=== PATIENT | female | born 1965 | race Caucasian/White ===

== ENCOUNTER 2020-06-28 16:22 | Emergency (ER) | payer MEDICARE, MEDICAID, SELFPAY ==
--- NOTE | 2020-06-28 | ECG_ITS ---
Test Reason : ALTERED MENTAL Blood Pressure : / mmHG Vent. Rate : 077 BPM Atrial Rate : 077 BPM P-R Int : 152 ms QRS Dur : 072 ms QT Int : 378 ms P-R-T Axes : 006 043 047 degrees QTc Int : 427 ms Normal sinus rhythm Normal ECG When compared with ECG of 31-MAY-2020 13:34, No significant change was found Referred By: Tristian Stanley Electronically Signed By:MARTA CESAR
--- NOTE | 2020-06-28 | CT_ITS ---
EXAMINATION: CT HEAD WITHOUT CONTRAST CLINICAL INFORMATION: Loss of consciousness. COMPARISON: Report from 05/31/2020. Images not available. TECHNIQUE: Contiguous axial imaging was performed from the skull base to vertex without intravenous contrast. This CT examination was performed using dose optimization techniques as appropriate, variously including the following: * Automated exposure control * Adjustment of mA and/or kV according to patient size (this includes techniques or standardized protocols for targeted exams where dose is matched to indication/reason for exam; i.e. extremities or head) Use of iterative reconstruction technique DLP: 640 mGy-cm. FINDINGS: Status post left parietal craniotomy with surgical plate fixation. Underlying area of encephalomalacia in the left parietal lobe. There is no evidence of acute intracranial hemorrhage or territorial infarction. No abnormal mass effect or midline shift is seen. Vasquez to white matter differentiation is otherwise well preserved. No extra-axial fluid collections are identified. No hydrocephalus. No significant volume loss. The osseous structures and soft tissues are normal. The mastoid air cells and visualized portions of the paranasal sinuses are well aerated. IMPRESSION: No acute intracranial pathology. Chronic left parietal encephalomalacia.
[2020-06-28 16:43] VITALS: BP 119/70; BP 86/59; PULSE 77; PULSE 80; RESP 18; TEMP 36.1; O2SAT 100; BMI 17.9
--- NOTE | 2020-06-28 17:05 | ED.AMS ---
HPI - Altered Mental Status General Chief Complaint: Altered Mental Status <Barber Romero MD - Last Filed: 06/28/20 20:16> Stated Complaint: ams <Barber Romero MD - Last Filed: 06/28/20 20:16> Time Seen by Provider: 06/28/20 17:04 <Barber Romero MD - Last Filed: 06/28/20 20:16> Source: EMS and RN notes reviewed <Barber Romero MD - Last Filed: 06/28/20 20:16> Mode of arrival: EMS <Barber Romero MD - Last Filed: 06/28/20 20:16> Limitations: altered mental status <Barber Romero MD - Last Filed: 06/28/20 20:16> History of Present Illness HPI narrative: Increased medication and now with lethargy and slurring. Patient also believes that she had seizures today. <Barber Romero MD - Last Filed: 06/28/20 20:16> MD complaint: altered mental status <Barber Romero MD - Last Filed: 06/28/20 20:16> Onset (ago): hour(s) <Barber Romero MD - Last Filed: 06/28/20 20:16> Severity: moderate <Barber Romero MD - Last Filed: 06/28/20 20:16> Consistency of symptoms: constant <Barber Romero MD - Last Filed: 06/28/20 20:16> Context: change in medication and seizure disorder <Barber Romero MD - Last Filed: 06/28/20 20:16> Associated symptoms: denies other symptoms <Barber Romero MD - Last Filed: 06/28/20 20:16> Related Data Allergies/Adverse Reactions: Allergies Allergy/AdvReac Type Severity Reaction Status Date / Time Iodinated Contrast Media Allergy Intermediate RED ALL Verified 06/28/20 16:53 [IV Dye, Iodine Containing] OVER NAUSEA AND LOST RESPIRATIONS Penicillins [PENICILLINS] Allergy Unknown UNKNOWN Verified 06/28/20 16:53 REACTION phenytoin [From Dilantin] Allergy Unknown Unknown Verified 06/28/20 16:55 <Barber Romero MD - Last Filed: 06/28/20 20:16> Review of Systems Constitutional: Constitutional: Reports no additional constitutional complaints <Barber Romero MD - Last Filed: 06/28/20 20:16> Eyes: Eyes: Reports no additional eye complaints <Barber Romero MD - Last Filed: 06/28/20 20:16> ENT: Denies dizziness <Barber Romero MD - Last Filed: 06/28/20 20:16> Cardiovascular: Cardiovascular: Reports no additional cardiovascular complaints <Barber Romero MD - Last Filed: 06/28/20 20:16> Respiratory: Respiratory: Reports as per HPI <Barber Romero MD - Last Filed: 06/28/20 20:16> Gastrointestinal: Gastrointestinal: Reports no additional gastrointestinal complaints <Barber Romero MD - Last Filed: 06/28/20 20:16> Genitourinary: Genitourinary: Reports no additional female genitourinary complaints <Barber Romero MD - Last Filed: 06/28/20 20:16> Musculoskeletal: Musculoskeletal: Reports no additional musculoskeletal complaints <Barber Romero MD - Last Filed: 06/28/20 20:16> Integumentary/Breasts: Skin/Breast: Denies rash <Barber Romero MD - Last Filed: 06/28/20 20:16> Neurologic: Denies dizziness and Denies Sensory deficit (Neuro) <Barber Romero MD - Last Filed: 06/28/20 20:16> Comments: lethargy <Barber Romero MD - Last Filed: 06/28/20 20:16> Psychiatric: Psychiatric: Denies anxiety <Barber Romero MD - Last Filed: 06/28/20 20:16> PMFSH Past Medical History Medical History: Medical History (Updated 06/29/20 @ 01:28 by Tristian Stanley DO) Hypotension Seizures <Barber Romero MD - Last Filed: 06/28/20 20:16> Surgical History: Surgical History (Updated 06/28/20 @ 16:49 by Nilda Reagan) Surgical history unknown <Barber Romero MD - Last Filed: 06/28/20 20:16> Social History Social History: Social History Advance Directives: No Advance Directives Information Provided: No <Barber Romero MD - Last Filed: 06/28/20 20:16> Physical Exam Vital Signs and I&O and Narrative: Vital Signs and I&O: Vital Signs Temp 97.9 F 06/28/20 21:03 Pulse 79 06/28/20 23:58 Resp 16 06/28/20 23:58 BP 110/55 L 06/28/20 23:58 Pulse Ox 99 06/28/20 23:58 Intake & Output 06/28/20 06/28/20 06/29/20 06:59 18:59 06:59 Weight 50.349 kg Body Mass Index 17.9 <Barber Romero MD - Last Filed: 06/28/20 20:16> Vital Signs and I&O: Vital Signs Temp 97.9 F 06/28/20 21:03 Pulse 79 06/28/20 23:58 Resp 16 06/28/20 23:58 BP 110/55 L 06/28/20 23:58 Pulse Ox 99 06/28/20 23:58 Intake & Output 06/28/20 06/28/20 06/29/20 06:59 18:59 06:59 Weight 50.349 kg Body Mass Index 17.9 <Tristian Stanley DO - Last Filed: 06/29/20 02:25> Const: Other: Female looking older than stated age, chronically ill, lethargic <Barber Romero MD - Last Filed: 06/28/20 20:16> General: lethargic <Barber Romero MD - Last Filed: 06/28/20 20:16> Nutritional Appearance: average body habitus <Barber Romero MD - Last Filed: 06/28/20 20:16> Orientation/consciousness: oriented to place and lethargic <Barber Romero MD - Last Filed: 06/28/20 20:16> Limitations: altered mental status <Barber Romero MD - Last Filed: 06/28/20 20:16> HENMT: Head: Yes normal to inspection <Barber Romero MD - Last Filed: 06/28/20 20:16> Ears: external ears normal <Barber Romero MD - Last Filed: 06/28/20 20:16> General nose exam: Normal external nose present <Barber Romero MD - Last Filed: 06/28/20 20:16> Mouth: Normal oral and palatal mucosa present and oropharynx normal <Barber Romero MD - Last Filed: 06/28/20 20:16> Throat: Yes posterior oropharynx normal <Barber Romero MD - Last Filed: 06/28/20 20:16> Eyes: General: appearance normal, both eyes and all related structures <Barber Romero MD - Last Filed: 06/28/20 20:16> Neck: Other: supple <Barber Romero MD - Last Filed: 06/28/20 20:16> Neck: Yes normal visual inspection <Barber Romero MD - Last Filed: 06/28/20 20:16> Chest: Chest palpation & inspection: normal inspection of the chest <Barber Romero MD - Last Filed: 06/28/20 20:16> Resp: Auscultation: clear to auscultation bilaterally <Barber Romero MD - Last Filed: 06/28/20 20:16> Cardio: Jugular venous distension: no JVD <Barber Romero MD - Last Filed: 06/28/20 20:16> Rate: regular rate <Barber Romero MD - Last Filed: 06/28/20 20:16> Rhythm: regular rhythm <Barber Romero MD - Last Filed: 06/28/20 20:16> Heart sounds: S1 normal heart sound present and S2 normal heart sound present <Barber Romero MD - Last Filed: 06/28/20 20:16> GI: Inspection: Yes normal to inspection <Barber Romero MD - Last Filed: 06/28/20 20:16> Palpation (GI): Soft to palpation, nontender and No hepatosplenomegaly present <Barber Romero MD - Last Filed: 06/28/20 20:16> Auscultation: normal bowel sounds <Barber Romero MD - Last Filed: 06/28/20 20:16> : General: Yes no CVA tenderness <Barber Romero MD - Last Filed: 06/28/20 20:16> Back/Spine/Pelvis: Back: no CVA tenderness <Barber Romero MD - Last Filed: 06/28/20 20:16> Skin: General skin exam: no rashes or lesions noted <Barber Romero MD - Last Filed: 06/28/20 20:16> Neuro: General: oriented to place <Barber Romero MD - Last Filed: 06/28/20 20:16> Cranial nerves: Yes CN's II-XII intact bilaterally <Barber Romero MD - Last Filed: 06/28/20 20:16> Motor exam (neuro): 5/5 motor strength present throughout <Barber Romero MD - Last Filed: 06/28/20 20:16> Sensory Exam: No Sensory deficit (Neuro) <Barber Romero MD - Last Filed: 06/28/20 20:16> Extrem: General: Yes normal to inspection <Barber Romero MD - Last Filed: 06/28/20 20:16> Psych: Appearance: grossly normal <Barber Romero MD - Last Filed: 06/28/20 20:16> Course Course Course Narrative: awaiting family and list of meds patient verbally arousable. <Barber Romero MD - Last Filed: 06/28/20 20:16> Patient's altered status had dramatically improved in the emergency department. CT scan of the brain showed was negative laboratory work within normal limits. Patient was able to walk around the ER tolerating p.o. his family is picking up patient. I do believe the patient medicine and was recently increased Xcorpi from 12.5-25 mg is causing her to have drowsiness as a side effect. I did discuss this with patient and family in regards to follow-up with primary care on further directions and to hold medication and till speaking with them <Tristian Stanley DO - Last Filed: 06/29/20 02:25> Reevaluation(s) Reevaluation #1: signed out to Dr. Stanley awaiting patient to sober up and medication list <Barber Romero MD - Last Filed: 06/28/20 20:16> Time: 20:16 <Barber Romero MD - Last Filed: 06/28/20 20:16> MDM - Altered Mental Status Lab Data Result diagrams: : 06/28/20 18:10 06/28/20 18:10 <Barber Romero MD - Last Filed: 06/28/20 20:16> Labs: Lab Results 06/28/20 06/28/20 06/28/20 Range/Units 17:38 18:10 18:10 WBC 7.3 (4.8-10.8) X10*3/uL RBC 3.62 L (4.20-5.50) X10*6/uL Hgb 11.0 L (12.0-16.0) g/dl Hct 33.1 L (37-47) % MCV 91.4 (80-98) fL MCH 30.4 (27.0-33.0) pg MCHC 33.2 (31.0-35.0) g/dl RDW 14.1 (11.0-16.0) % Plt Count 319 (160-400) X10*3/uL MPV 8.3 L (9.4-12.3) fL Immature Gran % (Auto) 0.4 (0.0-0.4) % Neut % (Auto) 71.9 (45-73) % Lymph % (Auto) 14.0 L (20-40) % Lipscomb % (Auto) 11.7 H (2-11) % Eos % (Auto) 1.2 (0-4) % Baso % (Auto) 0.8 (0-2) % Neut # (Auto) 5.2 (2.0-8.3) X10*3/uL Lymph # (Auto) 1.0 L (1.2-4.9) X10*3/uL Lipscomb # (Auto) 0.9 (0.1-1.2) X10*3/uL Eos # (Auto) 0.1 (0.0-0.4) X10*3/uL Baso # (Auto) 0.1 (0.0-0.2) X10*3/uL Abs Immat Gran (auto) 0.03 (0.00-0.03) X10*3/uL Absolute Nucleated RBC 0.000 (0.0-0.012) X10*3/uL Nucleated RBC % (auto) 0.0 (0.0-0.2) /100WBC Hold Blue Top SEE NOTE Sodium (135-145) mmol/L Potassium (3.3-5.1) mmol/l Chloride (96-108) mmol/L Carbon Dioxide (22-29) mmol/L Anion Gap (12-20) BUN (9-16) mg/dL Creatinine (0.5-1.4) mg/dL Estim Creat Clear Calc Estimated GFR POC Glucose 71 (60-115) mg/dL Random Glucose (60-115) mg/dL Calcium (8.4-10.2) mg/dL Troponin I High Sens (<3.5-17.0) ng/L Urine Color Urine Appearance Urine pH (5.0-8.0) Ur Specific [place] (1.005-1.025) Urine Protein (NEG-TRACE) MG/DL Urine Glucose (UA) (NEG) MG/DL Urine Ketones (NEG) MG/DL Urine Blood (NEG) Urine Nitrite (NEG) Ur Leukocyte Esterase (NEG) Urine Test (NEGATIVE) Urine Opiates Screen (Not Detect) Ur Barbiturates Screen (Not Detect) Ur Phencyclidine Scrn (Not Detect) Ur Amphetamines Screen (Not Detect) U Benzodiazepines Scrn (Not Detect) Urine Cocaine Screen (Not Detect) U Marijuana (THC) Screen (Not Detect) Ethyl Alcohol mg/dL 06/28/20 06/28/20 06/28/20 Range/Units 18:10 18:10 21:01 WBC (4.8-10.8) X10*3/uL RBC (4.20-5.50) X10*6/uL Hgb (12.0-16.0) g/dl Hct (37-47) % MCV (80-98) fL MCH (27.0-33.0) pg MCHC (31.0-35.0) g/dl RDW (11.0-16.0) % Plt Count (160-400) X10*3/uL MPV (9.4-12.3) fL Immature Gran % (Auto) (0.0-0.4) % Neut % (Auto) (45-73) % Lymph % (Auto) (20-40) % Lipscomb % (Auto) (2-11) % Eos % (Auto) (0-4) % Baso % (Auto) (0-2) % Neut # (Auto) (2.0-8.3) X10*3/uL Lymph # (Auto) (1.2-4.9) X10*3/uL [place]comb # (Auto) (0.1-1.2) X10*3/uL Eos # (Auto) (0.0-0.4) X10*3/uL Baso # (Auto) (0.0-0.2) X10*3/uL Abs Immat Gran (auto) (0.00-0.03) X10*3/uL Absolute Nucleated RBC (0.0-0.012) X10*3/uL Nucleated RBC % (auto) (0.0-0.2) /100WBC Hold Blue Top Sodium 131 L (135-145) mmol/L Potassium 4.8 (3.3-5.1) mmol/l Chloride 96 (96-108) mmol/L Carbon Dioxide 27 (22-29) mmol/L Anion Gap 13 (12-20) BUN 12 (9-16) mg/dL Creatinine 0.64 (0.5-1.4) mg/dL Estim Creat Clear Calc 81.7 Estimated GFR > 60 POC Glucose (60-115) mg/dL Random Glucose 77 (60-115) mg/dL Calcium 8.8 (8.4-10.2) mg/dL Troponin I High Sens (<3.5-17.0) ng/L Urine Color YELLOW Urine Appearance CLEAR Urine pH 7.0 (5.0-8.0) Ur Specific [place] 1.020 (1.005-1.025) Urine Protein NEG (NEG-TRACE) MG/DL Urine Glucose (UA) NEG (NEG) MG/DL Urine Ketones NEG (NEG) MG/DL Urine Blood NEG (NEG) Urine Nitrite NEG (NEG) Ur Leukocyte Esterase NEG (NEG) Urine Test (NEGATIVE) Urine Opiates Screen (Not Detect) Ur Barbiturates Screen (Not Detect) Ur Phencyclidine Scrn (Not Detect) Ur Amphetamines Screen (Not Detect) U Benzodiazepines Scrn (Not Detect) Urine Cocaine Screen (Not Detect) U Marijuana (THC) Screen (Not Detect) Ethyl Alcohol < 10 mg/dL 06/28/20 06/28/20 06/28/20 Range/Units 21:01 21:01 21:01 WBC (4.8-10.8) X10*3/uL RBC (4.20-5.50) X10*6/uL Hgb (12.0-16.0) g/dl Hct (37-47) % MCV (80-98) fL MCH (27.0-33.0) pg MCHC (31.0-35.0) g/dl RDW (11.0-16.0) % Plt Count (160-400) X10*3/uL MPV (9.4-12.3) fL Immature Gran % (Auto) (0.0-0.4) % Neut % (Auto) (45-73) % Lymph % (Auto) (20-40) % Lipscomb % (Auto) (2-11) % Eos % (Auto) (0-4) % Baso % (Auto) (0-2) % Neut # (Auto) (2.0-8.3) X10*3/uL Lymph # (Auto) (1.2-4.9) X10*3/uL [place]comb # (Auto) (0.1-1.2) X10*3/uL Eos # (Auto) (0.0-0.4) X10*3/uL Baso # (Auto) (0.0-0.2) X10*3/uL Abs Immat Gran (auto) (0.00-0.03) X10*3/uL Absolute Nucleated RBC (0.0-0.012) X10*3/uL Nucleated RBC % (auto) (0.0-0.2) /100WBC Hold Blue Top Sodium (135-145) mmol/L Potassium (3.3-5.1) mmol/l Chloride (96-108) mmol/L Carbon Dioxide (22-29) mmol/L Anion Gap (12-20) BUN (9-16) mg/dL Creatinine (0.5-1.4) mg/dL Estim Creat Clear Calc Estimated GFR POC Glucose (60-115) mg/dL Random Glucose (60-115) mg/dL Calcium (8.4-10.2) mg/dL Troponin I High Sens < 3.5 (<3.5-17.0) ng/L Urine Color Urine Appearance Urine pH (5.0-8.0) Ur Specific [place] (1.005-1.025) Urine Protein (NEG-TRACE) MG/DL Urine Glucose (UA) (NEG) MG/DL Urine Ketones (NEG) MG/DL Urine Blood (NEG) Urine Nitrite (NEG) Ur Leukocyte Esterase (NEG) Urine Test NEGATIVE (NEGATIVE) Urine Opiates Screen Not Detected (Not Detect) Ur Barbiturates Screen POSITIVE H (Not Detect) Ur Phencyclidine Scrn Not Detected (Not Detect) Ur Amphetamines Screen Not Detected (Not Detect) U Benzodiazepines Scrn POSITIVE H (Not Detect) Urine Cocaine Screen Not Detected (Not Detect) U Marijuana (THC) Screen Not Detected (Not Detect) Ethyl Alcohol mg/dL <Barber Romero MD - Last Filed: 06/28/20 20:16> Lab Results 06/28/20 06/28/20 06/28/20 Range/Units 17:38 18:10 18:10 WBC 7.3 (4.8-10.8) X10*3/uL RBC 3.62 L (4.20-5.50) X10*6/uL Hgb 11.0 L (12.0-16.0) g/dl Hct 33.1 L (37-47) % MCV 91.4 (80-98) fL MCH 30.4 (27.0-33.0) pg MCHC 33.2 (31.0-35.0) g/dl RDW 14.1 (11.0-16.0) % Plt Count 319 (160-400) X10*3/uL MPV 8.3 L (9.4-12.3) fL Immature Gran % (Auto) 0.4 (0.0-0.4) % Neut % (Auto) 71.9 (45-73) % Lymph % (Auto) 14.0 L (20-40) % Lipscomb % (Auto) 11.7 H (2-11) % Eos % (Auto) 1.2 (0-4) % Baso % (Auto) 0.8 (0-2) % Neut # (Auto) 5.2 (2.0-8.3) X10*3/uL Lymph # (Auto) 1.0 L (1.2-4.9) X10*3/uL [place] # (Auto) 0.9 (0.1-1.2) X10*3/uL Eos # (Auto) 0.1 (0.0-0.4) X10*3/uL Baso # (Auto) 0.1 (0.0-0.2) X10*3/uL Abs Immat Gran (auto) 0.03 (0.00-0.03) X10*3/uL Absolute Nucleated RBC 0.000 (0.0-0.012) X10*3/uL Nucleated RBC % (auto) 0.0 (0.0-0.2) /100WBC Hold Blue Top SEE NOTE Sodium (135-145) mmol/L Potassium (3.3-5.1) mmol/l Chloride (96-108) mmol/L Carbon Dioxide (22-29) mmol/L Anion Gap (12-20) BUN (9-16) mg/dL Creatinine (0.5-1.4) mg/dL Estim Creat Clear Calc Estimated GFR POC Glucose 71 (60-115) mg/dL Random Glucose (60-115) mg/dL Calcium (8.4-10.2) mg/dL Troponin I High Sens (<3.5-17.0) ng/L Urine Color Urine Appearance Urine pH (5.0-8.0) Ur Specific [place] (1.005-1.025) Urine Protein (NEG-TRACE) MG/DL Urine Glucose (UA) (NEG) MG/DL Urine Ketones (NEG) MG/DL Urine Blood (NEG) Urine Nitrite (NEG) Ur Leukocyte Esterase (NEG) Urine Test (NEGATIVE) Urine Opiates Screen (Not Detect) Ur Barbiturates Screen (Not Detect) Ur Phencyclidine Scrn (Not Detect) Ur Amphetamines Screen (Not Detect) U Benzodiazepines Scrn (Not Detect) Urine Cocaine Screen (Not Detect) U Marijuana (THC) Screen (Not Detect) Ethyl Alcohol mg/dL 06/28/20 06/28/20 06/28/20 Range/Units 18:10 18:10 21:01 WBC (4.8-10.8) X10*3/uL RBC (4.20-5.50) X10*6/uL Hgb (12.0-16.0) g/dl Hct (37-47) % MCV (80-98) fL MCH (27.0-33.0) pg MCHC (31.0-35.0) g/dl RDW (11.0-16.0) % Plt Count (160-400) X10*3/uL MPV (9.4-12.3) fL Immature Gran % (Auto) (0.0-0.4) % Neut % (Auto) (45-73) % Lymph % (Auto) (20-40) % [place] % (Auto) (2-11) % Eos % (Auto) (0-4) % Baso % (Auto) (0-2) % Neut # (Auto) (2.0-8.3) X10*3/uL Lymph # (Auto) (1.2-4.9) X10*3/uL [place] # (Auto) (0.1-1.2) X10*3/uL Eos # (Auto) (0.0-0.4) X10*3/uL Baso # (Auto) (0.0-0.2) X10*3/uL Abs Immat Gran (auto) (0.00-0.03) X10*3/uL Absolute Nucleated RBC (0.0-0.012) X10*3/uL Nucleated RBC % (auto) (0.0-0.2) /100WBC Hold Blue Top Sodium 131 L (135-145) mmol/L Potassium 4.8 (3.3-5.1) mmol/l Chloride 96 (96-108) mmol/L Carbon Dioxide 27 (22-29) mmol/L Anion Gap 13 (12-20) BUN 12 (9-16) mg/dL Creatinine 0.64 (0.5-1.4) mg/dL Estim Creat Clear Calc 81.7 Estimated GFR > 60 POC Glucose (60-115) mg/dL Random Glucose 77 (60-115) mg/dL Calcium 8.8 (8.4-10.2) mg/dL Troponin I High Sens (<3.5-17.0) ng/L Urine Color YELLOW Urine Appearance CLEAR Urine pH 7.0 (5.0-8.0) Ur Specific [place] 1.020 (1.005-1.025) Urine Protein NEG (NEG-TRACE) MG/DL Urine Glucose (UA) NEG (NEG) MG/DL Urine Ketones NEG (NEG) MG/DL Urine Blood NEG (NEG) Urine Nitrite NEG (NEG) Ur Leukocyte Esterase NEG (NEG) Urine Test (NEGATIVE) Urine Opiates Screen (Not Detect) Ur Barbiturates Screen (Not Detect) Ur Phencyclidine Scrn (Not Detect) Ur Amphetamines Screen (Not Detect) U Benzodiazepines Scrn (Not Detect) Urine Cocaine Screen (Not Detect) U Marijuana (THC) Screen (Not Detect) Ethyl Alcohol < 10 mg/dL 06/28/20 06/28/20 06/28/20 Range/Units 21:01 21:01 21:01 WBC (4.8-10.8) X10*3/uL RBC (4.20-5.50) X10*6/uL Hgb (12.0-16.0) g/dl Hct (37-47) % MCV (80-98) fL MCH (27.0-33.0) pg MCHC (31.0-35.0) g/dl RDW (11.0-16.0) % Plt Count (160-400) X10*3/uL MPV (9.4-12.3) fL Immature Gran % (Auto) (0.0-0.4) % Neut % (Auto) (45-73) % Lymph % (Auto) (20-40) % [place] % (Auto) (2-11) % Eos % (Auto) (0-4) % Baso % (Auto) (0-2) % Neut # (Auto) (2.0-8.3) X10*3/uL Lymph # (Auto) (1.2-4.9) X10*3/uL [place] # (Auto) (0.1-1.2) X10*3/uL Eos # (Auto) (0.0-0.4) X10*3/uL Baso # (Auto) (0.0-0.2) X10*3/uL Abs Immat Gran (auto) (0.00-0.03) X10*3/uL Absolute Nucleated RBC (0.0-0.012) X10*3/uL Nucleated RBC % (auto) (0.0-0.2) /100WBC Hold Blue Top Sodium (135-145) mmol/L Potassium (3.3-5.1) mmol/l Chloride (96-108) mmol/L Carbon Dioxide (22-29) mmol/L Anion Gap (12-20) BUN (9-16) mg/dL Creatinine (0.5-1.4) mg/dL Estim Creat Clear Calc Estimated GFR POC Glucose (60-115) mg/dL Random Glucose (60-115) mg/dL Calcium (8.4-10.2) mg/dL Troponin I High Sens < 3.5 (<3.5-17.0) ng/L Urine Color Urine Appearance Urine pH (5.0-8.0) Ur Specific [place] (1.005-1.025) Urine Protein (NEG-TRACE) MG/DL Urine Glucose (UA) (NEG) MG/DL Urine Ketones (NEG) MG/DL Urine Blood (NEG) Urine Nitrite (NEG) Ur Leukocyte Esterase (NEG) Urine Test NEGATIVE (NEGATIVE) Urine Opiates Screen Not Detected (Not Detect) Ur Barbiturates Screen POSITIVE H (Not Detect) Ur Phencyclidine Scrn Not Detected (Not Detect) Ur Amphetamines Screen Not Detected (Not Detect) U Benzodiazepines Scrn POSITIVE H (Not Detect) Urine Cocaine Screen Not Detected (Not Detect) U Marijuana (THC) Screen Not Detected (Not Detect) Ethyl Alcohol mg/dL <Tristian Stanley DO - Last Filed: 06/29/20 02:25> Discharge Plan Discharge Clinical Impression: Medication adverse effect Qualifiers: Encounter type: initial encounter Qualified Code(s): T50.905A - Adverse effect of unspecified drugs, medicaments and biological substances, initial encounter <Barber Romero MD - Last Filed: 06/28/20 20:16> Patient Disposition: Home, Self-Care <Barber Romero MD - Last Filed: 06/28/20 20:16> Instructions: Medication Safety for Older Adults (ED) <Barber Romero MD - Last Filed: 06/28/20 20:16> Additional Instructions: call your doctor in the morning in regards to your medication Xcorpri which I believe has been making you more altered than usual. Thank you for visiting the emergency department today. If your symptoms worsen or do not resolve completely please return to the emergency department immediately or call 911. if he have any questions please call your primary care physician <Barber Romero MD - Last Filed: 06/28/20 20:16> Referrals: [facility] [Provider Group] - 2 days <Barber Romero MD - Last Filed: 06/28/20 20:16> Interventions: ED Discharge Assessment Last Done: 06/29/20 01:42 <Barber Romero MD - Last Filed: 06/28/20 20:16> Discharge Date/Time: 06/29/20 01:46 <Barber Romero MD - Last Filed: 06/28/20 20:16>
[2020-06-28 17:41] LABS: Glucose, Whole Blood 71 mg/dL (60-115)
[2020-06-28 18:14] LABS: MANUAL DIFF FLAG NO
[2020-06-28 18:16] LABS: Basophils Absolute Auto 0.1 X10*3/uL (0.0-0.2); Basophils Percent Auto 0.8 % (0-2); Eosinophils Absolute Auto 0.1 X10*3/uL (0.0-0.4); Eosinophils Percent Auto 1.2 % (0-4); Hematocrit 33.1 % (37-47); Imm Gran Abs Auto 0.03 X10*3/uL (0.00-0.03); Imm Gran Pct Auto 0.4 % (0.0-0.4); Mean Corpuscular HGB Conc 33.2 g/dl (31.0-35.0); Mean Corpuscular Hemoglobin 30.4 pg (27.0-33.0); Mean Corpuscular Volume 91.4 fL (80-98); Mean Platelet Volume 8.3 fL (9.4-12.3); Monocytes Absolute Auto 0.9 X10*3/uL (0.1-1.2); Monocytes Percent Auto 11.7 % (2-11); Neutrophils Absolute Auto 5.2 X10*3/uL (2.0-8.3); Neutrophils Percent Auto 71.9 % (45-73); Platelet Count 319 X10*3/uL (160-400); Red Blood Count 3.62 X10*6/uL (4.20-5.50); Red Cell Distribution Width 14.1 % (11.0-16.0); White Blood Count 7.3 X10*3/uL (4.8-10.8)
[2020-06-28 18:38] LABS: Ethanol < 10 mg/dL
[2020-06-28 18:40] LABS: Anion Gap 13 (12-20); Blood Urea Nitrogen 12 mg/dL (9-16); Calcium 8.8 mg/dL (8.4-10.2); Carbon Dioxide 27 mmol/L (22-29); Chloride 96 mmol/L (96-108); Creatinine Clr Calc Pharmacy 81.7; Estimated Glomerular Filt Rate > 60; Glucose Random 77 mg/dL (60-115); Potassium 4.8 mmol/l (3.3-5.1); Sodium 131 mmol/L (135-145)
--- NOTE | 2020-06-28 19:20 | PC.NURSE ---
Report taken from Kenisha, this RN resuming care. Pt found sitting upright in bed, awake and alert, speech garbled, pt very difficult to understand. Per previous RN, garbled speech and slow movements since increase in unknown SZ medication. Continue to monitor.
--- NOTE | 2020-06-28 20:23 | PC.NURSE ---
Per MD, plan to obtain UA and eat/drink. Pt removing IV at this time. Pt found holding jloop in her hand.
--- NOTE | 2020-06-28 20:40 | PC.NURSE ---
Per daughter, pts medications are locked in a lock box and given to her by an RN. Per daughter, the new SZ medication is Xcopri and the dose was increased from 12.5 mg to 25 mg. Per daughter, she has only been on Xcopri for 4 weeks. Pt assisted to the bathroom but was unable to void, per bladder scan, 518 ml in bladder. aware. Pt provided with food/drink at this time.
[2020-06-28 21:03] VITALS: BP 132/80; PULSE 76; RESP 16; TEMP 36.6; O2SAT 100
[2020-06-28 21:32] LABS: Glucose Urine UA NEG (NEG); Leukocyte Esterase Urine NEG (NEG); Nitrite Urine NEG (NEG); Urine Blood NEG (NEG); Urine Ketones NEG (NEG); Urine Protein NEG (NEG-TRACE)
[2020-06-28 21:36] LABS: Amphetamine Screen Urine Not Detected (Not Detect); Barbiturates, Urine POSITIVE (Not Detect); Benzodiazepines Screen Urine POSITIVE (Not Detect); Cannabinoid Screen Urine Not Detected (Not Detect); Cocaine Screen Urine Not Detected (Not Detect); Opiate Screen Urine Not Detected (Not Detect); Phencyclidine Screen Urine Not Detected (Not Detect)
[2020-06-28 21:37] LABS: Appearance Urine CLEAR; Color Urine YELLOW; UACC Culture Trigger NO
[2020-06-28 21:40] LABS: Troponin-I High Sensitivity < 3.5 ng/L (<3.5-17.0)
[2020-06-28 21:42] LABS: UPreg QC Valid YES; Urine Pregnancy NEGATIVE (NEGATIVE)
[2020-06-28 23:58] VITALS: BP 110/55; PULSE 79; RESP 16; O2SAT 99
--- NOTE | 2020-06-29 00:27 | PC.NURSE ---
Pt ambulating with a steady gait, agreeable to plan to DC home.
--- NOTE | 2020-06-29 00:53 | PC.NURSE ---
This RN calling pts daughter to obtain a ride home, daughter not answering phone at this time.
--- NOTE | 2020-06-29 01:20 | PC.NURSE ---
Daughter calling back, stating she will be on her way to pick pt up. aware.
== END 2020-06-29 01:46 | disposition home or self-care (01) ==
PROVIDERS: Emergency Medicine; Emergency Provider Emergency Medicine
DX: R41.82 Altered mental status, unspecified (principal); R47.81 Slurred speech; T50.915A Adverse effect of multiple unspecified drugs, medicaments and biological substances, initial encounter; Y92.9 Unspecified place or not applicable; Z79.899 Other long term (current) drug therapy
CPT/HCPCS: 36415; 70450; 80048; 80307; 80320; 81003; 81025; 82947; 84484; 85025; 93005; 93010; 99284

== ENCOUNTER 2020-09-28 16:52 | Emergency (ER) | payer OTHER, MEDICAID, SELFPAY ==
[2020-09-28 17:08] VITALS: BP 144/82; PULSE 63; RESP 13; TEMP 36.8; O2SAT 100; BMI 27.4
--- NOTE | 2020-09-28 17:31 | ECG_ITS ---
Test Reason : FALL HEAD TRAUMA SEI Blood Pressure : / mmHG Vent. Rate : 073 BPM Atrial Rate : 073 BPM P-R Int : 166 ms QRS Dur : 078 ms QT Int : 386 ms P-R-T Axes : 073 065 071 degrees QTc Int : 425 ms Normal sinus rhythm Normal ECG When compared with ECG of 28-JUN-2020 20:49, No significant change was found Referred By: Brittany Leroy Electronically Signed By:Yuri Burnette
--- NOTE | 2020-09-28 17:31 | CT_ITS ---
EXAMINATION: CT HEAD WITHOUT CONTRAST CT CERVICAL SPINE WITHOUT CONTRAST CLINICAL INFORMATION: Seizures. Head trauma. COMPARISON: CT head 06/28/2020. CT cervical spine 03/07/2020 TECHNIQUE: Imaging was performed from the skull base to vertex without intravenous administration of contrast. In addition, helical noncontrast CT imaging was acquired through the cervical spine and source images were reviewed along with axial reconstructions and sagittal and coronal MPRs. [This CT examination was performed using dose optimization techniques as appropriate, variously including the following: *Automated exposure control *Adjustment of mA and/or kV according to patient size (this includes techniques or standardized protocols for targeted exams where dose is matched to indication/reason for exam; i.e. extremities or head) *Use of iterative reconstruction technique] DLP: 1077 mGy-cm FINDINGS: HEAD: Status post left parietal craniotomy with surgical fixation plates and screws. There is focal encephalomalacia in the left parietal lobe adjacent to the craniotomy site. There is associated ex vacuo dilatation of the trigone the left lateral ventricle. These are chronic changes stable since prior studies. There is no acute abnormality. No acute intracranial hemorrhage. No mass effect. No extra-axial collections. Vasquez-white matter differentiation is maintained. The paranasal sinuses and mastoid air cells are well aerated. CERVICAL SPINE: There is no evidence of acute cervical spine fracture. Vertebral bodies remain normal in height. Cervical vertebrae have normal alignment. There is mild degenerative change of cervical spine. No prevertebral soft tissue swelling. There are surgical clips and calcifications adjacent to the left lobe of thyroid . Limited assessment of the lung apices is unremarkable. CT/CT cervical spine wo con IMPRESSION: 1. No acute intracranial pathology. 2. No CT evidence of acute cervical spine fracture or traumatic subluxation
--- NOTE | 2020-09-28 18:01 | ED.SEIZURE ---
HPI - Seizure General Chief Complaint: Seizure Stated Complaint: SZ PER FAMILY Time Seen by Provider: 09/28/20 17:31 Source: patient and EMS Mode of arrival: EMS Limitations: language barrier History of Present Illness HPI Narrative: 54-year-old female presents via EMS in a C-collar after a suspected seizure with fall, head lacerations, and unknown down time. Patient does have a known seizure disorder, and per family members has had postictal behaviors when found on the floor in her bedroom. She does state to have neck pain and headache and is in a C-collar at this time. complaint: seizure Onset (ago): hour(s) Description of Episode: loss of consciousness and post-event confusion Witnessed: No Trauma: Yes Seizure History: Yes Place: Home Associated symptoms: confusion Treatments prior to arrival: cervical collar Related Data Home Medications Medication Instructions Recorded Confirmed cenobamate [Xcopri] 1 tab PO DAILY 09/28/20 09/28/20 clobazam 1 tab PO BID 09/28/20 09/28/20 dicyclomine 1 tab PO TID 09/28/20 09/28/20 eslicarbazepine [Aptiom] 3 tab PO DAILY 09/28/20 09/28/20 pantoprazole 1 tab PO DAILY 09/28/20 09/28/20 phenobarbital 2 tab PO BEDTIME 09/28/20 09/28/20 quetiapine 1 tab PO BEDTIME 09/28/20 09/28/20 risperidone 1 tab PO BEDTIME 09/28/20 09/28/20 sucralfate 2 tab PO DAILY 09/28/20 09/28/20 Allergies Allergy/AdvReac Type Severity Reaction Status Date / Time Iodinated Contrast Media Allergy Intermediate RED ALL Verified 06/28/20 16:53 [IV Dye, Iodine Containing] OVER NAUSEA AND LOST RESPIRATIONS Penicillins [PENICILLINS] Allergy Unknown UNKNOWN Verified 06/28/20 16:53 REACTION phenytoin [From Dilantin] Allergy Unknown Unknown Verified 06/28/20 16:55 Review of Systems Review of Systems: Constitutional: No Fever, No Chills ENT/Mouth: No Ear Pain, No Hoarseness, No sore throat Eyes: No Eye Pain, No Swelling, No Redness, No Foreign Body Cardiovascular: No Chest Pain, No SOB Respiratory: No Cough, No Dyspnea Gastrointestinal: No Nausea, No Vomiting, No Diarrhea, No abdominal Pain Genitourinary: No Dysuria, No Hematuria Musculoskeletal: positive joint pain, No Myalgias, No Joint Swelling Skin: Positive scalp lacerations, No rash Neuro: Positive postictal, No Weakness, No Numbness, No Paresthesias, positive Loss of Consciousness, No Dizziness, positive Headache Psych: No Anxiety/Panic, No Depression Heme/Lymph: no easy bruising, no Lymphadenopathy Endocrine: No Polyuria, No Polydipsia Yes all other systems are reviewed and are negative [facility] Past Medical History Attestation statement: The following information was validated with the patient. Medical History Hypotension Seizures Surgical History Surgical history unknown Social History Social History Smoked in Last 30 Days: No Use of substances other than those prescribed or required for medical reasons: No Advance Directives: No Advance Directives Information Provided: No Physical Exam Vital Signs: Vital Signs: Last Vital Signs Temp 98.3 F 09/28/20 17:08 Pulse 63 09/28/20 17:08 Resp 13 09/28/20 17:08 BP 144/82 H 09/28/20 17:08 Pulse Ox 100 09/28/20 17:08 Body Mass Index 27.4 Appearance: Alert. Oriented X3. Mild distress. Eyes: Pupils equal, round and reactive to light. EOMI, no focal neural deficits. ENT: Pharynx normal. Neck: Normal inspection. Neck supple. CVS: Normal heart rate and rhythm. Pulses normal. Respiratory: No respiratory distress. Lung sounds clear to auscultation all lobes. Abdomen: Soft and nontender. Skin: 2 cm laceration to left parietal, 3 cm laceration to the right occiput, otherwise Skin warm and dry. Normal skin color. Normal skin turgor. Extremities: No lower extremity edema. Full range of motion to all extremities, strength 5/5 to all extremities. Brisk capillary refill and pulses equal to all extremities. Neuro: No motor deficit. No sensory deficit. Course Course Course Narrative: 54-year-old female with known seizure disorder presents for after a seizure, with fall and head trauma and unknown down time. She is in a C-collar, plan of care is for CT scan of head, cervical spine, CBC, Chem 7, EKG, tropes, and urinalysis. Patient does not take any seizure medications that require laboratory values. Laceration 1 is approximately 2 cm to the crown of the head laceration 2 is proximally 3 cm to the right occiput.. Plan is to staple once CT scan returns. Tdap updated today. CT scan negative for acute findings. 4 jacquelyn to laceration 1, 6 jacquelyn to laceration to. Patient tolerated procedure well. Both wounds irrigated and cleaned with copious amounts of normal saline and H2O2 in equal parts. Patient does understand that she must return in 10 days to have jacquelyn removed. electrical inspector utilized for all correspondence, Google translate utilized for discharge instructions. Procedures Laceration Laceration 1: Site: scalp Side (If applicable): left Size (cm): 2 Description: linear Depth: simple, single layer Pre-repair: wound explored, irrigated extensively and deep structures intact Skin layer closed with: other (Trout) Number of sutures: 4 Laceration 2: Site: scalp Side (If applicable): right Size (cm): 3 Description: linear Depth: simple, single layer Pre-repair: wound explored, irrigated extensively and deep structures intact Skin layer closed with: other (Jacquelyn) Number of sutures: 6 MDM - Seizure Differential Diagnosis Differential diagnosis: Likely focal seizure, generalized seizure and epileptic seizure Medical Records Attestation: I reviewed the patient's medical records. Lab Data Attestation: I reviewed the patient's lab results. Result diagrams: 09/28/20 18:29 09/28/20 18:29 Labs: Lab Results 09/28/20 09/28/20 09/28/20 Range/Units 17:55 18:29 18:29 WBC 4.9 (4.8-10.8) X10*3/uL RBC 4.12 L (4.20-5.50) X10*6/uL Hgb 12.2 (12.0-16.0) g/dl Hct 36.6 L (37-47) % MCV 88.8 (80-98) fL MCH 29.6 (27.0-33.0) pg MCHC 33.3 (31.0-35.0) g/dl RDW 13.6 (11.0-16.0) % Plt Count 206 D (160-400) X10*3/uL MPV 9.6 (9.4-12.3) fL Immature Gran % (Auto) 0.2 (0.0-0.4) % Neut % (Auto) 63.6 (45-73) % Lymph % (Auto) 22.8 (20-40) % [place] % (Auto) 10.6 (2-11) % Eos % (Auto) 1.8 (0-4) % Baso % (Auto) 1.0 (0-2) % Lymph # (Auto) 1.1 L (1.2-4.9) X10*3/uL [place] # (Auto) 0.5 (0.1-1.2) X10*3/uL Eos # (Auto) 0.1 (0.0-0.4) X10*3/uL Baso # (Auto) 0.1 (0.0-0.2) X10*3/uL Abs Immat Gran (auto) 0.01 (0.00-0.03) X10*3/uL Absolute Neuts (auto) 3.1 (2.0-8.3) X10*3/uL Absolute Nucleated RBC 0.000 (0.0-0.012) X10*3/uL Nucleated RBC % (auto) 0.0 (0.0-0.2) /100WBC Sodium 130 L (135-145) mmol/L Potassium 5.1 (3.3-5.1) mmol/l Chloride 95 L (96-108) mmol/L Carbon Dioxide 26 (22-29) mmol/L Anion Gap 14 (12-20) BUN 16 (9-16) mg/dL Creatinine 0.71 (0.5-1.4) mg/dL Estim Creat Clear Calc 93.8 Estimated GFR > 60 POC Glucose 88 (60-115) mg/dL Random Glucose 86 (60-115) mg/dL Calcium 8.6 (8.4-10.2) mg/dL Magnesium (1.6-2.6) mg/dL Total Creatine Kinase 66 (26-140) U/L Troponin I High Sens (<3.5-17.0) ng/L 09/28/20 09/28/20 Range/Units 18:29 18:29 WBC (4.8-10.8) X10*3/uL RBC (4.20-5.50) X10*6/uL Hgb (12.0-16.0) g/dl Hct (37-47) % MCV (80-98) fL MCH (27.0-33.0) pg MCHC (31.0-35.0) g/dl RDW (11.0-16.0) % Plt Count (160-400) X10*3/uL MPV (9.4-12.3) fL Immature Gran % (Auto) (0.0-0.4) % Neut % (Auto) (45-73) % Lymph % (Auto) (20-40) % [place] % (Auto) (2-11) % Eos % (Auto) (0-4) % Baso % (Auto) (0-2) % Lymph # (Auto) (1.2-4.9) X10*3/uL [place] # (Auto) (0.1-1.2) X10*3/uL Eos # (Auto) (0.0-0.4) X10*3/uL Baso # (Auto) (0.0-0.2) X10*3/uL Abs Immat Gran (auto) (0.00-0.03) X10*3/uL Absolute Neuts (auto) (2.0-8.3) X10*3/uL Absolute Nucleated RBC (0.0-0.012) X10*3/uL Nucleated RBC % (auto) (0.0-0.2) /100WBC Sodium (135-145) mmol/L Potassium (3.3-5.1) mmol/l Chloride (96-108) mmol/L Carbon Dioxide (22-29) mmol/L Anion Gap (12-20) BUN (9-16) mg/dL Creatinine (0.5-1.4) mg/dL Estim Creat Clear Calc Estimated GFR POC Glucose (60-115) mg/dL Random Glucose (60-115) mg/dL Calcium (8.4-10.2) mg/dL Magnesium 1.8 (1.6-2.6) mg/dL Total Creatine Kinase (26-140) U/L Troponin I High Sens < 3.5 (<3.5-17.0) ng/L Imaging Data CT scan - head: Attestation: I personally reviewed and interpreted this imaging study as follows: Radiologist's impression: EXAMINATION: CT HEAD WITHOUT CONTRAST CT CERVICAL SPINE WITHOUT CONTRAST CLINICAL INFORMATION: Seizures. Head trauma. COMPARISON: CT head 06/28/2020. CT cervical spine 03/07/2020 TECHNIQUE: Imaging was performed from the skull base to vertex without intravenous administration of contrast. In addition, helical noncontrast CT imaging was acquired through the cervical spine and source images were reviewed along with axial reconstructions and sagittal and coronal MPRs. [This CT examination was performed using dose optimization techniques as appropriate, variously including the following: *Automated exposure control *Adjustment of mA and/or kV according to patient size (this includes techniques or standardized protocols for targeted exams where dose is matched to indication/reason for exam; i.e. extremities or head) *Use of iterative reconstruction technique] DLP: 1077 mGy-cm FINDINGS: HEAD: Status post left parietal craniotomy with surgical fixation plates and screws. There is focal encephalomalacia in the left parietal lobe adjacent to the craniotomy site. There is associated ex vacuo dilatation of the trigone the left lateral ventricle. These are chronic changes stable since prior studies. There is no acute abnormality. No acute intracranial hemorrhage. No mass effect. No extra-axial collections. Vasquez-white matter differentiation is maintained. The paranasal sinuses and mastoid air cells are well aerated. CERVICAL SPINE: There is no evidence of acute cervical spine fracture. Vertebral bodies remain normal in height. Cervical vertebrae have normal alignment. There is mild degenerative change of cervical spine. No prevertebral soft tissue swelling. There are surgical clips and calcifications adjacent to the left lobe of thyroid . Limited assessment of the lung apices is unremarkable. CT/CT head/brain wo con IMPRESSION: 1. No acute intracranial pathology. 2. No CT evidence of acute cervical spine fracture or traumatic subluxation ECG Data Attestation: I personally reviewed and interpreted this ECG as follows: ECG interpretation date: 09/28/20 ECG interpretation time: 19:49 Prior ECG tracings: available for review Interpretation: Vent. Rate : 073 BPM Atrial Rate : 073 BPM P-R Int : 166 ms QRS Dur : 078 ms QT Int : 386 ms P-R-T Axes : 073 065 071 degrees QTc Int : 425 ms Normal sinus rhythm Normal ECG When compared with ECG of 28-JUN-2020 20:49, No significant change was found Scores Heart Score History: -1- moderately suspicious ECG: -0- normal Age: -1- >45 - <65 Risk factory: -1- 1 or 2 risk factors Troponin: -0- < or = normal limit Score: 3 Risk: 1.7% Discharge Plan Discharge Clinical Impression: Epileptic seizure, Laceration of head, Acute hyponatremia Patient Disposition: Home, Self-Care Instructions: Hyponatremia (ED), Staple Care (ED), Head Laceration (ED) Additional Instructions: Se le evalu? silvestre ca?da con traumatismo craneoencef?cirilo despu?s de silvestre convulsi?n. Ten?as 2 laceraciones en la lopez que colocamos grapas 2. La laceraci?n en la parte superior de sotomayor lopez tiene 4 grapas, la laceraci?n a la parte posterior de la lopez tiene 6 grapas. Por favor, regrese en 10 d?as para retirar las grapas. Si nota alguna indicaci?n de infecci?n o hinchaz?n, connie que estas heridas se eval?en antes. El an?lisis de kane indica un nivel bajo de sodio. [place] podr?a deberse a que doyle medicamentos para las convulsiones. Le llenamos sodio con 2 L de soluci?n salina normal. Debe hacer un seguimiento con el m?dico de atenci?n primaria para silvestre evaluaci?n adicional. La tomograf?a computarizada de la lopez y el joselyn es negativa para los hallazgos agudos. Hemos actualizado sotomayor vacuna Tdap hoy. Lorin por elegir brandi departamento de emergencias para la evaluaci?n. Por favor, connie un seguimiento con el m?dico de atenci?n primaria seg?n sea necesario. Regrese al servicio de urgencias para cualquier s?ntoma nuevo, preocupante o que empeore. You were evaluated for a fall with head trauma after a seizure. You had 2 lacerations to your head which we placed jacquelyn 2. The laceration on the top of her head has 4 jacquelyn, the laceration to back of your head has 6 jacquelyn. Please return in 10 days to have the jacquelyn removed. If you notice any indication of infection or swelling please have these wounds evaluated sooner. Your blood work indicates a low sodium level. This could possibly be because her seizure medications. We did replete your sodium with 2 L of normal saline. You must follow-up with primary care physician for further evaluation. CT scan of head and neck are negative for acute findings. We updated her Tdap vaccine today. Thank you for choosing this emergency department for evaluation. Please follow-up with primary care physician as needed. Return to the emergency department for any new, concerning, or worsening symptoms. Prescriptions: No Action sucralfate 1 gram tablet 2 tab PO DAILY RF: 0 risperidone 2 mg tablet 1 tab PO BEDTIME RF: 0 dicyclomine 20 mg tablet 1 tab PO TID RF: 0 pantoprazole 40 mg tablet,delayed release (DR/EC) 1 tab PO DAILY RF: 0 phenobarbital 64.8 mg tablet 2 tab PO BEDTIME RF: 0 quetiapine 50 mg tablet 1 tab PO BEDTIME RF: 0 clobazam 20 mg tablet 1 tab PO BID RF: 0 Aptiom 400 mg tablet 3 tab PO DAILY RF: 0 Xcopri 200 mg tablet 1 tab PO DAILY RF: 0 Interventions: ED Discharge Assessment Last Done: 09/28/20 21:50 Discharge Date/Time: 09/28/20 21:52
[2020-09-28 18:09] LABS: Glucose, Whole Blood 88 mg/dL (60-115)
[2020-09-28] MEDS: 0.9 % Sodium Chloride 1,000 ML 999 ML IVCONT ×2 (18:31→20:12)
[2020-09-28 18:47] LABS: Basophils Absolute Auto 0.1 X10*3/uL (0.0-0.2); Eosinophils Absolute Auto 0.1 X10*3/uL (0.0-0.4); Eosinophils Percent Auto 1.8 % (0-4); Hematocrit 36.6 % (37-47); Hemoglobin 12.2 g/dl (12.0-16.0); Imm Gran Abs Auto 0.01 X10*3/uL (0.00-0.03); Imm Gran Pct Auto 0.2 % (0.0-0.4); Lymphocytes Absolute Auto 1.1 X10*3/uL (1.2-4.9); Lymphocytes Percent Auto 22.8 % (20-40); MANUAL DIFF FLAG NO; Mean Corpuscular HGB Conc 33.3 g/dl (31.0-35.0); Mean Corpuscular Hemoglobin 29.6 pg (27.0-33.0); Mean Corpuscular Volume 88.8 fL (80-98); Mean Platelet Volume 9.6 fL (9.4-12.3); Monocytes Absolute Auto 0.5 X10*3/uL (0.1-1.2); Monocytes Percent Auto 10.6 % (2-11); Neutrophils Absolute Auto 3.1 X10*3/uL (2.0-8.3); Neutrophils Percent Auto 63.6 % (45-73); Platelet Count 206 X10*3/uL (160-400); Red Blood Count 4.12 X10*6/uL (4.20-5.50); Red Cell Distribution Width 13.6 % (11.0-16.0); White Blood Count 4.9 X10*3/uL (4.8-10.8)
[2020-09-28 19:25] LABS: Magnesium 1.8 mg/dL (1.6-2.6)
[2020-09-28 19:26] LABS: Anion Gap 14 (12-20); Blood Urea Nitrogen 16 mg/dL (9-16); Calcium 8.6 mg/dL (8.4-10.2); Carbon Dioxide 26 mmol/L (22-29); Chloride 95 mmol/L (96-108); Creatinine Clr Calc Pharmacy 93.8; Estimated Glomerular Filt Rate > 60; Glucose Random 86 mg/dL (60-115); Potassium 5.1 mmol/l (3.3-5.1); Sodium 130 mmol/L (135-145)
[2020-09-28 19:30] LABS: Troponin-I High Sensitivity < 3.5 ng/L (<3.5-17.0)
== END 2020-09-28 21:52 | disposition home or self-care (01) ==
PROVIDERS: Nurse Practitioner Family; Emergency Provider Emergency Medicine
DX: G40.909 Epilepsy, unspecified, not intractable, without status epilepticus (principal); S01.01XA Laceration without foreign body of scalp, initial encounter; W18.39XA Other fall on same level, initial encounter; Y93.9 Activity, unspecified; Y92.013 Bedroom of single-family (private) house as the place of occurrence of the external cause; Y99.9 Unspecified external cause status
CPT/HCPCS: 12032; 36415; 70450; 72125; 80048; 82550; 82947; 83735; 84484; 85025; 90471; 90715; 93005; 96361; 96374; 99284

== ENCOUNTER 2020-11-16 11:21 | Emergency (ER) | payer MEDICARE, MEDICAID, SELFPAY ==
--- NOTE | ~2020-11-16 | XR_ITS ---
EXAMINATION: XR WRIST, RIGHT CLINICAL INFORMATION: Right wrist pain. COMPARISON: 03/19/2015 right wrist radiographs. TECHNIQUE: PA, lateral, and oblique views of the right wrist. FINDINGS: There is no acute fracture or dislocation. The carpal bones are normally aligned. The distal radius and ulna are intact. There is mild soft tissue swelling. XR/XR wrist RT min 3V IMPRESSION: Mild soft tissue swelling. No acute underlying abnormality.
--- NOTE | ~2020-11-16 | CT_ITS ---
EXAMINATION: CT HEAD WITHOUT CONTRAST CT CERVICAL SPINE WITHOUT CONTRAST CLINICAL INFORMATION: Seizure. Fall. Head injury. COMPARISON: CT head, CT cervical spine 09/28/2020 TECHNIQUE: Imaging was performed from the skull base to vertex without intravenous administration of contrast. In addition, helical noncontrast CT imaging was acquired through the cervical spine and source images were reviewed along with axial reconstructions and sagittal and coronal MPRs. [This CT examination was performed using dose optimization techniques as appropriate, variously including the following: *Automated exposure control *Adjustment of mA and/or kV according to patient size (this includes techniques or standardized protocols for targeted exams where dose is matched to indication/reason for exam; i.e. extremities or head) *Use of iterative reconstruction technique] DLP: 1183 mGy-cm FINDINGS: CT HEAD: Status post left parietal craniotomy with surgical fixation plates and screws. There is focal encephalomalacia in the left parietal lobe adjacent to the craniotomy site. There is associated ex vacuo dilatation of the trigone the left lateral ventricle. These are chronic changes stable since prior studies. There is no acute abnormality. No acute intracranial hemorrhage. No mass effect. No extra-axial collections. Vasquez-white matter differentiation is maintained. The paranasal sinuses and mastoid air cells are well aerated. CERVICAL SPINE: There is no evidence of acute cervical spine fracture. Vertebral bodies remain normal in height. Cervical vertebrae have normal alignment. There is mild degenerative change of cervical spine. No prevertebral soft tissue swelling. There are surgical clips and calcifications adjacent to the left lobe of thyroid . Limited assessment of the lung apices is unremarkable. CT/CT cervical spine wo con IMPRESSION: 1. No acute intracranial pathology. 2. No CT evidence of acute cervical spine fracture or traumatic subluxation
--- NOTE | ~2020-11-16 | XR_ITS ---
EXAMINATION: XR ELBOW, RIGHT XR HUMERUS, RIGHT CLINICAL INFORMATION: Fall with pain. COMPARISON: Right wrist radiographs 03/19/2015. TECHNIQUE: 2 views right elbow, 2 views right humerus. FINDINGS: There is a minimally comminuted transverse fracture of the humeral neck with some mild impaction. No significant angulation is seen. Again seen is a chronic fracture involving the right posterolateral 4th rib. Imaging of the elbow is limited, presumably due to patient mobility issues. Would recommend repeat radiographs with AP and lateral elbow films. If this cannot be performed, and an elbow fracture is suspected, CT would be useful. XR/XR elbow RT 2V IMPRESSION: 1. Acute right humeral fracture. 2. Extremely limited evaluation of the right elbow but a definite fracture is not seen.
--- NOTE | ~2020-11-16 | XR_ITS ---
EXAMINATION: XR ELBOW, RIGHT XR HUMERUS, RIGHT CLINICAL INFORMATION: Fall with pain. COMPARISON: Right wrist radiographs 03/19/2015. TECHNIQUE: 2 views right elbow, 2 views right humerus. FINDINGS: There is a minimally comminuted transverse fracture of the humeral neck with some mild impaction. No significant angulation is seen. Again seen is a chronic fracture involving the right posterolateral 4th rib. Imaging of the elbow is limited, presumably due to patient mobility issues. Would recommend repeat radiographs with AP and lateral elbow films. If this cannot be performed, and an elbow fracture is suspected, CT would be useful. XR/XR humerus RT IMPRESSION: 1. Acute right humeral fracture. 2. Extremely limited evaluation of the right elbow but a definite fracture is not seen.
[2020-11-16 13:49] VITALS: BP 104/63; PULSE 72; RESP 18; TEMP 36.8; O2SAT 100; BMI 30.9
[2020-11-16 20:00] VITALS: RESP 18
--- NOTE | 2020-11-16 20:21 | ED_ITS ---
HPI - Seizure General Chief Complaint: Fall Stated Complaint: right arm break - send by Jump[employer] Time Seen by Provider: 11/16/20 19:50 Source: patient and animal attendants and trainers Mode of arrival: ambulatory Limitations: no limitations History of Present Illness HPI Narrative: 54-year-old female with known history of seizure and hyponatremia, patient presented after having seizure today results in falling in the bathroom hurting her right shoulder, patient was seen at Urgent Care before coming to the emergency department and was diagnosed with humerus fracture on right side, patient was advised to come to the emergency room for further evaluation. Patient is somewhat poor historian our animal attendants and trainers who is very familiar with the patient from previous ED visit reported that that is her baseline. Seizure History: Yes Related Data Home Medications Medication Instructions Recorded Confirmed cenobamate [Xcopri] 1 tab PO DAILY 09/28/20 11/04/20 clobazam 1 tab PO BID 09/28/20 11/04/20 dicyclomine 1 tab PO TID 09/28/20 11/04/20 pantoprazole 1 tab PO DAILY 09/28/20 11/04/20 phenobarbital 2 tab PO BEDTIME 09/28/20 11/04/20 eslicarbazepine 600 mg tablet 600 mg PO BID tab 11/04/20 11/04/20 risperidone 1 mg tablet 1 mg PO BEDTIME 11/04/20 11/04/20 Previous Rx's Medication Instructions Recorded sucralfate 1 gram tablet 2 g PO DAILY 90 Days #180 tab 09/29/20 Allergies Allergy/AdvReac Type Severity Reaction Status Date / Time Iodinated Contrast Media Allergy Intermediate RED ALL Verified 11/16/20 13:49 [IV Dye, Iodine Containing] OVER NAUSEA AND LOST RESPIRATIONS Penicillins [PENICILLINS] Allergy Unknown UNKNOWN Verified 11/16/20 13:49 REACTION phenytoin [From Dilantin] Allergy Unknown Unknown Verified 11/16/20 13:49 Review of Systems Review of Systems: All other systems are reviewed and are negative Constitutional: Reports as per HPI and Reports no additional constitutional complaints Eyes: Reports as per HPI and Reports no additional eye complaints Reports system reviewed and no additional complaints, except as documented Cardiovascular: Reports as per HPI and Reports no additional cardiovascular complaints Respiratory: Reports as per HPI and Reports no additional respiratory complaints Gastrointestinal: Reports as per HPI and Reports no additional gastrointestinal complaints Genitourinary: Reports no additional female genitourinary complaints Musculoskeletal: Reports no additional musculoskeletal complaints Skin/Breast: Reports system reviewed and no additional complaints, except as docu Psychiatric: Reports no additional psychiatric complaints Endocrine: Reports no additional endocrine complaints Hematologic/Lymphatic: Reports no additional hematologic/lymphatic complaints Allergic/Immunologic: Reports no additional allergic/immunologic complaints Reports system reviewed and no additional complaints, except as documented and Reports Abnormal speech present PMFSH Past Medical History Medical History Encephalomalacia Expressive aphasia Hyponatremia Hypotension Seizures Unsteady gait Surgical History H/O prior ablation treatment History of section History of skin graft History of tubal ligation History of tumor Surgical history unknown Family History Family History Father Heart problem Mother Diabetes Low blood pressure Social History Social History Alcohol intake: never Smoking Status: Never smoker Advance Directives: No Advance Directives Information Provided: No Physical Exam Vital Signs: Vital Signs: Last Vital Signs Temp 98.2 F 11/16/20 13:49 Pulse 72 11/16/20 13:49 Resp 18 11/16/20 13:49 BP 104/63 11/16/20 13:49 Pulse Ox 100 11/16/20 13:49 Body Mass Index 30.9 Vital signs have been reviewed as appeared to be correct. Blood pressure normal. Heart rate normal. Respiration rate normal. Temperature normal. Oxygen saturation normal. Appearance: Alert. Oriented X3. No acute distress. Head: Normal external exam. Normocephalic. Left frontal small hematoma was tender to touch, no step-off, no deformity. No Cortes signs noted. No raccoon eyes noted Eyes: PERRLA. EOMI. Conjunctiva and sclera normal. Eyelids normal. ENT: TM's Normal. Pharynx normal. Uvula midline. Moist mucous membranes. No trismus noted. No drooling noted. No muffled voice noted. Neck: Normal inspection. Neck supple. FROM. No adenopathy. Thyroid Normal. No meningeal signs. No neck mass noted. CVS: Normal heart rate and rhythm. Heart sound normal. No murmurs noted. Pulses normal throughout. Respiratory: No respiratory distress. Painless inspiration. Breath sounds normal. No wheezes/rales/rhonchi noted. Chest nontender. No accessory muscle usage noted or decreased air movement noted. Abdomen: Soft and nontender. Bowel sounds normal in all 4 quadrants. No distention noted. No organomegaly noted. No visible injury noted. Back: No CVA tenderness. Full range of motion noted. Skin: Skin warm and dry. Normal skin color. Normal skin turgor. No rashes/lesions/lacerations noted. Extremities: Tenderness over right shoulder, ecchymosis over proximal right arm, limited range of motion due to pain. Neurovascularly intact. Neuro: Oriented X 3. No motor deficit. No sensory deficit. GCS 15 Course Course Course Narrative: 54-year-old female with history of seizure, patient had seizure yesterday fell in the bathroom causing right humeral fracture. Otherwise negative CT was GCS of 15, patient with chronic mild hyponatremia. Otherwise unremarkable labs. Continue sling right upper extremities and will refer to outpatient orthopedic clinic to follow-up with the fracture. MDM - Seizure Lab Data Attestation: I reviewed the patient's lab results. Result diagrams: 11/16/20 21:25 11/16/20 21:25 Labs: Lab Results 11/16/20 11/16/20 Range/Units 21:25 21:25 WBC 5.4 (4.8-10.8) X10*3/uL RBC 3.62 L (4.20-5.50) X10*6/uL Hgb 11.1 L (12.0-16.0) g/dl Hct 32.8 L (37-47) % MCV 90.6 (80-98) fL MCH 30.7 (27.0-33.0) pg MCHC 33.8 (31.0-35.0) g/dl RDW 15.8 (11.0-16.0) % Plt Count 239 (160-400) X10*3/uL MPV 9.3 L (9.4-12.3) fL Immature Gran % (Auto) 0.2 (0.0-0.4) % Neut % (Auto) 52.1 (45-73) % Lymph % (Auto) 28.9 (20-40) % [place] % (Auto) 17.0 H (2-11) % Eos % (Auto) 1.1 (0-4) % Baso % (Auto) 0.7 (0-2) % Lymph # (Auto) 1.6 (1.2-4.9) X10*3/uL [place] # (Auto) 0.9 (0.1-1.2) X10*3/uL Eos # (Auto) 0.1 (0.0-0.4) X10*3/uL Baso # (Auto) 0.0 (0.0-0.2) X10*3/uL Abs Immat Gran (auto) 0.01 (0.00-0.03) X10*3/uL Absolute Neuts (auto) 2.8 (2.0-8.3) X10*3/uL Absolute Nucleated RBC 0.000 (0.0-0.012) X10*3/uL Nucleated RBC % (auto) 0.0 (0.0-0.2) /100WBC Sodium 130 L (135-145) mmol/L Potassium 4.6 (3.3-5.1) mmol/L Chloride 98 (96-108) mmol/L Carbon Dioxide 21 L (22-29) mmol/L Anion Gap 16 (12-20) BUN 10 (9-16) mg/dL Creatinine 0.60 (0.5-1.4) mg/dL Estim Creat Clear Calc 109.4 Estimated GFR > 60 Random Glucose 87 (60-115) mg/dL Calcium 8.5 (8.4-10.2) mg/dL Imaging Data Right wrist x-ray.: Radiologist's impression: Mild soft tissue swelling. No acute underlying abnormality. CT scan - head: Radiologist's impression: No acute intracranial pathology. Cervical spine CT.: Radiologist's impression: No CT evidence of acute cervical spine fracture or traumatic subluxation. Right upper extremity x-ray.: Radiologist's impression: There is a minimally comminuted transverse fracture of the humeral neck with some mild impaction. No significant angulation is seen. Again seen is a chronic fracture involving the right posterolateral 4th rib. Imaging of the elbow is limited, presumably due to patient mobility issues. Would recommend repeat radiographs with AP and lateral elbow films. If this cannot be performed, and an elbow fracture is suspected, CT would be useful. Discharge Plan Discharge Prescriptions: No Action sucralfate 1 gram tablet 2 g PO DAILY 90 Days Qty: 180 RF: 0 dicyclomine 20 mg tablet 1 tab PO TID RF: 0 pantoprazole 40 mg tablet,delayed release (DR/EC) 1 tab PO DAILY RF: 0 phenobarbital 64.8 mg tablet 2 tab PO BEDTIME RF: 0 clobazam 20 mg tablet 1 tab PO BID RF: 0 Xcopri 200 mg tablet 1 tab PO DAILY RF: 0 Aptiom 600 mg tablet 600 mg PO BID RF: 0 risperidone 1 mg tablet 1 mg PO BEDTIME RF: 0
--- NOTE | 2020-11-16 21:18 | PC.NURSE ---
Rn and tech tried x 2 to draw venous blood samples for Lab order , octavia called to ED
[2020-11-16 21:30] LABS: MANUAL DIFF FLAG NO
[2020-11-16 21:31] LABS: Basophils Percent Auto 0.7 % (0-2); Eosinophils Absolute Auto 0.1 X10*3/uL (0.0-0.4); Eosinophils Percent Auto 1.1 % (0-4); Hematocrit 32.8 % (37-47); Hemoglobin 11.1 g/dl (12.0-16.0); Imm Gran Abs Auto 0.01 X10*3/uL (0.00-0.03); Imm Gran Pct Auto 0.2 % (0.0-0.4); Lymphocytes Absolute Auto 1.6 X10*3/uL (1.2-4.9); Lymphocytes Percent Auto 28.9 % (20-40); Mean Corpuscular HGB Conc 33.8 g/dl (31.0-35.0); Mean Corpuscular Hemoglobin 30.7 pg (27.0-33.0); Mean Corpuscular Volume 90.6 fL (80-98); Mean Platelet Volume 9.3 fL (9.4-12.3); Monocytes Absolute Auto 0.9 X10*3/uL (0.1-1.2); Neutrophils Absolute Auto 2.8 X10*3/uL (2.0-8.3); Neutrophils Percent Auto 52.1 % (45-73); Platelet Count 239 X10*3/uL (160-400); Red Blood Count 3.62 X10*6/uL (4.20-5.50); Red Cell Distribution Width 15.8 % (11.0-16.0); White Blood Count 5.4 X10*3/uL (4.8-10.8)
[2020-11-16 21:58] LABS: Anion Gap 16 (12-20); Blood Urea Nitrogen 10 mg/dL (9-16); Calcium 8.5 mg/dL (8.4-10.2); Carbon Dioxide 21 mmol/L (22-29); Chloride 98 mmol/L (96-108); Creatinine Clr Calc Pharmacy 109.4; Estimated Glomerular Filt Rate > 60; Glucose Random 87 mg/dL (60-115); Potassium 4.6 mmol/L (3.3-5.1); Sodium 130 mmol/L (135-145)
[2020-11-16 23:32] VITALS: BP 97/55; PULSE 80; RESP 18; O2SAT 99
[2020-11-16 23:41] VITALS: BP 104/56; PULSE 69; RESP 16; TEMP 36.7; O2SAT 100
--- NOTE | 2020-11-17 00:11 | PC.NURSE ---
4x attempted to contact daughter. flora is d/c. unable to reach her.
--- NOTE | 2020-11-17 00:21 | PC.NURSE ---
contact made to daughter. timothy will come pickling operator patient.
== END 2020-11-17 00:30 | disposition home or self-care (01) ==
PROVIDERS: Emergency Provider Emergency Medicine; PCP Internal Medicine
DX: R56.9 Unspecified convulsions (principal); S42.214A Unspecified nondisplaced fracture of surgical neck of right humerus, initial encounter for closed fracture; W01.0XXA Fall on same level from slipping, tripping and stumbling without subsequent striking against object, initial encounter; R26.81 Unsteadiness on feet; E87.1 Hypo-osmolality and hyponatremia; Y93.9 Activity, unspecified; Y92.012 Bathroom of single-family (private) house as the place of occurrence of the external cause; Y99.9 Unspecified external cause status
CPT/HCPCS: 36415; 70450; 72125; 73060; 73070; 73110; 80048; 85025; 99284

== ENCOUNTER → 2020-11-17 10:16 | Outpatient (BNVA) | payer MEDICARE, MEDICAID, SELFPAY | PROVIDERS: Visit Provider Physician Assistant | DX: S42.213A Unspecified displaced fracture of surgical neck of unspecified humerus, initial encounter for closed fracture (principal) | CPT/HCPCS: 99202 ==

== ENCOUNTER 2020-12-01 08:51 | Outpatient (RCR) | payer MEDICARE, MEDICAID, SELFPAY | END 2021-10-10 15:04 | disposition home or self-care (01) | LOC: HO.SH 08:51 | PROVIDERS: Visit Provider Internal Medicine | DX: R47.01 Aphasia (principal) | CPT/HCPCS: 92523 ==

== ENCOUNTER 2020-12-07 08:55 | Outpatient (REF) | payer MEDICARE, MEDICAID, SELFPAY ==
--- NOTE | 2020-12-07 09:08 | ECG_ITS ---
Test Reason : Z01.818 Blood Pressure : / mmHG Vent. Rate : 078 BPM Atrial Rate : 078 BPM P-R Int : 162 ms QRS Dur : 076 ms QT Int : 366 ms P-R-T Axes : 053 051 058 degrees QTc Int : 417 ms Normal sinus rhythm Normal ECG When compared with ECG of 28-SEP-2020 19:49, No significant change was found Referred By: Lara Rivas Electronically Signed By:HUGO RODRIGUEZ MD
[2020-12-07 09:46] LABS: MANUAL DIFF FLAG NO
[2020-12-07 09:54] LABS: Eosinophils Absolute Auto 0.3 X10*3/uL (0.0-0.4); Eosinophils Percent Auto 6.1 % (0-4); Hematocrit 33.1 % (37-47); Hemoglobin 10.6 g/dl (12.0-16.0); Imm Gran Abs Auto 0.04 X10*3/uL (0.00-0.03); Lymphocytes Absolute Auto 1.4 X10*3/uL (1.2-4.9); Lymphocytes Percent Auto 33.2 % (20-40); Mean Corpuscular Hemoglobin 30.6 pg (27.0-33.0); Mean Corpuscular Volume 95.7 fL (80-98); Mean Platelet Volume 9.6 fL (9.4-12.3); Monocytes Absolute Auto 0.5 X10*3/uL (0.1-1.2); Monocytes Percent Auto 13.3 % (2-11); Neutrophils Absolute Auto 1.9 X10*3/uL (2.0-8.3); Neutrophils Percent Auto 45.4 % (45-73); Platelet Count 259 X10*3/uL (160-400); Red Blood Count 3.46 X10*6/uL (4.20-5.50); Red Cell Distribution Width 15.4 % (11.0-16.0); White Blood Count 4.1 X10*3/uL (4.8-10.8)
[2020-12-07 10:15] LABS: Prothrombin Time 12.3 SEC (10.8-13.0)
[2020-12-07 11:19] LABS: Alanine Aminotransferase 42 U/L (0-31); Albumin Level 3.7 g/dL (3.5-5.0); Alkaline Phosphatase 122 U/L (39-117); Anion Gap 11 (12-20); Aspartate Amino Transferase 23 U/L (5-31); Bilirubin Total 0.4 mg/dL (0.0-1.0); Blood Urea Nitrogen 25 mg/dL (9-16); Calcium 8.9 mg/dL (8.4-10.2); Carbon Dioxide 29 mmol/L (22-29); Chloride 104 mmol/L (96-108); Estimated Glomerular Filt Rate > 60; Glucose Fasting 70 mg/dL (60-99); Potassium 4.3 mmol/L (3.3-5.1); Sodium 140 mmol/L (135-145); Total Protein 6.9 g/dL (6.5-8.0)
[2020-12-11 08:41] LABS: Vitamin D 25-OH, D2 <4 ng/mL; Vitamin D 25-OH, D3 31 ng/mL; Vitamin D 25-OH, Total 31 ng/mL (30-100)
== END 2020-12-07 08:56 | disposition home or self-care (01) ==
LOC: HO.LAB 08:55
PROVIDERS: PCP Internal Medicine; Visit Provider Internal Medicine
DX: Z01.818 Encounter for other preprocedural examination (principal); E55.9 Vitamin D deficiency, unspecified
CPT/HCPCS: 36415; 80053; 82306; 85025; 85610; 85730; 93005

== ENCOUNTER 2020-12-13 08:00 | Outpatient (RCR) | payer MEDICARE, MEDICAID, SELFPAY ==
[2020-11-22 08:16] VITALS: BP 100/70; O2SAT 97
--- NOTE | 2020-12-02 16:54 | MHC.PT.EP ---
[facility] [place] [facility] [place] [facility] [place] [facility] [address] Phoebe Feliciano [address] [phone] F: [phone] F: [phone] F: [phone] F: [phone] Physical Therapy Plan of Care Date of Evaluation: 11/29/20 Date of Surgery: Diagnosis: Unsteadiness on her feet. Assessment: Pt is a 54 y/o female referred to PT for unsteadiness on her feet resulting in falls in the home, decreased ability and tolerance for standing and walking secondary to decreased LE functional strength, decreased LE posture, gait abnormality, as well as complications d/t early onset dementia. Pt attends her therapy evaluation with her DTR who is her caregiver and will be responsible for her carryover in the home. NOTE: Pt fractured her R humerus in a subsequent fall after she had been seen for her initial fall and referral to PT. Therapy awaiting and special instructions in light of this status change from her last MD visit. Frequency and Duration: The patient will be seen 2 x/ wk x 5 wks. Short Term Goals: In 2 weeks: initiate HEP with evidence of compliance. Elevator Erector Helper Goals: In 5 weeks: care providers I with home exercise program. In 5 weeks: Pt will be able to walk 200 ft in clinic w/o path sway. initial: unable. Treatment Plan: Modalities to reduce pain, spasms and effusion. Manual therapy to restore motion and function. Therapeutic exercise to improve strength and flexibility. Neuromuscular re-education for posture and balance. Therapeutic activities to return to functional activities of daily living. Electronically signed by: Jose Hines PT. Please sign and return to therapist. Thank you for your referral.
--- NOTE | 2021-01-03 09:09 | MHC.PT.DC ---
[facility] [place] Office [place] Office [place] Office [address] Phoebe Feliciano [address] [phone] F: [phone] F: [phone] F: [phone] F: [phone] Physical Therapy Discharge Report Diagnosis: Unsteadiness on her feet. Date of Surgery: Date of Evaluation: 11/22/20 Date of Discharge: Treatments to Date: 3 Cancellations to Date: 0 No Shows to Date: 0 Discharge Status: Independent with HEP Discharge Summary: Nanci is DC'd today as she presents for evaluation for R shoulder fracture. Pt and caregivers I with basic LE strengthening exercises. Electronically signed by: Jose Hines PT. Please sign and return to therapist. Thank you for your referral.
== END 2021-01-03 09:10 | disposition home or self-care (01) ==
LOC: HO.PTCHIC 08:00
PROVIDERS: PCP Internal Medicine; Visit Provider Internal Medicine
DX: R26.81 Unsteadiness on feet (principal)
CPT/HCPCS: 97110; 97112; 97162

== ENCOUNTER 2020-12-21 16:48 | Outpatient (REF) | payer MEDICARE, MEDICAID, SELFPAY | END 2020-12-21 16:49 | disposition home or self-care (01) | LOC: HO.HOSX 16:48 | PROVIDERS: Visit Provider Orthopaedic Surgery | DX: Z13.89 Encounter for screening for other disorder (principal) ==

== ENCOUNTER 2020-12-22 08:34 | Outpatient (REF) | payer MEDICARE, MEDICAID, SELFPAY ==
--- NOTE | ~2020-12-22 | XR_ITS ---
EXAMINATION: XR SHOULDER, RIGHT: 2 VIEWS CLINICAL INFORMATION: Follow-up fracture COMPARISON: 11/16/2020 FINDINGS / IMPRESSION There is a fracture of the surgical neck of the proximal right humerus, comminuted with slight medial displacement of the humeral diaphysis, and impaction medially. There is surrounding callus formation. Inferior subluxation of the right humeral head with respect to the glenoid may reflect a joint effusion.
== END 2020-12-22 08:35 | disposition home or self-care (01) ==
LOC: HO.HOSX 08:34
PROVIDERS: Visit Provider Orthopaedic Surgery
DX: S42.214D Unspecified nondisplaced fracture of surgical neck of right humerus, subsequent encounter for fracture with routine healing (principal)
CPT/HCPCS: 73030; 99212

== ENCOUNTER 2021-01-16 14:32 | Emergency (ER) | payer MEDICARE, MEDICAID, SELFPAY ==
--- NOTE | ~2021-01-16 | XR_ITS ---
EXAMINATION: XR HUMERUS, RIGHT XR FOREARM, RIGHT CLINICAL INFORMATION: Fall. Pain. COMPARISON: 12/22/2020 TECHNIQUE: AP and lateral views of the right humerus and of the right forearm. FINDINGS: Humerus: Again seen is a healing oblique/transverse fracture of the right proximal humeral shaft with bone formation at the margins of the fracture site primarily osseous bridging is possible. Lateral view is limited by the overlying chest. Disuse osteopenia is noted. Alignment is unchanged from prior. No new fractures. Acromioclavicular and glenohumeral joints are normal. Mild soft tissue swelling. Right forearm: Bones are osteopenic. No acute fracture or malalignment. Elbow joint appears appropriately aligned. Sensitivity for a elbow joint effusion is limited. No fractures are identified in this region. The wrist is not well assessed on these images due to the obliquity. Mild soft tissue swelling in the distal forearm. XR/XR humerus RT IMPRESSION: 1. Healing fracture of the right proximal humerus without sniffing change in alignment. 2. No acute fractures are identified in the remainder of the right humerus and at the right forearm. 3. Osteopenia.
--- NOTE | ~2021-01-16 | CT_ITS ---
EXAMINATION: CT CERVICAL SPINE WITHOUT CONTRAST CLINICAL INFORMATION: Fall. Pain. COMPARISON: 11/16/2020 TECHNIQUE: Multidetector volumetric imaging was obtained through the cervical spine without contrast material. Multiplanar reformatted images in coronal and sagittal orientations were submitted. This CT examination was performed using dose optimization techniques as appropriate, variously including the following: *Automated exposure control *Adjustment of mA and/or kV according to patient size (this includes techniques or standardized protocols for targeted exams where dose is matched to indication/reason for exam; i.e. extremities or head) *Use of iterative reconstruction technique DLP: 385.95 mGy-cm FINDINGS: Vertebral body heights are normal. No fractures of the vertebral bodies or posterior elements. Reversal of the normal cervical lordosis is likely positional or degenerative. No vertebral body or posterior element subluxation. The craniocervical and atlantoaxial articulations are normal. There is mild degenerative disc disease in the lower cervical spine from C4-C5 through C6-C7, characterized by mild loss of vertebral disc height and prominent endplate osteophytes. Facet joints appear relatively well-preserved. Central canal and neural foramina appear patent without appreciable stenoses. No significant paravertebral soft tissue swelling. A vagal nerve stimulator device is evident on the left. Multiple surgical clips are present in this region. Imaged portions of the lung apices are clear. CT/CT cervical spine wo con IMPRESSION: No acute fracture or acute malalignment in the cervical spine. Mild degenerative disc disease in the cervical spine. Reversal of normal cervical lordosis is unchanged from prior studies and likely due to the mild degenerative spondylosis in this region. This can also be positional. Muscle spasm is less likely.
--- NOTE | ~2021-01-16 | XR_ITS ---
EXAMINATION: XR LUMBOSACRAL SPINE CLINICAL INFORMATION: fall, pain COMPARISON: CT abdomen pelvis dated 09/10/2018 TECHNIQUE: AP and lateral views of the lumbar spine and lateral view of the lumbosacral junction. FINDINGS: Bones are osteopenic. No fracture or malalignment. Vertebral body and intervertebral disc edge appear well-preserved. No significant degenerative disc disease. Soft tissues are unremarkable. Imaged portions of the SI joints are normal. XR/XR lumbar spine 2-3V IMPRESSION: Unremarkable lumbar spine radiographs. No acute osseous findings or significant degenerative spondylosis.
--- NOTE | ~2021-01-16 | XR_ITS ---
EXAMINATION: CHEST 2 VIEWS CLINICAL INFORMATION: Pain after fall. COMPARISON: October 31, 2019. TECHNIQUE: PA and lateral views of the chest were obtained. FINDINGS: The cardiac silhouette is not enlarged. The mediastinal and hilar contours are unremarkable. There are no pneumothoraces. There is a small left pleural effusion with associated airspace disease. Partially visualized is the incompletely healing/healed fracture to the proximal right humerus. The osseous structures are otherwise unremarkable. XR/XR chest 2V IMPRESSION: Small left pleural effusion with associated airspace disease. Partially visualized is the incompletely healing/healed fracture to the proximal right humerus. Please refer to the subsequent right humerus study for further evaluation.
--- NOTE | ~2021-01-16 | XR_ITS ---
EXAMINATION: XR HUMERUS, RIGHT XR FOREARM, RIGHT CLINICAL INFORMATION: Fall. Pain. COMPARISON: 12/22/2020 TECHNIQUE: AP and lateral views of the right humerus and of the right forearm. FINDINGS: Humerus: Again seen is a healing oblique/transverse fracture of the right proximal humeral shaft with bone formation at the margins of the fracture site primarily osseous bridging is possible. Lateral view is limited by the overlying chest. Disuse osteopenia is noted. Alignment is unchanged from prior. No new fractures. Acromioclavicular and glenohumeral joints are normal. Mild soft tissue swelling. Right forearm: Bones are osteopenic. No acute fracture or malalignment. Elbow joint appears appropriately aligned. Sensitivity for a elbow joint effusion is limited. No fractures are identified in this region. The wrist is not well assessed on these images due to the obliquity. Mild soft tissue swelling in the distal forearm. XR/XR forearm RT 2V IMPRESSION: 1. Healing fracture of the right proximal humerus without sniffing change in alignment. 2. No acute fractures are identified in the remainder of the right humerus and at the right forearm. 3. Osteopenia.
--- NOTE | ~2021-01-16 | CT_ITS ---
EXAMINATION: CT HEAD WITHOUT CONTRAST CLINICAL INFORMATION: fall, pain COMPARISON: 11/16/2020 TECHNIQUE: Contiguous axial imaging was performed from the skull base to vertex without intravenous administration of contrast. This CT examination was performed using dose optimization techniques as appropriate, variously including the following: *Automated exposure control *Adjustment of mA and/or kV according to patient size (this includes techniques or standardized protocols for targeted exams where dose is matched to indication/reason for exam; i.e. extremities or head) *Use of iterative reconstruction technique DLP: 866.32 mGy-cm FINDINGS: Focal encephalomalacia is again seen within the left posterior parietal lobe underlying a prior craniotomy site. No new abnormalities are identified in this region. Mild exit dilatation of the adjacent occipital horn of the left lateral ventricle is unchanged. Ventricles are otherwise normal in size. No additional abnormal attenuation is identified in the brain parenchyma. There is no evidence of acute intracranial hemorrhage or territorial infarction. No abnormal mass effect or midline shift is seen. Vasquez to white matter differentiation is well preserved. No extra-axial fluid collections are identified. Hyperostosis condyle cisterna is noted. No acute osseous abnormalities. Skull base is unremarkable. Normal soft tissues. The mastoid air cells and visualized portions of the paranasal sinuses are well aerated. CT/CT head/brain wo con IMPRESSION: No acute intracranial pathology. Unchanged encephalomalacia in the left posterior parietal lobe with chronic changes of an overlying craniotomy
[2021-01-16 14:36] VITALS: BP 108/74; PULSE 76; O2SAT 98
[2021-01-16 14:38] VITALS: BP 90/53; PULSE 72; RESP 18; TEMP 37.3; O2SAT 95; BMI 34.7
--- NOTE | 2021-01-16 14:53 | ED_ITS ---
HPI - Fall General Chief Complaint: Fall Stated Complaint: pain from fall x2 days Time Seen by Provider: 01/16/21 14:50 Source: patient, EMS and coil cutter Mode of arrival: EMS Limitations: no limitations and language barrier History of Present Illness HPI Narrative: 55-year-old female with a past medical history of seizure disorder with VNS, GERD here with complaints of pain to the right upper extremity, neck, back, right chest after a fall which occurred on Sunday. Patient tells me she was getting out of her bed and her foot slipped causing her to fall landing on the right side. She did hit her head. There was no loss of consciousness. She denies any seizure activity at that time. She denies any chest or abdominal pain. She has a known right humeral fracture that is being followed by Orthopedics. MD complaint: fall Related Data Home Medications Medication Instructions Recorded Confirmed cenobamate [Xcopri] 1 tab PO DAILY 09/28/20 12/07/20 clobazam 1 tab PO BID 09/28/20 12/07/20 dicyclomine 1 tab PO TID 09/28/20 12/07/20 pantoprazole 1 tab PO DAILY 09/28/20 12/07/20 phenobarbital 2 tab PO BEDTIME 09/28/20 12/07/20 eslicarbazepine 600 mg tablet 600 mg PO BID tab 11/04/20 12/07/20 risperidone 1 mg tablet 1 mg PO BEDTIME 11/04/20 12/07/20 Previous Rx's Medication Instructions Recorded sucralfate 1 gram tablet 2 g PO DAILY 90 Days #180 tab 09/29/20 tramadol 50 mg tablet 50 mg PO BID 7 Days #14 tab 11/17/20 cyclobenzaprine 10 mg tablet 10 mg PO BEDTIME PRN 30 Days #30 11/24/20 tab diaper,brief,adult,disposable #10 ea 11/24/20 ibuprofen 800 mg tablet 800 mg PO Q8H PRN 15 Days #30 tab 11/24/20 ferrous sulfate 325 mg (65 mg 325 mg PO BID 60 Days #120 tab 12/07/20 iron) tablet azithromycin 250 mg PO DAILY 4 Days #4 tab 01/16/21 Allergies Allergy/AdvReac Type Severity Reaction Status Date / Time Iodinated Contrast Media Allergy Intermediate RED ALL Verified 12/22/20 09:02 [IV Dye, Iodine Containing] OVER NAUSEA AND LOST RESPIRATIONS Penicillins [PENICILLINS] Allergy Unknown UNKNOWN Verified 12/22/20 09:02 REACTION phenytoin [From Dilantin] Allergy Unknown Unknown Verified 12/22/20 09:02 Review of Systems Review of Systems: Yes all other systems are reviewed and are negative Constitutional: Constitutional: Reports no additional constitutional complaints, Denies body ache(s), Denies chills, Denies fever(s), Denies headache(s) and Denies weakness Eyes: Eyes: Reports no additional eye complaints and Denies change in vision ENT: Reports system reviewed and no additional complaints, except as docum ented, Denies dizziness, Denies headache(s), Denies nasal congestion, Denies nasal discharge and Denies neck pain Cardiovascular: Cardiovascular: Reports no additional cardiovascular complaints, Denies chest pain, Denies leg edema and Denies dyspnea Respiratory: Respiratory: Reports no additional respiratory complaints, Denies cough and Denies dyspnea Gastrointestinal: Gastrointestinal: Reports no additional gastrointestinal complaints, Denies abdominal pain, Denies diarrhea, Denies nausea and Denies vomiting Genitourinary: Genitourinary: Reports no additional female genitourinary complaints and Denies urinary incontinence Musculoskeletal: Musculoskeletal: Reports no additional musculoskeletal complaints, Denies back pain, Reports arthralgias, Denies joint swelling, Denies neck pain, Denies numbness and Denies tingling Integumentary/Breasts: Skin/Breast: Reports system reviewed and no additional complaints, except as docu and Denies rash Neurologic: Reports system reviewed and no additional complaints, except as documented, Denies Abnormal speech present, Denies dizziness, Denies headache(s), Denies numbness, Denies tingling and Denies weakness [facility] Past Medical History Attestation statement: The following information was validated with the patient. Source: old records reviewed and nursing notes reviewed Medical History Encephalomalacia Epilepsy Expressive aphasia Hyponatremia Hypotension Pre-op evaluation Pre-op examination Seizures Unsteady gait Surgical History H/O prior ablation treatment History of section History of skin graft History of tubal ligation History of tumor Surgical history unknown Family History Family History Father Heart problem Mother Diabetes Low blood pressure Social History Social History Alcohol intake: never Smoking Status: Never smoker Advance Directives: No Advance Directives Information Provided: No Physical Exam Vital Signs: Vital Signs: Last Vital Signs Temp 97.8 F 01/16/21 15:37 Pulse 67 01/16/21 15:37 Resp 15 01/16/21 15:37 BP 99/52 L 01/16/21 15:37 Pulse Ox 99 01/16/21 15:37 Body Mass Index 34.7 Const: General: cooperative, healthy appearing, comfortable and no acute distress Orientation/consciousness: patient oriented x3 Limitations: no limitations HENMT: Head: Yes normal to inspection Ears: hearing grossly normal bilaterally General nose exam: Normal external nose present Face and sinus: Yes normal facial exam Mouth: Normal oral and palatal mucosa present Throat: Yes posterior oropharynx normal Eyes: General: appearance normal, both eyes and all related structures Pupils: Equal, round and reactive pupils present Neck: Other: Tenderness over the posterior cervical spine with no step-offs or deformities. Neck: Yes normal visual inspection, Yes full ROM, Yes no lymphadenopathy and Yes no meningeal signs Chest: Chest palpation & inspection: normal inspection of the chest and tenderness (Right-sided chest wall pain. No ecchymosis or crepitus) Resp: Effort & Inspection: normal respiratory effort Auscultation: clear to auscultation bilaterally Cardio: Rate: regular rate Rhythm: regular rhythm Peripheral pulses: Peripheral pulses 2+ throughout GI: Inspection: Yes normal to inspection Palpation (GI): Soft to palpation and nontender Auscultation: normal bowel sounds Back/Spine/Pelvis: Other: Lower lumbar midline tenderness with no step-offs or deformities Pain is worsened with straight leg raise bilaterally Thoracic/Lumbar Spine: thoracic and lumbar spine normal to inspection Skin: General skin exam: no rashes or lesions noted Neuro: General: patient oriented x3, no meningeal signs, no focal motor deficits, normal sensation to monofilament and Unable to assess gait Cranial nerves: Yes CN's II-XII intact bilaterally, Yes Equal, round and reactive pupils present, Yes Bilaterally intact EOM present, Yes Nystagmus not present, Yes Normal facial strength present and Yes Midline tongue present Cognition (Neuro): normal cognition Speech: No Abnormal speech present Gait exam (Neuro): Unable to assess gait Motor exam (neuro): 5/5 motor strength present throughout Sensory Exam: Normal double simultaneous stimulation for sensation Coordination: [id number] test normal and [id number] test normal Extrem: Other: Tenderness over the right proximal humerus with some ecchymosis which appears old. There is pain with abduction of the arm. No obvious swelling, erythema, warmth. Palpable distal pulse. Patient also some tenderness over the right dorsal wrist with some mild swelling. No obvious deformity. Pain with flexion and extension of the wrist. Neurovascularly intact distally. Patient has tenderness over most of her major muscles which seems quite diffuse. General: Yes normal to inspection Course Course Course Narrative: 55-year-old female here with right upper extremity pain, neck pain, low back pain and right-sided chest wall pain after a fall which occurred several days ago which per patient is mechanical. On exam she also has some diffuse muscle aches and tenderness. Afebrile. Will need x-rays, CT head and neck, labs, EKG. 1730-CT head and neck negative. X-ray show a healing right proximal humeral fracture. There is also concern of a left lower lobe pneumonia. Patient denies fevers, chills, cough, shortness of breath. No leukocytosis or shift afebrile. Will treat with course of antibiotics. 1900-COVID screen negative. All labs unremarkable. Reviewed findings with the patient. Plan for discharge home with oral antibiotics. Reviewed worrisome signs and symptoms of when to return to the emergency department. Comfortable discharge home. MDM - Fall Medical Records Attestation: I reviewed the patient's medical records. Lab Data Attestation: I reviewed the patient's lab results. Result diagrams: 01/16/21 15:30 01/16/21 17:30 Labs: Lab Results 01/16/21 01/16/21 01/16/21 Range/Units 15:30 15:30 15:30 WBC 4.5 L (4.8-10.8) X10*3/uL RBC 3.50 L (4.20-5.50) X10*6/uL Hgb 11.0 L (12.0-16.0) g/dl Hct 34.1 L (37-47) % MCV 97.4 (80-98) fL MCH 31.4 (27.0-33.0) pg MCHC 32.3 (31.0-35.0) g/dl RDW 13.3 (11.0-16.0) % Plt Count 156 L D (160-400) X10*3/uL MPV 9.9 (9.4-12.3) fL Immature Gran % (Auto) 0.4 (0.0-0.4) % Neut % (Auto) 55.6 (45-73) % Lymph % (Auto) 29.1 (20-40) % Sargent % (Auto) 9.0 (2-11) % Eos % (Auto) 5.2 H (0-4) % Baso % (Auto) 0.7 (0-2) % Lymph # (Auto) 1.3 (1.2-4.9) X10*3/uL Sargent # (Auto) 0.4 (0.1-1.2) X10*3/uL Eos # (Auto) 0.2 (0.0-0.4) X10*3/uL Baso # (Auto) 0.0 (0.0-0.2) X10*3/uL Abs Immat Gran (auto) 0.02 (0.00-0.03) X10*3/uL Absolute Neuts (auto) 2.5 (2.0-8.3) X10*3/uL Absolute Nucleated RBC 0.000 (0.0-0.012) X10*3/uL Nucleated RBC % (auto) 0.0 (0.0-0.2) /100WBC Hold Blue Top SEE NOTE Sodium (135-145) mmol/L Potassium (3.3-5.1) mmol/L Chloride (96-108) mmol/L Carbon Dioxide (22-29) mmol/L Anion Gap (12-20) BUN (9-16) mg/dL Creatinine (0.5-1.4) mg/dL Estim Creat Clear Calc Estimated GFR Random Glucose (60-115) mg/dL Calcium (8.4-10.2) mg/dL Magnesium 1.6 (1.6-2.6) mg/dL Total Creatine Kinase (26-140) U/L COVID-19 (MICHELLE) (Negative) COVID-19 Clin Com 01/16/21 01/16/21 01/16/21 Range/Units 15:30 16:54 17:30 WBC (4.8-10.8) X10*3/uL RBC (4.20-5.50) X10*6/uL Hgb (12.0-16.0) g/dl Hct (37-47) % MCV (80-98) fL MCH (27.0-33.0) pg MCHC (31.0-35.0) g/dl RDW (11.0-16.0) % Plt Count (160-400) X10*3/uL MPV (9.4-12.3) fL Immature Gran % (Auto) (0.0-0.4) % Neut % (Auto) (45-73) % Lymph % (Auto) (20-40) % Sargent % (Auto) (2-11) % Eos % (Auto) (0-4) % Baso % (Auto) (0-2) % Lymph # (Auto) (1.2-4.9) X10*3/uL Sargent # (Auto) (0.1-1.2) X10*3/uL Eos # (Auto) (0.0-0.4) X10*3/uL Baso # (Auto) (0.0-0.2) X10*3/uL Abs Immat Gran (auto) (0.00-0.03) X10*3/uL Absolute Neuts (auto) (2.0-8.3) X10*3/uL Absolute Nucleated RBC (0.0-0.012) X10*3/uL Nucleated RBC % (auto) (0.0-0.2) /100WBC Hold Blue Top Sodium 141 (135-145) mmol/L Potassium 4.2 (3.3-5.1) mmol/L Chloride 104 (96-108) mmol/L Carbon Dioxide 29 (22-29) mmol/L Anion Gap 12 (12-20) BUN 17 H (9-16) mg/dL Creatinine 0.59 (0.5-1.4) mg/dL Estim Creat Clear Calc 116.6 Estimated GFR > 60 Random Glucose 71 (60-115) mg/dL Calcium 9.0 (8.4-10.2) mg/dL Magnesium (1.6-2.6) mg/dL Total Creatine Kinase 153 H D (26-140) U/L COVID-19 (MICHELLE) Negative (Negative) COVID-19 Clin Com See Note Imaging Data CT scan - head: Attestation: I personally reviewed and interpreted this imaging study as follows: Radiologist's impression: IMPRESSION: No acute fracture or acute malalignment in the cervical spine. Mild degenerative disc disease in the cervical spine. Reversal of normal cervical lordosis is unchanged from prior studies and likely due to the mild degenerative spondylosis in this region. This can also be positional. Muscle spasm is less likely. lumbar spine: Attestation: I personally reviewed and interpreted this imaging study as follows: Radiologist's impression: MPRESSION: Unremarkable lumbar spine radiographs. No acute osseous findings or significant degenerative spondylosis. Chest x-ray: Attestation: I personally reviewed and interpreted this imaging study as follows: Radiologist's impression: EXAMINATION: CHEST 2 VIEWS CLINICAL INFORMATION: Pain after fall. COMPARISON: October 31, 2019. TECHNIQUE: PA and lateral views of the chest were obtained. FINDINGS: The cardiac silhouette is not enlarged. The mediastinal and hilar contours are unremarkable. There are no pneumothoraces. There is a small left pleural effusion with associated airspace disease. Partially visualized is the incompletely healing/healed fracture to the proximal right humerus. The osseous structures are otherwise unremarkable. XR/XR chest 2V IMPRESSION: Small left pleural effusion with associated airspace disease. Partially visualized is the incompletely healing/healed fracture to the proximal right humerus. Please refer to the subsequent right humerus study for further evaluation. wrist/humerus xray right: Attestation: I personally reviewed and interpreted this imaging study as follows: Radiologist's impression: [facility], [place] [address]QVgp ReportSigned Patient: Dorie DeenMR#: [id number]: [id number]:[id number]/Sex: 55 / FADM Date: 01/16/21Loc: HO.EDAttending Dr: Ordering Physician: MUMTAZ JULIAN NP Date of Service: 01/16/21 Procedure(s): XR forearm RT 2V Accession Number(s): [id number] cc: MUMTAZ JULIAN SERVICES ENGINEER~ EXAMINATION: XR HUMERUS, RIGHT XR FOREARM, RIGHT CLINICAL INFORMATION: Fall. Pain. COMPARISON: 12/22/2020 TECHNIQUE: AP and lateral views of the right humerus and of the right forearm. FINDINGS: Humerus: Again seen is a healing oblique/transverse fracture of the right proximal humeral shaft with bone formation at the margins of the fracture site primarily osseous bridging is possible. Lateral view is limited by the overlying chest. Disuse osteopenia is noted. Alignment is unchanged from prior. No new fractures. Acromioclavicular and glenohumeral joints are normal. Mild soft tissue swelling. Right forearm: Bones are osteopenic. No acute fracture or malalignment. Elbow joint appears appropriately aligned. Sensitivity for a elbow joint effusion is limited. No fractures are identified in this region. The wrist is not well assessed on these images due to the obliquity. Mild soft tissue swelling in the distal forearm. XR/XR forearm RT 2V IMPRESSION: 1. Healing fracture of the right proximal humerus without sniffing change in alignment. 2. No acute fractures are identified in the remainder of the right humerus and at the right forearm. 3. Osteopenia. ECG Data Attestation: I personally reviewed and interpreted this ECG as follows: ECG interpretation date: 01/16/21 ECG interpretation time: 15:35 Interpretation: nsr, rate 69, normal pr, normal qrs, normal st segment Discharge Plan Discharge Clinical Impression: Contusion of arm, right, Back contusion, Cervical strain Pneumonia Qualifiers: Pneumonia type: due to unspecified organism Laterality: left Lung location: lower lobe of lung Qualified Code(s): J18.9 - Pneumonia, unspecified organism Patient Disposition: Home, Self-Care Instructions: Contusion in Adults (ED), Bacterial Pneumonia (ED) Additional Instructions: Increase fluids, rest Start your antibiotic tomorrow Return for shortness of breath, fever greater than 100.4 that does not respond to Motrin or Tylenol Take Motrin or Tylenol for pain or fever as needed Prescriptions: New azithromycin 250 mg tablet 250 mg PO DAILY 4 Days Qty: 4 RF: 0 No Action sucralfate 1 gram tablet 2 g PO DAILY 90 Days Qty: 180 RF: 0 dicyclomine 20 mg tablet 1 tab PO TID RF: 0 pantoprazole 40 mg tablet,delayed release (DR/EC) 1 tab PO DAILY RF: 0 phenobarbital 64.8 mg tablet 2 tab PO BEDTIME RF: 0 clobazam 20 mg tablet 1 tab PO BID RF: 0 Xcopri 200 mg tablet 1 tab PO DAILY RF: 0 ibuprofen 800 mg tablet 800 mg PO Q8H PRN (Reason: pain) 15 Days Qty: 30 RF: 0 cyclobenzaprine 10 mg tablet 10 mg PO BEDTIME PRN (Reason: muscle spasm) 30 Days Qty: 30 RF: 0 (DME) diaper,brief,adult,disposable Misc See Rx Instructions .ROUTE .MEDSUPPLY Qty: 10 RF: 0 ferrous sulfate 325 mg (65 mg iron) tablet 325 mg PO BID 60 Days Qty: 120 RF: 0 Aptiom 600 mg tablet 600 mg PO BID RF: 0 risperidone 1 mg tablet 1 mg PO BEDTIME RF: 0 tramadol 50 mg tablet 50 mg PO BID 7 Days Qty: 14 RF: 0 Referrals: Physician,Unknown [Primary Care Provider] - 2 days Interventions: ED Discharge Assessment Last Done: 01/16/21 19:46 Discharge Date/Time: 01/16/21 19:48
--- NOTE | 2021-01-16 15:14 | ECG_ITS ---
Test Reason : FALL Blood Pressure : / mmHG Vent. Rate : 069 BPM Atrial Rate : 069 BPM P-R Int : 154 ms QRS Dur : 080 ms QT Int : 382 ms P-R-T Axes : 057 017 046 degrees QTc Int : 409 ms Normal sinus rhythm Normal ECG When compared with ECG of 07-DEC-2020 08:19, No significant change was found Referred By: Gardenia Delacruz Electronically Signed By:HUGO RODRIGUEZ MD
[2021-01-16 15:34] LABS: MANUAL DIFF FLAG NO
[2021-01-16 15:35] LABS: Basophils Percent Auto 0.7 % (0-2); Eosinophils Absolute Auto 0.2 X10*3/uL (0.0-0.4); Eosinophils Percent Auto 5.2 % (0-4); Hematocrit 34.1 % (37-47); Imm Gran Abs Auto 0.02 X10*3/uL (0.00-0.03); Imm Gran Pct Auto 0.4 % (0.0-0.4); Lymphocytes Absolute Auto 1.3 X10*3/uL (1.2-4.9); Lymphocytes Percent Auto 29.1 % (20-40); Mean Corpuscular HGB Conc 32.3 g/dl (31.0-35.0); Mean Corpuscular Hemoglobin 31.4 pg (27.0-33.0); Mean Corpuscular Volume 97.4 fL (80-98); Mean Platelet Volume 9.9 fL (9.4-12.3); Monocytes Absolute Auto 0.4 X10*3/uL (0.1-1.2); Neutrophils Absolute Auto 2.5 X10*3/uL (2.0-8.3); Neutrophils Percent Auto 55.6 % (45-73); Platelet Count 156 X10*3/uL (160-400); Red Cell Distribution Width 13.3 % (11.0-16.0); White Blood Count 4.5 X10*3/uL (4.8-10.8)
[2021-01-16 15:37] VITALS: BP 99/52; PULSE 67; RESP 15; TEMP 36.6; O2SAT 99
[2021-01-16 16:04] LABS: Magnesium 1.6 mg/dL (1.6-2.6)
[2021-01-16] MEDS: Azithromycin 500 MG TABLET PO (16:50)
[2021-01-16 17:18] LABS: COVID-19 Test Negative (Negative)
[2021-01-16 18:06] LABS: Anion Gap 12 (12-20); Blood Urea Nitrogen 17 mg/dL (9-16); Carbon Dioxide 29 mmol/L (22-29); Chloride 104 mmol/L (96-108); Creatinine Clr Calc Pharmacy 116.6; Estimated Glomerular Filt Rate > 60; Glucose Random 71 mg/dL (60-115); Potassium 4.2 mmol/L (3.3-5.1); Sodium 141 mmol/L (135-145)
== END 2021-01-16 19:48 | disposition home or self-care (01) ==
PROVIDERS: Nurse Practitioner Family; Emergency Provider Emergency Medicine
DX: S40.021A Contusion of right upper arm, initial encounter (principal); S10.93XA Contusion of unspecified part of neck, initial encounter; S30.0XXA Contusion of lower back and pelvis, initial encounter; W18.30XA Fall on same level, unspecified, initial encounter; J18.9 Pneumonia, unspecified organism; Z20.822 Contact with and (suspected) exposure to COVID-19; Y93.89 Activity, other specified; Y92.032 Bedroom in apartment as the place of occurrence of the external cause; Y99.9 Unspecified external cause status
CPT/HCPCS: 36415; 70450; 71046; 72100; 72125; 73060; 73090; 80048; 82550; 83735; 85025; 87635; 93005; 99284

== ENCOUNTER 2021-01-31 11:17 | Outpatient (REF) | payer MEDICARE, MEDICAID, SELFPAY ==
--- NOTE | ~2021-01-31 | US_ITS ---
EXAMINATION: ULTRASOUND PELVIS COMPLETE. CLINICAL INFORMATION: Pelvic and perineal pain COMPARISON: Ultrasound pelvis 05/24/2016 TECHNIQUE: Transabdominal and transvaginal imaging of pelvis is performed. FINDINGS: The uterus is anteverted and anteflexed measuring 5.7 cm in length, 2.9 cm in AP and 5.10 cm in transverse dimension. Endometrial thickness is 0.2 cm. There is a hypoechoic new lesion in the left upper body of uterus measuring 1.0 x 0.8 x 1.0 cm likely small fibroid. Previously seen 1.1 cm fibroid is not visualized at this time. Right ovary measures 2.4 x 1.3 x 1.3 cm. Previously measured 2.6 x 1.4 x 1.5 cm. The left ovary is not visualized. There is no free fluid in the cul-de-sac. US/US pelvic complete IMPRESSION: 1. Anteverted uterus with a new fibroid left upper uterine body. Previously seen fibroid in 2016 is not visualized at this time. 2. The right ovary is unremarkable. The left ovary is not seen well. 3. There is no free fluid in cul-de-sac.
--- NOTE | ~2021-01-31 | US_ITS ---
EXAMINATION: ULTRASOUND PELVIS COMPLETE. CLINICAL INFORMATION: Pelvic and perineal pain COMPARISON: Ultrasound pelvis 05/24/2016 TECHNIQUE: Transabdominal and transvaginal imaging of pelvis is performed. FINDINGS: The uterus is anteverted and anteflexed measuring 5.7 cm in length, 2.9 cm in AP and 5.10 cm in transverse dimension. Endometrial thickness is 0.2 cm. There is a hypoechoic new lesion in the left upper body of uterus measuring 1.0 x 0.8 x 1.0 cm likely small fibroid. Previously seen 1.1 cm fibroid is not visualized at this time. Right ovary measures 2.4 x 1.3 x 1.3 cm. Previously measured 2.6 x 1.4 x 1.5 cm. The left ovary is not visualized. There is no free fluid in the cul-de-sac. US/US transvaginal IMPRESSION: 1. Anteverted uterus with a new fibroid left upper uterine body. Previously seen fibroid in 2016 is not visualized at this time. 2. The right ovary is unremarkable. The left ovary is not seen well. 3. There is no free fluid in cul-de-sac.
== END 2021-01-31 11:18 | disposition home or self-care (01) ==
LOC: HO.US 11:17
PROVIDERS: Visit Provider Internal Medicine
DX: R10.2 Pelvic and perineal pain (principal)
CPT/HCPCS: 76830; 76856

== ENCOUNTER 2021-02-02 08:13 | Outpatient (REF) | payer MEDICARE, MEDICAID, SELFPAY ==
--- NOTE | ~2021-02-02 | XR_ITS ---
EXAMINATION: XR SHOULDER, RIGHT CLINICAL INFORMATION: Right shoulder pain. COMPARISON: 01/16/2021 and studies dating back to 11/16/2020 TECHNIQUE: Two views of the right shoulder. FINDINGS: There is again seen to be a stable fracture of the proximal right humerus with some periosteal new bone formation present but with fracture line still being evident. There does appear to be some marginal bony bridging. There is some osteopenia present. No significant glenohumeral joint abnormality. No widening of the coracoclavicular space. No significant acromioclavicular joint problem. XR/XR shoulder RT min 2V IMPRESSION: Healing stable alignment fracture proximal right humerus.
== END 2021-02-02 08:14 | disposition home or self-care (01) ==
LOC: HO.HOSX 08:13
PROVIDERS: Visit Provider Physician Assistant
DX: S42.214D Unspecified nondisplaced fracture of surgical neck of right humerus, subsequent encounter for fracture with routine healing (principal); M25.511 Pain in right shoulder
CPT/HCPCS: 73030; 99212

== ENCOUNTER 2021-03-23 09:44 | Outpatient (REF) | payer MEDICARE, MEDICAID, SELFPAY ==
[2021-03-27 03:37] LABS: HPV mRNA E6/E7 rflx Not Detected (Not Detected)
== END 2021-03-23 09:45 | disposition home or self-care (01) ==
LOC: HO.LAB 09:44
PROVIDERS: PCP Internal Medicine; Visit Provider Obstetrics & Gynecology
DX: Z12.4 Encounter for screening for malignant neoplasm of cervix (principal); Z11.51 Encounter for screening for human papillomavirus (HPV); N39.41 Urge incontinence
CPT/HCPCS: 87624; 88142

== ENCOUNTER 2021-03-24 17:44 | Outpatient (REF) | payer MEDICARE, MEDICAID, SELFPAY | END 2021-03-24 17:45 | disposition home or self-care (01) | LOC: HO.LAB 17:44 | PROVIDERS: Visit Provider Obstetrics & Gynecology | DX: Z13.89 Encounter for screening for other disorder (principal) ==

== ENCOUNTER 2021-03-30 08:16 | Outpatient (REF) | payer MEDICARE, MEDICAID, SELFPAY ==
--- NOTE | ~2021-03-30 | XR_ITS ---
EXAMINATION: XR SHOULDER, RIGHT CLINICAL INFORMATION: Right shoulder pain. COMPARISON: 02/02/2021 TECHNIQUE: Two views of the right shoulder. FINDINGS: There is no change in alignment of proximal right humeral surgical neck fracture. There is some periosteal new bone formation which appears somewhat increased from previous study, and there may be some degree of bony union now present laterally. No evidence of calcific tendinitis. XR/XR shoulder RT min 2V IMPRESSION: Stable alignment of proximal right humeral fracture with some degree of interval healing, but with fracture line still evident.
== END 2021-03-30 08:17 | disposition home or self-care (01) ==
LOC: HO.HOSX 08:16
PROVIDERS: Visit Provider Physician Assistant
DX: M25.511 Pain in right shoulder (principal); S42.209D Unspecified fracture of upper end of unspecified humerus, subsequent encounter for fracture with routine healing; S42.201D Unspecified fracture of upper end of right humerus, subsequent encounter for fracture with routine healing
CPT/HCPCS: 73030; 99212

== ENCOUNTER 2021-03-30 09:41 | Outpatient (REF) | payer MEDICARE, MEDICAID, SELFPAY ==
[2021-03-30 11:08] LABS: Alanine Aminotransferase 38 U/L (0-31); Albumin Level 3.8 g/dL (3.5-5.0); Alkaline Phosphatase 114 U/L (39-117); Anion Gap 12 (12-20); Aspartate Amino Transferase 23 U/L (5-31); Bilirubin Total 0.3 mg/dL (0.0-1.0); Blood Urea Nitrogen 19 mg/dL (9-16); Calcium 9.1 mg/dL (8.4-10.2); Carbon Dioxide 29 mmol/L (22-29); Chloride 103 mmol/L (96-108); Estimated Glomerular Filt Rate > 60; Glucose Random 90 mg/dL (60-115); Potassium 4.4 mmol/L (3.3-5.1); Sodium 140 mmol/L (135-145); Total Protein 7.3 g/dL (6.5-8.0)
== END 2021-03-30 09:42 | disposition home or self-care (01) ==
LOC: HO.LAB 09:41
PROVIDERS: PCP Internal Medicine; Visit Provider Psychiatry & Neurology Neurology
DX: G40.109 Localization-related (focal) (partial) symptomatic epilepsy and epileptic syndromes with simple partial seizures, not intractable, without status epilepticus (principal); M25.511 Pain in right shoulder; S42.201D Unspecified fracture of upper end of right humerus, subsequent encounter for fracture with routine healing; X58.XXXD Exposure to other specified factors, subsequent encounter
CPT/HCPCS: 36415; 80053

== ENCOUNTER 2021-04-11 08:00 | Outpatient (RCR) | payer MEDICARE, MEDICAID, SELFPAY ==
--- NOTE | 2021-01-04 11:51 | MHC.PT.EP ---
[facility] [place] Office [place] Office [place] Office [address] Feliciano [address] [phone] F: [phone] F: [phone] F: [phone] F: [phone] Physical Therapy Plan of Care Date of Evaluation: 01/03/21 Date of Surgery: Diagnosis: non-displaced fracture of neck of R humerus Assessment: Pt is Frequency and Duration: The patient will be seen 2 x / wk x 8 wks. Short Term Goals: In 4 weeks: R shoulder flexion ROM to > 159 degrees; initial: 75 PROM In 1 week: initiate HEP with caregiver and demonstrate carryover tin the home. Order Builder Loader Goals: In 8 weeks: Pt will be able to wash her hair independently; initial: requires assistance. In 8 weeks: Pt will be able to dress pullovers independently; initial: requires assistance. Treatment Plan: Modalities to reduce pain, spasms and effusion. Manual therapy to restore motion and function. Therapeutic exercise to improve strength and flexibility. Neuromuscular re-education for posture and balance. Therapeutic activities to return to functional activities of daily living. Electronically signed by: Jose Hines PT. Please sign and return to therapist. Thank you for your referral.
--- NOTE | 2021-06-03 14:32 | MHC.PT.DC ---
[facility] [place] [facility] [place] [facility] [place] [facility] [address] Phoebe Feliciano [address] [phone] F: [phone] F: [phone] F: [phone] F: [phone] Physical Therapy Discharge Report Diagnosis: non-displaced fracture of neck of R humerus Date of Surgery: Date of Evaluation: 01/03/21 Date of Discharge: 06/03/21 Treatments to Date: 16 Cancellations to Date: 0 No Shows to Date: 0 Discharge Status: Discharge Summary: Nanci has been an active participant in her therapy in the clinic with poor home compliance despite good home encouragement and assistance. Pt is Dc'd as she has been admitted to the hospital. From last treatment note: Flexion 128 deg PROM 120 AROM with overhead activities (significant improvement from last assessment); abd AROM 75 degrees, PROM 112. Pt is improving her tolerance for functional activities. She continues to have difficulty with traditional exercise and does well with functional tasks. No adverse effects. Trialed no HP today; PT is encouraging Pt to ambulate with walker; Pt reports those are for old people ; however did ambulate in the clinic with improved gait deviations; Pt was reminded she was in PT for falls and her falling is not only related to her seizures. Electronically signed by: Jose Hines PT. Please sign and return to therapist. Thank you for your referral.
== END 2021-06-03 14:33 | disposition home or self-care (01) ==
LOC: HO.PTCHIC 08:00
PROVIDERS: Visit Provider Physician Assistant
DX: S42.214D Unspecified nondisplaced fracture of surgical neck of right humerus, subsequent encounter for fracture with routine healing (principal)
CPT/HCPCS: 97110; 97116; 97140; 97163; 97530

== ENCOUNTER 2021-04-18 09:14 | Inpatient (IN) | payer MEDICARE, MEDICAID, SELFPAY ==
[2021-04-18] VITALS (7 sets, daily range): BP systolic 102–134; BP diastolic 51–85; PULSE 61–77; RESP 12–16; TEMP 36.9; O2SAT 95–99; BMI 30.1; BMI 36.0
--- NOTE | ~2021-04-18 | XR_ITS ---
EXAMINATION: BILATERAL FEET CLINICAL INFORMATION: Bilateral foot swelling and pain COMPARISON: Left ankle and foot 05/19/2019 TECHNIQUE: 3 views each foot FINDINGS: Left: There has been healing of the previously seen dorsal talar avulsion fracture. An old fracture/degenerative change present again seen involving the navicular. No acute fracture is seen. Right: No significant bone, joint or soft tissue abnormality is seen. XR/XR foot LT 2V IMPRESSION: No acute significant abnormality is seen in either foot.
--- NOTE | ~2021-04-18 | XR_ITS ---
EXAMINATION: BILATERAL FEET CLINICAL INFORMATION: Bilateral foot swelling and pain COMPARISON: Left ankle and foot 05/19/2019 TECHNIQUE: 3 views each foot FINDINGS: Left: There has been healing of the previously seen dorsal talar avulsion fracture. An old fracture/degenerative change present again seen involving the navicular. No acute fracture is seen. Right: No significant bone, joint or soft tissue abnormality is seen. XR/XR foot RT 2V IMPRESSION: No acute significant abnormality is seen in either foot.
--- NOTE | ~2021-04-18 | CT_ITS ---
EXAMINATION: CT HEAD WITHOUT CONTRAST (STROKE PROTOCOL) CLINICAL INFORMATION: Stroke protocol. Seizure versus stroke. COMPARISON: Previous head CT December 2020 TECHNIQUE: Contiguous axial imaging was performed from the skull base to vertex without intravenous administration of contrast. This CT examination was performed using dose optimization techniques as appropriate, variously including the following: *Automated exposure control *Adjustment of mA and/or kV according to patient size (this includes techniques or standardized protocols for targeted exams where dose is matched to indication/reason for exam; i.e. extremities or head) *Use of iterative reconstruction technique DLP: 669 mGy-cm FINDINGS: There is no evidence of an extra-axial collection. There is no evidence of intra-axial or extra-axial hemorrhage. There is low-attenuation seen in the left posterior parietal lobe suggestive of postoperative change or encephalomalacia. There is mild ex vacuo dilatation of the adjacent posterior horn of the left lateral ventricle. The ventricles and extra-axial CSF spaces are otherwise appropriate. No mass, mass effect or acute infarct is seen. There are postsurgical changes to the left parietal bone/postoperative craniotomy. Bony structures are otherwise unremarkable. Visualized paranasal sinuses, mastoid air cells and middle ears are clear. CT/CT head for stroke IMPRESSION: No acute findings. 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 This critical result was discussed with chucho Whiteside at 0950 hours on 04/18/2021. It was ascertained that the content and urgency of the report was understood at the time of direct communication.
--- NOTE | 2021-04-18 09:18 | ECG_ITS ---
Test Reason : STROKE Blood Pressure : / mmHG Vent. Rate : 073 BPM Atrial Rate : 073 BPM P-R Int : 176 ms QRS Dur : 084 ms QT Int : 400 ms P-R-T Axes : 070 054 069 degrees QTc Int : 440 ms Normal sinus rhythm Normal ECG No significant changes when compared with the previous EKG of 16 january 2021 Referred By: Herbert Gutiérrez Electronically Signed By:JONEL QUINTEROS
--- NOTE | 2021-04-18 09:19 | PC.NURSE ---
pt received brought in by [facility]. Patient with unwitnessed fall at home, question stroke v seizure. Patient with slurred and slow speech. Dipesh Gutiérrez at bedside
--- NOTE | 2021-04-18 09:26 | ED_ITS ---
HPI - Seizure General Chief Complaint: Stroke Stated Complaint: FALL 1 HOUR,? SZ/POST ICTAL,R FACE DROOP/ARM DRIFT Time Seen by Provider: 04/18/21 09:18 Source: patient Mode of arrival: ambulatory Limitations: no limitations History of Present Illness HPI Narrative: Patient brought to the ED for evaluation for seizure versus stroke. Patient was found on the ground by family at 08:15 a.m. and then called ambulance around 8;40am. EMS thought at that time she had right facial droop and right pronator drift. Patient history of seizure. Last known well unknown. Once again family found on the ground. Patient history of uncontrollable seizures and has had left parietal occipital craniotomy. Patient's speech is more slurred. Seizure History: Yes Related Data Home Medications Medication Instructions Recorded Confirmed cenobamate [Xcopri] 1 tab PO DAILY 09/28/20 02/08/21 clobazam 1 tab PO BID 09/28/20 02/08/21 pantoprazole 1 tab PO DAILY 09/28/20 02/08/21 phenobarbital 2 tab PO BEDTIME 09/28/20 02/08/21 eslicarbazepine 600 mg tablet 600 mg PO BID tab 11/04/20 02/08/21 risperidone 1 mg tablet 1 mg PO BEDTIME 11/04/20 02/08/21 oxycodone-acetaminophen 5 mg-325 1 tab PO Q4H 02/02/21 02/08/21 mg tablet citalopram 20 mg tablet 20 mg PO DAILY 02/08/21 02/08/21 Previous Rx's Medication Instructions Recorded cyclobenzaprine 10 mg tablet 10 mg PO BEDTIME PRN 30 Days #30 11/24/20 tab diaper,brief,adult,disposable #10 ea 11/24/20 ibuprofen 800 mg tablet 800 mg PO Q8H PRN 15 Days #30 tab 11/24/20 ferrous sulfate 325 mg (65 mg 325 mg PO BID 60 Days #120 tab 12/07/20 iron) tablet dicyclomine 20 mg tablet 20 mg PO TID #90 tab 01/21/21 sucralfate 1 gram tablet 2 g PO DAILY 90 Days #180 tab 02/15/21 Allergies Allergy/AdvReac Type Severity Reaction Status Date / Time Iodinated Contrast Media Allergy Intermediate RED ALL Verified 03/30/21 09:06 [IV Dye, Iodine Containing] OVER NAUSEA AND LOST RESPIRATIONS Penicillins [PENICILLINS] Allergy Intermediate Unknown Verified 03/30/21 09:06 phenytoin [From Dilantin] Allergy Intermediate gum Verified 03/30/21 09:06 swelling Review of Systems Review of Systems: His dyasarthric speech Yes all other systems are reviewed and are negative [facility] Past Medical History Medical History Encephalomalacia Epilepsy Expressive aphasia Hyponatremia Hypotension Pre-op evaluation Pre-op examination Screening for cervical cancer Seizures Unsteady gait Urge urinary incontinence Surgical History H/O prior ablation treatment History of section History of skin graft History of tubal ligation History of tumor Surgical history unknown Family History Family History Father Heart problem Mother Diabetes Low blood pressure Social History Social History Alcohol intake: never Patient Tobacco Use Status: Never used Tobacco Use of substances other than those prescribed or required for medical reasons: No Advance Directives: Yes Advance Directives Information Provided: No Advance Directives on File: No Patient : No Current occupational status: unemployed Physical Exam Vital Signs: Vital Signs: Last Vital Signs Pulse 75 04/18/21 15:48 Resp 12 04/18/21 15:48 BP 129/85 04/18/21 15:48 Pulse Ox 99 04/18/21 15:48 Body Mass Index 36.0 Const: Other: Dysarthric speech HENMT: Other: Negative facial droop Head: Yes normal to inspection, Yes No palpable skull fracture present, Yes normocephalic and Yes atraumatic Eyes: General: appearance normal, both eyes and all related structures Neck: Neck: Yes normal visual inspection, Yes full ROM, Yes no lymphadenopathy, Yes no meningeal signs, Yes trachea midline, Yes supple and No tender Chest: Chest palpation & inspection: normal inspection of the chest and normal palpation of entire chest wall Resp: Effort & Inspection: normal respiratory effort and able to speak in complete sentences Auscultation: clear to auscultation bilaterally Cardio: Jugular venous distension: no JVD Heart sounds: S1 normal heart sound present and S2 normal heart sound present GI: Inspection: Yes normal to inspection and No abdominal wall ecchymosis Palpation (GI): Soft to palpation, not firm, nontender, no guarding and not rigid : General: No CVA tenderness and Yes no CVA tenderness Back/Spine/Pelvis: Back: no CVA tenderness, No CVA tenderness and No back tenderness Skin: General skin exam: no rashes or lesions noted and elasticity normal Neuro: Other: Negative facial droop. Negative pronator drift. All extremities equal strength 5+. Positive for Dysarthria Speech. General: no meningeal signs Extrem: General: Yes normal to inspection and Yes full ROM Psych: Appearance: grossly normal, well kempt and not disheveled NIH Stroke Scale Time: 09:15 Level of Consciousness: Alert Level of Consciousness Questions: Answers both questions correctly Level of Consciousness Commands: Performs both tasks correctly Best Gaze: Normal Visual: No visual loss Facial Palsy: Normal Motor Arm (Right): No drift Motor Arm (Left): No drift Motor Leg (Right): No drift Motor Leg (Left): No drift Limb Ataxia: Absent Sensory: Normal Best Language: No aphasia Dysarthia: Mild to moderate dysarthria Extinction and Inattention: No abnormality Score: 1 Course Course Course Narrative: Presently no new deficits except dysarthria. Most likely patient had a seizure. Will do labs and sent for head CT rule out stroke although very unlikely. Patient cannot get IV contrast due to allergy that causes itchiness and loss of respiration as per chart. Patient is alert oriented x3 Reevaluation(s) Reevaluation #1: Notes were reviewed patient had vagal nerve stimulator placed and brain surgery to help with severe seizures. Patient has expressive aphasia, unsteady gait, and self lobe malacia at baseline. Possibly patient at baseline is on chlorinated and does not have on stentable speech. Waiting to hear from family. Reevaluation #2: Dr. Hernandez of Neurology was called and informed of patient's history, physical exam and diagnostics and he states patient did not have a stroke and does not meet tPA criteria. Most likely patient had a seizure. Waiting to hear from family. Time: 10:13 Reevaluation #3: Spoke with daughter Hamida who states patient is not compliant with her seizure medications. She also states at baseline patient at times could be psychotic and also has abnormal gait. He then states sometimes patient could be alert oriented x3 but at baseline speech is not really understandable. Patient has expressive aphasia as per daughter. Daughter gave the number of Dr. Cordero which is her neurologist at [facility] and I will call him. Hamida Cellphone [phone] Time: 13:00 Additional Reevaluation(s): Spoke with Dr. Cordero of [facility] who states patient has severe uncontrolled seizures and has seziures everyday. He states patient is not compliant with her medications and believes that might be the cause for patient having constant seizures. Does admit patient's seizures difficult to control and she even had to had craniotomy. He States patient does not need to be transfer to [facility] and can be admitted at [facility] for observation. Dr. Cordero Cell phone numbner is [phone]. he states Xcopri shoul d be 300 and clobozam should be 10mg MDM - Seizure MDM Narrative Medical decision making narrative: Seizure Lab Data Result diagrams: 04/18/21 09:29 04/18/21 09:29 Labs: Lab Results 04/18/21 04/18/21 04/18/21 Range/Units 09:25 09:28 09:29 WBC 8.2 (4.8-10.8) X10*3/uL RBC 3.45 L (4.20-5.50) X10*6/uL Hgb 10.7 L (12.0-16.0) g/dl Hct 32.2 L (37-47) % MCV 93.3 (80-98) fL MCH 31.0 (27.0-33.0) pg MCHC 33.2 (31.0-35.0) g/dl RDW 13.7 (11.0-16.0) % Plt Count 194 (160-400) X10*3/uL MPV 8.8 L (9.4-12.3) fL Immature Gran % (Auto) 0.4 (0.0-0.4) % Neut % (Auto) 74.3 H (45-73) % Lymph % (Auto) 15.7 L (20-40) % [place] % (Auto) 7.4 (2-11) % Eos % (Auto) 1.8 (0-4) % Baso % (Auto) 0.4 (0-2) % Lymph # (Auto) 1.3 (1.2-4.9) X10*3/uL [place] # (Auto) 0.6 (0.1-1.2) X10*3/uL Eos # (Auto) 0.2 (0.0-0.4) X10*3/uL Baso # (Auto) 0.0 (0.0-0.2) X10*3/uL Abs Immat Gran (auto) 0.03 (0.00-0.03) X10*3/uL Absolute Neuts (auto) 6.1 (2.0-8.3) X10*3/uL Absolute Nucleated RBC 0.000 (0.0-0.012) X10*3/uL Nucleated RBC % (auto) 0.0 (0.0-0.2) /100WBC PT 12.8 (9.9-13.0) SEC Whole Blood PT (11.1-13.5) sec INR 1.1 (0.9-1.1) Whole Blood INR (0.9-1.1) APTT 34.4 (24.1-38.0) SEC Sodium (135-145) mmol/L Potassium (3.3-5.1) mmol/L Chloride (96-108) mmol/L Carbon Dioxide (22-29) mmol/L Anion Gap (12-20) BUN (9-16) mg/dL Creatinine (0.5-1.4) mg/dL Estim Creat Clear Calc Estimated GFR POC Glucose 101 (60-115) mg/dL Random Glucose (60-115) mg/dL Calcium (8.4-10.2) mg/dL Total Bilirubin (0.0-1.0) mg/dL AST (5-31) U/L ALT (0-31) U/L Alkaline Phosphatase (39-117) U/L Troponin I High Sens (<3.5-17.0) ng/L Total Protein (6.5-8.0) g/dL Albumin (3.5-5.0) g/dL COVID-19 (MICHELLE) (Negative) COVID-19 Clin Com 04/18/21 04/18/21 04/18/21 Range/Units 09:29 09:29 09:40 WBC (4.8-10.8) X10*3/uL RBC (4.20-5.50) X10*6/uL Hgb (12.0-16.0) g/dl Hct (37-47) % MCV (80-98) fL MCH (27.0-33.0) pg MCHC (31.0-35.0) g/dl RDW (11.0-16.0) % Plt Count (160-400) X10*3/uL MPV (9.4-12.3) fL Immature Gran % (Auto) (0.0-0.4) % Neut % (Auto) (45-73) % Lymph % (Auto) (20-40) % [place] % (Auto) (2-11) % Eos % (Auto) (0-4) % Baso % (Auto) (0-2) % Lymph # (Auto) (1.2-4.9) X10*3/uL [place] # (Auto) (0.1-1.2) X10*3/uL Eos # (Auto) (0.0-0.4) X10*3/uL Baso # (Auto) (0.0-0.2) X10*3/uL Abs Immat Gran (auto) (0.00-0.03) X10*3/uL Absolute Neuts (auto) (2.0-8.3) X10*3/uL Absolute Nucleated RBC (0.0-0.012) X10*3/uL Nucleated RBC % (auto) (0.0-0.2) /100WBC PT (9.9-13.0) SEC Whole Blood PT 12.6 (11.1-13.5) sec INR (0.9-1.1) Whole Blood INR 1.0 (0.9-1.1) APTT (24.1-38.0) SEC Sodium 135 (135-145) mmol/L Potassium 3.7 (3.3-5.1) mmol/L Chloride 98 (96-108) mmol/L Carbon Dioxide 30 H (22-29) mmol/L Anion Gap 11 L (12-20) BUN 16 (9-16) mg/dL Creatinine 0.73 (0.5-1.4) mg/dL Estim Creat Clear Calc 96.1 Estimated GFR > 60 POC Glucose (60-115) mg/dL Random Glucose 80 (60-115) mg/dL Calcium 8.8 (8.4-10.2) mg/dL Total Bilirubin < 0.2 (0.0-1.0) mg/dL AST 17 (5-31) U/L ALT 25 (0-31) U/L Alkaline Phosphatase 112 (39-117) U/L Troponin I High Sens < 3.5 (<3.5-17.0) ng/L Total Protein 7.2 (6.5-8.0) g/dL Albumin 3.8 (3.5-5.0) g/dL COVID-19 (MICHELLE) (Negative) COVID-19 Clin Com 04/18/21 Range/Units 16:27 WBC (4.8-10.8) X10*3/uL RBC (4.20-5.50) X10*6/uL Hgb (12.0-16.0) g/dl Hct (37-47) % MCV (80-98) fL MCH (27.0-33.0) pg MCHC (31.0-35.0) g/dl RDW (11.0-16.0) % Plt Count (160-400) X10*3/uL MPV (9.4-12.3) fL Immature Gran % (Auto) (0.0-0.4) % Neut % (Auto) (45-73) % Lymph % (Auto) (20-40) % [place] % (Auto) (2-11) % Eos % (Auto) (0-4) % Baso % (Auto) (0-2) % Lymph # (Auto) (1.2-4.9) X10*3/uL [place] # (Auto) (0.1-1.2) X10*3/uL Eos # (Auto) (0.0-0.4) X10*3/uL Baso # (Auto) (0.0-0.2) X10*3/uL Abs Immat Gran (auto) (0.00-0.03) X10*3/uL Absolute Neuts (auto) (2.0-8.3) X10*3/uL Absolute Nucleated RBC (0.0-0.012) X10*3/uL Nucleated RBC % (auto) (0.0-0.2) /100WBC PT (9.9-13.0) SEC Whole Blood PT (11.1-13.5) sec INR (0.9-1.1) Whole Blood INR (0.9-1.1) APTT (24.1-38.0) SEC Sodium (135-145) mmol/L Potassium (3.3-5.1) mmol/L Chloride (96-108) mmol/L Carbon Dioxide (22-29) mmol/L Anion Gap (12-20) BUN (9-16) mg/dL Creatinine (0.5-1.4) mg/dL Estim Creat Clear Calc Estimated GFR POC Glucose (60-115) mg/dL Random Glucose (60-115) mg/dL Calcium (8.4-10.2) mg/dL Total Bilirubin (0.0-1.0) mg/dL AST (5-31) U/L ALT (0-31) U/L Alkaline Phosphatase (39-117) U/L Troponin I High Sens (<3.5-17.0) ng/L Total Protein (6.5-8.0) g/dL Albumin (3.5-5.0) g/dL COVID-19 (MICHELLE) Negative (Negative) COVID-19 Clin Com See Note ECG Data Interpretation: Normal sinus rhythm. Normal EKG. Ventricular rate 73. Pr interval 176. QRS 84. QTC 440. Negative STEMI Discharge Plan Discharge Clinical Impression: Seizures Patient Disposition: Admitted As Inpatient
[2021-04-18 09:32] LABS: MANUAL DIFF FLAG NO
[2021-04-18 09:34] LABS: Basophils Percent Auto 0.4 % (0-2); Eosinophils Absolute Auto 0.2 X10*3/uL (0.0-0.4); Eosinophils Percent Auto 1.8 % (0-4); Hematocrit 32.2 % (37-47); Hemoglobin 10.7 g/dl (12.0-16.0); Imm Gran Abs Auto 0.03 X10*3/uL (0.00-0.03); Imm Gran Pct Auto 0.4 % (0.0-0.4); Lymphocytes Absolute Auto 1.3 X10*3/uL (1.2-4.9); Lymphocytes Percent Auto 15.7 % (20-40); Mean Corpuscular HGB Conc 33.2 g/dl (31.0-35.0); Mean Corpuscular Volume 93.3 fL (80-98); Mean Platelet Volume 8.8 fL (9.4-12.3); Monocytes Absolute Auto 0.6 X10*3/uL (0.1-1.2); Monocytes Percent Auto 7.4 % (2-11); Neutrophils Absolute Auto 6.1 X10*3/uL (2.0-8.3); Neutrophils Percent Auto 74.3 % (45-73); Platelet Count 194 X10*3/uL (160-400); Red Blood Count 3.45 X10*6/uL (4.20-5.50); Red Cell Distribution Width 13.7 % (11.0-16.0); White Blood Count 8.2 X10*3/uL (4.8-10.8)
[2021-04-18 09:34] LABS: Glucose, Whole Blood 101 mg/dL (60-115)
[2021-04-18] MEDS: 0.9 % Sodium Chloride 1,000 ML 999 ML IV (09:44)
--- NOTE | 2021-04-18 09:47 | PC.NURSE ---
IV placed to left AC, bloodwork obtained ands sent to lab. POC glucose and INR obtained as well as EKG and brain CT. Pt awaiting disposition at this time. VSS.
[2021-04-18 09:49] LABS: INTERNATIONAL NORM RATIO 1.1 (0.9-1.1); Prothrombin Time 12.8 SEC (9.9-13.0)
[2021-04-18 09:52] LABS: Partial Thromboplastin Time 34.4 SEC (24.1-38.0)
[2021-04-18 10:09] LABS: Alanine Aminotransferase 25 U/L (0-31); Albumin Level 3.8 g/dL (3.5-5.0); Alkaline Phosphatase 112 U/L (39-117); Anion Gap 11 (12-20); Aspartate Amino Transferase 17 U/L (5-31); Bilirubin Total < 0.2 mg/dL (0.0-1.0); Blood Urea Nitrogen 16 mg/dL (9-16); Calcium 8.8 mg/dL (8.4-10.2); Carbon Dioxide 30 mmol/L (22-29); Chloride 98 mmol/L (96-108); Creatinine Clr Calc Pharmacy 96.1; Estimated Glomerular Filt Rate > 60; Glucose Random 80 mg/dL (60-115); Potassium 3.7 mmol/L (3.3-5.1); Sodium 135 mmol/L (135-145); Total Protein 7.2 g/dL (6.5-8.0)
[2021-04-18 10:10] LABS: Troponin-I High Sensitivity < 3.5 ng/L (<3.5-17.0)
--- NOTE | 2021-04-18 12:11 | PC.NURSE ---
Pt resting quietly. VSS. Awaiting disposition/plan from PA
[2021-04-18 12:43] LABS: Prothrombin Time Whole Bld POC 12.6 sec (11.1-13.5)
--- NOTE | 2021-04-18 15:49 | PC.NURSE ---
VSS. Pt resting in bed quietly. Pt is wakeful with tactile/verbal stimuli.
[2021-04-18 16:51] LABS: COVID-19 Test Negative (Negative); IDNOW Serial# 9DD0AD1C
--- NOTE | 2021-04-18 17:53 | PHA.MEDREC ---
Pharmacy Consult ? Medication Reconciliation Pharmacy has completed the medication reconciliation. Patient not able to talk. Daughter was at work and did not have medication list. Talked with Dr. Cordero was able to verify her seizure medication however he was unsure of which pysch medication she takes. Her claim history was very recent, so I complete med rec based on claim history. Patient's daughter brought in all medication bottles which verified that the claim history is accurate. Minerva Holland, PharmD
--- NOTE | 2021-04-18 17:57 | PM.IMHP ---
History of Present Illness Date of Service: 04/18/21 Chief Complaint: seizure 55yo F patient of Dr Brennan with refractory seizure disorder, status post vagal nerve stimulator and craniotomy. She is currently on cenobamate, cloabzam, eslicarbazepine, and phenobarbital but per her daughter and her neurologist, Dr Cordero at [facility], with whom the ED provider spoke, she is not very compliant with her seizure medications due to underlying psychiatric disorder. In fact, her daughter recently checked her medication boxes and they were full. She was found down on the ground and unresponsive by her family around 8:15am this am. EMS arrived her to find right-sided facial droop and right pronator drift. She was dysarthric. The ED provider consulted Dr Hernandez, our neurologist, and her presentation was thought most consistent with seizure due to medication non-compliance rather than a CVA. Dr Cordero did not believe the patient required transfer to [facility], but recommended we admit the patient and re-initiate her antiepileptic regimen. Notably, she is undergoing PT for a right humeral fracture sustained in October due to a breakthrough seizure. Despite trying to take this history in her [place] language, [place]ian, the patient was mumbling and dysarthric and difficult to understand. Per her daughter, from whom I obtained this history, this is her baseline. She does ambulate independently but requires assistance to take medications and prepare food and dress herself. Review of Systems Review of Systems: Yes Unobtainable due to mental status PMFSH Medical History Encephalomalacia Epilepsy Expressive aphasia Hyponatremia Hypotension Pre-op evaluation Pre-op examination Screening for cervical cancer Seizures Unsteady gait Urge urinary incontinence Family History Father Heart problem Mother Diabetes Low blood pressure Surgical History H/O prior ablation treatment History of section History of skin graft History of tubal ligation History of tumor Surgical history unknown Social History Alcohol intake: never Patient Tobacco Use Status: Never used Tobacco Use of substances other than those prescribed or required for medical reasons: No Advance Directives: Yes Advance Directives Information Provided: No Advance Directives on File: No Patient : No Current occupational status: unemployed Meds Allergies Allergy/AdvReac Type Severity Reaction Status Date / Time Iodinated Contrast Media Allergy Intermediate RED ALL Verified 03/30/21 09:06 [IV Dye, Iodine Containing] OVER NAUSEA AND LOST RESPIRATIONS Penicillins [PENICILLINS] Allergy Intermediate Unknown Verified 03/30/21 09:06 phenytoin [From Dilantin] Allergy Intermediate gum Verified 03/30/21 09:06 swelling Active Medications: Current Medications Generic Name Dose Route Start Last Admin Trade Name Freq PRN Reason Stop Dose Admin Acetaminophen 650 mg 04/18/21 17:53 Acetaminophen 325 Mg Tablet PO Q6H PRN Pain, Mild (Pain Scale 1-3) Enoxaparin Sodium 40 mg 04/18/21 18:00 Enoxaparin Sodium 40 Mg/0.4 Ml Syringe SUBCUT Q24H DONTE Non-Formulary Medication 300 mg 04/18/21 18:00 Cenobamate [Xcopri] PO DAILY DONTE Non-Formulary Medication 20 mg 04/18/21 18:00 Citalopram PO DAILY DONTE Non-Formulary Medication 10 mg 04/18/21 21:00 Clobazam PO BID DONTE Non-Formulary Medication 20 mg 04/18/21 21:00 Dicyclomine PO TID DONTE Non-Formulary Medication 600 mg 04/18/21 21:00 Eslicarbazepine [Aptiom] PO BID DONTE Non-Formulary Medication 2 tab 04/18/21 21:00 Phenobarbital PO BEDTIME DONTE Ondansetron HCl 4 mg 04/18/21 17:53 Ondansetron Hcl 4 Mg/2 Ml Vial IVPUSH Q8H PRN Nausea and Vomiting Pharmacy Consult 1 each 04/18/21 16:11 Consult Rx Perform Med Rec MISCELLANE 04/18/21 16:12 STAT STA Risperidone 1 mg 04/18/21 21:00 Risperidone 1 Mg Tablet PO BEDTIME DONTE Sodium Chloride 3 ml 04/19/21 00:00 0.9 % Sodium Chloride Flush 3 Ml Syringe IVFLUSH QSHIFT DONTE Sucralfate 2 gm 04/18/21 18:00 Sucralfate 1 Gm Tablet PO DAILY [facility] Home Medications Medication Instructions Recorded Confirmed Last Taken Type cenobamate [Xcopri] 300 mg PO DAILY 09/28/20 04/18/21 Unknown History clobazam 10 mg PO BID 09/28/20 04/18/21 Unknown History phenobarbital 2 tab PO BEDTIME 09/28/20 04/18/21 Unknown History eslicarbazepine 600 mg tablet 600 mg PO BID tab 11/04/20 04/18/21 Unknown History risperidone 1 mg tablet 1 mg PO BEDTIME 11/04/20 04/18/21 Unknown History citalopram 20 mg tablet 20 mg PO DAILY 02/08/21 04/18/21 Unknown History Physical Exam Vital Signs and Narrative: Vital Signs: Last Vital Signs Pulse 75 04/18/21 15:48 Resp 12 04/18/21 15:48 BP 129/85 04/18/21 15:48 Pulse Ox 99 04/18/21 15:48 Body Mass Index 36.0 Gen: in no acute distress, alert but difficult to understand in her [place] language HEENT: sclera anicteric, moist mucus membranes Neck: supple Lungs: clear to auscultation bilaterally Heart: regular rate and rhythm, no murmurs Abd: soft, non-tender, non-distended Ext: no edema Skin: warm/well-perfused Neuro: alert, dysarthric, no pronator drift, no leg weakness Psych: imparied insight Results Labs CBC and Chem 7: 04/18/21 09:29 04/18/21 09:29 Labs: Laboratory Results - last 24 hr 04/18/21 04/18/21 04/18/21 09:25 09:28 09:29 MCV 93.3 MCH 31.0 MCHC 33.2 RDW 13.7 Plt Count 194 MPV 8.8 L Immature Gran % (Auto) 0.4 Neut % (Auto) 74.3 H Lymph % (Auto) 15.7 L Moca % (Auto) 7.4 Eos % (Auto) 1.8 Baso % (Auto) 0.4 Lymph # (Auto) 1.3 Moca # (Auto) 0.6 Eos # (Auto) 0.2 Baso # (Auto) 0.0 Abs Immat Gran (auto) 0.03 Absolute Neuts (auto) 6.1 Absolute Nucleated RBC 0.000 Nucleated RBC % (auto) 0.0 PT 12.8 Whole Blood PT INR 1.1 Whole Blood INR APTT 34.4 Anion Gap Estim Creat Clear Calc Estimated GFR POC Glucose 101 Random Glucose Calcium Total Bilirubin AST ALT Alkaline Phosphatase Troponin I High Sens Total Protein Albumin COVID-19 ([facility]) COVID-19 Clin Com 04/18/21 04/18/21 04/18/21 09:29 09:29 09:40 MCV MCH MCHC RDW Plt Count MPV Immature Gran % (Auto) Neut % (Auto) Lymph % (Auto) Moca % (Auto) Eos % (Auto) Baso % (Auto) Lymph # (Auto) Moca # (Auto) Eos # (Auto) Baso # (Auto) Abs Immat Gran (auto) Absolute Neuts (auto) Absolute Nucleated RBC Nucleated RBC % (auto) PT Whole Blood PT 12.6 INR Whole Blood INR 1.0 APTT Anion Gap 11 L Estim Creat Clear Calc 96.1 Estimated GFR > 60 POC Glucose Random Glucose 80 Calcium 8.8 Total Bilirubin < 0.2 AST 17 ALT 25 Alkaline Phosphatase 112 Troponin I High Sens < 3.5 Total Protein 7.2 Albumin 3.8 COVID-19 (MICHELLE) COVID-19 Clin Com 04/18/21 16:27 MCV MCH MCHC RDW Plt Count MPV Immature Gran % (Auto) Neut % (Auto) Lymph % (Auto) Moca % (Auto) Eos % (Auto) Baso % (Auto) Lymph # (Auto) Moca # (Auto) Eos # (Auto) Baso # (Auto) Abs Immat Gran (auto) Absolute Neuts (auto) Absolute Nucleated RBC Nucleated RBC % (auto) PT Whole Blood PT INR Whole Blood INR APTT Anion Gap Estim Creat Clear Calc Estimated GFR POC Glucose Random Glucose Calcium Total Bilirubin AST ALT Alkaline Phosphatase Troponin I High Sens Total Protein Albumin COVID-19 ([facility]HELLE) Negative COVID-19 Clin Com See Note Imaging Radiologist's Impressions: Impressions Head CT 04/18/21 09:25 IMPRESSION: No acute findings. 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 This critical result was discussed with chucho Whiteside at 0950 hours on 04/18/2021. It was ascertained that the content and urgency of the report was understood at the time of direct communication. Assessment and Plan (1) Seizures: Status: Acute 55yo F with refractory seizure disorder, status post vagal nerve stimulator and craniotomy, currently on cenobamate, cloabzam, eslicarbazepine, and phenobarbital, presenting after found down altered with dysarthria and with right-sided facial droop and pronator drift (resolved) likely Sj's paralysis from a seizure due to medication noncompliance. # seizure - admit to [facility]. resume cenobamate, cloabzam, eslicarbazepine, phenobarbital; family informed to bring in medications to home. neurology + psychiatry consults specifically trying to decrease barriers to pt's medication adherence [daughter says the pt has some delusions about the medications causing her harm] # mood disorder - continue risperidone, citalopram. psychiatry consult as above # humerus fx, present on admission - resume outpt PT upon d/c # VTE ppx - [facility] # code - FULL Quality Stroke Does the patient have a stroke diagnosis?: No VTE Prior VTE?: No VTE Risk Level:: Medical - moderate - high VTE Device Contraindication: N/A - Device Ordered VTE Drug Contraindication: N/A - Med Ordered
--- NOTE | 2021-04-18 19:30 | PC.NURSE ---
THIS NURSE ASSISTED PT TO BATHROOM. AMBULATION SLOW BUT STEADY WITH MINIMAL ASSIST. PT ABLE TO TOILET AND CLEAN HERSELF WITHOUT ISSUE. THIS NURSE ASSISTED PT BACK TO BED. PT NOW BACK IN BED, BED LINENS REMAIN CLEAN AND DRY. WARM BLANKET GIVEN. CALL MARIA IN REACH.
--- NOTE | 2021-04-18 19:45 | PC.NURSE ---
PT MEDICATIONS THAT WERE BROUGHT BY FAMILY BROUGHT TO PHARMACY BY THIS NURSE FOR VERIFICATION
[2021-04-18] MEDS: risperiDONE 1 MG TABLET PO (20:30)
[2021-04-18] MEDS: Dicyclomine HCl 10 MG CAPSULE 20 MG PO (20:31)
[2021-04-18] MEDS: Sucralfate 1 GM TABLET 2 GM PO (20:32)
[2021-04-18] MEDS: Enoxaparin Sodium 40 MG/0.4 ML SYRINGE SUBCUT (20:36)
--- NOTE | 2021-04-18 22:38 | MHC.CM.PN ---
CM attempted to meet with patient, but speech unintelligible. Call to HCP/daughter Hamida Jackson ([phone]). IMM reviewed and completed per protocol with Hamida on telephone. Copy left with pt belongings. HCP is on file. PCP is Lara Rivas. Pt lives with daughter Hamida. Has [employer] services 17 hours/week from [facility]. Family assists pt also. Pt is receiving PT outpatient services at [facility]. D/C plan is home with resumption of services. To continue with Outpatient PT. Family to transport home. CM to follow for d/c needs.
[2021-04-19] VITALS (8 sets, daily range): BP systolic 108–170; BP diastolic 63–92; PULSE 57–73; RESP 17–20; TEMP 36.3–37; O2SAT 96–99; BMI 36.8
[2021-04-19] MEDS: cloBAZam 10 MG TABLET PO ×3 (00:01→21:51)
[2021-04-19] MEDS: 0.9 % Sodium Chloride Flush 3 ML SYRINGE IVFLUSH ×4 (00:08→21:51)
--- NOTE | 2021-04-19 00:43 | PC.NURSE ---
nurse to nurse report given to Yin PAYAN
[2021-04-19] MEDS: Escitalopram Oxalate 10 MG TABLET PO (08:34)
[2021-04-19] MEDS: Dicyclomine HCl 10 MG CAPSULE 20 MG PO ×3 (08:34→21:50)
[2021-04-19] MEDS: Sucralfate 1 GM TABLET 2 GM PO (08:34)
--- NOTE | 2021-04-19 14:46 | P.PNIM_ITS ---
Subjective Subjective Date of Service: 04/19/21 Interval History: No further seizures Lethargic, slurred speech. Unclear how far she is from her baseline. She does respond minimally to simple questions in [place]. She denies pain but does endorse depression. Physical Exam Vital Signs: Vital Signs: Last Vital Signs Temp 97.3 F 04/19/21 11:28 Pulse 57 04/19/21 11:28 Resp 20 04/19/21 11:28 BP 108/63 04/19/21 11:28 Pulse Ox 99 04/19/21 11:28 Body Mass Index 36.8 Gen: somnolent but arousable HEENT: sclera anicteric, moist mucus membranes Neck: supple Lungs: clear to auscultation bilaterally Heart: regular rate and rhythm, no murmurs Abd: soft, non-tender, non-distended Ext: no edema Skin: warm/well-perfused Neuro: dysarthric, no pronator drift, no leg weakness Psych: impaired insight Objective Data Current Medications Generic Name Dose Route Start Last Admin Trade Name Surekha PRN Reason Stop Dose Admin Acetaminophen 650 mg 04/18/21 17:53 Acetaminophen 325 Mg Tablet PO Q6H PRN Pain, Mild (Pain Scale 1-3) Clobazam 10 mg 04/18/21 21:00 04/19/21 08:34 Clobazam 10 Mg Tablet PO 10 mg BID DONTE Administration Dicyclomine HCl 20 mg 04/18/21 21:00 04/19/21 08:34 Dicyclomine Hcl 10 Mg Capsule PO 20 mg TID DONTE Administration Enoxaparin Sodium 40 mg 04/18/21 18:00 04/18/21 20:36 Enoxaparin Sodium 40 Mg/0.4 Ml Syringe SUBCUT 40 mg Q24H DONTE Administration Escitalopram Oxalate 10 mg 04/19/21 09:00 04/19/21 08:34 Escitalopram Oxalate 10 Mg Tablet PO 10 mg DAILY DONTE Administration Patient Own 1.5 each 04/19/21 09:00 04/19/21 08:33 Medication ( PO 1.5 each Cenobamate [Xcopri] DAILY DONTE Administration 200 Mg Tablet) Patient Own 1 each 04/18/21 21:00 04/19/21 08:34 Medication ( PO 1 each Eslicarbazepine [ BID DONTE Administration Aptiom] 600 Mg Tablet) Patient Own 2 each 04/18/21 21:00 04/19/21 00:04 Medication ( PO 2 each Phenobarbital 64.8 BEDTIME DONTE Administration Mg Tablet) Protocol Ondansetron HCl 4 mg 04/18/21 17:53 Ondansetron Hcl 4 Mg/2 Ml Vial IVPUSH Q8H PRN Nausea and Vomiting Risperidone 1 mg 04/18/21 21:00 04/18/21 20:30 Risperidone 1 Mg Tablet PO 1 mg BEDTIME DONTE Administration Sodium Chloride 3 ml 04/19/21 00:00 04/19/21 08:34 0.9 % Sodium Chloride Flush 3 Ml Syringe IVFLUSH 3 ml QSHIFT DONTE Administration Sucralfate 2 gm 04/18/21 18:00 04/19/21 08:34 Sucralfate 1 Gm Tablet PO 2 gm DAILY DONTE Administration Labs CBC & Chem 7: 04/18/21 09:29 04/18/21 09:29 Labs: Laboratory Results - last 24 hr 04/18/21 04/18/21 04/18/21 09:25 09:40 16:27 Whole Blood PT 12.6 Whole Blood INR 1.0 POC Glucose 101 COVID-19 (MICHELLE) Negative COVID-19 Clin Com See Note Assessment and Plan (1) Seizures: Status: Acute Assessment and Plan: hospital d#2 55yo F with severe refractory seizure disorder, status post vagal nerve stimulator and craniotomy, currently on cenobamate, cloabzam, eslicarbazepine, and phenobarbita presenting after found down altered with dysarthria and with right-sided facial droop and pronator drift (resolved) likely Sj's paralysis from a seizure due to medication noncompliance, which in turn, is likely due to her uncontrolled mood disorder # seizure - resumed cenobamate, cloabzam, eslicarbazepine, phenobarbital. pt's neurologist at [facility] was notified yesterday by ED provider and no medication changes are recommended; just making sure she is compliant # mood disorder - continue risperidone, citalopram. psychiatry consult requested as her uncontrolled mood issues and possible psychosis/delusions are interfering with her compliance with her antiepileptic regimen. frequent admissions to [facility] and may require inpt psych. # humerus fx, present on admission - resume outpt PT upon d/c # VTE ppx - [facility] Quality Stroke Does the patient have a stroke diagnosis?: No VTE Prior VTE?: No VTE Risk Level:: Medical - moderate - high VTE Device Contraindication: N/A - Device Ordered VTE Drug Contraindication: N/A - Med Ordered
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
[2021-04-19] MEDS: Enoxaparin Sodium 40 MG/0.4 ML SYRINGE SUBCUT (17:06)
[2021-04-19] MEDS: risperiDONE 1 MG TABLET PO (21:51)
[2021-04-20 04:00] VITALS: BP 138/77; PULSE 64; RESP 20; TEMP 36.4; O2SAT 97
[2021-04-20 07:15] VITALS: BP 140/81; PULSE 62; RESP 20; TEMP 36.4; O2SAT 99
[2021-04-20] MEDS: Escitalopram Oxalate 10 MG TABLET PO (09:25)
[2021-04-20] MEDS: cloBAZam 10 MG TABLET PO ×2 (09:25→20:52)
[2021-04-20] MEDS: Sucralfate 1 GM TABLET 2 GM PO (09:25)
[2021-04-20] MEDS: Dicyclomine HCl 10 MG CAPSULE 20 MG PO ×3 (09:25→20:52)
[2021-04-20] MEDS: 0.9 % Sodium Chloride Flush 3 ML SYRINGE IVFLUSH ×3 (09:25→20:53)
[2021-04-20 11:18] VITALS: BP 128/73; PULSE 61; RESP 18; TEMP 36.6; O2SAT 96
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
[2021-04-20 15:36] VITALS: BP 108/72; PULSE 66; RESP 18; TEMP 36.9; O2SAT 98
--- NOTE | 2021-04-20 15:50 | P.PNIM_ITS ---
Subjective Subjective Date of Service: 04/20/21 Interval History: very minimally responsive though observed to ambulate to bathroom and take care of her needs no seizures ROS limited by pt's psychiatric condition Physical Exam Vital Signs: Vital Signs: Last Vital Signs Temp 98.5 F 04/20/21 15:36 Pulse 66 04/20/21 15:36 Resp 18 04/20/21 15:36 BP 108/72 04/20/21 15:36 Pulse Ox 98 04/20/21 15:36 Body Mass Index 36.8 Gen: somnolent but arousable HEENT: sclera anicteric, moist mucus membranes Neck: supple Lungs: clear to auscultation bilaterally Heart: regular rate and rhythm, no murmurs Abd: soft, non-tender, non-distended Ext: no edema Skin: warm/well-perfused Neuro: dysarthric, no pronator drift, no leg weakness Psych: impaired insight Objective Data Current Medications Generic Name Dose Route Start Last Admin Trade Name Freq PRN Reason Stop Dose Admin Acetaminophen 650 mg 04/18/21 17:53 Acetaminophen 325 Mg Tablet PO Q6H PRN Pain, Mild (Pain Scale 1-3) Clobazam 10 mg 04/18/21 21:00 04/20/21 09:25 Clobazam 10 Mg Tablet PO 10 mg BID DONTE Administration Dicyclomine HCl 20 mg 04/18/21 21:00 04/20/21 14:18 Dicyclomine Hcl 10 Mg Capsule PO 20 mg TID DONTE Administration Enoxaparin Sodium 40 mg 04/18/21 18:00 04/19/21 17:06 Enoxaparin Sodium 40 Mg/0.4 Ml Syringe SUBCUT 40 mg Q24H DONTE Administration Escitalopram Oxalate 10 mg 04/19/21 09:00 04/20/21 09:25 Escitalopram Oxalate 10 Mg Tablet PO 10 mg DAILY DONTE Administration Patient Own 1.5 each 04/19/21 09:00 04/20/21 09:26 Medication ( PO 1.5 each Cenobamate [Xcopri] DAILY DONTE Administration 200 Mg Tablet) Patient Own 1 each 04/18/21 21:00 04/20/21 09:26 Medication ( PO 1 each Eslicarbazepine [ BID DONTE Administration Aptiom] 600 Mg Tablet) Patient Own 2 each 04/18/21 21:00 04/19/21 22:17 Medication ( PO 2 each Phenobarbital 64.8 BEDTIME DONTE Administration Mg Tablet) Protocol Ondansetron HCl 4 mg 04/18/21 17:53 Ondansetron Hcl 4 Mg/2 Ml Vial IVPUSH Q8H PRN Nausea and Vomiting Risperidone 1 mg 04/18/21 21:00 04/19/21 21:51 Risperidone 1 Mg Tablet PO 1 mg BEDTIME DONTE Administration Sodium Chloride 3 ml 04/19/21 00:00 04/20/21 14:19 0.9 % Sodium Chloride Flush 3 Ml Syringe IVFLUSH 3 ml QSHIFT DONTE Administration Sucralfate 2 gm 04/18/21 18:00 04/20/21 09:25 Sucralfate 1 Gm Tablet PO 2 gm DAILY DONTE Administration Labs CBC & Chem 7: 04/18/21 09:29 04/18/21 09:29 Assessment and Plan (1) Seizures: Status: Acute Assessment and Plan: hospital d#3 55yo F with severe refractory seizure disorder, status post vagal nerve stimulator and craniotomy, currently on cenobamate, cloabzam, eslicarbazepine, and phenobarbital presenting after found down altered with dysarthria and with right-sided facial droop and pronator drift (resolved) likely Sj's paralysis from a seizure due to medication noncompliance, which in turn, is likely due to her uncontrolled mood disorder # seizure - resumed cenobamate, cloabzam, eslicarbazepine, phenobarbital. pt's neurologist at [facility] was notified by ED provider and no medication changes are recommended; just making sure she is compliant, which involves adressing her psychiatric disorder # mood disorder - continue risperidone, citalopram. psychiatry consult re uncontrolled mood issues and possible psychosis/delusions are interfering with her compliance with her antiepileptic regimen. frequent admissions to and at this point I believe she requires inpatient psychiatry; she is medically cleared # humerus fx, present on admission - resume outpt PT upon d/c # VTE ppx - LMWH Quality Stroke Does the patient have a stroke diagnosis?: No VTE Prior VTE?: No VTE Risk Level:: Medical - moderate - high VTE Device Contraindication: N/A - Device Ordered VTE Drug Contraindication: N/A - Med Ordered
[2021-04-20] MEDS: Enoxaparin Sodium 40 MG/0.4 ML SYRINGE SUBCUT (17:20)
--- NOTE | 2021-04-20 17:55 | P.DS_ITS ---
DS: Providers Provider Date of Service: 03/22/21 <Rashard Schneider MD - Last Filed: 04/21/21 13:56> Date of admission: 04/18/21 17:53 <Venus Jang MD - Last Filed: 05/17/21 14:52> Primary care physician: Lara Rivas MD <Venus Jang MD - Last Filed: 05/17/21 14:52> Consults: 04/18/21 17:53 Consult to Neurology Routine Consulting Provider: [facility] Reason for consultation: seizure breakthrough- med noncompliance 04/18/21 18:07 Consult to Psychiatry Routine Consulting Provider: Psych Covering Reason for consultation: depresison/psychosis/delusions interfering with seizure med compliance 04/20/21 08:28 Consult to Crisis Stat Reason for consultation: inpt psych? Consult to Psychiatry Routine Consulting Provider: Psych Covering Reason for consultation: not taking her sz meds due to uncontrolle ddepression 04/20/21 15:55 Consult to Care Team Stat Comment: Reason for consultation: inpt psych; medicall cleared 04/20/21 15:56 Consult to Crisis Stat Reason for consultation: inpt psych; medicall cleared <Venus Jang MD - Last Filed: 05/17/21 14:52> DS: Diagnosis Discharge Diagnosis (1) Seizures: (2) Depression: DS: Medications Discharge Medications Home Medications: Home Medications Medication Instructions Recorded Confirmed cenobamate 200 mg tablet (Xcopri) 300 mg PO DAILY 09/28/20 04/18/21 clobazam 20 mg tablet 10 mg PO BID 09/28/20 04/18/21 phenobarbital 64.8 mg tablet 2 tab PO BEDTIME 09/28/20 04/18/21 eslicarbazepine 600 mg tablet 600 mg PO BID tab 11/04/20 04/18/21 (Aptiom) risperidone 1 mg tablet 1 mg PO BEDTIME 11/04/20 04/18/21 citalopram 20 mg tablet 20 mg PO DAILY 02/08/21 04/18/21 Previous Rx's Medication Instructions Recorded diaper,brief,adult,disposable #10 ea 11/24/20 dicyclomine 20 mg tablet 20 mg PO TID #90 tab 04/30/21 sucralfate 1 gram tablet 2 g PO DAILY 90 Days #180 tab 02/15/21 <Venus Jang MD - Last Filed: 05/17/21 14:52> DS: Summary Hospital Course Hospital Course: 55yo F patient of Dr Brennan with refractory seizure disorder, status post vagal nerve stimulator and craniotomy.? She is currently on cenobamate, cloabzam, eslicarbazepine, and phenobarbital but per her daughter and her neurologist, Dr Cordero at [facility], with whom the ED provider spoke, she is not very compliant with her seizure medications due to underlying psychiatric disorder.? In fact, her daughter recently checked her medication boxes and they were full.? She was found down on the ground and unresponsive by her family around 8:15am this am.? EMS arrived her to find right-sided facial droop and right pronator drift.? She was dysarthric.? The ED provider consulted Dr Hernandez, our neurologist, and her presentation was thought most consistent with seizure due to medication non-compliance rather than a CVA.? Dr Cordero did not believe the patient required transfer to [facility], but recommended we admit the patient and re-initiate her antiepileptic regimen.? Notably, she is undergoing PT for a right humeral fracture sustained in October due to a breakthrough seizure. Despite trying to take this history in her [place] language, Chinese, the patient was mumbling and dysarthric and difficult to understand.? Per her daughter, from whom I obtained this history, this is her baseline.? She does ambulate independently but requires assistance to take medications and prepare food and dress herself. She was admitted to the [facility] and her home antiepileptic regimen was restarted.? Seizures did not recur.? She had extremely restricted affect and psychiatry was consulted they recommend to continue home medication, she was seen by crisis team and patient did not meet criteria for Inpatient psychiatric treatment therefore she is being discharged home with family and recommended adherence with her medication regimen.? She should follow up with her primary care doctor, neurologist, and psychiatrist after discharge. Her physical examination remains unchanged in last 24 hours. <Venus Jang MD - Last Filed: 05/17/21 14:52> Time Spent with Patient Time attestation: Total time spent providing and/or coordinating discharge services: 35 <Venus Jang MD - Last Filed: 05/17/21 14:52> Discharge coordination time: Greater than 30 minutes <Venus Jang MD - Last Filed: 05/17/21 14:52> Quality: Stroke Does the patient have a stroke diagnosis?: No <Venus Jang MD - Last Filed: 05/17/21 14:52> Physical Exam Vital Signs: Vital Signs: Last Vital Signs Temp 98.5 F 04/20/21 15:36 Pulse 66 04/20/21 15:36 Resp 18 04/20/21 15:36 BP 108/72 04/20/21 15:36 Pulse Ox 98 04/20/21 15:36 Body Mass Index 36.8 Gen: somnolent but arousable HEENT: sclera anicteric, moist mucus membranes Neck: supple Lungs: clear to auscultation bilaterally Heart: regular rate and rhythm, no murmurs Abd: soft, non-tender, non-distended Ext: no edema Skin: warm/well-perfused Neuro: dysarthric, no pronator drift, no leg weakness Psych: impaired insight, extremely restricted affect <Venus Jang MD - Last Filed: 05/17/21 14:52> DS: Data Data Completed and Pending Completed studies during hospitalization [Text1]: Laboratory Results WBC 8.2 X10*3/uL (4.8-10.8) 04/18/21 09:29 RBC 3.45 X10*6/uL (4.20-5.50) L 04/18/21 09:29 Hgb 10.7 g/dl (12.0-16.0) L 04/18/21 09:29 Hct 32.2 % (37-47) L 04/18/21 09:29 MCV 93.3 fL (80-98) 04/18/21 09:29 MCH 31.0 pg (27.0-33.0) 04/18/21 09:29 MCHC 33.2 g/dl (31.0-35.0) 04/18/21 09:29 RDW 13.7 % (11.0-16.0) 04/18/21 09:29 Plt Count 194 X10*3/uL (160-400) 04/18/21 09:29 MPV 8.8 fL (9.4-12.3) L 04/18/21 09:29 Immature Gran % (Auto) 0.4 % (0.0-0.4) 04/18/21 09: Neut % (Auto) 74.3 % (45-73) H 04/18/21 09: Lymph % (Auto) 15.7 % (20-40) L 04/18/21 09: Valencia % (Auto) 7.4 % (2-11) 04/18/21 09: Eos % (Auto) 1.8 % (0-4) 04/18/21 09: Baso % (Auto) 0.4 % (0-2) 04/18/21 09: Lymph # (Auto) 1.3 X10*3/uL (1.2-4.9) 04/18/21 09: Valencia # (Auto) 0.6 X10*3/uL (0.1-1.2) 04/18/21 09: Eos # (Auto) 0.2 X10*3/uL (0.0-0.4) 04/18/21 09:29 Baso # (Auto) 0.0 X10*3/uL (0.0-0.2) 04/18/21 09:29 Abs Immat Gran (auto) 0.03 X10*3/uL (0.00-0.03) 04/18/21 09: Absolute Neuts (auto) 6.1 X10*3/uL (2.0-8.3) 04/18/21 09: Absolute Nucleated RBC 0.000 X10*3/uL (0.0-0.012) 04/18/21 09: Nucleated RBC % (auto) 0.0 /100WBC (0.0-0.2) 04/18/21 09:29 PT 12.8 SEC (9.9-13.0) 04/18/21 09: Whole Blood PT 12.6 sec (11.1-13.5) 04/18/21 09:40 INR 1.1 (0.9-1.1) 04/18/21 09: Whole Blood INR 1.0 (0.9-1.1) 04/18/21 09:40 APTT 34.4 SEC (24.1-38.0) 04/18/21 09:28 Sodium 135 mmol/L (135-145) 04/18/21 09:29 Potassium 3.7 mmol/L (3.3-5.1) 04/18/21 09:29 Chloride 98 mmol/L (96-108) 04/18/21 09:29 Carbon Dioxide 30 mmol/L (22-29) H 04/18/21 09:29 Anion Gap 11 (12-20) L 04/18/21 09:29 BUN 16 mg/dL (9-16) 04/18/21 09:29 Creatinine 0.73 mg/dL (0.5-1.4) 04/18/21 09:29 Estim Creat Clear Calc 96.1 04/18/21 09:29 Estimated GFR > 60 04/18/21 09:29 POC Glucose 101 mg/dL (60-115) 04/18/21 09:25 Random Glucose 80 mg/dL (60-115) 04/18/21 09:29 Calcium 8.8 mg/dL (8.4-10.2) 04/18/21 09:29 Total Bilirubin < 0.2 mg/dL (0.0-1.0) 04/18/21 09:29 AST 17 U/L (5-31) 04/18/21 09:29 ALT 25 U/L (0-31) 04/18/21 09:29 Alkaline Phosphatase 112 U/L (39-117) 04/18/21 09:29 Troponin I High Sens < 3.5 ng/L (<3.5-17.0) 04/18/21 09:29 Total Protein 7.2 g/dL (6.5-8.0) 04/18/21 09:29 Albumin 3.8 g/dL (3.5-5.0) 04/18/21 09:29 COVID-19 (MICHELLE) Negative (Negative) 04/18/21 16:27 COVID-19 Clin Com See Note 04/18/21 16:[address] 04/18/21 09:25 IMPRESSION: No acute findings. 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 This critical result was discussed with chucho Whiteside at 0950 hours on 04/18/2021. It was ascertained that the content and urgency of the report was understood at the time of direct communication. Foot X-Ray 04/18/21 18:18 IMPRESSION: No acute significant abnormality is seen in either foot. <Venus Jang MD - Last Filed: 05/17/21 14:52> Discharge Plan Discharge Patient Disposition: Home, Self-Care <Venus Jang MD - Last Filed: 05/17/21 14:52> Discharge Diagnosis: seizure due to medication noncompliance due to uncontrolled depression <Venus Jang MD - Last Filed: 05/17/21 14:52> seizure due to medication noncompliance due to uncontrolled depression <Rashard Schneider MD - Last Filed: 04/21/21 13:56> Referrals: Lara Mercado MD [Primary Care Provider] - 1 Week <Venus Jang MD - Last Filed: 05/17/21 14:52> Discharge Medications: Continued dicyclomine 20 mg tablet 20 mg PO TID Qty: 90 RF: 6 sucralfate 1 gram tablet 2 g PO DAILY 90 Days Qty: 180 RF: 0 phenobarbital 64.8 mg tablet 2 tab PO BEDTIME RF: 0 clobazam 20 mg tablet 10 mg PO BID RF: 0 Xcopri 200 mg tablet 300 mg PO DAILY RF: 0 (DME) diaper,brief,adult,disposable Misc See Rx Instructions .ROUTE .MEDSUPPLY Qty: 10 RF: 0 Aptiom 600 mg tablet 600 mg PO BID RF: 0 risperidone 1 mg tablet 1 mg PO BEDTIME RF: 0 citalopram 20 mg tablet 20 mg PO DAILY RF: 0 No Action (DME) walker Misc See Rx Instructions .Route Qty: 1 RF: 0 <Venus Jang MD - Last Filed: 05/17/21 14:52> Discharge Orders: Discharge Order (Routine); Ordered 04/21/21 Ordered By: Rashard Schneider <Venus Jang MD - Last Filed: 05/17/21 14:52> Diet: advance to usual diet <Venus Jang MD - Last Filed: 05/17/21 14:52> advance to usual diet <Rashard Schneider MD - Last Filed: 04/21/21 13:56> Activity on Discharge: As tolerated <Venus Jang MD - Last Filed: 05/17/21 14:52> As tolerated <Rashard Schneider MD - Last Filed: 04/21/21 13:56> Stand Alone Forms: Patient Portal Discharge page <Venus Jang MD - Last Filed: 05/17/21 14:52> Care Plan Goals: control of seizures + mood disorder <Venus Jang MD - Last Filed: 05/17/21 14:52> Health Concerns: seizure due to medication noncompliance due to uncontrolled depression <Venus Jang MD - Last Filed: 05/17/21 14:52> Plan of Treatment: resume home antiepileptics as prescribed by neurologist psychiatric treatment <Venus Jang MD - Last Filed: 05/17/21 14:52> Assessment: as above <Venus Jang MD - Last Filed: 05/17/21 14:52> Patient Instructions: Epilepsy (DC) <Venus Jang MD - Last Filed: 05/17/21 14:52> Discharge Date/Time: 04/21/21 15:17 <Venus Jang MD - Last Filed: 05/17/21 14:52>
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
[2021-04-20 19:24] VITALS: BP 130/74; PULSE 62; RESP 18; TEMP 36.6; O2SAT 99
[2021-04-20] MEDS: risperiDONE 1 MG TABLET PO (20:52)
[2021-04-20 23:30] VITALS: BP 109/64; PULSE 63; RESP 18; TEMP 36.9; O2SAT 98
[2021-04-21 03:25] VITALS: PULSE 60; RESP 18; TEMP 36.8
[2021-04-21 03:44] VITALS: RESP 18
[2021-04-21 07:23] VITALS: BP 108/75; PULSE 64; RESP 16; TEMP 35.9; O2SAT 98
[2021-04-21] MEDS: Sucralfate 1 GM TABLET 2 GM PO (08:22)
[2021-04-21] MEDS: Dicyclomine HCl 10 MG CAPSULE 20 MG PO ×2 (08:22→14:24)
[2021-04-21] MEDS: 0.9 % Sodium Chloride Flush 3 ML SYRINGE IVFLUSH (08:22)
[2021-04-21] MEDS: Escitalopram Oxalate 10 MG TABLET PO (08:23)
[2021-04-21] MEDS: cloBAZam 10 MG TABLET PO (08:23)
[2021-04-21 10:54] VITALS: BP 104/63; PULSE 69; RESP 16; TEMP 36.1; O2SAT 99
--- NOTE | 2021-04-21 13:46 | MHC.CM.PN ---
JOSH SPOKE TO PTS DAUGHTER, NANO DIEHL [phone] AND INFORMED HER PT WAS CLEARED TO ND. SHE REPORTS SHE LIVES WITH THE PT AND SUPPLEMENTS HER [employer] C[employer]. SHE REPORTS PT ONLY HAS 17 HOURS OF [employer] SERVICES PER WEEK. NANO REPORTS SHE WILL TRANSPORT THE PT HOME. SHE IS CURRENTLY AT WORK BUT WILL TAKE A BREAK AT 1500 HOURS TO TRANSPORT PT.
== END 2021-04-21 15:17 | disposition home or self-care (01) | DRG 101 ==
LOC: HO.ED 17:10 → HO.EDOVER 18:02 → HO.IMC 23:59
PROVIDERS: Physician Assistant; Admitting Provider Family Medicine; Emergency Provider Internal Medicine; PCP Internal Medicine; Visit Provider Hospitalist
DX: G40.909 Epilepsy, unspecified, not intractable, without status epilepticus (principal); R47.01 Aphasia; F32.9 Major depressive disorder, single episode, unspecified; K21.9 Gastro-esophageal reflux disease without esophagitis; R26.81 Unsteadiness on feet; G93.89 Other specified disorders of brain; Z91.14 Patient's other noncompliance with medication regimen; Z96.82 Presence of neurostimulator; Z20.822 Contact with and (suspected) exposure to COVID-19; Z88.0 Allergy status to penicillin; Z79.899 Other long term (current) drug therapy
CPT/HCPCS: 36415; 70450; 73620; 80053; 82947; 84484; 85025; 85610; 85730; 87635; 93005; 97162; 99222; 99284; J1650

== ENCOUNTER 2021-06-14 08:50 | Outpatient (REF) | payer MEDICARE, MEDICAID, SELFPAY ==
[2021-06-14 10:02] LABS: MANUAL DIFF FLAG NO
[2021-06-14 10:12] LABS: Eosinophils Absolute Auto 0.1 X10*3/uL (0.0-0.4); Eosinophils Percent Auto 2.8 % (0-4); Hematocrit 35.2 % (37-47); Hemoglobin 11.3 g/dl (12.0-16.0); Imm Gran Abs Auto 0.01 X10*3/uL (0.00-0.03); Imm Gran Pct Auto 0.3 % (0.0-0.4); Lymphocytes Absolute Auto 1.2 X10*3/uL (1.2-4.9); Lymphocytes Percent Auto 29.6 % (20-40); Mean Corpuscular HGB Conc 32.1 g/dl (31.0-35.0); Mean Corpuscular Hemoglobin 30.5 pg (27.0-33.0); Mean Corpuscular Volume 95.1 fL (80-98); Mean Platelet Volume 9.6 fL (9.4-12.3); Monocytes Absolute Auto 0.4 X10*3/uL (0.1-1.2); Neutrophils Absolute Auto 2.2 X10*3/uL (2.0-8.3); Neutrophils Percent Auto 57.3 % (45-73); Platelet Count 235 X10*3/uL (160-400); Red Cell Distribution Width 13.7 % (11.0-16.0); White Blood Count 3.9 X10*3/uL (4.8-10.8)
[2021-06-14 10:36] LABS: Alanine Aminotransferase 28 U/L (0-31); Alkaline Phosphatase 142 U/L (39-117); Anion Gap 11 (12-20); Aspartate Amino Transferase 17 U/L (5-31); Bilirubin Total 0.4 mg/dL (0.0-1.0); Blood Urea Nitrogen 12 mg/dL (9-16); Calcium 9.1 mg/dL (8.4-10.2); Carbon Dioxide 28 mmol/L (22-29); Chloride 103 mmol/L (96-108); Estimated Glomerular Filt Rate > 60; Glucose Fasting 88 mg/dL (60-99); Potassium 4.9 mmol/L (3.3-5.1); Sodium 137 mmol/L (135-145); Total Protein 7.3 g/dL (6.5-8.0)
== END 2021-06-14 08:51 | disposition home or self-care (01) ==
LOC: HO.LAB 08:50
PROVIDERS: PCP Internal Medicine; Visit Provider Internal Medicine
DX: D64.9 Anemia, unspecified (principal); S42.209D Unspecified fracture of upper end of unspecified humerus, subsequent encounter for fracture with routine healing; E87.1 Hypo-osmolality and hyponatremia; G40.909 Epilepsy, unspecified, not intractable, without status epilepticus; Z79.899 Other long term (current) drug therapy
CPT/HCPCS: 36415; 80053; 80184; 85025

== ENCOUNTER → 2021-06-28 09:43 | Outpatient (BNVA) | payer MEDICARE, MEDICAID, SELFPAY | PROVIDERS: PCP Internal Medicine | DX: N32.81 Overactive bladder (principal); R32 Unspecified urinary incontinence | CPT/HCPCS: 51798; 99202 ==

== ENCOUNTER 2021-07-05 13:36 | Emergency (ER) | payer MEDICARE, MEDICAID, SELFPAY ==
--- NOTE | ~2021-07-05 | XR_ITS ---
EXAMINATION: XR SHOULDER, RIGHT CLINICAL INFORMATION: Fall, trauma, pain COMPARISON: Radiographs right shoulder 03/30/2021, 02/02/2021 TECHNIQUE: Right shoulder is imaged in 4 views. FINDINGS: There is mild posttraumatic deformity involving the surgical neck right humerus with interval healed fracture since prior radiographs. There is no visible acute radiolucent fracture line or fracture fragment. No destructive process. No dislocation. The acromioclavicular alignment is normal. No visible rotator cuff calcifications. Right lung apex shows no pneumothorax or pleural reaction. There is old healed fracture right posterior lateral fourth rib. XR/XR shoulder RT min 2V IMPRESSION: 1. Healed fractures proximal right humerus and right posterior lateral fourth rib. 2. No visible acute fracture or dislocation.
--- NOTE | ~2021-07-05 | CT_ITS ---
EXAMINATION: CT HEAD, CT CERVICAL SPINE AND CT FACIAL BONES WITHOUT CONTRAST. FALL. CLINICAL INFORMATION: Fall. COMPARISON: None TECHNIQUE: 5 mm thin axial and reformatted 2 mm thin sagittal and coronal images of brain were obtained. Axial 3 mm thin and reformatted 1.5 mm thin coronal and sagittal images of facial bones were obtained. Lastly axial 3 mm thin and reformatted 2 mm thin sagittal and coronal images of cervical spine were obtained. DLP [id number] FINDINGS: Brain: There is no acute intra-axial, extra-axial bleed, masses or midline shift. The left posterior temporal lobe encephalomalacia from old insult. There is no acute infarction evolution. No edema. The lateral ventricles are symmetrical in size and configuration except for mild prominence of the occipital horn left lateral ventricle secondary to ex vacuo phenomena from overlying encephalomalacia. Bone windows reveal left parietal craniotomy. No calvarial fracture seen. There is no scalp soft tissue abnormality. The paranasal sinuses and mastoid air cells are well-aerated. Cervical spine: On sagittal reconstructed images mild reversal of cervical lordosis noted. No visible acute fracture, dislocation or lytic/process seen. There is moderate ventral spondylosis mid and lower cervical spine. The craniovertebral junction and the C1-C2 alignment is normal. The prevertebral and the paravertebral soft tissues are normal. The airway is widely patent. Visualized bilateral parotid and submandibular glands and symmetric and normal. The thyroid lobes are symmetrical and normal. The lung apices are clear. Facial bones: The bony sinus langston, lamina papyracea and the cribriform plate are intact. There is minimal mucoperiosteal thickening right maxillary sinus. Mild deviation of nasal septum to the right with small bony spur is noted. The nasopharyngeal airway is widely patent. Bilateral TM joints and the entire mandible is intact CT/CT cervical spine wo con IMPRESSION: No acute intracranial process seen. There is a left parietal craniotomy change with left posterior parietal encephalomalacia from previous intervention. There is no acute fracture, dislocation or subluxation cervical spine except for mild straightening of cervical lordosis likely spasm or positional. There is no maxillofacial, nasal or mandibular fracture.
--- NOTE | 2021-07-05 14:02 | ED.SEIZURE ---
HPI - Seizure General Chief Complaint: Seizure Stated Complaint: SIEZURE/HEAD STRIKE Time Seen by Provider: 07/05/21 14:02 Source: patient, family and EMS Mode of arrival: EMS Limitations: other (cognitive impairment) History of Present Illness HPI Narrative: 55 yo female with hx of intractable seizures on multiple medications seen at - hx of frequent falls as well. Daughter notes the patient was at an appointment today the ROUTE SALES PERSON just left her there so the patient attempted to walk many miles to a family member's house. She was seen falling and having seizures by bystanders - this is not unusual for her baseline but she suffered trauma due to being outside and alone. Daughter at bedside on arrival. MD complaint: seizure and other (falls head injury) Onset (ago): minute(s) Description of Episode: other (unsure has frequent seizures but they are less in intensity ) Witnessed: Yes - by Bystander Seizure History: Yes Place: Outdoors Possible Precipitating Event: stress Associated symptoms: denies other symptoms Treatments prior to arrival: none Related Data Home Medications Medication Instructions Recorded Confirmed phenobarbital 64.8 mg tablet 2 tab PO BEDTIME 09/28/20 06/09/21 eslicarbazepine 600 mg tablet 600 mg PO BID tab 11/04/20 06/09/21 (Aptiom) citalopram 20 mg tablet 20 mg PO DAILY 02/08/21 06/09/21 cenobamate 200 mg tablet (Xcopri) 200 mg PO DAILY tab 06/09/21 06/09/21 gabapentin 100 mg capsule 100 mg PO TID 06/09/21 06/09/21 magnesium oxide 400 mg (241.3 mg 400 mg PO DAILY 06/09/21 06/09/21 magnesium) tablet risperidone 1 mg tablet 1 mg PO BID tab 06/09/21 06/09/21 cenobamate (Xcopri Maintenance mg PO 06/28/21 Pack) cenobamate 150 mg tablet (Xcopri) mg PO 06/28/21 pantoprazole 40 mg tablet,delayed 40 mg PO DAILY 06/28/21 release phenobarbital 32.4 mg tablet 32.4 mg PO QID 06/28/21 Previous Rx's Medication Instructions Recorded diaper,brief,adult,disposable #10 ea 11/24/20 sucralfate 1 gram tablet 2 g PO DAILY 90 Days #180 tab 02/15/21 walker #1 ea 04/23/21 dicyclomine 20 mg tablet 20 mg PO TID #90 tab 06/03/21 Allergies Allergy/AdvReac Type Severity Reaction Status Date / Time Iodinated Contrast Media Allergy Intermediate RED ALL Verified 06/28/21 09:48 [IV Dye, Iodine Containing] OVER NAUSEA AND LOST RESPIRATIONS Penicillins [PENICILLINS] Allergy Intermediate Unknown Verified 06/28/21 09:48 phenytoin [From Dilantin] Allergy Intermediate gum Verified 06/28/21 09:48 swelling lamotrigine [From Lamictal] Allergy Unknown unknown Verified 06/28/21 09:48 Review of Systems Review of Systems: Constitutional : No Weight loss, No Fever, No Chills, No Fatigue, No Malaise ENT/Mouth : No sore throat, No Rhinorrhea Eyes: No Eye Pain, No Swelling, No Redness Cardiovascular : No Chest Pain, No SOB, No Dyspnea on Exertion, No Orthopnea, No Edema, No Palpitations Respiratory : No Cough, No Sputum, No Wheezing Gastrointestinal : No Nausea, No Vomiting, No Diarrhea, No Constipation, No abdominal Pain, No Hematochezia, No Melena Genitourinary : No Dysuria, No Urinary Frequency, No Hematuria, Musculoskeletal : No joint pain, No Myalgias, No Joint Swelling Skin : No Skin Lesions, No rash, pos abrasions Neuro : No Weakness, No Numbness, No Dizziness, pos Headache Psych : No Anxiety/Panic, No Depression Heme/Lymph: No Bruising, No Bleeding,No Lymphadenopathy Endocrine : No Polyuria, No Polydipsia All other systems reviewed and are negative PMFSH Past Medical History Attestation statement: The following information was validated with the patient. Medical History Class 1 obesity due to excess calories with body mass index (BMI) of 30.0 to 30.9 in adult Depression Encephalomalacia Epilepsy Expressive aphasia Gait instability GERD (gastroesophageal reflux disease) Hyponatremia Hypotension Mild recurrent major depression Overactive bladder Polyarthralgia Pre-op evaluation Pre-op examination Screening for cervical cancer Seizures Unsteady gait Urge urinary incontinence Surgical History H/O prior ablation treatment History of section History of skin graft History of tubal ligation History of tumor Surgical history unknown Family History Family History Father Heart problem Mother Diabetes Low blood pressure Family/Other Substance use disorder Mental health disorder Social History Social History Household Members: Unknown / Unable to assess Housing: Apartment Alcohol intake: never Patient Tobacco Use Status: Never used Tobacco Tobacco use type: Cigarette e-Cigarette/Vaping Use: Never Used Second Hand Smoke Exposure: No Advance Directives: No Advance Directives Information Provided: No Advance Directives Date on File: 04/19/21 Patient : No service: No Current occupational status: disabled Physical Exam Vital Signs: Vital Signs: Last Vital Signs Pulse 94 07/05/21 14:09 BP 116/65 07/05/21 14:09 Pulse Ox 98 07/05/21 14:09 Body Mass Index 30.7 Appearance: Alert. Oriented X3. No acute distress. Eyes: Pupils equal, round and reactive to light. Contusions and abrasion with swelling to R buddhist and zygomatic area ENT: Pharynx normal. Neck: Normal inspection. Neck supple. CVS: Normal heart rate and rhythm. Pulses normal. Respiratory: No respiratory distress. Breath sounds normal. Abdomen: Soft and nontender. Back: no trauma no midline ttp Skin: Skin warm and dry. Normal skin color. Normal skin turgor. Extremities: No lower extremity edema. R shoulder mild ttp and slight pain with ROM Neuro: Oriented X 3. No motor deficit. No sensory deficit. Course Course Course Narrative: no acute trauma at her baseline, daughter feels comfortable with DC MDM - Seizure MDM Narrative Medical decision making narrative: 55 yo female with hx of intractable seizures on multiple medications seen at - hx of frequent falls as well. Daughter notes the patient was at an appointment today the [employer] SAL[employer] PERSON just left her there so the patient attempted to walk many miles to a family member's house. She was seen falling and having seizures by bystanders - she is at her baseline now it is not unusual to have these events - compliant with her medications. At this time CT head/cspine/facial bones ordered, R shoulder xray dispo per results and findings. Discharge Plan Discharge Clinical Impression: Seizure, Contusion of face, Abrasion Patient Disposition: Home, Self-Care Instructions: Facial Contusion (ED), Recurrent Seizures in Adults (ED), Abrasion (ED) Additional Instructions: return to ED for any worsening symptoms or concerns negative head CT, cervical spine CT, facial bones CT negative R shoulder xray apply bacitracin twice a day to wounds for 10 days please follow up with her primary care doctor/neurologist Prescriptions: No Action sucralfate 1 gram tablet 2 g PO DAILY 90 Days Qty: 180 RF: 0 (DME) walker Misc See Rx Instructions .Route Qty: 1 RF: 0 dicyclomine 20 mg tablet 20 mg PO TID Qty: 90 RF: 6 phenobarbital 64.8 mg tablet 2 tab PO BEDTIME RF: 0 Xcopri 200 mg tablet 200 mg PO DAILY RF: 0 (DME) diaper,brief,adult,disposable Misc See Rx Instructions .ROUTE .MEDSUPPLY Qty: 10 RF: 0 magnesium oxide 400 mg (241.3 mg magnesium) tablet 400 mg PO DAILY RF: 0 gabapentin 100 mg capsule 100 mg PO TID RF: 0 Aptiom 600 mg tablet 600 mg PO BID RF: 0 risperidone 1 mg tablet 1 mg PO BID RF: 0 citalopram 20 mg tablet 20 mg PO DAILY RF: 0
[2021-07-05 14:03] VITALS: BP 125/70; PULSE 107; O2SAT 98
[2021-07-05 14:09] VITALS: BP 116/65; PULSE 94; O2SAT 98; BMI 30.7
[2021-07-05] MEDS: Acetaminophen 325 MG TABLET 650 MG PO (14:45)
--- NOTE | 2021-07-05 15:19 | PC.NURSE ---
call made to daughter r/t mothers d/c, left message
== END 2021-07-05 15:33 | disposition home or self-care (01) ==
PROVIDERS: Emergency Provider Emergency Medicine
DX: S00.81XA Abrasion of other part of head, initial encounter (principal); R56.9 Unspecified convulsions; M54.2 Cervicalgia; G44.309 Post-traumatic headache, unspecified, not intractable; M25.511 Pain in right shoulder; W01.0XXA Fall on same level from slipping, tripping and stumbling without subsequent striking against object, initial encounter; Y93.9 Activity, unspecified; Y92.9 Unspecified place or not applicable; Y99.9 Unspecified external cause status; Z79.899 Other long term (current) drug therapy; F17.210 Nicotine dependence, cigarettes, uncomplicated; Z71.6 Tobacco abuse counseling
CPT/HCPCS: 70450; 70486; 72125; 73030; 99284

== ENCOUNTER 2021-07-07 10:09 | Outpatient (RCR) | payer MEDICARE, MEDICAID, SELFPAY ==
--- NOTE | 2021-07-07 21:38 | MHC.PT.OE ---
[facility] [place] Office [place] Office [place] Office [address] Phoebe Feliciano [address] [facility] [phone] F: [phone] F: [phone] F: [phone] F: [phone] Physical Therapy Evaluation Evaluation Date: 07/07/21 Current Condition Diagnosis: Unsteadiness of gait Onset Date: Date of Surgery: Chief Complaint/ Current Level of Function: Pt is a 55 y/o female who has Hx of CVA and seizure disorder who experiences unsteadiness of her gait and frequent falls. Caregiver (niece) reports Pt was at an appointment and was left by her FORMULATION CHEMIST in a waiting room; the patient decided to walk home, she seized and fell on the pavement without assistance; Pt reports she has injured her face, back, L leg, R hand and back of her head. Pt has a long Hx of gait disturbance after her stroke. Pt had been in PT for gait unsteadiness when she fell and fractured her R humerus earlier this year. Prior Level of Function/Occupation: Disabled. Diagnostic Imaging: Patient Goals and Expectations: improve walking. Past Medical History: CVA, seizure disorder (epilepsy), Hx of brain surgery, Hx of multiple location skin graft, balance disorder, Medications: Precautions/ Contraindications: Outcome Measure: DGI: : assessment in chart. Pain Pain Score: 8 Pain Scale Used: Numeric (0 - 10) Pain Location/ Description: L leg, Aggravating Factors: Alleviating Factors: Objective Findings Posture: Skin & Soft Tissue/ Palpation: Gait/ Functional Mobility: 30% scissoring steps, decreased terminal stance B, decreased step length, impulsivity of movement at times, inconsistent foot placement. AROM (PROM) Strength Cervical Spine Flexion: Extension: Lateral Flexion: Rotation: Cervical Comments: Flexion: Extension: Lateral Flexion: Rotation: Other: Shoulder Flexion: Extension: Abduction: ER: IR: Apley ER: Apley IR: Comments: Flexion: Extension: Abduction: Adduction: ER: IR: Other: Elbow Flexion: Extension: Pronation: Supination: Comments: Flexion: Extension: Pronation: Supination: Wrist Flexion: Wrist Extension: Other: Lumbar Spine Flexion: Extension: Lateral Flexion: Rotation: Comments: Transverse abdominus: Extensors: Other: Hip Flexion: Extension: Abduction: Adduction: ER: IR: Comment: Flexion: L 4+/5, R 4/5. Extension: Abduction: 4/5 B. Adduction: ER: IR: Other: Knee Flexion: Extension: Comments: Patella Mobility: Flexion: R 4/5L 4+/5. Extension: R 4/5, L 4+/5. Other: Ankle Dorsiflexion: Plantarflexion: Inversion: Eversion: Comments: Dorsiflexion: R 4/5, L 5/5 Plantarflexion: Inversion: R 4/5, L 5/5 Eversion: R 4+/5, L 5/5 Comments: Carloz Assessment: Sacroiliac Assessment: Muscle Length: Special Tests: Vitals: BP: HR: O2SAT: RR: Other: Balance: Tandem modified 5 sec ea side. FT increased ankle strategies. FT EC increased sway/ hip and stepping strategies. FT on airex increased sway and hip strategies. Neurological Screen: Biceps DTR: Brachioradialis DTR: Triceps DTR: Patella DTR: Achilles DTR: Other: Dermatomes: Sensation: Myotomes: Patient Education Primary Portfolio Analyst Required Yes Who was Educated Readiness for Learning Current Knowledge Education Needs Teaching Method How did Patient Demonstrate Learning Barriers to Learning Assessment Assessment: Pt is a 55 y/o female with Hx of CVA and epilepsy who is referred to PT for eval and treat of unsteadiness of gait which results in decreased tolerance for ambulating long distances, over uneven terrain and with sudden movements, secondary to gait abnormality, decreased B LE strength, impulsiveness, and Hx of CVA. Pt is deemed an appropriate candidate to receive skilled PT in order to address her physical limitations to improve her functional ability. Rehabilitation Potential: Fair Plan of Care Frequency and Duration 2x/wk x 5 wks. Short Term Goals initiate HEP with evidence of compliance. Pt wilfred walk with walker consistently in the home and in the community. Fdc Goals Pt will improve DGI to at least 20/24 in order to demonstrate an improved risk of falls; initial: . I with HEP. Improve hip abd MMT to > 4+/5 B; initial: /5. Pt will be able to demonstrate tolerance for modified tandem stance B x 20 seconds to demonstrate improved standing balance. Treatment Plan Therapeutic Exercise Dynamic Therapeutic Activities Neuromuscular Re-ed Manual Therapies Taping Gait Home Exercise Program Patient Education Reviewed/ Agreed with Student Documentation: Therapist: Electronically signed by: Jose Hines PT. Please sign and return to therapist. Thank you for your referral.
--- NOTE | 2022-01-16 16:08 | MHC.PT.DC ---
[facility] [place] Office [place] [facility] [place] [facility] [address] Phoebe Feliciano [address] [phone] F: [phone] F: [phone] F: [phone] F: [phone] Physical Therapy Discharge Report Diagnosis: Unsteadiness of gait Date of Surgery: Date of Evaluation: 07/07/21 Date of Discharge: 01/16/22 Treatments to Date: 1 Cancellations to Date: No Shows to Date: Discharge Status: Patient Elected to Stop Discharge Summary: Pt was continuing to have seizures and DC'd from therapy d/t many other apts and falling d/t seizure is more of a concern than balance and gait issues at this time. Electronically signed by: Jose Hines PT. Please sign and return to therapist. Thank you for your referral.
== END 2022-01-16 16:09 | disposition home or self-care (01) ==
LOC: HO.PTCHIC 10:09
PROVIDERS: PCP Internal Medicine; Visit Provider Internal Medicine
DX: R26.81 Unsteadiness on feet (principal)
CPT/HCPCS: 97161

== ENCOUNTER 2021-07-15 08:54 | Emergency (ER) | payer MEDICARE, MEDICAID, SELFPAY ==
--- NOTE | ~2021-07-15 | XR_ITS ---
EXAMINATION: XR HAND, RIGHT CLINICAL INFORMATION: Swelling and pain following seizure, fifth digit. COMPARISON: Radiographs right wrist 11/16/2020, radiographs right hand wrist 06/23/2014 TECHNIQUE: 3 views of the right hand are obtained portably. FINDINGS: The lateral view shows questionable fracture with cortical step off 5th finger proximal phalanx at junction head and neck. Remainder of the bony structures appear intact. There is no dislocation or destructive process. Mild negative ulnar variance is chronic finding. There is mild osteopenia. XR/XR hand RT 2V IMPRESSION: Questionable fracture fifth finger proximal phalanx at junction head and neck. Recommend correlation with clinical exam. If clinically indicated, further assessment could be obtained with formal (non-portable) radiographs limited to the 5th finger.
--- NOTE | ~2021-07-15 | CT_ITS ---
EXAMINATION: CT HEAD WITHOUT CONTRAST CLINICAL INFORMATION: Head trauma and confusion after seizure COMPARISON: None TECHNIQUE: Contiguous axial imaging was performed from the skull base to vertex without intravenous administration of contrast. This CT examination was performed using dose optimization techniques as appropriate, variously including the following: *Automated exposure control *Adjustment of mA and/or kV according to patient size (this includes techniques or standardized protocols for targeted exams where dose is matched to indication/reason for exam; i.e. extremities or head) *Use of iterative reconstruction technique DLP: 626 mGy-cm FINDINGS: There is no acute intra-axial, extra-axial bleed, masses or midline shift. There is a left posterior parietal lobe encephalomalacia from old insult or postsurgical changes. No acute infarction evolution seen. The lateral ventricles are symmetrical in size and configuration. There is no edema or midline shift. There is no scalp soft tissues swelling. Bilateral paranasal sinuses and mastoid air cells are well-aerated. CT/CT head/brain wo con IMPRESSION: No acute intracranial process seen. Left posterior parietal lobe encephalomalacia. There is no acute infarct in evolution.
[2021-07-15 09:10] VITALS: BP 114/59; BP 118/92; PULSE 82; PULSE 92; RESP 16; TEMP 36.9; O2SAT 100; O2SAT 98; BMI 31.1
[2021-07-15 09:31] VITALS: BP 109/65; PULSE 79; RESP 14; TEMP 36.8; O2SAT 97
--- NOTE | 2021-07-15 09:58 | ED_ITS ---
HPI - Fall General Chief Complaint: Seizure Stated Complaint: siezure Time Seen by Provider: 07/15/21 09:58 Source: patient Mode of arrival: EMS Limitations: no limitations History of Present Illness HPI Narrative: Patient had a seizure and hit her head, positive loc, daughter called for the ambulance. According to the patient her seizure was for a few seconds. MD complaint: other (seizure) Onset (ago): minute(s) Fall from: standing Fall witnessed: yes, by family Place fall occurred: home Loss of consciousness: yes Location of injury: head Associated symptoms (after fall): confusion Related Data Home Medications Medication Instructions Recorded Confirmed phenobarbital 64.8 mg tablet 2 tab PO BEDTIME 09/28/20 06/09/21 eslicarbazepine 600 mg tablet 600 mg PO BID tab 11/04/20 06/09/21 (Aptiom) citalopram 20 mg tablet 20 mg PO DAILY 02/08/21 06/09/21 cenobamate 200 mg tablet (Xcopri) 200 mg PO DAILY tab 06/09/21 06/09/21 gabapentin 100 mg capsule 100 mg PO TID 06/09/21 06/09/21 magnesium oxide 400 mg (241.3 mg 400 mg PO DAILY 06/09/21 06/09/21 magnesium) tablet risperidone 1 mg tablet 1 mg PO BID tab 06/09/21 06/09/21 cenobamate (Xcopri Maintenance mg PO 06/28/21 Pack) cenobamate 150 mg tablet (Xcopri) mg PO 06/28/21 pantoprazole 40 mg tablet,delayed 40 mg PO DAILY 06/28/21 release phenobarbital 32.4 mg tablet 32.4 mg PO QID 06/28/21 Previous Rx's Medication Instructions Recorded diaper,brief,adult,disposable #10 ea 11/24/20 sucralfate 1 gram tablet 2 g PO DAILY 90 Days #180 tab 02/15/21 walker #1 ea 04/23/21 dicyclomine 20 mg tablet 20 mg PO TID #90 tab 06/03/21 Allergies Allergy/AdvReac Type Severity Reaction Status Date / Time Iodinated Contrast Media Allergy Intermediate RED ALL Verified 06/28/21 09:48 [IV Dye, Iodine Containing] OVER NAUSEA AND LOST RESPIRATIONS Penicillins [PENICILLINS] Allergy Intermediate Unknown Verified 06/28/21 09:48 phenytoin [From Dilantin] Allergy Intermediate gum Verified 06/28/21 09:48 swelling lamotrigine [From Lamictal] Allergy Unknown unknown Verified 06/28/21 09:48 Review of Systems Constitutional: Constitutional: Reports no additional constitutional complaints Eyes: Eyes: Reports no additional eye complaints ENT: Denies dizziness Cardiovascular: Cardiovascular: Reports no additional cardiovascular complaints Respiratory: Respiratory: Reports as per HPI Gastrointestinal: Gastrointestinal: Reports no additional gastrointestinal complaints Genitourinary: Genitourinary: Reports no additional female genitourinary complaints Musculoskeletal: Musculoskeletal: Reports no additional musculoskeletal complaints Integumentary/Breasts: Skin/Breast: Denies rash Neurologic: Reports system reviewed and no additional complaints, except as documented, Denies dizziness and Denies Sensory deficit (Neuro) Comments: confusion Psychiatric: Psychiatric: Denies anxiety PMFSH Past Medical History Medical History Class 1 obesity due to excess calories with body mass index (BMI) of 30.0 to 30.9 in adult Depression Encephalomalacia Epilepsy Expressive aphasia Gait instability GERD (gastroesophageal reflux disease) Hyponatremia Hypotension Mild recurrent major depression Overactive bladder Polyarthralgia Pre-op evaluation Pre-op examination Screening for cervical cancer Seizures Unsteady gait Urge urinary incontinence Surgical History H/O prior ablation treatment History of section History of skin graft History of tubal ligation History of tumor Surgical history unknown Family History Family History Father Heart problem Mother Diabetes Low blood pressure Family/Other Substance use disorder Mental health disorder Social History Social History Household Members: Unknown / Unable to assess Housing: Apartment Alcohol intake: never Patient Tobacco Use Status: Never used Tobacco Tobacco use type: Cigarette e-Cigarette/Vaping Use: Never Used Second Hand Smoke Exposure: No Use of substances other than those prescribed or required for medical reasons: No Advance Directives: Yes Advance Directives Information Provided: Yes Advance Directives on File: No Advance Directives Date on File: 04/19/21 Patient : No service: No Current occupational status: disabled Physical Exam Vital Signs: Vital Signs: Last Vital Signs Temp 98.2 F 07/15/21 09:31 Pulse 79 07/15/21 09:31 Resp 14 07/15/21 09:31 BP 109/65 07/15/21 09:31 Pulse Ox 97 07/15/21 09:31 Body Mass Index 31.1 Const: Other: female appearing confused Nutritional Appearance: average body habitus Orientation/consciousness: oriented to person Limitations: no limitations HENMT: Head: Yes normal to inspection Ears: external ears normal General nose exam: Normal external nose present Mouth: Normal oral and palatal mucosa present and oropharynx normal Throat: Yes posterior oropharynx normal Eyes: General: appearance normal, both eyes and all related structures Neck: Other: supple Neck: Yes normal visual inspection Chest: Chest palpation & inspection: normal inspection of the chest Resp: Auscultation: clear to auscultation bilaterally Cardio: Jugular venous distension: no JVD Rate: regular rate Rhythm: regular rhythm Heart sounds: S1 normal heart sound present and S2 normal heart sound present GI: Inspection: Yes normal to inspection Palpation (GI): Soft to palpation, nontender and No hepatosplenomegaly present Auscultation: normal bowel sounds : General: Yes no CVA tenderness Back/Spine/Pelvis: Back: no CVA tenderness Skin: Other: 5 cm frontal laceration, bleeding Neuro: General: oriented to person Cranial nerves: Yes CN's II-XII intact bilaterally Motor exam (neuro): 5/5 motor strength present throughout Sensory Exam: No Sensory deficit (Neuro) Extrem: Other: right fifth digit with PIP swelling and ecchymosis Psych: Appearance: grossly normal Course Reevaluation(s) Reevaluation #1: CT brain showed encephalomalecia, and 5th digit PIP fracture splinted Time: 12:36 MDM - Fall Lab Data Result diagrams: 07/15/21 10:57 07/15/21 11:44 Labs: Lab Results 07/15/21 07/15/21 07/15/21 Range/Units 10:36 10:57 11:44 WBC 4.5 L (4.8-10.8) X10*3/uL RBC 3.73 L (4.20-5.50) X10*6/uL Hgb 11.8 L (12.0-16.0) g/dl Hct 36.1 L (37-47) % MCV 96.8 (80-98) fL MCH 31.6 (27.0-33.0) pg MCHC 32.7 (31.0-35.0) g/dl RDW 14.6 (11.0-16.0) % Plt Count 229 (160-400) X10*3/uL MPV 9.3 L (9.4-12.3) fL Immature Gran % (Auto) 0.2 (0.0-0.4) % Neut % (Auto) 68.3 (45-73) % Lymph % (Auto) 20.3 (20-40) % [place] % (Auto) 9.6 (2-11) % Eos % (Auto) 0.9 (0-4) % Baso % (Auto) 0.7 (0-2) % Lymph # (Auto) 0.9 L (1.2-4.9) X10*3/uL [place] # (Auto) 0.4 (0.1-1.2) X10*3/uL Eos # (Auto) 0.0 (0.0-0.4) X10*3/uL Baso # (Auto) 0.0 (0.0-0.2) X10*3/uL Abs Immat Gran (auto) 0.01 (0.00-0.03) X10*3/uL Absolute Neuts (auto) 3.1 (2.0-8.3) X10*3/uL Absolute Nucleated RBC 0.000 (0.0-0.012) X10*3/uL Nucleated RBC % (auto) 0.0 (0.0-0.2) /100WBC Sodium 142 (135-145) mmol/L Potassium 4.6 (3.3-5.1) mmol/L Chloride 105 (96-108) mmol/L Carbon Dioxide 32 H (22-29) mmol/L Anion Gap 10 L (12-20) BUN 16 (9-16) mg/dL Creatinine 0.63 (0.5-1.4) mg/dL Estim Creat Clear Calc 115.1 Estimated GFR > 60 POC Glucose 83 (60-115) mg/dL Random Glucose 79 (60-115) mg/dL Calcium 9.5 (8.4-10.2) mg/dL Imaging Data CT scan - chest: Radiologist's impression: IMPRESSION: No acute intracranial process seen. ? Left posterior parietal lobe encephalomalacia. ? There is no acute infarct in evolution. right Hand: Radiologist's impression: FINDINGS: The lateral view shows questionable fracture with cortical step off 5th finger proximal phalanx at junction head and neck. Remainder of the bony structures appear intact. There is no dislocation or destructive process. Mild negative ulnar variance is chronic finding. There is mild osteopenia.? XR/XR hand RT 2V IMPRESSION: Questionable fracture fifth finger proximal phalanx at junction head and neck. Recommend correlation with clinical exam. If clinically indicated, further assessment could be obtained with formal (non-portable) radiographs limited to the 5th finger. Discharge Plan Discharge Clinical Impression: Epilepsy Qualifiers: Epilepsy type: other generalized Intractability: not intractable Status epilepticus: without status epilepticus Qualified Code(s): G40.409 - Other generalized epilepsy and epileptic syndromes, not intractable, without status epilepticus Forehead laceration Qualifiers: Encounter type: initial encounter Qualified Code(s): S01.81XA - Laceration without foreign body of other part of head, initial encounter Finger fracture, right Qualifiers: Encounter type: initial encounter Finger: little finger Fracture type: closed Phalanx: middle Fracture alignment: nondisplaced Qualified Code(s): S62.656A - Nondisplaced fracture of middle phalanx of right little finger, initial enco unter for closed fracture Patient Disposition: Home, Self-Care Instructions: Laceration (ED), Finger Fracture (ED), Epilepsy (ED) Prescriptions: No Action sucralfate 1 gram tablet 2 g PO DAILY 90 Days Qty: 180 RF: 0 (DME) walker Misc See Rx Instructions .Route Qty: 1 RF: 0 dicyclomine 20 mg tablet 20 mg PO TID Qty: 90 RF: 6 phenobarbital 64.8 mg tablet 2 tab PO BEDTIME RF: 0 Xcopri 200 mg tablet 200 mg PO DAILY RF: 0 (DME) diaper,brief,adult,disposable Misc See Rx Instructions .ROUTE .MEDSUPPLY Qty: 10 RF: 0 magnesium oxide 400 mg (241.3 mg magnesium) tablet 400 mg PO DAILY RF: 0 gabapentin 100 mg capsule 100 mg PO TID RF: 0 Aptiom 600 mg tablet 600 mg PO BID RF: 0 risperidone 1 mg tablet 1 mg PO BID RF: 0 citalopram 20 mg tablet 20 mg PO DAILY RF: 0 Referrals: Tru Muñiz MD [Physician] - 1 week Daniel Hernandez MD [Physician] - 1 week Lara Mercado MD [Primary Care Provider] - 1 week
--- NOTE | 2021-07-15 09:59 | PC.NURSE ---
NANO DIEHL PT' DAUGHTER ([phone]) CALLED [facility] [place] AND WAS UPDATED ON PT STATUS. DAUGHTER STATES IF SHE IS BEING D/C'D HOME SHE WOULD LIKE TO KNOW BECAUSE SHE IS THE ONE WHO HAS TO TAKE HER HOME. MD AT BEDSIDE AT THIS TIME.
[2021-07-15 10:53] LABS: Glucose, Whole Blood 83 mg/dL (60-115)
[2021-07-15] MEDS: Lidocaine HCl 2%/Epi 1:100,000 20 ML VIAL 10 ML INFILTRATI (10:59)
[2021-07-15 11:02] LABS: MANUAL DIFF FLAG NO
[2021-07-15 11:04] LABS: Basophils Percent Auto 0.7 % (0-2); Eosinophils Percent Auto 0.9 % (0-4); Hematocrit 36.1 % (37-47); Hemoglobin 11.8 g/dl (12.0-16.0); Imm Gran Abs Auto 0.01 X10*3/uL (0.00-0.03); Imm Gran Pct Auto 0.2 % (0.0-0.4); Lymphocytes Absolute Auto 0.9 X10*3/uL (1.2-4.9); Lymphocytes Percent Auto 20.3 % (20-40); Mean Corpuscular HGB Conc 32.7 g/dl (31.0-35.0); Mean Corpuscular Hemoglobin 31.6 pg (27.0-33.0); Mean Corpuscular Volume 96.8 fL (80-98); Mean Platelet Volume 9.3 fL (9.4-12.3); Monocytes Absolute Auto 0.4 X10*3/uL (0.1-1.2); Monocytes Percent Auto 9.6 % (2-11); Neutrophils Absolute Auto 3.1 X10*3/uL (2.0-8.3); Neutrophils Percent Auto 68.3 % (45-73); Platelet Count 229 X10*3/uL (160-400); Red Blood Count 3.73 X10*6/uL (4.20-5.50); Red Cell Distribution Width 14.6 % (11.0-16.0); White Blood Count 4.5 X10*3/uL (4.8-10.8)
[2021-07-15 12:10] LABS: Anion Gap 10 (12-20); Blood Urea Nitrogen 16 mg/dL (9-16); Calcium 9.5 mg/dL (8.4-10.2); Carbon Dioxide 32 mmol/L (22-29); Chloride 105 mmol/L (96-108); Creatinine Clr Calc Pharmacy 115.1; Estimated Glomerular Filt Rate > 60; Glucose Random 79 mg/dL (60-115); Potassium 4.6 mmol/L (3.3-5.1); Sodium 142 mmol/L (135-145)
[2021-07-15 13:36] VITALS: BP 115/70; PULSE 75; RESP 12; TEMP 36.9; O2SAT 98
== END 2021-07-15 14:09 | disposition home or self-care (01) ==
PROVIDERS: Emergency Provider Emergency Medicine; PCP Internal Medicine
DX: S62.656A Nondisplaced fracture of middle phalanx of right little finger, initial encounter for closed fracture (principal); S01.81XA Laceration without foreign body of other part of head, initial encounter; G40.409 Other generalized epilepsy and epileptic syndromes, not intractable, without status epilepticus; G44.309 Post-traumatic headache, unspecified, not intractable; F17.210 Nicotine dependence, cigarettes, uncomplicated; W01.0XXA Fall on same level from slipping, tripping and stumbling without subsequent striking against object, initial encounter; Y93.9 Activity, unspecified; Y92.9 Unspecified place or not applicable; Y99.9 Unspecified external cause status; Z79.899 Other long term (current) drug therapy; Z71.6 Tobacco abuse counseling
CPT/HCPCS: 36415; 70450; 73120; 80048; 82947; 85025; 99284

== ENCOUNTER 2021-07-26 07:11 | Outpatient (REF) | payer MEDICARE, MEDICAID, SELFPAY ==
--- NOTE | ~2021-07-26 | XR_ITS ---
EXAMINATION: XR HAND, RIGHT CLINICAL INFORMATION: Pain COMPARISON: Previous right hand x-ray 07/15/2021 TECHNIQUE: PA, lateral, and oblique views of the right hand. FINDINGS: The bones are osteopenic. There is a transverse fracture of the distal shaft of the proximal phalanx of the fifth finger. There is slight volar displacement of the fifth metacarpal head with respect to the more proximal shaft measuring 1 to 2 mm. There is adjacent soft tissue swelling. This is unchanged. There is an old healed fracture of the fifth metacarpal head. No other fracture is seen. There is mild arthritis at the DIP joint of the second finger, first INTERMEDIATE joint and radiocarpal joint. XR/XR hand RT min 3V IMPRESSION: Transverse fracture of the distal aspect of the proximal phalanx of the fifth finger and overlying soft tissue swelling. This is unchanged from recent exam. Old healed fifth metacarpal head fracture.
== END 2021-07-26 07:12 | disposition home or self-care (01) ==
LOC: HO.HOSX 07:11
PROVIDERS: Visit Provider Physician Assistant
DX: S62.656A Nondisplaced fracture of middle phalanx of right little finger, initial encounter for closed fracture (principal)
CPT/HCPCS: 73130; 99202

== ENCOUNTER 2021-07-30 08:01 | Emergency (ER) | payer MEDICARE, MEDICAID, SELFPAY ==
--- NOTE | ~2021-07-30 | XR_ITS ---
EXAMINATION: TWO-VIEW CHEST AND THREE-VIEW LUMBAR SPINE CLINICAL INFORMATION: Status post seizure with lower back pain and ecchymosis left side. Seizure with head injury. COMPARISON: Lumbar spine of January 16, 2021 TECHNIQUE: PA and lateral chest. Three-view lumbar spine. FINDINGS: PA and lateral views of the chest do not demonstrate any evidence of acute parenchymal disease, pneumothorax, or pleural effusion. Heart normal size. No evidence of pulmonary edema. Powerpack is seen overlying the anterior left chest with wires directed to the left cervical spine region. 3 views of the lumbar spine do not demonstrate evidence of acute fracture, spondylolisthesis, or spondylolysis. Disc spaces are maintained. There appears be some degree of facet arthropathy L4-S1. Pedicles appear intact. There is mild scoliosis convex left. Sacroiliac joints unremarkable. XR/XR chest 2V IMPRESSION: No acute disease within the chest. No acute fracture, spondylolisthesis, or spondylolysis identified in the lumbar spine.
--- NOTE | ~2021-07-30 | CT_ITS ---
EXAMINATION: CT HEAD/BRAIN WITHOUT CONTRAST CLINICAL INFORMATION: Seizure COMPARISON: July 15, 2021 TECHNIQUE: CT scanning from base of skull to vertex performed without IV contrast administration. This CT examination was performed using dose optimization techniques as appropriate, variously including the following: *Automated exposure control *Adjustment of mA and/or kV according to patient size (this includes techniques or standardized protocols for targeted exams where dose is matched to indication/reason for exam; i.e. extremities or head) *Use of iterative reconstruction technique DLP: 647.20 mGy-cm. FINDINGS: Status post previous left parietal/occipital craniotomy. There is stable adjacent encephalomalacia present within the occipital lobe.. No new abnormal extra-axial fluid collection or intracranial hemorrhage is seen. No significant mass effect or midline structure shift is evident. Visualized paranasal sinuses and mastoid air cells unremarkable. There appears be a small lacunar infarct within the anterior limb of the right internal capsule. CT/CT cervical spine wo con IMPRESSION: No acute intracranial abnormality. Postsurgical change with encephalomalacia involving the left occipital lobe. EXAMINATION: CT OF THE CERVICAL SPINE CLINICAL INFORMATION: Seizure COMPARISON: July 05, 2021. TECHNIQUE: Thin helical images with sagittal and coronal reformats. This CT examination was performed using dose optimization techniques as appropriate, variously including the following: *Automated exposure control *Adjustment of mA and/or kV according to patient size (this includes techniques or standardized protocols for targeted exams where dose is matched to indication/reason for exam; i.e. extremities or head) *Use of iterative reconstruction technique DOSE: DLP 367.23 mGy-cm FINDINGS: The atlantoaxial and atlanto-occipital articulations are normal. No fracture. No significant intrinsic bony abnormality. The vertebral bodies and posterior elements are normal. The disc heights are preserved. The bony canal and neural foramina are well maintained. The surrounding soft tissues are normal. The lung apices are clear. There is some spurring seen anteriorly at the C4-C5 and C5-C6 levels. No neural foraminal encroachment seen. IMPRESSION: No acute cervical spine fracture.
--- NOTE | ~2021-07-30 | XR_ITS ---
EXAMINATION: TWO-VIEW CHEST AND THREE-VIEW LUMBAR SPINE CLINICAL INFORMATION: Status post seizure with lower back pain and ecchymosis left side. Seizure with head injury. COMPARISON: Lumbar spine of January 16, 2021 TECHNIQUE: PA and lateral chest. Three-view lumbar spine. FINDINGS: PA and lateral views of the chest do not demonstrate any evidence of acute parenchymal disease, pneumothorax, or pleural effusion. Heart normal size. No evidence of pulmonary edema. Powerpack is seen overlying the anterior left chest with wires directed to the left cervical spine region. 3 views of the lumbar spine do not demonstrate evidence of acute fracture, spondylolisthesis, or spondylolysis. Disc spaces are maintained. There appears be some degree of facet arthropathy L4-S1. Pedicles appear intact. There is mild scoliosis convex left. Sacroiliac joints unremarkable. XR/XR lumbar spine 2-3V IMPRESSION: No acute disease within the chest. No acute fracture, spondylolisthesis, or spondylolysis identified in the lumbar spine.
[2021-07-30 08:11] VITALS: BP 105/63; BP 118/70; PULSE 75; PULSE 85; RESP 16; TEMP 36.8; O2SAT 98; BMI 33.5
--- NOTE | 2021-07-30 08:34 | ECG_ITS ---
Test Reason : SEIZURE Blood Pressure : / mmHG Vent. Rate : 067 BPM Atrial Rate : 067 BPM P-R Int : 168 ms QRS Dur : 074 ms QT Int : 370 ms P-R-T Axes : 003 033 045 degrees QTc Int : 390 ms Normal sinus rhythm RSR' or QR pattern in V1 suggests right ventricular conduction delay Otherwise normal ECG No significant changes seen Referred By: Yara Rhoades Electronically Signed By:HIRAL MESSER MD
--- NOTE | 2021-07-30 08:45 | ED.SEIZURE ---
HPI - Seizure General Chief Complaint: Seizure Stated Complaint: fall/seizure lack back of head Time Seen by Provider: 07/30/21 08:32 Source: patient and EMS Mode of arrival: EMS Limitations: language barrier ([place]ambian-speaking) and other (For historian) History of Present Illness HPI Narrative: 55-year-old female who is [place]ian-speaking presenting to the ED via EMS who has a past medical history of psychiatric disorder, refractory seizure disorder, status post pulse basal nerve stimulator and craniotomy currently on cenobamate, cloabzam, eslicarbazepine, phenobarbital and risperidone who reports she last took it at all this morning at 07:00 presenting after she had a seizure with head injury where she sustained a laceration to her posterior scalp prior to arrival. She reports that she was getting ready for the morning and she had just finished brushing her teeth and taking a shower and when she was leaving the bathroom she had a seizure. She reports that the seizure was only for a few seconds because her daughter ran right over. She reports her posterior scalp hurts, and her left lower back. She denies any fevers, chills, dizziness, headaches, neck pain/stiffness, chest pain or shortness of breath, change in vision, paresthesias, nausea/vomiting/diarrhea constipation, black or bloody stools, abdominal pain, dysuria, hematuria, cough, sore throat, nasal congestion/rhinorrhea, rashes or any other symptoms complaints or concerns at this time. When I reviewed the patient's chart it appears that the patient is noncompliant with her seizure medications due to uncontrolled depression this was documented on her last visit and admission here on 04/20/2021. Patient reports she is up to date on tetanus. complaint: seizure Onset (ago): minute(s) (Prior to arrival) Description of Episode: loss of consciousness -: second(s) Witnessed: No (Although daughter heard the loud sound and ran and found her on the ground postictal) Trauma: Yes Seizure History: Yes (yesterday in bed) Place: Home Possible Precipitating Event: none Associated symptoms: denies other symptoms Treatments prior to arrival: none Related Data Home Medications Medication Instructions Recorded Confirmed phenobarbital 64.8 mg tablet 2 tab PO BEDTIME 09/28/20 06/09/21 eslicarbazepine 600 mg tablet 600 mg PO BID tab 11/04/20 06/09/21 (Aptiom) citalopram 20 mg tablet 20 mg PO DAILY 02/08/21 06/09/21 cenobamate 200 mg tablet (Xcopri) 200 mg PO DAILY tab 06/09/21 06/09/21 magnesium oxide 400 mg (241.3 mg 400 mg PO DAILY 06/09/21 06/09/21 magnesium) tablet risperidone 1 mg tablet 1 mg PO BID tab 06/09/21 06/09/21 cenobamate (Xcopri Maintenance mg PO 06/28/21 Pack) cenobamate 150 mg tablet (Xcopri) mg PO 06/28/21 pantoprazole 40 mg tablet,delayed 40 mg PO DAILY 06/28/21 release phenobarbital 32.4 mg tablet 32.4 mg PO QID 06/28/21 gabapentin 100 mg capsule 300 mg PO TID cap 07/26/21 Previous Rx's Medication Instructions Recorded diaper,brief,adult,disposable #10 ea 11/24/20 sucralfate 1 gram tablet 2 g PO DAILY 90 Days #180 tab 02/15/21 walker #1 ea 04/23/21 dicyclomine 20 mg tablet 20 mg PO TID #90 tab 06/03/21 Allergies Allergy/AdvReac Type Severity Reaction Status Date / Time Iodinated Contrast Media Allergy Intermediate RED ALL Verified 07/26/21 10:40 [IV Dye, Iodine Containing] OVER NAUSEA AND LOST RESPIRATIONS Penicillins [PENICILLINS] Allergy Intermediate Unknown Verified 07/26/21 10:40 phenytoin [From Dilantin] Allergy Intermediate gum Verified 07/26/21 10:40 swelling lamotrigine [From Lamictal] Allergy Unknown unknown Verified 07/26/21 10:40 Review of Systems Review of Systems: Constitutional : No Fever, No Chills, No Night Sweats, No Fatigue, No Malaise ENT/Mouth : No Ear Pain, No Nasal Congestion, No Sinus Pain, No sore throat, No Rhinorrhea Eyes: No Eye Pain, No Swelling, No Redness, No Foreign Body, No Discharge, No Vision Changes Cardiovascular : No Chest Pain, No SOB, No Dyspnea on Exertion, No Orthopnea, No Palpitations Respiratory : No Cough, No Sputum, No Wheezing, No Dyspnea Gastrointestinal : No Nausea, No Vomiting, No Diarrhea, No Constipation, No abdominal Pain, No Hematochezia, No Melena Genitourinary : No Dysuria, No Urinary Frequency, No Urinary Incontinence, No Urgency, No Flank Pain Musculoskeletal : Positive lower back pain/injury, no neck pain/injury, No joint pain, No Myalgias Skin : No lacerations Neuro : Positive seizure with head injury with loss of consciousness with posterior scalp pain, No Focal weakness, no general weakness, No Numbness, No Paresthesias, No Dizziness, No Headache Psych : No Anxiety, No Depression, No SI/HI, No AVH, No thoughts of self injury Yes all other systems are reviewed and are negative [facility] Past Medical History Attestation statement: The following information was validated with the patient. Medical History Class 1 obesity due to excess calories with body mass index (BMI) of 30.0 to 30.9 in adult Depression Encephalomalacia Epilepsy Expressive aphasia Gait instability GERD (gastroesophageal reflux disease) Hyponatremia Hypotension Mild recurrent major depression Overactive bladder Polyarthralgia Pre-op evaluation Pre-op examination Screening for cervical cancer Seizures Unsteady gait Urge urinary incontinence Surgical History H/O prior ablation treatment History of section History of skin graft History of tubal ligation History of tumor Surgical history unknown Family History Family History Father Heart problem Mother Diabetes Low blood pressure Family/Other Substance use disorder Mental health disorder Social History Social History Household Members: Unknown / Unable to assess Housing: Apartment Alcohol intake: never Patient Tobacco Use Status: Never used Tobacco Tobacco use type: Cigarette e-Cigarette/Vaping Use: Never Used Second Hand Smoke Exposure: No Advance Directives: No Advance Directives Information Provided: No Advance Directives Date on File: 04/19/21 service: No Current occupational status: disabled Current occupation: rt handed Physical Exam Vital Signs: Vital Signs: Last Vital Signs Temp 98.5 F 07/30/21 10:54 Pulse 69 07/30/21 10:54 Resp 12 07/30/21 10:54 BP 121/79 07/30/21 10:54 Pulse Ox 100 07/30/21 10:54 Body Mass Index 33.5 Vital signs have been reviewed as normal and appeared to be correct. Blood pressure normal. Heart rate normal. Respiration rate normal. Temperature normal. Oxygen saturation normal. Appearance: Alert. Orientated x 1. No acute distress. Head: 3 cm intermediate laceration to occipital aspect of scalp. No active bleeding or FB's noted or depression of scalp. Otherwise no other signs of trauma. Able to rotate head bilaterally. No Cortes signs or raccoon eyes noted. Eyes: PERRLA. EOMI. No nystagmus noted. Conjunctiva and sclera normal. Eyelids normal. Corneal reflex normal. ENT: EAC normal. TM's Normal. Hearing normal. Pharynx normal. Uvula midline. tongue midline. Moist mucous membranes. No trismus noted. No drooling noted. No muffled voice noted. No nystagmus noted. Neck: Normal inspection. Neck supple. FROM. No adenopathy. Trachea midline. Thyroid Normal. No meningeal signs. No neck mass noted. CVS: Normal heart rate and rhythm. Heart sound normal. No murmurs noted. Pulses normal throughout. Respiratory: No respiratory distress. Painless inspiration. Breath sounds normal. No wheezes/rales/rhonchi noted. Chest nontender. No accessory muscle usage noted or decreased air movement noted. Abdomen: Soft and nontender. Bowel sounds normal in all 4 quadrants. No distention noted. No organomegaly noted. No visible injury noted. Back: No CVA tenderness. Full range of motion noted. No obvious deformities, or edema. Mild para-spinal muscular tenderness from lumbar region to coccyx. Full ROM in back and lower extremities. 5/5 strength hip extension/flexion, abduction, adduction. Mild Lumbar pain with hip flexion against resistance. Straight leg raise test negative on right; Straight leg raise test negative on left; Reflexes normal ankle and knee bilaterally; EHL motor strength normal bilaterally. No rashes/lesion/induration/fluctuance or signs infection noted. Skin: Skin warm and dry. Normal skin color. Normal skin turgor. No rashes/lesions/lacerations noted. Extremities: No lower extremity edema. Extremities exhibit normal range of motion. Extremities nontender. Able to shrug shoulders bilaterally and keep up against resistance. Neuro: Alert. Oriented X 1. No motor deficit. No sensory deficit. Reflexes normal. Moving all extremities. No focal motor deficits. Cranial nerves II-XI intact bilaterally. Facial strength normal. Normal cognition. Speech normal. Gait normal. Strength 5/5 throughout. No pronator drift. No tremor noted. No fasciculations noted. No rigidity noted. Muscle tone normal throughout. No asterixis noted. Ldeaea-eb-obfc test normal. Heel to olosn test normal. Rapid alternating movement upper extremity normal. Rapid alternating movement lower extremity normal. Hand drop from overhead Misses face. Course Course Course Narrative: - 55-year-old [place]ian-speaking female who has a past medical history of extensive psychiatric disorder with refractory seizure disorder and status post basal nerve stimulator and craniotomy currently on cenobamate, cloabzam, eslicarbazepine, phenobarbital and risperidone who reports she last took it at all this morning at 07:00 presenting to the ED after she had a seizure with head injury where she sustained a laceration to her posterior scalp prior to arrival while she was in the bathroom performing her ADLs. She reports that the seizure was only for a few seconds because her daughter ran right over. She reports her posterior scalp hurts, and her left lower back. - When I reviewed the patient's chart it appears that the patient is noncompliant with her seizure medications due to uncontrolled depression this was documented on her last visit and admission here on 04/20/2021. On exam patient is alert although confused she knows she is at [facility] and that Thanksgiving is coming up although she was unable to tell me who the president was, the month or the year. She is not in any acute distress. No focal neuro deficits are noted. She does have a 3cm intermediate laceration to posterior scalp no FB's noted. Neck is nontender and supple. Lungs CTA. CV RRR. Abd is soft and non tender. Mild Paraspinous muscular tenderness with ecchymosis. Reflexes intact. No other signs of trauma. Plan: Labs, CT scan of brain/cervical spine, x-ray of lumbar spine, x-ray of chest, EKG. Provide 975 mg of Tylenol then re-evaluate. Reevaluation(s) Reevaluation #1: - Labs reviewed and sodium at 132. CARBON DIOXIDE 18. ALT 35. ALKALINE PHOSPHATE 172. - otherwise all other labs are within normal limits. - CT scan of brain/cervical spine within normal limits no acute processes are noted. X-ray of chest and lumbar spine negative for any acute processes - COVID swab is negative. - patient now status post laceration repair with 7 jakub placed in the posterior occipital aspect of the scalp. - patient is currently receiving a L of IV fluids for her low-sodium no additional imaging or labs indicated and no indication for admission at this time. Will DC home instructions to follow up with Neurology and continue taking her previously prescribed medications as previously prescribed and to return if any new or worsening symptoms. She will need to return in 5 days 1st staple removal. I also discussed this with the daughter over the phone and she understands agrees with this plan. Time: 11:49 [facility] - Seizure Medical Records Attestation: I reviewed the patient's medical records. Lab Data Attestation: I reviewed the patient's lab results. Result diagrams: 07/30/21 09:57 07/30/21 09:57 Labs: Lab Results 07/30/21 07/30/21 07/30/21 Range/Units 09:57 09:57 09:57 WBC 4.1 L (4.8-10.8) X10*3/uL RBC 4.02 L (4.20-5.50) X10*6/uL Hgb 12.6 (12.0-16.0) g/dl Hct 38.5 (37.0-47.0) % MCV 95.8 (80.0-98.0) fL MCH 31.3 (27.0-33.0) pg MCHC 32.7 (31.0-35.0) g/dl RDW 14.0 (11.0-16.0) % Plt Count 194 (160-400) X10*3/uL MPV 9.4 (9.4-12.3) fL Immature Gran % (Auto) 0.2 (0.0-0.4) % Neut % (Auto) 64.6 (45-73) % Lymph % (Auto) 24.3 (20-40) % [place] % (Auto) 9.7 (2-11) % Eos % (Auto) 0.7 (0-4) % Baso % (Auto) 0.5 (0-2) % Lymph # (Auto) 1.0 L (1.2-4.9) X10*3/uL [place] # (Auto) 0.4 (0.1-1.2) X10*3/uL Eos # (Auto) 0.0 (0.0-0.4) X10*3/uL Baso # (Auto) 0.0 (0.0-0.2) X10*3/uL Abs Immat Gran (auto) 0.01 (0.00-0.03) X10*3/uL Absolute Neuts (auto) 2.7 (2.0-8.3) x10*3/uL Absolute Nucleated RBC 0.000 (0.0-0.012) X10*3/uL Nucleated RBC % (auto) 0.0 (0.0-0.2) /100WBC Hold Purple Top SEE NOTE PT 12.5 (9.9-13.0) SEC INR 1.1 (0.9-1.1) Sodium (135-145) mmol/L Potassium (3.3-5.1) mmol/L Chloride (96-108) mmol/L Carbon Dioxide (22-29) mmol/L Anion Gap (12-20) BUN (9-16) mg/dL Creatinine (0.5-1.4) mg/dL Estim Creat Clear Calc Estimated GFR Random Glucose (60-115) mg/dL Calcium (8.4-10.2) mg/dL Magnesium (1.6-2.6) mg/dL Total Bilirubin (0.0-1.0) mg/dL AST (5-31) U/L ALT (0-31) U/L Alkaline Phosphatase (39-117) U/L Total Creatine Kinase (26-140) U/L Total Protein (6.5-8.0) g/dL Albumin (3.5-5.0) g/dL COVID-19 (MICHELLE) (Negative) COVID-19 Clin Com 07/30/21 07/30/21 Range/Units 09:57 10:25 WBC (4.8-10.8) X10*3/uL RBC (4.20-5.50) X10*6/uL Hgb (12.0-16.0) g/dl Hct (37.0-47.0) % MCV (80.0-98.0) fL MCH (27.0-33.0) pg MCHC (31.0-35.0) g/dl RDW (11.0-16.0) % Plt Count (160-400) X10*3/uL MPV (9.4-12.3) fL Immature Gran % (Auto) (0.0-0.4) % Neut % (Auto) (45-73) % Lymph % (Auto) (20-40) % [place] % (Auto) (2-11) % Eos % (Auto) (0-4) % Baso % (Auto) (0-2) % Lymph # (Auto) (1.2-4.9) X10*3/uL [place] # (Auto) (0.1-1.2) X10*3/uL Eos # (Auto) (0.0-0.4) X10*3/uL Baso # (Auto) (0.0-0.2) X10*3/uL Abs Immat Gran (auto) (0.00-0.03) X10*3/uL Absolute Neuts (auto) (2.0-8.3) x10*3/uL Absolute Nucleated RBC (0.0-0.012) X10*3/uL Nucleated RBC % (auto) (0.0-0.2) /100WBC Hold Purple Top PT (9.9-13.0) SEC INR (0.9-1.1) Sodium 132 L (135-145) mmol/L Potassium 4.8 (3.3-5.1) mmol/L Chloride 105 (96-108) mmol/L Carbon Dioxide 18 L (22-29) mmol/L Anion Gap 14 (12-20) BUN 13 (9-16) mg/dL Creatinine 0.66 (0.5-1.4) mg/dL Estim Creat Clear Calc 106.2 Estimated GFR > 60 Random Glucose 92 (60-115) mg/dL Calcium 8.5 D (8.4-10.2) mg/dL Magnesium 2.6 (1.6-2.6) mg/dL Total Bilirubin 0.3 (0.0-1.0) mg/dL AST 18 (5-31) U/L ALT 35 H (0-31) U/L Alkaline Phosphatase 172 H D (39-117) U/L Total Creatine Kinase 49 D (26-140) U/L Total Protein 7.2 (6.5-8.0) g/dL Albumin 4.0 (3.5-5.0) g/dL COVID-19 (MICHELLE) Negative (Negative) COVID-19 Clin Com See Note Imaging Data CT scan of brain/cervical spine without contrast: Attestation: I personally reviewed and interpreted this imaging study as follows: Radiologist's impression: FINDINGS: Status post previous left parietal/occipital craniotomy. There is stable adjacent encephalomalacia present within the occipital lobe.. No new abnormal extra-axial fluid collection or intracranial hemorrhage is seen. No significant mass effect or midline structure shift is evident. Visualized paranasal sinuses and mastoid air cells unremarkable. There appears be a small lacunar infarct within the anterior limb of the right internal capsule. CT/CT cervical spine wo con IMPRESSION: No acute intracranial abnormality. ? Postsurgical change with encephalomalacia involving the left occipital lobe. FINDINGS: The atlantoaxial and atlanto-occipital articulations are normal. No fracture. No significant intrinsic bony abnormality. The vertebral bodies and posterior elements are normal. The disc heights are preserved. The bony canal and neural foramina are well maintained.? The surrounding soft tissues are normal. The lung apices are clear. There is some spurring seen anteriorly at the C4-C5 and C5-C6 levels. No neural foraminal encroachment seen. ? IMPRESSION: No acute cervical spine fracture. Chest x-ray and Lumbar spine x-ray: Attestation: I personally reviewed and interpreted this imaging study as follows: Radiologist's impression: FINDINGS: PA and lateral views of the chest do not demonstrate any evidence of acute parenchymal disease, pneumothorax, or pleural effusion. Heart normal size. No evidence of pulmonary edema. Powerpack is seen overlying the anterior left chest with wires directed to the left cervical spine region. 3 views of the lumbar spine do not demonstrate evidence of acute fracture, spondylolisthesis, or spondylolysis. Disc spaces are maintained. There appears be some degree of facet arthropathy L4-S1. Pedicles appear intact. There is mild scoliosis convex left. Sacroiliac joints unremarkable. XR/XR chest 2V IMPRESSION: No acute disease within the chest. ? No acute fracture, spondylolisthesis, or spondylolysis identified in the lumbar spine. ECG Data Attestation: I personally reviewed and interpreted this ECG as follows: ECG interpretation date: 07/30/21 ECG interpretation time: 09:37 Interpretation: Normal sinus rhythm with a ventricular rate of 67 and a normal MA interval normal QRS duration normal QT/QTC interval. No acute ischemic change are noted. Similar when compared to prior EKG 04/18/2021 Procedures Laceration Laceration 1: Site: scalp Size (cm): 3 Description: linear and clean Depth: simple, single layer Local Anesthetic: lidocaine 1% Pre-repair: wound explored, irrigated extensively and deep structures intact Skin layer closed with: other (Seven jakub placed no complications patient tolerated procedure well) Critical Care Time Critical Care Time Critical Care Time: Yes Total Critical Care Time: 60 Attestation: I personally attest to this time spent taking care of the patient Discharge Plan Discharge Clinical Impression: Hyponatremia, Epilepsy, Head injury, Lumbar spine strain, Bruising, Laceration of scalp Patient Disposition: Home, Self-Care Instructions: Epilepsy (ED), Head Injury (ED), Hyponatremia (ED), Laceration (ED), Low Back Strain (ED) Prescriptions: No Action sucralfate 1 gram tablet 2 g PO DAILY 90 Days Qty: 180 RF: 0 (DME) walker Misc See Rx Instructions .Route Qty: 1 RF: 0 dicyclomine 20 mg tablet 20 mg PO TID Qty: 90 RF: 6 phenobarbital 64.8 mg tablet 2 tab PO BEDTIME RF: 0 Xcopri 200 mg tablet 200 mg PO DAILY RF: 0 (DME) diaper,brief,adult,disposable Misc See Rx Instructions .ROUTE .MEDSUPPLY Qty: 10 RF: 0 magnesium oxide 400 mg (241.3 mg magnesium) tablet 400 mg PO DAILY RF: 0 Aptiom 600 mg tablet 600 mg PO BID RF: 0 risperidone 1 mg tablet 1 mg PO BID RF: 0 citalopram 20 mg tablet 20 mg PO DAILY RF: 0 Referrals: Yara Rhoades PA [Emergency Midlevel Provider] - 5 days (For staple removal) Lara Mercado MD [Primary Care Provider] - 2 days Print Language: Zambian
[2021-07-30 10:02] LABS: MANUAL DIFF FLAG NO
[2021-07-30 10:12] LABS: INTERNATIONAL NORM RATIO 1.1 (0.9-1.1); Prothrombin Time 12.5 SEC (9.9-13.0)
[2021-07-30 10:13] LABS: Basophils Percent Auto 0.5 % (0-2); Eosinophils Percent Auto 0.7 % (0-4); Hematocrit 38.5 % (37.0-47.0); Hemoglobin 12.6 g/dl (12.0-16.0); Imm Gran Abs Auto 0.01 X10*3/uL (0.00-0.03); Imm Gran Pct Auto 0.2 % (0.0-0.4); Lymphocytes Percent Auto 24.3 % (20-40); Mean Corpuscular HGB Conc 32.7 g/dl (31.0-35.0); Mean Corpuscular Hemoglobin 31.3 pg (27.0-33.0); Mean Corpuscular Volume 95.8 fL (80.0-98.0); Mean Platelet Volume 9.4 fL (9.4-12.3); Monocytes Absolute Auto 0.4 X10*3/uL (0.1-1.2); Monocytes Percent Auto 9.7 % (2-11); Neutrophils Absolute Auto 2.7 x10*3/uL (2.0-8.3); Neutrophils Percent Auto 64.6 % (45-73); Platelet Count 194 X10*3/uL (160-400); Red Blood Count 4.02 X10*6/uL (4.20-5.50); White Blood Count 4.1 X10*3/uL (4.8-10.8)
[2021-07-30] MEDS: Acetaminophen 325 MG TABLET 975 MG PO (10:17)
[2021-07-30 10:20] LABS: Alanine Aminotransferase 35 U/L (0-31); Alkaline Phosphatase 172 U/L (39-117); Anion Gap 14 (12-20); Aspartate Amino Transferase 18 U/L (5-31); Bilirubin Total 0.3 mg/dL (0.0-1.0); Blood Urea Nitrogen 13 mg/dL (9-16); Calcium 8.5 mg/dL (8.4-10.2); Carbon Dioxide 18 mmol/L (22-29); Chloride 105 mmol/L (96-108); Creatinine Clr Calc Pharmacy 106.2; Estimated Glomerular Filt Rate > 60; Glucose Random 92 mg/dL (60-115); Magnesium 2.6 mg/dL (1.6-2.6); Potassium 4.8 mmol/L (3.3-5.1); Sodium 132 mmol/L (135-145); Total Protein 7.2 g/dL (6.5-8.0)
[2021-07-30 10:45] LABS: COVID-19 Test Negative (Negative)
[2021-07-30 10:54] VITALS: BP 121/79; PULSE 69; RESP 12; TEMP 36.9; O2SAT 100
[2021-07-30] MEDS: 0.9 % Sodium Chloride 1,000 ML 999 ML IVCONT (11:31)
== END 2021-07-30 13:20 | disposition home or self-care (01) ==
PROVIDERS: Physician Assistant Medical; Emergency Provider Emergency Medicine Emergency Medical Services; PCP Internal Medicine
DX: S01.01XA Laceration without foreign body of scalp, initial encounter (principal); S39.012A Strain of muscle, fascia and tendon of lower back, initial encounter; G40.909 Epilepsy, unspecified, not intractable, without status epilepticus; E87.1 Hypo-osmolality and hyponatremia; M54.2 Cervicalgia; W18.30XA Fall on same level, unspecified, initial encounter; Y93.9 Activity, unspecified; Y92.9 Unspecified place or not applicable; Y99.9 Unspecified external cause status; Z20.822 Contact with and (suspected) exposure to COVID-19; Z79.899 Other long term (current) drug therapy
CPT/HCPCS: 12002; 36415; 70450; 71046; 72100; 72125; 80053; 82550; 83735; 85025; 85610; 87635; 93005; 96360; 99284; 99291

== ENCOUNTER 2021-08-09 07:28 | Outpatient (REF) | payer MEDICARE, MEDICAID, SELFPAY ==
--- NOTE | ~2021-08-09 | XR_ITS ---
EXAMINATION: XR HAND, RIGHT CLINICAL INFORMATION: Fracture fifth finger. Follow-up. COMPARISON: Radiographs right hand 07/26/2021, 07/15/2021 TECHNIQUE: Right hand is imaged in 3 views. FINDINGS: There is generalized osteopenia. Fracture base of head fifth finger proximal phalanx is unchanged in alignment. There is some fine callus formation present. There is no acute fracture or dislocation. No acute bony abnormality. XR/XR hand RT min 3V IMPRESSION: Healing fracture fifth proximal phalanx. No change in alignment.
== END 2021-08-09 07:29 | disposition home or self-care (01) ==
LOC: HO.HOSX 07:28
PROVIDERS: Visit Provider Physician Assistant
DX: S62.611A Displaced fracture of proximal phalanx of left index finger, initial encounter for closed fracture (principal); G40.909 Epilepsy, unspecified, not intractable, without status epilepticus; Z79.899 Other long term (current) drug therapy
CPT/HCPCS: 73130; 99212

== ENCOUNTER 2021-08-11 11:09 | Emergency (ER) | payer MEDICARE, MEDICAID, SELFPAY ==
[2021-08-11 11:35] VITALS: BP 99/55; PULSE 85; RESP 16; TEMP 36.6; O2SAT 97; BMI 29.7
--- NOTE | 2021-08-11 12:01 | ED.RECABL ---
HPI - Recheck/Abnormal Lab/Rx General Chief Complaint: General Medical Stated Complaint: staple removal Time Seen by Provider: 08/11/21 11:43 Source: patient and family Mode of arrival: ambulatory Limitations: language barrier (Thai-speaking) History of Present Illness complaint: suture/staple removal Initial visit (ago): day(s) (12 days) Initial visit for: laceration Returns today for: staple/stitch removal Symptoms since prior visit: no new symptoms Context: planned re-check Associated symptoms: none Related Data Home Medications Medication Instructions Recorded Confirmed phenobarbital 64.8 mg tablet 2 tab PO BEDTIME 09/28/20 06/09/21 eslicarbazepine 600 mg tablet 600 mg PO BID tab 11/04/20 06/09/21 (Aptiom) citalopram 20 mg tablet 20 mg PO DAILY 02/08/21 06/09/21 cenobamate 200 mg tablet (Xcopri) 200 mg PO DAILY tab 06/09/21 06/09/21 magnesium oxide 400 mg (241.3 mg 400 mg PO DAILY 06/09/21 06/09/21 magnesium) tablet risperidone 1 mg tablet 1 mg PO BID tab 06/09/21 06/09/21 cenobamate (Xcopri Maintenance mg PO 06/28/21 Pack) cenobamate 150 mg tablet (Xcopri) mg PO 06/28/21 pantoprazole 40 mg tablet,delayed 40 mg PO DAILY 06/28/21 release phenobarbital 32.4 mg tablet 32.4 mg PO QID 06/28/21 gabapentin 100 mg capsule 300 mg PO TID cap 07/26/21 Previous Rx's Medication Instructions Recorded diaper,brief,adult,disposable #10 ea 11/24/20 sucralfate 1 gram tablet 2 g PO DAILY 90 Days #180 tab 02/15/21 walker #1 ea 04/23/21 dicyclomine 20 mg tablet 20 mg PO TID #90 tab 06/03/21 Allergies Allergy/AdvReac Type Severity Reaction Status Date / Time Iodinated Contrast Media Allergy Intermediate RED ALL Verified 08/11/21 11:38 [IV Dye, Iodine Containing] OVER NAUSEA AND LOST RESPIRATIONS Penicillins [PENICILLINS] Allergy Intermediate Unknown Verified 08/11/21 11:38 phenytoin [From Dilantin] Allergy Intermediate gum Verified 08/11/21 11:38 swelling lamotrigine [From Lamictal] Allergy Unknown unknown Verified 08/11/21 11:38 Review of Systems Review of Systems: Constitutional : No Fever, No Chills, Cardiovascular : No Chest Pain, No SOB Respiratory : No Dyspnea Gastrointestinal : No abdominal pain Musculoskeletal : No Joint Swelling Skin : positive skin laceration that is healing No Foreign bodies, No rash, No surrounding erythema Neuro : No Weakness, No Numbness/tingling Psych : No SI/HI/thoughts of self injury Yes all other systems are reviewed and are negative [facility] Past Medical History Attestation statement: The following information was validated with the patient. Medical History Class 1 obesity due to excess calories with body mass index (BMI) of 30.0 to 30.9 in adult Depression Encephalomalacia Epilepsy Expressive aphasia Gait instability GERD (gastroesophageal reflux disease) Hyponatremia Hypotension Mild recurrent major depression Overactive bladder Polyarthralgia Pre-op evaluation Pre-op examination Screening for cervical cancer Seizures Unsteady gait Urge urinary incontinence Surgical History H/O prior ablation treatment History of section History of skin graft History of tubal ligation History of tumor Surgical history unknown Family History Family History Father Heart problem Mother Diabetes Low blood pressure Family/Other Substance use disorder Mental health disorder Social History Social History Household Members: Unknown / Unable to assess Housing: Apartment Alcohol intake: never Patient Tobacco Use Status: Never used Tobacco Tobacco use type: Cigarette e-Cigarette/Vaping Use: Never Used Second Hand Smoke Exposure: No Advance Directives: Yes Advance Directives Information Provided: Yes Advance Directives on File: No Advance Directives Date on File: 04/19/21 Patient : No service: No Current occupational status: disabled Current occupation: rt handed Physical Exam Vital Signs: Vital Signs: Last Vital Signs Temp 98 F 08/11/21 11:35 Pulse 85 08/11/21 11:35 Resp 16 08/11/21 11:35 BP 99/55 L 08/11/21 11:35 Pulse Ox 97 08/11/21 11:35 Body Mass Index 29.7 vital signs have been reviewed as normal and appeared to be correct. Blood pressure normal Heart rate normal. Respiration rate normal. Temperature normal. Oxygen saturation normal. Appearance: Alert. Oriented X3. No acute distress. Head: Normal external exam. Normocephalic. Atraumatic. To the posterior occipital aspect of the scalp patient has [address] No purulent drainage or surrounding erythema noted. Eyes: PERRLA. EOMI. Conjunctiva and sclera normal. Eyelids normal. ENT: Pharynx normal. Uvula midline. Moist mucous membranes. Neck: Normal inspection. Neck supple. FROM. CVS: Normal heart rate and rhythm. Respiratory: No respiratory distress. Painless inspiration. Skin: Skin warm and dry. Normal skin color. Normal skin turgor. No rashes/lesions/lacerations noted. Extremities: No lower extremity edema. Extremities exhibit normal range of motion. Extremities nontender. Neuro: Oriented X 3. No motor deficit. No sensory deficit. Reflexes normal. Normal steady gait. No focal neuro deficits noted. Vascular: + radial pulses/+ 2 distal pedal pulses/+2 dorsalis pedis b/l. Normal cap refill. No cyanosis noted to upper extremity nails and lower extremity toes nails. Course Course Course Narrative: 55-year-old female presenting to the ED for staple removal she was seen here approximately 12 days ago were 7 jakub were placed. Patient now status post staple removal. Patient tolerated procedure well. No complications. Will DC home with verbal discharge as daughter reports that she has to go and roller picker her son that is approximately 30 minutes away from here and she is due there for 12 30 therefore instructed her to return if any new or worsening symptoms follow up with primary care provider. Patient and daughter at bedside understand agree this plan. MDM - Recheck/Abnormal Lab/Rx Medical Records Attestation: I reviewed the patient's medical records. Discharge Plan Discharge Clinical Impression: Removal of jakub Patient Disposition: Home, Self-Care Prescriptions: No Action sucralfate 1 gram tablet 2 g PO DAILY 90 Days Qty: 180 RF: 0 (DME) walker Misc See Rx Instructions .Route Qty: 1 RF: 0 dicyclomine 20 mg tablet 20 mg PO TID Qty: 90 RF: 6 phenobarbital 64.8 mg tablet 2 tab PO BEDTIME RF: 0 Xcopri 200 mg tablet 200 mg PO DAILY RF: 0 (DME) diaper,brief,adult,disposable Misc See Rx Instructions .ROUTE .MEDSUPPLY Qty: 10 RF: 0 magnesium oxide 400 mg (241.3 mg magnesium) tablet 400 mg PO DAILY RF: 0 Aptiom 600 mg tablet 600 mg PO BID RF: 0 risperidone 1 mg tablet 1 mg PO BID RF: 0 citalopram 20 mg tablet 20 mg PO DAILY RF: 0 Referrals: Lara Mercado MD [Primary Care Provider] - 2 days
== END 2021-08-11 12:08 | disposition home or self-care (01) ==
PROVIDERS: Emergency Provider Emergency Medicine Emergency Medical Services; PCP Internal Medicine
DX: Z48.02 Encounter for removal of sutures (principal); S01.01XD Laceration without foreign body of scalp, subsequent encounter; X58.XXXD Exposure to other specified factors, subsequent encounter
CPT/HCPCS: 99283

== ENCOUNTER 2021-08-23 07:11 | Outpatient (REF) | payer MEDICARE, MEDICAID, SELFPAY | END 2021-08-23 07:12 | disposition home or self-care (01) | LOC: HO.HOSX 07:11 | PROVIDERS: Visit Provider Physician Assistant | DX: Z13.89 Encounter for screening for other disorder (principal) ==

== ENCOUNTER 2021-08-30 07:14 | Outpatient (REF) | payer MEDICARE, MEDICAID, SELFPAY ==
--- NOTE | ~2021-08-30 | XR_ITS ---
EXAMINATION: XR HAND, RIGHT CLINICAL INFORMATION: Pain COMPARISON: Previous x-ray most recent July 2021 TECHNIQUE: PA, lateral, and oblique views of the right hand. FINDINGS: The healing fracture of the proximal phalanx of the fifth finger appears unchanged. Transverse fracture line is still seen. There is some bony callus formation. No other fracture is seen. The bones are osteopenic. There are degenerative changes at the first FDC joint and, DIP joint of the second finger and radiocarpal joint. Soft tissues are unremarkable. XR/XR hand RT min 3V IMPRESSION: No change in the fracture of the proximal phalanx of the fifth finger.
== END 2021-08-30 07:15 | disposition home or self-care (01) ==
LOC: HO.HOSX 07:14
PROVIDERS: Visit Provider Physician Assistant
DX: S62.616A Displaced fracture of proximal phalanx of right little finger, initial encounter for closed fracture (principal); K21.9 Gastro-esophageal reflux disease without esophagitis; K58.9 Irritable bowel syndrome, unspecified; R19.7 Diarrhea, unspecified
CPT/HCPCS: 73130; 99212

== ENCOUNTER 2021-08-30 11:00 | Outpatient (RCR) | payer MEDICARE, MEDICAID, SELFPAY ==
--- NOTE | 2021-06-23 17:11 | MHC.SL.SOA ---
Referring Provider: Lara Rivas M.D. Reason for Referral: Aphasia Date of Plan of Treatment:06/14/21 Onset of Symptoms/Illness:12/01/17 Date Treatment Started:12/01/20 Medical Diagnosis:Seizures, head injury Primary Speech Language Diagnosis:R47.01 Aphasia Secondary Speech Language Diagnosis:R41.841 Cognitive communication disorder Reason for Visit:71175 Individual Treatment Subjective:Patient attended this speech therapy session accompanied by her daughter. Appropriate safety precautions included social distancing, mask wearing, and hand hygiene. Patient has had a two month long break from speech therapy due to her recent hospitalization. Patient was reportedly hospitalized at [facility] for a few days and then transferred to [place] for 3 weeks. She spent several weeks at [facility], where she was seen by a speech therapist. Per discharge paperwork from [facility], patient transitioned to home with resumption of [facility] services and speech therapy and physical therapy in the outpatient setting once discharged from [facility]. Per PT notes, patient was seen by PT for: impaired gait, balance deficits, bed mobility deficits, cognitive deficits, coordination/proprioception deficits, impaired activity tolerance, impaired judgment/safety awareness, strength deficits, transfer deficits, transition deficits. With her speech therapist at [facility], patient worked on orientation questions, using a daily account planner/calendar, making lists, word games/cross word puzzles, overarticulation to compensate for dysarthria, etc. Patient's food was reportedly diced up and patient received assistance with tray set up from nursing staff. At the beginning of each session, patient is fully engaged and loses focus as the session progresses. Thus, continue to recommend shorter therapy sessions. Patient is Latvian-speaking. Objective: Patient completed the Cognitive Linguistic Quick Test (CLQT) over the course of several sessions in March. It is a measure of her cognitive-linguistic skills. Her performance is as follows: Task: Patient?s Score, Criterion Cut Score, Interpretation Personal Facts: 4, 8, IMPAIRED Symbol Cancellation: 0, 11, IMPAIRED Confrontational Namin, 10, IMPAIRED Clock Drawin, 12, IMPAIRED Story Retellin, 6, IMPAIRED Symbol Trails: 0, 9, IMPAIRED Generative Namin, 5, IMPAIRED Design Memory: 2, 5, IMPAIRED Mazes: 0, 7, IMPAIRED Design Generation: 0, 6, IMPAIRED Task scores were summed together based on cognitive domain. Cognitive Domain scores are as follows: Cognitive Domain: Domain Score, Severity Range, Severity Rating Attention: 12, Severe Impairment, 1 Memory: 73, Severe Impairment, 1 Executive Functions: 1, Severe Impairment, 1 Language: 18, Severe Impairment, 1 Visuospatial Skills: 8, Severe Impairment, 1 Assessment:Patient?s Composite Severity Rating of 1 is interpreted as a SEVERE COGNITIVE IMPAIRMENT according to her performance on this assessment measure. Patient was able to provide some personal facts, including her previous address and year of . However, she did not correctly recall her age or her current address. Her daughter reported that she often completes paperwork for her mother, and that her mother likely did not have the opportunities to learn her current address for that reason. Patient exhibited difficulty sustaining attention to assessment tasks and appeared to forget what she was doing. She required several repetitions of task instructions and additional examples throughout this assessment. During a confrontation naming task, patient correctly named 9 out of 10 items. Patient exhibited difficulty recalling details about a short paragraph, but correctly answered 3/3 yes/no questions about that paragraph. Notes: Next session is scheduled for Sunday06/21/21 at 11am. Patient continues to benefit from shorter therapy sessions (30 minutes or however long the patient tolerates) due to fatigue. Recommend the following goals: LONG-TERM GOALS: 1.Patient will use functional communication skills for social interactions (e.g., greetings, social etiquette, and short questions/simple sentences) with both familiar and unfamiliar partners with 80% success. 2. Patient will complete selected subtests from the [place] Diagnostic Aphasia Examination (BDAE), [place] Naming Test (BNT), and Communication Activities of Daily Living (CADL) to further inform goals. Plan: Goal # : 1.1. Patient will correctly write or state her full name, date of , age, and current address when provided with minimal verbal cues in 80% of trials. Status of Goal: New Goal Goal # : 1.2. Patient will recall 4/5 memory strategies (i.e. writing lists/calendar/reminders; visualization, verbal rehearsal) given intermittent moderate verbal and minimal written cues. Status of Goal: New Goal Goal # : 1.3. Patient will sustain attention to a 5 minute task in a quiet environment given frequent moderate verbal cues to attend. The patient will complete sentences with an appropriate word at 80% accuracy given minimal verbal phonemic cues. Status of Goal: New Goal Goal # : 1.4. The patient will name items from description at 80% accuracy given frequent maximum verbal and frequent maximum phonemic cues. Status of Goal: New Goal Seen by: Graduate/Clinical Fellow: No Supervisory Statement: f_Reg Query Last Value , [facility] Speech Language Pathologist: Kayce Chavarria M.A., CCC-[employer] MEMBER
== END 2021-10-07 13:57 | disposition home or self-care (01) ==
LOC: HO.SH 11:00
PROVIDERS: Visit Provider Internal Medicine
DX: R47.01 Aphasia (principal); R41.841 Cognitive communication deficit
CPT/HCPCS: 92507

== ENCOUNTER 2021-10-25 10:38 | Outpatient (REF) | payer MEDICARE, MEDICAID, SELFPAY ==
--- NOTE | ~2021-10-25 | XR_ITS ---
EXAMINATION: XR CERVICAL SPINE CLINICAL INFORMATION: Cervicalgia COMPARISON: CT cervical spine dated 07/30/2021 TECHNIQUE: 4 views of the cervical spine were obtained. FINDINGS: No acute fracture or traumatic malalignment. Endplate osteophytes present throughout cervical spine, most notably from C4 through C7. Vertebral body heights maintained. Mild facet arthropathy throughout cervical spine. Vagal nerve stimulator redemonstrated on the left. Paraspinal soft tissues otherwise unremarkable. XR/XR cervical spine 3V IMPRESSION: No acute findings. Cervical spondylosis as described.
== END 2021-10-25 10:39 | disposition home or self-care (01) ==
LOC: HO.LAB 10:38
PROVIDERS: PCP Internal Medicine; Visit Provider Nurse Practitioner Family
DX: R56.9 Unspecified convulsions (principal); M54.2 Cervicalgia; Z79.899 Other long term (current) drug therapy
CPT/HCPCS: 36415; 72040; 80184

== ENCOUNTER 2021-10-27 13:00 | Outpatient (RCR) | payer MEDICARE, MEDICAID, SELFPAY ==
--- NOTE | 2021-10-11 14:09 | MHC.OT.OEV ---
[address] [phone] F: [phone] Occupational Therapy Evaluation Diagnosis: Right small finger prox phal fracture Date of Onset: 07/05/21 Attending Provider: Kayla Vaughn PA-C Prescribed Treatment: Eval and Treat MD Follow Up Appointment: History of Current Condition: 07/05/21 pt has a seizure in home and fell onto her right hand, resulting in nondisplaced small finger proximal phalanx fracture. She was initially spinted and has had several ortho follow ups w/ referral to OT, but now in for initial assessment. 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 of the time in her room, enjoys doing light cleaning Living Situation, Family and/or Social Support: Lives with daughter, family does cooking, cleaning and driving Current Level of Function and Occupation Self Care, Employment, Leisure: Difficulty w/ daily activities due to seizures, also with more recent body aches after several seizures w/ falls to the ground Sleep: Difficulty falling asleep Driving: Family drives Pain Assessment Pain Score: 3 Pain Scale Used: Numeric (0 - 10) Pain Location and Description: Right small finger PIP, low pain at rest, increases w/ use Aggravating Factors: Worsens w/ forceful us, pushing objects Alleviating Factors: Tylenol PRN Skin and Soft Tissue Assessment Comments: Dry skin, right small finger edema Sensory Assessment Comments: Denies sensory changes Edema Assessment Comments: Prox phal R 5.5 cm L 5.1 cm Dexterity Assessment Comments: Pt reports she drops items at times (using utensils) AROM(PROM) Strength Shoulder Flexion: Extension: Abduction: Internal Rotation: External Rotation: Comments: WFL Flexion: Extension: Abduction: Internal Rotation: External Rotation: Comments: Elbow Flexion: Extension: Pronation: Supination: Comments: WFL Flexion: Extension: Pronation: Supination: Comments: Wrist Flexion: Extension: Ulnar Deviation: Radial Deviation: Comments: WFL Flexion: Extension: Ulnar Deviation: Radial Deviation: Comments: Thumb Thumb CMC Flexion: Thumb MCP Flexion: Thumb IP Flexion: Radial Abduction: Palmar Abduction: Patoka (Kapandji 0-10): Comments: WFL Digits Index MCP: PIP: DIP: Long MCP: PIP: DIP: Ring MCP: PIP: DIP: Small MCP: R 80 L 86 PIP: R 80 L 100 DIP: R 55 L 70 Comments: R D2-D4 tip-palm R D5 1cm tip-palm Gross Grasp: R 3lb L 39lb Lateral Pinch: Two-Point Pinch: Three-Jaw Raymond: Comments: Patient Education 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 Patient demonstrates Patient verbalizes Family/SO demonstrates Family/SO verbalizes Needs reinforcement Barriers to Learning: Other Readiness for Learning: Accepting Who was educated? Patient Family/spouse Comments: Daughter present and supportive. Pt w/ flat affect and hx of mental health problems and seizures, difficulty at times w/ cognition/communication. Able to follow simple cues in clinic. Plan of Care Assessment: 55 yo female presents three months s/p right small finger prox phalanx fx s/p seizure and fall at home. She has been followed by [facility] and cleared for OT. On assessment, she reports overall low pain and has some limited range, but significantly decreased strength and more difficulty w/ daily activities at home. She will benefit from cont'd therapy services to improve pain, range and strength w/ goal of Ind w/ daily activities. STG Duration: 2 weeks Short Term Goals: Ind w/ HEP Ind w/ use of heat modalities for pain relief Ind w/ edema reduction techniques Pt to demo full small finger tip-palm active range LTG Duration: 4 weeks Skilled Nursing Goals: Pain free small finger w/ lighjt ADL tasks Gross grasp >20lb Small finger IP range within 5 degrees of left Frequency and Duration: The patient will be seen 2x/wk for 4 weeks Treatment Plan: Therapeutic Exercise Therapeutic Activity Home Exercise Program Patient Education Edema Control ADL Training Paraffin Fluidotherapy MHP Cold Packs Joint Mobilization Soft Tissue Mobilization Kinesiotaping Electronically Signed By: Kayleigh Cage, OTR/L CHT Reviewed/agree with student documentation: Therapist: Please sign and return to therapist, Thank you for your referral.
--- NOTE | 2021-10-27 13:35 | MHC.OT.DC ---
[address] [phone] F: [phone] Occupational Therapy Discharge Note Provider: Mukesh Chamberlain PA-C Diagnosis: Right small finger prox phal fracture Date of Evaluation: 10/11/21 Date of Discharge: 10/27/21 Treatments to Date: 4 Discharge Status: Achieved Goals Improved Function Independent with HEP Discharge Summary: Nanci was referred to OT for a right small finger prox phal fx. She has done well in therapy and goals have been met. Currently reports no pain at rest or with normal daily activities. Pt was observed to have mild triggering of right long finger, we have given her an oval-8 for nighttime wear and educated on general management. Family supportive. Electronically Signed By: JACY Davila/Eliud CHT Reviewed/agree with student documentation: Yes Therapist: Please Sign and return to therapist, thank you for your referral.
== END 2021-10-27 13:36 | disposition home or self-care (01) ==
LOC: HO.OT 13:00
PROVIDERS: PCP Internal Medicine; Visit Provider Physician Assistant
DX: S62.610D Displaced fracture of proximal phalanx of right index finger, subsequent encounter for fracture with routine healing (principal)
CPT/HCPCS: 97110; 97140; 97165

== ENCOUNTER 2021-10-27 14:00 | Outpatient (RCR) | payer MEDICARE, MEDICAID, SELFPAY ==
--- NOTE | 2021-12-02 13:35 | MHC.SLORD ---
Speech Language Pathology Order Status: Patient's attended her speech therapy session on 11/24/21 with her brother and her daughter. Patient's daughter reports that patient was hospitalized for two weeks and discharged this past weekend. During her hospitalization, patient was reportedly very confused and refusing care. Patient's family reports that her memory and confusion has been progressively getting worse, and is impacting her on a daily basis. Patient is seen by a visiting nurse at home. During the past few months patient has often refused to participate during our sessions. During the session on 11/24/21, she did not recognize the clinician and stood up attempting to leave. Her daughter says this is how she's been on a daily basis. Session was cancelled. Patient is discharged from speech therapy at this time, as focus is on further workup and treatment with psychiatry and neurology. The clinician called patient's PCP on 11/24/21 to notify them of family's concerns.
== END 2021-11-25 11:47 | disposition home or self-care (01) ==
LOC: HO.SH 14:00
PROVIDERS: PCP Internal Medicine; Visit Provider Internal Medicine
DX: R26.81 Unsteadiness on feet (principal)
CPT/HCPCS: 92507

== ENCOUNTER → 2021-11-22 13:22 | Outpatient (BNVA) | payer MEDICARE, MEDICAID, SELFPAY | PROVIDERS: PCP Internal Medicine; Visit Provider Physician Assistant | DX: S62.646D Nondisplaced fracture of proximal phalanx of right little finger, subsequent encounter for fracture with routine healing (principal) | CPT/HCPCS: 99212 ==

== ENCOUNTER 2021-11-29 13:02 | Outpatient (REF) | payer MEDICARE, MEDICAID, SELFPAY ==
[2021-11-29 13:41] LABS: Hematocrit 37.1 % (37.0-47.0); Hemoglobin 11.7 g/dl (12.0-16.0); Mean Corpuscular HGB Conc 31.5 g/dl (31.0-35.0); Mean Corpuscular Volume 98.1 fL (80.0-98.0); Mean Platelet Volume 9.9 fL (9.4-12.3); Platelet Count 195 X10*3/uL (160-400); Red Blood Count 3.78 X10*6/uL (4.20-5.50); Red Cell Distribution Width 13.2 % (11.0-16.0); White Blood Count 4.3 X10*3/uL (4.8-10.8)
[2021-11-29 14:19] LABS: Alanine Aminotransferase 38 U/L (0-31); Albumin Level 3.9 g/dL (3.5-5.0); Alkaline Phosphatase 127 U/L (39-117); Anion Gap 12 (12-20); Aspartate Amino Transferase 26 U/L (5-31); Bilirubin Total 0.2 mg/dL (0.0-1.0); Blood Urea Nitrogen 13 mg/dL (9-16); Calcium 9.4 mg/dL (8.4-10.2); Carbon Dioxide 31 mmol/L (22-29); Chloride 101 mmol/L (96-108); Estimated Glomerular Filt Rate > 60; Glucose Random 90 mg/dL (60-115); Potassium 5.2 mmol/L (3.3-5.1); Sodium 139 mmol/L (135-145); Total Protein 7.2 g/dL (6.5-8.0)
== END 2021-11-29 13:03 | disposition home or self-care (01) ==
LOC: HO.LAB 13:02
PROVIDERS: PCP Internal Medicine; Visit Provider Nurse Practitioner Family
DX: Z13.89 Encounter for screening for other disorder (principal)
CPT/HCPCS: 36415; 80053; 84443; 85027

== ENCOUNTER 2021-11-29 16:42 | Emergency (ER) | payer MEDICARE, MEDICAID, SELFPAY ==
[2021-11-29 17:23] VITALS: BP 104/65; PULSE 82; RESP 18; TEMP 36.9; O2SAT 100; BMI 28.1
[2021-11-29 19:44] LABS: MANUAL DIFF FLAG NO
[2021-11-29 19:45] LABS: Basophils Percent Auto 0.6 % (0-2); Eosinophils Absolute Auto 0.3 X10*3/uL (0.0-0.4); Eosinophils Percent Auto 5.9 % (0-4); Hematocrit 35.7 % (37.0-47.0); Hemoglobin 11.5 g/dl (12.0-16.0); Imm Gran Abs Auto 0.01 X10*3/uL (0.00-0.03); Imm Gran Pct Auto 0.2 % (0.0-0.4); Lymphocytes Absolute Auto 1.4 X10*3/uL (1.2-4.9); Lymphocytes Percent Auto 28.8 % (20-40); Mean Corpuscular HGB Conc 32.2 g/dl (31.0-35.0); Mean Corpuscular Hemoglobin 31.4 pg (27.0-33.0); Mean Corpuscular Volume 97.5 fL (80.0-98.0); Mean Platelet Volume 9.6 fL (9.4-12.3); Monocytes Absolute Auto 0.5 X10*3/uL (0.1-1.2); Monocytes Percent Auto 10.5 % (2-11); Neutrophils Absolute Auto 2.6 x10*3/uL (2.0-8.3); Platelet Count 187 X10*3/uL (160-400); Red Blood Count 3.66 X10*6/uL (4.20-5.50); White Blood Count 4.8 X10*3/uL (4.8-10.8)
[2021-11-29 19:57] LABS: Anion Gap 10 (12-20); Blood Urea Nitrogen 11 mg/dL (9-16); Calcium 8.8 mg/dL (8.4-10.2); Carbon Dioxide 32 mmol/L (22-29); Chloride 101 mmol/L (96-108); Creatinine Clr Calc Pharmacy 111.7; Estimated Glomerular Filt Rate > 60; Glucose Random 75 mg/dL (60-115); Potassium 4.3 mmol/L (3.3-5.1); Sodium 139 mmol/L (135-145)
[2021-11-29 20:57] LABS: Appearance Urine CLEAR; Color Urine YELLOW; Glucose Urine UA NEG (NEG); Leukocyte Esterase Urine 1+ (NEG); Nitrite Urine NEG (NEG); PH 7.5 (5.0-8.0); UACC Culture Trigger YES; Urine Blood NEG (NEG); Urine Ketones NEG (NEG); Urine Protein NEG (NEG-TRACE)
[2021-11-29 21:19] LABS: RBC Urine 0 /HPF (0)
[2021-11-29 21:20] LABS: Bacteria Urine 1+ /LPF; Squamous Epithelial Cell Urine 2+ /LPF
[2021-11-29 22:22] VITALS: BP 130/65; PULSE 88; RESP 16; TEMP 36.6; O2SAT 96
--- NOTE | 2021-11-29 22:29 | ED.GENADULT ---
HPI - General Adult General Chief complaint: General Medical Stated complaint: unable to urinate Time Seen by Provider: 11/29/21 22:25 Source: patient and family (Daughter) Mode of arrival: ambulatory History of Present Illness HPI narrative: Patient seen earlier in the day by her primary care provider and an excerpt of that note is provided below: 1057 Patient is a 55-year-old female who presents today to follow-up on [facility] discharge.? Admission date 11/08/2021, discharge date 11/19/2021.? All information was provided by patient's daughter Hamida.? Patient was admitted to psych unit due to psychiatric problems.? Patient also did have rib pain which have resolved.? Daughter reports that patient had 3 falls in the hospital.? No available discharge paperwork from [facility], this was requested prior to the visit.? Medical history significant for IBS, overactive bladder, GERD, depression, epilepsy, gait instability, and polyarthralgia among others.? Patient has psychiatric problems where she says that someone is in the house and everybody has COVID .? Patient was started on Invega injection by her psychiatrist, patient has received first injection 4 days ago.? Daughter reports that patient became drowsy yesterday.? She cannot stay awake.? Daughter reports seizure day before yesterday.? Patient is followed by [facility] and has phone appointment today at 16:00.? Patient is on gabapentin 300 mg b.i.d. and 600 mg at bedtime.? Patient is also on risperidone 1 mg b.i.d. Gabapentin and antiseizure medications are managed by Neurology.? Patient denies difficulty breathing or chest pain.? No issues swallowing.? Patient is a [place]-speaking and her daughter was helping with interpretation, although most of the history was provided by daughter.? Patient was able to answer few questions. ? Family was able to bring in medication list and it was noticed to hold gabapentin if drowsiness, patient has received gabapentin yesterday and today. ? 55-year-old female presents here in the emergency room with her daughter for complaints of inability to urinate for 2 hours. This has not been associated with any fever, chills, lower abdominal pain. Related Data Home Medications Medication Instructions Recorded Confirmed phenobarbital 64.8 mg tablet 2 tab PO BEDTIME 09/28/20 11/29/21 eslicarbazepine 600 mg tablet 600 mg PO BID tab 02/11/21 03/08/22 (Aptiom) cenobamate 200 mg tablet (Xcopri) 200 mg PO DAILY tab 06/09/21 11/29/21 risperidone 1 mg tablet 1 mg PO BID tab 06/09/21 11/29/21 multivitamin (Daily Multi-Vitamin) 1 tab PO DAILY 10/25/21 11/29/21 oxycodone-acetaminophen 5 mg-325 1 tab PO Q8H PRN 10/25/21 11/29/21 mg tablet gabapentin 100 mg capsule 300 mg PO TID cap 11/29/21 11/29/21 paliperidone palmitate 234 mg/1.5 mg IM 11/29/21 11/29/21 mL intramuscular syringe (Invega [employer]) Previous Rx's Medication Instructions Recorded diaper,brief,adult,disposable #10 ea 11/24/20 walker #1 ea 04/23/21 magnesium oxide 400 mg (241.3 mg 400 mg PO DAILY 90 Days #90 tab 08/24/21 magnesium) tablet dicyclomine 10 mg capsule 20 mg PO QID 30 Days #240 cap 08/30/21 pantoprazole 40 mg tablet,delayed 40 mg PO DAILY 30 Days #30 tab 08/30/21 release sucralfate 1 gram tablet 2 g PO DAILY 90 Days #180 tab 08/30/21 Allergies Allergy/AdvReac Type Severity Reaction Status Date / Time Iodinated Contrast Media Allergy Intermediate RED ALL Verified 11/29/21 12:10 [IV Dye, Iodine Containing] OVER NAUSEA AND LOST RESPIRATIONS Penicillins [PENICILLINS] Allergy Intermediate Unknown Verified 11/29/21 12:10 phenytoin [From Dilantin] Allergy Intermediate gum Verified 11/29/21 12:10 swelling lamotrigine [From Lamictal] Allergy Unknown unknown Verified 11/29/21 12:10 Review of Systems Review of Systems: Pertinent positives and negatives as stated in HPI 10 point review of symptoms is otherwise negative. [facility] Past Medical History Source: nursing notes reviewed Medical History Class 1 obesity due to excess calories with body mass index (BMI) of 30.0 to 30.9 in adult Depression Encephalomalacia Epilepsy Expressive aphasia Gait instability GERD (gastroesophageal reflux disease) Hyponatremia Hypotension Mild recurrent major depression Overactive bladder Polyarthralgia Pre-op evaluation Pre-op examination Screening for cervical cancer Seizures Unsteady gait Urge urinary incontinence Surgical History H/O prior ablation treatment History of section History of skin graft History of tubal ligation History of tumor Surgical history unknown Family History Family History Father Heart problem Mother Diabetes Low blood pressure Family/Other Substance use disorder Mental health disorder Social History Social History Household Members: Unknown / Unable to assess Housing: Apartment Alcohol intake: never Patient Tobacco Use Status: Never used Tobacco Tobacco use type: Cigarette e-Cigarette/Vaping Use: Never Used Second Hand Smoke Exposure: No Use of substances other than those prescribed or required for medical reasons: No Advance Directives: No Advance Directives Information Provided: Yes Advance Directives Date on File: 04/19/21 service: No Current occupational status: disabled Current occupation: rt handed Cognitive needs: Yes (walker) Hearing needs: No Vision needs: Yes (glasses) Physical Exam ED Vital Signs: Vital Signs - 24 hr 11/29/21 17:23 11/29/21 22:22 11/29/21 22:33 Temperature 98.4 F 97.9 F 97.8 F Pulse Rate 82 88 78 Respiratory Rate 18 16 16 Blood Pressure 104/65 130/65 135/76 Pulse Oximetry 100 96 100 BMI result Body Mass Index 28.1 VITAL SIGNS: Reviewed. GENERAL: Well developed, well nourished, in no acute distress. HEAD: Normocephalic/atraumatic EYES: PERRLA, EOMI LUNGS: Normal breath sounds. No adventitious sounds or accessory muscle use. SpO2<100> CARDIOVASCULAR: Regular rate and rhythm without noted murmurs ABDOMEN: Soft, non-tender, non-distended with bowel sounds. SKIN: Inspection of the skin reveals no rashes NEUROLOGIC: Alert and oriented x 4. Strength and sensation to light touch were grossly intact x 4. Course Course Course Narrative: 55-year-old female who presents with difficulty in providing a urine sample earlier at the doctor's office and now complains she cannot void. On review of bladder scan there are only of 145 cc in the bladder. This result was discussed with the patient and daughter at the bedside and they were reassured 2 increase water intake and there will likely be no issue with providing the urine sample. Doubt urinary tract infection as there are no associated symptoms. Patient discharged home in stable condition. Medical Decision Making Lab Data Result diagrams: 11/29/21 19:37 11/29/21 19:37 Labs: Lab Results 11/29/21 11/29/21 11/29/21 Range/Units 19:37 19:37 20:50 WBC 4.8 (4.8-10.8) X10*3/uL RBC 3.66 L (4.20-5.50) X10*6/uL Hgb 11.5 L (12.0-16.0) g/dl Hct 35.7 L (37.0-47.0) % MCV 97.5 (80.0-98.0) fL MCH 31.4 (27.0-33.0) pg MCHC 32.2 (31.0-35.0) g/dl RDW 13.0 (11.0-16.0) % Plt Count 187 (160-400) X10*3/uL MPV 9.6 (9.4-12.3) fL Immature Gran % (Auto) 0.2 (0.0-0.4) % Neut % (Auto) 54.0 (45-73) % Lymph % (Auto) 28.8 (20-40) % [place] % (Auto) 10.5 (2-11) % Eos % (Auto) 5.9 H (0-4) % Baso % (Auto) 0.6 (0-2) % Lymph # (Auto) 1.4 (1.2-4.9) X10*3/uL [place] # (Auto) 0.5 (0.1-1.2) X10*3/uL Eos # (Auto) 0.3 (0.0-0.4) X10*3/uL Baso # (Auto) 0.0 (0.0-0.2) X10*3/uL Abs Immat Gran (auto) 0.01 (0.00-0.03) X10*3/uL Absolute Neuts (auto) 2.6 (2.0-8.3) x10*3/uL Absolute Nucleated RBC 0.000 (0.0-0.012) X10*3/uL Nucleated RBC % (auto) 0.0 (0.0-0.2) /100WBC Sodium 139 (135-145) mmol/L Potassium 4.3 (3.3-5.1) mmol/L Chloride 101 (96-108) mmol/L Carbon Dioxide 32 H (22-29) mmol/L Anion Gap 10 L (12-20) BUN 11 (9-16) mg/dL Creatinine 0.64 (0.5-1.4) mg/dL Estim Creat Clear Calc 111.7 Estimated GFR > 60 Random Glucose 75 (60-115) mg/dL Calcium 8.8 D (8.4-10.2) mg/dL Urine Color YELLOW Urine Appearance CLEAR Urine pH 7.5 (5.0-8.0) Ur Specific [place] 1.020 (1.005-1.025) Urine Protein NEG (NEG-TRACE) MG/DL Urine Glucose (UA) NEG (NEG) MG/DL Urine Ketones NEG (NEG) MG/DL Urine Blood NEG (NEG) Urine Nitrite NEG (NEG) Ur Leukocyte Esterase 1+ H (NEG) Urine RBC 0 (0) /HPF Urine WBC 5-9 H (0-4) /HPF Ur Squamous Epith Cells 2+ /LPF Urine Bacteria 1+ /LPF Discharge Plan Discharge Clinical Impression: Dysuria Patient Disposition: Home, Self-Care Instructions: Dysuria (ED) Additional Instructions: 1. Reanudar todos los medicamentos caseros seg?n lo recetado e indicado, excepto la risperidona que el psiquiatra claudia? el d?a de hoy. 2. Aumentar la ingesta de agua. 3. Proporcione la muestra de orina seg?n las instrucciones. 4. Seguimiento con sotomayor proveedor de atenci?n primaria. Prescriptions: No Action (DME) walker Misc See Rx Instructions .Route Qty: 1 0RF Rx Instructions: use as needed daily for gait assistance magnesium oxide 400 mg (241.3 mg magnesium) tablet 400 mg PO DAILY 90 Days Qty: 90 1RF phenobarbital 64.8 mg tablet 2 tab PO BEDTIME 0RF Xcopri 200 mg tablet 200 mg PO DAILY 0RF (DME) diaper,brief,adult,disposable Misc See Rx Instructions .ROUTE .MEDSUPPLY Qty: 10 0RF Rx Instructions: As directed gabapentin 100 mg capsule 300 mg PO TID 0RF Rx Instructions: 600 mg at HS Aptiom 600 mg tablet 600 mg PO BID 0RF risperidone 1 mg tablet 1 mg PO BID 0RF oxycodone-acetaminophen 5-325 mg tablet 1 tab PO Q8H PRN0RF multivitamin [Daily Multi-Vitamin] Tablet 1 tab PO DAILY 0RF Invega Sustenna 234 mg/1.5 mL syringe IM 0RF dicyclomine 10 mg capsule 20 mg PO QID 30 Days Qty: 240 6RF pantoprazole 40 mg tablet,delayed release (DR/EC) 40 mg PO DAILY 30 Days Qty: 30 6RF sucralfate 1 gram tablet 2 g PO DAILY 90 Days Qty: 180 1RF Referrals: Lara Mercado MD [Primary Care Provider] - 2 days Interventions: ED Discharge Assessment Last Done: 11/30/21 01:50 Discharge Date/Time: 11/30/21 01:51 Print Language: [place]
[2021-11-29 22:33] VITALS: BP 135/76; PULSE 78; RESP 16; TEMP 36.6; O2SAT 100
== END 2021-11-30 01:51 | disposition home or self-care (01) ==
PROVIDERS: Emergency Provider Student in an Organized Health Care Education/Training Program; PCP Internal Medicine
DX: R30.0 Dysuria (principal); R40.0 Somnolence; E66.09 Other obesity due to excess calories
CPT/HCPCS: 36415; 51798; 80048; 80053; 81001; 84443; 85025; 85027; 87086; 99283; 99284

== ENCOUNTER → 2022-01-03 10:05 | Outpatient (BNVA) | payer MEDICARE, MEDICAID, SELFPAY | PROVIDERS: PCP Internal Medicine | DX: R32 Unspecified urinary incontinence (principal); N32.81 Overactive bladder; E66.01 Morbid (severe) obesity due to excess calories; Z68.30 Body mass index [BMI] 30.0-30.9, adult; Z88.0 Allergy status to penicillin; Z88.8 Allergy status to other drugs, medicaments and biological substances; Z91.041 Radiographic dye allergy status | CPT/HCPCS: 51798; 99212 ==

== ENCOUNTER 2022-01-30 10:43 | Inpatient (IN) | payer MEDICARE, MEDICAID, SELFPAY ==
[2022-01-30] VITALS (9 sets, daily range): BP systolic 124–140; BP diastolic 65–84; PULSE 68–80; RESP 10–18; TEMP 36.3–36.5; O2SAT 99–100; BMI 32.6
--- NOTE | ~2022-01-30 | CT_ITS ---
EXAMINATION: CT HEAD WITHOUT CONTRAST CT CERVICAL SPINE WITHOUT CONTRAST CLINICAL INFORMATION: Reason for Exam fall COMPARISON: CT of the head and cervical spine done on 07/30/2021. TECHNIQUE: Imaging was performed from the skull base to vertex without intravenous administration of contrast. In addition, helical noncontrast CT imaging was acquired through the cervical spine and source images were reviewed along with axial reconstructions and sagittal and coronal MPRs. This CT examination was performed using dose optimization techniques as appropriate, variously including the following: *Automated exposure control. *Adjustment of mA and/or kV according to patient size (this includes techniques or standardized protocols for targeted exams where dose is matched to indication/reason for exam; i.e. extremities or head). *Use of iterative reconstruction technique. Total exam dose-length product 1500 mGy-cm FINDINGS: HEAD: Stable postsurgical changes of craniotomy defects are noted at left occipitoparietal region and underlying stable encephalomalacia. No intracranial mass, hemorrhage, or midline shift is visualized. The ventricles and sulci are unremarkable. No extra-axial collections are identified. The paranasal sinuses and mastoid air cells are well aerated, except for subcentimeter mucous retention cyst and/or polyp within the posterolateral aspect of the visualized left maxillary sinus.. CERVICAL SPINE: There is no evidence of acute cervical spine fracture. Multilevel degenerative disc disease related changes are noted at mid to lower cervical spine. Vertebral bodies remain normal in height, and alignment is anatomic. No prevertebral or paravertebral soft tissue abnormality is identified. Limited assessment of the lung apices is unremarkable. CT/CT cervical spine wo con IMPRESSION: 1. No acute intracranial pathology. 2. No CT evidence of acute cervical spine fracture or traumatic subluxation. 3. Postsurgical changes of craniotomy defects are noted at the left occipitoparietal region with underlying stable encephalomalacia. 4. Interval development of subcentimeter mucous retention cyst and/or polyp within the left maxillary sinus. 5. Multilevel degenerative disc disease at mid to lower cervical spine.
--- NOTE | ~2022-01-30 | XR_ITS ---
EXAMINATION: XR CHEST CLINICAL INFORMATION: Patient unable to follow directions. Fall. COMPARISON: 07/30/2021 TECHNIQUE: Frontal view of the chest was obtained. FINDINGS: Lung volumes are decreased from the prior study. There is mild interstitial prominence. No focal consolidation. Normal heart size. No pleural effusion or pneumothorax. Chronic healed right proximal humeral deformity. No acute osseous abnormality. XR/XR chest 1V IMPRESSION: Low lung volumes with mild interstitial prominence which may reflect bronchovascular crowding although mild interstitial pulmonary edema or interstitial pneumonitis cannot be excluded.
--- NOTE | 2022-01-30 11:21 | ECG_ITS ---
Test Reason : post ictal Blood Pressure : / mmHG Vent. Rate : 073 BPM Atrial Rate : 073 BPM P-R Int : 174 ms QRS Dur : 084 ms QT Int : 388 ms P-R-T Axes : -02 012 017 degrees QTc Int : 427 ms Normal sinus rhythm Normal ECG When compared with ECG of 30-JUL-2021 09:37, No significant change was found Referred By: Jessica Quiles Electronically Signed By:HUGO RODRIGUEZ MD
--- NOTE | 2022-01-30 11:29 | ED.AMS ---
HPI - Altered Mental Status General Chief Complaint: Seizure Stated Complaint: UNWIT SZ,FOUND ON FLOOR,POST ICTAL,?R FACE DROOP Time Seen by Provider: 01/30/22 11:12 Source: patient, family and old records reviewed Mode of arrival: EMS Limitations: altered mental status History of Present Illness HPI narrative: fell x 2 this AM hit back of head after taking her AM medications, has been so groggy she was taken off of her gabapentin and neurontin but still falls all the time and is sedated for most of the day MD complaint: decreased responsiveness (very groggy due to medications) Onset (ago): month(s) (2+) Timing confirmed by: family member and caregiver Severity: moderate Consistency of symptoms: waxing and waning Context: change in medication Associated symptoms: malaise, difficulty walking and other (laceration to back of head) Related Data Home Medications Medication Instructions Recorded Confirmed phenobarbital 64.8 mg tablet 2 tab PO BEDTIME 09/28/20 01/30/22 eslicarbazepine 600 mg tablet 600 mg PO BID tab 11/04/20 01/30/22 (Aptiom) multivitamin (Daily Multi-Vitamin) 1 tab PO DAILY 10/25/21 01/30/22 paliperidone palmitate 234 mg/1.5 234 mg IM QMONTH 11/29/21 12/27/21 mL intramuscular syringe (Invega Sustenna) cenobamate 150 mg tablet (Xcopri) 1 tab PO DAILY 01/30/22 01/30/22 cranberry extract 250 mg tablet 250 mg PO DAILY 01/30/22 01/30/22 risperidone 0.5 mg tablet 0.5 mg PO BID 01/30/22 01/30/22 Previous Rx's Medication Instructions Recorded diaper,brief,adult,disposable #10 ea 11/24/20 walker #1 ea 04/23/21 magnesium oxide 400 mg (241.3 mg 400 mg PO DAILY 90 Days #90 tab 08/24/21 magnesium) tablet dicyclomine 10 mg capsule 20 mg PO QID 30 Days #240 cap 08/30/21 pantoprazole 40 mg tablet,delayed 40 mg PO DAILY 30 Days #30 tab 08/30/21 release sucralfate 1 gram tablet 2 g PO DAILY 90 Days #180 tab 08/30/21 Allergies Allergy/AdvReac Type Severity Reaction Status Date / Time Iodinated Contrast Media Allergy Intermediate RED ALL Verified 01/03/22 10:38 [IV Dye, Iodine Containing] OVER NAUSEA AND LOST RESPIRATIONS Penicillins [PENICILLINS] Allergy Intermediate Unknown Verified 01/03/22 10:38 phenytoin [From Dilantin] Allergy Intermediate gum Verified 01/03/22 10:38 swelling lamotrigine [From Lamictal] Allergy Unknown unknown Verified 01/03/22 10:38 Review of Systems Review of Systems: ROS unable to be obtained due to altered mental status [facility] Past Medical History Source: old records reviewed and obtained from family Medical History Class 1 obesity due to excess calories with body mass index (BMI) of 30.0 to 30.9 in adult Depression Encephalomalacia Epilepsy Expressive aphasia Gait instability GERD (gastroesophageal reflux disease) Hyponatremia Hypotension Mild recurrent major depression Overactive bladder Polyarthralgia Pre-op evaluation Pre-op examination Screening for cervical cancer Seizures Unsteady gait Urge urinary incontinence Urinary incontinence Surgical History H/O prior ablation treatment History of section History of skin graft History of tubal ligation History of tumor Surgical history unknown Family History Family History Father Heart problem Mother Diabetes Low blood pressure Family/Other Substance use disorder Mental health disorder Social History Social History Household Members: Unknown / Unable to assess Housing: Apartment Alcohol intake: never Patient Tobacco Use Status: Never used Tobacco e-Cigarette/Vaping Use: Never Used Second Hand Smoke Exposure: No Advance Directives: No Advance Directives Information Provided: No Advance Directives Date on File: 04/19/21 service: No Current occupational status: disabled Current occupation: rt handed Cognitive needs: Yes (walker) Hearing needs: No Vision needs: Yes (glasses) Physical Exam ED Vital Signs: Vital Signs - 24 hr 01/30/22 11:07 01/30/22 13:54 01/30/22 14:37 Temperature 97.5 F Pulse Rate 74 74 72 Respiratory Rate 10 L 17 18 Blood Pressure 128/78 124/76 Pulse Oximetry 100 100 99 05/09/22 16:10 01/30/22 16:14 Temperature Pulse Rate 68 71 Respiratory Rate 14 14 Blood Pressure 128/73 Pulse Oximetry 99 99 BMI result Body Mass Index 32.6 Appearance: Somnolent but follows commands, mumbling. Mild acute distress. Eyes: Pupils equal, round and reactive to light. ENT: Pharynx normal. No abrasions or lacerations to tongue. 2 cm superficial linear laceration to posterior scalp R parietal area Neck: Normal inspection. Neck supple. CVS: Normal heart rate and rhythm. Pulses normal. Respiratory: No respiratory distress. Breath sounds normal. Abdomen: Soft and non-tender. Skin: Skin warm and dry. pale skin color. Normal skin turgor. Extremities: No lower extremity edema. Neuro: Oriented X 1 to self. No motor deficit. No sensory deficit. Course Course Course Narrative: at this time infection suspected + UA antibiotics ordered 229pm did notify Neurology of admission MDM - Altered Mental Status MDM Narrative Medical decision making narrative: 56 yo female with hx of very difficult to control seizures, GERD, frequent falls here with excessive grogginess and multiple falls a week - family concerned about medications at this time will need CT head/neck for falls, labs, EKG, UA/CXR for infection. Patient is not at baseline at this time. Will likely admit for observation and possible neurology consult for medication review given frequent falls. Lab Data Result diagrams: 01/30/22 11:56 01/30/22 11:56 Labs: Lab Results 01/30/22 01/30/22 01/30/22 Range/Units 11:56 11:56 11:56 WBC 4.2 L (4.8-10.8) X10*3/uL RBC 3.56 L (4.20-5.50) X10*6/uL Hgb 11.0 L (12.0-16.0) g/dl Hct 33.6 L (37.0-47.0) % MCV 94.4 (80.0-98.0) fL MCH 30.9 (27.0-33.0) pg MCHC 32.7 (31.0-35.0) g/dl RDW 13.5 (11.0-16.0) % Plt Count 277 D (160-400) X10*3/uL MPV 9.1 L (9.4-12.3) fL Immature Gran % (Auto) 0.2 (0.0-0.4) % Neut % (Auto) 58.0 (45-73) % Lymph % (Auto) 26.2 (20-40) % [place] % (Auto) 12.7 H (2-11) % Eos % (Auto) 1.7 (0-4) % Baso % (Auto) 1.2 (0-2) % Lymph # (Auto) 1.1 L (1.2-4.9) X10*3/uL [place] # (Auto) 0.5 (0.1-1.2) X10*3/uL Eos # (Auto) 0.1 (0.0-0.4) X10*3/uL Baso # (Auto) 0.1 (0.0-0.2) X10*3/uL Abs Immat Gran (auto) 0.01 (0.00-0.03) X10*3/uL Absolute Neuts (auto) 2.4 (2.0-8.3) x10*3/uL Absolute Nucleated RBC 0.000 (0.0-0.012) X10*3/uL Nucleated RBC % (auto) 0.0 (0.0-0.2) /100WBC PT 12.5 (9.9-13.0) SEC INR 1.1 (0.9-1.1) Sodium 135 (135-145) mmol/L Potassium 4.5 (3.3-5.1) mmol/L Chloride 98 (96-108) mmol/L Carbon Dioxide 27 (22-29) mmol/L Anion Gap 15 (12-20) BUN 15 (9-16) mg/dL Creatinine 0.58 (0.5-1.4) mg/dL Estim Creat Clear Calc 126.5 Estimated GFR > 60 Random Glucose 101 (60-115) mg/dL Lactic Acid (0.5-2.0) mmol/L Calcium 9.4 D (8.4-10.2) mg/dL Magnesium 1.7 (1.6-2.6) mg/dL Total Bilirubin < 0.2 (0.0-1.0) mg/dL Direct Bilirubin < 0.2 (0.0-0.5) mg/dL AST 19 (5-31) U/L ALT 24 (0-31) U/L Alkaline Phosphatase 97 D (39-117) U/L Ammonia (13-55) umol/L Total Creatine Kinase 51 (26-140) U/L Troponin I High Sens (<3.5-17.0) ng/L C-Reactive Protein 1.48 H (< or = 0.50) mg/dL Total Protein 7.5 (6.5-8.0) g/dL Albumin 3.8 (3.5-5.0) g/dL Lipase 47 (8-78) U/L TSH 1.30 (0.32-4.0) uIU/mL Urine Color Urine Appearance Urine pH (5.0-8.0) Ur Specific [place] (1.005-1.025) Urine Protein (NEG-TRACE) MG/DL Urine Glucose (UA) (NEG) MG/DL Urine Ketones (NEG) MG/DL Urine Blood (NEG) Urine Nitrite (NEG) Ur Leukocyte Esterase (NEG) Urine RBC (0) /HPF Urine WBC (0-4) /HPF Ur Squamous Epith Cells /LPF Amorphous Sediment /LPF Urine Bacteria /LPF COVID-19 (MICHELLE) (Negative) COVID-19 Clin Com 01/30/22 01/30/22 01/30/22 Range/Units 11:56 11:56 11:56 WBC (4.8-10.8) X10*3/uL RBC (4.20-5.50) X10*6/uL Hgb (12.0-16.0) g/dl Hct (37.0-47.0) % MCV (80.0-98.0) fL MCH (27.0-33.0) pg MCHC (31.0-35.0) g/dl RDW (11.0-16.0) % Plt Count (160-400) X10*3/uL MPV (9.4-12.3) fL Immature Gran % (Auto) (0.0-0.4) % Neut % (Auto) (45-73) % Lymph % (Auto) (20-40) % [place] % (Auto) (2-11) % Eos % (Auto) (0-4) % Baso % (Auto) (0-2) % Lymph # (Auto) (1.2-4.9) X10*3/uL [place] # (Auto) (0.1-1.2) X10*3/uL Eos # (Auto) (0.0-0.4) X10*3/uL Baso # (Auto) (0.0-0.2) X10*3/uL Abs Immat Gran (auto) (0.00-0.03) X10*3/uL Absolute Neuts (auto) (2.0-8.3) x10*3/uL Absolute Nucleated RBC (0.0-0.012) X10*3/uL Nucleated RBC % (auto) (0.0-0.2) /100WBC PT (9.9-13.0) SEC INR (0.9-1.1) Sodium (135-145) mmol/L Potassium (3.3-5.1) mmol/L Chloride (96-108) mmol/L Carbon Dioxide (22-29) mmol/L Anion Gap (12-20) BUN (9-16) mg/dL Creatinine (0.5-1.4) mg/dL Estim Creat Clear Calc Estimated GFR Random Glucose (60-115) mg/dL Lactic Acid 1.0 (0.5-2.0) mmol/L Calcium (8.4-10.2) mg/dL Magnesium (1.6-2.6) mg/dL Total Bilirubin (0.0-1.0) mg/dL Direct Bilirubin (0.0-0.5) mg/dL AST (5-31) U/L ALT (0-31) U/L Alkaline Phosphatase (39-117) U/L Ammonia 31 (13-55) umol/L Total Creatine Kinase (26-140) U/L Troponin I High Sens < 3.5 (<3.5-17.0) ng/L C-Reactive Protein (< or = 0.50) mg/dL Total Protein (6.5-8.0) g/dL Albumin (3.5-5.0) g/dL Lipase (8-78) U/L TSH (0.32-4.0) uIU/mL Urine Color Urine Appearance Urine pH (5.0-8.0) Ur Specific [place] (1.005-1.025) Urine Protein (NEG-TRACE) MG/DL Urine Glucose (UA) (NEG) MG/DL Urine Ketones (NEG) MG/DL Urine Blood (NEG) Urine Nitrite (NEG) Ur Leukocyte Esterase (NEG) Urine RBC (0) /HPF Urine WBC (0-4) /HPF Ur Squamous Epith Cells /LPF Amorphous Sediment /LPF Urine Bacteria /LPF COVID-19 (MICHELLE) (Negative) COVID-19 Clin Com 01/30/22 01/30/22 Range/Units 11:57 13:57 WBC (4.8-10.8) X10*3/uL RBC (4.20-5.50) X10*6/uL Hgb (12.0-16.0) g/dl Hct (37.0-47.0) % MCV (80.0-98.0) fL MCH (27.0-33.0) pg MCHC (31.0-35.0) g/dl RDW (11.0-16.0) % Plt Count (160-400) X10*3/uL MPV (9.4-12.3) fL Immature Gran % (Auto) (0.0-0.4) % Neut % (Auto) (45-73) % Lymph % (Auto) (20-40) % [place] % (Auto) (2-11) % Eos % (Auto) (0-4) % Baso % (Auto) (0-2) % Lymph # (Auto) (1.2-4.9) X10*3/uL [place] # (Auto) (0.1-1.2) X10*3/uL Eos # (Auto) (0.0-0.4) X10*3/uL Baso # (Auto) (0.0-0.2) X10*3/uL Abs Immat Gran (auto) (0.00-0.03) X10*3/uL Absolute Neuts (auto) (2.0-8.3) x10*3/uL Absolute Nucleated RBC (0.0-0.012) X10*3/uL Nucleated RBC % (auto) (0.0-0.2) /100WBC PT (9.9-13.0) SEC INR (0.9-1.1) Sodium (135-145) mmol/L Potassium (3.3-5.1) mmol/L Chloride (96-108) mmol/L Carbon Dioxide (22-29) mmol/L Anion Gap (12-20) BUN (9-16) mg/dL Creatinine (0.5-1.4) mg/dL Estim Creat Clear Calc Estimated GFR Random Glucose (60-115) mg/dL Lactic Acid (0.5-2.0) mmol/L Calcium (8.4-10.2) mg/dL Magnesium (1.6-2.6) mg/dL Total Bilirubin (0.0-1.0) mg/dL Direct Bilirubin (0.0-0.5) mg/dL AST (5-31) U/L ALT (0-31) U/L Alkaline Phosphatase (39-117) U/L Ammonia (13-55) umol/L Total Creatine Kinase (26-140) U/L Troponin I High Sens (<3.5-17.0) ng/L C-Reactive Protein (< or = 0.50) mg/dL Total Protein (6.5-8.0) g/dL Albumin (3.5-5.0) g/dL Lipase (8-78) U/L TSH (0.32-4.0) uIU/mL Urine Color YELLOW Urine Appearance CLOUDY Urine pH 8.0 (5.0-8.0) Ur Specific [place] 1.015 (1.005-1.025) Urine Protein NEG (NEG-TRACE) MG/DL Urine Glucose (UA) NEG (NEG) MG/DL Urine Ketones NEG (NEG) MG/DL Urine Blood NEG (NEG) Urine Nitrite POS H (NEG) Ur Leukocyte Esterase NEG (NEG) Urine RBC 0-2 (0) /HPF Urine WBC 10-14 H (0-4) /HPF Ur Squamous Epith Cells NONE /LPF Amorphous Sediment 1+ /LPF Urine Bacteria 3+ /LPF COVID-19 (MICHELLE) Negative (Negative) COVID-19 Clin Com See Note ECG Data ECG #1: Attestation: I personally reviewed and interpreted this ECG as follows: ECG interpretation date: 01/30/22 ECG interpretation time: 11:51 Interpretation: Rate: 73 Rhythm: NSR [place]: normal Normal P waves. Normal CONNIE. Normal QRS complex. ST T wave : normal no VINCE qTC: normal prior studies: no acute ischemia The study has been interpreted contemporaneously by me. . Procedures Laceration Laceration 1: Site: scalp Side (If applicable): right Size (cm): 2 Description: linear Depth: simple, single layer Local Anesthetic: other anesthetic (LMX 4%) Amount of anesthesia used (mL): 3 Pre-repair: wound explored and irrigated extensively Skin layer closed with: other (2 jakub) Discharge Plan Discharge Clinical Impression: Acute alteration in mental status Laceration of scalp Qualifiers: Encounter type: initial encounter Qualified Code(s): S01.01XA - Laceration without foreign body of scalp, initial encounter UTI (urinary tract infection) Qualifiers: Urinary tract infection type: acute cystitis Hematuria presence: without hematuria Qualified Code(s): N30.00 - Acute cystitis without hematuria Patient Disposition: Admitted As Inpatient
[2022-01-30] MEDS: Lidocaine 4 % Cream KIT 1 APPL TOPICAL (12:01)
--- NOTE | 2022-01-30 12:03 | PHA.MEDREC ---
Pharmacy Consult ? Medication Reconciliation Pharmacy has completed the medication reconciliation. Spoke with patient's daughter Hamida. Xcopri recently reduced from 200 mg daily to 150 mg daily. Risperidone recetnly reduced from 1 mg BID to 0.5 mg BID. Daughter confirmed patient recieve December dose of Invega but unsure the day, however she is speaking with the provider to potentially decrease the dose. Tom reported Clobazam 10 mg BID per patient chart. Clobazam was last filled in November for a 5 days supply. To confirm medication, I told the daughter to bring in medication. Daughter is aware is patient is still her tonight Xcopri, Aptiom, and Phenobarbital will need to be brought in as they are not on formulary. Minerva Holland, PharmD
[2022-01-30 12:05] LABS: MANUAL DIFF FLAG NO
[2022-01-30 12:09] LABS: Basophils Absolute Auto 0.1 X10*3/uL (0.0-0.2); Basophils Percent Auto 1.2 % (0-2); Eosinophils Absolute Auto 0.1 X10*3/uL (0.0-0.4); Eosinophils Percent Auto 1.7 % (0-4); Hematocrit 33.6 % (37.0-47.0); Imm Gran Abs Auto 0.01 X10*3/uL (0.00-0.03); Imm Gran Pct Auto 0.2 % (0.0-0.4); Lymphocytes Absolute Auto 1.1 X10*3/uL (1.2-4.9); Lymphocytes Percent Auto 26.2 % (20-40); Mean Corpuscular HGB Conc 32.7 g/dl (31.0-35.0); Mean Corpuscular Hemoglobin 30.9 pg (27.0-33.0); Mean Corpuscular Volume 94.4 fL (80.0-98.0); Mean Platelet Volume 9.1 fL (9.4-12.3); Monocytes Absolute Auto 0.5 X10*3/uL (0.1-1.2); Monocytes Percent Auto 12.7 % (2-11); Neutrophils Absolute Auto 2.4 x10*3/uL (2.0-8.3); Platelet Count 277 X10*3/uL (160-400); Red Blood Count 3.56 X10*6/uL (4.20-5.50); Red Cell Distribution Width 13.5 % (11.0-16.0); White Blood Count 4.2 X10*3/uL (4.8-10.8)
[2022-01-30 12:14] LABS: Ammonia 31 umol/L (13-55)
[2022-01-30 12:16] LABS: INTERNATIONAL NORM RATIO 1.1 (0.9-1.1); Prothrombin Time 12.5 SEC (9.9-13.0)
[2022-01-30 12:18] LABS: COVID-19 Test Negative (Negative)
[2022-01-30 12:27] LABS: Troponin-I High Sensitivity < 3.5 ng/L (<3.5-17.0)
[2022-01-30 12:29] LABS: Alanine Aminotransferase 24 U/L (0-31); Albumin Level 3.8 g/dL (3.5-5.0); Alkaline Phosphatase 97 U/L (39-117); Anion Gap 15 (12-20); Aspartate Amino Transferase 19 U/L (5-31); Bilirubin Direct < 0.2 mg/dL (0.0-0.5); Bilirubin Total < 0.2 mg/dL (0.0-1.0); Blood Urea Nitrogen 15 mg/dL (9-16); C Reactive Protein 1.48 mg/dL (< or = 0.50); Calcium 9.4 mg/dL (8.4-10.2); Carbon Dioxide 27 mmol/L (22-29); Chloride 98 mmol/L (96-108); Creatinine Clr Calc Pharmacy 126.5; Estimated Glomerular Filt Rate > 60; Glucose Random 101 mg/dL (60-115); Lipase 47 U/L (8-78); Magnesium 1.7 mg/dL (1.6-2.6); Potassium 4.5 mmol/L (3.3-5.1); Sodium 135 mmol/L (135-145); Total Protein 7.5 g/dL (6.5-8.0)
[2022-01-30 14:09] LABS: Appearance Urine CLOUDY; Color Urine YELLOW; Glucose Urine UA NEG (NEG); Leukocyte Esterase Urine NEG (NEG); Nitrite Urine POS (NEG); Specific Gravity - Urine 1.015 (1.005-1.025); UACC Culture Trigger YES; Urine Blood NEG (NEG); Urine Ketones NEG (NEG); Urine Protein NEG (NEG-TRACE)
[2022-01-30 14:27] LABS: RBC Urine 0-2 /HPF (0)
[2022-01-30 14:28] LABS: Amorphous Sediment Urine 1+ /LPF; Bacteria Urine 3+ /LPF
[2022-01-30] MEDS: cefTRIAXone sodium 1 GM in 0.9 % Sodium Chloride 50 ML IV (14:47)
--- NOTE | 2022-01-30 16:14 | PC.NURSE ---
pt sleeping, seizure pads in place
--- NOTE | 2022-01-30 16:51 | P.HPHOSP_ITS ---
History of Present Illness Date of Service: 01/30/22 Chief Complaint: Lethargy, falls A 56 years old lady with PMH of refractory seizures, falls, GERD, encephalomalacia, aphasia among others who presents to the hospital with 2 falls this morning and increase falls, weakness and lethargy over the last week or so. The patient was unable to provide any meaningful history and the most date were taken from emergency provider EMS notes as her daughter did not respond to the phone. The patient was brought to the hospital by family for concerns about medications overdose given increased falls and being sedated for most of time. Reported Stopping of gabapentin recently for the same problem but with no effect. The emergency blood work and images did not show any acute findings. Admitted for further evaluation and treatment. Review of Systems Review of Systems: Unable to provide any meaningful history PMFSH Medical History Class 1 obesity due to excess calories with body mass index (BMI) of 30.0 to 30.9 in adult Depression Encephalomalacia Epilepsy Expressive aphasia Gait instability GERD (gastroesophageal reflux disease) Hyponatremia Hypotension Mild recurrent major depression Overactive bladder Polyarthralgia Pre-op evaluation Pre-op examination Screening for cervical cancer Seizures Unsteady gait Urge urinary incontinence Urinary incontinence Family History Father Heart problem Mother Diabetes Low blood pressure Family/Other Substance use disorder Mental health disorder Surgical History H/O prior ablation treatment History of section History of skin graft History of tubal ligation History of tumor Surgical history unknown Social History Household Members: Unknown / Unable to assess Housing: Apartment Alcohol intake: never Patient Tobacco Use Status: Never used Tobacco e-Cigarette/Vaping Use: Never Used Second Hand Smoke Exposure: No Advance Directives: No Advance Directives Information Provided: No Advance Directives Date on File: 04/19/21 service: No Current occupational status: disabled Current occupation: rt handed Cognitive needs: Yes (walker) Hearing needs: No Vision needs: Yes (glasses) Meds Allergies Allergy/AdvReac Type Severity Reaction Status Date / Time Iodinated Contrast Media Allergy Intermediate RED ALL Verified 01/03/22 10:38 [IV Dye, Iodine Containing] OVER NAUSEA AND LOST RESPIRATIONS Penicillins [PENICILLINS] Allergy Intermediate Unknown Verified 01/03/22 10:38 phenytoin [From Dilantin] Allergy Intermediate gum Verified 01/03/22 10:38 swelling lamotrigine [From Lamictal] Allergy Unknown unknown Verified 01/03/22 10:38 Active Medications: Current Medications Dicyclomine HCl (Dicyclomine Hcl 10 Mg Capsule) 20 mg PO QID [facility] Magnesium Oxide (Magnesium Oxide 400 Mg Tablet) 400 mg PO DAILY [facility] Multivitamins/Vitamin C (Multivitamin Tablet) 1 tab PO DAILY [facility] Non-Formulary Medication (Eslicarbazepine [Aptiom]) 600 mg PO BID [facility] Omeprazole (Omeprazole 20 Mg Capsule.Dr) 20 mg PO DAILY@0630 [facility] Pharmacy Consult (Consult Rx Perform Med Rec) 1 each MISCELLANE ONCE PRN PRN Reason: Consult order Phenobarbital (Phenobarbital 30 Mg Tablet) 60 mg PO BEDTIME [facility] Risperidone (Risperidone 0.5 Mg Tablet) 0.5 mg PO BID [facility] Sucralfate (Sucralfate 1 Gm Tablet) 2 gm PO DAILY [facility] Home Medications Medication Instructions Recorded Confirmed Last Taken Type phenobarbital 64.8 mg tablet 2 tab PO BEDTIME 09/28/20 01/30/22 01/29/22 History eslicarbazepine 600 mg tablet 600 mg PO BID tab 11/04/20 01/30/22 01/30/22 History (Aptiom) multivitamin (Daily Multi-Vitamin) 1 tab PO DAILY 10/25/21 01/30/22 01/30/22 History paliperidone palmitate 234 mg/1.5 234 mg IM QMONTH 11/29/21 12/27/21 Unknown History mL intramuscular syringe (Invega Sustenna) cenobamate 150 mg tablet (Xcopri) 1 tab PO DAILY 01/30/22 01/30/22 01/30/22 History cranberry extract 250 mg tablet 250 mg PO DAILY 01/30/22 01/30/22 01/30/22 History risperidone 0.5 mg tablet 0.5 mg PO BID 01/30/22 01/30/22 01/30/22 History Physical Exam Vital Signs and Narrative: Vital Signs: Last Vital Signs Temp 97.5 F 01/30/22 11:07 Pulse 71 01/30/22 16:14 Resp 14 01/30/22 16:14 BP 128/73 01/30/22 16:14 Pulse Ox 99 01/30/22 16:14 BMI result Body Mass Index 32.6 Const: Other: Constitutional : Very difficult to awake, and recognizes speech, not in distress is, looks weak and lethargic, opens her eyes with stimulation and follows basic commands but mumbles words in [place]ese. Neck : Normal inspection, Supple Cardiovascular : RRR, no JVP, no lower extremity edema Respiratory : fair bilateral air entry, no crackles, wheezes or rhonchi Gastrointestinal: soft, lax, Normal bowel sounds, Non tender Skin : Warm, Dry Neurological : Very sleepy with stimulation but able to raise both hands and answer some questions with no clear speech and goes back to sleep Results Labs CBC and Chem 7: 01/30/22 11:56 01/30/22 11:56 Labs: Laboratory Results - last 24 hr 01/30/22 01/30/22 01/30/22 11:56 11:56 11:56 MCV 94.4 MCH 30.9 MCHC 32.7 RDW 13.5 Plt Count 277 D MPV 9.1 L Immature Gran % (Auto) 0.2 Neut % (Auto) 58.0 Lymph % (Auto) 26.2 Ector % (Auto) 12.7 H Eos % (Auto) 1.7 Baso % (Auto) 1.2 Lymph # (Auto) 1.1 L Ector # (Auto) 0.5 Eos # (Auto) 0.1 Baso # (Auto) 0.1 Abs Immat Gran (auto) 0.01 Absolute Neuts (auto) 2.4 Absolute Nucleated RBC 0.000 Nucleated RBC % (auto) 0.0 PT 12.5 INR 1.1 Anion Gap 15 Estim Creat Clear Calc 126.5 Estimated GFR > 60 Random Glucose 101 Lactic Acid Calcium 9.4 D Magnesium 1.7 Total Bilirubin < 0.2 Direct Bilirubin < 0.2 AST 19 ALT 24 Alkaline Phosphatase 97 D Ammonia Total Creatine Kinase 51 Troponin I High Sens C-Reactive Protein 1.48 H Total Protein 7.5 Albumin 3.8 Lipase 47 TSH 1.30 Urine Color Urine Appearance Urine pH Ur Specific [place] Urine Protein Urine Glucose (UA) Urine Ketones Urine Blood Urine Nitrite Ur Leukocyte Esterase Urine RBC Urine WBC Ur Squamous Epith Cells Amorphous Sediment Urine Bacteria COVID-19 (MICHELLE) COVID-19 [employer] 01/30/22 01/30/22 01/30/22 11:56 11:56 11:56 MCV MCH MCHC RDW Plt Count MPV Immature Gran % (Auto) Neut % (Auto) Lymph % (Auto) Ector % (Auto) Eos % (Auto) Baso % (Auto) Lymph # (Auto) Ector # (Auto) Eos # (Auto) Baso # (Auto) Abs Immat Gran (auto) Absolute Neuts (auto) Absolute Nucleated RBC Nucleated RBC % (auto) PT INR Anion Gap Estim Creat Clear Calc Estimated GFR Random Glucose Lactic Acid 1.0 Calcium Magnesium Total Bilirubin Direct Bilirubin AST ALT Alkaline Phosphatase Ammonia 31 Total Creatine Kinase Troponin I High Sens < 3.5 C-Reactive Protein Total Protein Albumin Lipase TSH Urine Color Urine Appearance Urine pH Ur Specific [place] Urine Protein Urine Glucose (UA) Urine Ketones Urine Blood Urine Nitrite Ur Leukocyte Esterase Urine RBC Urine WBC Ur Squamous Epith Cells Amorphous Sediment Urine Bacteria COVID-19 (MICHELLE) COVID-19 [employer] 01/30/22 01/30/22 11:57 13:57 MCV MCH MCHC RDW Plt Count MPV Immature Gran % (Auto) Neut % (Auto) Lymph % (Auto) Ector % (Auto) Eos % (Auto) Baso % (Auto) Lymph # (Auto) Ector # (Auto) Eos # (Auto) Baso # (Auto) Abs Immat Gran (auto) Absolute Neuts (auto) Absolute Nucleated RBC Nucleated RBC % (auto) PT INR Anion Gap Estim Creat Clear Calc Estimated GFR Random Glucose Lactic Acid Calcium Magnesium Total Bilirubin Direct Bilirubin AST ALT Alkaline Phosphatase Ammonia Total Creatine Kinase Troponin I High Sens C-Reactive Protein Total Protein Albumin Lipase TSH Urine Color YELLOW Urine Appearance CLOUDY Urine pH 8.0 Ur Specific [place] 1.015 Urine Protein NEG Urine Glucose (UA) NEG Urine Ketones NEG Urine Blood NEG Urine Nitrite POS H Ur Leukocyte Esterase NEG Urine RBC 0-2 Urine WBC 10-14 H Ur Squamous Epith Cells NONE Amorphous Sediment 1+ Urine Bacteria 3+ COVID-19 (MICHELLE) Negative COVID-19 Clin Com See Note Imaging Radiologist's Impressions: Impressions Chest X-Ray 01/30/22 12:18 IMPRESSION: Low lung volumes with mild interstitial prominence which may reflect bronchovascular crowding although mild interstitial pulmonary edema or interstitial pneumonitis cannot be excluded. Cervical Spine CT 01/30/22 12:38 IMPRESSION: 1. No acute intracranial pathology. 2. No CT evidence of acute cervical spine fracture or traumatic subluxation. 3. Postsurgical changes of craniotomy defects are noted at the left occipitoparietal region with underlying stable encephalomalacia. 4. Interval development of subcentimeter mucous retention cyst and/or polyp within the left maxillary sinus. 5. Multilevel degenerative disc disease at mid to lower cervical spine. Head CT 01/30/22 12:38 IMPRESSION: 1. No acute intracranial pathology. 2. No CT evidence of acute cervical spine fracture or traumatic subluxation. 3. Postsurgical changes of craniotomy defects are noted at the left occipitoparietal region with underlying stable encephalomalacia. 4. Interval development of subcentimeter mucous retention cyst and/or polyp within the left maxillary sinus. 5. Multilevel degenerative disc disease at mid to lower cervical spine. Assessment and Plan (1) Acute alteration in mental status: Status: Acute (2) UTI (urinary tract infection): Qualifiers: Hematuria presence: without hematuria Urinary tract infection type: acute cystitis Qualified Code(s): N30.00 - Acute cystitis without hematuria Status: Acute (3) Seizures: Status: Acute (4) Toxic metabolic encephalopathy: Status: Acute Plan A 56 years old lady with PMH of refractory seizures, falls, GERD, encephalomalacia, aphasia among others who presents to the hospital with 2 falls this morning and increase falls, weakness and lethargy over the last week or so. Toxic metabolic encephalopathy seems to be secondary to [facility], Get psychiatry and neurology consult To decrease the dose of risperidone Consider lowering Paliperidone as well Q 2 weeks Recurrent reorientation Keep NPO, get speech therapy Aspiration precautions Fall secondary to Physical deconditioning Do physical therapy once more alert and interactive UTI Urine analysis showing bacteria, WBCs and nitrite Pending urine culture Continue ceftriaxone Refractory Seizure disorder Continue Xcopril, Eslicarbazepine and Phenobarbital neuro eval seizure precautions Schizophrenia Decrease risperidone Psych eval DVT PPX Lovenox Quality Stroke Does the patient have a stroke diagnosis?: No VTE Prior VTE?: No VTE Risk Level:: Medical - moderate - high VTE Device Contraindication: Treatment Not Indicated VTE Drug Contraindication: N/A - Med Ordered
--- NOTE | 2022-01-30 18:01 | PC.NURSE ---
pt scheduled for PO medication, pt somnolent, semi arousable with physical touch, groggy. MD contacted to notify of pt condition, and that speech therapy has not been in to evaluate patient. MD states that he understands pt is intermittently somnolent, and to try to give PO medication.
--- NOTE | 2022-01-30 18:09 | PC.NURSE ---
daughter came to visit/bring medication from home as pt was being transferred to overflow unit. dtr states that pt has not wanted to take her medication recently, but does typically swallow her pills whole with water.
--- NOTE | 2022-01-30 20:57 | PC.NURSE ---
pt oob walking with steady gait and now eating her diner.
[2022-01-30] MEDS: PHENobarbitaL 30 MG TABLET 60 MG PO (22:38)
[2022-01-30] MEDS: Dicyclomine HCl 10 MG CAPSULE 20 MG PO (22:38)
[2022-01-30] MEDS: Enoxaparin Sodium 40 MG/0.4 ML SYRINGE SUBCUT (22:39)
[2022-01-30] MEDS: 0.9 % Sodium Chloride Flush 3 ML SYRINGE IVFLUSH (22:48)
[2022-01-31 03:33] VITALS: BP 119/69; PULSE 79; RESP 18; TEMP 36.6; O2SAT 98
[2022-01-31 06:38] LABS: Hematocrit 35.1 % (37.0-47.0); Hemoglobin 11.5 g/dl (12.0-16.0); Mean Corpuscular HGB Conc 32.8 g/dl (31.0-35.0); Mean Corpuscular Hemoglobin 30.6 pg (27.0-33.0); Mean Corpuscular Volume 93.4 fL (80.0-98.0); Mean Platelet Volume 9.3 fL (9.4-12.3); Platelet Count 265 X10*3/uL (160-400); Red Blood Count 3.76 X10*6/uL (4.20-5.50); Red Cell Distribution Width 13.3 % (11.0-16.0); White Blood Count 3.8 X10*3/uL (4.8-10.8)
[2022-01-31 06:55] LABS: Anion Gap 13 (12-20); Blood Urea Nitrogen 11 mg/dL (9-16); Calcium 9.1 mg/dL (8.4-10.2); Carbon Dioxide 26 mmol/L (22-29); Chloride 99 mmol/L (96-108); Creatinine Clr Calc Pharmacy 131.1; Estimated Glomerular Filt Rate > 60; Glucose Random 87 mg/dL (60-115); Potassium 4.5 mmol/L (3.3-5.1); Sodium 133 mmol/L (135-145)
[2022-01-31 07:54] VITALS: BP 117/71; PULSE 80; RESP 18; TEMP 37; O2SAT 97
[2022-01-31] MEDS: Multivitamin TABLET 1 TAB PO (08:53)
[2022-01-31] MEDS: Magnesium Oxide 400 MG TABLET PO (08:53)
[2022-01-31] MEDS: Dicyclomine HCl 10 MG CAPSULE 20 MG PO ×4 (08:54→21:41)
[2022-01-31] MEDS: Sucralfate 1 GM TABLET 2 GM PO (08:54)
[2022-01-31] MEDS: 0.9 % Sodium Chloride Flush 3 ML SYRINGE IVFLUSH ×2 (08:54→14:37)
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
[2022-01-31 09:53] VITALS: BP 117/71; PULSE 80; O2SAT 97
--- NOTE | 2022-01-31 11:08 | HO.PM.IMPN ---
Subjective Subjective Date of Service: 01/31/22 Interval History: More alert and interactive this morning Disoriented as reported in baseline Able to rate diet No reported overnight events Review of Systems Unable to provide any meaningful history but denies any pain, shortness of breath Review of Systems: Yes all other systems are reviewed and are negative Physical Exam Vital Signs: Vital Signs: Last Vital Signs Temp 98.6 F 01/31/22 07:54 Pulse 80 01/31/22 09:53 Resp 18 01/31/22 07:54 BP 117/71 01/31/22 09:53 Pulse Ox 97 01/31/22 09:53 BMI result Body Mass Index 32.6 Const: Other: Constitutional : Alert, not in distress , looks weak and deconditioned, follows basic commands , speech is clearer today Neck : Normal inspection, Supple Cardiovascular : RRR, no JVP, no lower extremity edema Respiratory : fair bilateral air entry, no crackles, wheezes or rhonchi Gastrointestinal: soft, lax, Normal bowel sounds, Non tender Skin : Warm, Dry Neurological : Alert, disoriented, able to raise both hands and answer some questions , more fluent speech in [place] Objective Data Active Medications Acetaminophen (Acetaminophen 325 Mg Tablet) 650 mg PO Q6H PRN PRN Reason: Pain, Mild (Pain Scale 1-3) Dicyclomine HCl (Dicyclomine Hcl 10 Mg Capsule) 20 mg PO QID [facility] Last Admin: 01/31/22 08:54 Dose: 20 mg Documented by: JOSE Enoxaparin Sodium (Enoxaparin Sodium 40 Mg/0.4 Ml Syringe) 40 mg SUBCUT Q24H [facility] Last Admin: 01/30/22 22:39 Dose: 40 mg Documented by: OLIVIA Ceftriaxone Sodium 1 gm/ (Sodium Chloride) 50 mls @ 100 mls/hr IV Q24H [facility] Magnesium Oxide (Magnesium Oxide 400 Mg Tablet) 400 mg PO DAILY [facility] Last Admin: 01/31/22 08:53 Dose: 400 mg Documented by: JOSE Multivitamins/Vitamin C (Multivitamin Tablet) 1 tab PO DAILY [facility] Last Admin: 01/31/22 08:53 Dose: 1 tab Documented by: JOSE Patient Own Medication (Aptiom 600mg) 600 each PO BID [facility] Last Admin: 01/31/22 08:54 Dose: 600 each Documented by: JOSE Patient Own Medication (Xcopri 150mg) 1 each PO DAILY [facility] Last Admin: 01/31/22 08:55 Dose: 1 each Documented by: JOSE Omeprazole (Omeprazole 20 Mg Capsule.Dr) 20 mg PO DAILY@0630 [facility] Last Admin: 01/31/22 05:31 Dose: Not Given Documented by: OLIVIA Non-Admin Reason: Patient Refused Ondansetron HCl (Ondansetron Hcl 4 Mg/2 Ml Vial) 4 mg IVPUSH Q8H PRN PRN Reason: Nausea and Vomiting Pharmacy Consult (Consult Rx Perform Med Rec) 1 each MISCELLANE ONCE PRN PRN Reason: Consult order Phenobarbital (Phenobarbital 30 Mg Tablet) 60 mg PO BEDTIME [facility] Last Admin: 01/30/22 22:38 Dose: 60 mg Documented by: OLIVIA Sodium Chloride (0.9 % Sodium Chloride Flush 3 Ml Syringe) 3 ml IVFLUSH QSHIFT [facility] Last Admin: 01/31/22 08:54 Dose: 3 ml Documented by: JOSE Sucralfate (Sucralfate 1 Gm Tablet) 2 gm PO DAILY [facility] Last Admin: 01/31/22 08:54 Dose: 2 gm Documented by: JOSE Labs CBC & Chem 7: 01/31/22 06:25 01/31/22 06:25 Labs: Laboratory Results - last 24 hr 01/30/22 01/30/22 01/30/22 11:56 11:56 11:56 MCV 94.4 MCH 30.9 MCHC 32.7 RDW 13.5 Plt Count 277 D MPV 9.1 L Immature Gran % (Auto) 0.2 Neut % (Auto) 58.0 Lymph % (Auto) 26.2 [place] % (Auto) 12.7 H Eos % (Auto) 1.7 Baso % (Auto) 1.2 Lymph # (Auto) 1.1 L [place] # (Auto) 0.5 Eos # (Auto) 0.1 Baso # (Auto) 0.1 Abs Immat Gran (auto) 0.01 Absolute Neuts (auto) 2.4 Absolute Nucleated RBC 0.000 Nucleated RBC % (auto) 0.0 PT 12.5 INR 1.1 Anion Gap 15 Estim Creat Clear Calc 126.5 Estimated GFR > 60 Random Glucose 101 Lactic Acid Calcium 9.4 D Magnesium 1.7 Total Bilirubin < 0.2 Direct Bilirubin < 0.2 AST 19 ALT 24 Alkaline Phosphatase 97 D Ammonia Total Creatine Kinase 51 Troponin I High Sens C-Reactive Protein 1.48 H Total Protein 7.5 Albumin 3.8 Lipase 47 TSH 1.30 Urine Color Urine Appearance Urine pH Ur Specific [place] Urine Protein Urine Glucose (UA) Urine Ketones Urine Blood Urine Nitrite Ur Leukocyte Esterase Urine RBC Urine WBC Ur Squamous Epith Cells Amorphous Sediment Urine Bacteria COVID-19 (MICHELLE) COVID-19 Clin Com 01/30/22 01/30/22 01/30/22 11:56 11:56 11:56 MCV MCH MCHC RDW Plt Count MPV Immature Gran % (Auto) Neut % (Auto) Lymph % (Auto) [place] % (Auto) Eos % (Auto) Baso % (Auto) Lymph # (Auto) [place] # (Auto) Eos # (Auto) Baso # (Auto) Abs Immat Gran (auto) Absolute Neuts (auto) Absolute Nucleated RBC Nucleated RBC % (auto) PT INR Anion Gap Estim Creat Clear Calc Estimated GFR Random Glucose Lactic Acid 1.0 Calcium Magnesium Total Bilirubin Direct Bilirubin AST ALT Alkaline Phosphatase Ammonia 31 Total Creatine Kinase Troponin I High Sens < 3.5 C-Reactive Protein Total Protein Albumin Lipase TSH Urine Color Urine Appearance Urine pH Ur Specific [place] Urine Protein Urine Glucose (UA) Urine Ketones Urine Blood Urine Nitrite Ur Leukocyte Esterase Urine RBC Urine WBC Ur Squamous Epith Cells Amorphous Sediment Urine Bacteria COVID-19 (MICHELLE) COVID-19 Clin Com 01/30/22 01/30/22 01/31/22 11:57 13:57 06:25 MCV 93.4 MCH 30.6 MCHC 32.8 RDW 13.3 Plt Count 265 MPV 9.3 L Immature Gran % (Auto) Neut % (Auto) Lymph % (Auto) [place] % (Auto) Eos % (Auto) Baso % (Auto) Lymph # (Auto) [place] # (Auto) Eos # (Auto) Baso # (Auto) Abs Immat Gran (auto) Absolute Neuts (auto) Absolute Nucleated RBC 0.000 Nucleated RBC % (auto) 0.0 PT INR Anion Gap Estim Creat Clear Calc Estimated GFR Random Glucose Lactic Acid Calcium Magnesium Total Bilirubin Direct Bilirubin AST ALT Alkaline Phosphatase Ammonia Total Creatine Kinase Troponin I High Sens C-Reactive Protein Total Protein Albumin Lipase TSH Urine Color YELLOW Urine Appearance CLOUDY Urine pH 8.0 Ur Specific [place] 1.015 Urine Protein NEG Urine Glucose (UA) NEG Urine Ketones NEG Urine Blood NEG Urine Nitrite POS H Ur Leukocyte Esterase NEG Urine RBC 0-2 Urine WBC 10-14 H Ur Squamous Epith Cells NONE Amorphous Sediment 1+ Urine Bacteria 3+ COVID-19 (MICHELLE) Negative COVID-19 Clin Com See Note 01/31/22 06:25 MCV MCH MCHC RDW Plt Count MPV Immature Gran % (Auto) Neut % (Auto) Lymph % (Auto) [place] % (Auto) Eos % (Auto) Baso % (Auto) Lymph # (Auto) [place] # (Auto) Eos # (Auto) Baso # (Auto) Abs Immat Gran (auto) Absolute Neuts (auto) Absolute Nucleated RBC Nucleated RBC % (auto) PT INR Anion Gap 13 Estim Creat Clear Calc 131.1 Estimated GFR > 60 Random Glucose 87 Lactic Acid Calcium 9.1 Magnesium Total Bilirubin Direct Bilirubin AST ALT Alkaline Phosphatase Ammonia Total Creatine Kinase Troponin I High Sens C-Reactive Protein Total Protein Albumin Lipase TSH Urine Color Urine Appearance Urine pH Ur Specific [place] Urine Protein Urine Glucose (UA) Urine Ketones Urine Blood Urine Nitrite Ur Leukocyte Esterase Urine RBC Urine WBC Ur Squamous Epith Cells Amorphous Sediment Urine Bacteria COVID-19 (MICHELLE) COVID-19 Clin Com Assessment and Plan (1) Toxic metabolic encephalopathy: Status: Acute (2) UTI (urinary tract infection): Status: Acute Plan A 56 years old lady with PMH of refractory seizures, falls, GERD, encephalomalacia, aphasia among others who presents to the hospital with 2 falls this morning and increase falls, weakness and lethargy over the last week or so. Toxic metabolic encephalopathy seems to be secondary to multi pharmacy, Pending neurology consult Psych input appreciated, discontinue risperidone Consider lowering Paliperidone as well Q 2 weeks or change in medication Recurrent reorientation [employer] evaluation, start modified diet Aspiration precautions Fall secondary to Physical deconditioning Do physical and occupational therapy UTI Urine analysis showing bacteria, WBCs and nitrite Pending urine culture Continue ceftriaxone Refractory Seizure disorder Continue Xcopril, Eslicarbazepine and Phenobarbital neuro eval seizure precautions Schizophrenia Decrease risperidone Psych eval DVT PPX Lovenox Quality Stroke Does the patient have a stroke diagnosis?: No VTE Prior VTE?: No VTE Risk Level:: Medical - moderate - high VTE Device Contraindication: Treatment Not Indicated VTE Drug Contraindication: N/A - Med Ordered
[2022-01-31 11:16] VITALS: BP 93/53; PULSE 73; RESP 18; TEMP 36; O2SAT 98
--- NOTE | 2022-01-31 13:33 | MHC.SL.SWA ---
Speech Pathologist Impression: Risk of Aspiration Due to: Neurological Condition Reduced Cognition Dysphasia Diet Status: Liquid Consistency and Strategies for Safe Swallow: Liquid Intake Recommendation: Thin Liquid Intake Strategies: Small Sips No Straws Solid Food Consistency: Dietary Recommendations: Chopped/Advanced (NDD3) Additional Modifications to Solid Foods: Pt willl need full assist during meals due to noted impulsivity, difficulty w/coordination to self feed, confusion. Behaviors put patient at risk for aspiration, will need close supervision and monitor during meals. Alternate liquids with solid foods to clear oral cavity before presenting more food. Oral Medication Intake: Crushed with Puree Please contact the pharmacy regarding appropriate crushable or liquid drug formulations that are available whenever modified delivery is recommended. Compensatory Strategies and Precautions to be Taken for Safe Swallow: Sitting Upright (90 deg) No Straw Liquids from Cup Small Bites and Sips Alternate Liquids/Solids Rate of Ingestion Change Oral Check Supervision While Eating and Drinking for Safe Swallow: Total Supervision (1:1) Foods to Avoid: Difficult to chew solids Swallowing Recommended Treatments: Compens. Strategy Educat. Recommendation for Speech: Inpatient Speech Therapy Comment: Pt presents with mild oral phase dysphagia and risk of aspiration due to impulsivity/confusion. Recommend diet consistencies of CHOPPED/ADVANCED (NDD3) with THIN liquids, pills CRUSHED IN PUREE. Pt will need full assist during all meals due to generalized weakness, reduced coordination, confusion, impulsivity. Pt should alternate solids w/ liquids to effectively clear oral cavity before presenting more food. Aspiration precautions apply. MD, Social Media Sr Strategy Manager notified of recommendation by secure text. SURGICAL GARMENT ASSEMBLY SUPERVISOR will follow while inpatient for toleration of recommended diet, re-assessment of swallow, advancement of diet consistencies if warranted. Frequency/Duration: M-F while inpatient Date Range for Service Req: Timeline to reassess: Director Credit Risk Clinican/Clinical Fellow: No Supervisory Statement: I have reviewed and agree with the student/clinical fellow's documentation: N/A Speech Language Pathologist: Chelsy Joshi M.A., CCC-SURGICAL GARMENT ASSEMBLY SUPERVISOR
[2022-01-31] MEDS: cefTRIAXone sodium 1 GM in 0.9 % Sodium Chloride 50 ML IV (14:37)
[2022-01-31 15:27] VITALS: BP 102/56; PULSE 81; RESP 18; TEMP 36.6; O2SAT 98
--- NOTE | 2022-01-31 16:16 | MHC.CM.PN ---
+nurse case manger note electronic medical record reviewed along with case discussed with siddhartha nurse and hospitlsit . patient is not able to participate with this assessment , confused altered mental status . i called to her daughtert /hcp timothy reyna [phone]. information for this assessment was given by timothy , patient lives with dtr , and has compassionate care for nurisng for diagnosis sign symotom mangements , medication madagement , locked mediucation box and vital signs. she has has 23 hours daytime weekly /14 hours nighttime weekly through [employer] for retail director, her daufhter provides transportstion for her to medical appointments . she has a wheelchair at home for transport to medical appointments when needed and she laso has a commode shower chir and walker at home , no other dme equipement she has the retail director for dressing showering and and all adls and housekeeping laundryt cooking , cleaning and providing activities for her . she also is followed by pcp dr sharon elizabeth and neuroplogist dr ziegler, she also has mental health counsleing for anxiety depression and per daughter psychosis , with [facility] counseling psychiatreuist and therapoist , she has hcp naming her daughter but is not sure wher it is ats it was done a [facility] , she also reported that her mother recived the covid vacination pfzi discharge plan resumption of her compasionate care vna for rnusing and medication management locked box. resumtpion of her forensic ballistics expert with [employer] for 23 hours weekly daytime and night time 14 hours weekly they assist her with alls her adls and hopusekeeping , her daughter provides transportation to appointment . mental health counseling with [facility] psychiatry and therapist neurological dr anderson
--- NOTE | 2022-01-31 16:44 | P.CNNE_ITS ---
History of Present Illness Data of Consult Service Date: 01/31/22 Primary Care Provider: Caity Barnes MD [facility] Reason for consult: Lethargy and ataxia. 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 She is brought in because of increasing lethargy and unsteadiness. Shee does have a urinary tract infection. Her seizure medications have not been changed in the last 6 months. She is arousable and follows simple commands but remains very lethargic. It is Review of Systems Review of Systems: Unable to provide any meaningful history but denies any pain, shortness of breath Yes all other systems are reviewed and are negative PMFSH Past Medical History Medical History Class 1 obesity due to excess calories with body mass index (BMI) of 30.0 to 30.9 in adult Depression Encephalomalacia Epilepsy Expressive aphasia Gait instability GERD (gastroesophageal reflux disease) Hyponatremia Hypotension Mild recurrent major depression Overactive bladder Polyarthralgia Pre-op evaluation Pre-op examination Screening for cervical cancer Seizures Unsteady gait Urge urinary incontinence Urinary incontinence Family History Family History Father Heart problem Mother Diabetes Low blood pressure Family/Other Substance use disorder Mental health disorder Surgical History Surgical History H/O prior ablation treatment History of section History of skin graft History of tubal ligation History of tumor Surgical history unknown Social History Social History Household Members: Family Housing: House Do you presently have visiting nurse or other home services: Yes Alcohol intake: never Patient Tobacco Use Status: Never used Tobacco e-Cigarette/Vaping Use: Never Used Second Hand Smoke Exposure: No Use of substances other than those prescribed or required for medical reasons: No Currently Displaying Signs/Symptoms of Drug Intoxication Withdrawal: No Have you been hit, kicked, punched, or otherwise hurt by someone within the past year? If so, by whom?: No Do you feel safe in your current relationship?: No Current Relationship Is there a partner from a previous relationship who is making you feel unsafe now?: No Are you made to feel afraid or neglected: No Advance Directives: No Advance Directives Information Provided: No Advance Directives Date on File: 04/19/21 Do you have thoughts of harming others: None Do you have a plan to hurt others: No Plan Recently lost weight without trying: No Nutrition Risks: On aspiration precautions service: No Current occupational status: disabled Current occupation: rt handed Cognitive needs: Yes (walker) Hearing needs: No Vision needs: Yes (glasses) Meds Allergies Allergy/AdvReac Type Severity Reaction Status Date / Time Iodinated Contrast Media Allergy Intermediate RED ALL Verified 01/03/22 10:38 [IV Dye, Iodine Containing] OVER NAUSEA AND LOST RESPIRATIONS Penicillins [PENICILLINS] Allergy Intermediate Unknown Verified 01/03/22 10:38 phenytoin [From Dilantin] Allergy Intermediate gum Verified 01/03/22 10:38 swelling lamotrigine [From Lamictal] Allergy Unknown unknown Verified 01/03/22 10:38 Active Medications: Current Medications Acetaminophen (Acetaminophen 325 Mg Tablet) 650 mg PO Q6H PRN PRN Reason: Pain, Mild (Pain Scale 1-3) Dicyclomine HCl (Dicyclomine Hcl 10 Mg Capsule) 20 mg PO QID [facility] Last Admin: 01/31/22 12:40 Dose: 20 mg Documented by: Enoxaparin Sodium (Enoxaparin Sodium 40 Mg/0.4 Ml Syringe) 40 mg SUBCUT Q24H [facility] Last Admin: 01/30/22 22:39 Dose: 40 mg Documented by: Ceftriaxone Sodium 1 gm/ (Sodium Chloride) 50 mls @ 100 mls/hr IV Q24H [facility] Last Infusion: 01/31/22 15:26 Dose: Infused Documented by: Magnesium Oxide (Magnesium Oxide 400 Mg Tablet) 400 mg PO DAILY [facility] Last Admin: 01/31/22 08:53 Dose: 400 mg Documented by: Multivitamins/Vitamin C (Multivitamin Tablet) 1 tab PO DAILY [facility] Last Admin: 01/31/22 08:53 Dose: 1 tab Documented by: Patient Own Medication (Aptiom 600mg) 600 each PO BID [facility] Last Admin: 01/31/22 08:54 Dose: 600 each Documented by: Patient Own Medication (Xcopri 150mg) 1 each PO DAILY [facility] Last Admin: 01/31/22 08:55 Dose: 1 each Documented by: Omeprazole (Omeprazole 20 Mg Capsule.Dr) 20 mg PO DAILY@0630 [facility] Last Admin: 01/31/22 05:31 Dose: Not Given Documented by: Ondansetron HCl (Ondansetron Hcl 4 Mg/2 Ml Vial) 4 mg IVPUSH Q8H PRN PRN Reason: Nausea and Vomiting Pharmacy Consult (Consult Rx Perform Med Rec) 1 each MISCELLANE ONCE PRN PRN Reason: Consult order Phenobarbital (Phenobarbital 30 Mg Tablet) 60 mg PO BEDTIME [facility] Last Admin: 01/30/22 22:38 Dose: 60 mg Documented by: Sodium Chloride (0.9 % Sodium Chloride Flush 3 Ml Syringe) 3 ml IVFLUSH QSHIFT [facility] Last Admin: 01/31/22 14:37 Dose: 3 ml Documented by: Sucralfate (Sucralfate 1 Gm Tablet) 2 gm PO DAILY [facility] Last Admin: 01/31/22 08:54 Dose: 2 gm Documented by: Home Medications Medication Instructions Recorded Confirmed Last Taken Type phenobarbital 64.8 mg tablet 2 tab PO BEDTIME 09/28/20 01/30/22 01/29/22 History eslicarbazepine 600 mg tablet 600 mg PO BID tab 11/04/20 01/30/22 01/30/22 History (Aptiom) multivitamin (Daily Multi-Vitamin) 1 tab PO DAILY 10/25/21 01/30/22 01/30/22 History paliperidone palmitate 234 mg/1.5 234 mg IM QMONTH 11/29/21 12/27/21 Unknown His tory mL intramuscular syringe (Invega Sustenna) cenobamate 150 mg tablet (Xcopri) 1 tab PO DAILY 01/30/22 01/30/22 01/30/22 History cranberry extract 250 mg tablet 250 mg PO DAILY 01/30/22 01/30/22 01/30/22 History risperidone 0.5 mg tablet 0.5 mg PO BID 01/30/22 01/30/22 01/30/22 History Physical Exam Vital Signs: Vital Signs: Last Vital Signs Temp 97.9 F 01/31/22 15:27 Pulse 81 01/31/22 15:27 Resp 18 01/31/22 15:27 BP 102/56 L 01/31/22 15:27 Pulse Ox 98 01/31/22 15:27 BMI result Body Mass Index 32.6 Const: Other: Constitutional : Alert, not in distress , looks weak and deconditioned, follows basic commands , speech is clearer today Neck : Normal inspection, Supple Cardiovascular : RRR, no JVP, no lower extremity edema Respiratory : fair bilateral air entry, no crackles, wheezes or rhonchi Gastrointestinal: soft, lax, Normal bowel sounds, Non tender Skin : Warm, Dry Neurological : Alert, disoriented, able to raise both hands and answer some questions , more fluent speech in Romanian Neuro: Other: She is very drowsy but arousable and can be made to stay awake for short periods off time. She follows commandss and has a nonfocal examination. She tracks with her eyes to command is no facial weakness. Tongue is midline with no tongue bite. He moves all 4 extremities against gravity. Neck is supple. Results Labs CBC & Chem 7: 01/31/22 06:25 01/31/22 06:25 Labs: Short CBC 01/31/22 Range/Units 06:25 WBC 3.8 L (4.8-10.8) X10*3/uL Hgb 11.5 L (12.0-16.0) g/dl Hct 35.1 L (37.0-47.0) % Plt Count 265 (160-400) X10*3/uL BMP 01/31/22 06:25 Sodium 133 L Potassium 4.5 Chloride 99 Carbon Dioxide 26 BUN 11 Creatinine 0.56 Calcium 9.1 Microbiology Microbiology Results: Microbiology 01/30/22 12:09 Blood - Venous Blood Culture - Preliminary No growth after 24 hours. 01/30/22 11:56 Blood - Venous Blood Culture - Preliminary No growth after 24 hours. 01/30/22 00:00 Urine Catheterized - Forbes Catheter Urine Culture - Preliminary Gram negative michael Assessment and Plan (1) Toxic metabolic encephalopathy: Status: Acute Possible medication induced encephalopathy versus infectious etiology from her UTI. She has not been on any new seizure medications and the dosages of these medications have been stable from more than 6 months is difficult to assign blamed on the antiepileptic drugs. She is on psychiatric medications which probably need to be held. Treat the UTI and then reassess her mental state. She has had no seizures while she's been in the hospital (2) UTI (urinary tract infection): Qualifiers: Hematuria presence: without hematuria Urinary tract infection type: acute cystitis Qualified Code(s): N30.00 - Acute cystitis without hematuria Status: Acute (3) Epilepsy: Status: Acute Continue current seizure medications at the current dosage. Plan A 56 years old lady with PMH of refractory seizures, falls, GERD, encephal omalacia, aphasia among others who presents to the hospital with 2 falls this morning and increase falls, weakness and lethargy over the last week or so. Toxic metabolic encephalopathy seems to be secondary to [facility], Pending neurology consult Psych input appreciated, discontinue risperidone Consider lowering Paliperidone as well Q 2 weeks or change in medication Recurrent reorientation MANUFACTURERS AGENT evaluation, start modified diet Aspiration precautions Fall secondary to Physical deconditioning Do physical and occupational therapy UTI Urine analysis showing bacteria, WBCs and nitrite Pending urine culture Continue ceftriaxone Refractory Seizure disorder Continue Xcopril, Eslicarbazepine and Phenobarbital neuro eval seizure precautions Schizophrenia Decrease risperidone Psych eval DVT PPX Lovenox Procedures Date of Service Date of Service: 01/31/22
[2022-01-31] MEDS: Enoxaparin Sodium 40 MG/0.4 ML SYRINGE SUBCUT (16:54)
[2022-01-31 19:51] VITALS: BP 97/53; PULSE 85; RESP 18; TEMP 36.3; O2SAT 98
[2022-01-31] MEDS: PHENobarbitaL 30 MG TABLET 60 MG PO (21:41)
[2022-02-01] VITALS (8 sets, daily range): BP systolic 91–114; BP diastolic 53–72; PULSE 69–99; RESP 17–20; TEMP 36.1–37.1; O2SAT 95–100
[2022-02-01] MEDS: 0.9 % Sodium Chloride Flush 3 ML SYRINGE IVFLUSH ×4 (02:11→20:17)
[2022-02-01] MEDS: Omeprazole 20 MG CAPSULE.DR PO (05:57)
[2022-02-01 06:00] LABS: Anion Gap 12 (12-20); Blood Urea Nitrogen 14 mg/dL (9-16); Calcium 9.2 mg/dL (8.4-10.2); Carbon Dioxide 28 mmol/L (22-29); Chloride 94 mmol/L (96-108); Creatinine Clr Calc Pharmacy 133.5; Estimated Glomerular Filt Rate > 60; Glucose Random 85 mg/dL (60-115); Potassium 4.7 mmol/L (3.3-5.1); Sodium 129 mmol/L (135-145)
[2022-02-01] MEDS: Dicyclomine HCl 10 MG CAPSULE 20 MG PO ×4 (09:12→20:12)
[2022-02-01] MEDS: Magnesium Oxide 400 MG TABLET PO (09:12)
[2022-02-01] MEDS: Sucralfate 1 GM TABLET 2 GM PO (09:13)
[2022-02-01] MEDS: Multivitamin TABLET 1 TAB PO (09:13)
[2022-02-01] MEDS: 0.9 % Sodium Chloride 1,000 ML 75 ML IVCONT (09:13)
--- NOTE | 2022-02-01 11:14 | MHC.CM.PN ---
Per ROUNDS discussion, Patient is not yet medically cleared for dc (IV Ceftriaxone, Low Na);Home/resume services is the goal for dc and CM will follow for possible need to adjust the dc plan.
--- NOTE | 2022-02-01 12:14 | P.PNIM_ITS ---
Subjective Subjective Date of Service: 02/01/22 Interval History: More alert and interactive this morning but goes back to sleep quickly, reports feeling sleepy all the time Disoriented as reported in baseline Able to eat diet No reported overnight events Review of Systems Unable to provide much history but denies any pain, shortness of breath Review of Systems: Yes all other systems are reviewed and are negative Physical Exam Vital Signs: Vital Signs: Last Vital Signs Temp 97.8 F 02/01/22 11:30 Pulse 69 02/01/22 11:30 Resp 20 02/01/22 11:30 BP 94/53 L 02/01/22 11:30 Pulse Ox 97 02/01/22 11:30 BMI result Body Mass Index 32.6 Const: Other: Constitutional : Alert, not in distress , looks weak and deconditioned, follows basic commands , speech is clearer today Neck : Normal inspection, Supple Cardiovascular : RRR, no JVP, no lower extremity edema Respiratory : fair bilateral air entry, no crackles, wheezes or rhonchi Gastrointestinal: soft, lax, Normal bowel sounds, Non tender Skin : Warm, Dry Neurological : Alert, disoriented, able to raise both hands and answer some questions , more fluent speech in Danish Objective Data Active Medications Acetaminophen (Acetaminophen 325 Mg Tablet) 650 mg PO Q6H PRN PRN Reason: Pain, Mild (Pain Scale 1-3) Dicyclomine HCl (Dicyclomine Hcl 10 Mg Capsule) 20 mg PO QID [facility] Last Admin: 02/01/22 09:12 Dose: 20 mg Documented by: DEBBY Enoxaparin Sodium (Enoxaparin Sodium 40 Mg/0.4 Ml Syringe) 40 mg SUBCUT Q24H [facility] Last Admin: 01/31/22 16:54 Dose: 40 mg Documented by: JOSE Ceftriaxone Sodium 1 gm/ (Sodium Chloride) 50 mls @ 100 mls/hr IV Q24H [facility] Last Infusion: 01/31/22 15:26 Dose: 0 mls/hr Documented by: JOSE Sodium Chloride (Ns) 1,000 mls @ 75 mls/hr IVCONT .[id number] [facility] Last Admin: 02/01/22 09:13 Dose: 75 mls/hr Documented by: DEBBY Magnesium Oxide (Magnesium Oxide 400 Mg Tablet) 400 mg PO DAILY [facility] Last Admin: 02/01/22 09:12 Dose: 400 mg Documented by: DEBBY Multivitamins/Vitamin C (Multivitamin Tablet) 1 tab PO DAILY [facility] Last Admin: 02/01/22 09:13 Dose: 1 tab Documented by: DEBBY Patient Own Medication (Aptiom 600mg) 600 each PO BID [facility] Last Admin: 02/01/22 09:13 Dose: 600 each Documented by: DEBBY Patient Own Medication (Xcopri 150mg) 1 each PO DAILY [facility] Last Admin: 02/01/22 09:13 Dose: 1 each Documented by: DEBBY Omeprazole (Omeprazole 20 Mg Capsule.Dr) 20 mg PO DAILY@0630 [facility] Last Admin: 02/01/22 05:57 Dose: 20 mg Documented by: YVETTE Ondansetron HCl (Ondansetron Hcl 4 Mg/2 Ml Vial) 4 mg IVPUSH Q8H PRN PRN Reason: Nausea and Vomiting Pharmacy Consult (Consult Rx Perform Med Rec) 1 each MISCELLANE ONCE PRN PRN Reason: Consult order Phenobarbital (Phenobarbital 30 Mg Tablet) 60 mg PO BEDTIME [facility] Last Admin: 01/31/22 21:41 Dose: 60 mg Documented by: COLPEDRITO Sodium Chloride (0.9 % Sodium Chloride Flush 3 Ml Syringe) 3 ml IVFLUSH QSHIFT [facility] Last Admin: 02/01/22 09:13 Dose: 3 ml Documented by: DEBBY Sucralfate (Sucralfate 1 Gm Tablet) 2 gm PO DAILY [facility] Last Admin: 02/01/22 09:13 Dose: 2 gm Documented by: DEBBY Labs CBC & Chem 7: 01/31/22 06:25 02/01/22 05:34 Labs: Laboratory Results - last 24 hr 02/01/22 05:34 Anion Gap 12 Estim Creat Clear Calc 133.5 Estimated GFR > 60 Random Glucose 85 Calcium 9.2 Microbiology Microbiology Results: Microbiology 01/30/22 00:00 Urine Culture - Final Urine Catheterized - Forbes Catheter Klebsiella pneumoniae 01/30/22 12:09 Blood Culture - Preliminary Blood - Venous No growth after 24 hours. 01/30/22 11:56 Blood Culture - Preliminary Blood - Venous No growth after 24 hours. Assessment and Plan (1) Toxic metabolic encephalopathy: Status: Acute (2) Epilepsy: Status: Acute (3) UTI (urinary tract infection): Status: Acute (4) Hyponatremia: Status: Acute Plan A 56 years old lady with PMH of refractory seizures, falls, GERD, encephalomalacia, aphasia among others who presents to the hospital with 2 falls this morning and increase falls, weakness and lethargy over the last week or so. Toxic metabolic encephalopathy seems to be secondary to [facility], Pending neurology consult Psych input appreciated, discontinue risperidone Consider lowering Paliperidone as well Q 2 weeks or change in medication Recurrent reorientation CORRECTIONAL AGENCY DIRECTOR evaluation, start modified diet Aspiration precautions Hyponatremia Sodium 1 down to 129 could be secondary to medications, decreased oral intake to check urine studies Start gentle normal saline Follow BMP with goal above 130 Fall secondary to Physical deconditioning physical and occupational therapy UTI Urine analysis showing bacteria, WBCs and nitrite Klebsiella growing in urine culture Continue ceftriaxone day 3 Refractory Seizure disorder Continue Xcopril, Eslicarbazepine and Phenobarbital neuro eval seizure precautions Schizophrenia Discontinue risperidone Psych eval appreciated DVT PPX Lovenox Quality Stroke Does the patient have a stroke diagnosis?: No VTE Prior VTE?: No VTE Risk Level:: Medical - moderate - high VTE Device Contraindication: Treatment Not Indicated VTE Drug Contraindication: N/A - Med Ordered
[2022-02-01] MEDS: Midodrine HCl 5 MG TABLET PO (13:32)
[2022-02-01] MEDS: cefTRIAXone sodium 1 GM in 0.9 % Sodium Chloride 50 ML IV (13:33)
[2022-02-01 14:30] LABS: Anion Gap 13 (12-20); Blood Urea Nitrogen 13 mg/dL (9-16); Calcium 8.6 mg/dL (8.4-10.2); Carbon Dioxide 24 mmol/L (22-29); Chloride 95 mmol/L (96-108); Creatinine Clr Calc Pharmacy 118.3; Estimated Glomerular Filt Rate > 60; Glucose Random 109 mg/dL (60-115); Potassium 4.5 mmol/L (3.3-5.1); Sodium 127 mmol/L (135-145)
--- NOTE | 2022-02-01 15:30 | MHC.SLORD ---
Speech Language Pathology Order Status: No PO trials administered as patient was asleep, lethargic. Patient's daughter reported patient ate ice cream, drank apple juice with no difficulties. Continue CHOPPED/ADVANCED (NDD3) solids and THIN liquids, CRUSHED pills in PUREE. Patient to have TOTAL SUPERVISION for PO intake as mental status, confusion, impulsivity increase risk for aspiration; Assistance as needed throughout meal.
[2022-02-01] MEDS: Enoxaparin Sodium 40 MG/0.4 ML SYRINGE SUBCUT (18:21)
[2022-02-01 19:18] LABS: Anion Gap 15 (12-20); Blood Urea Nitrogen 14 mg/dL (9-16); Calcium 8.3 mg/dL (8.4-10.2); Carbon Dioxide 22 mmol/L (22-29); Chloride 97 mmol/L (96-108); Creatinine Clr Calc Pharmacy 126.5; Estimated Glomerular Filt Rate > 60; Glucose Random 110 mg/dL (60-115); Potassium 5.6 mmol/L (3.3-5.1); Sodium 128 mmol/L (135-145)
[2022-02-01] MEDS: PHENobarbitaL 30 MG TABLET 60 MG PO (20:12)
[2022-02-02 00:53] LABS: Anion Gap 12 (12-20); Blood Urea Nitrogen 12 mg/dL (9-16); Calcium 9.2 mg/dL (8.4-10.2); Carbon Dioxide 27 mmol/L (22-29); Chloride 93 mmol/L (96-108); Creatinine Clr Calc Pharmacy 128.8; Estimated Glomerular Filt Rate > 60; Glucose Random 94 mg/dL (60-115); Sodium 127 mmol/L (135-145)
[2022-02-02 03:27] VITALS: BP 105/60; PULSE 78; RESP 17; TEMP 36.1; O2SAT 99
[2022-02-02 06:25] LABS: Hematocrit 35.1 % (37.0-47.0); Hemoglobin 11.5 g/dl (12.0-16.0); Mean Corpuscular HGB Conc 32.8 g/dl (31.0-35.0); Mean Corpuscular Hemoglobin 29.9 pg (27.0-33.0); Mean Corpuscular Volume 91.2 fL (80.0-98.0); Platelet Count 252 X10*3/uL (160-400); Red Blood Count 3.85 X10*6/uL (4.20-5.50); Red Cell Distribution Width 13.3 % (11.0-16.0); White Blood Count 3.3 X10*3/uL (4.8-10.8)
[2022-02-02 06:47] LABS: Anion Gap 13 (12-20); Blood Urea Nitrogen 9 mg/dL (9-16); Calcium 9.6 mg/dL (8.4-10.2); Carbon Dioxide 27 mmol/L (22-29); Chloride 95 mmol/L (96-108); Creatinine Clr Calc Pharmacy 131.1; Estimated Glomerular Filt Rate > 60; Glucose Random 85 mg/dL (60-115); Potassium 4.5 mmol/L (3.3-5.1); Sodium 130 mmol/L (135-145)
[2022-02-02 07:23] VITALS: BP 124/68; PULSE 69; RESP 18; TEMP 36.6; O2SAT 100
[2022-02-02] MEDS: 0.9 % Sodium Chloride Flush 3 ML SYRINGE IVFLUSH ×3 (10:47→22:17)
--- NOTE | 2022-02-02 11:01 | MHC.SL.SWA ---
Speech Pathologist Impression: Risk of Aspiration Due to: Neurological Condition Reduced Cognition Dysphasia Diet Status: Liquid Consistency and Strategies for Safe Swallow: Liquid Intake Recommendation: Thin Liquid Intake Strategies: Small Sips No Straws Solid Food Consistency: Dietary Recommendations: Chopped/Advanced (NDD3) Additional Modifications to Solid Foods: Pt is impulsive, distractible, requires monitor/supervision during meals as behavior increases aspiration risk. Oral Medication Intake: Crushed with Puree Please contact the pharmacy regarding appropriate crushable or liquid drug formulations that are available whenever modified delivery is recommended. Compensatory Strategies and Precautions to be Taken for Safe Swallow: Sitting Upright (90 deg) No Straw Liquids from Cup Rate of Ingestion Change Supervision While Eating and Drinking for Safe Swallow: Total Supervision (1:1) Foods to Avoid: Difficult to chew solids Swallowing Recommended Treatments: Compens. Strategy Educat. Recommendation for Speech: Inpatient Speech Therapy Comment: Pt seen this a.m. for toleration of diet and re-assessment of swallow. Pt had breakfast tray in front of her, and appeared to have consumed everything on tray. Had Ensure juice drink remaining, with straw present in drink. Pt asked what she had eaten for breakfast (in Vietnamese) but couldn't report/recall. Pt noted to perseverate starting to express something ( Despues de eso... ) but not finishing her idea. Pt asked y/n questions, was able to identify she was at [facility], but could not recall why she was in hospital. In Vietnamese she expressed People think I am drunk when I talk, but it's because of the medicine. Pt was observed taking straw sip of thin Ensure juice drink, noted to take large sips impulsively, did evidence swallow trigger and timely swallow, mildly wet voice noted after swallow. Pt is tolerating diet consistencies well, however continues at risk for aspiration due to impulsivity/distractibility. Recommend NO STRAWS, Please continue to monitor/supervise PT during meals due to this impulsivity (Pt can feed self, but may take too much, be impulsive). Continue on diet consistencies of Chopped/Advanced (NDD3) w/ Thin liquids, Pills CRUSHED in PUREE. Frequency/Duration: M-F while inpatient Date Range for Service Req: Timeline to reassess: Front Sight Attacher Clinican/Clinical Fellow: No Supervisory Statement: I have reviewed and agree with the student/clinical fellow's documentation: N/A Speech Language Pathologist: Chelsy Joshi M.A., [facility]
[2022-02-02 12:00] VITALS: BP 120/59; PULSE 81; RESP 18; TEMP 36.4; O2SAT 100
[2022-02-02] MEDS: Dicyclomine HCl 10 MG CAPSULE 20 MG PO ×2 (13:40→18:31)
[2022-02-02] MEDS: Sucralfate 1 GM TABLET 2 GM PO (13:40)
[2022-02-02] MEDS: Magnesium Oxide 400 MG TABLET PO (13:41)
[2022-02-02] MEDS: Multivitamin TABLET 1 TAB PO (13:41)
--- NOTE | 2022-02-02 14:33 | HO.PM.IMPN ---
Subjective Subjective Date of Service: 02/02/22 Interval History: seen and examined this morning Follow-up for encephalopathy, UTI, hyponatremia observed sitting up in bed, awake, alert able to answer some simple questions and follow commands, difficult to get full ROS Review of Systems Review of Systems: Yes Unobtainable due to mental status Neurologic Neurologic: Reports confusion Psychiatric Psychiatric: Reports confusion Physical Exam Vital Signs: Vital Signs: Last Vital Signs Temp 97.5 F 02/02/22 12:00 Pulse 81 02/02/22 12:00 Resp 18 02/02/22 12:00 BP 120/59 L 02/02/22 12:00 Pulse Ox 100 02/02/22 12:00 BMI result Body Mass Index 32.6 Const: Other: sitting up in bed eating, appears comfortable General: alert, awake and confusion Nutritional Appearance: average body habitus Orientation/consciousness: oriented to person and confusion Resp: Effort & Inspection: normal respiratory effort and able to speak in complete sentences Cardio: Rate: regular rate Heart sounds: S1 normal heart sound present and S2 normal heart sound present GI: Palpation (GI): Soft to palpation and nontender Neuro: General: oriented to person, moves all extremities and confusion Cranial nerves: Yes Midline tongue present Extrem: General: Yes no pedal edema Objective Data Active Medications Acetaminophen (Acetaminophen 325 Mg Tablet) 650 mg PO Q6H PRN PRN Reason: Pain, Mild (Pain Scale 1-3) Dicyclomine HCl (Dicyclomine Hcl 10 Mg Capsule) 20 mg PO QID [facility] Last Admin: 02/02/22 13:40 Dose: 20 mg Documented by: STACI Enoxaparin Sodium (Enoxaparin Sodium 40 Mg/0.4 Ml Syringe) 40 mg SUBCUT Q24H [facility] Last Admin: 02/01/22 18:21 Dose: 40 mg Documented by: DEBBY Ceftriaxone Sodium 1 gm/ (Sodium Chloride) 50 mls @ 100 mls/hr IV Q24H [facility] Last Infusion: 02/01/22 14:22 Dose: 0 mls/hr Documented by: DEBBY Magnesium Oxide (Magnesium Oxide 400 Mg Tablet) 400 mg PO DAILY [facility] Last Admin: 02/02/22 13:41 Dose: 400 mg Documented by: STACI Multivitamins/Vitamin C (Multivitamin Tablet) 1 tab PO DAILY [facility] Last Admin: 02/02/22 13:41 Dose: 1 tab Documented by: STACI Patient Own Medication (Aptiom 600mg) 600 each PO BID [facility] Last Admin: 02/02/22 11:21 Dose: 600 each Documented by: STACI Patient Own Medication (Xcopri 150mg) 1 each PO DAILY [facility] Last Admin: 02/02/22 11:21 Dose: 1 each Documented by: STACI Omeprazole (Omeprazole 20 Mg Capsule.Dr) 20 mg PO DAILY@0630 [facility] Last Admin: 02/02/22 06:03 Dose: Not Given Documented by: YVETTE Non-Admin Reason: Patient Asleep Ondansetron HCl (Ondansetron Hcl 4 Mg/2 Ml Vial) 4 mg IVPUSH Q8H PRN PRN Reason: Nausea and Vomiting Pharmacy Consult (Consult Rx Perform Med Rec) 1 each MISCELLANE ONCE PRN PRN Reason: Consult order Phenobarbital (Phenobarbital 30 Mg Tablet) 60 mg PO BEDTIME [facility] Last Admin: 02/01/22 20:12 Dose: 60 mg Documented by: YVETTE Sodium Chloride (0.9 % Sodium Chloride Flush 3 Ml Syringe) 3 ml IVFLUSH QSHIFT [facility] Last Admin: 02/02/22 10:47 Dose: 3 ml Documented by: STACI Sucralfate (Sucralfate 1 Gm Tablet) 2 gm PO DAILY [facility] Last Admin: 02/02/22 13:40 Dose: 2 gm Documented by: STACI Labs CBC & Chem 7: 02/02/22 05:55 02/02/22 05:55 Labs: Laboratory Results - last 24 hr 02/01/22 02/02/22 02/02/22 18:43 00:19 05:55 MCV MCH MCHC RDW Plt Count MPV Absolute Nucleated RBC Nucleated RBC % (auto) Anion Gap 15 12 13 Estim Creat Clear Calc 126.5 128.8 131.1 Estimated GFR > 60 > 60 > 60 Random Glucose 110 94 85 Calcium 8.3 L 9.2 D 9.6 02/02/22 05:55 MCV 91.2 MCH 29.9 MCHC 32.8 RDW 13.3 Plt Count 252 MPV 9.0 L Absolute Nucleated RBC 0.000 Nucleated RBC % (auto) 0.0 Anion Gap Estim Creat Clear Calc Estimated GFR Random Glucose Calcium Microbiology Microbiology Results: Microbiology 01/30/22 12:09 Blood Culture - Preliminary Blood - Venous No growth after 48 hours. 01/30/22 11:56 Blood Culture - Preliminary Blood - Venous No growth after 48 hours. Assessment and Plan (1) Toxic metabolic encephalopathy: Status: Acute (2) UTI (urinary tract infection): Status: Acute Plan A 56 years old lady with PMH of refractory seizures, falls, GERD, encephalomalacia, aphasia among others who presents to the hospital with 2 falls this morning and increase falls, weakness and lethargy over the last week or so. Toxic metabolic encephalopathy possibly secondary to polypharmacy vs from UTI brain CT showing chronic changes; likely some component of cognitive impairment at baseline seen by Neurology, does not feel that encephalopathy is secondary to any seizure medication Psych input appreciated, discontinue risperidone Consider lowering Paliperidone as well Q 2 weeks or change in medication Recurrent reorientation PRODUCTION SUPPORT CONSULTANT evaluation, start modified diet Aspiration precautions per previous documentation she is confused at baseline, and is likely approaching her baseline mental status Hyponatremia Sodium 130 could be secondary to medications, decreased oral intake urine studies still pending Follow BMP with goal above 130 Fall secondary to Physical deconditioning PT rec home with PT when medically ready UTI Urine analysis showing bacteria, WBCs and nitrite Klebsiella growing in urine culture Continue ceftriaxone day 4 blood cultures negative Refractory Seizure disorder Continue Xcopril, Eslicarbazepine and Phenobarbital seizure precautions Schizophrenia Discontinue risperidone Psych eval appreciated DVT PPX Lovenox attending: dr. bocanegra patient requires inpatient hospitalization due to encephalopathy, hyponatremia associated workup and treatment Quality Stroke Does the patient have a stroke diagnosis?: No VTE Prior VTE?: No VTE Risk Level:: Medical - moderate - high VTE Device Contraindication: Treatment Not Indicated VTE Drug Contraindication: N/A - Med Ordered
[2022-02-02] MEDS: cefTRIAXone sodium 1 GM in 0.9 % Sodium Chloride 50 ML IV (15:16)
[2022-02-02 16:00] VITALS: BP 99/71; PULSE 86; RESP 14; TEMP 36.6; O2SAT 100
[2022-02-02] MEDS: Enoxaparin Sodium 40 MG/0.4 ML SYRINGE SUBCUT (18:31)
[2022-02-02 19:59] VITALS: BP 143/66; PULSE 91; RESP 18; TEMP 36.9; O2SAT 95
[2022-02-02 23:37] VITALS: BP 105/63; PULSE 75; RESP 17; TEMP 36.1; O2SAT 98
[2022-02-03 03:59] VITALS: BP 110/67; PULSE 73; RESP 17; TEMP 36.4; O2SAT 96
[2022-02-03 07:52] VITALS: BP 114/60; PULSE 75; RESP 17; TEMP 36.1; O2SAT 97
[2022-02-03] MEDS: 0.9 % Sodium Chloride Flush 3 ML SYRINGE IVFLUSH (10:26)
[2022-02-03 11:42] VITALS: BP 98/67; PULSE 80; RESP 17; TEMP 36.2; O2SAT 96
[2022-02-03 11:56] VITALS: BP 98/67; PULSE 80
--- NOTE | 2022-02-03 13:11 | HO.PM.IMPN ---
Subjective Subjective Date of Service: 02/03/22 Interval History: seen and examined this morning follow up for AMS, UTI no overnight events Review of Systems Review of Systems: Yes all other systems are reviewed and are negative Constitutional Constitutional: Denies chills and Denies fever(s) Cardiovascular Cardiovascular: Denies chest pain, Denies palpitations and Denies dyspnea Respiratory Respiratory: Denies cough and Denies dyspnea Gastrointestinal Gastrointestinal: Denies abdominal pain Neurologic Neurologic: Reports confusion Psychiatric Psychiatric: Reports confusion Endocrine Endocrine: Denies palpitations Physical Exam Vital Signs: Vital Signs: Last Vital Signs Temp 97.1 F 02/03/22 11:42 Pulse 80 02/03/22 11:56 Resp 17 02/03/22 11:42 BP 98/67 02/03/22 11:56 Pulse Ox 96 02/03/22 11:42 BMI result Body Mass Index 32.6 Const: Other: sitting up in bed eating, appears comfortable General: alert, awake and confusion Nutritional Appearance: average body habitus Orientation/consciousness: oriented to person and confusion Resp: Effort & Inspection: normal respiratory effort and able to speak in complete sentences Cardio: Rate: regular rate Heart sounds: S1 normal heart sound present and S2 normal heart sound present GI: Palpation (GI): Soft to palpation and nontender Neuro: General: oriented to person, moves all extremities and confusion Cranial nerves: Yes Midline tongue present Extrem: General: Yes no pedal edema Objective Data Active Medications Acetaminophen (Acetaminophen 325 Mg Tablet) 650 mg PO Q6H PRN PRN Reason: Pain, Mild (Pain Scale 1-3) Dicyclomine HCl (Dicyclomine Hcl 10 Mg Capsule) 20 mg PO QID [facility] Last Admin: 02/03/22 10:26 Dose: Not Given Documented by: STACI Non-Admin Reason: Patient Refused Enoxaparin Sodium (Enoxaparin Sodium 40 Mg/0.4 Ml Syringe) 40 mg SUBCUT Q24H [facility] Last Admin: 02/02/22 18:31 Dose: 40 mg Documented by: DEVONTE Ceftriaxone Sodium 1 gm/ (Sodium Chloride) 50 mls @ 100 mls/hr IV Q24H [facility] Last Infusion: 02/02/22 16:03 Dose: 0 mls/hr Documented by: DEVONTE Magnesium Oxide (Magnesium Oxide 400 Mg Tablet) 400 mg PO DAILY [facility] Last Admin: 02/02/22 13:41 Dose: 400 mg Documented by: STACI Multivitamins/Vitamin C (Multivitamin Tablet) 1 tab PO DAILY [facility] Last Admin: 02/03/22 10:26 Dose: Not Given Documented by: STACI Non-Admin Reason: Patient Refused Patient Own Medication (Aptiom 600mg) 600 each PO BID [facility] Last Admin: 02/03/22 10:25 Dose: 600 each Documented by: STACI Patient Own Medication (Xcopri 150mg) 1 each PO DAILY [facility] Last Admin: 02/03/22 10:22 Dose: 1 each Documented by: STACI Omeprazole (Omeprazole 20 Mg Capsule.Dr) 20 mg PO DAILY@0630 [facility] Last Admin: 02/03/22 05:39 Dose: Not Given Documented by: PATTY Non-Admin Reason: Patient Refused Ondansetron HCl (Ondansetron Hcl 4 Mg/2 Ml Vial) 4 mg IVPUSH Q8H PRN PRN Reason: Nausea and Vomiting Pharmacy Consult (Consult Rx Perform Med Rec) 1 each MISCELLANE ONCE PRN PRN Reason: Consult order Phenobarbital (Phenobarbital 30 Mg Tablet) 60 mg PO BEDTIME [facility] Last Admin: 02/02/22 22:16 Dose: Not Given Documented by: PATTY Non-Admin Reason: Patient Refused Sodium Chloride (0.9 % Sodium Chloride Flush 3 Ml Syringe) 3 ml IVFLUSH QSHIFT [facility] Last Admin: 02/03/22 10:26 Dose: 3 ml Documented by: STACI Sucralfate (Sucralfate 1 Gm Tablet) 2 gm PO DAILY [facility] Last Admin: 02/02/22 13:40 Dose: 2 gm Documented by: STACI Labs CBC & Chem 7: 02/02/22 05:55 02/02/22 05:55 Assessment and Plan (1) UTI (urinary tract infection): Status: Acute (2) Laceration of scalp: Status: Acute Plan A 56 years old lady with PMH of refractory seizures, falls, GERD, encephalomalacia, aphasia among others who presents to the hospital with 2 falls this morning and increase falls, weakness and lethargy over the last week or so. Toxic metabolic encephalopathy multifactorial from polypharmacy and UTI brain CT showing chronic changes seen by Neurology, does not feel that encephalopathy is secondary to any seizure medication Psych input appreciated, discontinue risperidone Consider lowering Paliperidone as well Q 2 weeks or change in medication, should follow up with outpatient provider - daughter states she did not give her mom this months dose b/c she was concerned about sedation [employer]ESPERSON [employer] evaluation, modified diet Aspiration precautions per previous documentation she is confused at baseline, seems to be at baseline mental status Hyponatremia Sodium 130 could be secondary to medications, decreased oral intake urine studies still pending Follow BMP with goal above 130 Fall secondary to Physical deconditioning PT rec home with PT when medically ready OT rec 24 hour care family concerned about bp dropping when standing, will check orthostatic blood pressure scalp laq, 2 jakub placed in ED 01/30, should be removed after 7 days UTI Urine analysis showing bacteria, WBCs and nitrite Klebsiella growing in urine culture Continue ceftriaxone day 5 blood cultures negative Refractory Seizure disorder no ssezure activity since admission Continue Xcopril, Eslicarbazepine and Phenobarbital seizure precautions Schizophrenia Discontinue risperidone seen by psych, recs appreciated DVT PPX Lovenox attending: dr. bocanegra patient requires inpatient hospitalization due to encephalopathy, hyponatremia associated workup and treatment Quality Stroke Does the patient have a stroke diagnosis?: No VTE Prior VTE?: No VTE Risk Level:: Medical - moderate - high VTE Device Contraindication: Treatment Not Indicated VTE Drug Contraindication: N/A - Med Ordered
[2022-02-03 14:01] VITALS: BP 98/67; PULSE 80
[2022-02-03] MEDS: cefTRIAXone sodium 1 GM in 0.9 % Sodium Chloride 50 ML IV (14:30)
[2022-02-03] MEDS: Dicyclomine HCl 10 MG CAPSULE 20 MG PO (14:35)
[2022-02-03] MEDS: Magnesium Oxide 400 MG TABLET PO (14:35)
[2022-02-03] MEDS: Sucralfate 1 GM TABLET 2 GM PO (14:37)
--- NOTE | 2022-02-03 14:43 | W.MHC.F2F ---
Service Date Service Date: 02/03/22 Encounter Date of encounter: 02/03/22 Reasons for Services Signs and symptoms assessed: unsteady gait, fall risk Reason for physical therapy: home safety and mobility and gait/transfer training Reason for occupational therapy: home safety and mobility and gait/transfer training Overseeing Care: Lara Rivas Homebound: Leaving the home is medically contraindicated at this time without the asist of a device and/or another person due th the listed conditions above and below. Reason homebound: unsteady gait / fall risk and poor balance / fall risk Certification: Based on the above findings, I certify that this patient is confined to the home and needs intermittent detention care, physical therapy and/or speech therapy, or continues to need occupational therapy. The patient is under my care, and I have initiated the establishment of the plan of care. The patient will be followed by a physician who will periodically review the plan of care.
--- NOTE | 2022-02-03 14:47 | PM.DS ---
DS: Providers Provider Date of Service: 02/03/22 Date of admission: 01/30/22 16:44 Date of discharge: 02/03/22 Primary care physician: Caity Barnes MD Consults: 01/30/22 16:43 Consult to Psychiatry Routine Consulting Provider: Psych Covering Reason for consultation: Lethargy, multipharmacy, neurology sug. dec Risperidone & Paliperidone 01/30/22 16:48 Consult to Neurology Routine Consulting Provider: [facility] Reason for consultation: increase lethargy, falls Attending physician on discharge: Zachary Maki Discharging clinician: Josefina Bolaños DS: Diagnosis Discharge Diagnosis (1) UTI (urinary tract infection): Status: Acute (2) Laceration of scalp: Status: Acute (3) Toxic metabolic encephalopathy: Status: Acute (4) Epilepsy: Status: Acute DS: Summary Hospital Course Hospital Course: From H&P on day of admission A 56 years old lady with PMH of refractory seizures, falls, GERD, encephalomalacia, aphasia among others who presents to the hospital with 2 falls this morning and increase falls, weakness and lethargy over the last week or so. The patient was unable to provide any meaningful history and the most date were taken from emergency provider EMS notes as her daughter did not respond to the phone.? The patient was brought to the hospital by family for concerns about medications overdose given increased falls and being sedated for most of time.? Reported ? Stopping of gabapentin recently for the same problem but with no effect.? The emergency blood work and images did not show any acute findings.? Admitted for further evaluation and treatment. Toxic metabolic encephalopathy. Likely multifactorial from polypharmacy and UTI. brain CT showing chronic changes. no focal neurological deficits noted. Seen was seen in consultation by Neurology, does not feel that encephalopathy is secondary to any seizure medication. Recommended not to change seizure medication.She has a follow up appointment with her neurologist in [place] on Sunday, her daughter states that they have recommended a surgical procedure but she has declined. She should continue current seizure medication regimen and keep follow-up appointment with outpatient neurologist. She was seen by the Psych team and risperidone was discontinued. She should follow up with outpatient psych provider - did not receive dose of invega this month as daughter was concerned about her level of sedation. Medication adjustment should be discussed with her outpatient provider. Orthostatic blood pressures were checked and she did not meet criteria for orthostatic hypotension. She was evaluated by Physical therapy and Occupational therapy who recommended home with services. Her daughter will be taking time off from work to stay with her and she has assistance from her other daughter is well. She will return home with resumptoin of [employer]IV[employer] CLERK and VNA services. Case management has provided information about foster care programs as well. Hyponatremia Sodium decreased to 127. She was treatedwith gentle IVF and sodium increased to 130. Possibly secondary to medications vs decreased po intake. Recommend outpatient follow up UTI. Urine analysis showing bacteria, WBCs and nitrite. Klebsiella growing in urine culture. Treated with ceftriaxone, will complete course of ceftin on discharge. blood cultures have remained negative to date Time Spent with Patient Time attestation: Total time spent providing and/or coordinating discharge services: Discharge coordination time: Greater than 30 minutes Quality: Safe Use of Opioids Does Pt have an Active Cancer Diagnosis on the Problem List?: No Quality: Stroke Does the patient have a stroke diagnosis?: No Physical Exam Vital Signs: Vital Signs: Last Vital Signs Temp 97.1 F 02/03/22 11:42 Pulse 80 02/03/22 14:01 Resp 17 02/03/22 11:42 BP 98/67 02/03/22 14:01 Pulse Ox 96 02/03/22 11:42 BMI result Body Mass Index 32.6 Const: Other: sitting up in bed eating, appears comfortable General: alert, awake and confusion Nutritional Appearance: average body habitus Orientation/consciousness: oriented to person and confusion Resp: Effort & Inspection: normal respiratory effort and able to speak in complete sentences Cardio: Rate: regular rate Heart sounds: S1 normal heart sound present and S2 normal heart sound present GI: Palpation (GI): Soft to palpation and nontender Neuro: General: oriented to person, moves all extremities and confusion Cranial nerves: Yes Midline tongue present Extrem: General: Yes no pedal edema DS: Data Data Completed and Pending Labs on day of discharge: Preliminary micro results at discharge 01/30/22 12:09 Blood Culture - Preliminary Blood - Venous No growth after 48 hours. 01/30/22 11:56 Blood Culture - Preliminary Blood - Venous No growth after 48 hours. Discharge Plan Discharge Patient Disposition: Home Health Service Discharge Diagnosis: falls UTI AMS hyponatremia Referrals: [facility] [Outside] - 1 Day (RESUMPTION OF [facility] AND NEW HOME OT/PT, OT/ AND PT WILL START NEXT WEEK AND NURSE OR THERAPIST WILL BE CALLING TO SCHEDULE. ) Caity Barnes MD [Primary Care Provider] - 1 Week Discharge Medications: New cefuroxime axetil 500 mg tablet 500 mg PO BID 2 Days Qty: 4 0RF Continued magnesium oxide 400 mg (241.3 mg magnesium) tablet 400 mg PO DAILY 90 Days Qty: 90 1RF phenobarbital 64.8 mg tablet 2 tab PO BEDTIME 0RF Xcopri 150 mg tablet 1 tab PO DAILY 0RF cranberry extract 250 mg Tablet 250 mg PO DAILY 0RF Aptiom 600 mg tablet 600 mg PO BID 0RF multivitamin [Daily Multi-Vitamin] Tablet 1 tab PO DAILY 0RF Invega Sustenna 234 mg/1.5 mL syringe 234 mg IM QMONTH 0RF dicyclomine 10 mg capsule 20 mg PO QID 30 Days Qty: 240 6RF pantoprazole 40 mg tablet,delayed release (DR/EC) 40 mg PO DAILY 30 Days Qty: 30 6RF sucralfate 1 gram tablet 2 g PO DAILY 90 Days Qty: 180 1RF Discontinued risperidone 0.5 mg tablet 0.5 mg PO BID 0RF No Action (DME) walker Misc See Rx Instructions .Route Qty: 1 0RF Rx Instructions: use as needed daily for gait assistance (DME) diaper,brief,adult,disposable Misc See Rx Instructions .ROUTE .MEDSUPPLY Qty: 10 0RF Rx Instructions: As directed Discharge Orders: Discharge Order (Routine); Ordered 02/03/22 Ordered By: Josefina Bolaños Diet: advance to usual diet Activity on Discharge: As tolerated Stand Alone Forms: Patient Portal Discharge page Other Ambulatory Orders: Basic Metabolic Panel (Routine) Timeframe: 1 Week Facility: [facility] - Location: Laboratory Ordered By: Josefina Bolaños Care Plan Goals: see below Health Concerns: altered mental status UTI low sodium level Plan of Treatment: risperidone has been discontinued take entire course of antibiotics as prescribed call to schedule follow up with PCP keep scheduled appointment on Sunday with neurologist call to move up appointment with psychiatrist if possible you will be discharged home with PT and OT recommend to repeat sodium levels next week Assessment: see discharge summary Discharge Date/Time: 02/03/22 15:49
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
== END 2022-02-03 15:49 | disposition home health service (06) | DRG 92 ==
LOC: HO.ED 14:31 → HO.EDOVER 17:09 → HO.S3 19:33
PROVIDERS: Admitting Provider Student in an Organized Health Care Education/Training Program; Emergency Provider Emergency Medicine; PCP Internal Medicine; Visit Provider Physician Assistant Medical
DX: G92.8 Other toxic encephalopathy (principal); F33.0 Major depressive disorder, recurrent, mild; N39.0 Urinary tract infection, site not specified; E87.1 Hypo-osmolality and hyponatremia; K21.9 Gastro-esophageal reflux disease without esophagitis; S01.01XA Laceration without foreign body of scalp, initial encounter; W18.30XA Fall on same level, unspecified, initial encounter; G40.909 Epilepsy, unspecified, not intractable, without status epilepticus; T50.915A Adverse effect of multiple unspecified drugs, medicaments and biological substances, initial encounter; B96.1 Klebsiella pneumoniae [K. pneumoniae] as the cause of diseases classified elsewhere; R29.6 Repeated falls; F20.9 Schizophrenia, unspecified; Z91.81 History of falling; Z20.822 Contact with and (suspected) exposure to COVID-19; Z94.5 Skin transplant status; Z98.51 Tubal ligation status; Z91.041 Radiographic dye allergy status; Z88.0 Allergy status to penicillin; Z88.8 Allergy status to other drugs, medicaments and biological substances; Z79.899 Other long term (current) drug therapy
CPT/HCPCS: 36415; 70450; 71045; 72125; 80048; 80076; 81001; 82140; 82550; 83605; 83690; 83735; 84443; 84484; 85025; 85027; 85610; 86140; 87040; 87086; 87088; 87186; 87635; 92526; 92610; 93005; 96365; 97116; 97162; 97166; 97530; 97535; 99285; J0696; J1650

== ENCOUNTER 2022-03-02 10:24 | Outpatient (REF) | payer MEDICARE, MEDICAID, SELFPAY ==
[2022-03-02 12:00] LABS: Anion Gap 15 (12-20); Blood Urea Nitrogen 13 mg/dL (9-16); Calcium 9.4 mg/dL (8.4-10.2); Carbon Dioxide 28 mmol/L (22-29); Chloride 100 mmol/L (96-108); Estimated Glomerular Filt Rate > 60; Glucose Random 79 mg/dL (60-115); Potassium 4.3 mmol/L (3.3-5.1); Sodium 139 mmol/L (135-145)
== END 2022-03-02 10:25 | disposition home or self-care (01) ==
LOC: HO.LAB 10:24
PROVIDERS: PCP Internal Medicine; Visit Provider Physician Assistant Medical
DX: E87.1 Hypo-osmolality and hyponatremia (principal)
CPT/HCPCS: 36415; 80048

== ENCOUNTER 2022-04-28 20:54 | Inpatient (IN) | payer MEDICARE, MEDICAID, SELFPAY ==
--- NOTE | ~2022-04-28 | CT_ITS ---
EXAMINATION: CT CERVICAL SPINE WITHOUT CONTRAST CLINICAL INFORMATION: Fall. COMPARISON: CT cervical spine 01/30/2022. TECHNIQUE: Helical noncontrast CT imaging of the cervical spine. Source images were reviewed along with axial reconstructions and sagittal and coronal MPRs. This CT examination was performed using dose optimization techniques as appropriate, variously including the following: *Automated exposure control *Adjustment of mA and/or kV according to patient size (this includes techniques or standardized protocols for targeted exams where dose is matched to indication/reason for exam; i.e. extremities or head) *Use of iterative reconstruction technique DLP: 1001 mGy-cm FINDINGS: The atlantooccipital and atlantoaxial articulations remain well aligned. Straightening of the normal cervical lordosis. Otherwise, there is anatomic alignment of the vertebral bodies and posterior elements. No evidence of acute fracture or subluxation. There is mild to moderate multilevel cervical spondylosis with disc space narrowing, osteophytes and uncovertebral hypertrophy. There is no prevertebral soft tissue swelling. The thyroid gland and remaining cervical soft tissues are normal in appearance. The lung apices demonstrate no abnormalities. Redemonstration of postoperative changes in the left neck at the level of the thyroid gland with surgical clips and a neurostimulator lead. Periapical lucencies are incidentally noted. CT/CT cervical spine wo con IMPRESSION: No acute cervical spine fracture or malalignment. Cervical spondylosis. Chronic postoperative changes in the soft tissues of the left neck. Periapical lucencies noted. Recommend dental referral.
--- NOTE | ~2022-04-28 | CT_ITS ---
EXAMINATION: CT HEAD WITHOUT CONTRAST CLINICAL INFORMATION: Hit head during seizure. COMPARISON: CT brain 01/30/2022 TECHNIQUE: Contiguous axial imaging was performed from the skull base to vertex without intravenous administration of contrast. This CT examination was performed using dose optimization techniques as appropriate, variously including the following: *Automated exposure control *Adjustment of mA and/or kV according to patient size (this includes techniques or standardized protocols for targeted exams where dose is matched to indication/reason for exam; i.e. extremities or head) *Use of iterative reconstruction technique DLP: 713 mGy-cm FINDINGS: There is no acute intra-axial, extra-axial bleed, masses or midline shift. There is left parietal lobe encephalomalacia with overlying craniotomy changes from previous intervention. The lateral ventricles are symmetrical in size and configuration except for extra-axial dilatation of left occipital horn lateral ventricle. Bone windows are grossly unremarkable except for left parietal craniotomy. Bilateral paranasal sinuses and mastoid air cells are well-aerated. CT/CT head/brain wo con IMPRESSION: No acute intracranial process seen. Left parietal encephalomalacia with overlying craniotomy change. It is stable compared to previous study 01/30/2022
--- NOTE | ~2022-04-28 | XR_ITS ---
EXAMINATION: XR SHOULDER, RIGHT CLINICAL INFORMATION: Fall COMPARISON: July 05, 2021 and studies dating back to November 16, 2020 TECHNIQUE: Three views of the right shoulder. FINDINGS: Old fracture deformity with bony union is seen involving the proximal right humerus. No acute fracture or dislocation is identified. Glenohumeral joint appears unremarkable. No evidence of calcific tendinitis. XR/XR shoulder RT min 2V IMPRESSION: No acute fracture or dislocation of the right shoulder. Old fracture deformity with bony union.
--- NOTE | ~2022-04-28 | CT_ITS ---
EXAMINATION: CT CHEST, ABDOMEN AND PELVIS WITHOUT CONTRAST. CLINICAL INFORMATION: Fall. COMPARISON: CT abdomen/pelvis 09/10/2018. TECHNIQUE: Multidetector volumetric imaging was performed from the thoracic inlet through the pubic symphysis without intravenous contrast. Sagittal and coronal reformatted images were obtained on the technologist's workstation. This CT examination was performed using dose optimization techniques as appropriate, variously including the following: *Automated exposure control *Adjustment of mA and/or kV according to patient size (this includes techniques or standardized protocols for targeted exams where dose is matched to indication/reason for exam; i.e. extremities or head) *Use of iterative reconstruction technique DLP: 361 and 1001 mGy-cm FINDINGS: CHEST: Lung: Limited examination due to respiratory motion. No focal airspace opacity or significant groundglass disease. There is a 0.2 cm right lower lobe pulmonary nodule (17:333). There is a 0.2 cm left upper lobe nodule (17:174). There is a calcified granuloma in the right lower lobe (17:341). The central airways are patent. Mediastinum: Normal heart size. No pericardial effusion. No mediastinal lymphadenopathy by size criteria. Evaluation of hilar structures is limited in the absence of intravenous contrast and respiratory motion. Coronary calcifications. Atherosclerotic disease of the thoracic aorta which is of normal diameter. Postoperative changes adjacent to the left lobe of the thyroid with a neurostimulator device. Pericardium/Pleura: No pleural effusion. No pleural mass or thickening. No pneumothorax. Chest Wall/Axilla: No lymphadenopathy by size criteria. ABDOMEN/PELVIS: Peritoneal Space: No free air or free fluid. Liver, Gallbladder, Biliary Tree: The liver is normal in size, shape, and attenuation. No focal hepatic lesion or biliary ductal dilatation is present. Cholelithiasis but no evidence to suspect acute cholecystitis. Pancreas: Unremarkable. Spleen: Partially calcified low attenuating lesion in the inferior spleen (22:200) is decreased in size when compared to 09/10/2018. Adrenal Glands: Unremarkable. Kidneys and Ureters: The kidneys are normal in size, shape, and attenuation. No hydronephrosis, hydroureter, or calculi seen. No perinephric stranding. Bladder: Unremarkable. Gastrointestinal Tract: The small and large bowel are unremarkable. The appendix is unremarkable. Abdominal Wall: No significant hernia is appreciated. Lymphovascular Structures: No lymphadenopathy by size criteria. Atherosclerotic disease. Abdominal aorta is normal in diameter. Pelvic Viscera: Unremarkable. Osseus Structures: Stable mild superior endplate compression deformity at T12. No evidence of displaced rib fractures, although evaluation is limited due to motion. CT/CT abdomen pelvis wo con IMPRESSION: Evaluation of acute traumatic sequela is limited due to motion and lack of intravenous contrast. Additionally, evaluation of spinal fractures is limited in the absence of thin section, high resolution reconstruction targeted images of the spine. Accounting for these limitations, no discrete acute traumatic sequela is noted. Cholelithiasis but no evidence of acute cholecystitis. Sub-2 mm pulmonary nodules are indeterminate. Assuming patient has no history of malignancy, recommend follow-up per Fleischner Society recommendations. According to the UPDATED 2017 Fleischner Society recommendations, the advised followup imaging for solid nodules < 6 mm is: LOW RISK PATIENT: No routine follow up. HIGH RISK PATIENT: Optional CT at 12 months.
[2022-04-28 21:05] VITALS: BP 113/75; PULSE 91; RESP 18; TEMP 36.2; O2SAT 95; BMI 33.9
--- NOTE | 2022-04-28 21:53 | ED.PSYCH ---
HPI - Psych General Chief Complaint: Psychiatric Symptoms Stated Complaint: Crisis Time Seen by Provider: 04/28/22 21:52 Source: patient and family (Daughter) Mode of arrival: EMS History of Present Illness HPI Narrative: This is a 56-year-old female who is brought in by her daughter and dropped off but was evaluated in the community by N. The concerns were for increased paranoia and delusion. Patient describes that the neighbors are coming in in taking the food out of her refrigerator, she denies any suicidal or homicidal ideations and states that yes she hears voices. She states the neighbors have keys and let themselves in. Related Data Home Medications Medication Instructions Recorded Confirmed cenobamate 150 mg tablet (Xcopri) 1 tab PO DAILY 04/28/22 04/28/22 clobazam 10 mg tablet 1 tab PO BID 04/28/22 04/28/22 dicyclomine 10 mg capsule 1 cap PO QID 04/28/22 04/28/22 eslicarbazepine 600 mg tablet 300 mg PO TID 04/28/22 04/28/22 (Aptiom) gabapentin 300 mg capsule 1 cap PO TID 04/28/22 04/28/22 magnesium oxide 400 mg (241.3 mg 1 tab PO DAILY 04/28/22 04/28/22 magnesium) tablet pantoprazole 40 mg tablet,delayed 1 tab PO DAILY 04/28/22 04/28/22 release sucralfate 1 gram tablet 2 tab PO DAILY 04/28/22 04/28/22 trazodone 50 mg tablet 1 tab PO BEDTIME PRN Insomnia 04/28/22 04/28/22 Previous Rx's Medication Instructions Recorded diaper,brief,adult,disposable #10 ea 11/24/20 blood pressure monitor #1 ea 03/01/22 Allergies Allergy/AdvReac Type Severity Reaction Status Date / Time Iodinated Contrast Media Allergy Intermediate RED ALL Verified 03/01/22 15:06 [IV Dye, Iodine Containing] OVER NAUSEA AND LOST RESPIRATIONS Penicillins [PENICILLINS] Allergy Intermediate Unknown Verified 03/01/22 15:06 phenytoin [From Dilantin] Allergy Intermediate gum Verified 03/01/22 15:06 swelling lamotrigine [From Lamictal] Allergy Unknown unknown Verified 03/01/22 15:06 Review of Systems Review of Systems: Pertinent positives and negatives as stated in HPI 10 point review of systems is otherwise negative. [facility] Past Medical History Source: nursing notes reviewed Medical History Class 1 obesity due to excess calories with body mass index (BMI) of 30.0 to 30.9 in adult Depression Encephalomalacia Epilepsy Epilepsy Expressive aphasia Gait instability GERD (gastroesophageal reflux disease) Hyponatremia Hypotension Mild recurrent major depression Overactive bladder Polyarthralgia Pre-op evaluation Pre-op examination Screening for cervical cancer Seizures Unsteady gait Urge urinary incontinence Urinary incontinence Surgical History H/O prior ablation treatment History of section History of skin graft History of tubal ligation History of tumor Surgical history unknown Family History Family History Father Heart problem Mother Diabetes Low blood pressure Family/Other Substance use disorder Mental health disorder Social History Social History Household Members: Family Housing: House Do you presently have visiting nurse or other home services: Yes Alcohol intake: never Patient Tobacco Use Status: Never used Tobacco e-Cigarette/Vaping Use: Never Used Second Hand Smoke Exposure: No Advance Directives: No Advance Directives Date on File: 04/19/21 service: No Current occupational status: disabled Current occupation: rt handed Cognitive needs: Yes (walker) Hearing needs: No Vision needs: Yes (glasses) Physical Exam Vital Signs: Vital Signs: Last Vital Signs Temp 97.1 F 04/28/22 21:05 Pulse 91 04/28/22 21:05 Resp 18 04/28/22 21:05 BP 113/75 04/28/22 21:05 Pulse Ox 95 04/28/22 21:05 O2 Del Method 04/28/22 21:05 BMI result Body Mass Index 33.9 VITAL SIGNS: Reviewed. GENERAL: Well developed, well nourished, in no acute distress. HEAD: Normocephalic/atraumatic EYES: PERRLA, EOMI EARS: Ext canals without abnormality OROPHARYNX: no oral lesions noted, posterior pharynx clear LUNGS: Normal breath sounds. No adventitious sounds or accessory muscle use. SpO2<95> CARDIOVASCULAR: Regular rate and rhythm without noted murmurs ABDOMEN: Soft, non-tender, non-distended with bowel sounds. MUSCULOSKELETAL: No tenderness, deformities, or effusions noted on gross inspection. EXTREMITIES: No cyanosis, clubbing or edema. SKIN: Inspection of the skin reveals no rashes NEUROLOGIC: Alert and strength and sensation to light touch were grossly intact x 4, cranial nerves 2-12 are grossly intact.. PSYCH: Flat affect, calm and cooperative Course Course Course Narrative: 56-year-old female with history and clinical presentation consistent with increased paranoia and delusion although she states that she has continued taking her medications. She is currently refusing a complete workup but has allowed for a CBC to be drawn. COVID-19 is negative and patient is otherwise a bed search. She is not Section 12 at this time Reevaluation(s) Reevaluation #1: Patient placed in physician observation because the patient needed more time for inpatient bed search. At the time observation was started the patient's vital signs were stable, patient is alert and oriented, neuro: Nonfocal, CV RRR, lungs clear Time: 22:46 [facility] - Psych Lab Data Result diagrams: 04/28/22 22:32 Labs: Lab Results 04/28/22 04/28/22 Range/Units 21:36 22:32 WBC 5.4 (4.8-10.8) X10*3/uL RBC 3.66 L (4.20-5.50) X10*6/uL Hgb 11.3 L (12.0-16.0) g/dl Hct 34.2 L (37.0-47.0) % MCV 93.4 (80.0-98.0) fL MCH 30.9 (27.0-33.0) pg MCHC 33.0 (31.0-35.0) g/dl RDW 14.3 (11.0-16.0) % Plt Count 223 (160-400) X10*3/uL MPV 9.1 L (9.4-12.3) fL Immature Gran % (Auto) 0.4 (0.0-0.4) % Neut % (Auto) 57.5 (45-73) % Lymph % (Auto) 29.8 (20-40) % Wilkes % (Auto) 9.9 (2-11) % Eos % (Auto) 1.5 (0-4) % Baso % (Auto) 0.9 (0-2) % Lymph # (Auto) 1.6 (1.2-4.9) X10*3/uL Wilkes # (Auto) 0.5 (0.1-1.2) X10*3/uL Eos # (Auto) 0.1 (0.0-0.4) X10*3/uL Baso # (Auto) 0.1 (0.0-0.2) X10*3/uL Abs Immat Gran (auto) 0.02 (0.00-0.03) X10*3/uL Absolute Neuts (auto) 3.1 (2.0-8.3) x10*3/uL Absolute Nucleated RBC 0.000 (0.0-0.012) X10*3/uL Nucleated RBC % (auto) 0.0 (0.0-0.2) /100WBC COVID-19 (MICHELLE) Negative (Negative) COVID-19 Clin Com See Note Discharge Plan Discharge Clinical Impression: Delusion, Paranoid Patient Disposition: Still a Patient Prescriptions: No Action trazodone 50 mg tablet 1 tab PO BEDTIME PRN (Reason: Insomnia) sucralfate 1 gram tablet 2 tab PO DAILY magnesium oxide 400 mg (241.3 mg magnesium) tablet 1 tab PO DAILY pantoprazole 40 mg tablet,delayed release (DR/EC) 1 tab PO DAILY gabapentin 300 mg capsule 1 cap PO TID dicyclomine 10 mg capsule 1 cap PO QID clobazam 10 mg tablet 1 tab PO BID Aptiom 600 mg tablet 300 mg PO TID Xcopri 150 mg tablet 1 tab PO DAILY (DME) diaper,brief,adult,disposable Misc See Rx Instructions .ROUTE .MEDSUPPLY Qty: 10 0RF Rx Instructions: As directed (DME) blood pressure monitor Kit See Rx Instructions .Route Qty: 1 0RF Rx Instructions: As directed
[2022-04-28 22:15] LABS: COVID-19 Test Negative (Negative)
[2022-04-28 22:36] LABS: MANUAL DIFF FLAG NO
--- NOTE | 2022-04-28 22:36 | PC.NURSE ---
PT refusing labs except for the small tube. Lav collected, unable to obtain an sst5. Dr. Miner and RN aware.
[2022-04-28 22:40] LABS: Basophils Absolute Auto 0.1 X10*3/uL (0.0-0.2); Basophils Percent Auto 0.9 % (0-2); Eosinophils Absolute Auto 0.1 X10*3/uL (0.0-0.4); Eosinophils Percent Auto 1.5 % (0-4); Hematocrit 34.2 % (37.0-47.0); Hemoglobin 11.3 g/dl (12.0-16.0); Imm Gran Abs Auto 0.02 X10*3/uL (0.00-0.03); Imm Gran Pct Auto 0.4 % (0.0-0.4); Lymphocytes Absolute Auto 1.6 X10*3/uL (1.2-4.9); Lymphocytes Percent Auto 29.8 % (20-40); Mean Corpuscular Hemoglobin 30.9 pg (27.0-33.0); Mean Corpuscular Volume 93.4 fL (80.0-98.0); Mean Platelet Volume 9.1 fL (9.4-12.3); Monocytes Absolute Auto 0.5 X10*3/uL (0.1-1.2); Monocytes Percent Auto 9.9 % (2-11); Neutrophils Absolute Auto 3.1 x10*3/uL (2.0-8.3); Neutrophils Percent Auto 57.5 % (45-73); Platelet Count 223 X10*3/uL (160-400); Red Blood Count 3.66 X10*6/uL (4.20-5.50); Red Cell Distribution Width 14.3 % (11.0-16.0); White Blood Count 5.4 X10*3/uL (4.8-10.8)
[2022-04-28 23:43] VITALS: RESP 17
--- NOTE | 2022-04-29 06:34 | PC.NURSE ---
Patient slept intermittently, currently in bed appears sleeping, no distress observed/reported, patient was assessed by [facility] in the community disposition inpatient bed search, pending urine sample for UA, behavior unpredictable but non concerning, patient repeatedly asked for discharge but made aware of her dispositions, patient is Maori speaking, med rec completed/MAR updated, VSS, will continue to monitor.
--- NOTE | 2022-04-29 07:03 | PC.NURSE ---
patient appears to remain asleep at present respirations are evena dn unlabored patient appears in no distress
--- NOTE | 2022-04-29 08:50 | PC.NURSE ---
left message for daughter timothy in regards to 2 non formulary meds which we dont have, to bring to hospital.
--- NOTE | 2022-04-29 09:39 | PC.NURSE ---
patients daughter returned phone call stated client no longer on gabapentin and since 2 week ago stay at long term client has been getting aptiom 2 times a day 300mg because more was making her too sleepy.
--- NOTE | 2022-04-29 10:43 | PC.NURSE ---
dtr came to visit but due to patients agitation on not being able to leave visit left soon thereafter
[2022-04-29] MEDS: Dicyclomine HCl 10 MG CAPSULE PO ×2 (12:16→22:14)
[2022-04-29] MEDS: cloBAZam 10 MG TABLET PO ×2 (12:16→22:13)
[2022-04-29 12:17] VITALS: BP 116/71; PULSE 74; RESP 16; TEMP 36.3; O2SAT 98
[2022-04-29 12:20] LABS: Appearance Urine CLEAR; Color Urine STRAW; Glucose Urine UA NEG (NEG); Leukocyte Esterase Urine 2+ (NEG); Nitrite Urine NEG (NEG); Urine Blood NEG (NEG); Urine Ketones NEG (NEG); Urine Protein NEG (NEG-TRACE)
[2022-04-29 12:33] LABS: Amphetamine Screen Urine Not Detected (Not Detect); Barbiturates, Urine POSITIVE (Not Detect); Benzodiazepines Screen Urine POSITIVE (Not Detect); Cannabinoid Screen Urine Not Detected (Not Detect); Cocaine Screen Urine Not Detected (Not Detect); Fentanyl, urine Not Detected (Not Detect); Opiate Screen Urine Not Detected (Not Detect); Phencyclidine Screen Urine Not Detected (Not Detect)
[2022-04-29 12:35] LABS: Bacteria Urine TRACE /LPF; RBC Urine 0-2 /HPF (0); Squamous Epithelial Cell Urine 1+ /LPF
[2022-04-29 12:36] LABS: Renal Epithelial Cells Urine TRACE /LPF
[2022-04-29 12:47] LABS: Alanine Aminotransferase 41 U/L (0-31); Albumin Level 4.6 g/dL (3.5-5.0); Alkaline Phosphatase 128 U/L (39-117); Anion Gap 15 (12-20); Aspartate Amino Transferase 23 U/L (5-31); Bilirubin Total 0.4 mg/dL (0.0-1.0); Blood Urea Nitrogen 9 mg/dL (9-16); Calcium 9.6 mg/dL (8.4-10.2); Carbon Dioxide 30 mmol/L (22-29); Chloride 97 mmol/L (96-108); Creatinine Clr Calc Pharmacy 113.3; Estimated Glomerular Filt Rate > 60; Glucose Fasting 86 mg/dL (60-99); Potassium 4.4 mmol/L (3.3-5.1); Sodium 138 mmol/L (135-145); Total Protein 8.4 g/dL (6.5-8.0)
--- NOTE | 2022-04-29 15:27 | PC.NURSE ---
Pt was found to not have changed over in pod clothes. No note from previous staff regarding situation. Pt adamant that she will not tire changer aircraft in to clothing. mutual funds agent notified. Security notified. Pt's then wand-ed for safety by myself and security at bedside. Pt cleared of sharps/weapons.
--- NOTE | 2022-04-29 15:49 | PC.NURSE ---
Pt subsquently informed that while she remained in street clothing movement would be restricted to room only with door shut and staff escort to bathroom using an emergency services professional. pt upset about information provided. Pt then told that clothing would be washed and dried prior to being locked up. Pt willing to take shower and change in to pod uniform.
[2022-04-29] MEDS: traZODone HCL 50 MG TABLET PO (22:13)
[2022-04-30] MEDS: Sucralfate 1 GM TABLET PO (07:17)
[2022-04-30] MEDS: cloBAZam 10 MG TABLET PO ×2 (07:17→19:51)
[2022-04-30] MEDS: Dicyclomine HCl 10 MG CAPSULE PO ×2 (07:17→19:54)
[2022-04-30] MEDS: Magnesium Oxide 400 MG TABLET PO (07:17)
--- NOTE | 2022-04-30 09:36 | PC.NURSE ---
Patient slept through the night, no distress observed/reported, medication compliant, behavior non concerning, Kittitian speaking only, disposition per [facility] is section 12 inpatient bed search, will continue to monitor.
[2022-04-30 14:29] VITALS: BP 100/60; PULSE 79; RESP 16; TEMP 36.6; O2SAT 97
--- NOTE | 2022-04-30 17:58 | PC.NURSE ---
PT HAS REMAINED IN HER ROOM IN [facility] FOR MOST OF THE DAY. CHOSE TO TAKE A SHOWER TODAY, ATE LUNCH, NO COMPLAINTS OFFERED. REMAINS A [facility] BEDSEARCH.
[2022-04-30] MEDS: traZODone HCL 50 MG TABLET PO (19:54)
[2022-04-30 23:55] VITALS: BP 100/62; PULSE 79; RESP 16; TEMP 36.4; O2SAT 94
--- NOTE | 2022-05-01 | ECG_ITS ---
Test Reason : med clearance Blood Pressure : / mmHG Vent. Rate : 071 BPM Atrial Rate : 071 BPM P-R Int : 150 ms QRS Dur : 072 ms QT Int : 366 ms P-R-T Axes : 037 015 031 degrees QTc Int : 397 ms Normal sinus rhythm Normal ECG When compared with ECG of 30-JAN-2022 11:41, No significant change was found Referred By: Eddie Schaeffer Electronically Signed By:JONEL QUINTEROS
--- NOTE | 2022-05-01 06:46 | PC.NURSE ---
Patient slept through the night, no distress observed/reported, medication compliant, behavior non concerning, Belarusian speaking only, disposition per [facility] is section 12 inpatient bed search, no update bed search, will continue to monitor.
--- NOTE | 2022-05-01 07:21 | PC.NURSE ---
patient appears to remain at rest at present respirations are even and unlabored patient appears in no distress
--- NOTE | 2022-05-01 08:45 | PC.NURSE ---
daughter called and wanted to leave number for patients provider from [facility] claus ross [phone]
[2022-05-01 11:54] LABS: COVID-19 Test Negative (Negative)
[2022-05-01 14:41] VITALS: BP 111/75; PULSE 79; RESP 17; TEMP 36.3; O2SAT 94
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
[2022-05-01] MEDS: cloBAZam 10 MG TABLET PO (21:23)
--- NOTE | 2022-05-02 08:50 | PC.NURSE ---
Pt refused labs at 0850 this morning, Dr. Pulido aware
[2022-05-02] MEDS: Dicyclomine HCl 10 MG CAPSULE PO ×2 (10:17→20:53)
[2022-05-02] MEDS: Magnesium Oxide 400 MG TABLET PO (10:17)
[2022-05-02] MEDS: cloBAZam 10 MG TABLET PO ×2 (10:18→20:54)
[2022-05-02] MEDS: Sucralfate 1 GM TABLET PO (10:18)
--- NOTE | 2022-05-02 13:18 | PC.NURSE ---
Pt took AM meds with no issues, but at 1300 when RN offered pt her Bentyl, pt appeared confused and stated (with help of interpreter and translator): It has my name on it but it's not my medication. Pt refused and stated she didn't need it.
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
[2022-05-02 20:53] VITALS: BP 108/58; PULSE 93; RESP 18; TEMP 36.4; O2SAT 97
[2022-05-02] MEDS: traZODone HCL 50 MG TABLET PO ×2 (20:53)
[2022-05-02] MEDS: ARIPiprazole 5 MG TABLET PO (20:53)
[2022-05-03 06:00] VITALS: BP 106/68; PULSE 114; RESP 16; TEMP 36.6; O2SAT 93
[2022-05-03] MEDS: Dicyclomine HCl 10 MG CAPSULE PO ×4 (10:23→21:09)
[2022-05-03] MEDS: Sucralfate 1 GM TABLET PO (10:23)
[2022-05-03] MEDS: Omeprazole 20 MG CAPSULE.DR PO (10:23)
[2022-05-03] MEDS: Magnesium Oxide 400 MG TABLET PO (10:24)
[2022-05-03] MEDS: cloBAZam 10 MG TABLET PO ×2 (10:24→21:10)
[2022-05-03] MEDS: ARIPiprazole 5 MG TABLET PO ×2 (10:24→21:09)
--- NOTE | 2022-05-03 16:37 | HO.PSYCHPN ---
Subjective Subjective Date of Service: 05/03/22 Reason For Visit: psychosis Interim History: seen with palliative care specialist. reports she is eating, sleeping, getting along with others OK for the most part. asks for laxative or stool softener, then states she doesn't want one after all. asks to be able to have more TV channels to watch. asks to have a different roommate. otherwise no requests or complaints for MD. per staff, irritable. difficult to engage. no SI/HI. guarded, flat. sleeping so-so. eating well. Mental Status Exam Mental Status Exam Narrative: She is attentive good eye contact. In hospital attire. comes to interview room with palliative care specialist. No Tics or Tremors. No abnormal involuntary movements. minimally able to meaningful engage in conversation due to paranoia, disorganization (ie, less paranoid and more organized). Non-pressured speech, no prolonged speech latency. Speech is regular rate and rhythm. Affect is full range. mood not assessed. Pt is suspicious, guarded. no SI/SIB/HI/AVH expressed. Thoughts are illogical. Insight/ Judgment is poor. Diagnostics Vital Signs (24Hr): Vital Signs - 24 hr 05/02/22 20:53 05/03/22 06:00 Temperature 97.6 F 97.9 F Pulse Rate 93 114 H Respiratory Rate 18 16 Blood Pressure 108/58 L 106/68 Pulse Oximetry 97 93 Oxygen Delivery Method Room Air Room Air BMI result Body Mass Index 33.9 Labs Results: 04/28/22 22:32 04/29/22 12:09 Medications Medications Current Medications Acetaminophen (Acetaminophen 325 Mg Tablet) 650 mg PO Q6H PRN PRN Reason: Headache/Pain Mild Scale (1-3) Al Hydroxide/Mg Hydroxide (Magnesium Hydrox/Alum Hydrox 30 Ml Oral.Susp) 30 ml PO Q6H PRN PRN Reason: Heartburn/Nausea Aripiprazole (Aripiprazole 5 Mg Tablet) 5 mg PO BID [facility] Last Admin: 05/03/22 10:24 Dose: 5 mg Clobazam (Clobazam 10 Mg Tablet) 10 mg PO BID [facility] Last Admin: 05/03/22 10:24 Dose: 10 mg Dicyclomine HCl (Dicyclomine Hcl 10 Mg Capsule) 10 mg PO QID [facility] Last Admin: 05/03/22 14:17 Dose: 10 mg Hydroxyzine HCl (Hydroxyzine Hcl 25 Mg Tablet) 25 mg PO Q6H PRN PRN Reason: Anxiety Magnesium Hydroxide (Milk Of Magnesia 30 Ml Oral.Susp) 30 ml PO DAILY PRN PRN Reason: Constipation Magnesium Oxide (Magnesium Oxide 400 Mg Tablet) 400 mg PO DAILY [facility] Last Admin: 05/03/22 10:24 Dose: 400 mg Pt Own Med ( Cenobamate [Xcopri] 150 Mg Tablet) 1 tab PO DAILY [facility] Last Admin: 05/03/22 10:33 Dose: 1 tab Pt Own Med ( Eslicarbazepine [ Aptiom] 600 Mg Tablet) 300 mg PO BID [facility]; Protocol Last Admin: 05/03/22 10:33 Dose: 300 mg Olanzapine (Olanzapine 5 Mg Tablet) 5 mg PO Q4H PRN PRN Reason: psychotic Omeprazole (Omeprazole 20 Mg Capsule.Dr) 20 mg PO DAILY@0630 [facility] Last Admin: 05/03/22 10:23 Dose: 20 mg Sucralfate (Sucralfate 1 Gm Tablet) 1 gm PO DAILY [facility] Last Admin: 05/03/22 10:23 Dose: 1 gm Trazodone HCl (Trazodone Hcl 50 Mg Tablet) 50 mg PO BEDTIME PRN PRN Reason: Insomnia Last Admin: 05/02/22 20:53 Dose: 50 mg Trazodone HCl (Trazodone Hcl 50 Mg Tablet) 50 mg PO BEDTIME PRN PRN Reason: Insomnia Last Admin: 05/02/22 20:53 Dose: 50 mg Allergies Allergies Allergy/AdvReac Type Severity Reaction Status Date / Time Iodinated Contrast Media Allergy Intermediate RED ALL Verified 03/01/22 15:06 [IV Dye, Iodine Containing] OVER NAUSEA AND LOST RESPIRATIONS Penicillins [PENICILLINS] Allergy Intermediate Unknown Verified 03/01/22 15:06 phenytoin [From Dilantin] Allergy Intermediate gum Verified 03/01/22 15:06 swelling lamotrigine [From Lamictal] Allergy Unknown unknown Verified 03/01/22 15:06 Assessment & Plan Assessment & Plan (1) Delusional disorder: Status: Acute Code(s): F22 - Delusional disorders (2) Epilepsy: Status: Acute Code(s): G40.909 - Epilepsy, unspecified, not intractable, without status epilepticus Riya Christine is a 56 y.o. Female who has a hx of depression, psychotic agitation, and paranoia in the context of long standing refractory epilepsy. Hx of aphasia. Hx of multiple inpatient admissions for depression, psychotic sx, and paranoia. Pt has been on risperdal since 2018, however recently dose was lowered due to brief invega sustenna trial and risperdal was D.C?d in 01/2022 due to lethargy in the context of polypharm. 05/01: consider trial on abilify or vraylar, as these are less sedating antipsychotics. Will start olanzapine 5 mg QHS PRN for psychosis, agitation. 05/02: Rxed abilify, which pt states she will not take. quite ill: paranoid, delusional, strikingly disorganized and tangential. 05/03: took abilify last night. less disorganized and tangential. continue current regimen. I spent ___35___ minutes with the patient and/or on the patient floor today, greater than?50% of which was spent counseling/coordinating care. Reason for contiued inpatient stay Substantial Risk for: inability to function and rapid decompensation
[2022-05-03 18:00] VITALS: BP 101/64; PULSE 84; RESP 18; TEMP 36.7; O2SAT 99
[2022-05-04] MEDS: Omeprazole 20 MG CAPSULE.DR PO (09:15)
[2022-05-04] MEDS: Dicyclomine HCl 10 MG CAPSULE PO ×4 (09:15→22:56)
[2022-05-04] MEDS: Sucralfate 1 GM TABLET PO (09:16)
[2022-05-04] MEDS: ARIPiprazole 5 MG TABLET PO (09:16)
[2022-05-04] MEDS: Magnesium Oxide 400 MG TABLET PO (09:16)
[2022-05-04] MEDS: cloBAZam 10 MG TABLET PO ×2 (09:16→22:56)
[2022-05-04 09:39] VITALS: BP 125/56; PULSE 78; RESP 16; TEMP 36.6; O2SAT 100; BMI 29.6
--- NOTE | 2022-05-04 14:47 | HO.PSYCHPN ---
Subjective Subjective Date of Service: 05/04/22 Reason For Visit: psychosis Interim History: same presentation as last 2 days. caustic but superficially cooperative and polite. disorganized, paranoid delusions. per staff, withdrawn, upset over missing clothes. eating and sleepin gOK. upset daughter didn't visit. slept well overnight. per collateral from daughter, psychosis only started in [id number] and has gotten progressively worse. Mental Status Exam Mental Status Exam Narrative: She is attentive good eye contact. In hospital attire. comes to interview room with cytologist. No Tics or Tremors. No abnormal involuntary movements. minimally able to meaningful engage in conversation due to paranoia, disorganization. Non-pressured speech, no prolonged speech latency. Speech is regular rate and rhythm. Affect is full range. mood not assessed. Pt is suspicious, guarded. no SI/SIB/HI/AVH expressed. Thoughts are illogical. Insight/ Judgment is poor. Diagnostics Vital Signs (24Hr): Vital Signs - 24 hr 05/03/22 18:00 05/04/22 09:39 Temperature 98.1 F 97.9 F Pulse Rate 84 78 Respiratory Rate 18 16 Blood Pressure 101/64 125/56 L Pulse Oximetry 99 100 Oxygen Delivery Method Room Air Room Air BMI result Body Mass Index 29.6 Labs Results: 04/28/22 22:32 04/29/22 12:09 Medications Medications Current Medications Acetaminophen (Acetaminophen 325 Mg Tablet) 650 mg PO Q6H PRN PRN Reason: Headache/Pain Mild Scale (1-3) Al Hydroxide/Mg Hydroxide (Magnesium Hydrox/Alum Hydrox 30 Ml Oral.Susp) 30 ml PO Q6H PRN PRN Reason: Heartburn/Nausea Aripiprazole (Aripiprazole 10 Mg Tablet) 10 mg PO BID [facility] Clobazam (Clobazam 10 Mg Tablet) 10 mg PO BID [facility] Last Admin: 05/04/22 09:16 Dose: 10 mg Dicyclomine HCl (Dicyclomine Hcl 10 Mg Capsule) 10 mg PO QID [facility] Last Admin: 05/04/22 14:17 Dose: 10 mg Hydroxyzine HCl (Hydroxyzine Hcl 25 Mg Tablet) 25 mg PO Q6H PRN PRN Reason: Anxiety Magnesium Hydroxide (Milk Of Magnesia 30 Ml Oral.Susp) 30 ml PO DAILY PRN PRN Reason: Constipation Magnesium Oxide (Magnesium Oxide 400 Mg Tablet) 400 mg PO DAILY [facility] Last Admin: 05/04/22 09:16 Dose: 400 mg Pt Own Med ( Cenobamate [Xcopri] 150 Mg Tablet) 1 tab PO DAILY [facility] Last Admin: 05/04/22 09:14 Dose: 1 tab Pt Own Med ( Eslicarbazepine [ Aptiom] 600 Mg Tablet) 300 mg PO BID [facility]; Protocol Last Admin: 05/04/22 09:13 Dose: 300 mg Olanzapine (Olanzapine 5 Mg Tablet) 5 mg PO Q4H PRN PRN Reason: psychotic Omeprazole (Omeprazole 20 Mg Capsule.Dr) 20 mg PO DAILY@0630 [facility] Last Admin: 05/04/22 09:15 Dose: 20 mg Sucralfate (Sucralfate 1 Gm Tablet) 1 gm PO DAILY [facility] Last Admin: 05/04/22 09:16 Dose: 1 gm Trazodone HCl (Trazodone Hcl 50 Mg Tablet) 50 mg PO BEDTIME PRN PRN Reason: Insomnia Last Admin: 05/02/22 20:53 Dose: 50 mg Trazodone HCl (Trazodone Hcl 50 Mg Tablet) 50 mg PO BEDTIME PRN PRN Reason: Insomnia Last Admin: 05/02/22 20:53 Dose: 50 mg Allergies Allergies Allergy/AdvReac Type Severity Reaction Status Date / Time Iodinated Contrast Media Allergy Intermediate RED ALL Verified 03/01/22 15:06 [IV Dye, Iodine Containing] OVER NAUSEA AND LOST RESPIRATIONS Penicillins [PENICILLINS] Allergy Intermediate Unknown Verified 03/01/22 15:06 phenytoin [From Dilantin] Allergy Intermediate gum Verified 03/01/22 15:06 swelling lamotrigine [From Lamictal] Allergy Unknown unknown Verified 03/01/22 15:06 Assessment & Plan Assessment & Plan (1) Delusional disorder: Status: Acute Code(s): F22 - Delusional disorders (2) Epilepsy: Status: Acute Code(s): G40.909 - Epilepsy, unspecified, not intractable, without status epilepticus Riya Christine is a 56 y.o. Female who has a hx of depression, psychotic agitation, and paranoia in the context of long standing refractory epilepsy. Hx of aphasia. Hx of multiple inpatient admissions for depression, psychotic sx, and paranoia. Pt has been on risperdal since 2018, however recently dose was lowered due to brief invega sustenna trial and risperdal was D.C?d in 01/2022 due to lethargy in the context of polypharm. 05/01: consider trial on abilify or vraylar, as these are less sedating antipsychotics. Will start olanzapine 5 mg QHS PRN for psychosis, agitation. 05/02: Rxed abilify, which pt states she will not take. quite ill: paranoid, delusional, strikingly disorganized and tangential. 05/03: took abilify last night. less disorganized and tangential. continue current regimen. 05/04: no change in presentation. increase abilify to 10 mg BID. I spent __25____ minutes with the patient and/or on the patient floor today, greater than?50% of which was spent counseling/coordinating care. Reason for contiued inpatient stay Substantial Risk for: harm to others and inability to function
[2022-05-04 19:05] VITALS: BP 120/72; PULSE 91; RESP 16; TEMP 36.6; O2SAT 100
[2022-05-04] MEDS: ARIPiprazole 10 MG TABLET PO (22:56)
[2022-05-05] MEDS: Omeprazole 20 MG CAPSULE.DR PO (09:40)
[2022-05-05] MEDS: ARIPiprazole 10 MG TABLET PO ×2 (09:40→22:21)
[2022-05-05] MEDS: Dicyclomine HCl 10 MG CAPSULE PO ×4 (09:40→22:21)
[2022-05-05] MEDS: Sucralfate 1 GM TABLET PO (09:40)
[2022-05-05] MEDS: cloBAZam 10 MG TABLET PO ×2 (09:40→22:21)
[2022-05-05] MEDS: Magnesium Oxide 400 MG TABLET PO (09:41)
--- NOTE | 2022-05-05 15:57 | HO.PSYCHPN ---
Subjective Subjective Date of Service: 05/05/22 Reason For Visit: psychosis Interim History: seen with real estate investment analyst. caustic, condescending, derisive attitude. states MD is not a real MD bcse he does not know when she is leaving and because real MDs don't work on sunday or sunday (she seems to think it is sunday). c/o not being able to take a shower, educated she is and to pursue with nursing staff. c/o not having full jug of shampoo or blow dryer or curlers, either. per staff, confused, withdrawn. attending to ADLs. denying Sx. isolative. sleeping and eating well. paced the villa [place] 0130 and then slept. Mental Status Exam Mental Status Exam Narrative: She is attentive good eye contact. In hospital attire. comes to interview room with real estate investment analyst. No Tics or Tremors. No abnormal involuntary movements. minimally able to meaningful engage in conversation due to paranoia, disorganization. Non-pressured speech, no prolonged speech latency. Speech is regular rate and rhythm. Affect is full range. mood not assessed. Pt is suspicious, guarded. no SI/SIB/HI/AVH expressed. Thoughts are illogical. Insight/ Judgment is poor. Diagnostics Vital Signs (24Hr): Vital Signs - 24 hr 05/04/22 19:05 Temperature 98 F Pulse Rate 91 Respiratory Rate 16 Blood Pressure 120/72 Pulse Oximetry 100 Oxygen Delivery Method Room Air BMI result Body Mass Index 29.6 Labs Results: 04/28/22 22:32 04/29/22 12:09 Medications Medications Current Medications Acetaminophen (Acetaminophen 325 Mg Tablet) 650 mg PO Q6H PRN PRN Reason: Headache/Pain Mild Scale (1-3) Al Hydroxide/Mg Hydroxide (Magnesium Hydrox/Alum Hydrox 30 Ml Oral.Susp) 30 ml PO Q6H PRN PRN Reason: Heartburn/Nausea Aripiprazole (Aripiprazole 10 Mg Tablet) 10 mg PO BID [facility] Last Admin: 05/05/22 09:40 Dose: 10 mg Clobazam (Clobazam 10 Mg Tablet) 10 mg PO BID [facility] Last Admin: 05/05/22 09:40 Dose: 10 mg Dicyclomine HCl (Dicyclomine Hcl 10 Mg Capsule) 10 mg PO QID [facility] Last Admin: 05/05/22 12:44 Dose: 10 mg Hydroxyzine HCl (Hydroxyzine Hcl 25 Mg Tablet) 25 mg PO Q6H PRN PRN Reason: Anxiety Magnesium Hydroxide (Milk Of Magnesia 30 Ml Oral.Susp) 30 ml PO DAILY PRN PRN Reason: Constipation Magnesium Oxide (Magnesium Oxide 400 Mg Tablet) 400 mg PO DAILY [facility] Last Admin: 05/05/22 09:41 Dose: 400 mg Pt Own Med ( Cenobamate [Xcopri] 150 Mg Tablet) 1 tab PO DAILY [facility] Last Admin: 05/05/22 10:44 Dose: 1 tab Pt Own Med ( Eslicarbazepine [ Aptiom] 600 Mg Tablet) 300 mg PO BID [facility]; Protocol Last Admin: 05/05/22 10:43 Dose: 300 mg Olanzapine (Olanzapine 5 Mg Tablet) 5 mg PO Q4H PRN PRN Reason: psychotic Omeprazole (Omeprazole 20 Mg Capsule.Dr) 20 mg PO DAILY@0630 [facility] Last Admin: 05/05/22 09:40 Dose: 20 mg Sucralfate (Sucralfate 1 Gm Tablet) 1 gm PO DAILY [facility] Last Admin: 05/05/22 09:40 Dose: 1 gm Trazodone HCl (Trazodone Hcl 50 Mg Tablet) 50 mg PO BEDTIME PRN PRN Reason: Insomnia Last Admin: 05/02/22 20:53 Dose: 50 mg Trazodone HCl (Trazodone Hcl 50 Mg Tablet) 50 mg PO BEDTIME PRN PRN Reason: Insomnia Last Admin: 05/02/22 20:53 Dose: 50 mg Allergies Allergies Allergy/AdvReac Type Severity Reaction Status Date / Time Iodinated Contrast Media Allergy Intermediate RED ALL Verified 03/01/22 15:06 [IV Dye, Iodine Containing] OVER NAUSEA AND LOST RESPIRATIONS Penicillins [PENICILLINS] Allergy Intermediate Unknown Verified 03/01/22 15:06 phenytoin [From Dilantin] Allergy Intermediate gum Verified 03/01/22 15:06 swelling lamotrigine [From Lamictal] Allergy Unknown unknown Verified 03/01/22 15:06 Assessment & Plan Assessment & Plan (1) Delusional disorder: Status: Acute Code(s): F22 - Delusional disorders (2) Epilepsy: Status: Acute Code(s): G40.909 - Epilepsy, unspecified, not intractable, without status epilepticus Riya Christine is a 56 y.o. Female who has a hx of depression, psychotic agitation, and paranoia in the context of long standing refractory epilepsy. Hx of aphasia. Hx of multiple inpatient admissions for depression, psychotic sx, and paranoia. Pt has been on risperdal since 2017, however recently dose was lowered due to brief invega sustenna trial and risperdal was D.C?d in 01/2022 due to lethargy in the context of polypharm. 05/01: consider trial on abilify or vraylar, as these are less sedating antipsychotics. Will start olanzapine 5 mg QHS PRN for psychosis, agitation. 05/02: Rxed abilify, which pt states she will not take. quite ill: paranoid, delusional, strikingly disorganized and tangential. 05/03: took abilify last night. less disorganized and tangential. continue current regimen. 05/04: no change in presentation. increase abilify to 10 mg BID. 05/05: no change in presentation, continue current mgmt. I spent __35____ minutes with the patient and/or on the patient floor today, greater than?50% of which was spent counseling/coordinating care. Reason for contiued inpatient stay Substantial Risk for: harm to self, harm to others, inability to function and rapid decompensation
[2022-05-05 22:00] VITALS: BP 112/71; PULSE 103; RESP 16; TEMP 36.3; O2SAT 100
[2022-05-06 08:10] VITALS: BP 118/68; PULSE 96; RESP 16; TEMP 36.6; O2SAT 100
[2022-05-06] MEDS: Sucralfate 1 GM TABLET PO (08:17)
[2022-05-06] MEDS: Dicyclomine HCl 10 MG CAPSULE PO ×4 (08:17→21:24)
[2022-05-06] MEDS: Omeprazole 20 MG CAPSULE.DR PO (08:17)
[2022-05-06] MEDS: cloBAZam 10 MG TABLET PO ×2 (08:17→21:24)
[2022-05-06] MEDS: Magnesium Oxide 400 MG TABLET PO (08:17)
[2022-05-06] MEDS: ARIPiprazole 10 MG TABLET PO ×2 (08:18→21:24)
[2022-05-06] MEDS: Milk of Magnesia 30 ML ORAL.SUSP PO (09:42)
[2022-05-06] MEDS: Docusate Sodium 100 MG CAPSULE PO ×2 (13:40→21:24)
--- NOTE | 2022-05-06 14:38 | HO.PSYCHPN ---
Subjective Subjective Date of Service: 05/06/22 Reason For Visit: psychosis Medical Problems Affecting Mental Status: No Interim History: Has been isolative and withdrawn. ADLs okay. May have some internal preoccupation. Utilized video automotive parts interpreter [id number]. patient was guarded throughout and had difficulty engaging with automotive parts interpreter which appeared more driven by paranoia and mental state. Became angry with automotive parts interpreter and unable to continue with interview. Unable to answer simple questions such as if medications for constipation have been helpful. Stated she had no mental problems and did not need to be in the hospital but would not discuss admission circumstances. Medication Compliance: Yes Side effects from medications: No Attending Groups: No Review of Systems Acute medical concerns: No Review of Systems Review of Systems Yes Unobtainable due to mental status Mental Status Exam Mental Status Exam Narrative: Hospital clothing. Fair self-care. Does appear internally preoccupied and guarded. Some irritability. No evidence of SI or HI. Insight and judgment appear limited Diagnostics Vital Signs (24Hr): Vital Signs - 24 hr 05/05/22 22:00 05/06/22 08:10 Temperature 97.3 F 97.8 F Pulse Rate 103 H 96 Respiratory Rate 16 16 Blood Pressure 112/71 118/68 Pulse Oximetry 100 100 Oxygen Delivery Method Room Air Room Air BMI result Body Mass Index 29.6 Labs Results: 04/28/22 22:32 04/29/22 12:09 Medications Medications Current Medications Acetaminophen (Acetaminophen 325 Mg Tablet) 650 mg PO Q6H PRN PRN Reason: Headache/Pain Mild Scale (1-3) Al Hydroxide/Mg Hydroxide (Magnesium Hydrox/Alum Hydrox 30 Ml Oral.Susp) 30 ml PO Q6H PRN PRN Reason: Heartburn/Nausea Aripiprazole (Aripiprazole 10 Mg Tablet) 10 mg PO BID [facility] Last Admin: 05/06/22 08:18 Dose: 10 mg Clobazam (Clobazam 10 Mg Tablet) 10 mg PO BID [facility] Last Admin: 05/06/22 08:17 Dose: 10 mg Dicyclomine HCl (Dicyclomine Hcl 10 Mg Capsule) 10 mg PO QID [facility] Last Admin: 05/06/22 13:40 Dose: 10 mg Docusate Sodium (Docusate Sodium 100 Mg Capsule) 100 mg PO BID [facility] Last Admin: 05/06/22 13:40 Dose: 100 mg Hydroxyzine HCl (Hydroxyzine Hcl 25 Mg Tablet) 25 mg PO Q6H PRN PRN Reason: Anxiety Magnesium Hydroxide (Milk Of Magnesia 30 Ml Oral.Susp) 30 ml PO DAILY PRN PRN Reason: Constipation Last Admin: 05/06/22 09:42 Dose: 30 ml Magnesium Oxide (Magnesium Oxide 400 Mg Tablet) 400 mg PO DAILY [facility] Last Admin: 05/06/22 08:17 Dose: 400 mg Pt Own Med ( Cenobamate [Xcopri] 150 Mg Tablet) 1 tab PO DAILY [facility] Last Admin: 05/06/22 08:16 Dose: 1 tab Pt Own Med ( Eslicarbazepine [ Aptiom] 600 Mg Tablet) 300 mg PO BID [facility]; Protocol Last Admin: 05/06/22 08:15 Dose: 300 mg Olanzapine (Olanzapine 5 Mg Tablet) 5 mg PO Q4H PRN PRN Reason: psychotic Omeprazole (Omeprazole 20 Mg Capsule.Dr) 20 mg PO DAILY@0630 [facility] Last Admin: 05/06/22 08:17 Dose: 20 mg Senna (Senna [place] Extract Oral Syrup 15 Ml Syrup) 15 ml PO BEDTIME [facility] Sucralfate (Sucralfate 1 Gm Tablet) 1 gm PO DAILY [facility] Last Admin: 05/06/22 08:17 Dose: 1 gm Trazodone HCl (Trazodone Hcl 50 Mg Tablet) 50 mg PO BEDTIME PRN PRN Reason: Insomnia Last Admin: 05/02/22 20:53 Dose: 50 mg Trazodone HCl (Trazodone Hcl 50 Mg Tablet) 50 mg PO BEDTIME PRN PRN Reason: Insomnia Last Admin: 05/02/22 20:53 Dose: 50 mg Allergies Allergies Allergy/AdvReac Type Severity Reaction Status Date / Time Iodinated Contrast Media Allergy Intermediate RED ALL Verified 03/01/22 15:06 [IV Dye, Iodine Containing] OVER NAUSEA AND LOST RESPIRATIONS Penicillins [PENICILLINS] Allergy Intermediate Unknown Verified 03/01/22 15:06 phenytoin [From Dilantin] Allergy Intermediate gum Verified 03/01/22 15:06 swelling lamotrigine [From Lamictal] Allergy Unknown unknown Verified 03/01/22 15:06 Assessment & Plan Assessment & Plan (1) Delusional disorder: Status: Acute Code(s): F22 - Delusional disorders (2) Epilepsy: Status: Acute Code(s): G40.909 - Epilepsy, unspecified, not intractable, without status epilepticus Plan Nanci is a 56 y.o. Female who has a hx of depression, psychotic agitation, and paranoia in the context of long standing refractory epilepsy. Hx of aphasia. Hx of multiple inpatient admissions for depression, psychotic sx, and paranoia. Pt has been on risperdal since 2018, however recently dose was lowered due to brief invega sustenna trial and risperdal was D.C?d in 01/2022 due to lethargy in the context of polypharm. 05/01: consider trial on abilify or vraylar, as these are less sedating antipsychotics. Will start olanzapine 5 mg QHS PRN for psychosis, agitation. 05/02: Rxed abilify, which pt states she will not take. quite ill: paranoid, delusional, strikingly disorganized and tangential. 05/03: took abilify last night. less disorganized and tangential. continue current regimen. 05/04: no change in presentation. increase abilify to 10 mg BID. 05/05: no change in presentation, continue current mgmt. 05/06/2022: No changes to current presentation were treatment. Abilify just increased on 05/04/2022. I spent minutes with the patient and/or on the patient floor today, greater than?50% of which was spent counseling/coordinating care. Reason for contiued inpatient stay Substantial Risk for: inability to function
[2022-05-06 21:20] VITALS: BP 91/57; PULSE 84; RESP 16; TEMP 36.5; O2SAT 100
[2022-05-07] MEDS: cloBAZam 10 MG TABLET PO ×2 (10:10→22:32)
[2022-05-07] MEDS: Dicyclomine HCl 10 MG CAPSULE PO ×4 (10:10→22:32)
[2022-05-07] MEDS: ARIPiprazole 10 MG TABLET PO ×2 (10:10→22:32)
[2022-05-07] MEDS: Omeprazole 20 MG CAPSULE.DR PO (10:10)
[2022-05-07] MEDS: Sucralfate 1 GM TABLET PO (10:11)
[2022-05-07] MEDS: Docusate Sodium 100 MG CAPSULE PO ×2 (10:11→22:33)
[2022-05-07] MEDS: Magnesium Oxide 400 MG TABLET PO (10:11)
--- NOTE | 2022-05-07 12:12 | HO.PSYCHPN ---
Subjective Subjective Date of Service: 05/07/22 Reason For Visit: psychosis Interim History: Internally preoccupied and laughing to self. Utilized video foreign language interpreter [id number]. Paranoid that sports writer was an impersonator. Denied depression, SI, insomnia. No med concerns. Was guarded throughout and laughing to self. Medication Compliance: Yes Side effects from medications: No Attending Groups: No Review of Systems Acute medical concerns: No Review of Systems Review of Systems Yes Unobtainable due to mental status Mental Status Exam Mental Status Exam Narrative: Hospital clothing. Fair self-care. Internally preoccupied and guarded. Paranoid delusions. No evidence of SI or HI. Insight and judgment appear limited Diagnostics Vital Signs (24Hr): Vital Signs - 24 hr 05/06/22 21:20 Temperature 97.7 F Pulse Rate 84 Respiratory Rate 16 Blood Pressure 91/57 L Pulse Oximetry 100 Oxygen Delivery Method Room Air BMI result Body Mass Index 29.6 Labs Results: 04/28/22 22:32 04/29/22 12:09 Medications Medications Current Medications Acetaminophen (Acetaminophen 325 Mg Tablet) 650 mg PO Q6H PRN PRN Reason: Headache/Pain Mild Scale (1-3) Al Hydroxide/Mg Hydroxide (Magnesium Hydrox/Alum Hydrox 30 Ml Oral.Susp) 30 ml PO Q6H PRN PRN Reason: Heartburn/Nausea Aripiprazole (Aripiprazole 10 Mg Tablet) 10 mg PO BID [facility] Last Admin: 05/07/22 10:10 Dose: 10 mg Clobazam (Clobazam 10 Mg Tablet) 10 mg PO BID [facility] Last Admin: 05/07/22 10:10 Dose: 10 mg Dicyclomine HCl (Dicyclomine Hcl 10 Mg Capsule) 10 mg PO QID [facility] Last Admin: 05/07/22 10:10 Dose: 10 mg Docusate Sodium (Docusate Sodium 100 Mg Capsule) 100 mg PO BID [facility] Last Admin: 05/07/22 10:11 Dose: 100 mg Hydroxyzine HCl (Hydroxyzine Hcl 25 Mg Tablet) 25 mg PO Q6H PRN PRN Reason: Anxiety Magnesium Hydroxide (Milk Of Magnesia 30 Ml Oral.Susp) 30 ml PO DAILY PRN PRN Reason: Constipation Last Admin: 05/06/22 09:42 Dose: 30 ml Magnesium Oxide (Magnesium Oxide 400 Mg Tablet) 400 mg PO DAILY [facility] Last Admin: 05/07/22 10:11 Dose: 400 mg Pt Own Med ( Cenobamate [Xcopri] 150 Mg Tablet) 1 tab PO DAILY [facility] Last Admin: 05/07/22 10:12 Dose: 1 tab Pt Own Med ( Eslicarbazepine [ Aptiom] 600 Mg Tablet) 300 mg PO BID [facility]; Protocol Last Admin: 05/07/22 10:13 Dose: 300 mg Olanzapine (Olanzapine 5 Mg Tablet) 5 mg PO Q4H PRN PRN Reason: psychotic Omeprazole (Omeprazole 20 Mg Capsule.Dr) 20 mg PO DAILY@0630 [facility] Last Admin: 05/07/22 10:10 Dose: 20 mg Senna (Senna [place] Extract Oral Syrup 15 Ml Syrup) 15 ml PO BEDTIME [facility] Last Admin: 05/06/22 21:25 Dose: 15 ml Sucralfate (Sucralfate 1 Gm Tablet) 1 gm PO DAILY [facility] Last Admin: 05/07/22 10:11 Dose: 1 gm Trazodone HCl (Trazodone Hcl 50 Mg Tablet) 50 mg PO BEDTIME PRN PRN Reason: Insomnia Last Admin: 05/02/22 20:53 Dose: 50 mg Trazodone HCl (Trazodone Hcl 50 Mg Tablet) 50 mg PO BEDTIME PRN PRN Reason: Insomnia Last Admin: 05/02/22 20:53 Dose: 50 mg Allergies Allergies Allergy/AdvReac Type Severity Reaction Status Date / Time Iodinated Contrast Media Allergy Intermediate RED ALL Verified 03/01/22 15:06 [IV Dye, Iodine Containing] OVER NAUSEA AND LOST RESPIRATIONS Penicillins [PENICILLINS] Allergy Intermediate Unknown Verified 03/01/22 15:06 phenytoin [From Dilantin] Allergy Intermediate gum Verified 03/01/22 15:06 swelling lamotrigine [From Lamictal] Allergy Unknown unknown Verified 03/01/22 15:06 Assessment & Plan Assessment & Plan (1) Delusional disorder: Status: Acute Code(s): F22 - Delusional disorders (2) Epilepsy: Status: Acute Code(s): G40.909 - Epilepsy, unspecified, not intractable, without status epilepticus Riya Christine is a 56 y.o. Female who has a hx of depression, psychotic agitation, and paranoia in the context of long standing refractory epilepsy. Hx of aphasia. Hx of multiple inpatient admissions for depression, psychotic sx, and paranoia. Pt has been on risperdal since 2018, however recently dose was lowered due to brief invega sustenna trial and risperdal was D.C?d in 01/2022 due to lethargy in the context of polypharm. 05/01: consider trial on abilify or vraylar, as these are less sedating antipsychotics. Will start olanzapine 5 mg QHS PRN for psychosis, agitation. 05/02: Rxed abilify, which pt states she will not take. quite ill: paranoid, delusional, strikingly disorganized and tangential. 05/03: took abilify last night. less disorganized and tangential. continue current regimen. 05/04: no change in presentation. increase abilify to 10 mg BID. 05/05: no change in presentation, continue current mgmt. 05/07/2022: No changes to current treatment. Abilify just increased on 05/04/2022. I spent minutes with the patient and/or on the patient floor today, greater than?50% of which was spent counseling/coordinating care. Reason for contiued inpatient stay Substantial Risk for: inability to function
[2022-05-07 22:38] VITALS: BP 123/67; PULSE 74; RESP 16; TEMP 36.6; O2SAT 97
[2022-05-08] MEDS: Sucralfate 1 GM TABLET PO (10:04)
[2022-05-08] MEDS: Dicyclomine HCl 10 MG CAPSULE PO ×4 (10:04→20:57)
[2022-05-08] MEDS: cloBAZam 10 MG TABLET PO ×2 (10:05→20:57)
[2022-05-08] MEDS: Magnesium Oxide 400 MG TABLET PO (10:05)
[2022-05-08] MEDS: Omeprazole 20 MG CAPSULE.DR PO (10:06)
[2022-05-08] MEDS: Docusate Sodium 100 MG CAPSULE PO (10:06)
[2022-05-08] MEDS: ARIPiprazole 10 MG TABLET PO ×2 (10:07→20:57)
--- NOTE | 2022-05-08 10:32 | PC.NURSE ---
Called Nanci's daughter (Hamida), informed her that pt's Xcopri Rx from home has run out & asked if she could bring some in for her dose tomorrow.
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
[2022-05-08 20:55] VITALS: BP 114/62; PULSE 80; RESP 16; TEMP 36.8; O2SAT 99
[2022-05-08] MEDS: Loperamide HCl 2 MG CAPSULE 4 MG PO (20:58)
[2022-05-09 06:00] VITALS: BP 116/59; PULSE 86; RESP 18; TEMP 36.9; O2SAT 98
--- NOTE | 2022-05-09 08:29 | HO.PSYCHPN ---
Subjective Subjective Date of Service: 05/09/22 Reason For Visit: psychosis Subjective Notes: Conditional Voluntary Interim History: Pt continues to report that she thinks her providers are all impostors, not who they say they are. She continues to report paranoia towards neighbors. She denies SI/HI. No insight into psych symptoms. Per nursing, pt has been visible on the unit, no behavioral concerns. 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: No c/o dizziness, headache GI: No c/o Nausea, Vomiting, diarrhea, constipation or heartburn Yes Unobtainable due to mental status Diagnostics Vital Signs (24Hr): Vital Signs - 24 hr 05/09/22 21:46 Temperature 98.3 F Pulse Rate 76 Respiratory Rate 17 Blood Pressure 127/72 Pulse Oximetry 98 Oxygen Delivery Method Room Air BMI result Body Mass Index 29.6 Labs Results: 04/28/22 22:32 04/29/22 12:09 Medications Medications Current Medications Acetaminophen (Acetaminophen 325 Mg Tablet) 650 mg PO Q6H PRN PRN Reason: Headache/Pain Mild Scale (1-3) Al Hydroxide/Mg Hydroxide (Magnesium Hydrox/Alum Hydrox 30 Ml Oral.Susp) 30 ml PO Q6H PRN PRN Reason: Heartburn/Nausea Aripiprazole (Aripiprazole 10 Mg Tablet) 10 mg PO BID [facility] Last Admin: 05/09/22 21:46 Dose: 10 mg Clobazam (Clobazam 10 Mg Tablet) 10 mg PO BID [facility] Last Admin: 05/09/22 21:47 Dose: 10 mg Dicyclomine HCl (Dicyclomine Hcl 10 Mg Capsule) 10 mg PO QID [facility] Last Admin: 05/09/22 21:48 Dose: 10 mg Docusate Sodium (Docusate Sodium 100 Mg Capsule) 100 mg PO BID [facility] Last Admin: 05/09/22 21:47 Dose: 100 mg Hydroxyzine HCl (Hydroxyzine Hcl 25 Mg Tablet) 25 mg PO Q6H PRN PRN Reason: Anxiety Loperamide HCl (Loperamide Hcl 2 Mg Capsule) 2 mg PO Q6H PRN PRN Reason: diarrhea Magnesium Hydroxide (Milk Of Magnesia 30 Ml Oral.Susp) 30 ml PO DAILY PRN PRN Reason: Constipation Last Admin: 05/06/22 09:42 Dose: 30 ml Magnesium Oxide (Magnesium Oxide 400 Mg Tablet) 400 mg PO DAILY [facility] Last Admin: 05/09/22 10:25 Dose: 400 mg Pt Own Med ( Cenobamate [Xcopri] 150 Mg Tablet) 1 tab PO DAILY [facility] Last Admin: 05/09/22 10:37 Dose: 1 tab Pt Own Med ( Eslicarbazepine [ Aptiom] 600 Mg Tablet) 300 mg PO BID [facility]; Protocol Last Admin: 05/09/22 21:46 Dose: 300 mg Olanzapine (Olanzapine 5 Mg Tablet) 5 mg PO Q4H PRN PRN Reason: psychotic Omeprazole (Omeprazole 20 Mg Capsule.Dr) 20 mg PO DAILY@0630 [facility] Last Admin: 05/09/22 10:25 Dose: 20 mg Senna (Senna [place] Extract Oral Syrup 15 Ml Syrup) 15 ml PO BEDTIME [facility] Last Admin: 05/09/22 21:49 Dose: 15 ml Sucralfate (Sucralfate 1 Gm Tablet) 1 gm PO DAILY [facility] Last Admin: 05/09/22 10:25 Dose: 1 gm Trazodone HCl (Trazodone Hcl 50 Mg Tablet) 50 mg PO BEDTIME PRN PRN Reason: Insomnia Last Admin: 05/02/22 20:53 Dose: 50 mg Allergies Allergies Allergy/AdvReac Type Severity Reaction Status Date / Time Iodinated Contrast Media Allergy Intermediate RED ALL Verified 03/01/22 15:06 [IV Dye, Iodine Containing] OVER NAUSEA AND LOST RESPIRATIONS Penicillins [PENICILLINS] Allergy Intermediate Unknown Verified 03/01/22 15:06 phenytoin [From Dilantin] Allergy Intermediate gum Verified 03/01/22 15:06 swelling lamotrigine [From Lamictal] Allergy Unknown unknown Verified 03/01/22 15:06 Assessment & Plan Assessment & Plan (1) Delusional disorder: Status: Acute Code(s): F22 - Delusional disorders (2) Epilepsy: Status: Acute Code(s): G40.909 - Epilepsy, unspecified, not intractable, without status epilepticus Riya Christine is a 56 y.o. Female who has a hx of depression, psychotic agitation, and paranoia in the context of long standing refractory epilepsy. Hx of aphasia. Hx of multiple inpatient admissions for depression, psychotic sx, and paranoia. Pt has been on risperdal since 2018, however recently dose was lowered due to brief invega sustenna trial and risperdal was D.C?d in 01/2022 due to lethargy in the context of polypharm. 05/01: consider trial on abilify or vraylar, as these are less sedating antipsychotics. Will start olanzapine 5 mg QHS PRN for psychosis, agitation. 05/02: Rxed abilify, which pt states she will not take. quite ill: paranoid, delusional, strikingly disorganized and tangential. 05/03: took abilify last night. less disorganized and tangential. continue current regimen. 05/04: no change in presentation. increase abilify to 10 mg BID. 05/05: no change in presentation, continue current mgmt. 05/07/2022: No changes to current treatment. Abilify just increased on 05/04/2022. 05/08- continue current medications. 05/09 continue current medications- pt continues to present with paranoia and capgras delusions. I spent minutes with the patient and/or on the patient floor today, greater than?50% of which was spent counseling/coordinating care. Reason for contiued inpatient stay Substantial Risk for: inability to function
[2022-05-09] MEDS: cloBAZam 10 MG TABLET PO ×2 (10:25→21:47)
[2022-05-09] MEDS: Omeprazole 20 MG CAPSULE.DR PO (10:25)
[2022-05-09] MEDS: Magnesium Oxide 400 MG TABLET PO (10:25)
[2022-05-09] MEDS: Sucralfate 1 GM TABLET PO (10:25)
[2022-05-09] MEDS: Docusate Sodium 100 MG CAPSULE PO ×2 (10:25→21:47)
[2022-05-09] MEDS: ARIPiprazole 10 MG TABLET PO ×2 (10:25→21:46)
[2022-05-09] MEDS: Dicyclomine HCl 10 MG CAPSULE PO ×4 (10:25→21:48)
[2022-05-09 21:46] VITALS: BP 127/72; PULSE 76; RESP 17; TEMP 36.8; O2SAT 98
[2022-05-10] MEDS: Omeprazole 20 MG CAPSULE.DR PO (09:51)
[2022-05-10] MEDS: Dicyclomine HCl 10 MG CAPSULE PO ×4 (09:51→21:08)
[2022-05-10] MEDS: ARIPiprazole 10 MG TABLET PO ×2 (09:51→21:08)
[2022-05-10] MEDS: cloBAZam 10 MG TABLET PO ×2 (09:51→21:08)
[2022-05-10] MEDS: Docusate Sodium 100 MG CAPSULE PO (09:51)
[2022-05-10] MEDS: Magnesium Oxide 400 MG TABLET PO (09:51)
[2022-05-10] MEDS: Sucralfate 1 GM TABLET PO (09:51)
[2022-05-10 11:50] VITALS: BP 108/60; PULSE 96; RESP 14; TEMP 36.6; O2SAT 99
--- NOTE | 2022-05-10 12:15 | HO.PSYCHPN ---
Subjective Subjective Date of Service: 05/10/22 Reason For Visit: psychosis Subjective Notes: Conditional Voluntary Interim History: Pt continues to report that she thinks her providers are all impostors. She also reports that medications that are being given to her and not the right ones, that she is mistakenly getting other pt's medications. She continues to report paranoia towards neighbors. She denies SI/HI. No insight into psych symptoms. Per nursing, pt has been visible on the unit, no behavioral concerns. 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 c/o dizziness, headache GI: No c/o Nausea, Vomiting, diarrhea, constipation or heartburn Yes Unobtainable due to mental status Diagnostics Vital Signs (24Hr): Vital Signs - 24 hr 05/09/22 21:46 05/10/22 11:50 Temperature 98.3 F 97.8 F Pulse Rate 76 96 Respiratory Rate 17 14 Blood Pressure 127/72 108/60 Pulse Oximetry 98 99 Oxygen Delivery Method Room Air Room Air BMI result Body Mass Index 29.6 Labs Results: 04/28/22 22:32 04/29/22 12:09 Medications Medications Current Medications Acetaminophen (Acetaminophen 325 Mg Tablet) 650 mg PO Q6H PRN PRN Reason: Headache/Pain Mild Scale (1-3) Al Hydroxide/Mg Hydroxide (Magnesium Hydrox/Alum Hydrox 30 Ml Oral.Susp) 30 ml PO Q6H PRN PRN Reason: Heartburn/Nausea Aripiprazole (Aripiprazole 30 Mg Tablet) 30 mg PO DAILY [facility] Clobazam (Clobazam 10 Mg Tablet) 10 mg PO BID [facility] Last Admin: 05/10/22 09:51 Dose: 10 mg Dicyclomine HCl (Dicyclomine Hcl 10 Mg Capsule) 10 mg PO QID [facility] Last Admin: 05/10/22 13:29 Dose: 10 mg Docusate Sodium (Docusate Sodium 100 Mg Capsule) 100 mg PO BID [facility] Last Admin: 05/10/22 09:51 Dose: 100 mg Hydroxyzine HCl (Hydroxyzine Hcl 25 Mg Tablet) 25 mg PO Q6H PRN PRN Reason: Anxiety Loperamide HCl (Loperamide Hcl 2 Mg Capsule) 2 mg PO Q6H PRN PRN Reason: diarrhea Magnesium Hydroxide (Milk Of Magnesia 30 Ml Oral.Susp) 30 ml PO DAILY PRN PRN Reason: Constipation Last Admin: 05/06/22 09:42 Dose: 30 ml Magnesium Oxide (Magnesium Oxide 400 Mg Tablet) 400 mg PO DAILY [facility] Last Admin: 05/10/22 09:51 Dose: 400 mg Pt Own Med ( Cenobamate [Xcopri] 150 Mg Tablet) 1 tab PO DAILY [facility] Last Admin: 05/10/22 09:50 Dose: 1 tab Pt Own Med ( Eslicarbazepine [ Aptiom] 600 Mg Tablet) 300 mg PO BID [facility]; Protocol Last Admin: 05/10/22 09:51 Dose: 300 mg Olanzapine (Olanzapine 5 Mg Tablet) 5 mg PO Q4H PRN PRN Reason: psychotic Omeprazole (Omeprazole 20 Mg Capsule.Dr) 20 mg PO DAILY@0630 [facility] Last Admin: 05/10/22 09:51 Dose: 20 mg Senna (Senna [place] Extract Oral Syrup 15 Ml Syrup) 15 ml PO BEDTIME [facility] Last Admin: 05/09/22 21:49 Dose: 15 ml Sucralfate (Sucralfate 1 Gm Tablet) 1 gm PO DAILY [facility] Last Admin: 05/10/22 09:51 Dose: 1 gm Trazodone HCl (Trazodone Hcl 50 Mg Tablet) 50 mg PO BEDTIME PRN PRN Reason: Insomnia Last Admin: 05/02/22 20:53 Dose: 50 mg Allergies Allergies Allergy/AdvReac Type Severity Reaction Status Date / Time Iodinated Contrast Media Allergy Intermediate RED ALL Verified 03/01/22 15:06 [IV Dye, Iodine Containing] OVER NAUSEA AND LOST RESPIRATIONS Penicillins [PENICILLINS] Allergy Intermediate Unknown Verified 03/01/22 15:06 phenytoin [From Dilantin] Allergy Intermediate gum Verified 03/01/22 15:06 swelling lamotrigine [From Lamictal] Allergy Unknown unknown Verified 03/01/22 15:06 Assessment & Plan Assessment & Plan (1) Delusional disorder: Status: Acute Code(s): F22 - Delusional disorders (2) Epilepsy: Status: Acute Code(s): G40.909 - Epilepsy, unspecified, not intractable, without status epilepticus Riya Christine is a 56 y.o. Female who has a hx of depression, psychotic agitation, and paranoia in the context of long standing refractory epilepsy. Hx of aphasia. Hx of multiple inpatient admissions for depression, psychotic sx, and paranoia. Pt has been on risperdal since 2018, however recently dose was lowered due to brief invega sustenna trial and risperdal was D.C?d in 01/2022 due to lethargy in the context of polypharm. 05/01: consider trial on abilify or vraylar, as these are less sedating antipsychotics. Will start olanzapine 5 mg QHS PRN for psychosis, agitation. 05/02: Rxed abilify, which pt states she will not take. quite ill: paranoid, delusional, strikingly disorganized and tangential. 05/03: took abilify last night. less disorganized and tangential. continue current regimen. 05/04: no change in presentation. increase abilify to 10 mg BID. 05/05: no change in presentation, continue current mgmt. 05/07/2022: No changes to current treatment. Abilify just increased on 05/04/2022. 05/08- continue current medications. 05/09 continue current medications- pt continues to present with paranoia and capgras delusions. 05/10 increase abilify to 30mg po daily- will do once daily dosing, especially as she may decline night time medications. I spent minutes with the patient and/or on the patient floor today, greater than?50% of which was spent counseling/coordinating care. Reason for contiued inpatient stay Substantial Risk for: inability to function
--- NOTE | 2022-05-10 15:56 | PC.NURSE ---
Patient was seen sitting on the floor next to her chair in her room by clinician walking by. Patient was in the process off getting up and onto her bed. This clinician notified RN and patient was then assessed. Patient's VSS, BP 112/59- P 93 Patient was A&O, had no visible injuries and denied having injury. Patient refused a complete skin assessment, but denied injury. When pt was asked to describe fall, she said, I don't remember, I had a seizure. MD notified and patient placed on increased safety checks. Patient hd full ROM in all extremities.
[2022-05-10 18:20] VITALS: BP 144/70; PULSE 102; RESP 6; TEMP 36.7; O2SAT 98
--- NOTE | 2022-05-10 19:03 | PC.NURSE ---
On 05/10/22 at approximately 1818, pt was observed lying on the floor with a pillow beside her head and her feet elevated on the chair with her hands tremulous and appearing to be chewing food. Her dinner was on the table in the room. With assistance of Chadian speaking staff, client was assessed. Pt appears INAD, VS 98.1, 102, 16, 144/70, 98%. PERRLA, packing clerk strength equal bilaterally, muscle strength in arms and legs equal bilaterally. Pt did not provide clear answers when asked what made her lie on the floor, only saying she did not feel well. Pt denied headache, dizziness, lightheadedness or an aura prior to or following lying on the floor. Pt stated she was sore from falling earlier on this date, c/o lower back pain but declined offer for PRN medication for pain. Large area of mottled looking skin observed in lower right back where pt was pointing to area of pain. Pt is on 5-minute checks and was instructed to call for help if she felt warning signs of seizure, dizziness, lightheadedness. She verbalized understanding. Pt stated she wanted to get up to brush her teeth but was encouraged to lie down and rest. She agreed. Will continue to monitor.
[2022-05-11 07:00] VITALS: BMI 29.9
[2022-05-11 09:00] VITALS: BP 112/81; PULSE 104; RESP 18; TEMP 36.8; O2SAT 96
[2022-05-11] MEDS: Sucralfate 1 GM TABLET PO (09:13)
[2022-05-11] MEDS: Dicyclomine HCl 10 MG CAPSULE PO ×4 (09:13→20:47)
[2022-05-11] MEDS: Omeprazole 20 MG CAPSULE.DR PO (09:13)
[2022-05-11] MEDS: Magnesium Oxide 400 MG TABLET PO (09:13)
[2022-05-11] MEDS: ARIPiprazole 30 MG TABLET PO (09:13)
[2022-05-11] MEDS: Docusate Sodium 100 MG CAPSULE PO ×2 (09:13→20:48)
[2022-05-11] MEDS: cloBAZam 10 MG TABLET PO ×2 (09:13→20:48)
--- NOTE | 2022-05-11 12:33 | P.PNPSI_ITS ---
Subjective Subjective Date of Service: 05/11/22 Reason For Visit: psychosis Subjective Notes: Conditional Voluntary Interim History: Pt now on 1:1 due to frequent falls s/s to seizure d/o. Pt continues to present with cap gras delusions- others are impostors, paranoid delusions. Pt reports a male came last night cut her hair- she reports this male was paid to do so. Pt also thinks she is being given the wrong medications. She denies SI/HI. Suspect underlying cog impairments. 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 c/o dizziness, headache GI: No c/o Nausea, Vomiting, diarrhea, constipation or heartburn Yes Unobtainable due to mental status Diagnostics Vital Signs (24Hr): Vital Signs - 24 hr 05/11/22 09:00 05/11/22 18:00 Temperature 98.3 F 97.9 F Pulse Rate 104 H 85 Respiratory Rate 18 18 Blood Pressure 112/81 114/61 Pulse Oximetry 96 100 Oxygen Delivery Method Room Air BMI result Body Mass Index 29.9 Labs Results: 04/28/22 22:32 04/29/22 12:09 Medications Medications Current Medications Acetaminophen (Acetaminophen 325 Mg Tablet) 650 mg PO Q6H PRN PRN Reason: Headache/Pain Mild Scale (1-3) Al Hydroxide/Mg Hydroxide (Magnesium Hydrox/Alum Hydrox 30 Ml Oral.Susp) 30 ml PO Q6H PRN PRN Reason: Heartburn/Nausea Aripiprazole (Aripiprazole 30 Mg Tablet) 30 mg PO DAILY [facility] Last Admin: 05/11/22 09:13 Dose: 30 mg Clobazam (Clobazam 10 Mg Tablet) 10 mg PO BID [facility] Last Admin: 05/11/22 20:48 Dose: 10 mg Dicyclomine HCl (Dicyclomine Hcl 10 Mg Capsule) 10 mg PO QID [facility] Last Admin: 05/11/22 20:47 Dose: 10 mg Docusate Sodium (Docusate Sodium 100 Mg Capsule) 100 mg PO BID [facility] Last Admin: 05/11/22 20:48 Dose: 100 mg Hydroxyzine HCl (Hydroxyzine Hcl 25 Mg Tablet) 25 mg PO Q6H PRN PRN Reason: Anxiety Last Admin: 05/11/22 16:43 Dose: 25 mg Loperamide HCl (Loperamide Hcl 2 Mg Capsule) 2 mg PO Q6H PRN PRN Reason: diarrhea Last Admin: 05/11/22 16:42 Dose: 2 mg Magnesium Hydroxide (Milk Of Magnesia 30 Ml Oral.Susp) 30 ml PO DAILY PRN PRN Reason: Constipation Last Admin: 05/06/22 09:42 Dose: 30 ml Magnesium Oxide (Magnesium Oxide 400 Mg Tablet) 400 mg PO DAILY [facility] Last Admin: 05/11/22 09:13 Dose: 400 mg Pt Own Med ( Cenobamate [Xcopri] 150 Mg Tablet) 1 tab PO DAILY [facility] Last Admin: 05/11/22 09:17 Dose: 1 tab Pt Own Med ( Eslicarbazepine [ Aptiom] 600 Mg Tablet) 300 mg PO BID [facility]; Protocol Last Admin: 05/11/22 20:47 Dose: 300 mg Olanzapine (Olanzapine 5 Mg Tablet) 5 mg PO Q4H PRN PRN Reason: psychotic Omeprazole (Omeprazole 20 Mg Capsule.Dr) 20 mg PO DAILY@0630 [facility] Last Admin: 05/11/22 09:13 Dose: 20 mg Senna (Senna [place] Extract Oral Syrup 15 Ml Syrup) 15 ml PO BEDTIME [facility] Last Admin: 05/11/22 20:49 Dose: Not Given Sucralfate (Sucralfate 1 Gm Tablet) 1 gm PO DAILY [facility] Last Admin: 05/11/22 09:13 Dose: 1 gm Trazodone HCl (Trazodone Hcl 50 Mg Tablet) 50 mg PO BEDTIME PRN PRN Reason: Insomnia Last Admin: 05/02/22 20:53 Dose: 50 mg Allergies Allergies Allergy/AdvReac Type Severity Reaction Status Date / Time Iodinated Contrast Media Allergy Intermediate RED ALL Verified 03/01/22 15:06 [IV Dye, Iodine Containing] OVER NAUSEA AND LOST RESPIRATIONS Penicillins [PENICILLINS] Allergy Intermediate Unknown Verified 03/01/22 15:06 phenytoin [From Dilantin] Allergy Intermediate gum Verified 03/01/22 15:06 swelling lamotrigine [From Lamictal] Allergy Unknown unknown Verified 03/01/22 15:06 Assessment & Plan Assessment & Plan (1) Delusional disorder: Status: Acute Code(s): F22 - Delusional disorders (2) Epilepsy: Status: Acute Code(s): G40.909 - Epilepsy, unspecified, not intractable, without status epilepticus Plan Nanci is a 56 y.o. Female who has a hx of depression, psychotic agitation, and paranoia in the context of long standing refractory epilepsy. Hx of aphasia. Hx of multiple inpatient admissions for depression, psychotic sx, and paranoia. Pt has been on risperdal since 2018, however recently dose was lowered due to brief invega sustenna trial and risperdal was D.C?d in 01/2022 due to lethargy in the context of polypharm. 05/01: consider trial on abilify or vraylar, as these are less sedating antipsychotics. Will start olanzapine 5 mg QHS PRN for psychosis, agitation. 05/02: Rxed abilify, which pt states she will not take. quite ill: paranoid, delusional, strikingly disorganized and tangential. 05/03: took abilify last night. less disorganized and tangential. continue current regimen. 05/04: no change in presentation. increase abilify to 10 mg BID. 05/05: no change in presentation, continue current mgmt. 05/07/2022: No changes to current treatment. Abilify just increased on 05/04/2022. 05/08- continue current medications. 05/09 continue current medications- pt continues to present with paranoia and capgras delusions. 05/10 increase abilify to 30mg po daily- will do once daily dosing, especially as she may decline night time medications. 05/11 collateral info gathered from daughter who reports delusions in past 4 year- not uncommon with severe types of seizures, especially capgras type delusions. Medications may not be as effective, also considering extend of brain atrophy. pending collateral information from OP psychiatrist. I spent __25____ minutes with the patient and/or on the patient floor today, greater than?50% of which was spent counseling/coordinating care. Reason for contiued inpatient stay Substantial Risk for: inability to function
[2022-05-11] MEDS: Loperamide HCl 2 MG CAPSULE PO (16:42)
[2022-05-11] MEDS: hydrOXYzine HCL 25 MG TABLET PO (16:43)
[2022-05-11 18:00] VITALS: BP 114/61; PULSE 85; RESP 18; TEMP 36.6; O2SAT 100
[2022-05-12 09:40] VITALS: BP 130/68; PULSE 84; RESP 16; TEMP 36.3; O2SAT 100
[2022-05-12] MEDS: Dicyclomine HCl 10 MG CAPSULE PO ×4 (09:43→21:56)
[2022-05-12] MEDS: Docusate Sodium 100 MG CAPSULE PO (09:43)
[2022-05-12] MEDS: cloBAZam 10 MG TABLET PO ×2 (09:43→21:56)
[2022-05-12] MEDS: ARIPiprazole 30 MG TABLET PO (09:44)
[2022-05-12] MEDS: Magnesium Oxide 400 MG TABLET PO (09:44)
[2022-05-12] MEDS: Sucralfate 1 GM TABLET PO (09:44)
[2022-05-12] MEDS: Omeprazole 20 MG CAPSULE.DR PO (09:45)
--- NOTE | 2022-05-12 12:54 | HO.PSYCHPN ---
Subjective Subjective Date of Service: 05/12/22 Reason For Visit: psychosis Subjective Notes: Conditional Voluntary Interim History: Pt now on 1:1 due to frequent falls s/s to seizure d/o. Pt continues to report that she is thinks she is being given other pts medications. She continues to report paranoia towards neighbors, does not trust providers thinks they are impostors. She denies SI/HI. She is taking medications with much encouragement. 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 Fair self-care. Internally preoccupied and guarded. Paranoid delusions. No evidence of SI or HI. Insight and judgment appear limited Diagnostics Vital Signs (24Hr): Vital Signs - 24 hr 05/11/22 18:00 05/12/22 09:40 Temperature 97.9 F 97.4 F Pulse Rate 85 84 Respiratory Rate 18 16 Blood Pressure 114/61 130/68 Pulse Oximetry 100 100 Oxygen Delivery Method Room Air BMI result Body Mass Index 29.9 Labs Results: 04/28/22 22:32 04/29/22 12:09 Medications Medications Current Medications Acetaminophen (Acetaminophen 325 Mg Tablet) 650 mg PO Q6H PRN PRN Reason: Headache/Pain Mild Scale (1-3) Al Hydroxide/Mg Hydroxide (Magnesium Hydrox/Alum Hydrox 30 Ml Oral.Susp) 30 ml PO Q6H PRN PRN Reason: Heartburn/Nausea Aripiprazole (Aripiprazole 30 Mg Tablet) 30 mg PO DAILY [facility] Last Admin: 05/12/22 09:44 Dose: 30 mg Clobazam (Clobazam 10 Mg Tablet) 10 mg PO BID [facility] Last Admin: 05/12/22 09:43 Dose: 10 mg Dicyclomine HCl (Dicyclomine Hcl 10 Mg Capsule) 10 mg PO QID [facility] Last Admin: 05/12/22 13:06 Dose: 10 mg Docusate Sodium (Docusate Sodium 100 Mg Capsule) 100 mg PO BID [facility] Last Admin: 05/12/22 09:43 Dose: 100 mg Hydroxyzine HCl (Hydroxyzine Hcl 25 Mg Tablet) 25 mg PO Q6H PRN PRN Reason: Anxiety Last Admin: 05/11/22 16:43 Dose: 25 mg Loperamide HCl (Loperamide Hcl 2 Mg Capsule) 2 mg PO Q6H PRN PRN Reason: diarrhea Last Admin: 05/11/22 16:42 Dose: 2 mg Magnesium Hydroxide (Milk Of Magnesia 30 Ml Oral.Susp) 30 ml PO DAILY PRN PRN Reason: Constipation Last Admin: 05/06/22 09:42 Dose: 30 ml Magnesium Oxide (Magnesium Oxide 400 Mg Tablet) 400 mg PO DAILY [facility] Last Admin: 05/12/22 09:44 Dose: 400 mg Pt Own Med ( Cenobamate [Xcopri] 150 Mg Tablet) 1 tab PO DAILY [facility] Last Admin: 05/12/22 09:44 Dose: 1 tab Pt Own Med ( Eslicarbazepine [ Aptiom] 600 Mg Tablet) 300 mg PO BID [facility]; Protocol Last Admin: 05/12/22 09:44 Dose: 300 mg Olanzapine (Olanzapine 5 Mg Tablet) 5 mg PO Q4H PRN PRN Reason: psychotic Omeprazole (Omeprazole 20 Mg Capsule.Dr) 20 mg PO DAILY@0630 [facility] Last Admin: 05/12/22 09:45 Dose: 20 mg Senna (Senna [place] Extract Oral Syrup 15 Ml Syrup) 15 ml PO BEDTIME [facility] Last Admin: 05/11/22 20:49 Dose: Not Given Sucralfate (Sucralfate 1 Gm Tablet) 1 gm PO DAILY [facility] Last Admin: 05/12/22 09:44 Dose: 1 gm Trazodone HCl (Trazodone Hcl 50 Mg Tablet) 50 mg PO BEDTIME PRN PRN Reason: Insomnia Last Admin: 05/02/22 20:53 Dose: 50 mg Allergies Allergies Allergy/AdvReac Type Severity Reaction Status Date / Time Iodinated Contrast Media Allergy Intermediate RED ALL Verified 03/01/22 15:06 [IV Dye, Iodine Containing] OVER NAUSEA AND LOST RESPIRATIONS Penicillins [PENICILLINS] Allergy Intermediate Unknown Verified 03/01/22 15:06 phenytoin [From Dilantin] Allergy Intermediate gum Verified 03/01/22 15:06 swelling lamotrigine [From Lamictal] Allergy Unknown unknown Verified 03/01/22 15:06 Assessment & Plan Assessment & Plan (1) Delusional disorder: Status: Acute Code(s): F22 - Delusional disorders (2) Epilepsy: Status: Acute Code(s): G40.909 - Epilepsy, unspecified, not intractable, without status epilepticus Riya Christine is a 56 y.o. Female who has a hx of depression, psychotic agitation, and paranoia in the context of long standing refractory epilepsy. Hx of aphasia. Hx of multiple inpatient admissions for depression, psychotic sx, and paranoia. Pt has been on risperdal since 2018, however recently dose was lowered due to brief invega sustenna trial and risperdal was D.C?d in 01/2022 due to lethargy in the context of polypharm. 05/01: consider trial on abilify or vraylar, as these are less sedating antipsychotics. Will start olanzapine 5 mg QHS PRN for psychosis, agitation. 05/02: Rxed abilify, which pt states she will not take. quite ill: paranoid, delusional, strikingly disorganized and tangential. 05/03: took abilify last night. less disorganized and tangential. continue current regimen. 05/04: no change in presentation. increase abilify to 10 mg BID. 05/05: no change in presentation, continue current mgmt. 05/07/2022: No changes to current treatment. Abilify just increased on 05/04/2022. 05/08- continue current medications. 05/09 continue current medications- pt continues to present with paranoia and capgras delusions. 05/10 increase abilify to 30mg po daily- will do once daily dosing, especially as she may decline night time medications. 05/11 collateral info gathered from daughter who reports delusions in past 4 year- not uncommon with severe types of seizures, especially capgras type delusions. Medications may not be as effective, also considering extend of brain atrophy. pending collateral information from OP psychiatrist. 05/12 continue current medications. I spent minutes with the patient and/or on the patient floor today, greater than?50% of which was spent counseling/coordinating care. Reason for contiued inpatient stay Substantial Risk for: inability to function
--- NOTE | 2022-05-12 18:21 | PC.NURSE ---
Around 1719 pt's 1:1 called for help d/t pt having a possible seizure. When this RN went to assess, pt's 1:1 had lowered her to the ground and she was sitting up. 1:1 stated seizure consisted of her upper extremities shaking for 1-2 seconds. Pt did not hit her head but did complain of pain in her left leg but denied treatment. Pt currently laying down in bed.
[2022-05-12 20:33] VITALS: BP 101/58; PULSE 81; RESP 16; TEMP 36.6; O2SAT 97
[2022-05-12] MEDS: Acetaminophen 325 MG TABLET 650 MG PO (23:36)
[2022-05-13] MEDS: Omeprazole 20 MG CAPSULE.DR PO (07:39)
[2022-05-13 09:10] VITALS: BP 124/76; PULSE 86; RESP 20; TEMP 36.7; O2SAT 99
--- NOTE | 2022-05-13 09:10 | P.PNPSI_ITS ---
Subjective Subjective Date of Service: 05/13/22 Reason For Visit: psychosis Subjective Notes: Payan Warning Interim History: I spoke with pt's team and evaluated pt today with hot wound spring production supervisor. Pt had two falls so far due to seizure, no head injury, normal ROM, fell forward. Ordered ativan 0.5 mg PRN as prophylaxis. Pt says she knows she is in hospital, but doesnt know date, thinks its 1993. Pt is quite confused, disorganized, says that the hospital is taking videos of people when they are showering, that somebody shaves the private parts of the patients here. Pt refused to talk with T/W, says she doesnt believe t/w is a provider. Says T/W is intoxicating her family and her and her grandkids with orange juice. Pt is laughing incongruently. Says sleep is good. Remains on 1:1 due to fall risk. Medication Compliance: Yes Side effects from medications: No Attending Groups: No Review of Systems Acute medical concerns: No Medical Review of Systems: unchanged Mental Status Exam Mental Status Exam Narrative: Casual clothing.? Fair self-care.? Internally preoccupied and guarded.? Paranoid delusions.? No evidence of SI or HI.? Insight and judgment appear limited Diagnostics Vital Signs (24Hr): Vital Signs - 24 hr 05/12/22 09:40 05/12/22 20:33 Temperature 97.4 F 97.8 F Pulse Rate 84 81 Respiratory Rate 16 16 Blood Pressure 130/68 101/58 L Pulse Oximetry 100 97 Oxygen Delivery Method Room Air Room Air BMI result Body Mass Index 29.9 Labs Results: 04/28/22 22:32 04/29/22 12:09 Medications Medications Current Medications Acetaminophen (Acetaminophen 325 Mg Tablet) 650 mg PO Q6H PRN PRN Reason: Headache/Pain Mild Scale (1-3) Last Admin: 05/12/22 23:36 Dose: 650 mg Al Hydroxide/Mg Hydroxide (Magnesium Hydrox/Alum Hydrox 30 Ml Oral.Susp) 30 ml PO Q6H PRN PRN Reason: Heartburn/Nausea Aripiprazole (Aripiprazole 30 Mg Tablet) 30 mg PO DAILY [facility] Last Admin: 05/12/22 09:44 Dose: 30 mg Clobazam (Clobazam 10 Mg Tablet) 10 mg PO BID [facility] Last Admin: 05/12/22 21:56 Dose: 10 mg Dicyclomine HCl (Dicyclomine Hcl 10 Mg Capsule) 10 mg PO QID [facility] Last Admin: 05/12/22 21:56 Dose: 10 mg Docusate Sodium (Docusate Sodium 100 Mg Capsule) 100 mg PO BID [facility] Last Admin: 05/12/22 21:56 Dose: Not Given Hydroxyzine HCl (Hydroxyzine Hcl 25 Mg Tablet) 25 mg PO Q6H PRN PRN Reason: Anxiety Last Admin: 05/11/22 16:43 Dose: 25 mg Loperamide HCl (Loperamide Hcl 2 Mg Capsule) 2 mg PO Q6H PRN PRN Reason: diarrhea Last Admin: 05/11/22 16:42 Dose: 2 mg Magnesium Hydroxide (Milk Of Magnesia 30 Ml Oral.Susp) 30 ml PO DAILY PRN PRN Reason: Constipation Last Admin: 05/06/22 09:42 Dose: 30 ml Magnesium Oxide (Magnesium Oxide 400 Mg Tablet) 400 mg PO DAILY [facility] Last Admin: 05/12/22 09:44 Dose: 400 mg Pt Own Med ( Cenobamate [Xcopri] 150 Mg Tablet) 1 tab PO DAILY [facility] Last Admin: 05/12/22 09:44 Dose: 1 tab Pt Own Med ( Eslicarbazepine [ Aptiom] 600 Mg Tablet) 300 mg PO BID [facility]; Protocol Last Admin: 05/12/22 21:56 Dose: 300 mg Olanzapine (Olanzapine 5 Mg Tablet) 5 mg PO Q4H PRN PRN Reason: psychotic Omeprazole (Omeprazole 20 Mg Capsule.Dr) 20 mg PO DAILY@0630 [facility] Last Admin: 05/13/22 07:39 Dose: 20 mg Senna (Senna [place] Extract Oral Syrup 15 Ml Syrup) 15 ml PO BEDTIME [facility] Last Admin: 05/12/22 21:56 Dose: Not Given Sucralfate (Sucralfate 1 Gm Tablet) 1 gm PO DAILY [facility] Last Admin: 05/12/22 09:44 Dose: 1 gm Trazodone HCl (Trazodone Hcl 50 Mg Tablet) 50 mg PO BEDTIME PRN PRN Reason: Insomnia Last Admin: 05/02/22 20:53 Dose: 50 mg Allergies Allergies Allergy/AdvReac Type Severity Reaction Status Date / Time Iodinated Contrast Media Allergy Intermediate RED ALL Verified 03/01/22 15:06 [IV Dye, Iodine Containing] OVER NAUSEA AND LOST RESPIRATIONS Penicillins [PENICILLINS] Allergy Intermediate Unknown Verified 03/01/22 15:06 phenytoin [From Dilantin] Allergy Intermediate gum Verified 03/01/22 15:06 swelling lamotrigine [From Lamictal] Allergy Unknown unknown Verified 03/01/22 15:06 Assessment & Plan Assessment & Plan (1) Delusional disorder: Status: Acute Code(s): F22 - Delusional disorders (2) Epilepsy: Status: Acute Code(s): G40.909 - Epilepsy, unspecified, not intractable, without status epilepticus Plan Nanci is a 56 y.o. Female who has a hx of depression, psychotic agitation, and paranoia in the context of long standing refractory epilepsy. Hx of aphasia. Hx of multiple inpatient admissions for depression, psychotic sx, and paranoia. Pt has been on risperdal since 2018, however recently dose was lowered due to brief invega sustenna trial and risperdal was D.C?d in 01/2022 due to lethargy in the context of polypharm. 05/01: consider trial on abilify or vraylar, as these are less sedating antipsychotics. Will start olanzapine 5 mg QHS PRN for psychosis, agitation. 05/02: Rxed abilify, which pt states she will not take. quite ill: paranoid, delusional, strikingly disorganized and tangential. 05/03: took abilify last night. less disorganized and tangential. continue current regimen. 05/04: no change in presentation. increase abilify to 10 mg BID. 05/05: no change in presentation, continue current mgmt. 05/07/2022: No changes to current treatment. Abilify just increased on 05/04/2022. 05/08- continue current medications. 05/09 continue current medications- pt continues to present with paranoia and capgras delusions. 05/10 increase abilify to 30mg po daily- will do once daily dosing, especially as she may decline night time medications. 05/11 collateral info gathered from daughter who reports delusions in past 4 year- not uncommon with severe types of seizures, especially capgras type delusions. Medications may not be as effective, also considering extend of brain atrophy. pending collateral information from OP psychiatrist. 05/12 continue current medications. 05/13 No changes to meds, pt on 1:1 for seizures, falls I spent minutes with the patient and/or on the patient floor today, greater than?50% of which was spent counseling/coordinating care. Patient educated on: medication risk/benefits Reason for contiued inpatient stay Substantial Risk for: inability to function, rapid decompensation and med/psych decompensation
[2022-05-13] MEDS: Sucralfate 1 GM TABLET PO (10:26)
[2022-05-13] MEDS: Docusate Sodium 100 MG CAPSULE PO ×2 (10:26→23:25)
[2022-05-13 10:30] VITALS: BP 142/71; PULSE 87; RESP 20; O2SAT 99
[2022-05-13] MEDS: Magnesium Oxide 400 MG TABLET PO (10:30)
[2022-05-13] MEDS: Dicyclomine HCl 10 MG CAPSULE PO ×4 (10:30→23:25)
[2022-05-13] MEDS: cloBAZam 10 MG TABLET PO ×2 (10:31→23:25)
[2022-05-13] MEDS: ARIPiprazole 30 MG TABLET PO (10:31)
[2022-05-13] MEDS: LORazepam 0.5 MG TABLET PO (10:46)
--- NOTE | 2022-05-13 15:54 | PC.NURSE ---
Late entry: At 1020, patient was standing in [place], speaking to staff, when without warning she fell forward. Patient did not strike head, no seizure activity noted, patient got herself up shortly after falling. Patient reported pain left arm, but was able to do full ROM with arm. Patient declined to allow RN to examine arm, declined to remove sweater. Provider aware, control operator called, patient confirmed that she did not strike her head, was able to remember the fall. Patient oriented to place but thought the year was 1992, and was not sure of the season. Patient thought content disorganized, paranoid. In course of assessment, patient was asked if she had been taking all medications as prescribed. Patient states she has been, but declined to take off her mask to complete a mouth check. Patient was given Ativan to prevent any further seizure activity. Patient currently ambulatory, 1:1 maintained for safety.
[2022-05-13 16:58] VITALS: BP 125/64; PULSE 65; RESP 18; TEMP 36.6; O2SAT 97
--- NOTE | 2022-05-13 16:59 | PC.NURSE ---
Patient again standing, dropped to floor without warning. Witnessed fall, did not strike head. Patient reports she did not strike head. Reports some pain lower back, right arm. Faint bruising reported right arm. Provider, supervisor chassis assembly aware. Patient able to lift herself off floor, declined wheelchair.
[2022-05-13 23:25] VITALS: BP 131/66; PULSE 75; RESP 18; TEMP 36.7; O2SAT 99
--- NOTE | 2022-05-14 | ECG_ITS ---
Test Reason : syncope Blood Pressure : / mmHG Vent. Rate : 072 BPM Atrial Rate : 072 BPM P-R Int : 162 ms QRS Dur : 072 ms QT Int : 372 ms P-R-T Axes : 002 034 041 degrees QTc Int : 407 ms Normal sinus rhythm Normal ECG When compared with ECG of 01-MAY-2022 10:09, No significant change was found Referred By: Bigg Lemus Electronically Signed By:MARTA CESAR
[2022-05-14] MEDS: Sucralfate 1 GM TABLET PO (08:44)
[2022-05-14] MEDS: ARIPiprazole 30 MG TABLET PO (08:44)
[2022-05-14] MEDS: Docusate Sodium 100 MG CAPSULE PO ×2 (08:44→21:01)
[2022-05-14] MEDS: Omeprazole 20 MG CAPSULE.DR PO (08:44)
[2022-05-14] MEDS: cloBAZam 10 MG TABLET PO ×2 (08:44→21:01)
[2022-05-14] MEDS: Dicyclomine HCl 10 MG CAPSULE PO ×4 (08:44→21:01)
[2022-05-14] MEDS: Magnesium Oxide 400 MG TABLET PO (08:44)
[2022-05-14 09:10] VITALS: BP 121/61; PULSE 90; RESP 18; TEMP 36.6; O2SAT 98
--- NOTE | 2022-05-14 12:53 | HO.PSYCHPN ---
Subjective Subjective Date of Service: 05/14/22 Reason For Visit: psychosis Interim History: I spoke with pt's teams, she had one fall today, no head injury, no complaints of pain, fell forward again, has 1:1. I spoke with pt with veneer trimmer. She says she is doing very well, wants to go home. Says medication helps her with sleep, but she takes them without consent. Pt does not believe T/W is a provider, why are you being who you're not and does not engage meaningfully in conversation. Medication Compliance: Yes Attending Groups: No Review of Systems Acute medical concerns: No Medical Review of Systems: unchanged Mental Status Exam Mental Status Exam Narrative: Casual clothing.? Fair self-care.? Internally preoccupied and guarded.? Paranoid delusions.? No evidence of SI or HI.? Insight and judgment appear limited Diagnostics Vital Signs (24Hr): Vital Signs - 24 hr 05/13/22 16:58 05/13/22 23:25 05/14/22 09:10 Temperature 97.9 F 98.0 F 97.8 F Pulse Rate 65 75 90 Respiratory Rate 18 18 18 Blood Pressure 125/64 131/66 121/61 Pulse Oximetry 97 99 98 Oxygen Delivery Method Room Air Room Air Room Air BMI result Body Mass Index 29.9 Labs Results: 04/28/22 22:32 04/29/22 12:09 Medications Medications Current Medications Acetaminophen (Acetaminophen 325 Mg Tablet) 650 mg PO Q6H PRN PRN Reason: Headache/Pain Mild Scale (1-3) Last Admin: 05/12/22 23:36 Dose: 650 mg Al Hydroxide/Mg Hydroxide (Magnesium Hydrox/Alum Hydrox 30 Ml Oral.Susp) 30 ml PO Q6H PRN PRN Reason: Heartburn/Nausea Aripiprazole (Aripiprazole 30 Mg Tablet) 30 mg PO DAILY [facility] Last Admin: 05/14/22 08:44 Dose: 30 mg Clobazam (Clobazam 10 Mg Tablet) 10 mg PO BID [facility] Last Admin: 05/14/22 08:44 Dose: 10 mg Dicyclomine HCl (Dicyclomine Hcl 10 Mg Capsule) 10 mg PO QID [facility] Last Admin: 05/14/22 12:32 Dose: 10 mg Docusate Sodium (Docusate Sodium 100 Mg Capsule) 100 mg PO BID [facility] Last Admin: 05/14/22 08:44 Dose: 100 mg Hydroxyzine HCl (Hydroxyzine Hcl 25 Mg Tablet) 25 mg PO Q6H PRN PRN Reason: Anxiety Last Admin: 05/11/22 16:43 Dose: 25 mg Loperamide HCl (Loperamide Hcl 2 Mg Capsule) 2 mg PO Q6H PRN PRN Reason: diarrhea Last Admin: 05/11/22 16:42 Dose: 2 mg Magnesium Hydroxide (Milk Of Magnesia 30 Ml Oral.Susp) 30 ml PO DAILY PRN PRN Reason: Constipation Last Admin: 05/06/22 09:42 Dose: 30 ml Magnesium Oxide (Magnesium Oxide 400 Mg Tablet) 400 mg PO DAILY [facility] Last Admin: 05/14/22 08:44 Dose: 400 mg Pt Own Med ( Cenobamate [Xcopri] 150 Mg Tablet) 1 tab PO DAILY [facility] Last Admin: 05/14/22 08:45 Dose: 1 tab Pt Own Med ( Eslicarbazepine [ Aptiom] 600 Mg Tablet) 300 mg PO BID [facility]; Protocol Last Admin: 05/14/22 08:44 Dose: 300 mg Olanzapine (Olanzapine 5 Mg Tablet) 5 mg PO Q4H PRN PRN Reason: psychotic Omeprazole (Omeprazole 20 Mg Capsule.Dr) 20 mg PO DAILY@0630 [facility] Last Admin: 05/14/22 08:44 Dose: 20 mg Senna (Senna [place] Extract Oral Syrup 15 Ml Syrup) 15 ml PO BEDTIME [facility] Last Admin: 05/13/22 23:45 Dose: Not Given Sucralfate (Sucralfate 1 Gm Tablet) 1 gm PO DAILY [facility] Last Admin: 05/14/22 08:44 Dose: 1 gm Trazodone HCl (Trazodone Hcl 50 Mg Tablet) 50 mg PO BEDTIME PRN PRN Reason: Insomnia Last Admin: 05/02/22 20:53 Dose: 50 mg Allergies Allergies Allergy/AdvReac Type Severity Reaction Status Date / Time Iodinated Contrast Media Allergy Intermediate RED ALL Verified 03/01/22 15:06 [IV Dye, Iodine Containing] OVER NAUSEA AND LOST RESPIRATIONS Penicillins [PENICILLINS] Allergy Intermediate Unknown Verified 03/01/22 15:06 phenytoin [From Dilantin] Allergy Intermediate gum Verified 03/01/22 15:06 swelling lamotrigine [From Lamictal] Allergy Unknown unknown Verified 03/01/22 15:06 Assessment & Plan Assessment & Plan (1) Delusional disorder: Status: Acute Code(s): F22 - Delusional disorders (2) Epilepsy: Status: Acute Code(s): G40.909 - Epilepsy, unspecified, not intractable, without status epilepticus Plan Nanci is a 56 y.o. Female who has a hx of depression, psychotic agitation, and paranoia in the context of long standing refractory epilepsy. Hx of aphasia. Hx of multiple inpatient admissions for depression, psychotic sx, and paranoia. Pt has been on risperdal since 2018, however recently dose was lowered due to brief invega sustenna trial and risperdal was D.C?d in 01/2022 due to lethargy in the context of polypharm. 05/01: consider trial on abilify or vraylar, as these are less sedating antipsychotics. Will start olanzapine 5 mg QHS PRN for psychosis, agitation. 05/02: Rxed abilify, which pt states she will not take. quite ill: paranoid, delusional, strikingly disorganized and tangential. 05/03: took abilify last night. less disorganized and tangential. continue current regimen. 05/04: no change in presentation. increase abilify to 10 mg BID. 05/05: no change in presentation, continue current mgmt. 05/07/2022: No changes to current treatment. Abilify just increased on 05/04/2022. 05/08- continue current medications. 05/09 continue current medications- pt continues to present with paranoia and capgras delusions. 05/10 increase abilify to 30mg po daily- will do once daily dosing, especially as she may decline night time medications. 05/11 collateral info gathered from daughter who reports delusions in past 4 year- not uncommon with severe types of seizures, especially capgras type delusions. Medications may not be as effective, also considering extend of brain atrophy. pending collateral information from OP psychiatrist. 05/12 continue current medications. 05/13 No changes to meds, pt on 1:1 for seizures, falls 05/14 Per team, pt has had multiple falls this weekend, seem to be increasing in frequency. Consulted with pharmacist to rule out drug interactions with anti-epileptics and to review meds that lower seizure threshold, will decrease abilify back to 20 mg to see if this helps. I spent minutes with the patient and/or on the patient floor today, greater than?50% of which was spent counseling/coordinating care. Patient educated on: medication risk/benefits Reason for contiued inpatient stay Substantial Risk for: inability to function, rapid decompensation and med/psych decompensation
[2022-05-14 14:20] VITALS: BP 133/65; PULSE 91; RESP 18; TEMP 36.8; O2SAT 100
--- NOTE | 2022-05-14 15:22 | PC.NURSE ---
Late entry: 1420- While in the bathroom, patient suddenly fell backward. Fall witnessed by 1:1, states fall was broken by wastebasket, and patient did not hit head. Provider, bridges and buildings supervisor notified. Patient evaluated post fall with duralumin metalworker present. Patient reports some pain right arm, as before. Patient has full ROM of arms and legs, was able to stand up post fall and ambulate to bed. Patient reports she has very little warning prior to the falls- some blurring of vision. Patient again declining to use wheelchair to prevent falls.
[2022-05-14 19:20] VITALS: BP 146/90; PULSE 98; RESP 18; O2SAT 98
--- NOTE | 2022-05-14 19:40 | PC.NURSE ---
1909: Patient fell in shower. On arrival, patient laying face up on floor of shower. Small area of blood noted on floor, open area ~ 4 mm noted on posterior, left side of head . Patient denies neck pain, reporting some left shoulder pain. + ROM all limbs. Able to stand on her own. Bruise noted to thigh. Yordan Clark notified of fall, and of open area. Hospitalist MD Allan notified of fall with injury at provider's request. Patient currently in CT as ordered.
[2022-05-14] MEDS: Acetaminophen 325 MG TABLET 650 MG PO (21:01)
--- NOTE | 2022-05-14 21:07 | PM.EVENT ---
Event Note Date of Service: 05/15/22 Event Note: Fall/syncope: RN patient had least 7 falls. Patient mentioned that was in the shower, fell down, head strike. Complains of pain in scalp the occipital area -some bleed. Denies any neck pain. Reports right shoulder pain and right pain. Denies any pain on the spine. On exam patient is alert and awake, moves all extremities equally, [id number] test within normal limits, noted scalp laceration about 2 cm in length. Blood clotted. Right shoulder range of motion limited secondary to the pain especially on flexion. Right hip pain elicited on hip flexion. No spinal tenderness noted Plan: Recurrent falls/ syncope: Patient attributes the episode of fall/ syncope to seizure. Patient unable to describe the typical seizure. Patient mentions that she lost consciousness briefly. Patient has known history of seizures/brain surgery has been on antiepileptics. EKG, troponins : Negative Orthostatic vitals Fall precautions Neurology consult CT C-spine, CT head showed no acute findings CT chest: CT abdomen pelvis showed no acute findings Shoulder x-ray pending Scalp laceration: Spoke to Kemi KANE-> who agreed put jakub on the scalp laceration.Jakub to be removed in 7 days. Pulm nodules: PCP follow up for Surveillance CT scans Spoke to Primary team as well.
[2022-05-14 22:48] LABS: Troponin-I High Sensitivity < 3.5 ng/L (<3.5-17.0)
--- NOTE | 2022-05-15 02:03 | PM.PROC ---
Brief Operative Note Date of procedure: 05/15/22 Pre-op diagnosis: Laceration Post-op diagnosis: same Procedure: Patient with an approx 2cm laceration occipital region of head. Area numbed with topical lidocaine and cleansed thoroughly. 6 jakub applied. Anesthesia: local (Topical lidocaine ) Disposition: no change (Jakub to be removed in 7 days )
--- NOTE | 2022-05-15 02:05 | PC.NURSE ---
Pt received 6 jakub in scalp laceration. Bacitracin rosey applied with loose placement of gauze. Advised pt to avoid touching the area. Plan to keep area clean with bacitracin and covered with gauze whenever possible.
[2022-05-15 09:00] VITALS: BP 131/64; BP 131/68; PULSE 87; PULSE 89; RESP 17; TEMP 36.6; O2SAT 99
[2022-05-15] MEDS: ARIPiprazole 20 MG TABLET PO (09:31)
[2022-05-15] MEDS: Magnesium Oxide 400 MG TABLET PO (09:32)
[2022-05-15] MEDS: Omeprazole 20 MG CAPSULE.DR PO (09:32)
[2022-05-15] MEDS: Dicyclomine HCl 10 MG CAPSULE PO ×4 (09:32→21:32)
[2022-05-15] MEDS: cloBAZam 10 MG TABLET PO ×2 (09:32→21:31)
[2022-05-15] MEDS: Docusate Sodium 100 MG CAPSULE PO (09:32)
[2022-05-15 11:00] VITALS: BP 125/64; PULSE 100
[2022-05-15 14:15] VITALS: BP 132/72; PULSE 90; RESP 16; TEMP 36.8; O2SAT 99
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
--- NOTE | 2022-05-15 16:15 | P.PNPSI_ITS ---
Subjective Subjective Date of Service: 05/15/22 Reason For Visit: psychosis Interim History: pt calm and cooperative. seen with conference interpreter. reviews her fall yesterday, which required several jakub. remains with disorganized thoughts and paranoid delusions. states she is in a good mood. per staff, 2 falls yesterday. had to get 6 jakub after one of them. paranoid, disorganized. difficulty following instructions. c/o right hip and head pain. taking medications. not orthostatic this morning. Mental Status Exam Mental Status Exam Narrative: Casual clothing.? Fair self-care.? Internally preoccupied and guarded.? Paranoid delusions.? No evidence of SI or HI.? Insight and judgment appear limited Diagnostics Vital Signs (24Hr): Vital Signs - 24 hr 05/14/22 19:20 05/15/22 09:00 05/15/22 09:00 Temperature 97.9 F Pulse Rate 98 87 89 Respiratory Rate 18 17 Blood Pressure 146/90 H 131/64 131/68 Pulse Oximetry 98 99 Oxygen Delivery Method Room Air Room Air 05/15/22 11:00 05/15/22 14:15 Temperature 98.3 F Pulse Rate 100 90 Respiratory Rate 16 Blood Pressure 125/64 132/72 Pulse Oximetry 99 Oxygen Delivery Method Room Air BMI result Body Mass Index 29.9 Labs Results: 04/28/22 22:32 04/29/22 12:09 Labs: Laboratory Results - last 48 hr 05/14/22 22:17 Troponin I High Sens < 3.5 Imaging Radiology Impressions: ITS Impressions Head CT 05/14/22 19:45 IMPRESSION: No acute intracranial process seen. Left parietal encephalomalacia with overlying craniotomy change. It is stable compared to previous study 01/30/2022 Abdomen/Pelvis CT 05/14/22 22:00 IMPRESSION: Evaluation of acute traumatic sequela is limited due to motion and lack of intravenous contrast. Additionally, evaluation of spinal fractures is limited in the absence of thin section, high resolution reconstruction targeted images of the spine. Accounting for these limitations, no discrete acute traumatic sequela is noted. Cholelithiasis but no evidence of acute cholecystitis. Sub-2 mm pulmonary nodules are indeterminate. Assuming patient has no history of malignancy, recommend follow-up per Fleischner Society recommendations. According to the UPDATED 2017 Fleischner Society recommendations, the advised followup imaging for solid nodules < 6 mm is: LOW RISK PATIENT: No routine follow up. HIGH RISK PATIENT: Optional CT at [address] 05/14/22 22:00 IMPRESSION: No acute cervical spine fracture or malalignment. Cervical spondylosis. Chronic postoperative changes in the soft tissues of the left neck. Periapical lucencies noted. Recommend dental referral. Chest CT 05/14/22 22:00 IMPRESSION: Evaluation of acute traumatic sequela is limited due to motion and lack of intravenous contrast. Additionally, evaluation of spinal fractures is limited in the absence of thin section, high resolution reconstruction targeted images of the spine. Accounting for these limitations, no discrete acute traumatic sequela is noted. Cholelithiasis but no evidence of acute cholecystitis. Sub-2 mm pulmonary nodules are indeterminate. Assuming patient has no history of malignancy, recommend follow-up per Fleischner Society recommendations. According to the UPDATED 2017 Fleischner Society recommendations, the advised followup imaging for solid nodules < 6 mm is: LOW RISK PATIENT: No routine follow up. HIGH RISK PATIENT: Optional CT at 12 months. Medications Medications Current Medications Acetaminophen (Acetaminophen 325 Mg Tablet) 650 mg PO Q6H PRN PRN Reason: Headache/Pain Mild Scale (1-3) Last Admin: 05/14/22 21:01 Dose: 650 mg Al Hydroxide/Mg Hydroxide (Magnesium Hydrox/Alum Hydrox 30 Ml Oral.Susp) 30 ml PO Q6H PRN PRN Reason: Heartburn/Nausea Aripiprazole (Aripiprazole 20 Mg Tablet) 20 mg PO DAILY [facility] Last Admin: 05/15/22 09:31 Dose: 20 mg Clobazam (Clobazam 10 Mg Tablet) 10 mg PO BID [facility] Last Admin: 05/15/22 09:32 Dose: 10 mg Dicyclomine HCl (Dicyclomine Hcl 10 Mg Capsule) 10 mg PO QID [facility] Last Admin: 05/15/22 13:18 Dose: 10 mg Docusate Sodium (Docusate Sodium 100 Mg Capsule) 100 mg PO BID [facility] Last Admin: 05/15/22 09:32 Dose: 100 mg Hydroxyzine HCl (Hydroxyzine Hcl 25 Mg Tablet) 25 mg PO Q6H PRN PRN Reason: Anxiety Last Admin: 05/11/22 16:43 Dose: 25 mg Loperamide HCl (Loperamide Hcl 2 Mg Capsule) 2 mg PO Q6H PRN PRN Reason: diarrhea Last Admin: 05/11/22 16:42 Dose: 2 mg Magnesium Hydroxide (Milk Of Magnesia 30 Ml Oral.Susp) 30 ml PO DAILY PRN PRN Reason: Constipation Last Admin: 05/06/22 09:42 Dose: 30 ml Magnesium Oxide (Magnesium Oxide 400 Mg Tablet) 400 mg PO DAILY [facility] Last Admin: 05/15/22 09:32 Dose: 400 mg Pt Own Med ( Cenobamate [Xcopri] 150 Mg Tablet) 1 tab PO DAILY [facility] Last Admin: 05/15/22 09:31 Dose: 1 tab Pt Own Med ( Eslicarbazepine [ Aptiom] 600 Mg Tablet) 300 mg PO BID [facility]; Protocol Last Admin: 05/15/22 09:31 Dose: 300 mg Olanzapine (Olanzapine 5 Mg Tablet) 5 mg PO Q4H PRN PRN Reason: psychotic Omeprazole (Omeprazole 20 Mg Capsule.Dr) 20 mg PO DAILY@0630 [facility] Last Admin: 05/15/22 09:32 Dose: 20 mg Senna (Senna [place] Extract Oral Syrup 15 Ml Syrup) 15 ml PO BEDTIME [facility] Last Admin: 05/14/22 23:35 Dose: Not Given Trazodone HCl (Trazodone Hcl 50 Mg Tablet) 50 mg PO BEDTIME PRN PRN Reason: Insomnia Last Admin: 05/02/22 20:53 Dose: 50 mg Allergies Allergies Allergy/AdvReac Type Severity Reaction Status Date / Time Iodinated Contrast Media Allergy Intermediate RED ALL Verified 03/01/22 15:06 [IV Dye, Iodine Containing] OVER NAUSEA AND LOST RESPIRATIONS Penicillins [PENICILLINS] Allergy Intermediate Unknown Verified 03/01/22 15:06 phenytoin [From Dilantin] Allergy Intermediate gum Verified 03/01/22 15:06 swelling lamotrigine [From Lamictal] Allergy Unknown unknown Verified 03/01/22 15:06 Assessment & Plan Assessment & Plan (1) Delusional disorder: Status: Acute Code(s): F22 - Delusional disorders (2) Epilepsy: Qualifiers: Epilepsy type: partial symptomatic Partial seizure type: with complex partial seizures Intractability: intractable Status epilepticus: without status epilepticus Qualified Code(s): G40.219 - Localization-related (focal) (partial) symptomatic epilepsy and epileptic syndromes with complex partial seizures, intractable, without status epilepticus Status: Acute Code(s): G40.909 - Epilepsy, unspecified, not intractable, without status epilepticus Assessment and Plan: per 05/15 neuro consult: She will continue to have Sz frequently every week and has failed all meds and combinations, VNS and 2 surgical interventions. Mainstay of treatment is injury protection. Continue her 4 anticonvulsants: Clobazam 10mg bid, Xcopri 150mg qd, Aptiom 600mg 1/2 tid, Phenobarbital 100mg hs Plan Nanci is a 56 y.o. Female who has a hx of depression, psychotic agitation, and paranoia in the context of long standing refractory epilepsy. Hx of aphasia. Hx of multiple inpatient admissions for depression, psychotic sx, and paranoia. Pt has been on risperdal since 2018, however recently dose was lowered due to brief invega sustenna trial and risperdal was D.C?d in 01/2022 due to lethargy in the context of polypharm. 05/01: consider trial on abilify or vraylar, as these are less sedating antipsychotics. Will start olanzapine 5 mg QHS PRN for psychosis, agitation. 05/02: Rxed abilify, which pt states she will not take. quite ill: paranoid, delusional, strikingly disorganized and tangential. 05/03: took abilify last night. less disorganized and tangential. continue current regimen. 05/04: no change in presentation. increase abilify to 10 mg BID. 05/05: no change in presentation, continue current mgmt. 05/07/2022: No changes to current treatment. Abilify just increased on . 05/08: continue current medications. 05/09: continue current medications- pt continues to present with paranoia and capgras delusions. 05/10: increase abilify to 30mg po daily- will do once daily dosing, especially as she may decline night time medications. 05/11: collateral info gathered from daughter who reports delusions in past 4 year- not uncommon with severe types of seizures, especially capgras type delusions. Medications may not be as effective, also considering extend of brain atrophy. pending collateral information from OP psychiatrist. 05/12: continue current medications. 05/13: No changes to meds, pt on 1:1 for seizures, falls 05/14: Per team, pt has had multiple falls this weekend, seem to be increasing in frequency. Consulted with pharmacist to rule out drug interactions with anti- epileptics and to review meds that lower seizure threshold, will decrease abilify back to 20 mg to see if this helps. 05/15: restart phenobarb 60 mg QHS per neuro; the medication was apparently discontinued in the days prior to the present stay. T/C a different neuroleptic from abilify, as it has not appearted to have helped her at dosing up to 30 mg (however briefly at 30 mg). had 2 falls/Sz yesterday, one involving head trauma requiring 6 jakub. I spent __40____ minutes with the patient and/or on the patient floor today, greater than?50% of which was spent counseling/coordinating care. Reason for contiued inpatient stay Substantial Risk for: harm to self, harm to others, inability to function and rapid decompensation
[2022-05-15] MEDS: Acetaminophen 325 MG TABLET 650 MG PO (16:55)
[2022-05-15 19:00] VITALS: BP 144/74; BP 156/79; PULSE 105; RESP 16; TEMP 36.9; O2SAT 100
[2022-05-15] MEDS: PHENobarbitaL 30 MG TABLET 60 MG PO (21:31)
[2022-05-16 08:52] VITALS: BP 128/68; PULSE 91; RESP 16; TEMP 36.7; O2SAT 97
[2022-05-16] MEDS: Dicyclomine HCl 10 MG CAPSULE PO ×3 (08:55→16:20)
[2022-05-16] MEDS: Docusate Sodium 100 MG CAPSULE PO (08:55)
[2022-05-16] MEDS: cloBAZam 10 MG TABLET PO ×2 (08:55→21:20)
[2022-05-16] MEDS: Magnesium Oxide 400 MG TABLET PO (08:56)
[2022-05-16] MEDS: ARIPiprazole 20 MG TABLET PO (08:56)
[2022-05-16] MEDS: Omeprazole 20 MG CAPSULE.DR PO (08:56)
--- NOTE | 2022-05-16 15:38 | HO.PSYCHPN ---
Subjective Subjective Date of Service: 05/16/22 Reason For Visit: psychosis Interim History: no change in presentation. feels no different since starting phenobarb last night. asking for palliative medicine physician times to be 7-12-4-9. per staff, delusional, disoriented. jakub intact. appeared to sleep last night. c/o poor sleep 2/2 pain, however. Mental Status Exam Mental Status Exam Narrative: Casual clothing.? Fair self-care.? Internally preoccupied and guarded.? Paranoid delusions.? No evidence of SI or HI.? Insight and judgment appear limited Diagnostics Vital Signs (24Hr): Vital Signs - 24 hr 05/15/22 19:00 05/15/22 19:00 05/16/22 08:52 Temperature 98.5 F 98.1 F Pulse Rate 105 H 105 H 91 Respiratory Rate 16 16 Blood Pressure 144/74 H 156/79 H 128/68 Pulse Oximetry 100 97 Oxygen Delivery Method Room Air Room Air BMI result Body Mass Index 29.9 Labs Results: 04/28/22 22:32 04/29/22 12:09 Labs: Laboratory Results - last 48 hr 05/14/22 22:17 Troponin I High Sens < 3.5 Imaging Radiology Impressions: ITS Impressions Head CT 05/14/22 19:45 IMPRESSION: No acute intracranial process seen. Left parietal encephalomalacia with overlying craniotomy change. It is stable compared to previous study 01/30/2022 Abdomen/Pelvis CT 05/14/22 22:00 IMPRESSION: Evaluation of acute traumatic sequela is limited due to motion and lack of intravenous contrast. Additionally, evaluation of spinal fractures is limited in the absence of thin section, high resolution reconstruction targeted images of the spine. Accounting for these limitations, no discrete acute traumatic sequela is noted. Cholelithiasis but no evidence of acute cholecystitis. Sub-2 mm pulmonary nodules are indeterminate. Assuming patient has no history of malignancy, recommend follow-up per Fleischner Society recommendations. According to the UPDATED 2017 Fleischner Society recommendations, the advised followup imaging for solid nodules < 6 mm is: LOW RISK PATIENT: No routine follow up. HIGH RISK PATIENT: Optional CT at [address] 05/14/22 22:00 IMPRESSION: No acute cervical spine fracture or malalignment. Cervical spondylosis. Chronic postoperative changes in the soft tissues of the left neck. Periapical lucencies noted. Recommend dental referral. Chest CT 05/14/22 22:00 IMPRESSION: Evaluation of acute traumatic sequela is limited due to motion and lack of intravenous contrast. Additionally, evaluation of spinal fractures is limited in the absence of thin section, high resolution reconstruction targeted images of the spine. Accounting for these limitations, no discrete acute traumatic sequela is noted. Cholelithiasis but no evidence of acute cholecystitis. Sub-2 mm pulmonary nodules are indeterminate. Assuming patient has no history of malignancy, recommend follow-up per Fleischner Society recommendations. According to the UPDATED 2017 Fleischner Society recommendations, the advised followup imaging for solid nodules < 6 mm is: LOW RISK PATIENT: No routine follow up. HIGH RISK PATIENT: Optional CT at 12 months. Shoulder X-Ray 05/15/22 08:45 IMPRESSION: No acute fracture or dislocation of the right shoulder. Old fracture deformity with bony union. Medications Medications Current Medications Acetaminophen (Acetaminophen 325 Mg Tablet) 650 mg PO Q6H PRN PRN Reason: Headache/Pain Mild Scale (1-3) Last Admin: 05/15/22 16:55 Dose: 650 mg Al Hydroxide/Mg Hydroxide (Magnesium Hydrox/Alum Hydrox 30 Ml Oral.Susp) 30 ml PO Q6H PRN PRN Reason: Heartburn/Nausea Clobazam (Clobazam 10 Mg Tablet) 10 mg PO BID [facility] Last Admin: 05/16/22 08:55 Dose: 10 mg Dicyclomine HCl (Dicyclomine Hcl 10 Mg Capsule) 10 mg PO QID [facility] Last Admin: 05/16/22 13:32 Dose: 10 mg Docusate Sodium (Docusate Sodium 100 Mg Capsule) 100 mg PO BID [facility] Last Admin: 05/16/22 08:55 Dose: 100 mg Haloperidol (Haloperidol 5 Mg Tablet) 5 mg PO BID [facility] Hydroxyzine HCl (Hydroxyzine Hcl 25 Mg Tablet) 25 mg PO Q6H PRN PRN Reason: Anxiety Last Admin: 05/11/22 16:43 Dose: 25 mg Loperamide HCl (Loperamide Hcl 2 Mg Capsule) 2 mg PO Q6H PRN PRN Reason: diarrhea Last Admin: 05/11/22 16:42 Dose: 2 mg Magnesium Hydroxide (Milk Of Magnesia 30 Ml Oral.Susp) 30 ml PO DAILY PRN PRN Reason: Constipation Last Admin: 05/06/22 09:42 Dose: 30 ml Magnesium Oxide (Magnesium Oxide 400 Mg Tablet) 400 mg PO DAILY [facility] Last Admin: 05/16/22 08:56 Dose: 400 mg Pt Own Med ( Cenobamate [Xcopri] 150 Mg Tablet) 1 tab PO DAILY [facility] Last Admin: 05/16/22 08:55 Dose: 1 tab Pt Own Med ( Eslicarbazepine [ Aptiom] 600 Mg Tablet) 300 mg PO BID [facility]; Protocol Last Admin: 05/16/22 08:54 Dose: 300 mg Olanzapine (Olanzapine 5 Mg Tablet) 5 mg PO Q4H PRN PRN Reason: psychotic Omeprazole (Omeprazole 20 Mg Capsule.Dr) 20 mg PO DAILY@0630 [facility] Last Admin: 05/16/22 08:56 Dose: 20 mg Phenobarbital (Phenobarbital 30 Mg Tablet) 60 mg PO BEDTIME [facility] Last Admin: 05/15/22 21:31 Dose: 60 mg Senna (Senna [place] Extract Oral Syrup 15 Ml Syrup) 15 ml PO BEDTIME [facility] Last Admin: 05/15/22 21:35 Dose: Not Given Trazodone HCl (Trazodone Hcl 50 Mg Tablet) 50 mg PO BEDTIME PRN PRN Reason: Insomnia Last Admin: 05/02/22 20:53 Dose: 50 mg Allergies Allergies Allergy/AdvReac Type Severity Reaction Status Date / Time Iodinated Contrast Media Allergy Intermediate RED ALL Verified 03/01/22 15:06 [IV Dye, Iodine Containing] OVER NAUSEA AND LOST RESPIRATIONS Penicillins [PENICILLINS] Allergy Intermediate Unknown Verified 03/01/22 15:06 phenytoin [From Dilantin] Allergy Intermediate gum Verified 03/01/22 15:06 swelling lamotrigine [From Lamictal] Allergy Unknown unknown Verified 03/01/22 15:06 Assessment & Plan Assessment & Plan (1) Delusional disorder: Status: Acute Code(s): F22 - Delusional disorders (2) Epilepsy: Qualifiers: Epilepsy type: partial symptomatic Partial seizure type: with complex partial seizures Intractability: intractable Status epilepticus: without status epilepticus Qualified Code(s): G40.219 - Localization-related (focal) (partial) symptomatic epilepsy and epileptic syndromes with complex partial seizures, intractable, without status epilepticus Status: Acute Code(s): G40.909 - Epilepsy, unspecified, not intractable, without status epilepticus Assessment and Plan: per 05/15 neuro consult: She will continue to have Sz frequently every week and has failed all meds and combinations, VNS and 2 surgical interventions. Mainstay of treatment is injury protection. Continue her 4 anticonvulsants: Clobazam 10mg bid, Xcopri 150mg qd, Aptiom 600mg 1/2 tid, Phenobarbital 100mg hs Plan Nanci is a 56 y.o. Female who has a hx of depression, psychotic agitation, and paranoia in the context of long standing refractory epilepsy. Hx of aphasia. Hx of multiple inpatient admissions for depression, psychotic sx, and paranoia. Pt has been on risperdal since 2018, however recently dose was lowered due to brief invega sustenna trial and risperdal was D.C?d in 01/2022 due to lethargy in the context of polypharm. 05/01: consider trial on abilify or vraylar, as these are less sedating antipsychotics. Will start olanzapine 5 mg QHS PRN for psychosis, agitation. 05/02: Rxed abilify, which pt states she will not take. quite ill: paranoid, delusional, strikingly disorganized and tangential. 05/03: took abilify last night. less disorganized and tangential. continue current regimen. 05/04: no change in presentation. increase abilify to 10 mg BID. 05/05: no change in presentation, continue current mgmt. 05/07/2022: No changes to current treatment. Abilify just increased on 05/04/2022. 05/08: continue current medications. 05/09: continue current medications- pt continues to present with paranoia and capgras delusions. 05/10: increase abilify to 30mg po daily- will do once daily dosing, especially as she may decline night time medications. 05/11: collateral info gathered from daughter who reports delusions in past 4 year- not uncommon with severe types of seizures, especially capgras type delusions. Medications may not be as effective, also considering extend of brain atrophy. pending collateral information from OP psychiatrist. 05/12: continue current medications. 05/13: No changes to meds, pt on 1:1 for seizures, falls 05/14: Per team, pt has had multiple falls this weekend, seem to be increasing in frequency. Consulted with pharmacist to rule out drug interactions with anti-epileptics and to review meds that lower seizure threshold, will decrease abilify back to 20 mg to see if this helps. 05/15: restart phenobarb 60 mg QHS per neuro; the medication was apparently discontinued in the days prior to the present stay. T/C a different neuroleptic from abilify, as it has not appeared to have helped her at dosing up to 30 mg (however briefly at 30 mg). had 2 falls/Sz yesterday, one involving head trauma requiring 6 jakub. 05/16: no change in presentation. DC abilify as failed med trial, start haldol 5 BID. phenobarbital 60 mg started last evening per neuro rec. I spent ___35___ minutes with the patient and/or on the patient floor today, greater than?50% of which was spent counseling/coordinating care. Reason for contiued inpatient stay Substantial Risk for: harm to others, inability to function and rapid decompensation
[2022-05-16 21:18] VITALS: BP 104/55; PULSE 87; RESP 16; TEMP 36.6; O2SAT 98
[2022-05-16] MEDS: PHENobarbitaL 30 MG TABLET 60 MG PO (21:19)
[2022-05-16] MEDS: HaloperidoL 5 MG TABLET PO (21:20)
[2022-05-17] MEDS: Docusate Sodium 100 MG CAPSULE PO (06:17)
[2022-05-17] MEDS: Magnesium Oxide 400 MG TABLET PO (06:17)
[2022-05-17] MEDS: HaloperidoL 5 MG TABLET PO ×2 (06:17→21:39)
[2022-05-17] MEDS: Omeprazole 20 MG CAPSULE.DR PO (06:17)
[2022-05-17] MEDS: cloBAZam 10 MG TABLET PO ×2 (06:18→21:39)
[2022-05-17] MEDS: Dicyclomine HCl 10 MG CAPSULE PO ×4 (06:18→21:39)
[2022-05-17 10:40] VITALS: BP 113/55; PULSE 80; RESP 20; TEMP 36.7; O2SAT 99
--- NOTE | 2022-05-17 12:33 | P.PNPSI_ITS ---
Subjective Subjective Date of Service: 05/17/22 Reason For Visit: psychosis Subjective Notes: Conditional Voluntary Interim History: Pt continues to report that a male is coming at night to cut her hair and this person is being paid to do so. She continues to report that medications given here in hospital are not her, but other pts medications. She also continues to be suspicious towards her neighbors and does not trust providers as she thinks they are impostors. No SI/HI. No aggression towards self or others. on one to one due to fall risk. Medication Compliance: Yes Side effects from medications: No Review of Systems Review of Systems CVS: No c/o chest pain, palpitations, no SOB BACK UP SCAN COORDINATOR: No c/o dizziness, headache GI: No c/o Nausea, Vomiting, diarrhea, constipation or heartburn Yes Unobtainable due to mental status Mental Status Exam Mental Status Exam Narrative: Casual clothing.? Fair self-care.? Internally preoccupied and guarded.? Paranoid delusions.? No evidence of SI or HI.? Insight and judgment appear limited Diagnostics Vital Signs (24Hr): Vital Signs - 24 hr 05/17/22 10:40 05/17/22 21:46 Temperature 98.1 F 97.9 F Pulse Rate 80 79 Respiratory Rate 20 16 Blood Pressure 113/55 L 123/58 L Pulse Oximetry 99 98 Oxygen Delivery Method Room Air Room Air BMI result Body Mass Index 29.9 Labs Results: 04/28/22 22:32 04/29/22 12:09 Imaging Radiology Impressions: ITS Impressions Head CT 05/14/22 19:45 IMPRESSION: No acute intracranial process seen. Left parietal encephalomalacia with overlying craniotomy change. It is stable compared to previous study 01/30/2022 Abdomen/Pelvis CT 05/14/22 22:00 IMPRESSION: Evaluation of acute traumatic sequela is limited due to motion and lack of intravenous contrast. Additionally, evaluation of spinal fractures is limited in the absence of thin section, high resolution reconstruction targeted images of the spine. Accounting for these limitations, no discrete acute traumatic sequela is noted. Cholelithiasis but no evidence of acute cholecystitis. Sub-2 mm pulmonary nodules are indeterminate. Assuming patient has no history of malignancy, recommend follow-up per Fleischner Society recommendations. According to the UPDATED 2017 Fleischner Society recommendations, the advised followup imaging for solid nodules < 6 mm is: LOW RISK PATIENT: No routine follow up. HIGH RISK PATIENT: Optional CT at [address] 05/14/22 22:00 IMPRESSION: No acute cervical spine fracture or malalignment. Cervical spondylosis. Chronic postoperative changes in the soft tissues of the left neck. Periapical lucencies noted. Recommend dental referral. Chest CT 05/14/22 22:00 IMPRESSION: Evaluation of acute traumatic sequela is limited due to motion and lack of intravenous contrast. Additionally, evaluation of spinal fractures is limited in the absence of thin section, high resolution reconstruction targeted images of the spine. Accounting for these limitations, no discrete acute traumatic sequela is noted. Cholelithiasis but no evidence of acute cholecystitis. Sub-2 mm pulmonary nodules are indeterminate. Assuming patient has no history of malignancy, recommend follow-up per Fleischner Society recommendations. According to the UPDATED 2017 Fleischner Society recommendations, the advised followup imaging for solid nodules < 6 mm is: LOW RISK PATIENT: No routine follow up. HIGH RISK PATIENT: Optional CT at 12 months. Shoulder X-Ray 05/15/22 08:45 IMPRESSION: No acute fracture or dislocation of the right shoulder. Old fracture deformity with bony union. Medications Medications Current Medications Acetaminophen (Acetaminophen 325 Mg Tablet) 650 mg PO Q6H PRN PRN Reason: Headache/Pain Mild Scale (1-3) Last Admin: 05/15/22 16:55 Dose: 650 mg Al Hydroxide/Mg Hydroxide (Magnesium Hydrox/Alum Hydrox 30 Ml Oral.Susp) 30 ml PO Q6H PRN PRN Reason: Heartburn/Nausea Clobazam (Clobazam 10 Mg Tablet) 10 mg PO BID@0700,2100 [facility] Last Admin: 05/18/22 06:44 Dose: 10 mg Dicyclomine HCl (Dicyclomine Hcl 10 Mg Capsule) 10 mg PO TID@0700,1200,1600 [facility] Last Admin: 05/18/22 06:45 Dose: 10 mg Dicyclomine HCl (Dicyclomine Hcl 10 Mg Capsule) 10 mg PO BEDTIME [facility] Last Admin: 05/17/22 21:39 Dose: 10 mg Docusate Sodium (Docusate Sodium 100 Mg Capsule) 100 mg PO BID@0700,2100 [facility] Last Admin: 05/18/22 06:45 Dose: 100 mg Haloperidol (Haloperidol 5 Mg Tablet) 5 mg PO BID@0700,2100 [facility] Last Admin: 05/18/22 06:45 Dose: 5 mg Hydroxyzine HCl (Hydroxyzine Hcl 25 Mg Tablet) 25 mg PO Q6H PRN PRN Reason: Anxiety Last Admin: 05/11/22 16:43 Dose: 25 mg Loperamide HCl (Loperamide Hcl 2 Mg Capsule) 2 mg PO Q6H PRN PRN Reason: diarrhea Last Admin: 05/11/22 16:42 Dose: 2 mg Magnesium Hydroxide (Milk Of Magnesia 30 Ml Oral.Susp) 30 ml PO DAILY PRN PRN Reason: Constipation Last Admin: 05/06/22 09:42 Dose: 30 ml Magnesium Oxide (Magnesium Oxide 400 Mg Tablet) 400 mg PO DAILY@0700 [facility] Last Admin: 05/18/22 06:44 Dose: 400 mg Pt Own (Cenobamate [ (Xcopri] 1 Tab)) 1 tab PO DAILY@0700 [facility] Last Admin: 05/18/22 06:44 Dose: 1 tab Pt Own ( Eslicarbazepine [ Aptiom] 300 Mg) 300 mg PO BID@0700,2100 [facility]; Protocol Last Admin: 05/18/22 06:45 Dose: 300 mg Olanzapine (Olanzapine 5 Mg Tablet) 5 mg PO Q4H PRN PRN Reason: psychotic Omeprazole (Omeprazole 20 Mg Capsule.Dr) 20 mg PO DAILY@0630 [facility] Last Admin: 05/18/22 06:45 Dose: 20 mg Phenobarbital (Phenobarbital 30 Mg Tablet) 60 mg PO BEDTIME [facility] Last Admin: 05/17/22 21:39 Dose: 60 mg Senna (Senna [place] Extract Oral Syrup 15 Ml Syrup) 15 ml PO BEDTIME [facility] Last Admin: 05/17/22 21:38 Dose: Not Given Trazodone HCl (Trazodone Hcl 50 Mg Tablet) 50 mg PO BEDTIME PRN PRN Reason: Insomnia Last Admin: 05/02/22 20:53 Dose: 50 mg Allergies Allergies Allergy/AdvReac Type Severity Reaction Status Date / Time Iodinated Contrast Media Allergy Intermediate RED ALL Verified 03/01/22 15:06 [IV Dye, Iodine Containing] OVER NAUSEA AND LOST RESPIRATIONS Penicillins [PENICILLINS] Allergy Intermediate Unknown Verified 03/01/22 15:06 phenytoin [From Dilantin] Allergy Intermediate gum Verified 03/01/22 15:06 swelling lamotrigine [From Lamictal] Allergy Unknown unknown Verified 03/01/22 15:06 Assessment & Plan Assessment & Plan (1) Delusional disorder: Status: Acute Code(s): F22 - Delusional disorders (2) Epilepsy: Qualifiers: Epilepsy type: partial symptomatic Partial seizure type: with complex partial seizures Intractability: intractable Status epilepticus: without status epilepticus Qualified Code(s): G40.219 - Localization-related (focal) (partial) symptomatic epilepsy and epileptic syndromes with complex partial seizures, intractable, without status epilepticus Status: Acute Code(s): G40.909 - Epilepsy, unspecified, not intractable, without status epilepticus Assessment and Plan: per 05/15 neuro consult: She will continue to have Sz frequently every week and has failed all meds and combinations, VNS and 2 surgical interventions. Mainstay of treatment is injury protection. Continue her 4 anticonvulsants: Clobazam 10mg bid, Xcopri 150mg qd, Aptiom 600mg 1/2 tid, Phenobarbital 100mg hs Plan Nanci is a 56 y.o. Female who has a hx of depression, psychotic agitation, and paranoia in the context of long standing refractory epilepsy. Hx of aphasia. Hx of multiple inpatient admissions for depression, psychotic sx, and paranoia. Pt has been on risperdal since 2018, however recently dose was lowered due to brief invega sustenna trial and risperdal was D.C?d in 01/2022 due to lethargy in the context of polypharm. 05/01: consider trial on abilify or vraylar, as these are less sedating antipsychotics. Will start olanzapine 5 mg QHS PRN for psychosis, agitation. 05/02: Rxed abilify, which pt states she will not take. quite ill: paranoid, delusional, strikingly disorganized and tangential. 05/03: took abilify last night. less disorganized and tangential. continue current regimen. 05/04: no change in presentation. increase abilify to 10 mg BID. 05/05: no change in presentation, continue current mgmt. 05/07/2022: No changes to current treatment. Abilify just increased on 05/04/2022. 05/08: continue current medications. 05/09: continue current medications- pt continues to present with paranoia and capgras delusions. 05/10: increase abilify to 30mg po daily- will do once daily dosing, especially as she may decline night time medications. 05/11: collateral info gathered from daughter who reports delusions in past 4 year- not uncommon with severe types of seizures, especially capgras type delusions. Medications may not be as effective, also considering extend of brain atrophy. pending collateral information from OP psychiatrist. 05/12: continue current medications. 05/13: No changes to meds, pt on 1:1 for seizures, falls 05/14: Per team, pt has had multiple falls this weekend, seem to be increasing in frequency. Consulted with pharmacist to rule out drug interactions with anti- epileptics and to review meds that lower seizure threshold, will decrease abilify back to 20 mg to see if this helps. 05/15: restart phenobarb 60 mg QHS per neuro; the medication was apparently discontinued in the days prior to the present stay. T/C a different neuroleptic from abilify, as it has not appeared to have helped her at dosing up to 30 mg (however briefly at 30 mg). had 2 falls/Sz yesterday, one involving head trauma requiring 6 jakub. 05/16: no change in presentation. DC abilikamari as failed med trial, start haldol 5 BID. phenobarbital 60 mg started last evening per neuro rec. 05/17 continue current medications. I spent minutes with the patient and/or on the patient floor today, greater than?50% of which was spent counseling/coordinating care. Reason for contiued inpatient stay Substantial Risk for: harm to others and inability to function
[2022-05-17] MEDS: PHENobarbitaL 30 MG TABLET 60 MG PO (21:39)
[2022-05-17 21:46] VITALS: BP 123/58; PULSE 79; RESP 16; TEMP 36.6; O2SAT 98
--- NOTE | 2022-05-17 22:17 | PC.NURSE ---
Pt reported having one episode of prodrome symptoms while reading a book today after taking a shower. She reports she stopped reading and continued to sit and the symptoms passed.
[2022-05-18] MEDS: cloBAZam 10 MG TABLET PO ×2 (06:44→22:10)
[2022-05-18] MEDS: Magnesium Oxide 400 MG TABLET PO (06:44)
[2022-05-18] MEDS: Docusate Sodium 100 MG CAPSULE PO ×2 (06:45→22:10)
[2022-05-18] MEDS: Omeprazole 20 MG CAPSULE.DR PO (06:45)
[2022-05-18] MEDS: Dicyclomine HCl 10 MG CAPSULE PO ×4 (06:45→22:10)
[2022-05-18] MEDS: HaloperidoL 5 MG TABLET PO (06:45)
[2022-05-18 07:00] VITALS: BMI 30.7
[2022-05-18 10:00] VITALS: BP 124/57; PULSE 92; RESP 18; TEMP 36.6; O2SAT 97
--- NOTE | 2022-05-18 13:50 | HO.PSYCHPN ---
Subjective Subjective Date of Service: 05/18/22 Reason For Visit: psychosis Interim History: calm, cooperative. asks about progress in getting her home. told we are working with her daughter on home supports, there is still much concern about her safety at home. seen with it operations manager and SW. describes someone being paid $1,000 to cut her hair and give it to someone else who wants longer hair (delusional). remains disorganized. per staff, withdrawn, c/o back/side pain. anxiety 100 out of 10. denies depression. denies SI/HI/AVH. Mental Status Exam Mental Status Exam Narrative: Casual clothing.? Fair self-care.? Internally preoccupied and guarded.? Paranoid delusions.? No evidence of SI or HI.? Insight and judgment appear limited Diagnostics Vital Signs (24Hr): Vital Signs - 24 hr 05/17/22 21:46 05/18/22 10:00 Temperature 97.9 F 97.9 F Pulse Rate 79 92 Respiratory Rate 16 18 Blood Pressure 123/58 L 124/57 L Pulse Oximetry 98 97 Oxygen Delivery Method Room Air Room Air BMI result Body Mass Index 29.9 Labs Results: 04/28/22 22:32 04/29/22 12:09 Imaging Radiology Impressions: ITS Impressions Head CT 05/14/22 19:45 IMPRESSION: No acute intracranial process seen. Left parietal encephalomalacia with overlying craniotomy change. It is stable compared to previous study 01/30/2022 Abdomen/Pelvis CT 05/14/22 22:00 IMPRESSION: Evaluation of acute traumatic sequela is limited due to motion and lack of intravenous contrast. Additionally, evaluation of spinal fractures is limited in the absence of thin section, high resolution reconstruction targeted images of the spine. Accounting for these limitations, no discrete acute traumatic sequela is noted. Cholelithiasis but no evidence of acute cholecystitis. Sub-2 mm pulmonary nodules are indeterminate. Assuming patient has no history of malignancy, recommend follow-up per Fleischner Society recommendations. According to the UPDATED 2017 Fleischner Society recommendations, the advised followup imaging for solid nodules < 6 mm is: LOW RISK PATIENT: No routine follow up. HIGH RISK PATIENT: Optional CT at [address] 05/14/22 22:00 IMPRESSION: No acute cervical spine fracture or malalignment. Cervical spondylosis. Chronic postoperative changes in the soft tissues of the left neck. Periapical lucencies noted. Recommend dental referral. Chest CT 05/14/22 22:00 IMPRESSION: Evaluation of acute traumatic sequela is limited due to motion and lack of intravenous contrast. Additionally, evaluation of spinal fractures is limited in the absence of thin section, high resolution reconstruction targeted images of the spine. Accounting for these limitations, no discrete acute traumatic sequela is noted. Cholelithiasis but no evidence of acute cholecystitis. Sub-2 mm pulmonary nodules are indeterminate. Assuming patient has no history of malignancy, recommend follow-up per Fleischner Society recommendations. According to the UPDATED 2017 Fleischner Society recommendations, the advised followup imaging for solid nodules < 6 mm is: LOW RISK PATIENT: No routine follow up. HIGH RISK PATIENT: Optional CT at 12 months. Shoulder X-Ray 05/15/22 08:45 IMPRESSION: No acute fracture or dislocation of the right shoulder. Old fracture deformity with bony union. Medications Medications Current Medications Acetaminophen (Acetaminophen 325 Mg Tablet) 650 mg PO Q6H PRN PRN Reason: Headache/Pain Mild Scale (1-3) Last Admin: 05/15/22 16:55 Dose: 650 mg Al Hydroxide/Mg Hydroxide (Magnesium Hydrox/Alum Hydrox 30 Ml Oral.Susp) 30 ml PO Q6H PRN PRN Reason: Heartburn/Nausea Clobazam (Clobazam 10 Mg Tablet) 10 mg PO BID@0700,2100 [facility] Last Admin: 05/18/22 06:44 Dose: 10 mg Dicyclomine HCl (Dicyclomine Hcl 10 Mg Capsule) 10 mg PO TID@0700,1200,1600 [facility] Last Admin: 05/18/22 12:35 Dose: 10 mg Dicyclomine HCl (Dicyclomine Hcl 10 Mg Capsule) 10 mg PO BEDTIME [facility] Last Admin: 05/17/22 21:39 Dose: 10 mg Docusate Sodium (Docusate Sodium 100 Mg Capsule) 100 mg PO BID@0700,2100 [facility] Last Admin: 05/18/22 06:45 Dose: 100 mg Haloperidol (Haloperidol 5 Mg Tablet) 7.5 mg PO BID@0700,2100 [facility] Hydroxyzine HCl (Hydroxyzine Hcl 25 Mg Tablet) 25 mg PO Q6H PRN PRN Reason: Anxiety Last Admin: 05/11/22 16:43 Dose: 25 mg Loperamide HCl (Loperamide Hcl 2 Mg Capsule) 2 mg PO Q6H PRN PRN Reason: diarrhea Last Admin: 05/11/22 16:42 Dose: 2 mg Magnesium Hydroxide (Milk Of Magnesia 30 Ml Oral.Susp) 30 ml PO DAILY PRN PRN Reason: Constipation Last Admin: 05/06/22 09:42 Dose: 30 ml Magnesium Oxide (Magnesium Oxide 400 Mg Tablet) 400 mg PO DAILY@0700 [facility] Last Admin: 05/18/22 06:44 Dose: 400 mg Pt Own (Cenobamate [ (Xcopri] 1 Tab)) 1 tab PO DAILY@0700 [facility] Last Admin: 05/18/22 06:44 Dose: 1 tab Pt Own ( Eslicarbazepine [ Aptiom] 300 Mg) 300 mg PO BID@0700,2100 [facility]; Protocol Last Admin: 05/18/22 06:45 Dose: 300 mg Olanzapine (Olanzapine 5 Mg Tablet) 5 mg PO Q4H PRN PRN Reason: psychotic Omeprazole (Omeprazole 20 Mg Capsule.Dr) 20 mg PO DAILY@0630 [facility] Last Admin: 05/18/22 06:45 Dose: 20 mg Phenobarbital (Phenobarbital 30 Mg Tablet) 60 mg PO BEDTIME [facility] Last Admin: 05/17/22 21:39 Dose: 60 mg Senna (Senna [place] Extract Oral Syrup 15 Ml Syrup) 15 ml PO BEDTIME [facility] Last Admin: 05/17/22 21:38 Dose: Not Given Trazodone HCl (Trazodone Hcl 50 Mg Tablet) 50 mg PO BEDTIME PRN PRN Reason: Insomnia Last Admin: 05/02/22 20:53 Dose: 50 mg Allergies Allergies Allergy/AdvReac Type Severity Reaction Status Date / Time Iodinated Contrast Media Allergy Intermediate RED ALL Verified 03/01/22 15:06 [IV Dye, Iodine Containing] OVER NAUSEA AND LOST RESPIRATIONS Penicillins [PENICILLINS] Allergy Intermediate Unknown Verified 03/01/22 15:06 phenytoin [From Dilantin] Allergy Intermediate gum Verified 03/01/22 15:06 swelling lamotrigine [From Lamictal] Allergy Unknown unknown Verified 03/01/22 15:06 Assessment & Plan Assessment & Plan (1) Delusional disorder: Status: Acute Code(s): F22 - Delusional disorders (2) Epilepsy: Qualifiers: Epilepsy type: partial symptomatic Partial seizure type: with complex partial seizures Intractability: intractable Status epilepticus: without status epilepticus Qualified Code(s): G40.219 - Localization-related (focal) (partial) symptomatic epilepsy and epileptic syndromes with complex partial seizures, intractable, without status epilepticus Status: Acute Code(s): G40.909 - Epilepsy, unspecified, not intractable, without status epilepticus Assessment and Plan: per 05/15 neuro consult: She will continue to have Sz frequently every week and has failed all meds and combinations, VNS and 2 surgical interventions. Mainstay of treatment is injury protection. Continue her 4 anticonvulsants: Clobazam 10mg bid, Xcopri 150mg qd, Aptiom 600mg 1/2 tid, Phenobarbital 100mg hs Plan Nanci is a 56 y.o. Female who has a hx of depression, psychotic agitation, and paranoia in the context of long standing refractory epilepsy. Hx of aphasia. Hx of multiple inpatient admissions for depression, psychotic sx, and paranoia. Pt has been on risperdal since 2018, however recently dose was lowered due to brief invega sustenna trial and risperdal was D.C?d in 01/2022 due to lethargy in the context of polypharm. 05/01: consider trial on abilify or vraylar, as these are less sedating antipsychotics. Will start olanzapine 5 mg QHS PRN for psychosis, agitation. 05/02: Rxed abilify, which pt states she will not take. quite ill: paranoid, delusional, strikingly disorganized and tangential. 05/03: took abilify last night. less disorganized and tangential. continue current regimen. 05/04: no change in presentation. increase abilify to 10 mg BID. 05/05: no change in presentation, continue current mgmt. 05/07/2022: No changes to current treatment. Abilify just increased on 05/04/2022. 05/08: continue current medications. 05/09: continue current medications- pt continues to present with paranoia and capgras delusions. 05/10: increase abilify to 30mg po daily- will do once daily dosing, especially as she may decline night time medications. 05/11: collateral info gathered from daughter who reports delusions in past 4 year- not uncommon with severe types of seizures, especially capgras type delusions. Medications may not be as effective, also considering extend of brain atrophy. pending collateral information from OP psychiatrist. 05/12: continue current medications. 05/13: No changes to meds, pt on 1:1 for seizures, falls 05/14: Per team, pt has had multiple falls this weekend, seem to be increasing in frequency. Consulted with pharmacist to rule out drug interactions with anti-epileptics and to review meds that lower seizure threshold, will decrease abilify back to 20 mg to see if this helps. 05/15: restart phenobarb 60 mg QHS per neuro; the medication was apparently discontinued in the days prior to the present stay. T/C a different neuroleptic from abilify, as it has not appeared to have helped her at dosing up to 30 mg (however briefly at 30 mg). had 2 falls/Sz yesterday, one involving head trauma requiring 6 jakub. 05/16: no change in presentation. DC abilify as failed med trial, start haldol 5 BID. phenobarbital 60 mg started last evening per neuro rec. 05/17 continue current medications. 05/18: no seizures the past two days, apparently. not sedated. remains floridly psychotic and disorganized. increase haldol to 7.5 BID. discussing dispo possibilities with pt's daughter, who is her healthcare proxy. I spent __35____ minutes with the patient and/or on the patient floor today, greater than?50% of which was spent counseling/coordinating care. Reason for contiued inpatient stay Substantial Risk for: inability to function and rapid decompensation
[2022-05-18 21:58] VITALS: BP 111/73; PULSE 86; RESP 16; TEMP 36.6; O2SAT 99
[2022-05-18] MEDS: HaloperidoL 5 MG TABLET 7.5 MG PO (22:09)
[2022-05-18] MEDS: PHENobarbitaL 30 MG TABLET 60 MG PO (22:10)
[2022-05-19] MEDS: Docusate Sodium 100 MG CAPSULE PO ×2 (06:34→21:04)
[2022-05-19] MEDS: cloBAZam 10 MG TABLET PO ×2 (06:35→21:05)
[2022-05-19] MEDS: Omeprazole 20 MG CAPSULE.DR PO (06:35)
[2022-05-19] MEDS: Magnesium Oxide 400 MG TABLET PO (06:35)
[2022-05-19] MEDS: Dicyclomine HCl 10 MG CAPSULE PO ×4 (06:35→21:04)
[2022-05-19] MEDS: HaloperidoL 5 MG TABLET 7.5 MG PO ×2 (06:35→21:05)
[2022-05-19 10:00] VITALS: BP 125/73; PULSE 118; RESP 18; TEMP 36.4; O2SAT 99
--- NOTE | 2022-05-19 11:07 | P.PNPSI_ITS ---
Subjective Subjective Date of Service: 05/19/22 Reason For Visit: psychosis Subjective Notes: Conditional Voluntary Interim History: Pt continues to report paranoia towards neighbors, medications here in hospital which she thinks she is given other patient's medications intentionally. She continues to report someone coming at night to cut her hair and being paid to do so. She denies SI/HI. No aggression. Medication Compliance: Yes Side effects from medications: No Review of Systems Review of Systems CVS: No c/o chest pain, palpitations, no SOB CARD PLAYER: No c/o dizziness, headache GI: No c/o Nausea, Vomiting, diarrhea, constipation or heartburn Yes Unobtainable due to mental status Mental Status Exam Mental Status Exam Narrative: Casual clothing.? Fair self-care.? Internally preoccupied and guarded.? Paranoid delusions.? No evidence of SI or HI.? Insight and judgment appear limited Diagnostics Vital Signs (24Hr): Vital Signs - 24 hr 05/19/22 10:00 05/19/22 21:12 Temperature 97.6 F 97.8 F Pulse Rate 118 H 85 Respiratory Rate 18 Blood Pressure 125/73 115/60 Pulse Oximetry 99 99 Oxygen Delivery Method Room Air Room Air BMI result Body Mass Index 30.7 Labs Results: 04/28/22 22:32 04/29/22 12:09 Imaging Radiology Impressions: ITS Impressions Head CT 05/14/22 19:45 IMPRESSION: No acute intracranial process seen. Left parietal encephalomalacia with overlying craniotomy change. It is stable compared to previous study 01/30/2022 Abdomen/Pelvis CT 05/14/22 22:00 IMPRESSION: Evaluation of acute traumatic sequela is limited due to motion and lack of intravenous contrast. Additionally, evaluation of spinal fractures is limited in the absence of thin section, high resolution reconstruction targeted images of the spine. Accounting for these limitations, no discrete acute traumatic sequela is noted. Cholelithiasis but no evidence of acute cholecystitis. Sub-2 mm pulmonary nodules are indeterminate. Assuming patient has no history of malignancy, recommend follow-up per Fleischner Society recommendations. According to the UPDATED 2017 Fleischner Society recommendations, the advised followup imaging for solid nodules < 6 mm is: LOW RISK PATIENT: No routine follow up. HIGH RISK PATIENT: Optional CT at [address] 05/14/22 22:00 IMPRESSION: No acute cervical spine fracture or malalignment. Cervical spondylosis. Chronic postoperative changes in the soft tissues of the left neck. Periapical lucencies noted. Recommend dental referral. Chest CT 05/14/22 22:00 IMPRESSION: Evaluation of acute traumatic sequela is limited due to motion and lack of intravenous contrast. Additionally, evaluation of spinal fractures is limited in the absence of thin section, high resolution reconstruction targeted images of the spine. Accounting for these limitations, no discrete acute traumatic sequela is noted. Cholelithiasis but no evidence of acute cholecystitis. Sub-2 mm pulmonary nodules are indeterminate. Assuming patient has no history of malignancy, recommend follow-up per Fleischner Society recommendations. According to the UPDATED 2017 Fleischner Society recommendations, the advised followup imaging for solid nodules < 6 mm is: LOW RISK PATIENT: No routine follow up. HIGH RISK PATIENT: Optional CT at 12 months. Shoulder X-Ray 05/15/22 08:45 IMPRESSION: No acute fracture or dislocation of the right shoulder. Old fracture deformity with bony union. Medications Medications Current Medications Acetaminophen (Acetaminophen 325 Mg Tablet) 650 mg PO Q6H PRN PRN Reason: Headache/Pain Mild Scale (1-3) Last Admin: 05/15/22 16:55 Dose: 650 mg Al Hydroxide/Mg Hydroxide (Magnesium Hydrox/Alum Hydrox 30 Ml Oral.Susp) 30 ml PO Q6H PRN PRN Reason: Heartburn/Nausea Clobazam (Clobazam 10 Mg Tablet) 10 mg PO BID@0700,2100 [facility] Last Admin: 05/20/22 06:50 Dose: 10 mg Dicyclomine HCl (Dicyclomine Hcl 10 Mg Capsule) 10 mg PO TID@0700,1200,1600 [facility] Last Admin: 05/20/22 06:50 Dose: 10 mg Dicyclomine HCl (Dicyclomine Hcl 10 Mg Capsule) 10 mg PO BEDTIME [facility] Last Admin: 05/19/22 21:04 Dose: 10 mg Docusate Sodium (Docusate Sodium 100 Mg Capsule) 100 mg PO BID@0700,2100 [facility] Last Admin: 05/20/22 06:50 Dose: 100 mg Haloperidol (Haloperidol 5 Mg Tablet) 7.5 mg PO BID@0700,2100 [facility] Last Admin: 05/20/22 06:49 Dose: 7.5 mg Hydroxyzine HCl (Hydroxyzine Hcl 25 Mg Tablet) 25 mg PO Q6H PRN PRN Reason: Anxiety Last Admin: 05/11/22 16:43 Dose: 25 mg Loperamide HCl (Loperamide Hcl 2 Mg Capsule) 2 mg PO Q6H PRN PRN Reason: diarrhea Last Admin: 05/11/22 16:42 Dose: 2 mg Magnesium Hydroxide (Milk Of Magnesia 30 Ml Oral.Susp) 30 ml PO DAILY PRN PRN Reason: Constipation Last Admin: 05/06/22 09:42 Dose: 30 ml Magnesium Oxide (Magnesium Oxide 400 Mg Tablet) 400 mg PO DAILY@0700 [facility] Last Admin: 05/20/22 06:50 Dose: 400 mg Pt Own (Cenobamate [ (Xcopri] 1 Tab)) 1 tab PO DAILY@0700 [facility] Last Admin: 05/20/22 06:48 Dose: 1 tab Pt Own ( Eslicarbazepine [ Aptiom] 300 Mg) 300 mg PO BID@0700,2100 [facility]; Protocol Last Admin: 05/20/22 06:47 Dose: 300 mg Olanzapine (Olanzapine 5 Mg Tablet) 5 mg PO Q4H PRN PRN Reason: psychotic Omeprazole (Omeprazole 20 Mg Capsule.Dr) 20 mg PO DAILY@0630 [facility] Last Admin: 05/20/22 06:50 Dose: 20 mg Phenobarbital (Phenobarbital 30 Mg Tablet) 60 mg PO BEDTIME [facility] Last Admin: 05/19/22 21:04 Dose: 60 mg Senna (Senna [place] Extract Oral Syrup 15 Ml Syrup) 15 ml PO BEDTIME [facility] Last Admin: 05/19/22 21:09 Dose: Not Given Trazodone HCl (Trazodone Hcl 50 Mg Tablet) 50 mg PO BEDTIME PRN PRN Reason: Insomnia Last Admin: 05/02/22 20:53 Dose: 50 mg Allergies Allergies Allergy/AdvReac Type Severity Reaction Status Date / Time Iodinated Contrast Media Allergy Intermediate RED ALL Verified 03/01/22 15:06 [IV Dye, Iodine Containing] OVER NAUSEA AND LOST RESPIRATIONS Penicillins [PENICILLINS] Allergy Intermediate Unknown Verified 03/01/22 15:06 phenytoin [From Dilantin] Allergy Intermediate gum Verified 03/01/22 15:06 swelling lamotrigine [From Lamictal] Allergy Unknown unknown Verified 03/01/22 15:06 Assessment & Plan Assessment & Plan (1) Delusional disorder: Status: Acute Code(s): F22 - Delusional disorders (2) Epilepsy: Qualifiers: Epilepsy type: partial symptomatic Partial seizure type: with complex partial seizures Intractability: intractable Status epilepticus: without sta tus epilepticus Qualified Code(s): G40.219 - Localization-related (focal) (partial) symptomatic epilepsy and epileptic syndromes with complex partial seizures, intractable, without status epilepticus Status: Acute Code(s): G40.909 - Epilepsy, unspecified, not intractable, without status epilepticus Assessment and Plan: per 05/15 neuro consult: She will continue to have Sz frequently every week and has failed all meds and combinations, VNS and 2 surgical interventions. Mainstay of treatment is injury protection. Continue her 4 anticonvulsants: Clobazam 10mg bid, Xcopri 150mg qd, Aptiom 600mg 1/2 tid, Phenobarbital 100mg hs Plan Nanci is a 56 y.o. Female who has a hx of depression, psychotic agitation, and paranoia in the context of long standing refractory epilepsy. Hx of aphasia. Hx of multiple inpatient admissions for depression, psychotic sx, and paranoia. Pt has been on risperdal since 2018, however recently dose was lowered due to brief invega sustenna trial and risperdal was D.C?d in 01/2022 due to lethargy in the context of polypharm. 05/01: consider trial on abilify or vraylar, as these are less sedating antipsychotics. Will start olanzapine 5 mg QHS PRN for psychosis, agitation. 05/02: Rxed abilify, which pt states she will not take. quite ill: paranoid, del usional, strikingly disorganized and tangential. 05/03: took abilify last night. less disorganized and tangential. continue current regimen. 05/04: no change in presentation. increase abilify to 10 mg BID. 05/05: no change in presentation, continue current mgmt. 05/07/2022: No changes to current treatment. Abilify just increased on 05/04/2022. 05/08: continue current medications. 05/09: continue current medications- pt continues to present with paranoia and capgras delusions. 05/10: increase abilify to 30mg po daily- will do once daily dosing, especially as she may decline night time medications. 05/11: collateral info gathered from daughter who reports delusions in past 4 year- not uncommon with severe types of seizures, especially capgras type delusions. Medications may not be as effective, also considering extend of brain atrophy. pending collateral information from OP psychiatrist. 05/12: continue current medications. 05/13: No changes to meds, pt on 1:1 for seizures, falls 05/14: Per team, pt has had multiple falls this weekend, seem to be increasing in frequency. Consulted with pharmacist to rule out drug interactions with anti- epileptics and to review meds that lower seizure threshold, will decrease abilify back to 20 mg to see if this helps. 05/15: restart phenobarb 60 mg QHS per neuro; the medication was apparently discontinued in the days prior to the present stay. T/C a different neuroleptic from abilify, as it has not appeared to have helped her at dosing up to 30 mg (however briefly at 30 mg). had 2 falls/Sz yesterday, one involving head trauma requiring 6 jakub. 05/16: no change in presentation. DC abilify as failed med trial, start haldol 5 BID. phenobarbital 60 mg started last evening per neuro rec. 05/17 continue current medications. 05/18: no seizures the past two days, apparently. not sedated. remains floridly psychotic and disorganized. increase haldol to 7.5 BID. discussing dispo possibilities with pt's daughter, who is her healthcare proxy. 05/19 continue current medications. I spent minutes with the patient and/or on the patient floor today, greater than?50% of which was spent counseling/coordinating care. Reason for contiued inpatient stay Substantial Risk for: inability to function
[2022-05-19] MEDS: PHENobarbitaL 30 MG TABLET 60 MG PO (21:04)
[2022-05-19 21:12] VITALS: BP 115/60; PULSE 85; TEMP 36.6; O2SAT 99
[2022-05-20] MEDS: HaloperidoL 5 MG TABLET 7.5 MG PO ×2 (06:49→21:37)
[2022-05-20] MEDS: Omeprazole 20 MG CAPSULE.DR PO (06:50)
[2022-05-20] MEDS: Magnesium Oxide 400 MG TABLET PO (06:50)
[2022-05-20] MEDS: Docusate Sodium 100 MG CAPSULE PO ×2 (06:50→21:39)
[2022-05-20] MEDS: cloBAZam 10 MG TABLET PO ×2 (06:50→21:38)
[2022-05-20] MEDS: Dicyclomine HCl 10 MG CAPSULE PO ×4 (06:50→21:38)
--- NOTE | 2022-05-20 10:10 | HO.PSYCHPN ---
Subjective Subjective Date of Service: 05/20/22 Reason For Visit: psychosis Subjective Notes: Conditional Voluntary Healthcare Proxy: No Guardianship: No Medical Problems Affecting Mental Status: No Interim History: Patient was seen and discussed in rounds today. Records and plans were reviewed. She can speak limited Armenian and an nuclear design engineer was not available. She continues to be anxious and depressed. She continues to be paranoid about her medications here and when she was at home. She has been med compliant. No dangerous behaviors. Appears to be responding to internal stimuli. No changes were made today Medication Compliance: Yes Review of Systems Review of Systems Yes unobtainable due to endotracheal tube Mental Status Exam Mental Status Exam Narrative: In today's visit she is alert, pleasant and minimally interactive within her means and the language barrier. Speech is somewhat impaired secondary to neurological problems and brain surgery. She appears to be responding to internal stimuli. No dangerous behaviors. She could not be assessed cognitively. Judgment is hard to assess. Paranoid ideations and delusions persisting. Diagnostics Vital Signs (24Hr): Vital Signs - 24 hr 05/19/22 21:12 Temperature 97.8 F Pulse Rate 85 Blood Pressure 115/60 Pulse Oximetry 99 Oxygen Delivery Method Room Air BMI result Body Mass Index 30.7 Labs Results: 04/28/22 22:32 04/29/22 12:09 Imaging Radiology Impressions: ITS Impressions Head CT 05/14/22 19:45 IMPRESSION: No acute intracranial process seen. Left parietal encephalomalacia with overlying craniotomy change. It is stable compared to previous study 01/30/2022 Abdomen/Pelvis CT 05/14/22 22:00 IMPRESSION: Evaluation of acute traumatic sequela is limited due to motion and lack of intravenous contrast. Additionally, evaluation of spinal fractures is limited in the absence of thin section, high resolution reconstruction targeted images of the spine. Accounting for these limitations, no discrete acute traumatic sequela is noted. Cholelithiasis but no evidence of acute cholecystitis. Sub-2 mm pulmonary nodules are indeterminate. Assuming patient has no history of malignancy, recommend follow-up per Fleischner Society recommendations. According to the UPDATED 2017 Fleischner Society recommendations, the advised followup imaging for solid nodules < 6 mm is: LOW RISK PATIENT: No routine follow up. HIGH RISK PATIENT: Optional CT at [address] 05/14/22 22:00 IMPRESSION: No acute cervical spine fracture or malalignment. Cervical spondylosis. Chronic postoperative changes in the soft tissues of the left neck. Periapical lucencies noted. Recommend dental referral. Chest CT 05/14/22 22:00 IMPRESSION: Evaluation of acute traumatic sequela is limited due to motion and lack of intravenous contrast. Additionally, evaluation of spinal fractures is limited in the absence of thin section, high resolution reconstruction targeted images of the spine. Accounting for these limitations, no discrete acute traumatic sequela is noted. Cholelithiasis but no evidence of acute cholecystitis. Sub-2 mm pulmonary nodules are indeterminate. Assuming patient has no history of malignancy, recommend follow-up per Fleischner Society recommendations. According to the UPDATED 2017 Fleischner Society recommendations, the advised followup imaging for solid nodules < 6 mm is: LOW RISK PATIENT: No routine follow up. HIGH RISK PATIENT: Optional CT at 12 months. Shoulder X-Ray 05/15/22 08:45 IMPRESSION: No acute fracture or dislocation of the right shoulder. Old fracture deformity with bony union. Medications Medications Current Medications Acetaminophen (Acetaminophen 325 Mg Tablet) 650 mg PO Q6H PRN PRN Reason: Headache/Pain Mild Scale (1-3) Last Admin: 05/15/22 16:55 Dose: 650 mg Al Hydroxide/Mg Hydroxide (Magnesium Hydrox/Alum Hydrox 30 Ml Oral.Susp) 30 ml PO Q6H PRN PRN Reason: Heartburn/Nausea Clobazam (Clobazam 10 Mg Tablet) 10 mg PO BID@0700,2100 [facility] Last Admin: 05/20/22 06:50 Dose: 10 mg Dicyclomine HCl (Dicyclomine Hcl 10 Mg Capsule) 10 mg PO TID@0700,1200,1600 [facility] Last Admin: 05/20/22 06:50 Dose: 10 mg Dicyclomine HCl (Dicyclomine Hcl 10 Mg Capsule) 10 mg PO BEDTIME [facility] Last Admin: 05/19/22 21:04 Dose: 10 mg Docusate Sodium (Docusate Sodium 100 Mg Capsule) 100 mg PO BID@0700,2100 [facility] Last Admin: 05/20/22 06:50 Dose: 100 mg Haloperidol (Haloperidol 5 Mg Tablet) 7.5 mg PO BID@0700,2100 [facility] Last Admin: 05/20/22 06:49 Dose: 7.5 mg Hydroxyzine HCl (Hydroxyzine Hcl 25 Mg Tablet) 25 mg PO Q6H PRN PRN Reason: Anxiety Last Admin: 05/11/22 16:43 Dose: 25 mg Loperamide HCl (Loperamide Hcl 2 Mg Capsule) 2 mg PO Q6H PRN PRN Reason: diarrhea Last Admin: 05/11/22 16:42 Dose: 2 mg Magnesium Hydroxide (Milk Of Magnesia 30 Ml Oral.Susp) 30 ml PO DAILY PRN PRN Reason: Constipation Last Admin: 05/06/22 09:42 Dose: 30 ml Magnesium Oxide (Magnesium Oxide 400 Mg Tablet) 400 mg PO DAILY@0700 [facility] Last Admin: 05/20/22 06:50 Dose: 400 mg Pt Own (Cenobamate [ (Xcopri] 1 Tab)) 1 tab PO DAILY@0700 [facility] Last Admin: 05/20/22 06:48 Dose: 1 tab Pt Own ( Eslicarbazepine [ Aptiom] 300 Mg) 300 mg PO BID@0700,2100 [facility]; Protocol Last Admin: 05/20/22 06:47 Dose: 300 mg Olanzapine (Olanzapine 5 Mg Tablet) 5 mg PO Q4H PRN PRN Reason: psychotic Omeprazole (Omeprazole 20 Mg Capsule.Dr) 20 mg PO DAILY@0630 [facility] Last Admin: 05/20/22 06:50 Dose: 20 mg Phenobarbital (Phenobarbital 30 Mg Tablet) 60 mg PO BEDTIME [facility] Last Admin: 05/19/22 21:04 Dose: 60 mg Senna (Senna [place] Extract Oral Syrup 15 Ml Syrup) 15 ml PO BEDTIME [facility] Last Admin: 05/19/22 21:09 Dose: Not Given Trazodone HCl (Trazodone Hcl 50 Mg Tablet) 50 mg PO BEDTIME PRN PRN Reason: Insomnia Last Admin: 05/02/22 20:53 Dose: 50 mg Allergies Allergies Allergy/AdvReac Type Severity Reaction Status Date / Time Iodinated Contrast Media Allergy Intermediate RED ALL Verified 03/01/22 15:06 [IV Dye, Iodine Containing] OVER NAUSEA AND LOST RESPIRATIONS Penicillins [PENICILLINS] Allergy Intermediate Unknown Verified 03/01/22 15:06 phenytoin [From Dilantin] Allergy Intermediate gum Verified 03/01/22 15:06 swelling lamotrigine [From Lamictal] Allergy Unknown unknown Verified 03/01/22 15:06 Assessment & Plan Assessment & Plan (1) Delusional disorder: Status: Acute Code(s): F22 - Delusional disorders (2) Epilepsy: Qualifiers: Epilepsy type: partial symptomatic Partial seizure type: with complex partial seizures Intractability: intractable Status epilepticus: without status epilepticus Qualified Code(s): G40.219 - Localization-related (focal) (partial) symptomatic epilepsy and epileptic syndromes with complex partial seizures, intractable, without status epilepticus Status: Acute Code(s): G40.909 - Epilepsy, unspecified, not intractable, without status epilepticus Assessment and Plan: per 05/15 neuro consult: She will continue to have Sz frequently every week and has failed all meds and combinations, VNS and 2 surgical interventions. Mainstay of treatment is injury protection. Continue her 4 anticonvulsants: Clobazam 10mg bid, Xcopri 150mg qd, Aptiom 600mg 1/2 tid, Phenobarbital 100mg hs Plan Nanci is a 56 y.o. Female who has a hx of depression, psychotic agitation, and paranoia in the context of long standing refractory epilepsy. Hx of aphasia. Hx of multiple inpatient admissions for depression, psychotic sx, and paranoia. Pt has been on risperdal since 2018, however recently dose was lowered due to brief invega sustenna trial and risperdal was D.C?d in 01/2022 due to lethargy in the context of polypharm. 05/01: consider trial on abilify or vraylar, as these are less sedating antipsychotics. Will start olanzapine 5 mg QHS PRN for psychosis, agitation. 05/02: Rxed abilify, which pt states she will not take. quite ill: paranoid, delusional, strikingly disorganized and tangential. 05/03: took abilify last night. less disorganized and tangential. continue current regimen. 05/04: no change in presentation. increase abilify to 10 mg BID. 05/05: no change in presentation, continue current mgmt. 05/07/2022: No changes to current treatment. Abilify just increased on 05/04/2022. 05/08: continue current medications. 05/09: continue current medications- pt continues to present with paranoia and capgras delusions. 05/10: increase abilify to 30mg po daily- will do once daily dosing, especially as she may decline night time medications. 05/11: collateral info gathered from daughter who reports delusions in past 4 year- not uncommon with severe types of seizures, especially capgras type delusions. Medications may not be as effective, also considering extend of brain atrophy. pending collateral information from OP psychiatrist. 05/12: continue current medications. 05/13: No changes to meds, pt on 1:1 for seizures, falls 05/14: Per team, pt has had multiple falls this weekend, seem to be increasing in frequency. Consulted with pharmacist to rule out drug interactions with anti-epileptics and to review meds that lower seizure threshold, will decrease abilify back to 20 mg to see if this helps. 05/15: restart phenobarb 60 mg QHS per neuro; the medication was apparently discontinued in the days prior to the present stay. T/C a different neuroleptic from abilify, as it has not appeared to have helped her at dosing up to 30 mg (however briefly at 30 mg). had 2 falls/Sz yesterday, one involving head trauma requiring 6 jakub. 05/16: no change in presentation. DC abilify as failed med trial, start haldol 5 BID. phenobarbital 60 mg started last evening per neuro rec. 05/17 continue current medications. 05/18: no seizures the past two days, apparently. not sedated. remains floridly psychotic and disorganized. increase haldol to 7.5 BID. discussing dispo possibilities with pt's daughter, who is her healthcare proxy. 05/19 continue current medications. 05/20: Continue current regimen and plans I spent minutes with the patient and/or on the patient floor today, greater than?50% of which was spent counseling/coordinating care. Reason for contiued inpatient stay Substantial Risk for: med/psych decompensation
[2022-05-20 13:27] VITALS: BP 127/59; PULSE 87; RESP 18; TEMP 36.3; O2SAT 87
[2022-05-20] MEDS: PHENobarbitaL 30 MG TABLET 60 MG PO (21:37)
[2022-05-20 21:42] VITALS: BP 108/68; PULSE 86; TEMP 36.6; O2SAT 100
[2022-05-21] MEDS: Dicyclomine HCl 10 MG CAPSULE PO ×4 (06:52→21:56)
[2022-05-21] MEDS: Magnesium Oxide 400 MG TABLET PO (06:52)
[2022-05-21] MEDS: cloBAZam 10 MG TABLET PO ×2 (06:52→21:56)
[2022-05-21] MEDS: Docusate Sodium 100 MG CAPSULE PO ×2 (06:52→21:56)
[2022-05-21] MEDS: HaloperidoL 5 MG TABLET 7.5 MG PO ×2 (06:52→21:56)
[2022-05-21] MEDS: Omeprazole 20 MG CAPSULE.DR PO (06:54)
[2022-05-21 08:10] VITALS: BP 126/74; PULSE 98; TEMP 36.6; O2SAT 98
--- NOTE | 2022-05-21 09:03 | P.PNPSI_ITS ---
Subjective Subjective Date of Service: 05/21/22 Reason For Visit: psychosis Subjective Notes: Conditional Voluntary Healthcare Proxy: No Guardianship: No Medical Problems Affecting Mental Status: Yes (Seizure disorder) Interim History: Patient was seen and discussed in rounds today. Records and plans were reviewed. She can speak limited Slovenian and an handcrew foreman was not available. She continues to be on one-to-one level of observation because of her seizures. She is brighter. She continues to be isolative. Eating and sleeping adequately. Some paranoid ideations present. No episodes of agitation. No changes were made today Medication Compliance: Yes Review of Systems Review of Systems Yes Unobtainable due to mental status Diagnostics Vital Signs (24Hr): Vital Signs - 24 hr 05/20/22 13:27 05/20/22 21:42 05/21/22 08:10 Temperature 97.4 F 97.9 F 97.9 F Pulse Rate 87 86 98 Respiratory Rate 18 Blood Pressure 127/59 L 108/68 126/74 Pulse Oximetry 87 L 100 98 Oxygen Delivery Method Room Air Room Air Room Air BMI result Body Mass Index 30.7 Labs Results: 04/28/22 22:32 04/29/22 12:09 Imaging Radiology Impressions: ITS Impressions Head CT 05/14/22 19:45 IMPRESSION: No acute intracranial process seen. Left parietal encephalomalacia with overlying craniotomy change. It is stable compared to previous study 01/30/2022 Abdomen/Pelvis CT 05/14/22 22:00 IMPRESSION: Evaluation of acute traumatic sequela is limited due to motion and lack of intravenous contrast. Additionally, evaluation of spinal fractures is limited in the absence of thin section, high resolution reconstruction targeted images of the spine. Accounting for these limitations, no discrete acute traumatic sequela is noted. Cholelithiasis but no evidence of acute cholecystitis. Sub-2 mm pulmonary nodules are indeterminate. Assuming patient has no history of malignancy, recommend follow-up per Fleischner Society recommendations. According to the UPDATED 2017 Fleischner Society recommendations, the advised followup imaging for solid nodules < 6 mm is: LOW RISK PATIENT: No routine follow up. HIGH RISK PATIENT: Optional CT at [address] 05/14/22 22:00 IMPRESSION: No acute cervical spine fracture or malalignment. Cervical spondylosis. Chronic postoperative changes in the soft tissues of the left neck. Periapical lucencies noted. Recommend dental referral. Chest CT 05/14/22 22:00 IMPRESSION: Evaluation of acute traumatic sequela is limited due to motion and lack of intravenous contrast. Additionally, evaluation of spinal fractures is limited in the absence of thin section, high resolution reconstruction targeted images of the spine. Accounting for these limitations, no discrete acute traumatic sequela is noted. Cholelithiasis but no evidence of acute cholecystitis. Sub-2 mm pulmonary nodules are indeterminate. Assuming patient has no history of malignancy, recommend follow-up per Fleischner Society recommendations. According to the UPDATED 2017 Fleischner Society recommendations, the advised followup imaging for solid nodules < 6 mm is: LOW RISK PATIENT: No routine follow up. HIGH RISK PATIENT: Optional CT at 12 months. Shoulder X-Ray 05/15/22 08:45 IMPRESSION: No acute fracture or dislocation of the right shoulder. Old fracture deformity with bony union. Medications Medications Current Medications Acetaminophen (Acetaminophen 325 Mg Tablet) 650 mg PO Q6H PRN PRN Reason: Headache/Pain Mild Scale (1-3) Last Admin: 05/15/22 16:55 Dose: 650 mg Al Hydroxide/Mg Hydroxide (Magnesium Hydrox/Alum Hydrox 30 Ml Oral.Susp) 30 ml PO Q6H PRN PRN Reason: Heartburn/Nausea Clobazam (Clobazam 10 Mg Tablet) 10 mg PO BID@0700,2100 [facility] Last Admin: 05/21/22 06:52 Dose: 10 mg Dicyclomine HCl (Dicyclomine Hcl 10 Mg Capsule) 10 mg PO TID@0700,1200,1600 [facility] Last Admin: 05/21/22 06:52 Dose: 10 mg Dicyclomine HCl (Dicyclomine Hcl 10 Mg Capsule) 10 mg PO BEDTIME [facility] Last Admin: 05/20/22 21:38 Dose: 10 mg Docusate Sodium (Docusate Sodium 100 Mg Capsule) 100 mg PO BID@0700,2100 [facility] Last Admin: 05/21/22 06:52 Dose: 100 mg Haloperidol (Haloperidol 5 Mg Tablet) 7.5 mg PO BID@0700,2100 [facility] Last Admin: 05/21/22 06:52 Dose: 7.5 mg Hydroxyzine HCl (Hydroxyzine Hcl 25 Mg Tablet) 25 mg PO Q6H PRN PRN Reason: Anxiety Last Admin: 05/11/22 16:43 Dose: 25 mg Loperamide HCl (Loperamide Hcl 2 Mg Capsule) 2 mg PO Q6H PRN PRN Reason: diarrhea Last Admin: 05/11/22 16:42 Dose: 2 mg Magnesium Hydroxide (Milk Of Magnesia 30 Ml Oral.Susp) 30 ml PO DAILY PRN PRN Reason: Constipation Last Admin: 05/06/22 09:42 Dose: 30 ml Magnesium Oxide (Magnesium Oxide 400 Mg Tablet) 400 mg PO DAILY@0700 [facility] Last Admin: 05/21/22 06:52 Dose: 400 mg Pt Own (Cenobamate [ (Xcopri] 1 Tab)) 1 tab PO DAILY@0700 [facility] Last Admin: 05/21/22 06:51 Dose: 1 tab Pt Own ( Eslicarbazepine [ Aptiom] 300 Mg) 300 mg PO BID@0700,2100 [facility]; Protocol Last Admin: 05/21/22 06:51 Dose: 300 mg Olanzapine (Olanzapine 5 Mg Tablet) 5 mg PO Q4H PRN PRN Reason: psychotic Omeprazole (Omeprazole 20 Mg Capsule.Dr) 20 mg PO DAILY@0630 [facility] Last Admin: 05/21/22 06:54 Dose: 20 mg Phenobarbital (Phenobarbital 30 Mg Tablet) 60 mg PO BEDTIME [facility] Last Admin: 05/20/22 21:37 Dose: 60 mg Senna (Senna [place] Extract Oral Syrup 15 Ml Syrup) 15 ml PO BEDTIME [facility] Last Admin: 05/20/22 21:41 Dose: Not Given Trazodone HCl (Trazodone Hcl 50 Mg Tablet) 50 mg PO BEDTIME PRN PRN Reason: Insomnia Last Admin: 05/02/22 20:53 Dose: 50 mg Allergies Allergies Allergy/AdvReac Type Severity Reaction Status Date / Time Iodinated Contrast Media Allergy Intermediate RED ALL Verified 03/01/22 15:06 [IV Dye, Iodine Containing] OVER NAUSEA AND LOST RESPIRATIONS Penicillins [PENICILLINS] Allergy Intermediate Unknown Verified 03/01/22 15:06 phenytoin [From Dilantin] Allergy Intermediate gum Verified 03/01/22 15:06 swelling lamotrigine [From Lamictal] Allergy Unknown unknown Verified 03/01/22 15:06 Assessment & Plan Assessment & Plan (1) Delusional disorder: Status: Acute Code(s): F22 - Delusional disorders (2) Epilepsy: Qualifiers: Epilepsy type: partial symptomatic Partial seizure type: with complex partial seizures Intractability: intractable Status epilepticus: without status epilepticus Qualified Code(s): G40.219 - Localization-related (focal) (partial) symptomatic epilepsy and epileptic syndromes with complex partial se izures, intractable, without status epilepticus Status: Acute Code(s): G40.909 - Epilepsy, unspecified, not intractable, without status epilepticus Assessment and Plan: per 05/15 neuro consult: She will continue to have Sz frequently every week and has failed all meds and combinations, VNS and 2 surgical interventions. Mainstay of treatment is injury protection. Continue her 4 anticonvulsants: Clobazam 10mg bid, Xcopri 150mg qd, Aptiom 600mg 1/2 tid, Phenobarbital 100mg hs Plan Nanci is a 56 y.o. Female who has a hx of depression, psychotic agitation, and paranoia in the context of long standing refractory epilepsy. Hx of aphasia. Hx of multiple inpatient admissions for depression, psychotic sx, and paranoia. Pt has been on risperdal since 2017, however recently dose was lowered due to brief invega sustenna trial and risperdal was D.C?d in 01/2022 due to lethargy in the context of polypharm. 05/01: consider trial on abilify or vraylar, as these are less sedating antipsychotics. Will start olanzapine 5 mg QHS PRN for psychosis, agitation. 05/02: Rxed abilify, which pt states she will not take. quite ill: paranoid, delusional, strikingly disorganized and tangential. 05/03: took abilify last night. less disorganized and tangential. continue current regimen. 05/04: no change in presentation. increase abilify to 10 mg BID. 05/05: no change in presentation, continue current mgmt. 05/07/2022: No changes to current treatment. Abilify just increased on 05/04/2022. 05/08: continue current medications. 05/09: continue current medications- pt continues to present with paranoia and capgras delusions. 05/10: increase abilify to 30mg po daily- will do once daily dosing, especially as she may decline night time medications. 05/11: collateral info gathered from daughter who reports delusions in past 4 year- not uncommon with severe types of seizures, especially capgras type delusions. Medications may not be as effective, also considering extend of brain atrophy. pending collateral information from OP psychiatrist. 05/12: continue current medications. 05/13: No changes to meds, pt on 1:1 for seizures, falls 05/14: Per team, pt has had multiple falls this weekend, seem to be increasing in frequency. Consulted with pharmacist to rule out drug interactions with anti- epileptics and to review meds that lower seizure threshold, will decrease abilify back to 20 mg to see if this helps. 05/15: restart phenobarb 60 mg QHS per neuro; the medication was apparently discontinued in the days prior to the present stay. T/C a different neuroleptic from abilify, as it has not appeared to have helped her at dosing up to 30 mg (however briefly at 30 mg). had 2 falls/Sz yesterday, one involving head trauma requiring 6 jakub. 05/16: no change in presentation. DC abilify as failed med trial, start haldol 5 BID. phenobarbital 60 mg started last evening per neuro rec. 05/17 continue current medications. 05/18: no seizures the past two days, apparently. not sedated. remains floridly psychotic and disorganized. increase haldol to 7.5 BID. discussing dispo possibilities with pt's daughter, who is her healthcare proxy. 05/19 continue current medications. 05/20: Continue current regimen and plans 05/21: Continue current regimen and plans I spent minutes with the patient and/or on the patient floor today, greater than?50% of which was spent counseling/coordinating care. Reason for contiued inpatient stay Substantial Risk for: med/psych decompensation
--- NOTE | 2022-05-21 12:21 | PC.NURSE ---
Spoke w/ pt with virtual account services coordinator. Pt stated I want to go home right now. RN explained that we unfortunately are unable to discharge her on the weekend and we would need a doctor's order. RN offered her to sign a 3-day notice and she said I'm not signing that, I'm not stupid.
--- NOTE | 2022-05-21 13:26 | PC.NURSE ---
Met with PT with blade operator. PT states she wants to leave, pt was offered a 3-day letter, pt stated i don't like to write all that I want to leave now 3-day letter signd on behalf of patient, process explained, pt states i don't want to wait until sunday, I want to go home I have help. My roommate showers without soap PT states that she is unhappy that she cannot use her own products, scent free unit explained. Pt reminded that toay is Sunday, Pt states fine then I want to leave tomorrow
[2022-05-21 20:30] VITALS: BP 118/58; PULSE 83; RESP 18; TEMP 36.7; O2SAT 99
[2022-05-21] MEDS: PHENobarbitaL 30 MG TABLET 60 MG PO (21:56)
[2022-05-22 08:00] VITALS: BP 104/58; PULSE 78; RESP 18; TEMP 36.3; O2SAT 98
[2022-05-22] MEDS: Omeprazole 20 MG CAPSULE.DR PO (08:00)
[2022-05-22] MEDS: Docusate Sodium 100 MG CAPSULE PO ×2 (08:00→22:03)
[2022-05-22] MEDS: cloBAZam 10 MG TABLET PO ×2 (08:00→22:02)
[2022-05-22] MEDS: Magnesium Oxide 400 MG TABLET PO (08:00)
[2022-05-22] MEDS: Dicyclomine HCl 10 MG CAPSULE PO ×4 (08:00→22:02)
[2022-05-22] MEDS: HaloperidoL 5 MG TABLET 7.5 MG PO ×2 (08:00→22:02)
--- NOTE | 2022-05-22 09:13 | HO.PSYCHPN ---
Subjective Subjective Date of Service: 05/22/22 Reason For Visit: psychosis Interim History: Patient was seen and discussed in rounds today. Records and plans were reviewed. She can speak limited Nepali and an director ship was not available. She continues to be on one-to-one level of observation because of her seizures. She is brighter. She continues to be isolative. Eating and sleeping adequately. Some paranoid ideations present. No episodes of agitation. 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: No c/o dizziness, headache GI: No c/o Nausea, Vomiting, diarrhea, constipation or heartburn Yes unobtainable due to endotracheal tube and Unobtainable due to mental status Mental Status Exam Mental Status Exam Narrative: Appearance: casually groomed, fair hygiene in NAD Behavior:cooperative psychomotor: no agitation or retardation noted Speech:some stutter, brief mumbles at times, soft tone, spontaneous Thought process:some derailment, but able to respond most questions appropriately Thought content:less paranoid towards providers, does not think male came last night, but wants to go home Mood: okay Affect: constricted SI:denies HI:denies VH/AH:appears internally preoccupied Delusions:less paranoid delusions Insight/judgment:impaired x 2. Memory/cog: alert, oriented to place, not situation, nor month/year. Diagnostics Vital Signs (24Hr): Vital Signs - 24 hr 05/22/22 21:00 Temperature 98.0 F Pulse Rate 78 Respiratory Rate 18 Blood Pressure 113/59 L Pulse Oximetry 98 Oxygen Delivery Method Room Air BMI result Body Mass Index 30.7 Labs Results: 04/28/22 22:32 04/29/22 12:09 Imaging Radiology Impressions: ITS Impressions Head CT 05/14/22 19:45 IMPRESSION: No acute intracranial process seen. Left parietal encephalomalacia with overlying craniotomy change. It is stable compared to previous study 01/30/2022 Abdomen/Pelvis CT 05/14/22 22:00 IMPRESSION: Evaluation of acute traumatic sequela is limited due to motion and lack of intravenous contrast. Additionally, evaluation of spinal fractures is limited in the absence of thin section, high resolution reconstruction targeted images of the spine. Accounting for these limitations, no discrete acute traumatic sequela is noted. Cholelithiasis but no evidence of acute cholecystitis. Sub-2 mm pulmonary nodules are indeterminate. Assuming patient has no history of malignancy, recommend follow-up per Fleischner Society recommendations. According to the UPDATED 2017 Fleischner Society recommendations, the advised followup imaging for solid nodules < 6 mm is: LOW RISK PATIENT: No routine follow up. HIGH RISK PATIENT: Optional CT at [address] 05/14/22 22:00 IMPRESSION: No acute cervical spine fracture or malalignment. Cervical spondylosis. Chronic postoperative changes in the soft tissues of the left neck. Periapical lucencies noted. Recommend dental referral. Chest CT 05/14/22 22:00 IMPRESSION: Evaluation of acute traumatic sequela is limited due to motion and lack of intravenous contrast. Additionally, evaluation of spinal fractures is limited in the absence of thin section, high resolution reconstruction targeted images of the spine. Accounting for these limitations, no discrete acute traumatic sequela is noted. Cholelithiasis but no evidence of acute cholecystitis. Sub-2 mm pulmonary nodules are indeterminate. Assuming patient has no history of malignancy, recommend follow-up per Fleischner Society recommendations. According to the UPDATED 2017 Fleischner Society recommendations, the advised followup imaging for solid nodules < 6 mm is: LOW RISK PATIENT: No routine follow up. HIGH RISK PATIENT: Optional CT at 12 months. Shoulder X-Ray 05/15/22 08:45 IMPRESSION: No acute fracture or dislocation of the right shoulder. Old fracture deformity with bony union. Medications Medications Current Medications Acetaminophen (Acetaminophen 325 Mg Tablet) 650 mg PO Q6H PRN PRN Reason: Headache/Pain Mild Scale (1-3) Last Admin: 05/15/22 16:55 Dose: 650 mg Al Hydroxide/Mg Hydroxide (Magnesium Hydrox/Alum Hydrox 30 Ml Oral.Susp) 30 ml PO Q6H PRN PRN Reason: Heartburn/Nausea Clobazam (Clobazam 10 Mg Tablet) 10 mg PO BID@0700,2100 [facility] Last Admin: 05/23/22 06:31 Dose: 10 mg Dicyclomine HCl (Dicyclomine Hcl 10 Mg Capsule) 10 mg PO TID@0700,1200,1600 [facility] Last Admin: 05/23/22 06:31 Dose: 10 mg Dicyclomine HCl (Dicyclomine Hcl 10 Mg Capsule) 10 mg PO BEDTIME [facility] Last Admin: 05/22/22 22:02 Dose: 10 mg Docusate Sodium (Docusate Sodium 100 Mg Capsule) 100 mg PO BID@699,2099 [facility] Last Admin: 05/23/22 06:31 Dose: 100 mg Haloperidol (Haloperidol 5 Mg Tablet) 7.5 mg PO BID@699,2099 [facility] Last Admin: 05/23/22 06:32 Dose: 7.5 mg Hydroxyzine HCl (Hydroxyzine Hcl 25 Mg Tablet) 25 mg PO Q6H PRN PRN Reason: Anxiety Last Admin: 05/11/22 16:43 Dose: 25 mg Loperamide HCl (Loperamide Hcl 2 Mg Capsule) 2 mg PO Q6H PRN PRN Reason: diarrhea Last Admin: 05/11/22 16:42 Dose: 2 mg Magnesium Hydroxide (Milk Of Magnesia 30 Ml Oral.Susp) 30 ml PO DAILY PRN PRN Reason: Constipation Last Admin: 05/06/22 09:42 Dose: 30 ml Magnesium Oxide (Magnesium Oxide 400 Mg Tablet) 400 mg PO DAILY@07 [facility] Last Admin: 05/23/22 06:32 Dose: 400 mg Pt Own (Cenobamate [ (Xcopri] 1 Tab)) 1 tab PO DAILY@699 [facility] Last Admin: 05/23/22 06:34 Dose: 1 tab Pt Own ( Eslicarbazepine [ Aptiom] 300 Mg) 300 mg PO BID@699,2099 [facility]; Protocol Last Admin: 05/23/22 06:38 Dose: 300 mg Olanzapine (Olanzapine 5 Mg Tablet) 5 mg PO Q4H PRN PRN Reason: psychotic Omeprazole (Omeprazole 20 Mg Capsule.Dr) 20 mg PO DAILY@629 [facility] Last Admin: 05/23/22 06:32 Dose: 20 mg Phenobarbital (Phenobarbital 30 Mg Tablet) 60 mg PO BEDTIME [facility] Last Admin: 05/22/22 22:02 Dose: 60 mg Senna (Senna [place] Extract Oral Syrup 15 Ml Syrup) 15 ml PO BEDTIME [facility] Last Admin: 05/22/22 22:04 Dose: Not Given Trazodone HCl (Trazodone Hcl 50 Mg Tablet) 50 mg PO BEDTIME PRN PRN Reason: Insomnia Last Admin: 05/02/22 20:53 Dose: 50 mg Allergies Allergies Allergy/AdvReac Type Severity Reaction Status Date / Time Iodinated Contrast Media Allergy Intermediate RED ALL Verified 03/01/22 15:06 [IV Dye, Iodine Containing] OVER NAUSEA AND LOST RESPIRATIONS Penicillins [PENICILLINS] Allergy Intermediate Unknown Verified 03/01/22 15:06 phenytoin [From Dilantin] Allergy Intermediate gum Verified 03/01/22 15:06 swelling lamotrigine [From Lamictal] Allergy Unknown unknown Verified 03/01/22 15:06 Assessment & Plan Assessment & Plan (1) Delusional disorder: Status: Acute Code(s): F22 - Delusional disorders (2) Epilepsy: Qualifiers: Epilepsy type: partial symptomatic Partial seizure type: with complex partial seizures Intractability: intractable Status epilepticus: without status epilepticus Qualified Code(s): G40.219 - Localization-related (focal) (partial) symptomatic epilepsy and epileptic syndromes with complex partial seizures, intractable, without status epilepticus Status: Acute Code(s): G40.909 - Epilepsy, unspecified, not intractable, without status epilepticus Assessment and Plan: per 05/15 neuro consult: She will continue to have Sz frequently every week and has failed all meds and combinations, VNS and 2 surgical interventions. Mainstay of treatment is injury protection. Continue her 4 anticonvulsants: Clobazam 10mg bid, Xcopri 150mg qd, Aptiom 600mg 1/2 tid, Phenobarbital 100mg hs Riya Christine is a 56 y.o. Female who has a hx of depression, psychotic agitation, and paranoia in the context of long standing refractory epilepsy. Hx of aphasia. Hx of multiple inpatient admissions for depression, psychotic sx, and paranoia. Pt has been on risperdal since 2018, however recently dose was lowered due to brief invega sustenna trial and risperdal was D.C?d in 01/2022 due to lethargy in the context of polypharm. 05/01: consider trial on abilify or vraylar, as these are less sedating antipsychotics. Will start olanzapine 5 mg QHS PRN for psychosis, agitation. 05/02: Rxed abilify, which pt states she will not take. quite ill: paranoid, delusional, strikingly disorganized and tangential. 05/03: took abilify last night. less disorganized and tangential. continue current regimen. 05/04: no change in presentation. increase abilify to 10 mg BID. 05/05: no change in presentation, continue current mgmt. 05/07/2022: No changes to current treatment. Abilify just increased on 05/04/2022. 05/08: continue current medications. 05/09: continue current medications- pt continues to present with paranoia and capgras delusions. 05/10: increase abilify to 30mg po daily- will do once daily dosing, especially as she may decline night time medications. 05/11: collateral info gathered from daughter who reports delusions in past 4 year- not uncommon with severe types of seizures, especially capgras type delusions. Medications may not be as effective, also considering extend of brain atrophy. pending collateral information from OP psychiatrist. 05/12: continue current medications. 05/13: No changes to meds, pt on 1:1 for seizures, falls 05/14: Per team, pt has had multiple falls this weekend, seem to be increasing in frequency. Consulted with pharmacist to rule out drug interactions with anti-epileptics and to review meds that lower seizure threshold, will decrease abilify back to 20 mg to see if this helps. 05/15: restart phenobarb 60 mg QHS per neuro; the medication was apparently discontinued in the days prior to the present stay. T/C a different neuroleptic from abilify, as it has not appeared to have helped her at dosing up to 30 mg (however briefly at 30 mg). had 2 falls/Sz yesterday, one involving head trauma requiring 6 jakub. 05/16: no change in presentation. DC abilify as failed med trial, start haldol 5 BID. phenobarbital 60 mg started last evening per neuro rec. 05/17 continue current medications. 05/18: no seizures the past two days, apparently. not sedated. remains floridly psychotic and disorganized. increase haldol to 7.5 BID. discussing dispo possibilities with pt's daughter, who is her healthcare proxy. 05/19 continue current medications. 05/20: Continue current regimen and plans 05/21: Continue current regimen and plans 05/22 continue current tx. I spent minutes with the patient and/or on the patient floor today, greater than?50% of which was spent counseling/coordinating care. Reason for contiued inpatient stay Substantial Risk for: harm to others and inability to function
[2022-05-22 21:00] VITALS: BP 113/59; PULSE 78; RESP 18; TEMP 36.7; O2SAT 98
[2022-05-22] MEDS: PHENobarbitaL 30 MG TABLET 60 MG PO (22:02)
--- NOTE | 2022-05-22 22:02 | PM.EVENT ---
Event Note Date of Service: 05/22/22 Event Note: Evening of 05/22/22: ED provider removed jakub, surrounding skin intact, no redness, no edema, no ecchymosis, no drainage noted. Pt tolerated procedure. Area cleaned with normal saline, dried, bacitracin applied, non-adherent dressing used, pt denies pain.?
[2022-05-23] MEDS: Dicyclomine HCl 10 MG CAPSULE PO ×4 (06:31→21:35)
[2022-05-23] MEDS: Docusate Sodium 100 MG CAPSULE PO ×2 (06:31→21:34)
[2022-05-23] MEDS: cloBAZam 10 MG TABLET PO ×2 (06:31→21:34)
[2022-05-23] MEDS: HaloperidoL 5 MG TABLET 7.5 MG PO ×2 (06:32→21:35)
[2022-05-23] MEDS: Omeprazole 20 MG CAPSULE.DR PO (06:32)
[2022-05-23] MEDS: Magnesium Oxide 400 MG TABLET PO (06:32)
--- NOTE | 2022-05-23 09:36 | HO.PSYCHPN ---
Subjective Subjective Date of Service: 05/23/22 Reason For Visit: psychosis Subjective Notes: 3 Day Interim History: Pt reports she is sleeping well. Pt not reporting that man coming at night and cutting her hair. She is in agreement to see her OP providers and not concern about them being impostors. She denies SI/HI. No behavioral concerns. daughter in agreement to d/c tomorrow as pt appears better. Medication Compliance: Yes Side effects from medications: No Review of Systems Review of Systems CVS: No c/o chest pain, palpitations, no SOB SLEEVER: No c/o dizziness, headache GI: No c/o Nausea, Vomiting, diarrhea, constipation or heartburn Yes unobtainable due to endotracheal tube and Unobtainable due to mental status Mental Status Exam Mental Status Exam Narrative: Appearance: casually groomed, fair hygiene in NAD Behavior:cooperative psychomotor: no agitation or retardation noted Speech:some stutter, brief mumbles at times, soft tone, spontaneous Thought process:some derailment, but able to respond most questions appropriately Thought content:less paranoid towards providers, does not think male came last night, but wants to go home Mood: okay Affect: constricted SI:denies HI:denies VH/AH:appears internally preoccupied Delusions:less paranoid delusions Insight/judgment:impaired x 2. Memory/cog: alert, oriented to place, not situation, nor month/year. Diagnostics Vital Signs (24Hr): Vital Signs - 24 hr 05/23/22 10:49 05/23/22 21:35 05/24/22 09:13 Temperature 97.9 F 97.9 F 98.1 F Pulse Rate 81 103 H 83 Respiratory Rate 17 16 Blood Pressure 124/65 113/69 120/71 Pulse Oximetry 99 95 98 Oxygen Delivery Method Room Air Room Air Room Air BMI result Body Mass Index 30.7 Labs Results: 04/28/22 22:32 04/29/22 12:09 Imaging Radiology Impressions: ITS Impressions Head CT 05/14/22 19:45 IMPRESSION: No acute intracranial process seen. Left parietal encephalomalacia with overlying craniotomy change. It is stable compared to previous study 01/30/2022 Abdomen/Pelvis CT 05/14/22 22:00 IMPRESSION: Evaluation of acute traumatic sequela is limited due to motion and lack of intravenous contrast. Additionally, evaluation of spinal fractures is limited in the absence of thin section, high resolution reconstruction targeted images of the spine. Accounting for these limitations, no discrete acute traumatic sequela is noted. Cholelithiasis but no evidence of acute cholecystitis. Sub-2 mm pulmonary nodules are indeterminate. Assuming patient has no history of malignancy, recommend follow-up per Fleischner Society recommendations. According to the UPDATED 2017 Fleischner Society recommendations, the advised followup imaging for solid nodules < 6 mm is: LOW RISK PATIENT: No routine follow up. HIGH RISK PATIENT: Optional CT at [address] 05/14/22 22:00 IMPRESSION: No acute cervical spine fracture or malalignment. Cervical spondylosis. Chronic postoperative changes in the soft tissues of the left neck. Periapical lucencies noted. Recommend dental referral. Chest CT 05/14/22 22:00 IMPRESSION: Evaluation of acute traumatic sequela is limited due to motion and lack of intravenous contrast. Additionally, evaluation of spinal fractures is limited in the absence of thin section, high resolution reconstruction targeted images of the spine. Accounting for these limitations, no discrete acute traumatic sequela is noted. Cholelithiasis but no evidence of acute cholecystitis. Sub-2 mm pulmonary nodules are indeterminate. Assuming patient has no history of malignancy, recommend follow-up per Fleischner Society recommendations. According to the UPDATED 2017 Fleischner Society recommendations, the advised followup imaging for solid nodules < 6 mm is: LOW RISK PATIENT: No routine follow up. HIGH RISK PATIENT: Optional CT at 12 months. Shoulder X-Ray 05/15/22 08:45 IMPRESSION: No acute fracture or dislocation of the right shoulder. Old fracture deformity with bony union. Medications Medications Current Medications Acetaminophen (Acetaminophen 325 Mg Tablet) 650 mg PO Q6H PRN PRN Reason: Headache/Pain Mild Scale (1-3) Last Admin: 05/15/22 16:55 Dose: 650 mg Al Hydroxide/Mg Hydroxide (Magnesium Hydrox/Alum Hydrox 30 Ml Oral.Susp) 30 ml PO Q6H PRN PRN Reason: Heartburn/Nausea Clobazam (Clobazam 10 Mg Tablet) 10 mg PO BID@0700,2100 [facility] Last Admin: 05/24/22 06:37 Dose: 10 mg Dicyclomine HCl (Dicyclomine Hcl 10 Mg Capsule) 10 mg PO TID@0700,1200,1600 [facility] Last Admin: 05/24/22 06:37 Dose: 10 mg Dicyclomine HCl (Dicyclomine Hcl 10 Mg Capsule) 10 mg PO BEDTIME [facility] Last Admin: 05/23/22 21:35 Dose: 10 mg Docusate Sodium (Docusate Sodium 100 Mg Capsule) 100 mg PO BID@07,2099 [facility] Last Admin: 05/24/22 06:37 Dose: 100 mg Haloperidol (Haloperidol 5 Mg Tablet) 7.5 mg PO BID@07,2099 [facility] Last Admin: 05/24/22 06:36 Dose: 7.5 mg Hydroxyzine HCl (Hydroxyzine Hcl 25 Mg Tablet) 25 mg PO Q6H PRN PRN Reason: Anxiety Last Admin: 05/11/22 16:43 Dose: 25 mg Loperamide HCl (Loperamide Hcl 2 Mg Capsule) 2 mg PO Q6H PRN PRN Reason: diarrhea Last Admin: 05/11/22 16:42 Dose: 2 mg Magnesium Hydroxide (Milk Of Magnesia 30 Ml Oral.Susp) 30 ml PO DAILY PRN PRN Reason: Constipation Last Admin: 05/06/22 09:42 Dose: 30 ml Magnesium Oxide (Magnesium Oxide 400 Mg Tablet) 400 mg PO DAILY@07 [facility] Last Admin: 05/24/22 06:37 Dose: 400 mg Pt Own (Cenobamate [ (Xcopri] 1 Tab)) 1 tab PO DAILY@699 [facility] Last Admin: 05/24/22 06:37 Dose: 1 tab Pt Own ( Eslicarbazepine [ Aptiom] 300 Mg) 300 mg PO BID@07,2099 [facility]; Protocol Last Admin: 05/24/22 06:37 Dose: 300 mg Olanzapine (Olanzapine 5 Mg Tablet) 5 mg PO Q4H PRN PRN Reason: psychotic Omeprazole (Omeprazole 20 Mg Capsule.Dr) 20 mg PO DAILY@629 [facility] Last Admin: 05/24/22 06:37 Dose: 20 mg Phenobarbital (Phenobarbital 30 Mg Tablet) 60 mg PO BEDTIME [facility] Last Admin: 05/23/22 21:34 Dose: 60 mg Senna (Senna [place] Extract Oral Syrup 15 Ml Syrup) 15 ml PO BEDTIME [facility] Last Admin: 05/23/22 21:40 Dose: Not Given Trazodone HCl (Trazodone Hcl 50 Mg Tablet) 50 mg PO BEDTIME PRN PRN Reason: Insomnia Last Admin: 05/02/22 20:53 Dose: 50 mg Allergies Allergies Allergy/AdvReac Type Severity Reaction Status Date / Time Iodinated Contrast Media Allergy Intermediate RED ALL Verified 03/01/22 15:06 [IV Dye, Iodine Containing] OVER NAUSEA AND LOST RESPIRATIONS Penicillins [PENICILLINS] Allergy Intermediate Unknown Verified 03/01/22 15:06 phenytoin [From Dilantin] Allergy Intermediate gum Verified 03/01/22 15:06 swelling lamotrigine [From Lamictal] Allergy Unknown unknown Verified 03/01/22 15:06 Assessment & Plan Assessment & Plan (1) Delusional disorder: Status: Acute Code(s): F22 - Delusional disorders (2) Epilepsy: Qualifiers: Epilepsy type: partial symptomatic Partial seizure type: with complex partial seizures Intractability: intractable Status epilepticus: without status epilepticus Qualified Code(s): G40.219 - Localization-related (focal) (partial) symptomatic epilepsy and epileptic syndromes with complex partial seizures, intractable, without status epilepticus Status: Acute Code(s): G40.909 - Epilepsy, unspecified, not intractable, without status epilepticus Assessment and Plan: per 05/15 neuro consult: She will continue to have Sz frequently every week and has failed all meds and combinations, VNS and 2 surgical interventions. Mainstay of treatment is injury protection. Continue her 4 anticonvulsants: Clobazam 10mg bid, Xcopri 150mg qd, Aptiom 600mg 1/2 tid, Phenobarbital 100mg hs Plan Nanci is a 56 y.o. Female who has a hx of depression, psychotic agitation, and paranoia in the context of long standing refractory epilepsy. Hx of aphasia. Hx of multiple inpatient admissions for depression, psychotic sx, and paranoia. Pt has been on risperdal since 2018, however recently dose was lowered due to brief invega sustenna trial and risperdal was D.C?d in 01/2022 due to lethargy in the context of polypharm. 05/01: consider trial on abilify or vraylar, as these are less sedating antipsychotics. Will start olanzapine 5 mg QHS PRN for psychosis, agitation. 05/02: Rxed abilify, which pt states she will not take. quite ill: paranoid, delusional, strikingly disorganized and tangential. 05/03: took abilify last night. less disorganized and tangential. continue current regimen. 05/04: no change in presentation. increase abilify to 10 mg BID. 05/05: no change in presentation, continue current mgmt. 05/07/2022: No changes to current treatment. Abilify just increased on 05/04/2022. 05/08: continue current medications. 05/09: continue current medications- pt continues to present with paranoia and capgras delusions. 05/10: increase abilify to 30mg po daily- will do once daily dosing, especially as she may decline night time medications. 05/11: collateral info gathered from daughter who reports delusions in past 4 year- not uncommon with severe types of seizures, especially capgras type delusions. Medications may not be as effective, also considering extend of brain atrophy. pending collateral information from OP psychiatrist. 05/12: continue current medications. 05/13: No changes to meds, pt on 1:1 for seizures, falls 05/14: Per team, pt has had multiple falls this weekend, seem to be increasing in frequency. Consulted with pharmacist to rule out drug interactions with anti-epileptics and to review meds that lower seizure threshold, will decrease abilify back to 20 mg to see if this helps. 05/15: restart phenobarb 60 mg QHS per neuro; the medication was apparently discontinued in the days prior to the present stay. T/C a different neuroleptic from abilify, as it has not appeared to have helped her at dosing up to 30 mg (however briefly at 30 mg). had 2 falls/Sz yesterday, one involving head trauma requiring 6 jakub. 05/16: no change in presentation. DC abilify as failed med trial, start haldol 5 BID. phenobarbital 60 mg started last evening per neuro rec. 05/17 continue current medications. 05/18: no seizures the past two days, apparently. not sedated. remains floridly psychotic and disorganized. increase haldol to 7.5 BID. discussing dispo possibilities with pt's daughter, who is her healthcare proxy. 05/19 continue current medications. 05/20: Continue current regimen and plans 05/21: Continue current regimen and plans 05/22 continue current tx. 05/23 continue current tx. I spent _25 minutes with the patient and/or on the patient floor today, greater than?50% of which was spent counseling/coordinating care. Reason for contiued inpatient stay Substantial Risk for: stable for discharge
[2022-05-23 10:49] VITALS: BP 124/65; PULSE 81; RESP 17; TEMP 36.6; O2SAT 99
[2022-05-23] MEDS: PHENobarbitaL 30 MG TABLET 60 MG PO (21:34)
[2022-05-23 21:35] VITALS: BP 113/69; PULSE 103; RESP 16; TEMP 36.6; O2SAT 95
[2022-05-24] MEDS: HaloperidoL 5 MG TABLET 7.5 MG PO (06:36)
[2022-05-24] MEDS: Magnesium Oxide 400 MG TABLET PO (06:37)
[2022-05-24] MEDS: Dicyclomine HCl 10 MG CAPSULE PO (06:37)
[2022-05-24] MEDS: cloBAZam 10 MG TABLET PO (06:37)
[2022-05-24] MEDS: Docusate Sodium 100 MG CAPSULE PO (06:37)
[2022-05-24] MEDS: Omeprazole 20 MG CAPSULE.DR PO (06:37)
[2022-05-24 09:13] VITALS: BP 120/71; PULSE 83; TEMP 36.7; O2SAT 98
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
== END 2022-05-24 11:15 | disposition home health service (06) | DRG 885 ==
LOC: HO.ED 22:47 → HO.PADLT16 05-01 13:45
PROVIDERS: Emergency Medicine; Hospitalist; Nurse Practitioner Family; Admitting Provider Psychiatry & Neurology Psychiatry; Emergency Provider Student in an Organized Health Care Education/Training Program; PCP Internal Medicine; Visit Provider Psychiatry & Neurology Psychiatry
DX: F22 Delusional disorders (principal); G40.219 Localization-related (focal) (partial) symptomatic epilepsy and epileptic syndromes with complex partial seizures, intractable, without status epilepticus; K21.9 Gastro-esophageal reflux disease without esophagitis; S01.01XA Laceration without foreign body of scalp, initial encounter; W18.2XXA Fall in (into) shower or empty bathtub, initial encounter; Z20.822 Contact with and (suspected) exposure to COVID-19; Z91.14 Patient's other noncompliance with medication regimen; Z98.51 Tubal ligation status; Z91.041 Radiographic dye allergy status; Z88.0 Allergy status to penicillin; Z79.899 Other long term (current) drug therapy
CPT/HCPCS: 36415; 70450; 71250; 72125; 73030; 74176; 80053; 80307; 81001; 84484; 85025; 87086; 87635; 93005; 99285

== ENCOUNTER 2022-09-28 11:10 | Outpatient (REF) | payer MEDICARE, MEDICAID, SELFPAY ==
--- NOTE | ~2022-09-28 | MM_ITS ---
EXAMINATION: MM SCREENING DIGITAL BREAST TOMOSYNTHESIS, BILATERAL CLINICAL INFORMATION: Screening. Asymptomatic. The lifetime risk of breast cancer based on the Tyrer-Cuzick Model is 6%. COMPARISON: Mammography: 07/24/2016, 03/31/2014, 11/14/2011 TECHNIQUE: Digital breast tomosynthesis is performed in both the craniocaudal and mediolateral oblique views along with computer-aided detection (CAD). Synthesized 2D images are generated from the tomosynthesis. FINDINGS: There are scattered areas of fibroglandular density (ACR BI-RADS breast composition Category b). There are no significant masses, abnormal calcifications, or other abnormalities. Parenchymal pattern is similar to prior exams. No developing density. There is a pacemaker generator overlying the mid upper left axilla on MLO view. MM/MM tomosynthesis screening BI IMPRESSION: No mammographic evidence of malignancy. ASSESSMENT: BI-RADS 2: Benign RECOMMENDATION: Routine annual mammography screening. This patient's information was entered into a reminder system with a target due date for their next mammogram.
== END 2022-09-28 11:11 | disposition home or self-care (01) ==
LOC: HO.MAMMO 11:10
PROVIDERS: PCP Internal Medicine; Visit Provider Advanced Practice Midwife
DX: Z12.31 Encounter for screening mammogram for malignant neoplasm of breast (principal)
CPT/HCPCS: 77063; 77067

== ENCOUNTER 2022-11-20 12:12 | Emergency (ER) | payer MEDICARE, MEDICAID, SELFPAY ==
--- NOTE | ~2022-11-20 | XR_ITS ---
EXAMINATION: XR CHEST CLINICAL INFORMATION: Chest pain. COMPARISON: Chest radiographs 01/30/2022, 07/30/2021 TECHNIQUE: 2 views of the chest were obtained. FINDINGS: The lungs are clear. There is no pneumothorax or pneumomediastinum. No lobar or segmental airspace consolidation or groundglass opacity or effusion. The heart is normal in size. The costophrenic sulci are clear. The hilar and mediastinal contours are normal. There is a dextrocurvature again seen mid thoracic spine. Stimulation lead overlies left neck with generator overlying left chest. XR/XR chest 2V IMPRESSION: Lungs clear. No acute intrathoracic disease.
[2022-11-20 12:20] VITALS: BP 128/72; PULSE 85
--- NOTE | 2022-11-20 12:33 | ED.CHESTPAIN ---
HPI - Chest Pain General Chief Complaint: General Medical <JAYNA Wylie - Last Filed: 11/20/22 12:37> Stated Complaint: chest tightness <JAYNA Wylie Last Filed: 11/20/22 12:37> Time Seen by Provider: 11/20/22 16:36 <JAYNA Wylie - Last Filed: 11/20/22 12:37> Source: patient <JAYNA Keita Last Filed: 11/20/22 18:46> Mode of arrival: ambulatory <JAYNA Keita Last Filed: 11/20/22 18:46> History of Present Illness HPI narrative: 56-year-old female with a past medical history of refractory seizures, falls, GERD, encephalomalacia, toxic metabolic encephalopathy, presenting to the ED complaining of chest pain beginning this morning around 11:00 with associated SOB. Reports symptoms resolved at present. Most history obtained from daughter due to patient's baseline mental status. Daughter also reports diarrhea. Patient reports mentally patient is at her baseline. Denies fever, chills, abdominal pain, nausea/vomiting <JAYNA Keita Last Filed: 11/20/22 18:46> MD complaint: chest discomfort <JAYNA Keita Last Filed: 11/20/22 18:46> Onset (ago): hour(s) <JAYNA Keita Last Filed: 11/20/22 18:46> Related Data Home Medications: Home Medications Medication Instructions Recorded Confirmed cenobamate 150 mg tablet (Xcopri) 1 tab PO DAILY 04/28/22 04/28/22 clobazam 10 mg tablet 1 tab PO BID 04/28/22 04/28/22 dicyclomine 10 mg capsule 1 cap PO QID 04/28/22 04/28/22 eslicarbazepine 600 mg tablet 300 mg PO BID 04/28/22 04/29/22 (Aptiom) pantoprazole 40 mg tablet,delayed 1 tab PO DAILY 04/28/22 04/28/22 release sucralfate 1 gram tablet 2 tab PO DAILY 04/28/22 04/28/22 Previous Rx's Medication Instructions Recorded diaper,brief,adult,disposable #10 ea 03/03/21 blood pressure monitor #1 ea 03/01/22 docusate sodium 100 mg capsule 100 mg PO BID@0700,2100 #30 caps 05/24/22 haloperidol 10 mg tablet 10 mg PO BEDTIME #30 tabs 05/24/22 haloperidol 5 mg tablet 5 mg PO DAILY #30 tabs 05/24/22 phenobarbital 30 mg tablet 60 mg PO BEDTIME #60 tabs 05/24/22 trazodone 50 mg tablet 50 mg PO BEDTIME PRN Insomnia #30 05/24/22 tabs magnesium oxide 400 mg (241.3 mg 400 mg PO DAILY@0700 #30 tabs 10/07/22 magnesium) tablet <JAYNA Wylie Last Filed: 11/20/22 12:37> Allergies/Adverse Reactions: Allergies Allergy/AdvReac Type Severity Reaction Status Date / Time Iodinated Contrast Media Allergy Intermediate RED ALL Verified 09/05/22 09:06 [IV Dye, Iodine Containing] OVER NAUSEA AND LOST RESPIRATIONS Penicillins [PENICILLINS] Allergy Intermediate Unknown Verified 09/05/22 09:06 phenytoin [From Dilantin] Allergy Intermediate gum Verified 09/05/22 09:06 swelling lamotrigine [From Lamictal] Allergy Unknown unknown Verified 09/05/22 09:06 <JAYNA Wlyie Last Filed: 11/20/22 12:37> Review of Systems Review of Systems: Constitutional: No Fever, No Chills, No Fatigue, No Malaise Cardiovascular: + Chest Pain, + SOB, No Edema, No Palpitations Respiratory: No Cough, No Sputum, No Dyspnea Gastrointestinal: No Nausea, No Vomiting, + Diarrhea, No Constipation, No Abdominal pain Genitourinary: No Dysuria ROS limited secondary to patient's baseline mental status <JAYNA Keita Last Filed: 11/20/22 18:46> Yes all other systems are reviewed and are negative <JAYNA Keita Last Filed: 11/20/22 18:46> Constitutional: Constitutional: Reports as per HPI <JAYNA Keita Last Filed: 11/20/22 18:46> [facility] Past Medical History Attestation statement: The following information was validated with the patient. <JAYNA Keita Last Filed: 11/20/22 18:46> Medical History: Medical History Burn injury Class 1 obesity due to excess calories with body mass index (BMI) of 30.0 to 30.9 in adult Depression Encephalomalacia Epilepsy Epilepsy Expressive aphasia Gait instability GERD (gastroesophageal reflux disease) Hyponatremia Hypotension Mild recurrent major depression Overactive bladder Polyarthralgia Pre-op evaluation Pre-op examination Screening for cervical cancer Seizures Unsteady gait Urge urinary incontinence Urinary incontinence <JAYNA Wylie - Last Filed: 11/20/22 12:37> Surgical History: Surgical History H/O prior ablation treatment History of section History of skin graft History of tubal ligation History of tumor Surgical history unknown <JAYNA Wylie - Last Filed: 11/20/22 12:37> Family History Family History: Family History Father Heart problem Mother Diabetes Low blood pressure Family/Other Substance use disorder Mental health disorder <JAYNA Wylie - Last Filed: 11/20/22 12:37> Social History Social History: Social History Household Members: Children Housing: House Do you presently have visiting nurse or other home services: Yes Unable to assess alcohol history related to: Refusing to respond Alcohol intake: never Patient Tobacco Use Status: Never used Tobacco e-Cigarette/Vaping Use: Never Used Second Hand Smoke Exposure: No Advance Directives: Yes Advance Directives Information Provided: No Advance Directives on File: No Advance Directives Date on File: 04/19/21 service: No Current occupational status: disabled Current occupation: rt handed Sexual orientation: Straight/Heterosexual Gender identity: Female Cognitive needs: Yes (walker) Hearing needs: No Vision needs: Yes (glasses) <JAYNA Wylie - Last Filed: 11/20/22 12:37> Physical Exam Vital Signs: Vital Signs: Last Vital Signs Temp 97.8 F 11/20/22 17:41 Pulse 72 11/20/22 17:41 Resp 16 11/20/22 17:41 BP 137/77 11/20/22 17:41 Pulse Ox 100 11/20/22 17:41 O2 Del Method 11/20/22 17:41 BMI result Body Mass Index 27.4 <JAYNA Wylie - Last Filed: 11/20/22 12:37> Vital Signs: Last Vital Signs Temp 97.8 F 11/20/22 17:41 Pulse 72 11/20/22 17:41 Resp 16 11/20/22 17:41 BP 137/77 11/20/22 17:41 Pulse Ox 100 11/20/22 17:41 O2 Del Method 11/20/22 17:41 BMI result Body Mass Index 27.4 <JAYNA Keita - Last Filed: 11/20/22 18:46> Vital Signs: Last Vital Signs Temp 97.8 F 11/20/22 17:41 Pulse 72 11/20/22 17:41 Resp 16 11/20/22 17:41 BP 137/77 11/20/22 17:41 Pulse Ox 100 11/20/22 17:41 O2 Del Method 11/20/22 17:41 BMI result Body Mass Index 27.4 <JAYNA Jimenez - Last Filed: 11/20/22 19:15> Const: General: cooperative, healthy appearing and no acute distress <JAYNA Keita - Last Filed: 11/20/22 18:46> Orientation/consciousness: oriented to person and oriented to place <JAYNA Keita - Last Filed: 11/20/22 18:46> Limitations: no limitations <JAYNA Keita Last Filed: 11/20/22 18:46> HEENT: Head: Yes normal to inspection and Yes atraumatic <JAYNA Keita - Last Filed: 11/20/22 18:46> Ears: hearing grossly normal bilaterally <JAYNA Keita - Last Filed: 11/20/22 18:46> General nose exam: Normal external nose present <JAYNA Keita - Last Filed: 11/20/22 18:46> Face and sinus: Yes normal facial exam <JAYNA Keita - Last Filed: 11/20/22 18:46> Throat: Yes posterior oropharynx normal <JAYNA Keita - Last Filed: 11/20/22 18:46> Eyes: General: appearance normal, both eyes and all related structures <Jeni Magaña PA - Last Filed: 11/20/22 18:46> EOM: EOMs intact bilaterally <Jeni Magaña PA - Last Filed: 11/20/22 18:46> Neck: Neck: Yes normal visual inspection and Yes no meningeal signs <Jeni Magaña PA - Last Filed: 11/20/22 18:46> Resp: Effort & Inspection: normal respiratory effort and no respiratory distress <Jeni Laynevani PA - Last Filed: 11/20/22 18:46> Auscultation: clear to auscultation bilaterally, no rales, no rhonchi and no wheezes <Jeni Magaña PA - Last Filed: 11/20/22 18:46> Cardio: Rate: regular rate <Jeni Magaña PA - Last Filed: 11/20/22 18:46> Heart sounds: S1 normal heart sound present and S2 normal heart sound present <Jeni Magaña PA - Last Filed: 11/20/22 18:46> GI: Inspection: Yes normal to inspection <Jeni Magaña PA - Last Filed: 11/20/22 18:46> Palpation (GI): Soft to palpation, nontender, no guarding and not rigid <Jeni Magaña PA - Last Filed: 11/20/22 18:46> : General: Yes no CVA tenderness <Jeni Magaña PA - Last Filed: 11/20/22 18:46> Back/Spine/Pelvis: Back: no CVA tenderness <Jeni Magaña PA - Last Filed: 11/20/22 18:46> Skin: Rashes: no rashes <Jeni Magaña PA - Last Filed: 11/20/22 18:46> Wounds: no wounds <Jeni Poulvani PA - Last Filed: 11/20/22 18:46> Neuro: General: oriented to person, oriented to place, tone normal and no meningeal signs <Jeni Magaña PA - Last Filed: 11/20/22 18:46> Gait exam (Neuro): Normal gait present <Jeni Pouliot, PA - Last Filed: 11/20/22 18:46> Extrem: General: Yes normal to inspection, Yes no pedal edema and Yes no calf tenderness <JAYNA Keita - Last Filed: 11/20/22 18:46> Course Course Course Narrative: RME - 56 yo F, with a past medical history of delusional disorder, toxic metabolic encephalopathy presenting today for evaluation of chest pain which started today. Pt is a poor historian and unable to answer further questions. VSS in triage. Patient stable to return to the waiting room until treatment room become avaliable. Plan: Labs, ekg, chest xray ordered. <JAYNA Wylie - Last Filed: 11/20/22 12:37> RME - 56 yo F, with a past medical history of delusional disorder, toxic metabolic encephalopathy presenting today for evaluation of chest pain which started today. Pt is a poor historian and unable to answer further questions. VSS in triage. Patient stable to return to the waiting room until treatment room become avaliable. Plan: Labs, ekg, chest xray ordered. -1718--chest x-ray unremarkable magnesium slightly low at 1.5 p.o. repletion ordered. Initial troponin negative will obtain 3 hour repeat. AST/ALT elevated > abdomen soft and nontender -184--2nd troponin equivocal, mi unlikely, BNP WNL -1842-- ED care transferred to JAYNA Brown pending UA and anticipated discharge <JAYNA Keita - Last Filed: 11/20/22 18:46> Reevaluation(s) Reevaluation #1: UA negative. No bacteria visualized. Educated patient on diagnosis and treatment plan, answered all question, patient verbalizes understanding. At this time patient will be discharged home, advised to return with new or worsening symptoms. Educated on worrisome signs and symptoms and when to return. At this time I feel comfortable discharge home. <JAYNA Jimenez - Last Filed: 11/20/22 19:15> Medical Decision Making Medical Decision Making MDM Narrative: 56-year-old female with a past medical history of refractory seizures, falls, GERD, encephalomalacia, toxic metabolic encephalopathy, presenting to the ED complaining of chest pain beginning this morning around 11:00AM with associated SOB. On exam vital signs stable, NAD, nontoxic appearing, asymptomatic at present, at baseline mental status per daughter. Concern for ACS. Rule out viral illness vs pneumonia. Low suspicion for PE/CHF Plan: EKG, labs, CXR, reassess Please refer to course for remaining clinical decision making, interpretation of labs/imaging results, and discussions with consultants and/or family members. <JAYNA Keita - Last Filed: 11/20/22 18:46> Differential Diagnosis Differential Diagnoses: The differential diagnosis associated with the presentation includes <JAYNA Keita - Last Filed: 11/20/22 18:46> As above <JAYNA Keita - Last Filed: 11/20/22 18:46> Admission/Observation Consideration of admission/observation: Escalation of care including admission/observation considered <JAYNA Keita - Last Filed: 11/20/22 18:46> Lab Data MDM Lab Attestation statement: I reviewed the patient's lab results. <JAYNA Keita - Last Filed: 11/20/22 18:46> Result Diagrams: 11/20/22 13:11 11/20/22 13:11 <JAYNA Wylie - Last Filed: 11/20/22 12:37> Labs: Lab Results 11/20/22 11/20/22 11/20/22 Range/Units 13:11 13:11 13:11 WBC 7.9 (4.8-10.8) X10*3/uL RBC 3.88 L (4.20-5.50) X10*6/uL Hgb 12.2 (12.0-16.0) g/dl Hct 36.2 L (37.0-47.0) % MCV 93.3 (80.0-98.0) fL MCH 31.4 (27.0-33.0) pg MCHC 33.7 (31.0-35.0) g/dl RDW 13.1 (11.0-16.0) % Plt Count 214 (160-400) X10*3/uL MPV 9.4 (9.4-12.3) fL Immature Gran % (Auto) 0.3 (0.0-0.4) % Neut % (Auto) 81.3 H (45-73) % Lymph % (Auto) 10.9 L (20-40) % [place] % (Auto) 5.7 (2-11) % Eos % (Auto) 1.3 (0-4) % Baso % (Auto) 0.5 (0-2) % Lymph # (Auto) 0.9 L (1.2-4.9) X10*3/uL [place] # (Auto) 0.5 (0.1-1.2) X10*3/uL Eos # (Auto) 0.1 (0.0-0.4) X10*3/uL Baso # (Auto) 0.0 (0.0-0.2) X10*3/uL Abs Immat Gran (auto) 0.02 (0.00-0.03) X10*3/uL Absolute Neuts (auto) 6.4 (2.0-8.3) x10*3/uL Absolute Nucleated RBC 0.000 (0.0-0.012) X10*3/uL Nucleated RBC % (auto) 0.0 (0.0-0.2) /100WBC Sodium 136 (135-145) mmol/L Potassium 4.3 (3.3-5.1) mmol/L Chloride 99 (96-108) mmol/L Carbon Dioxide 28 (22-29) mmol/L Anion Gap 13 (12-20) BUN 13 (9-16) mg/dL Creatinine 0.71 (0.5-1.4) mg/dL Estim Creat Clear Calc 88.4 Estimated GFR > 60 Random Glucose 92 (60-115) mg/dL Calcium 9.0 D (8.4-10.2) mg/dL Magnesium 1.5 L (1.6-2.6) mg/dL Total Bilirubin 0.2 (0.0-1.0) mg/dL Direct Bilirubin < 0.2 (0.0-0.5) mg/dL AST 101 H (5-31) U/L ALT 82 H (0-31) U/L Alkaline Phosphatase 110 (39-117) U/L Troponin I High Sens < 3.5 (<3.5-17.0) ng/L B-Natriuretic Peptide (<100) pg/mL Total Protein 7.4 (6.5-8.0) g/dL Albumin 4.1 (3.5-5.0) g/dL Urine Color Urine Appearance Urine pH (5.0-9.0) Ur Specific Jackson (1.005-1.025) Urine Protein (Neg-Trace) mg/dL Urine Glucose (UA) (Negative) mg/dL Urine Ketones (Negative) mg/dL Urine Blood (Negative) Urine Nitrite (Negative) Ur Leukocyte Esterase (Negative) Urine RBC (0-2) /HPF Urine WBC (0-5) /HPF Ur Squamous Epith Cells (0-2) /HPF Urine Bacteria (None Seen) Hyaline Casts (0-2) /LPF 11/20/22 11/20/22 11/20/22 Range/Units 17:49 17:49 18:47 WBC (4.8-10.8) X10*3/uL RBC (4.20-5.50) X10*6/uL Hgb (12.0-16.0) g/dl Hct (37.0-47.0) % MCV (80.0-98.0) fL MCH (27.0-33.0) pg MCHC (31.0-35.0) g/dl RDW (11.0-16.0) % Plt Count (160-400) X10*3/uL MPV (9.4-12.3) fL Immature Gran % (Auto) (0.0-0.4) % Neut % (Auto) (45-73) % Lymph % (Auto) (20-40) % [place] % (Auto) (2-11) % Eos % (Auto) (0-4) % Baso % (Auto) (0-2) % Lymph # (Auto) (1.2-4.9) X10*3/uL [place] # (Auto) (0.1-1.2) X10*3/uL Eos # (Auto) (0.0-0.4) X10*3/uL Baso # (Auto) (0.0-0.2) X10*3/uL Abs Immat Gran (auto) (0.00-0.03) X10*3/uL Absolute Neuts (auto) (2.0-8.3) x10*3/uL Absolute Nucleated RBC (0.0-0.012) X10*3/uL Nucleated RBC % (auto) (0.0-0.2) /100WBC Sodium (135-145) mmol/L Potassium (3.3-5.1) mmol/L Chloride (96-108) mmol/L Carbon Dioxide (22-29) mmol/L Anion Gap (12-20) BUN (9-16) mg/dL Creatinine (0.5-1.4) mg/dL Estim Creat Clear Calc Estimated GFR Random Glucose (60-115) mg/dL Calcium (8.4-10.2) mg/dL Magnesium (1.6-2.6) mg/dL Total Bilirubin (0.0-1.0) mg/dL Direct Bilirubin (0.0-0.5) mg/dL AST (5-31) U/L ALT (0-31) U/L Alkaline Phosphatase (39-117) U/L Troponin I High Sens < 3.5 (<3.5-17.0) ng/L B-Natriuretic Peptide 24 (<100) pg/mL Total Protein (6.5-8.0) g/dL Albumin (3.5-5.0) g/dL Urine Color Yellow Urine Appearance Clear Urine pH 6.5 (5.0-9.0) Ur Specific Jackson 1.015 (1.005-1.025) Urine Protein Negative (Neg-Trace) mg/dL Urine Glucose (UA) Negative (Negative) mg/dL Urine Ketones Negative (Negative) mg/dL Urine Blood Negative (Negative) Urine Nitrite Negative (Negative) Ur Leukocyte Esterase Moderate (2+) H (Negative) Urine RBC 0-2 (0-2) /HPF Urine WBC 21-50 H (0-5) /HPF Ur Squamous Epith Cells 0-2 (0-2) /HPF Urine Bacteria None Seen (None Seen) Hyaline Casts 0-2 (0-2) /LPF <JAYNA Wylie - Last Filed: 11/20/22 12:37> Lab Results 11/20/22 11/20/22 11/20/22 Range/Units 13:11 13:11 13:11 WBC 7.9 (4.8-10.8) X10*3/uL RBC 3.88 L (4.20-5.50) X10*6/uL Hgb 12.2 (12.0-16.0) g/dl Hct 36.2 L (37.0-47.0) % MCV 93.3 (80.0-98.0) fL MCH 31.4 (27.0-33.0) pg MCHC 33.7 (31.0-35.0) g/dl RDW 13.1 (11.0-16.0) % Plt Count 214 (160-400) X10*3/uL MPV 9.4 (9.4-12.3) fL Immature Gran % (Auto) 0.3 (0.0-0.4) % Neut % (Auto) 81.3 H (45-73) % Lymph % (Auto) 10.9 L (20-40) % [place] % (Auto) 5.7 (2-11) % Eos % (Auto) 1.3 (0-4) % Baso % (Auto) 0.5 (0-2) % Lymph # (Auto) 0.9 L (1.2-4.9) X10*3/uL [place] # (Auto) 0.5 (0.1-1.2) X10*3/uL Eos # (Auto) 0.1 (0.0-0.4) X10*3/uL Baso # (Auto) 0.0 (0.0-0.2) X10*3/uL Abs Immat Gran (auto) 0.02 (0.00-0.03) X10*3/uL Absolute Neuts (auto) 6.4 (2.0-8.3) x10*3/uL Absolute Nucleated RBC 0.000 (0.0-0.012) X10*3/uL Nucleated RBC % (auto) 0.0 (0.0-0.2) /100WBC Sodium 136 (135-145) mmol/L Potassium 4.3 (3.3-5.1) mmol/L Chloride 99 (96-108) mmol/L Carbon Dioxide 28 (22-29) mmol/L Anion Gap 13 (12-20) BUN 13 (9-16) mg/dL Creatinine 0.71 (0.5-1.4) mg/dL Estim Creat Clear Calc 88.4 Estimated GFR > 60 Random Glucose 92 (60-115) mg/dL Calcium 9.0 D (8.4-10.2) mg/dL Magnesium 1.5 L (1.6-2.6) mg/dL Total Bilirubin 0.2 (0.0-1.0) mg/dL Direct Bilirubin < 0.2 (0.0-0.5) mg/dL AST 101 H (5-31) U/L ALT 82 H (0-31) U/L Alkaline Phosphatase 110 (39-117) U/L Troponin I High Sens < 3.5 (<3.5-17.0) ng/L B-Natriuretic Peptide (<100) pg/mL Total Protein 7.4 (6.5-8.0) g/dL Albumin 4.1 (3.5-5.0) g/dL Urine Color Urine Appearance Urine pH (5.0-9.0) Ur Specific Jackson (1.005-1.025) Urine Protein (Neg-Trace) mg/dL Urine Glucose (UA) (Negative) mg/dL Urine Ketones (Negative) mg/dL Urine Blood (Negative) Urine Nitrite (Negative) Ur Leukocyte Esterase (Negative) Urine RBC (0-2) /HPF Urine WBC (0-5) /HPF Ur Squamous Epith Cells (0-2) /HPF Urine Bacteria (None Seen) Hyaline Casts (0-2) /LPF 11/20/22 11/20/22 11/20/22 Range/Units 17:49 17:49 18:47 WBC (4.8-10.8) X10*3/uL RBC (4.20-5.50) X10*6/uL Hgb (12.0-16.0) g/dl Hct (37.0-47.0) % MCV (80.0-98.0) fL MCH (27.0-33.0) pg MCHC (31.0-35.0) g/dl RDW (11.0-16.0) % Plt Count (160-400) X10*3/uL MPV (9.4-12.3) fL Immature Gran % (Auto) (0.0-0.4) % Neut % (Auto) (45-73) % Lymph % (Auto) (20-40) % [place] % (Auto) (2-11) % Eos % (Auto) (0-4) % Baso % (Auto) (0-2) % Lymph # (Auto) (1.2-4.9) X10*3/uL [place] # (Auto) (0.1-1.2) X10*3/uL Eos # (Auto) (0.0-0.4) X10*3/uL Baso # (Auto) (0.0-0.2) X10*3/uL Abs Immat Gran (auto) (0.00-0.03) X10*3/uL Absolute Neuts (auto) (2.0-8.3) x10*3/uL Absolute Nucleated RBC (0.0-0.012) X10*3/uL Nucleated RBC % (auto) (0.0-0.2) /100WBC Sodium (135-145) mmol/L Potassium (3.3-5.1) mmol/L Chloride (96-108) mmol/L Carbon Dioxide (22-29) mmol/L Anion Gap (12-20) BUN (9-16) mg/dL Creatinine (0.5-1.4) mg/dL Estim Creat Clear Calc Estimated GFR Random Glucose (60-115) mg/dL Calcium (8.4-10.2) mg/dL Magnesium (1.6-2.6) mg/dL Total Bilirubin (0.0-1.0) mg/dL Direct Bilirubin (0.0-0.5) mg/dL AST (5-31) U/L ALT (0-31) U/L Alkaline Phosphatase (39-117) U/L Troponin I High Sens < 3.5 (<3.5-17.0) ng/L B-Natriuretic Peptide 24 (<100) pg/mL Total Protein (6.5-8.0) g/dL Albumin (3.5-5.0) g/dL Urine Color Yellow Urine Appearance Clear Urine pH 6.5 (5.0-9.0) Ur Specific [place] 1.015 (1.005-1.025) Urine Protein Negative (Neg-Trace) mg/dL Urine Glucose (UA) Negative (Negative) mg/dL Urine Ketones Negative (Negative) mg/dL Urine Blood Negative (Negative) Urine Nitrite Negative (Negative) Ur Leukocyte Esterase Moderate (2+) H (Negative) Urine RBC 0-2 (0-2) /HPF Urine WBC 21-50 H (0-5) /HPF Ur Squamous Epith Cells 0-2 (0-2) /HPF Urine Bacteria None Seen (None Seen) Hyaline Casts 0-2 (0-2) /LPF <JAYNA Keita - Last Filed: 11/20/22 18:46> Lab Results 11/20/22 11/20/22 11/20/22 Range/Units 13:11 13:11 13:11 WBC 7.9 (4.8-10.8) X10*3/uL RBC 3.88 L (4.20-5.50) X10*6/uL Hgb 12.2 (12.0-16.0) g/dl Hct 36.2 L (37.0-47.0) % MCV 93.3 (80.0-98.0) fL MCH 31.4 (27.0-33.0) pg MCHC 33.7 (31.0-35.0) g/dl RDW 13.1 (11.0-16.0) % Plt Count 214 (160-400) X10*3/uL MPV 9.4 (9.4-12.3) fL Immature Gran % (Auto) 0.3 (0.0-0.4) % Neut % (Auto) 81.3 H (45-73) % Lymph % (Auto) 10.9 L (20-40) % [place] % (Auto) 5.7 (2-11) % Eos % (Auto) 1.3 (0-4) % Baso % (Auto) 0.5 (0-2) % Lymph # (Auto) 0.9 L (1.2-4.9) X10*3/uL [place] # (Auto) 0.5 (0.1-1.2) X10*3/uL Eos # (Auto) 0.1 (0.0-0.4) X10*3/uL Baso # (Auto) 0.0 (0.0-0.2) X10*3/uL Abs Immat Gran (auto) 0.02 (0.00-0.03) X10*3/uL Absolute Neuts (auto) 6.4 (2.0-8.3) x10*3/uL Absolute Nucleated RBC 0.000 (0.0-0.012) X10*3/uL Nucleated RBC % (auto) 0.0 (0.0-0.2) /100WBC Sodium 136 (135-145) mmol/L Potassium 4.3 (3.3-5.1) mmol/L Chloride 99 (96-108) mmol/L Carbon Dioxide 28 (22-29) mmol/L Anion Gap 13 (12-20) BUN 13 (9-16) mg/dL Creatinine 0.71 (0.5-1.4) mg/dL Estim Creat Clear Calc 88.4 Estimated GFR > 60 Random Glucose 92 (60-115) mg/dL Calcium 9.0 D (8.4-10.2) mg/dL Magnesium 1.5 L (1.6-2.6) mg/dL Total Bilirubin 0.2 (0.0-1.0) mg/dL Direct Bilirubin < 0.2 (0.0-0.5) mg/dL AST 101 H (5-31) U/L ALT 82 H (0-31) U/L Alkaline Phosphatase 110 (39-117) U/L Troponin I High Sens < 3.5 (<3.5-17.0) ng/L B-Natriuretic Peptide (<100) pg/mL Total Protein 7.4 (6.5-8.0) g/dL Albumin 4.1 (3.5-5.0) g/dL Urine Color Urine Appearance Urine pH (5.0-9.0) Ur Specific [place] (1.005-1.025) Urine Protein (Neg-Trace) mg/dL Urine Glucose (UA) (Negative) mg/dL Urine Ketones (Negative) mg/dL Urine Blood (Negative) Urine Nitrite (Negative) Ur Leukocyte Esterase (Negative) Urine RBC (0-2) /HPF Urine WBC (0-5) /HPF Ur Squamous Epith Cells (0-2) /HPF Urine Bacteria (None Seen) Hyaline Casts (0-2) /LPF 11/20/22 11/20/22 11/20/22 Range/Units 17:49 17:49 18:47 WBC (4.8-10.8) X10*3/uL RBC (4.20-5.50) X10*6/uL Hgb (12.0-16.0) g/dl Hct (37.0-47.0) % MCV (80.0-98.0) fL MCH (27.0-33.0) pg MCHC (31.0-35.0) g/dl RDW (11.0-16.0) % Plt Count (160-400) X10*3/uL MPV (9.4-12.3) fL Immature Gran % (Auto) (0.0-0.4) % Neut % (Auto) (45-73) % Lymph % (Auto) (20-40) % [place] % (Auto) (2-11) % Eos % (Auto) (0-4) % Baso % (Auto) (0-2) % Lymph # (Auto) (1.2-4.9) X10*3/uL [place] # (Auto) (0.1-1.2) X10*3/uL Eos # (Auto) (0.0-0.4) X10*3/uL Baso # (Auto) (0.0-0.2) X10*3/uL Abs Immat Gran (auto) (0.00-0.03) X10*3/uL Absolute Neuts (auto) (2.0-8.3) x10*3/uL Absolute Nucleated RBC (0.0-0.012) X10*3/uL Nucleated RBC % (auto) (0.0-0.2) /100WBC Sodium (135-145) mmol/L Potassium (3.3-5.1) mmol/L Chloride (96-108) mmol/L Carbon Dioxide (22-29) mmol/L Anion Gap (12-20) BUN (9-16) mg/dL Creatinine (0.5-1.4) mg/dL Estim Creat Clear Calc Estimated GFR Random Glucose (60-115) mg/dL Calcium (8.4-10.2) mg/dL Magnesium (1.6-2.6) mg/dL Total Bilirubin (0.0-1.0) mg/dL Direct Bilirubin (0.0-0.5) mg/dL AST (5-31) U/L ALT (0-31) U/L Alkaline Phosphatase (39-117) U/L Troponin I High Sens < 3.5 (<3.5-17.0) ng/L B-Natriuretic Peptide 24 (<100) pg/mL Total Protein (6.5-8.0) g/dL Albumin (3.5-5.0) g/dL Urine Color Yellow Urine Appearance Clear Urine pH 6.5 (5.0-9.0) Ur Specific Jackson 1.015 (1.005-1.025) Urine Protein Negative (Neg-Trace) mg/dL Urine Glucose (UA) Negative (Negative) mg/dL Urine Ketones Negative (Negative) mg/dL Urine Blood Negative (Negative) Urine Nitrite Negative (Negative) Ur Leukocyte Esterase Moderate (2+) H (Negative) Urine RBC 0-2 (0-2) /HPF Urine WBC 21-50 H (0-5) /HPF Ur Squamous Epith Cells 0-2 (0-2) /HPF Urine Bacteria None Seen (None Seen) Hyaline Casts 0-2 (0-2) /LPF <JAYNA Jimenez - Last Filed: 11/20/22 19:15> Independent Interpretation I performed an independent interpretation of an: EKG <JAYNA Keita - Last Filed: 11/20/22 18:46> Interpretation: My interpretation EKG is normal sinus rhythm at a rate of 78. W[place] interval 168. QTC 414 for no STEMI <JAYNA Keita Last Filed: 11/20/22 18:46> Radiology Impression Discussion of test interpretation with radiology: I have reviewed the radiologist's reading. <JAYNA Keita Last Filed: 11/20/22 18:46> Independent Historian Clinical information obtained from an independent historian. History obtained from or confirmed by: Other (Daughter) <JAYNA Keita Last Filed: 11/20/22 18:46> External Record Review External record reviewed: Office record, Outpatient record, Prior outpatient labs, Prior outpatient radiology, Primary care record and Outside ED record <JAYNA Keita Last Filed: 11/20/22 18:46> Chronic Conditions Patient?s care impacted by: Other <JAYNA Keita Last Filed: 11/20/22 18:46> Social Determinants Patient?s care significantly limited by Social Determinants of Health including: Other Social Determinant of Health <JAYNA Keita - Last Filed: 11/20/22 18:46> Discharge Plan Discharge Clinical Impression: Chest pain <JAYNA Wylie - Last Filed: 11/20/22 12:37> Patient Disposition: Still a Patient <JAYNA Wylie Last Filed: 11/20/22 12:37> Instructions: Chest Pain (DC) <JAYNA Wylie Last Filed: 11/20/22 12:37> Additional Instructions: Your blood work is reassuring. Her x-ray is unremarkable Follow-up with her doctor Continue home prescribed medications If symptoms persist or worsen return to the ED <JAYNA Wylie Last Filed: 11/20/22 12:37> Prescriptions: No Action magnesium oxide 400 mg (241.3 mg magnesium) tablet 400 mg PO DAILY@0700 Qty: 30 0RF sucralfate 1 gram tablet 2 tab PO DAILY pantoprazole 40 mg tablet,delayed release (DR/EC) 1 tab PO DAILY dicyclomine 10 mg capsule 1 cap PO QID clobazam 10 mg tablet 1 tab PO BID Aptiom 600 mg tablet 300 mg PO BID Xcopri 150 mg tablet 1 tab PO DAILY haloperidol 10 mg tablet 10 mg PO BEDTIME Qty: 30 0RF phenobarbital 30 mg Tablet 60 mg PO BEDTIME Qty: 60 0RF trazodone 50 mg Tablet 50 mg PO BEDTIME PRN (Reason: Insomnia) Qty: 30 0RF docusate sodium 100 mg Capsule 100 mg PO BID@0700,2100 Qty: 30 0RF haloperidol 5 mg tablet 5 mg PO DAILY Qty: 30 0RF (DME) diaper,brief,adult,disposable Misc See Rx Instructions .ROUTE .MEDSUPPLY Qty: 10 0RF Rx Instructions: As directed (DME) blood pressure monitor Kit See Rx Instructions .Route Qty: 1 0RF Rx Instructions: As directed <JAYNA Wylie Last Filed: 11/20/22 12:37> Referrals: [facility] [Primary Care Provider] - 3 days <JAYNA Wylie Last Filed: 11/20/22 12:37> Print Language: Kyrgyz <JAYNA Wylie Last Filed: 11/20/22 12:37>
[2022-11-20 12:34] VITALS: BP 114/74; PULSE 86; RESP 16; O2SAT 100; BMI 27.4
--- NOTE | 2022-11-20 12:35 | ECG_ITS ---
Test Reason : CHEST TIGHTNESS Blood Pressure : / mmHG Vent. Rate : 078 BPM Atrial Rate : 078 BPM P-R Int : 168 ms QRS Dur : 072 ms QT Int : 364 ms P-R-T Axes : 034 037 043 degrees QTc Int : 414 ms Normal sinus rhythm Normal ECG When compared with ECG of 14-MAY-2022 22:51, Nonspecific T wave abnormality now evident in Anterior leads Referred By: Renay Chaves Electronically Signed By:HUGO RODRIGUEZ MD
[2022-11-20 13:14] LABS: MANUAL DIFF FLAG NO
[2022-11-20 13:17] LABS: Basophils Percent Auto 0.5 % (0-2); Eosinophils Absolute Auto 0.1 X10*3/uL (0.0-0.4); Eosinophils Percent Auto 1.3 % (0-4); Hematocrit 36.2 % (37.0-47.0); Hemoglobin 12.2 g/dl (12.0-16.0); Imm Gran Abs Auto 0.02 X10*3/uL (0.00-0.03); Imm Gran Pct Auto 0.3 % (0.0-0.4); Lymphocytes Absolute Auto 0.9 X10*3/uL (1.2-4.9); Lymphocytes Percent Auto 10.9 % (20-40); Mean Corpuscular HGB Conc 33.7 g/dl (31.0-35.0); Mean Corpuscular Hemoglobin 31.4 pg (27.0-33.0); Mean Corpuscular Volume 93.3 fL (80.0-98.0); Mean Platelet Volume 9.4 fL (9.4-12.3); Monocytes Absolute Auto 0.5 X10*3/uL (0.1-1.2); Monocytes Percent Auto 5.7 % (2-11); Neutrophils Absolute Auto 6.4 x10*3/uL (2.0-8.3); Neutrophils Percent Auto 81.3 % (45-73); Platelet Count 214 X10*3/uL (160-400); Red Blood Count 3.88 X10*6/uL (4.20-5.50); Red Cell Distribution Width 13.1 % (11.0-16.0); White Blood Count 7.9 X10*3/uL (4.8-10.8)
[2022-11-20 13:36] LABS: Alanine Aminotransferase 82 U/L (0-31); Albumin Level 4.1 g/dL (3.5-5.0); Alkaline Phosphatase 110 U/L (39-117); Anion Gap 13 (12-20); Aspartate Amino Transferase 101 U/L (5-31); Bilirubin Direct < 0.2 mg/dL (0.0-0.5); Bilirubin Total 0.2 mg/dL (0.0-1.0); Blood Urea Nitrogen 13 mg/dL (9-16); Carbon Dioxide 28 mmol/L (22-29); Chloride 99 mmol/L (96-108); Creatinine Clr Calc Pharmacy 88.4; Estimated Glomerular Filt Rate > 60; Glucose Random 92 mg/dL (60-115); Magnesium 1.5 mg/dL (1.6-2.6); Potassium 4.3 mmol/L (3.3-5.1); Sodium 136 mmol/L (135-145); Total Protein 7.4 g/dL (6.5-8.0)
[2022-11-20 13:43] LABS: Troponin-I High Sensitivity < 3.5 ng/L (<3.5-17.0)
--- NOTE | 2022-11-20 15:23 | PC.NURSE ---
CALL DAUGHTER NANO [phone] FOR MORE DETAILS
[2022-11-20 17:41] VITALS: BP 137/77; PULSE 72; RESP 16; TEMP 36.6; O2SAT 100
[2022-11-20 18:15] LABS: B Type Natriuretic Peptide 24 pg/mL (<100)
[2022-11-20 18:16] LABS: Troponin-I High Sensitivity < 3.5 ng/L (<3.5-17.0)
[2022-11-20 19:01] LABS: Appearance Urine Clear; Color Urine Yellow; Glucose Urine UA Negative (Negative); Leukocyte Esterase Urine Moderate (2+) (Negative); Nitrite Urine Negative (Negative); PH 6.5 (5.0-9.0); Specific Gravity - Urine 1.015 (1.005-1.025); UMIC TRIGGER UACC YES; Urine Blood Negative (Negative); Urine Ketones Negative (Negative); Urine Protein Negative (Neg-Trace)
[2022-11-20 19:11] LABS: Bacteria Urine None Seen (None Seen); Hyaline Casts Urine 0-2 /LPF (0-2); RBC Urine 0-2 /HPF (0-2); Squamous Epithelial Cell Urine 0-2 /HPF (0-2); UACC Culture Trigger YES; WBC Urine 21-50 /HPF (0-5)
[2022-11-20 19:22] VITALS: BP 124/93; PULSE 70; RESP 16; TEMP 37.1; O2SAT 100
--- NOTE | 2022-11-20 19:56 | PC.NURSE ---
pt alert and at time confused, but redirected. Pt denies any sob or chest pain. Plan is for pt to be discharged home. Reviewed discharge instructions with pt and daughter. Both verblalized understanding. Will continue to monitor.
== END 2022-11-20 20:30 | disposition still patient (30) ==
PROVIDERS: Physician Assistant; Emergency Provider Emergency Medicine
DX: R07.9 Chest pain, unspecified (principal); R06.02 Shortness of breath; F22 Delusional disorders; Z79.899 Other long term (current) drug therapy
CPT/HCPCS: 36415; 51798; 71046; 80048; 80076; 81001; 81003; 83735; 83880; 84484; 85025; 87086; 93005; 99284

== ENCOUNTER 2022-12-07 10:49 | Outpatient (REF) | payer MEDICARE, MEDICAID, SELFPAY ==
[2022-12-07 12:51] LABS: Alanine Aminotransferase 47 U/L (0-31); Albumin Level 4.2 g/dL (3.5-5.0); Alkaline Phosphatase 98 U/L (39-117); Anion Gap 14 (12-20); Aspartate Amino Transferase 30 U/L (5-31); Bilirubin Total 0.2 mg/dL (0.0-1.0); Blood Urea Nitrogen 26 mg/dL (9-16); Calcium 9.1 mg/dL (8.4-10.2); Carbon Dioxide 29 mmol/L (22-29); Chloride 101 mmol/L (96-108); Estimated Glomerular Filt Rate > 60; Glucose Random 74 mg/dL (60-115); Magnesium 1.8 mg/dL (1.6-2.6); Potassium 4.8 mmol/L (3.3-5.1); Sodium 139 mmol/L (135-145); Total Protein 7.3 g/dL (6.5-8.0)
== END 2022-12-07 10:50 | disposition home or self-care (01) ==
LOC: HO.LAB 10:49
PROVIDERS: PCP Nurse Practitioner Family; Visit Provider Nurse Practitioner Family
DX: E83.42 Hypomagnesemia (principal); R79.89 Other specified abnormal findings of blood chemistry
CPT/HCPCS: 36415; 80053; 83735

== ENCOUNTER → 2023-01-02 13:36 | Outpatient (BNVA) | payer MEDICARE, MEDICAID, SELFPAY | PROVIDERS: PCP Internal Medicine; Referring Provider Internal Medicine; Visit Provider Nurse Practitioner | DX: K58.0 Irritable bowel syndrome with diarrhea (principal); K21.9 Gastro-esophageal reflux disease without esophagitis; G40.219 Localization-related (focal) (partial) symptomatic epilepsy and epileptic syndromes with complex partial seizures, intractable, without status epilepticus; R40.0 Somnolence; F22 Delusional disorders | CPT/HCPCS: 99212 ==

== ENCOUNTER 2023-01-03 12:20 | Observation (INO) | payer MEDICARE, MEDICAID, SELFPAY ==
--- NOTE | ~2023-01-03 | CT_ITS ---
EXAMINATION: CT HEAD WITHOUT CONTRAST CLINICAL INFORMATION: Slurred speech and drowsiness COMPARISON: Previous head CT scans most recent April 2022 TECHNIQUE: Contiguous axial imaging was performed from the skull base to vertex without intravenous administration of contrast. This CT examination was performed using dose optimization techniques as appropriate, variously including the following: *Automated exposure control *Adjustment of mA and/or kV according to patient size (this includes techniques or standardized protocols for targeted exams where dose is matched to indication/reason for exam; i.e. extremities or head) *Use of iterative reconstruction technique DLP: 570 mGy-cm FINDINGS: There is no evidence of an extra-axial collection. There is no evidence of intra-axial or extra-axial hemorrhage. The ventricles and extra-axial CSF spaces are appropriate. There is a large area of low attenuation in the left posterior parietal lobe that is stable suggestive of encephalomalacia. Vasquez-white matter differentiation is otherwise normal. No mass, mass effect or acute infarct is seen. There are postsurgical changes to the overlying parietal bone. Bony structures are otherwise normal. No skull fracture. Visualized paranasal sinuses, mastoid air cells and middle ears are clear. CT/CT head/brain wo IV con IMPRESSION: No acute findings. Left parietal bone craniotomy and underlying parietal lobe encephalomalacia similar to previous exams.
--- NOTE | ~2023-01-03 | XR_ITS ---
EXAMINATION: XR CHEST CLINICAL INFORMATION: Cough. Mental status change. COMPARISON: Previous chest x-ray October 2022 TECHNIQUE: Frontal view of the chest was obtained. FINDINGS: No significant abnormality is noted involving the heart, lungs, mediastinum, bony thorax or soft tissues. Battery and leads in the left chest going toward the left neck unchanged. XR/XR chest 1V IMPRESSION: No evidence for acute disease in the chest.
[2023-01-03 12:43] VITALS: BP 123/73; BP 127/53; PULSE 80; RESP 18; TEMP 36.7; O2SAT 98; BMI 31.3
--- NOTE | 2023-01-03 12:50 | ECG_ITS ---
Test Reason : ams Blood Pressure : / mmHG Vent. Rate : 071 BPM Atrial Rate : 071 BPM P-R Int : 150 ms QRS Dur : 068 ms QT Int : 372 ms P-R-T Axes : 001 017 016 degrees QTc Int : 404 ms Normal sinus rhythm Normal ECG When compared with ECG of 20-NOV-2022 13:40, No significant change was found Referred By: Gardenia Figueroa Electronically Signed By:HUGO RODRIGUEZ MD
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
[2023-01-03 13:41] LABS: COVID-19 Test Negative (Negative); IDNOW Serial# 08D9AD1C
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
[2023-01-03 14:27] LABS: MANUAL DIFF FLAG NO
[2023-01-03 14:28] LABS: Prothrombin Time 11.8 SEC (10.0-13.1)
[2023-01-03 14:30] LABS: Partial Thromboplastin Time 33.3 SEC (26.0-36.4)
[2023-01-03 14:30] LABS: Basophils Absolute Auto 0.1 X10*3/uL (0.0-0.2); Eosinophils Absolute Auto 0.2 X10*3/uL (0.0-0.4); Eosinophils Percent Auto 3.5 % (0-4); Hematocrit 39.6 % (37.0-47.0); Hemoglobin 12.9 g/dl (12.0-16.0); Imm Gran Abs Auto 0.02 X10*3/uL (0.00-0.03); Imm Gran Pct Auto 0.4 % (0.0-0.4); Lymphocytes Absolute Auto 1.6 X10*3/uL (1.2-4.9); Lymphocytes Percent Auto 32.3 % (20-40); Mean Corpuscular HGB Conc 32.6 g/dl (31.0-35.0); Mean Corpuscular Hemoglobin 31.4 pg (27.0-33.0); Mean Corpuscular Volume 96.4 fL (80.0-98.0); Mean Platelet Volume 9.2 fL (9.4-12.3); Monocytes Absolute Auto 0.4 X10*3/uL (0.1-1.2); Monocytes Percent Auto 7.9 % (2-11); Neutrophils Absolute Auto 2.7 x10*3/uL (2.0-8.3); Neutrophils Percent Auto 54.9 % (45-73); Platelet Count 240 X10*3/uL (160-400); Red Blood Count 4.11 X10*6/uL (4.20-5.50); Red Cell Distribution Width 13.4 % (11.0-16.0); White Blood Count 4.9 X10*3/uL (4.8-10.8)
[2023-01-03 14:31] LABS: Stroke Lab Use COMPLETE
[2023-01-03 14:36] LABS: Ammonia 56 umol/L (13-55)
[2023-01-03 14:41] LABS: Alanine Aminotransferase 119 U/L (0-31); Albumin Level 4.5 g/dL (3.5-5.0); Alkaline Phosphatase 117 U/L (39-117); Anion Gap 14 (12-20); Aspartate Amino Transferase 68 U/L (5-31); Bilirubin Direct 0.1 mg/dL (0.0-0.5); Bilirubin Total 0.3 mg/dL (0.0-1.0); Blood Urea Nitrogen 19 mg/dL (9-16); Calcium 9.8 mg/dL (8.4-10.2); Carbon Dioxide 29 mmol/L (22-29); Chloride 105 mmol/L (96-108); Creatinine Clr Calc Pharmacy 102.1; Estimated Glomerular Filt Rate > 60; Glucose Random 82 mg/dL (60-115); Magnesium 2.1 mg/dL (1.6-2.6); Potassium 4.7 mmol/L (3.3-5.1); Sodium 143 mmol/L (135-145); Total Protein 8.3 g/dL (6.5-8.0)
[2023-01-03 14:48] LABS: Ethanol < 10 mg/dL
[2023-01-03 14:51] LABS: Troponin-I High Sensitivity < 2.7 ng/L (<3.5-17.0)
[2023-01-03 15:05] LABS: TSH reflex Free T4 1.03 uIU/mL (0.32-4.0)
[2023-01-03 15:15] VITALS: BP 132/74; PULSE 66; TEMP 36.5; O2SAT 99
--- NOTE | 2023-01-03 15:43 | PC.NURSE ---
Pt on stretcher semi-fowlers airway open and patent, no difficulty breathing. 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 Patient is alert and oriented to person and place. skin normal for ethnicity, warm, and dry. Equal chest rise and fall, Lung sounds clr on left, slight rhonchi on right. Heart sounds normal. Bowel sounds present all cameron, abdomen soft, non-tender. No edema noted. Pt speech very garbled, manager gas unable to understand patient. Neuros intact. Pt denies any pain.
[2023-01-03] MEDS: Dextrose 5 % and 0.45 % NaCl 1,000 ML 125 ML IVCONT ×2 (16:22→23:34)
[2023-01-03 16:33] LABS: Influenza A PCR NEGATIVE (Negative); Influenza B PCR NEGATIVE (Negative); Resp Syncy Virus RNA Qual PCR NEGATIVE (Negative); SARS COV2 PCR INHOUSE NEGATIVE (Negative)
[2023-01-03 16:42] LABS: Appearance Urine Cloudy; Color Urine Dark Yellow; Glucose Urine UA Negative (Negative); Leukocyte Esterase Urine Moderate (2+) (Negative); Nitrite Urine Positive (Negative); Specific Gravity - Urine 1.025 (1.005-1.025); UMIC TRIGGER UACC YES; Urine Blood Negative (Negative); Urine Ketones Negative (Negative); Urine Protein Negative (Neg-Trace)
[2023-01-03 16:45] LABS: Bacteria Urine 4+ (None Seen); Hyaline Casts Urine 0-2 /LPF (0-2); RBC Urine 0-2 /HPF (0-2); UACC Culture Trigger YES
[2023-01-03 16:50] LABS: Amphetamine Screen Urine Not Detected (Not Detect); Barbiturates, Urine POSITIVE (Not Detect); Benzodiazepines Screen Urine POSITIVE (Not Detect); Cannabinoid Screen Urine Not Detected (Not Detect); Cocaine Screen Urine Not Detected (Not Detect); Fentanyl, urine Not Detected (Not Detect); Opiate Screen Urine Not Detected (Not Detect); Phencyclidine Screen Urine Not Detected (Not Detect)
[2023-01-03 16:54] LABS: Glucose, Whole Blood 72 mg/dL (60-115)
--- NOTE | 2023-01-03 17:09 | PM.IMHP ---
History of Present Illness Date of Service: 01/03/23 Attending physician on admission: [facility] Chief Complaint: lethargy, slurred speech, cough 57-year-old female with history of epilepsy, encephalomalacia, expressive aphasia, gait instability, toxic metabolic encephalopathy, hypothyroidism, delusional disorder, and depression presented to the ED earlier today via EMS for evaluation of cough, lethargy, and slurred speech per her daughter. The pt has a long history of psychiatric and neurological issues with recurrent psychosis, slow mentation/speech, and intermittent confusion per her daughter. Per her daughter, the patient has been more tired and lethargic x 2 weeks but mental status is baseline. However, she has felt her speech has been a little slurred as well. She states the patient choked while eating a piece of bread yesterday and has been coughing since which is unlike her. Pt is not the best historian at baseline but is able to answer simple yes/no questions and denies any fevers, chills, sore throat, dysphagia, abd pain, n/v/d, shortness of breath or chest pain. Her daughter reports haldol dose was increased to 10mg 2 weeks ago but then reduced again to 5mg several days ago. On arrival, VSS. Hematology studies unremarkable. Renal function and electrolyte levels normal. AST 68, ALT 119, total bilirubin and direct bilirubin within normal limits. Ammonia level 56. CK 142. Troponin unremarkable. TSH 1.03. UA with 3+ leuks, +nitrites, +urinary sediment, 4+ bacteria. UC pending. Head CT with any acute intracranial abnormality but showing left parietal bone craniotomy and underlying parietal lobe encephalomalacia similar to prior exams. CXR negative for any acute cardiopulmonary abnormality. In the ED, given IVF. Pt seen and evaluated using swedish interpretor and additional history also taken from pt daughter, Hamida. Review of Systems Review of Systems: Yes Unobtainable due to mental condition and Unobtainable due to mental status [facility] Medical History Burn injury Class 1 obesity due to excess calories with body mass index (BMI) of 30.0 to 30.9 in adult Delusional disorder Depression Encephalomalacia Epilepsy Expressive aphasia Gait instability GERD (gastroesophageal reflux disease) Hypomagnesemia Hyponatremia Hypotension IBS (irritable bowel syndrome) Mild recurrent major depression Overactive bladder Polyarthralgia Pre-op evaluation Pre-op examination Screening for cervical cancer Seizures Unsteady gait Urge urinary incontinence Urinary incontinence Family History Father Heart problem Mother Diabetes Low blood pressure Family/Other Substance use disorder Mental health disorder Surgical History H/O prior ablation treatment History of section History of skin graft History of tubal ligation History of tumor Surgical history unknown Social History Household Members: Other Household Members Other:: with daughter Housing: Apartment Do you presently have visiting nurse or other home services: Yes Unable to assess alcohol history related to: Refusing to respond Alcohol intake: never Patient Tobacco Use Status: Never used Tobacco Smoked in Last 30 Days: No e-Cigarette/Vaping Use: Never Used Second Hand Smoke Exposure: No Use of substances other than those prescribed or required for medical reasons: No Currently Displaying Signs/Symptoms of Drug Intoxication Withdrawal: No Any prior treatment program specific to substance use: No Have you been hit, kicked, punched, or otherwise hurt by someone within the past year? If so, by whom?: No Is there a partner from a previous relationship who is making you feel unsafe now?: No Are you made to feel afraid or neglected: No Advance Directives: No Advance Directives Date on File: 04/19/21 Do you have thoughts of harming others: None Do you have a plan to hurt others: No Plan Recently lost weight without trying: Unsure Nutrition Risks: Difficulty swallowing Patient : No : No Poor oral hygiene: No service: No Current occupational status: disabled Current occupation: rt handed Sexual orientation: Straight/Heterosexual Gender identity: Female Cognitive needs: Yes (walker) Hearing needs: No Vision needs: Yes (glasses) Meds Allergies Allergy/AdvReac Type Severity Reaction Status Date / Time Iodinated Contrast Media Allergy Intermediate RED ALL Verified 01/02/23 13:47 [IV Dye, Iodine Containing] OVER NAUSEA AND LOST RESPIRATIONS Penicillins [PENICILLINS] Allergy Intermediate Unknown Verified 01/02/23 13:47 phenytoin [From Dilantin] Allergy Intermediate gum Verified 01/02/23 13:47 swelling lamotrigine [From Lamictal] Allergy Unknown unknown Verified 01/02/23 13:47 Active Medications: Current Medications Acetaminophen (Acetaminophen 325 Mg Tablet) 650 mg PO Q6H PRN PRN Reason: Pain, Mild (Pain Scale 1-3) Docusate Sodium (Docusate Sodium 100 Mg Capsule) 100 mg PO DAILY PRN PRN Reason: Constipation Enoxaparin Sodium (Enoxaparin Sodium 40 Mg/0.4 Ml Syringe) 40 mg SUBCUT Q24H [facility] Dextrose/Sodium Chloride (D51/2ns) 1,000 mls @ 125 mls/hr IVCONT .Q8H [facility] Last Admin: 01/03/23 16:22 Dose: 125 mls/hr Ondansetron HCl (Ondansetron Hcl 4 Mg/2 Ml Vial) 4 mg IVPUSH Q8H PRN PRN Reason: Nausea and Vomiting Pharmacy Consult (Consult Rx Perform Med Rec) 1 each MISCELLANE ONCE PRN PRN Reason: Consult order Sodium Chloride (0.9 % Sodium Chloride Flush 3 Ml Syringe) 3 ml IVFLUSH QSHIFT [facility] Home Medications Medication Instructions Recorded Confirmed Last Taken Type cenobamate 150 mg tablet (Xcopri) 1 tab PO DAILY 04/28/22 01/03/23 01/03/23 History clobazam 10 mg tablet 1 tab PO BID 04/28/22 01/03/23 01/03/23 History pantoprazole 40 mg tablet,delayed 1 tab PO DAILY 04/28/22 01/03/23 01/03/23 History release cranberry extract 250 mg capsule 250 mg PO DAILY 01/03/23 01/03/23 01/03/23 History dicyclomine 10 mg capsule 20 mg PO BID 01/03/23 01/03/23 01/03/23 History eslicarbazepine 400 mg tablet 800 mg PO BID 01/03/23 01/03/23 01/03/23 History (Aptiom) haloperidol 5 mg tablet 5 mg PO BID 01/03/23 01/03/23 01/03/23 History multivitamin 1 tab PO DAILY 01/03/23 01/03/23 01/03/23 History sucralfate 1 gram tablet 2 g PO DAILY@1600 01/03/23 01/03/23 Unknown History Physical Exam Vital Signs and Narrative: Vital Signs: Last Vital Signs Temp 97.7 F 01/03/23 15:15 Pulse 66 01/03/23 15:15 Resp 18 01/03/23 12:43 BP 132/74 01/03/23 15:15 Pulse Ox 99 01/03/23 15:15 O2 Del Method Room Air 01/03/23 15:15 BMI result Body Mass Index 31.3 Constitutional - Awake and Alert, No apparent distress Eyes - PERRLA, EOMI Cardiovascular - S1S2, RRR, No edema Respiratory - Normal lung expansion, Normal respiratory effort, No respiratory distress, CTA bilaterally Gastrointestinal - NT / ND; +BS; No rebound or guarding - No CVA tenderness Extremities - no calf tenderness bilaterally, no swelling Skin - Warm/Dry Neurological - Alert & oriented x2, intermittently confused but able to answer simple questions, CN II-XII in tact, 5/5 strength BUE and BLE Results Labs 01/03/23 14:18 01/03/23 14:04 Labs: Laboratory Results - last 24 hr 01/03/23 01/03/23 01/03/23 13:19 14:04 14:04 MCV MCH MCHC RDW Plt Count MPV Immature Gran % (Auto) Neut % (Auto) Lymph % (Auto) [place] % (Auto) Eos % (Auto) Baso % (Auto) Lymph # (Auto) [place] # (Auto) Eos # (Auto) Baso # (Auto) Abs Immat Gran (auto) Absolute Neuts (auto) Absolute Nucleated RBC Nucleated RBC % (auto) PT 11.8 INR 1.0 APTT 33.3 Anion Gap 14 Estim Creat Clear Calc 102.1 Estimated GFR > 60 POC Glucose Random Glucose 82 Lactic Acid Calcium 9.8 D Magnesium 2.1 Total Bilirubin 0.3 Direct Bilirubin 0.1 AST 68 H ALT 119 H Alkaline Phosphatase 117 Ammonia Total Creatine Kinase 142 H Troponin I High Sens Total Protein 8.3 H Albumin 4.5 TSH Urine Color Urine Appearance Urine pH Ur Specific [place] Urine Protein Urine Glucose (UA) Urine Ketones Urine Blood Urine Nitrite Ur Leukocyte Esterase Urine RBC Urine WBC Ur Squamous Epith Cells Urine Bacteria Hyaline Casts Urine Opiates Screen Urine Fentanyl Screen Ur Barbiturates Screen Ur Phencyclidine Scrn Ur Amphetamines Screen U Benzodiazepines Scrn Urine Cocaine Screen U Marijuana (THC) Screen Ethyl Alcohol COVID-19 (MICHELLE) Negative COVID-19 Clin Com See Note Influenza Type A (PCR) Influenza Type B (PCR) RSV RNA Qual (PCR) SARS-CoV-2 RNA (RT-PCR) 01/03/23 01/03/23 01/03/23 14:04 14:04 14:18 MCV 96.4 MCH 31.4 MCHC 32.6 RDW 13.4 Plt Count 240 MPV 9.2 L Immature Gran % (Auto) 0.4 Neut % (Auto) 54.9 Lymph % (Auto) 32.3 [place] % (Auto) 7.9 Eos % (Auto) 3.5 Baso % (Auto) 1.0 Lymph # (Auto) 1.6 [place] # (Auto) 0.4 Eos # (Auto) 0.2 Baso # (Auto) 0.1 Abs Immat Gran (auto) 0.02 Absolute Neuts (auto) 2.7 Absolute Nucleated RBC 0.000 Nucleated RBC % (auto) 0.0 PT INR APTT Anion Gap Estim Creat Clear Calc Estimated GFR POC Glucose Random Glucose Lactic Acid 1.0 Calcium Magnesium Total Bilirubin Direct Bilirubin AST ALT Alkaline Phosphatase Ammonia Total Creatine Kinase Troponin I High Sens Total Protein Albumin TSH Urine Color Urine Appearance Urine pH Ur Specific [place] Urine Protein Urine Glucose (UA) Urine Ketones Urine Blood Urine Nitrite Ur Leukocyte Esterase Urine RBC Urine WBC Ur Squamous Epith Cells Urine Bacteria Hyaline Casts Urine Opiates Screen Urine Fentanyl Screen Ur Barbiturates Screen Ur Phencyclidine Scrn Ur Amphetamines Screen U Benzodiazepines Scrn Urine Cocaine Screen U Marijuana (THC) Screen Ethyl Alcohol COVID-19 (MICHELLE) COVID-19 Clin Com Influenza Type A (PCR) NEGATIVE Influenza Type B (PCR) NEGATIVE RSV RNA Qual (PCR) NEGATIVE SARS-CoV-2 RNA (RT-PCR) NEGATIVE 01/03/23 01/03/23 01/03/23 14:18 14:18 14:18 MCV MCH MCHC RDW Plt Count MPV Immature Gran % (Auto) Neut % (Auto) Lymph % (Auto) [place] % (Auto) Eos % (Auto) Baso % (Auto) Lymph # (Auto) [place] # (Auto) Eos # (Auto) Baso # (Auto) Abs Immat Gran (auto) Absolute Neuts (auto) Absolute Nucleated RBC Nucleated RBC % (auto) PT INR APTT Anion Gap Estim Creat Clear Calc Estimated GFR POC Glucose Random Glucose Lactic Acid Calcium Magnesium Total Bilirubin Direct Bilirubin AST ALT Alkaline Phosphatase Ammonia 56 H Total Creatine Kinase Troponin I High Sens < 2.7 Total Protein Albumin TSH 1.03 Urine Color Urine Appearance Urine pH Ur Specific [place] Urine Protein Urine Glucose (UA) Urine Ketones Urine Blood Urine Nitrite Ur Leukocyte Esterase Urine RBC Urine WBC Ur Squamous Epith Cells Urine Bacteria Hyaline Casts Urine Opiates Screen Urine Fentanyl Screen Ur Barbiturates Screen Ur Phencyclidine Scrn Ur Amphetamines Screen U Benzodiazepines Scrn Urine Cocaine Screen U Marijuana (THC) Screen Ethyl Alcohol < 10 COVID-19 (MICHELLE) COVID-19 Clin Com Influenza Type A (PCR) Influenza Type B (PCR) RSV RNA Qual (PCR) SARS-CoV-2 RNA (RT-PCR) 01/03/23 01/03/23 01/03/23 15:21 16:29 16:29 MCV MCH MCHC RDW Plt Count MPV Immature Gran % (Auto) Neut % (Auto) Lymph % (Auto) [place] % (Auto) Eos % (Auto) Baso % (Auto) Lymph # (Auto) [place] # (Auto) Eos # (Auto) Baso # (Auto) Abs Immat Gran (auto) Absolute Neuts (auto) Absolute Nucleated RBC Nucleated RBC % (auto) PT INR APTT Anion Gap Estim Creat Clear Calc Estimated GFR POC Glucose 72 Random Glucose Lactic Acid Calcium Magnesium Total Bilirubin Direct Bilirubin AST ALT Alkaline Phosphatase Ammonia Total Creatine Kinase Troponin I High Sens Total Protein Albumin TSH Urine Color Dark Yellow Urine Appearance Cloudy Urine pH 6.0 Ur Specific [place] 1.025 Urine Protein Negative Urine Glucose (UA) Negative Urine Ketones Negative Urine Blood Negative Urine Nitrite Positive H Ur Leukocyte Esterase Moderate (2+) H Urine RBC 0-2 Urine WBC 11-20 H Ur Squamous Epith Cells 3-5 Urine Bacteria 4+ Hyaline Casts 0-2 Urine Opiates Screen Not Detected Urine Fentanyl Screen Not Detected Ur Barbiturates Screen POSITIVE H Ur Phencyclidine Scrn Not Detected Ur Amphetamines Screen Not Detected U Benzodiazepines Scrn POSITIVE H Urine Cocaine Screen Not Detected U Marijuana (THC) Screen Not Detected Ethyl Alcohol COVID-19 (MICHELLE) COVID-19 Clin Com Influenza Type A (PCR) Influenza Type B (PCR) RSV RNA Qual (PCR) SARS-CoV-2 RNA (RT-PCR) Imaging Radiologist's Impressions: Impressions Chest X-Ray 01/03/23 13:35 IMPRESSION: No evidence for acute disease in the chest. Head CT 01/03/23 14:00 IMPRESSION: No acute findings. Left parietal bone craniotomy and underlying parietal lobe encephalomalacia similar to previous exams. Assessment and Plan (1) Slurred speech: Status: Acute (2) UTI (urinary tract infection): Qualifiers: Hematuria presence: without hematuria Urinary tract infection type: acute cystitis Qualified Code(s): N30.00 - Acute cystitis without hematuria Status: Acute Plan 57-year-old female with history of epilepsy, encephalomalacia, expressive aphasia, gait instability, toxic metabolic encephalopathy, hypothyroidism, delusional disorder, and depression to be observed for lethargy, slurred speech, and cough. #Slurred speech -Low suspicion for CVA without any other focal neuro deficits -Head CT negative -? medication related given increase in Haldol dose in combination with phenobarbitol -Appreciate psychiatric input -Has expressive aphasia at baseline #Acute UTI -UA with 3+ leuks, +nitrites, +urinary sediment, 4+ bacteria -No sepsis, no acute encephalopathy -Pt lethargy could be related to infection -1g IV ceftriaxone daily x 5 days (initiated 01/03) -Follow UC, BC #Cough -CXR negative for pneumonia. RSV, flu, covid-19 negative -Full resp panel pending -Nursing swallow eval ordered given report of choking at home -symptomatic management #Depression, psychotic aggitation, and paranoia in setting of Chronic encephalomalacia and refractory epilepsy -Has had multiple issues related to polypharmacy causing issues with lethargy -Continue current meds. Hold haldol at this time. -Following with neurology at both [facility] and [facility] and it is not felt to be related to anti-seizure medications -Given recent increase in haldol dose, just prior to onset of symptoms as above #Hypothyroidism -Euthyroid -continue levothyroxine #IBS -continue bentyl #GERD -continue sucralfate, ppi DVT prophylaxis- lovenox full code Time Spent With Patient Time: Total time managing care of this patient today ____ minutes. Quality Stroke Does the patient have a stroke diagnosis?: No VTE Prior VTE?: No VTE Risk Level:: Medical - moderate - high VTE Device Contraindication: Treatment Not Indicated VTE Drug Contraindication: N/A - Med Ordered
--- NOTE | 2023-01-03 17:43 | PHA.MEDREC ---
MED REC COMPLETE, SPOKE WITH DAUGHTER NANO Pharmacy Consult ? Medication Reconciliation Pharmacy has completed the medication reconciliation.
--- NOTE | 2023-01-03 18:16 | PC.NURSE ---
Phlebotomy contacted to get pt blood cultures prior to IV antibiotics due to pt being difficult stick.
--- NOTE | 2023-01-03 18:34 | PC.NURSE ---
RN report given to SCHUYLER Corrales.
[2023-01-03] MEDS: cefTRIAXone sodium 1 GM in 0.9 % Sodium Chloride 50 ML IV (19:05)
[2023-01-03] MEDS: Enoxaparin Sodium 40 MG/0.4 ML SYRINGE SUBCUT (19:05)
[2023-01-03 19:42] VITALS: BP 122/72; PULSE 66; RESP 18; TEMP 36.6; O2SAT 100
[2023-01-03 19:46] LABS: Glucose, Whole Blood 103 mg/dL (60-115)
[2023-01-03 20:37] VITALS: BP 143/69; PULSE 72; RESP 18; TEMP 36.1; O2SAT 100
--- NOTE | 2023-01-03 21:31 | PC.NURSE ---
Addendum entered by Savanna Del Rosario RN 01/03/23 21:33: will hold all hs meds per dr. Fitch will keep NPO Original Note: patient passed nursing swallowing eval,Dr. Fitch notified.
[2023-01-03 23:40] VITALS: BP 127/62; PULSE 64; RESP 18; TEMP 36.6; O2SAT 95
[2023-01-04 03:12] VITALS: BP 123/78; PULSE 61; RESP 14; TEMP 36.6; O2SAT 99
[2023-01-04 06:16] LABS: MANUAL DIFF FLAG NO
[2023-01-04 06:18] LABS: Basophils Percent Auto 0.9 % (0-2); Eosinophils Absolute Auto 0.2 X10*3/uL (0.0-0.4); Eosinophils Percent Auto 3.2 % (0-4); Hematocrit 33.4 % (37.0-47.0); Hemoglobin 11.1 g/dl (12.0-16.0); Imm Gran Abs Auto 0.02 X10*3/uL (0.00-0.03); Imm Gran Pct Auto 0.4 % (0.0-0.4); Lymphocytes Absolute Auto 2.2 X10*3/uL (1.2-4.9); Lymphocytes Percent Auto 47.9 % (20-40); Mean Corpuscular HGB Conc 33.2 g/dl (31.0-35.0); Mean Corpuscular Hemoglobin 31.3 pg (27.0-33.0); Mean Corpuscular Volume 94.1 fL (80.0-98.0); Mean Platelet Volume 9.5 fL (9.4-12.3); Monocytes Absolute Auto 0.3 X10*3/uL (0.1-1.2); Monocytes Percent Auto 7.3 % (2-11); Neutrophils Absolute Auto 1.9 x10*3/uL (2.0-8.3); Neutrophils Percent Auto 40.3 % (45-73); Platelet Count 234 X10*3/uL (160-400); Red Blood Count 3.55 X10*6/uL (4.20-5.50); White Blood Count 4.6 X10*3/uL (4.8-10.8)
[2023-01-04 06:38] LABS: Alanine Aminotransferase 83 U/L (0-31); Albumin Level 3.5 g/dL (3.5-5.0); Alkaline Phosphatase 94 U/L (39-117); Anion Gap 11 (12-20); Aspartate Amino Transferase 41 U/L (5-31); Bilirubin Total 0.3 mg/dL (0.0-1.0); Blood Urea Nitrogen 11 mg/dL (9-16); Calcium 8.6 mg/dL (8.4-10.2); Carbon Dioxide 29 mmol/L (22-29); Chloride 106 mmol/L (96-108); Creatinine Clr Calc Pharmacy 128.9; Estimated Glomerular Filt Rate > 60; Glucose Random 88 mg/dL (60-115); Potassium 3.9 mmol/L (3.3-5.1); Sodium 142 mmol/L (135-145); Total Protein 6.3 g/dL (6.5-8.0)
[2023-01-04 07:14] VITALS: BP 124/77; PULSE 70; RESP 18; TEMP 36.1; O2SAT 97
[2023-01-04] MEDS: Dextrose 5 % and 0.45 % NaCl 1,000 ML 125 ML IVCONT ×3 (08:28→23:46)
[2023-01-04] MEDS: 0.9 % Sodium Chloride Flush 3 ML SYRINGE IVFLUSH (08:30)
[2023-01-04 10:27] LABS: Adenovirus PCR Not Detected (Not Detect.); Bordetella parapertussis PCR Not Detected (Not Detect.); Bordetella pertussis PCR Not Detected (Not Detect.); Chlamydia pneumoniae PCR Not Detected (Not Detect.); Coronavirus 229E PCR Not Detected (Not Detect.); Coronavirus HKU1 PCR Not Detected (Not Detect.); Coronavirus NL63 PCR Not Detected (Not Detect.); Coronavirus OC43 PCR Not Detected (Not Detect.); SARS-CoV-2 PCR Not Detected (Not Detect.)
--- NOTE | 2023-01-04 10:27 | MHC.CM.PN ---
Addendum entered by Maci Triana 01/04/23 16:02: [facility] CORRECT NUMBER [phone] (PER [facility], THEY ARE NOT AFFILIATED) MESSAGE LEFT FOR [facility] [place], ARIANNA, TO RETURN CALL TO VERIFY HER STATUS WITH THEM. Addendum entered by Maci Triana 01/04/23 15:50: PER DAUGHTER, PT GETS NURSING VISITS FROM [facility]) [phone] Original Note: MANDUJANO DELIVERED PT LIVES WITH DAUGHTER IN AN APT. INDEPENDENT WITH MOBILITY BUT HAS A BEDSIDE COMMODE AND MODIFIED BR. HAS 28.15 DAY HOURS OF TENT WORKER ASSIST/14 AT NIGHT. ACTIVE WITH [facility] FOR SN. +HCP ON FILE HERE PER DAUGHTER. COVID VAX X2 PCP DR. DORSEY DP: HOME WITH RESUMPTION OF SERVICES. RETURN REFERRAL SENT TO [facility]. DAUGHTER TO TRANSPORT HOME. CM WILL CONTINUE TO FOLLOW
[2023-01-04 10:28] LABS: Human metapneumovirus PCR Not Detected (Not Detect.); Influenza A PCR Not Detected (Not Detect.); Influenza B PCR Not Detected (Not Detect.); Mycoplasma pneumoniae PCR Not Detected (Not Detect.); Parainfluenza 1 PCR Not Detected (Not Detect.); Parainfluenza 2 PCR Not Detected (Not Detect.); Parainfluenza 3 PCR Not Detected (Not Detect.); Parainfluenza 4 PCR Not Detected (Not Detect.); RSV PCR Not Detected (Not Detect.); Rhino/Enterovirus PCR Detected (Not Detect.)
[2023-01-04] MEDS: cloBAZam 10 MG TABLET PO ×2 (10:51→20:37)
[2023-01-04] MEDS: Magnesium Oxide 400 MG TABLET PO (10:51)
[2023-01-04] MEDS: Dicyclomine HCl 10 MG CAPSULE 20 MG PO ×2 (10:51→20:37)
[2023-01-04] MEDS: Multivitamin TABLET 1 TAB PO (10:51)
--- NOTE | 2023-01-04 12:23 | MHC.SL.SWA ---
Speech Pathologist Impression: Oral phase dypshagia, risk of aspiration d/t confusion Risk of Aspiration Due to: Neurological Condition Reduced Cognition Dysphasia Diet Status: Upgrade from NPO to NDD3/thin Liquid Consistency and Strategies for Safe Swallow: Liquid Intake Recommendation: Thin Liquid Intake Strategies: Small Sips No Straws Solid Food Consistency: Dietary Recommendations: Chopped/Advanced (NDD3) Additional Modifications to Solid Foods: Recommend UPGRADE from NPO to CHOPPED/ADVANCED (NDD3) diet with THIN liquids, pills CRUSHED in PUREE. Pt is able to feed herself. D/t level of confusion, recommend 1:1 supervision and aspiration precautions. COUNTRY MANAGER to f/u 1x time. Oral Medication Intake: Crushed with Puree Please contact the pharmacy regarding appropriate crushable or liquid drug formulations that are available whenever modified delivery is recommended. Compensatory Strategies and Precautions to be Taken for Safe Swallow: Sitting Upright (90 deg) Double Swallow No Straw Small Bites and Sips Alternate Liquids/Solids Rate of Ingestion Change Avoid Specific Foods Supervision While Eating and Drinking for Safe Swallow: Total Supervision (1:1) Foods to Avoid: Hard, tough to chew solids or sticky textures Swallowing Recommended Treatments: Recommendation for Speech: Inpatient Speech Therapy Comment: 1 f/u [place] Clinican/Clinical Fellow: No Supervisory Statement: I have reviewed and agree with the student/clinical fellow's documentation: N/A Speech Language Pathologist: Kayce Chavarria M.A., [facility]-COUNTRY MANAGER
[2023-01-04 15:27] VITALS: BP 123/73; PULSE 69; RESP 18; TEMP 36; O2SAT 90
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
[2023-01-04] MEDS: Sucralfate 1 GM TABLET 2 GM PO (15:41)
--- NOTE | 2023-01-04 17:09 | HO.PM.IMPN ---
Subjective Subjective Date of Service: 01/05/23 Interval History: More alert, at baseline mental according to those who know her, feeding self up and ambulating Physical Exam Vital Signs: Vital Signs: Last Vital Signs Temp 96.8 F 01/04/23 15:27 Pulse 69 01/04/23 15:27 Resp 18 01/04/23 15:27 BP 123/73 01/04/23 15:27 Pulse Ox 90 L 01/04/23 15:27 O2 Del Method Room Air 01/04/23 15:27 BMI result Body Mass Index 31.3 Const: Other: General: AO X , no acute distress Resp: CTA bilateral Heent: tongue doesn't look swollen to me CVS: S1,S2,RRR GI: +BS, NT, no distention Skin: No rash Neuro: motor grossly intact Psych: appropriate affect Objective Data Active Medications Acetaminophen (Acetaminophen 325 Mg Tablet) 650 mg PO Q6H PRN PRN Reason: Pain, Mild (Pain Scale 1-3) Clobazam (Clobazam 10 Mg Tablet) 10 mg PO BID [facility] Last Admin: 01/04/23 10:51 Dose: 10 mg Documented By: SEBASTIAN Dicyclomine HCl (Dicyclomine Hcl 10 Mg Capsule) 20 mg PO BID [facility] Last Admin: 01/04/23 10:51 Dose: 20 mg Documented By: SEBASTIAN Docusate Sodium (Docusate Sodium 100 Mg Capsule) 100 mg PO DAILY PRN PRN Reason: Constipation Enoxaparin Sodium (Enoxaparin Sodium 40 Mg/0.4 Ml Syringe) 40 mg SUBCUT Q24H [facility] Last Admin: 01/03/23 19:05 Dose: 40 mg Documented By: LUIS Guaifenesin (Guaifenesin 200 Mg/10 Ml 10 Ml Liquid) 10 ml PO Q6H PRN PRN Reason: Cough Dextrose/Sodium Chloride (D51/2ns) 1,000 mls @ 125 mls/hr IVCONT .Q8H [facility] Last Admin: 01/04/23 15:39 Dose: 125 mls/hr Documented By: MICHAEL Ceftriaxone Sodium 1 gm/ (Sodium Chloride) 50 mls @ 100 mls/hr IV Q24H [facility] Last Infusion: 01/03/23 20:13 Dose: 0 mls/hr Documented By: LUIS Magnesium Oxide (Magnesium Oxide 400 Mg Tablet) 400 mg PO DAILY@0700 [facility] Last Admin: 01/04/23 10:51 Dose: 400 mg Documented By: SEBASTIAN Multivitamins/Vitamin C (Multivitamin Tablet) 1 tab PO DAILY [facility] Last Admin: 01/04/23 10:51 Dose: 1 tab Documented By: SEBASTIAN Pt Own (Cenobamate [ Xcopri] 150 Mg Tablet) 1 tab PO DAILY [facility] Last Admin: 01/04/23 10:51 Dose: 1 tab Documented By: SEBASTIAN Pt Own ( Eslicarbazepine [ Aptiom] 400 Mg Tablet) 800 mg PO BID [facility] Last Admin: 01/04/23 10:52 Dose: 800 mg Documented By: SEBASTIAN Omeprazole (Omeprazole 20 Mg Capsule.) 20 mg PO DAILY@0630 [facility] Last Admin: 01/04/23 06:35 Dose: Not Given Documented By: GRETCHEN Non-Admin Reason: NPO Ondansetron HCl (Ondansetron Hcl 4 Mg/2 Ml Vial) 4 mg IVPUSH Q8H PRN PRN Reason: Nausea and Vomiting Pharmacy Consult (Consult Rx Perform Med Rec) 1 each MISCELLANE ONCE PRN PRN Reason: Consult order Phenobarbital (Phenobarbital 30 Mg Tablet) 60 mg PO BEDTIME [facility] Last Admin: 01/03/23 21:38 Dose: Not Given Documented By: MICHAEL Non-Admin Reason: hold per dr. Fitch NPO Sodium Chloride (0.9 % Sodium Chloride Flush 3 Ml Syringe) 3 ml IVFLUSH QSHIFT [facility] Last Admin: 01/04/23 15:39 Dose: Not Given Documented By: MICHAEL Non-Admin Reason: IV Running Sucralfate (Sucralfate 1 Gm Tablet) 2 gm PO DAILY@1600 [facility] Last Admin: 01/04/23 15:41 Dose: 2 gm Documented By: MICHAEL Labs 01/04/23 05:05 01/04/23 05:05 Labs: Laboratory Results - last 24 hr 01/03/23 01/03/23 01/04/23 18:37 19:39 05:05 MCV 94.1 MCH 31.3 MCHC 33.2 RDW 13.0 Plt Count 234 MPV 9.5 Immature Gran % (Auto) 0.4 Neut % (Auto) 40.3 L Lymph % (Auto) 47.9 H [place] % (Auto) 7.3 Eos % (Auto) 3.2 Baso % (Auto) 0.9 Lymph # (Auto) 2.2 [place] # (Auto) 0.3 Eos # (Auto) 0.2 Baso # (Auto) 0.0 Abs Immat Gran (auto) 0.02 Absolute Neuts (auto) 1.9 L Absolute Nucleated RBC 0.000 Nucleated RBC % (auto) 0.0 Anion Gap Estim Creat Clear Calc Estimated GFR POC Glucose 103 Random Glucose Calcium Total Bilirubin AST ALT Alkaline Phosphatase Total Protein Albumin Respiratory Panel Yost See Note Adenovirus (Rapid PCR) Not Detected B.pert (TEM-PCR) Not Detected B.parapertussis DNA PCR Not Detected C. pneumoniae DNA (PCR) Not Detected Coronavirus OC43 (PCR) Not Detected Coronavirus HKU1 (PCR) Not Detected Coronavirus 229E (PCR) Not Detected Coronavirus NL63 (PCR) Not Detected Human Metapneumovir PCR Not Detected Influenza A (RT-PCR) Not Detected Influenza B (RT-PCR) Not Detected M. pneumoniae (PCR) Not Detected Parainfluenza 1 (PCR) Not Detected Parainfluenza 2 (PCR) Not Detected Parainfluenza 3 (PCR) Not Detected Parainfluenza 4 (PCR) Not Detected RSV (PCR) Not Detected Entero/Rhino (PCR) Detected A SARS-CoV-2 RNA (RT-PCR) Not Detected 01/04/23 05:05 MCV MCH MCHC RDW Plt Count MPV Immature Gran % (Auto) Neut % (Auto) Lymph % (Auto) [place] % (Auto) Eos % (Auto) Baso % (Auto) Lymph # (Auto) [place] # (Auto) Eos # (Auto) Baso # (Auto) Abs Immat Gran (auto) Absolute Neuts (auto) Absolute Nucleated RBC Nucleated RBC % (auto) Anion Gap 11 L Estim Creat Clear Calc 128.9 Estimated GFR > 60 POC Glucose Random Glucose 88 Calcium 8.6 D Total Bilirubin 0.3 AST 41 H ALT 83 H Alkaline Phosphatase 94 Total Protein 6.3 L Albumin 3.5 Respiratory Panel [place] Adenovirus (Rapid PCR) B.pert (TEM-PCR) B.parapertussis DNA PCR C. pneumoniae DNA (PCR) Coronavirus OC43 (PCR) Coronavirus HKU1 (PCR) Coronavirus 229E (PCR) Coronavirus NL63 (PCR) Human Metapneumovir PCR Influenza A (RT-PCR) Influenza B (RT-PCR) M. pneumoniae (PCR) Parainfluenza 1 (PCR) Parainfluenza 2 (PCR) Parainfluenza 3 (PCR) Parainfluenza 4 (PCR) RSV (PCR) Entero/Rhino (PCR) SARS-CoV-2 RNA (RT-PCR) Microbiology Microbiology Results: Microbiology 01/03/23 Unknown Urine Culture - Preliminary Urine clean catch - Urine williamson top Gram negative michael Assessment and Plan (1) Encephalopathy acute: Status: Acute Plan 57-year-old female with history of epilepsy, encephalomalacia, expressive aphasia, gait instability, toxic metabolic encephalopathy, hypothyroidism, delusional disorder, and depression to be observed for lethargy, slurred speech, and cough. #Slurred speech -Low suspicion for CVA without any other focal neuro deficits -Head CT negative -? medication related given increase in Haldol dose in combination with phenobarbitol -Appreciate psychiatric input -Has expressive aphasia at baseline -back to baseline #Acute UTI--continue Ceftriaxone, wati for culture #Cough--intermittent, no PNA RSV, flu, covid-19 negative #Depression, psychotic aggitation, and paranoia in setting of Chronic encephalomalacia and refractory epilepsy -Has had multiple issues related to polypharmacy causing issues with lethargy -Continue current meds. Psycy to decide on changes -Following with neurology at both [facility] and [facility] and it is not felt to be related to anti-seizure medications #Hypothyroidism -Euthyroid -continue levothyroxine #IBS -continue bentyl #GERD -continue sucralfate, ppi DVT prophylaxis- lovenox full code need for inpatient: encephalopath Time Spent With Patient Time: Total time managing care of this patient today ____ minutes. Quality Stroke Does the patient have a stroke diagnosis?: No VTE Prior VTE?: No VTE Risk Level:: Medical - moderate - high VTE Device Contraindication: Treatment Not Indicated VTE Drug Contraindication: N/A - Med Ordered
[2023-01-04] MEDS: cefTRIAXone sodium 1 GM in 0.9 % Sodium Chloride 50 ML IV (17:19)
[2023-01-04] MEDS: Enoxaparin Sodium 40 MG/0.4 ML SYRINGE SUBCUT (17:20)
[2023-01-04] MEDS: PHENobarbitaL 30 MG TABLET 60 MG PO (20:37)
[2023-01-04 23:51] VITALS: BP 120/67; PULSE 69; RESP 18; TEMP 36.3; O2SAT 98
[2023-01-05 03:30] VITALS: BP 127/63; PULSE 65; RESP 14; TEMP 35.7; O2SAT 98
[2023-01-05] MEDS: Omeprazole 20 MG CAPSULE.DR PO (06:04)
[2023-01-05 07:33] VITALS: BP 146/82; PULSE 68; RESP 16; TEMP 36.4; O2SAT 98
--- NOTE | 2023-01-05 08:30 | P.DS_ITS ---
DS: Providers Provider Date of Service: 01/05/23 Date of admission: 01/03/23 17:03 Primary care physician: [facility] Consults: 01/03/23 17:03 Consult to Psychiatry Routine Consulting Provider: Psych Covering Reason for consultation: slurred speech, lethargy, dysphagia since starting dose inc haldol ?EPS DS: Diagnosis Discharge Diagnosis (1) Encephalopathy acute: Status: Resolved DS: Summary Hospital Course Hospital Course: Chief Complaint: lethargy, slurred speech, cough 57-year-old female with history of epilepsy, encephalomalacia, expressive aphasia, gait instability, toxic metabolic encephalopathy, hypothyroidism, delusional disorder, and depression presented to the ED earlier today via EMS for evaluation of cough, lethargy, and slurred speech per her daughter. The pt has a long history of psychiatric and neurological issues with recurrent psychosis, slow mentation/speech, and intermittent confusion per her daughter. Per her daughter, the patient has been more tired and lethargic x 2 weeks but mental status is baseline. However, she has felt her speech has been a little slurred as well. She states the patient choked while eating a piece of bread yes terday and has been coughing since which is unlike her. Pt is not the best historian at baseline but is able to answer simple yes/no questions and denies any fevers, chills, sore throat, dysphagia, abd pain, n/v/d, shortness of breath or chest pain. Her daughter reports haldol dose was increased to 10mg 2 weeks ago but then reduced again to 5mg several days ago. On arrival, VSS.? Hematology studies unremarkable.? Renal function and electrolyte levels normal.? AST 68, ALT 119, total bilirubin and direct bilirubin within normal limits.? Ammonia level 56.? CK 142.? Troponin unremarkable.? TSH 1.03. UA with 3+ leuks, +nitrites, +urinary sediment, 4+ bacteria. UC pending. Head CT with any acute intracranial abnormality but showing left parietal bone craniotomy and underlying parietal lobe ence phalomalacia similar to prior exams.? CXR negative for any acute cardiopulmonary abnormality. In the ED, given IVF. Pt seen and evaluated using lithuanian interpretor and additional history also taken from pt daughter, Hamida. Hospital course: Patient presented with lethargy, slur speech and cough which is non productive. CT head no acute finding, CXR no pneumonia, no covid, rsv of flu, no fever, she had UTI, there has been recent increase in Haldol and thought that might have contributing to her symptoms and was on hold. She was hydrated, treated with IV antibiotics for UTI and by the next improved singificantly and is at her baseline mental status. I suspect her change in metal status likely related to encephalopathy from UTI, and unsure of haldol, there was concern of swollen tongue by Psych provider which not well appreciated by this provider. Overall she is back at her baseline, she will be treated with Ceftin for UTI upon discharge and to continue Psych medication as dictated by the Psychiatry service. Cough seemingly seems to have resolved Time Spent with Patient Time attestation: Total time managing care of this patient today ____ minutes. Discharge coordination time: Greater than 30 minutes Quality: Safe Use of Opioids Does Pt have an Active Cancer Diagnosis on the Problem List?: No Quality: Stroke Does the patient have a stroke diagnosis?: No Physical Exam Vital Signs: Vital Signs: Last Vital Signs Temp 97.5 F 01/05/23 07:33 Pulse 68 01/05/23 07:33 Resp 16 01/05/23 07:33 BP 146/82 H 01/05/23 07:33 Pulse Ox 98 01/05/23 07:33 O2 Del Method Room Air 01/05/23 07:33 BMI result Body Mass Index 31.3 Const: Other: General: AO X , no acute distress Resp: CTA bilateral Heent: tongue doesn't look swollen to me CVS: S1,S2,RRR GI: +BS, NT, no distention Skin: No rash Neuro: motor grossly intact Psych: appropriate affect DS: Data Data Completed and Pending Completed studies during hospitalization [Text1]: Procedures Repair Scalp Skin, External Approach (05/01/22) Labs on day of discharge: Laboratory Results - last 24 hr 01/03/23 18:37 Respiratory Panel [facility] See Note Adenovirus (Rapid PCR) Not Detected B.pert (TEM-PCR) Not Detected B.parapertussis DNA PCR Not Detected C. pneumoniae DNA (PCR) Not Detected Coronavirus OC43 (PCR) Not Detected Coronavirus HKU1 (PCR) Not Detected Coronavirus 229E (PCR) Not Detected Coronavirus NL63 (PCR) Not Detected Human Metapneumovir PCR Not Detected Influenza A (RT-PCR) Not Detected Influenza B (RT-PCR) Not Detected M. pneumoniae (PCR) Not Detected Parainfluenza 1 (PCR) Not Detected Parainfluenza 2 (PCR) Not Detected Parainfluenza 3 (PCR) Not Detected Parainfluenza 4 (PCR) Not Detected RSV (PCR) Not Detected Entero/Rhino (PCR) Detected A SARS-CoV-2 RNA (RT-PCR) Not Detected Preliminary micro results at discharge 01/03/23 18:46 Blood Culture - Preliminary Blood - Venous No growth after 24 hours. 01/03/23 18:47 Blood Culture - Preliminary Blood - Venous No growth after 24 hours. Discharge Plan Discharge Anticipated Discharge Date/Time: 01/05/23 08:21 Patient Disposition: Home, Self-Care Discharge Diagnosis: UTI, encephalopathy, slur speech Referrals: [facility] [Physician] - 1 Week Discharge Medications: Continued phenobarbital 30 mg Tablet 60 mg PO BEDTIME Qty: 60 0RF haloperidol 5 mg tablet 5 mg PO DAILY (DME) diaper,brief,adult,disposable Misc See Rx Instructions .ROUTE .MEDSUPPLY Qty: 10 0RF Rx Instructions: As directed (DME) blood pressure monitor Kit See Rx Instructions .Route Qty: 1 0RF Rx Instructions: As directed alosetron [Lotronex] 0.5 mg tablet 0.5 mg PO BID Qty: 60 6RF No Action haloperidol 10 mg tablet 10 mg BEDTIME clobazam 10 mg tablet 10 mg PO BID Aptiom 600 mg tablet 600 mg PO BEDTIME Xcopri 150 mg tablet 150 mg PO DAILY diclofenac sodium [Voltaren Arthritis Pain] 1 % gel 2 g topical QID Qty: 100 0RF Rx Instructions: apply to single elbow, wrist or hand; for hand includes palm/fingers/back of hand lidocaine [Lidoderm] 5 % adhesive patch,medicated 1 patch topical DAILY Qty: 15 0RF Rx Instructions: leave on most painful area for up to 12 hrs Discharge Orders: Discharge Order (Routine); Ordered 01/05/23 Ordered By: Dat Rodríguez Diet: Advance to usual diet Activity on Discharge: As tolerated Stand Alone Forms: Patient Portal Discharge page Care Plan Goals: full recovery Health Concerns: UTI, encephalopathy, schizophrenia Plan of Treatment: Take Ceftin for UTI continue taking your other medications as usual follow up with your therapist in a week, call for appointment follow with primary card proiver in a week, call for appointment Assessment: as above Discharge Date/Time: 01/05/23 15:04
[2023-01-05] MEDS: Multivitamin TABLET 1 TAB PO (09:04)
[2023-01-05] MEDS: cloBAZam 10 MG TABLET PO (09:06)
[2023-01-05] MEDS: Dicyclomine HCl 10 MG CAPSULE 20 MG PO (09:06)
[2023-01-05] MEDS: Magnesium Oxide 400 MG TABLET PO (09:06)
--- NOTE | 2023-01-05 11:21 | MHC.SLORD ---
Speech Language Pathology Order Status: Pt using bathroom when TAPER OPERATOR arrived. Per RN and ARTIFICIAL STONE APPLICATOR, pt tolerating diet well and plan is for discharge today. TAPER OPERATOR recc chopped/advanced (NDD3) solids and thin liquids.
--- NOTE | 2023-01-05 11:43 | MHC.CM.PN ---
DP: PT HAS BEEN MEDICALLY CLEARED FOR DC HOME WITH RESUMPTION OF [facility] AND NURSE THROUGH [facility]. RN AWARE. NURSE FROM [facility] MADE AWARE VIA AT [phone] (ARIANNA PORTILLO) DAUGHTER NANO AWARE AND WILL BE ABLE TO TRANSPORT AT 3 PM.
== END 2023-01-05 15:04 | disposition home or self-care (01) ==
LOC: HO.ED 15:18 → HO.EDOVER 17:12 → HO.S3 17:14
PROVIDERS: Nurse Practitioner Family; Admitting Provider Physician Assistant; Emergency Provider Emergency Medicine; PCP Internal Medicine; Visit Provider Internal Medicine
DX: N30.00 Acute cystitis without hematuria (principal); B96.20 Unspecified Escherichia coli [E. coli] as the cause of diseases classified elsewhere; G93.40 Encephalopathy, unspecified; R47.81 Slurred speech; Z20.822 Contact with and (suspected) exposure to COVID-19; Z20.828 Contact with and (suspected) exposure to other viral communicable diseases; R05.9 Cough, unspecified; R13.10 Dysphagia, unspecified; R47.01 Aphasia; G93.89 Other specified disorders of brain; F22 Delusional disorders; R26.89 Other abnormalities of gait and mobility; K21.9 Gastro-esophageal reflux disease without esophagitis; G40.909 Epilepsy, unspecified, not intractable, without status epilepticus; F33.0 Major depressive disorder, recurrent, mild; Z79.899 Other long term (current) drug therapy
CPT/HCPCS: 0241U; 36415; 51701; 70450; 71045; 80048; 80053; 80076; 80307; 81001; 82077; 82140; 82550; 82947; 83605; 83735; 84443; 84484; 85025; 85610; 85730; 87040; 87086; 87088; 87186; 87633; 87635; 92610; 93005; 96361; 96365; 96366; 96367; 96372; 99221; 99285; J0696; J1650

== ENCOUNTER 2023-02-02 08:57 | Emergency (ER) | payer MEDICARE, MEDICAID, SELFPAY ==
--- NOTE | ~2023-02-02 | CT_ITS ---
EXAMINATION: CT HEAD WITHOUT CONTRAST CLINICAL INFORMATION: Trauma and drowsiness COMPARISON: CT brain 01/03/2023 TECHNIQUE: Contiguous axial imaging was performed from the skull base to vertex without intravenous administration of contrast. This CT examination was performed using dose optimization techniques as appropriate, variously including the following: *Automated exposure control *Adjustment of mA and/or kV according to patient size (this includes techniques or standardized protocols for targeted exams where dose is matched to indication/reason for exam; i.e. extremities or head) *Use of iterative reconstruction technique DLP: 641 mGy-cm FINDINGS: There is no acute intra-axial, extra-axial bleed, masses, collection or midline shift. There is no acute infarct in evolution or edema. There is left parietal encephalomalacia with overlying craniotomy changes from previous intervention. It is stable to last exam 01/03/2023. The lateral ventricles are symmetrical in size and configuration with mild ex vacuole dilatation of left occipital horn lateral ventricle. Bone windows reveal no calvarial abnormality. There is no scalp soft tissue abnormality. Bone windows CT/CT head/brain wo IV con IMPRESSION: 1. No acute intracranial process seen. 2. Left parietal encephalomalacia with overlying craniotomy changes. 3. No major change compared to previous study 01/03/2023
[2023-02-02 09:00] VITALS: BP 92/66; PULSE 80
[2023-02-02 09:07] VITALS: BP 92/57; PULSE 73; RESP 15; TEMP 37; O2SAT 92; BMI 30.7
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
[2023-02-02 10:00] VITALS: BP 85/42; PULSE 63; RESP 14; O2SAT 95
[2023-02-02 10:25] LABS: Basophils Percent Auto 0.3 % (0-2); Eosinophils Absolute Auto 0.1 X10*3/uL (0.0-0.4); Eosinophils Percent Auto 1.3 % (0-4); Hematocrit 32.2 % (37.0-47.0); Hemoglobin 10.7 g/dl (12.0-16.0); Imm Gran Abs Auto 0.01 X10*3/uL (0.00-0.03); Imm Gran Pct Auto 0.1 % (0.0-0.4); Lymphocytes Absolute Auto 1.4 X10*3/uL (1.2-4.9); Lymphocytes Percent Auto 15.8 % (20-40); MANUAL DIFF FLAG SCAN; Mean Corpuscular HGB Conc 33.2 g/dl (31.0-35.0); Mean Corpuscular Hemoglobin 31.2 pg (27.0-33.0); Mean Corpuscular Volume 93.9 fL (80.0-98.0); Monocytes Absolute Auto 0.7 X10*3/uL (0.1-1.2); Monocytes Percent Auto 7.1 % (2-11); Neutrophils Absolute Auto 6.9 x10*3/uL (2.0-8.3); Neutrophils Percent Auto 75.4 % (45-73); PLT CLUMP 1; Red Blood Count 3.43 X10*6/uL (4.20-5.50); SCAN SMEAR FLAG 1
--- NOTE | 2023-02-02 10:34 | PC.NURSE ---
pt sleeping, pt very lethargic. awakes to person coming into room. EMS fluids running @100/hr per MD. no apparent distress, will cont to kieran.
[2023-02-02 10:45] LABS: Anion Gap 9 (12-20); Blood Urea Nitrogen 21 mg/dL (9-16); Calcium 8.9 mg/dL (8.4-10.2); Carbon Dioxide 29 mmol/L (22-29); Chloride 104 mmol/L (96-108); Creatinine Clr Calc Pharmacy 93.6; Estimated Glomerular Filt Rate > 60; Glucose Random 85 mg/dL (60-115); Magnesium 1.8 mg/dL (1.6-2.6); Sodium 138 mmol/L (135-145)
[2023-02-02 10:49] LABS: Platelet Count 144 X10*3/uL (160-400); SLIDE REVIEW VERIFIED; White Blood Count 9.1 X10*3/uL (4.8-10.8)
--- NOTE | 2023-02-02 10:51 | PC.NURSE ---
pt hypotensive, 85/42. aware
[2023-02-02] MEDS: 0.9 % Sodium Chloride 250 ML 999 ML IV (10:58)
--- NOTE | 2023-02-02 11:28 | PC.NURSE ---
pt very lethargic. fluids finished infusing. Pt BP 84/46. MD aware
[2023-02-02] MEDS: PHENobarbitaL 30 MG TABLET 60 MG PO (11:57)
--- NOTE | 2023-02-02 13:26 | PC.NURSE ---
daughters phone number [phone]
[2023-02-02 13:49] VITALS: BP 93/51; PULSE 65; RESP 12; O2SAT 98
== END 2023-02-02 14:30 | disposition home or self-care (01) ==
PROVIDERS: Emergency Provider Emergency Medicine; PCP Internal Medicine
DX: G40.909 Epilepsy, unspecified, not intractable, without status epilepticus (principal); S09.90XA Unspecified injury of head, initial encounter; W17.89XA Other fall from one level to another, initial encounter; Y93.9 Activity, unspecified; Y92.019 Unspecified place in single-family (private) house as the place of occurrence of the external cause; Y99.9 Unspecified external cause status
CPT/HCPCS: 36415; 70450; 80048; 80184; 83735; 85025; 99284

== ENCOUNTER 2023-02-09 13:37 | Emergency (ER) | payer MEDICARE, MEDICAID, SELFPAY ==
--- NOTE | ~2023-02-09 | CT_ITS ---
EXAMINATION: CT HEAD/BRAIN WITHOUT CONTRAST CT CERVICAL SPINE WITHOUT CONTRAST CLINICAL INDICATION: Seizure, unwitnessed fall. TECHNIQUE: 5 mm thin axial and reformatted 2 mm thin sagittal and coronal images of brain were obtained without contrast. Subsequently axial 3 mm thin and reformatted 2 mm thin sagittal and coronal images of cervical spine were obtained without contrast. DLP: 625 mGy-cm FINDINGS: BRAIN: There is no acute intra-axial or extra-axial bleed, masses or midline shift. There is no acute infarction in evolution. There is no edema. There is a left occipital lobe encephalomalacia from old insult. The lateral ventricles are symmetrical in size and configuration without enlargement except for ex vacuo dilatation of left occipital horn. Bone windows reveal no calvarial abnormality. There is left occipital craniotomy changes. Otherwise the calvarium is unremarkable. There is no scalp hematoma. The paranasal sinuses and mastoid air cells are well-aerated. CERVICAL SPINE: On sagittal reconstructed images there is mild straightening of cervical lordosis. The vertebral heights and alignment are normal. There is mild loss of C5-C6 and C6-C7 disc heights with moderate ventral spondylosis C4-C5, C5-C6 and C6-C7 disc levels. The craniovertebral junction and the C1-C2 alignment is normal. No visible acute fracture, dislocation or subluxation seen. The prevertebral soft tissues are normal. CT/CT cervical spine wo IV con IMPRESSION: 1. No acute intracranial process seen. 2. There is left occipital lobe encephalomalacia from old insult. There is left occipital craniotomy changes. 3. There is no acute fracture, dislocation or subluxation in cervical spine. There are degenerative disc changes C5-C6 and C6-C7 disc levels with moderate ventral spondylosis C4-C5, C5-C6 and C6-C7 disc levels.
--- NOTE | ~2023-02-09 | CT_ITS ---
EXAMINATION: CT chest, CT abdomen pelvis without IV contrast. CLINICAL HISTORY: Seizure. Unwitnessed fall. TECHNIQUE: 5 mm thin axial and reformatted 3 mm thin sagittal and coronal images of chest, abdomen pelvis were obtained without contrast. DLP [address] examination was performed using dose optimization technique as appropriate, variously including the following: Automated exposure control Adjustment of MA and/or KV according to patient size(this includes techniques or standardized protocols for targeted exams where dose is matched to indication/reason for exam; extremities or head. Use of iterative reconstruction techniques. FINDINGS: CHEST: LUNGS: Lungs are well-expanded with patchy atelectasis at left lung base. Rest of the lungs are clear. Mediastinum: The thyroid lobes are symmetric and normal. The central trachea and the bronchi widely patent. Heart size and the great vessels are normal caliber. No pericardial effusion seen. No abnormal size mediastinal or hilar lymph nodes. There are no coronary artery calcifications. Pleura: There is no pleural effusion, thickening or calcification. There is a left chest wall pacemaker with solitary electrode adjacent left jugular vein.. Axilla: No abnormal axillary lymph nodes seen. The chest wall is unremarkable. Osseous structures: No aggressive lytic or sclerotic process seen. Abdomen and pelvis: Liver, ducts and gallbladder: The liver is normal size, density and contour. There is subtle high attenuation of right hepatic lobe inferior segment question focal fatty infiltration. Rest of the liver densities normal. Intrahepatic ductal dilatation seen. There is a solitary laminated gallstone measuring 2.8 cm. No wall thickening seen. Spleen: The spleen is normal size. There is a 1 cm hypodensity in the spleen. 8 mm calcification is seen along the inferior tip. Pancreas: Unremarkable. Adrenal glands: Unremarkable. Kidneys and ureters: Both kidneys are normal size, shape and position. No radiopaque renal calculi or hydronephrosis seen. Lymphovascular structures: The abdominal aorta is normal caliber. No abnormal size retroperitoneal or para-aortic lymph nodes seen. GI tract: There is scattered stool and gas seen throughout the colon without distention. The appendix is normal caliber. The small bowel loops are normal caliber. No free air or free fluid. Pelvis: The uterus is anteverted. The bladder is nondistended. No pelvic mass or free fluid. No abnormal lymph nodes. Osseous structures: No aggressive lytic or sclerotic process seen. The paravertebral soft tissues are normal. CT/CT abdomen pelvis wo IV con IMPRESSION: 1. Left lower lobe atelectasis. 2. No acute process seen in the chest. 3. No acute process seen in the abdomen. 4. Gallstone without wall thickening. 5. Multiple splenic cysts and calcifications. 6. Fatty infiltration of liver. 7. Mild, constipation.
--- NOTE | ~2023-02-09 | XR_ITS ---
EXAMINATION: XR HIP, LEFT CLINICAL INFORMATION: Unwitnessed fall, left hip pain. COMPARISON: None available. TECHNIQUE: Two views of the left hip. FINDINGS: Bones and soft tissues are normal. No fracture. Alignment is anatomic. Hip joint space is maintained. XR/XR hip LT w PEL1V IMPRESSION: Unremarkable left hip.
[2023-02-09 13:44] VITALS: BP 110/70; BP 117/79; PULSE 76; PULSE 89; RESP 20; TEMP 36.9; O2SAT 98; BMI 29.7
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
--- NOTE | 2023-02-09 14:00 | ECG_ITS ---
Test Reason : SEIZURE Blood Pressure : / mmHG Vent. Rate : 080 BPM Atrial Rate : 080 BPM P-R Int : 158 ms QRS Dur : 072 ms QT Int : 364 ms P-R-T Axes : 016 053 044 degrees QTc Int : 419 ms Normal sinus rhythm Normal ECG When compared with ECG of 03-JAN-2023 13:05, No significant change was found Referred By: Jeni Magaña Electronically Signed By:Yuri Burnette
[2023-02-09 14:20] LABS: MANUAL DIFF FLAG NO
[2023-02-09 14:24] LABS: Basophils Percent Auto 0.7 % (0-2); Eosinophils Percent Auto 0.7 % (0-4); Hematocrit 37.4 % (37.0-47.0); Hemoglobin 12.2 g/dl (12.0-16.0); Imm Gran Abs Auto 0.05 X10*3/uL (0.00-0.03); Imm Gran Pct Auto 0.9 % (0.0-0.4); Lymphocytes Absolute Auto 0.8 X10*3/uL (1.2-4.9); Lymphocytes Percent Auto 15.2 % (20-40); Mean Corpuscular HGB Conc 32.6 g/dl (31.0-35.0); Mean Corpuscular Volume 95.2 fL (80.0-98.0); Mean Platelet Volume 9.5 fL (9.4-12.3); Monocytes Absolute Auto 0.4 X10*3/uL (0.1-1.2); Monocytes Percent Auto 6.7 % (2-11); Neutrophils Absolute Auto 4.1 x10*3/uL (2.0-8.3); Neutrophils Percent Auto 75.8 % (45-73); Platelet Count 230 X10*3/uL (160-400); Red Blood Count 3.93 X10*6/uL (4.20-5.50); White Blood Count 5.4 X10*3/uL (4.8-10.8)
[2023-02-09 14:28] LABS: Ammonia 29 umol/L (13-55)
[2023-02-09 14:32] LABS: INTERNATIONAL NORM RATIO 1.1 (0.9-1.1); Lactic Acid 1.2 mmol/L (0.5-2.0); Prothrombin Time 12.9 SEC (10.0-13.1)
[2023-02-09] MEDS: 0.9 % Sodium Chloride 1,000 ML 999 ML IV (14:40)
[2023-02-09 14:44] LABS: Troponin-I High Sensitivity < 2.7 ng/L (<3.5-17.0)
[2023-02-09 15:05] LABS: Alanine Aminotransferase 69 U/L (0-31); Albumin Level 4.4 g/dL (3.5-5.0); Alkaline Phosphatase 125 U/L (39-117); Anion Gap 15 (12-20); Aspartate Amino Transferase 46 U/L (5-31); Bilirubin Direct 0.1 mg/dL (0.0-0.5); Bilirubin Total 0.3 mg/dL (0.0-1.0); Blood Urea Nitrogen 11 mg/dL (9-16); Calcium 9.9 mg/dL (8.4-10.2); Carbon Dioxide 28 mmol/L (22-29); Chloride 104 mmol/L (96-108); Creatinine Clr Calc Pharmacy 98.2; Estimated Glomerular Filt Rate > 60; Glucose Random 109 mg/dL (60-115); Magnesium 1.8 mg/dL (1.6-2.6); Potassium 5.1 mmol/L (3.3-5.1); Sodium 142 mmol/L (135-145); Total Protein 8.2 g/dL (6.5-8.0)
[2023-02-09 16:27] LABS: Appearance Urine Clear; Color Urine Yellow; Glucose Urine UA Negative (Negative); Leukocyte Esterase Urine Negative (Negative); Nitrite Urine Negative (Negative); PH 6.5 (5.0-9.0); Specific Gravity - Urine 1.015 (1.005-1.025); Urine Blood Negative (Negative); Urine Ketones Negative (Negative); Urine Protein Negative (Neg-Trace)
[2023-02-09 16:41] LABS: Amphetamine Screen Urine Not Detected (Not Detect); Barbiturates, Urine POSITIVE (Not Detect); Benzodiazepines Screen Urine POSITIVE (Not Detect); Cannabinoid Screen Urine Not Detected (Not Detect); Cocaine Screen Urine Not Detected (Not Detect); Fentanyl, urine Not Detected (Not Detect); Opiate Screen Urine Not Detected (Not Detect); Phencyclidine Screen Urine Not Detected (Not Detect)
[2023-02-09 18:09] VITALS: BP 125/69; PULSE 75; RESP 14; TEMP 36.8; O2SAT 98
[2023-02-09] MEDS: Acetaminophen 325 MG TABLET 650 MG PO (19:42)
[2023-02-09 20:16] VITALS: BP 113/71; PULSE 82; RESP 13; TEMP 36.8; O2SAT 96
--- NOTE | 2023-02-09 21:22 | MHC.EDTECH ---
Patient put on commode
[2023-02-09 22:48] VITALS: BP 123/76; PULSE 75; RESP 13; TEMP 36.2; O2SAT 99
--- NOTE | 2023-02-09 23:12 | PC.NURSE ---
Spoke with pt about possible PT/case management as she is having continued pain to left hip. Pt states she lives at home alone with a [employer]PER[employer] TRACK that comes in daily but would feel safer staying for PT/CM at this time. Provider made aware.
[2023-02-10 02:24] VITALS: BP 134/84; PULSE 78; RESP 16; TEMP 36.6; O2SAT 93
[2023-02-10 04:32] VITALS: BP 95/58; PULSE 68; RESP 14
[2023-02-10 06:23] VITALS: BP 118/77; PULSE 84; RESP 12; TEMP 36.6; O2SAT 92
--- NOTE | 2023-02-10 08:45 | MHC.CM.ED ---
Received consult for assessment of d/c needs: pt walking in ED [place] w/PT : slow gait, no assistive devices: met w/pt and educational interpreter: pt w/flat affect, responses minimal: states she lives alone and has daily [employer]INATING OPERATOR visits 7 days per week provided by her dtr. Call placed to dtr Hamida w/pt permission. Hamida states her sister is pt's [employer] CR[employer] LAMINATING OPERATOR and Hamida provides all transportation for pt. Pt has but does not use a Rollator and has been to [facility] in the past. HCP on file naming Hamida. Awaiting PT eval results for finalization of d/c plan: likely home - Hamida aware and can transport pt to home today. ED CM to follow
[2023-02-10 09:09] VITALS: BP 123/69; PULSE 78; RESP 12; TEMP 36.6; O2SAT 93
--- NOTE | 2023-02-10 09:31 | PC.NURSE ---
patient sleeping. respirations are equal and unlabored. no signs of distress noted. call jung placed within reach. will CTM
[2023-02-10] MEDS: Ibuprofen 600 MG TABLET PO (11:15)
[2023-02-10] MEDS: Lidocaine 4 % Patch ADH..PATCH 1 PATCH TRANSDERMA (11:40)
== END 2023-02-10 11:42 | disposition home or self-care (01) ==
PROVIDERS: Physician Assistant; Emergency Provider Emergency Medicine Emergency Medical Services
DX: R56.9 Unspecified convulsions (principal); J98.11 Atelectasis; M25.552 Pain in left hip; M25.551 Pain in right hip; R51.9 Headache, unspecified; M54.2 Cervicalgia; K76.0 Fatty (change of) liver, not elsewhere classified; K59.00 Constipation, unspecified; R26.2 Difficulty in walking, not elsewhere classified; Z91.81 History of falling
CPT/HCPCS: 36415; 70450; 71250; 72125; 73502; 74176; 80048; 80076; 80307; 81003; 82140; 83605; 83735; 84484; 85025; 85610; 93005; 96360; 97163; 99285

== ENCOUNTER 2023-03-16 10:37 | Outpatient (REF) | payer MEDICARE, MEDICAID, SELFPAY ==
--- NOTE | ~2023-03-16 | XR_ITS ---
EXAMINATION: XR FEMUR, LEFT CLINICAL INFORMATION: Pain in left leg. COMPARISON: 02/09/2023 TECHNIQUE: AP and lateral views of the left femur were obtained, 4 views total. Visualization of the knee region/distal femur are limited. FINDINGS: Degenerative changes in the imaged lower lumbar spine. Left hip joint space is preserved. No displaced fracture or focal bony destructive lesion of the left femur. Mild degenerative changes left knee. XR/XR femur LT 2V IMPRESSION: No displaced fracture or focal bony destructive lesion of the left femur. Visualization of the knee region/distal femur is limited. Dedicated views of the knee recommended if there is concern for pathology in this region. Additional imaging with CT scan or MRI should be considered for better visualization as these modalities are much more sensitive for detection of fracture or other underlying pathology.
[2023-03-16 13:05] LABS: Alanine Aminotransferase 63 U/L (0-31); Albumin Level 4.4 g/dL (3.5-5.0); Alkaline Phosphatase 140 U/L (39-117); Anion Gap 14 (12-20); Aspartate Amino Transferase 28 U/L (5-31); Bilirubin Total 0.5 mg/dL (0.0-1.0); Blood Urea Nitrogen 14 mg/dL (9-16); Calcium 9.5 mg/dL (8.4-10.2); Carbon Dioxide 28 mmol/L (22-29); Chloride 98 mmol/L (96-108); Estimated Glomerular Filt Rate > 60; Glucose Random 81 mg/dL (60-115); Potassium 4.7 mmol/L (3.3-5.1); Sodium 137 mmol/L (135-145); Total Protein 8.5 g/dL (6.5-8.0)
== END 2023-03-16 10:38 | disposition home or self-care (01) ==
LOC: HO.XRAY 10:37
PROVIDERS: PCP Internal Medicine; Visit Provider Nurse Practitioner Family
DX: M79.605 Pain in left leg (principal); E87.1 Hypo-osmolality and hyponatremia
CPT/HCPCS: 36415; 73552; 80053

== ENCOUNTER 2023-04-30 15:29 | Outpatient (AMB) | payer MEDICARE, MEDICAID, SELFPAY ==
[2023-04-30 15:33] VITALS: BP 118/76; PULSE 78; O2SAT 98; BMI 26.8
--- NOTE | 2023-04-30 15:33 | A.OFFPC_ITS ---
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 Required: No Accompanied by: Self / Same As Patient Allergies Iodinated Contrast Media [IV Dye, Iodine Containing] Allergy (Intermediate, Verified 04/30/23 15:45) RED ALL OVER NAUSEA AND LOST RESPIRATIONS Penicillins [PENICILLINS] Allergy (Intermediate, Verified 04/30/23 15:45) Unknown phenytoin [From Dilantin] Allergy (Intermediate, Verified 04/30/23 15:45) gum swelling lamotrigine [From Lamictal] Allergy (Unknown, Verified 04/30/23 15:45) unknown Medication List - Last Reconciled 04/30/23 by Lara Rivas MD alosetron (Lotronex) 0.5 mg PO BID blood pressure monitor As directed cenobamate (Xcopri) 150 mg PO DAILY clobazam 25 mg PO DAILY diaper,brief,adult,disposable As directed diclofenac sodium 1% (Voltaren Arthritis Pain) 2 grams topical QID eslicarbazepine (Aptiom) 600 mg PO BEDTIME haloperidol 5 mg PO DAILY haloperidol 10 mg BEDTIME lidocaine 5% (Lidoderm) 1 patch topical DAILY phenobarbital 60 mg (2 x 30 mg) PO BEDTIME Tobacco use date assessed: 03/16/23 Dental Screening Dental Screen Date: 04/30/23 Did you have a dental visit in the last 12 months?: No Did you have a dental problem in the last 6 months where you did not have access to dental care?: No Was dental information given to patient?: No HPI HPI Comments History of Present Illness Details This is a 57-year-old female with epilepsy, mild recurrent major depression and delusional disorder that comes today accompanied by daughter which is her paint mixer complaining of more anxiety and more confusion that started about 2-3 weeks weeks ago. Urinalysis was negative for infection. She went to [facility] ER in 04/17/2023 due to a fall hitting her head and head CT shows changes similar to multiple myeloma. She had a head CT in January 2023 not showing does changes. I order MRI of the brain. Patient did not recognize me and was awake, alert and oriented to person only but not to time or place. I advised the daughter to call Neurology in [place] regarding this matter. Depression stable with medications. Delusional disorder follow by Psychology. No chest pain or shortness of breath. [facility] Medical History Burn injury Class 1 obesity due to excess calories with body mass index (BMI) of 30.0 to 30.9 in adult Delusional disorder Depression Encephalomalacia Epilepsy Expressive aphasia Gait instability GERD (gastroesophageal reflux disease) Hypomagnesemia Hyponatremia Hypotension IBS (irritable bowel syndrome) Mild recurrent major depression Overactive bladder Polyarthralgia Pre-op evaluation Pre-op examination Screening for cervical cancer Seizures Unsteady gait Urge urinary incontinence Urinary incontinence Surgical History H/O prior ablation treatment History of section History of skin graft History of tubal ligation History of tumor Surgical history unknown Family History Father Heart problem Mother Diabetes Low blood pressure Family/Other Substance use disorder Mental health disorder Social History Household Members: Other Household Members Other:: with daughter Housing: Apartment Do you presently have visiting nurse or other home services: Yes Unable to assess alcohol history related to: Refusing to respond Alcohol intake: never Patient Tobacco Use Status: Never used Tobacco e-Cigarette/Vaping Use: Never Used Second Hand Smoke Exposure: No Advance Directives Date on File: 01/09/23 service: No Current occupational status: disabled Current occupation: rt handed Sexual orientation: Straight/Heterosexual Gender identity: Female Cognitive needs: Yes (walker) Hearing needs: No Vision needs: Yes (glasses) Questionnaire PHQ-9 Over the last 2 weeks, how often have you been bothered by any of the following problems? 1. Little interest or pleasure in doing things: not at all 2. Feeling down, depressed, or hopeless: not at all 3. Trouble falling or staying asleep, or sleeping too much: not at all 4. Feeling tired or having little energy: not at all 5. Poor appetite or overeating: not at all 6. Feeling bad about yourself - or that you are a failure or have let yourself or your family down: not at all 7. Trouble concentrating on things, such as reading the newspaper or watching television: not at all 8. Moving or speaking so slowly that other people could have noticed. Or the opposite - being so fidgety or restless that you have been moving around a lot more than usual: not at all 9. Thoughts that you would be better off or of hurting yourself in some way: not at all Total score: 0 Depression Screening Interpretation: Negative 20680 - PHQ-9 Billing: Yes Source: Developed by Drs. Yasmany Geronimo, Shazia Gaytan, Igor Park and colleagues, with an educational robin from [employer]. Thrive Questionnaire Date Thrive assessed: 03/16/23 AUDIT C Alcohol Use Questionnaire (AUDIT-C) 1. How often do you have a drink containing alcohol?: Never Total Score: 0 KERRY-7 AMB Questionnaire KERRY-7 Date KERRY - 7 assessed: 03/16/23 Source: Developed by Drs. Yasmany Geronimo, Shazia Gaytan, Igor Park and colleagues, with an educational robin from [employer]. Review of Systems Const All systems reviewed & are unremarkable except as noted in HPI and below Eyes Reports no additional complaints, Denies change in vision and Denies other visual disturbances Card Denies chest pain at rest, Denies chest pain with activity, Denies edema, Denies irregular heart rhythm, Denies claudication, Denies dyspnea, Denies dyspnea on exertion, Denies orthopnea, Denies paroxysmal nocturnal dyspnea and Denies slow heart rate Resp Denies cough, Denies dyspnea and Denies dyspnea on exertion GI Denies abdominal pain, Denies change in bowel habits, Denies excessive flatus, Denies nausea and Denies vomiting Denies urinary incontinence, Denies urinary hesitancy and Denies urinary urgency Musc Denies abnormal gait, Denies atrophy, Denies deformity and Denies limited range of motion Skin/Breast Denies bleeding lesions, Denies changing lesions and Denies rash Neuro Denies abnormal gait, Reports behavioral changes, Reports confusion and Denies lack of coordination Psych Reports anxiety, Reports behavioral changes and Reports confusion Physical exam (Primary Care) Vital Signs: Last Vital Signs Pulse 78 04/30/23 15:33 BP 118/76 04/30/23 15:33 Pulse Ox 98 04/30/23 15:33 Oxygen Delivery Method Room Air 04/30/23 15:33 BMI result Body Mass Index 26.8 Tobacco/Smoking Status: Tobacco use Status Tobacco use date assessed 03/16/23 04/30/23 15:39 Patient Tobacco Use Status Never used Tobacco 04/30/23 15:39 Tobacco use type 11/16/22 09:40 e-Cigarette/Vaping Use Never Used 04/30/23 15:39 PHQ-9: PHQ-9 Score PHQ-9: Total score 0 04/30/23 16:14 Depression Screening Interpretation: Negative Thrive Assessment: Date of Thrive Assessment Date Thrive assessed 03/16/23 04/30/23 15:39 Const General: confusion Orientation/consciousness: confusion Eyes General: appearance normal, both eyes and all related structures Eyelids: Yes eyelids normal Conjunctivae: conjunctivae normal Neck Neck: Yes normal visual inspection and Yes supple Resp Effort & Inspection: normal respiratory effort Auscultation: clear to auscultation bilaterally Cardio Jugular venous distension: no JVD Rate: regular rate Rhythm: regular rhythm Heart sounds: S1 normal heart sound present and S2 normal heart sound present Neuro General: confusion Extrem General: Yes full ROM Psych Attitude: Belligerent attititude/behavior present Results AMB Urinalysis, Automated UA Leukoctes 15 Hortencia/uL Last Edit by Josefina Dickens CMA on 04/30/23 16:1 5 UA Nitrite Negative Last Edit by Josefina Dickens CMA on 04/30/23 16:15 UA Urobilinogen 0.2 mg/dL Last Edit by Josefina Dickens CMA on 04/30/23 16:15 UA Protein 30 mg/dL Last Edit by Josefina Dickens CMA on 04/30/23 16:15 UA pH 6.0 Last Edit by Josefina Dickens CMA on 04/30/23 16:15 UA Blood 0 Cesar/uL Last Edit by Josefina Dickens CMA on 04/30/23 16:15 UA Specific [place] 1.025 Last Edit by Josefina Dickens CMA on 04/30/23 16:15 UA Ketone Positive Last Edit by Josefina Dickens CMA on 04/30/23 16:15 UA Bilirubin 1 mg/dL Last Edit by Josefina Dickens CMA on 04/30/23 16:15 UA Glucose 0 mg/dL Last Edit by Josefina Dickens CMA on 04/30/23 16:15 Results Reviewed Results Reviewed: Laboratory Last Values Urine pH (Auto) 6.0 04/30/23 16:14 Specific [place] (Auto) 1.025 04/30/23 16:14 Urine Protein (Auto) 30 mg/dL 04/30/23 16:14 Glucose (UA)(Auto) 0 mg/dL 04/30/23 16:14 Urine Ketones (Auto) Positive 04/30/23 16:14 Urine Blood (Auto) 0 Cesar/uL 04/30/23 16:14 Urine Nitrite (Auto) Negative 04/30/23 16:14 Urine Bilirubin (Auto) 1 mg/dL 04/30/23 16:14 Urine Urobilinogen (Auto) 0.2 mg/dL 04/30/23 16:14 Leukocyte Esterase (Auto) 15 Hortencia/uL 04/30/23 16:14 Assessment and Plan Assessment & Plan (1) Epilepsy: Code(s): G40.909 - Epilepsy, unspecified, not intractable, without status epilepticus Plan: Continue phenobarbital, Aptiom and Coblazam. Follow-up with Neurology. MRI of the brain ordered due to behavioral changes and confusion. (2) Mild recurrent major depression: Code(s): F33.0 - Major depressive disorder, recurrent, mild Plan: Continue citalopram (3) Delusional disorder: Code(s): F22 - Delusional disorders Plan: Follow-up with Behavioral Health. Orders: Orders MR head/brain wo con Today G40.909 - Epilepsy, unspecified, not intractable, without status epilepticus, R41.0 - Disorientation, unspecified AMB Urinalysis Automated Today Z13.9 - Encounter for screening, unspecified Medications: Discontinued haloperidol 5 mg PO DAILY 30 tabs 0RF Coding Level of Care Code Est Pt Level 3 (28031) Diagnoses Epilepsy G40.909 Mild recurrent major depression F33.0 Delusional disorder F22 Time Spent (min) 19
== END 2023-04-30 16:17 | disposition home or self-care (01) ==
PROVIDERS: Visit Provider Internal Medicine
DX: G40.909 Epilepsy, unspecified, not intractable, without status epilepticus (principal); F33.0 Major depressive disorder, recurrent, mild; F22 Delusional disorders
CPT/HCPCS: 81003; 99213

== ENCOUNTER 2023-05-10 11:49 | Inpatient (IN) | payer MEDICARE, MEDICAID, SELFPAY ==
--- NOTE | ~2023-05-10 | XR_ITS ---
EXAMINATION: XR RIBS, RIGHT CLINICAL INFORMATION: Seizure and fall with right rib pain COMPARISON: None available. TECHNIQUE: Frontal radiograph of the chest and 3 views of the right ribs were obtained. FINDINGS: Lungs are clear. No consolidation, pneumothorax, or pleural effusion. The cardiomediastinal silhouette and pulmonary vasculature are normal. A left-sided nerve stimulating device is noted. There is a nondisplaced right posterior lateral ninth rib fracture. The right ninth rib appears to be broken in 2 locations, both posteriorly and laterally. There are old healed right posterior fourth rib fracture and right anterior sixth rib fracture. XR/XR ribs RT min 3V w CXR1V IMPRESSION: Right ninth rib fractures involving both the posterior and lateral aspect. No pneumothorax.
--- NOTE | ~2023-05-10 | CT_ITS ---
EXAMINATION: CT HEAD WITHOUT CONTRAST CLINICAL INFORMATION: Fall with head injury. COMPARISON: CT scan of the head 05/17/2023, 05/15/2023, 05/11/2023. TECHNIQUE: Contiguous axial imaging was performed from the skull base to vertex without intravenous administration of contrast. This CT examination was performed using dose optimization techniques as appropriate, variously including the following: *Automated exposure control *Adjustment of mA and/or kV according to patient size (this includes techniques or standardized protocols for targeted exams where dose is matched to indication/reason for exam; i.e. extremities or head) *Use of iterative reconstruction technique DLP: 744 mGy-cm FINDINGS: There chronic changes of a left craniotomy and there is a small focus of gliosis and encephalomalacia involving the left parietal lobe. This finding has been stable when compared to recent prior imaging from 05/17/2023. There is no acute intracranial hemorrhage or abnormal extra-axial collection. No intracranial mass effect or midline shift. Lateral and third ventricles are normal. No hydrocephalus. The skull base is intact. No mastoid middle ear effusion. No active paranasal sinus disease. CT/CT head/brain wo IV con IMPRESSION: Stable chronic changes of a left craniotomy and a small focus of gliosis and encephalomalacia involving the left parietal lobe. No acute intracranial hemorrhage.
--- NOTE | ~2023-05-10 | CT_ITS ---
EXAMINATION: CT HEAD WITHOUT CONTRAST CLINICAL INFORMATION: Status post fall with laceration. COMPARISON: Head CT scan dated 05/11/2023. TECHNIQUE: Contiguous axial imaging was performed from the skull base to vertex without intravenous administration of contrast. Coronal and sagittal reformatted images were obtained. This CT examination was performed using dose optimization techniques as appropriate, variously including the following: *Automated exposure control *Adjustment of mA and/or kV according to patient size (this includes techniques or standardized protocols for targeted exams where dose is matched to indication/reason for exam; i.e. extremities or head) *Use of iterative reconstruction technique DLP: 586 mGy-cm FINDINGS: The cortical sulci are normal. The lateral ventricles are symmetrical. The third and fourth ventricles are in their normal midline position. The basilar and prepontine cisterns are unremarkable. Left superior parietal encephalomalacia without significant change. Mild periventricular microvascular changes. There is no acute intra or extracerebral abnormality. There is no mass effect or midline shift. Small right superior parietal and left superior subgaleal hematomas with overlying skin clips. Left superior parietal craniotomy changes. Sections through the bony calvarium are unremarkable. The paranasal sinuses are clear. The bony orbits and orbital contents are unremarkable. CT/CT head/brain wo IV con IMPRESSION: 1. No acute intracranial pathology. Chronic changes as detailed above without significant change. 2. Small right superior parietal and left superior subgaleal hematomas with overlying skin clips. Correlate with physical exam.
--- NOTE | ~2023-05-10 | CT_ITS ---
EXAMINATION: CT HEAD WITHOUT CONTRAST CLINICAL INFORMATION: Seizure, rule out fracture, bleed. COMPARISON: Head CT scan dated 02/09/2023. TECHNIQUE: Contiguous axial imaging was performed from the skull base to vertex without intravenous administration of contrast. Coronal and sagittal reformatted images were obtained. This CT examination was performed using dose optimization techniques as appropriate, variously including the following: *Automated exposure control *Adjustment of mA and/or kV according to patient size (this includes techniques or standardized protocols for targeted exams where dose is matched to indication/reason for exam; i.e. extremities or head) *Use of iterative reconstruction technique DLP: 573 mGy-cm FINDINGS: There is mild widening of the cortical sulci and associated ventriculomegaly. The lateral ventricles are symmetrical. The third and fourth ventricles are in their normal midline position. The basilar and prepontine cisterns are unremarkable. Mild periventricular microvascular changes are seen. Encephalomalacia is again seen in the left posterior superior parietal region without significant change. There is no acute intra or extracerebral abnormality. There is no mass effect or midline shift. Left posterosuperior parietal postsurgical changes. Sections through the bony calvarium are unremarkable. The orbits are intact. The paranasal sinuses are clear. The mastoid air cells are clear. CT/CT head/brain wo IV con IMPRESSION: No acute intracranial pathology.
--- NOTE | ~2023-05-10 | CT_ITS ---
EXAMINATION: CT HEAD WITHOUT CONTRAST CLINICAL INFORMATION: Follow-up status post fall 05/15/2023. COMPARISON: Multiple prior CT scans, the most recent from 05/15/2023. TECHNIQUE: Multidetector CT imaging of the head was obtained without the use of intravenous contrast. Coronal and sagittal reformatted images were generated at the technologist workstation. This CT examination was performed using dose optimization techniques as appropriate, variously including the following: *Automated exposure control *Adjustment of mA and/or kV according to patient size (this includes techniques or standardized protocols for targeted exams where dose is matched to indication/reason for exam; i.e. extremities or head) *Use of iterative reconstruction technique DLP: 762 mGy-cm. FINDINGS: The study redemonstrates the sequelae of the high right greater than left scalp hematomas/lacerations in the parietal regions with soft tissue fullness and multiple skin jakub. There has been slight interval decrease in the soft tissue swelling. The study redemonstrates the high left parietal craniotomy, unchanged. There are no acute osseous findings. There is hyperostosis frontalis interna. The study redemonstrates the area of encephalomalacia with gliosis in the left parieto-occipital region with mild exvacuo dilatation of the trigone and posterior body of the left lateral ventricle, consistent with chronic changes; these findings appear stable. Elsewhere, williamson-white differentiation is well preserved. Overall, the ventricles and sulci are slightly commensurately prominent. There is no evidence of acute intracranial hemorrhage or territorial infarction. No abnormal mass-effect or midline shift is seen. No extra-axial fluid collections are identified. CT/CT head/brain wo IV con IMPRESSION: 1. There are no acute bleeds or territorial infarcts. No masses are demonstrated. 2. The study redemonstrates the sequelae of the high right greater than left scalp hematomas/lacerations. 3. There are no acute osseous findings; there are sequelae of a left high parietal craniotomy. 4. The study redemonstrates encephalomalacia and gliosis in the left parieto-occipital region, unchanged.
--- NOTE | ~2023-05-10 | CT_ITS ---
EXAMINATION: CT HEAD/BRAIN WITHOUT CONTRAST CT CERVICAL SPINE WITHOUT CONTRAST CLINICAL INFORMATION: Trauma. COMPARISON: None available. TECHNIQUE: Contiguous axial imaging was performed from the skull base to vertex without intravenous administration of contrast. This CT examination was performed using dose optimization techniques as appropriate, variously including the following: *Automated exposure control. *Adjustment of mA and/or kV according to patient size (this includes techniques or standardized protocols for targeted exams where dose is matched to indication/reason for exam; i.e. extremities or head). *Use of iterative reconstruction technique. DLP: 936 mGy-cm. 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 The right lateral, third and fourth ventricles are normally outlined. The basal cisterns are normally outlined as well. There is no acute territorial defect, hemorrhage or midline shift. CALVARIUM: An old left parietal craniotomy defect is noted. MAXILLOFACIAL SINUSES AND MASTOIDS: Clear as visualized. CERVICAL SPINE: There is straightening of the expected cervical spine curvature. There is mild diffuse cervical disc degenerative change with loss of disc space, endplate change associated with mild facet osteoarthritic hypertrophic change without significant spinal canal or neural foraminal narrowing. There is no fracture. The prevertebral soft tissues are unremarkable. The upper lung cameron are also unremarkable. CT/CT cervical spine wo IV con IMPRESSION: 1. No acute intracranial abnormality. 2. Straightening of the expected cervical spine curvature. 3. No fracture.
--- NOTE | ~2023-05-10 | CT_ITS ---
EXAMINATION: CT HEAD/BRAIN WITHOUT CONTRAST CT CERVICAL SPINE WITHOUT CONTRAST CLINICAL INFORMATION: Trauma. COMPARISON: None available. TECHNIQUE: Contiguous axial imaging was performed from the skull base to vertex without intravenous administration of contrast. This CT examination was performed using dose optimization techniques as appropriate, variously including the following: *Automated exposure control. *Adjustment of mA and/or kV according to patient size (this includes techniques or standardized protocols for targeted exams where dose is matched to indication/reason for exam; i.e. extremities or head). *Use of iterative reconstruction technique. DLP: 936 mGy-cm. 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 The right lateral, third and fourth ventricles are normally outlined. The basal cisterns are normally outlined as well. There is no acute territorial defect, hemorrhage or midline shift. CALVARIUM: An old left parietal craniotomy defect is noted. MAXILLOFACIAL SINUSES AND MASTOIDS: Clear as visualized. CERVICAL SPINE: There is straightening of the expected cervical spine curvature. There is mild diffuse cervical disc degenerative change with loss of disc space, endplate change associated with mild facet osteoarthritic hypertrophic change without significant spinal canal or neural foraminal narrowing. There is no fracture. The prevertebral soft tissues are unremarkable. The upper lung cameron are also unremarkable. CT/CT head/brain wo IV con IMPRESSION: 1. No acute intracranial abnormality. 2. Straightening of the expected cervical spine curvature. 3. No fracture.
[2023-05-10 11:54] VITALS: BP 116/83; PULSE 105; O2SAT 100
[2023-05-10 11:58] VITALS: BP 115/70; PULSE 100; RESP 19; TEMP 36.6; O2SAT 95; BMI 27.0
--- NOTE | 2023-05-10 12:30 | PC.NURSE ---
spoke w daughter and pt has been anxious and agitated over the past several days, has appt w psychologist dr castellanos tomorrow, was neg for uti at pcp a few days ago
--- NOTE | 2023-05-10 13:16 | ED.SEIZURE ---
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 Patient presented after witnessed seizure by the MINK FARMER at home patient had multiple ED visits in the past for seizures, no reported fall or head injury, patient is complaining of right chest wall pain. Patient takes Clobazam 10mg bid, Xcopri 150mg qd, Aptiom 600mg 1/2 tid, Phenobarbital 100mg hs. Patient is scheduled to see her psychologist tomorrow for increased agitation. Seizure History: Yes (yesterday in bed) Related Data Home Medications Medication Instructions Recorded Confirmed haloperidol 5 mg tablet 5 mg PO DAILY 01/03/23 04/30/23 cenobamate 150 mg tablet (Xcopri) 150 mg PO DAILY 02/10/23 04/30/23 eslicarbazepine 600 mg tablet 600 mg PO BEDTIME 02/10/23 04/30/23 (Aptiom) haloperidol 10 mg tablet 10 mg BEDTIME 02/10/23 04/30/23 clobazam 10 mg tablet 25 mg PO DAILY 04/30/23 04/30/23 Previous Rx's Medication Instructions Recorded diaper,brief,adult,disposable #10 ea 11/24/20 blood pressure monitor #1 ea 03/01/22 phenobarbital 30 mg tablet 60 mg PO BEDTIME #60 tabs 05/24/22 alosetron 0.5 mg tablet (Lotronex) 0.5 mg PO BID #60 tabs 01/02/23 diclofenac sodium 1 % topical gel 2 g topical QID #100 grams 02/10/23 (Voltaren Arthritis Pain) lidocaine 5 % topical patch 1 patch topical DAILY #15 ea 03/16/23 (Lidoderm) Allergies Allergy/AdvReac Type Severity Reaction Status Date / Time Iodinated Contrast Media Allergy Intermediate RED ALL Verified 04/30/23 15:45 [IV Dye, Iodine Containing] OVER NAUSEA AND LOST RESPIRATIONS Penicillins [PENICILLINS] Allergy Intermediate Unknown Verified 04/30/23 15:45 phenytoin [From Dilantin] Allergy Intermediate gum Verified 04/30/23 15:45 swelling lamotrigine [From Lamictal] Allergy Unknown unknown Verified 04/30/23 15:45 Review of Systems Review of Systems: All other systems are reviewed and are negative Constitutional: Reports as per HPI and Reports no additional constitutional complaints Eyes: Reports as per HPI and Reports no additional eye complaints Reports system reviewed and no additional complaints, except as documented Cardiovascular: Reports as per HPI and Reports no additional cardiovascular complaints Respiratory: Reports as per HPI and Reports no additional respiratory complaints Gastrointestinal: Reports as per HPI and Reports no additional gastrointestinal complaints Genitourinary: Reports no additional female genitourinary complaints Musculoskeletal: Reports no additional musculoskeletal complaints Skin/Breast: Reports system reviewed and no additional complaints, except as docu Psychiatric: Reports no additional psychiatric complaints Endocrine: Reports no additional endocrine complaints Hematologic/Lymphatic: Reports no additional hematologic/lymphatic complaints Allergic/Immunologic: Reports no additional allergic/immunologic complaints Reports system reviewed and no additional complaints, except as documented and Reports Abnormal speech present [facility] Past Medical History Medical History Burn injury Class 1 obesity due to excess calories with body mass index (BMI) of 30.0 to 30.9 in adult Delusional disorder Depression Encephalomalacia Epilepsy Expressive aphasia Gait instability GERD (gastroesophageal reflux disease) Hypomagnesemia Hyponatremia Hypotension IBS (irritable bowel syndrome) Mild recurrent major depression Overactive bladder Polyarthralgia Pre-op evaluation Pre-op examination Screening for cervical cancer Seizures Unsteady gait Urge urinary incontinence Urinary incontinence Surgical History H/O prior ablation treatment History of section History of skin graft History of tubal ligation History of tumor Surgical history unknown Family History Family History Father Heart problem Mother Diabetes Low blood pressure Family/Other Substance use disorder Mental health disorder Social History Social History Household Members: Other Household Members Other:: with daughter Housing: Apartment Do you presently have visiting nurse or other home services: Yes Unable to assess alcohol history related to: Refusing to respond Alcohol intake: never Patient Tobacco Use Status: Never used Tobacco e-Cigarette/Vaping Use: Never Used Second Hand Smoke Exposure: No Advance Directives: Yes Advance Directives on File: Yes Advance Directives Date on File: 01/09/23 service: No Current occupational status: disabled Current occupation: rt handed Sexual orientation: Straight/Heterosexual Gender identity: Female Cognitive needs: Yes (walker) Hearing needs: No Vision needs: Yes (glasses) Physical Exam Vital Signs: Vital Signs: Last Vital Signs Temp 98.6 F 05/10/23 15:31 Pulse 88 05/10/23 15:31 Resp 16 05/10/23 15:31 BP 98/64 05/10/23 15:31 Pulse Ox 98 05/10/23 15:31 O2 Del Method Room Air 05/10/23 15:31 BMI result Body Mass Index 27.0 Vital signs have been reviewed as appeared to be correct. Blood pressure normal. Heart rate normal. Respiration rate normal. Temperature normal. Oxygen saturation normal. Appearance: Alert. Oriented X3. No acute distress. Head: Normal external exam. Normocephalic. Atraumatic. No Cortes signs noted. No raccoon eyes noted Eyes: PERRLA. EOMI. Conjunctiva and sclera normal. Eyelids normal. ENT: TM's Normal. Pharynx normal. Uvula midline. Moist mucous membranes. No trismus noted. No drooling noted. No muffled voice noted. Neck: Normal inspection. Neck supple. FROM. No adenopathy. Thyroid Normal. No meningeal signs. No neck mass noted. CVS: Normal heart rate and rhythm. Heart sound normal. No murmurs noted. Pulses normal throughout. Respiratory: No respiratory distress. Painless inspiration. Breath sounds normal. No wheezes/rales/rhonchi noted. Chest nontender. No accessory muscle usage noted or decreased air movement noted. Abdomen: Soft and nontender. Bowel sounds normal in all 4 quadrants. No distention noted. No organomegaly noted. No visible injury noted. Back: Mild right CVA tenderness. Full range of motion noted. Skin: Skin warm and dry. Normal skin color. Normal skin turgor. No rashes/lesions/lacerations noted. Extremities: No lower extremity edema. Extremities exhibit normal range of motion. Extremities nontender. Neuro: Oriented X 3. Cranial nerve exam: II-XII are grossly intact No motor deficit. No sensory deficit. Reflexes normal. Course Course Course Narrative: 57-year-old female with history of seizure witnessed seizure by her family patient is taking for anti seizure medication had a previous evaluation by neurologist who recommended not to change her medication. Patient has no traumatic injury today, labs within baseline for the patient. Will discharge and follow up with Neurology as an outpatient. 9th right rib fracture appears to be old patient been complaining of it before the seizure today, normal respiratory rate, normal O2 sat. Family is requesting care team evaluation. Reevaluation(s) Reevaluation #1: Will start physician observation until care team evaluation. Time: 16:45 Medical Decision Making Differential Diagnosis Differential Diagnoses: The differential diagnosis associated with the presentation includes (Seizure, UTI, electrolyte abnormality, severe anemia, rib fracture.) Admission/Observation Consideration of admission/observation: Escalation of care including admission/observation considered Lab Data MDM Lab Attestation statement: I reviewed the patient's lab results. 05/10/23 13:45 05/10/23 13:45 Labs: Lab Results 05/10/23 05/10/23 05/10/23 Range/Units 13:45 13:45 14:04 WBC 5.0 (4.8-10.8) X10*3/uL RBC 4.07 L (4.20-5.50) X10*6/uL Hgb 12.7 (12.0-16.0) g/dl Hct 37.6 (37.0-47.0) % MCV 92.4 (80.0-98.0) fL MCH 31.2 (27.0-33.0) pg MCHC 33.8 (31.0-35.0) g/dl RDW 12.9 (11.0-16.0) % Plt Count 216 (160-400) X10*3/uL MPV 9.7 (9.4-12.3) fL Immature Gran % (Auto) 0.4 (0.0-0.4) % Neut % (Auto) 70.2 (45-73) % Lymph % (Auto) 16.2 L (20-40) % [place] % (Auto) 11.8 H (2-11) % Eos % (Auto) 0.4 (0-4) % Baso % (Auto) 1.0 (0-2) % Lymph # (Auto) 0.8 L (1.2-4.9) X10*3/uL [place] # (Auto) 0.6 (0.1-1.2) X10*3/uL Eos # (Auto) 0.0 (0.0-0.4) X10*3/uL Baso # (Auto) 0.1 (0.0-0.2) X10*3/uL Abs Immat Gran (auto) 0.02 (0.00-0.03) X10*3/uL Absolute Neuts (auto) 3.5 (2.0-8.3) x10*3/uL Absolute Nucleated RBC 0.000 (0.0-0.012) X10*3/uL Nucleated RBC % (auto) 0.0 (0.0-0.2) /100WBC Sodium 141 (135-145) mmol/L Potassium 4.2 (3.3-5.1) mmol/L Chloride 109 H (96-108) mmol/L Carbon Dioxide 25 (22-29) mmol/L Anion Gap 11 L (12-20) BUN 13 (9-16) mg/dL Creatinine 0.65 (0.5-1.4) mg/dL Estim Creat Clear Calc 101.8 Estimated GFR > 60 Random Glucose 88 (60-115) mg/dL Calcium 9.5 (8.4-10.2) mg/dL Urine Color Yellow Urine Appearance Clear Urine pH 6.5 (5.0-9.0) Ur Specific [place] 1.015 (1.005-1.025) Urine Protein Trace (Neg-Trace) mg/dL Urine Glucose (UA) Negative (Negative) mg/dL Urine Ketones Trace (Negative) mg/dL Urine Blood Negative (Negative) Urine Nitrite Negative (Negative) Ur Leukocyte Esterase Trace H (Negative) Urine RBC 3-5 H (0-2) /HPF Urine WBC 0-5 (0-5) /HPF Ur Squamous Epith Cells 0-2 (0-2) /HPF Urine Bacteria None Seen (None Seen) Hyaline Casts 0-2 (0-2) /LPF Independent Interpretation I performed an independent interpretation of an: Plain X-Ray (Right ribs and chest: No acute pathology.) Radiology Impression Discussion of test interpretation with radiology: I have reviewed the radiologist's reading. Discharge Plan Discharge Clinical Impression: Seizure, Closed rib fracture Patient Disposition: Home, Self-Care Instructions: Rib Fracture (ED), Epilepsy in Older Adults (ED) Prescriptions: No Action phenobarbital 30 mg Tablet 60 mg PO BEDTIME Qty: 60 0RF haloperidol 5 mg tablet 5 mg PO DAILY haloperidol 10 mg tablet 10 mg BEDTIME Aptiom 600 mg tablet 600 mg PO BEDTIME Xcopri 150 mg tablet 150 mg PO DAILY diclofenac sodium [Voltaren Arthritis Pain] 1 % gel 2 g topical QID Qty: 100 0RF Rx Instructions: apply to single elbow, wrist or hand; for hand includes palm/fingers/back of hand clobazam 10 mg tablet 25 mg PO DAILY (DME) diaper,brief,adult,disposable Misc See Rx Instructions .ROUTE .MEDSUPPLY Qty: 10 0RF Rx Instructions: As directed (DME) blood pressure monitor Kit See Rx Instructions .Route Qty: 1 0RF Rx Instructions: As directed lidocaine [Lidoderm] 5 % adhesive patch,medicated 1 patch topical DAILY Qty: 15 0RF Rx Instructions: leave on most painful area for up to 12 hrs alosetron [Lotronex] 0.5 mg tablet 0.5 mg PO BID Qty: 60 6RF Referrals: Daniel Hernandez MD [Physician] -
[2023-05-10 13:48] LABS: MANUAL DIFF FLAG NO
[2023-05-10 13:55] LABS: Basophils Absolute Auto 0.1 X10*3/uL (0.0-0.2); Eosinophils Percent Auto 0.4 % (0-4); Hematocrit 37.6 % (37.0-47.0); Hemoglobin 12.7 g/dl (12.0-16.0); Imm Gran Abs Auto 0.02 X10*3/uL (0.00-0.03); Imm Gran Pct Auto 0.4 % (0.0-0.4); Lymphocytes Absolute Auto 0.8 X10*3/uL (1.2-4.9); Lymphocytes Percent Auto 16.2 % (20-40); Mean Corpuscular HGB Conc 33.8 g/dl (31.0-35.0); Mean Corpuscular Hemoglobin 31.2 pg (27.0-33.0); Mean Corpuscular Volume 92.4 fL (80.0-98.0); Mean Platelet Volume 9.7 fL (9.4-12.3); Monocytes Absolute Auto 0.6 X10*3/uL (0.1-1.2); Monocytes Percent Auto 11.8 % (2-11); Neutrophils Absolute Auto 3.5 x10*3/uL (2.0-8.3); Neutrophils Percent Auto 70.2 % (45-73); Platelet Count 216 X10*3/uL (160-400); Red Blood Count 4.07 X10*6/uL (4.20-5.50); Red Cell Distribution Width 12.9 % (11.0-16.0)
[2023-05-10 14:01] LABS: Anion Gap 11 (12-20); Blood Urea Nitrogen 13 mg/dL (9-16); Calcium 9.5 mg/dL (8.4-10.2); Carbon Dioxide 25 mmol/L (22-29); Chloride 109 mmol/L (96-108); Creatinine Clr Calc Pharmacy 101.8; Estimated Glomerular Filt Rate > 60; Glucose Random 88 mg/dL (60-115); Potassium 4.2 mmol/L (3.3-5.1); Sodium 141 mmol/L (135-145)
[2023-05-10 14:16] LABS: Appearance Urine Clear; Color Urine Yellow; Glucose Urine UA Negative (Negative); Leukocyte Esterase Urine Trace (Negative); Nitrite Urine Negative (Negative); PH 6.5 (5.0-9.0); Specific Gravity - Urine 1.015 (1.005-1.025); UMIC TRIGGER UACC YES; Urine Blood Negative (Negative); Urine Ketones Trace mg/dL (Negative); Urine Protein Trace mg/dL (Neg-Trace)
[2023-05-10 14:22] LABS: Bacteria Urine None Seen (None Seen); Hyaline Casts Urine 0-2 /LPF (0-2); Squamous Epithelial Cell Urine 0-2 /HPF (0-2); WBC Urine 0-5 /HPF (0-5)
[2023-05-10 15:31] VITALS: BP 98/64; PULSE 88; RESP 16; TEMP 37; O2SAT 98
--- NOTE | 2023-05-10 16:28 | PC.NURSE ---
this RN assumed care of patient at 1500, pt has been resting comfortably on stretcher, offers no complaints to this RN, awaiting new MD orders at this time
--- NOTE | 2023-05-10 18:00 | PC.NURSE ---
this RN spoke with patient's daughter who verbalized that the patient should be seen by crisis. She thinks that the patient needs to be evaluated psychologically since she broke a tablet and has been on and off her medications. MD aware, pt is now physican obs awaiting care team
[2023-05-10 18:14] VITALS: BP 118/64; PULSE 78; RESP 16; O2SAT 98
--- NOTE | 2023-05-10 18:16 | PC.NURSE ---
Daughter at bedside, patient is resting comfortable, reports no pain, offers no complaints at this time. Awaiting care team evaluation. Diet order placed
[2023-05-10 20:19] LABS: Amphetamine Screen Urine Not Detected (Not Detect); Barbiturates, Urine POSITIVE (Not Detect); Benzodiazepines Screen Urine POSITIVE (Not Detect); Cannabinoid Screen Urine Not Detected (Not Detect); Cocaine Screen Urine Not Detected (Not Detect); Fentanyl, urine Not Detected (Not Detect); Opiate Screen Urine Not Detected (Not Detect); Phencyclidine Screen Urine Not Detected (Not Detect)
[2023-05-10 20:25] VITALS: BP 126/62; PULSE 109; RESP 18; TEMP 36.6
[2023-05-10 20:46] LABS: Ethanol < 10 mg/dL
[2023-05-10 22:35] VITALS: BP 101/60; PULSE 82; RESP 16; TEMP 36.9; O2SAT 95
--- NOTE | 2023-05-10 23:53 | PC.NURSE ---
report given to SCHUYLER Meredith in pod. Pt ambulating with steady gait with walker over to ED pod, offers no complaints to this RN, reports no pain. Continue plan of care for bedsearch
[2023-05-11 00:03] VITALS: BP 148/87; PULSE 103; RESP 18; O2SAT 95
[2023-05-11 00:30] LABS: COVID-19 Test Negative (Negative); IDNOW Serial# 08D9AD1C
[2023-05-11 02:28] VITALS: BP 104/62; PULSE 83; RESP 17; TEMP 36.7; O2SAT 95
--- NOTE | 2023-05-11 06:06 | PC.NURSE ---
Patient is currently in bed appears sleeping, did struggle to fall sleep, med rec completed/pending provider's approval, daughter called to verify medication but unable to get hold of her, Afghan speaking only, disposition per care team is section 12 inpatient bed search, patient is fall risk due to unsteady gait, use walker to ambulates requires supervision, behavior non concerning at this time but unpredictable, will continue to monitor.
--- NOTE | 2023-05-11 07:35 | PC.NURSE ---
pt was laying in bed and had an approx 30-45 second long , airway remained patent, post ictal immediately after and pt lifted from bed to stretcher and moved to the main ed
--- NOTE | 2023-05-11 07:36 | ECG_ITS ---
Test Reason : seizure Blood Pressure : / mmHG Vent. Rate : 118 BPM Atrial Rate : 118 BPM P-R Int : 144 ms QRS Dur : 070 ms QT Int : 330 ms P-R-T Axes : 042 045 030 degrees QTc Int : 462 ms Sinus tachycardia Otherwise normal ECG When compared with ECG of 09-FEB-2023 14:22, Heart rate has increased Referred By: Demetri Jovel Electronically Signed By:MARTA CESAR
[2023-05-11 07:38] LABS: Glucose, Whole Blood 169 mg/dL (60-115)
[2023-05-11 07:55] LABS: MANUAL DIFF FLAG NO
[2023-05-11 07:56] LABS: Basophils Absolute Auto 0.1 X10*3/uL (0.0-0.2); Eosinophils Percent Auto 0.6 % (0-4); Hematocrit 42.2 % (37.0-47.0); Hemoglobin 13.6 g/dl (12.0-16.0); Imm Gran Abs Auto 0.01 X10*3/uL (0.00-0.03); Imm Gran Pct Auto 0.2 % (0.0-0.4); Lymphocytes Absolute Auto 1.4 X10*3/uL (1.2-4.9); Lymphocytes Percent Auto 26.7 % (20-40); Mean Corpuscular HGB Conc 32.2 g/dl (31.0-35.0); Mean Corpuscular Hemoglobin 30.5 pg (27.0-33.0); Mean Corpuscular Volume 94.6 fL (80.0-98.0); Mean Platelet Volume 9.7 fL (9.4-12.3); Monocytes Absolute Auto 0.5 X10*3/uL (0.1-1.2); Monocytes Percent Auto 9.5 % (2-11); Neutrophils Absolute Auto 3.3 x10*3/uL (2.0-8.3); Platelet Count 246 X10*3/uL (160-400); Red Blood Count 4.46 X10*6/uL (4.20-5.50); Red Cell Distribution Width 13.1 % (11.0-16.0); White Blood Count 5.2 X10*3/uL (4.8-10.8)
[2023-05-11] MEDS: LORazepam 2 MG/ML VIAL IVPUSH (07:56)
[2023-05-11 08:04] LABS: INTERNATIONAL NORM RATIO 1.1 (0.9-1.1); Prothrombin Time 12.9 SEC (11.1-13.3)
--- NOTE | 2023-05-11 08:04 | PC.NURSE ---
Pt currently resting, IV inserted to left AC, ativan administered, labs pending.
[2023-05-11 08:07] LABS: Partial Thromboplastin Time 24.8 SEC (26.0-36.4)
[2023-05-11 08:11] LABS: Alanine Aminotransferase 103 U/L (0-31); Albumin Level 4.3 g/dL (3.5-5.0); Alkaline Phosphatase 205 U/L (39-117); Anion Gap 18 (12-20); Aspartate Amino Transferase 38 U/L (5-31); Bilirubin Total 0.4 mg/dL (0.0-1.0); Blood Urea Nitrogen 20 mg/dL (9-16); Calcium 9.8 mg/dL (8.4-10.2); Carbon Dioxide 22 mmol/L (22-29); Chloride 105 mmol/L (96-108); Creatinine Clr Calc Pharmacy 83.7; Estimated Glomerular Filt Rate > 60; Glucose Random 180 mg/dL (60-115); Lipase 34 U/L (8-78); Sodium 141 mmol/L (135-145)
--- NOTE | 2023-05-11 08:23 | PC.NURSE ---
Pt returned from CT, results pending.
[2023-05-11] MEDS: PHENobarbitaL sodium 65 MG/ML VIAL 100 MG IVPUSH (08:34)
--- NOTE | 2023-05-11 11:33 | PHA.MEDREC ---
Pharmacy Consult ? Medication Reconciliation Pharmacy has completed the medication reconciliation. Spoke to patient's daughter and patient's pharmacy to confirm meds. Patient's daughter states that patient has their meds managed by their visiting nurse, which is on vacation. She was able to provide a med list, however it was outdated (January 2023) and cross-referenced claim history with her med list. Called pharmacy to confirm unknown meds (Alosetron, risperidone). Per [facility], alosetron was last filled in February and insurance requires prior authorization now for medication, so patient hasn't picked up since then. Risperidone had no refills and patient's daughter confirmed that it was off current med list.
[2023-05-11] MEDS: Gabapentin 300 MG CAPSULE PO ×2 (14:09→20:53)
[2023-05-11] MEDS: Magnesium Oxide 400 MG TABLET PO (14:09)
--- NOTE | 2023-05-11 14:19 | PC.NURSE ---
PT amb to BR with walker and unsteady gait. PT appears to be confused. provider aware
--- NOTE | 2023-05-11 17:25 | PC.NURSE ---
spoke with patients daughter, patients current behavior is why she was sent for crisis. patient amb with steady gait will be going over to pod
--- NOTE | 2023-05-11 17:50 | PC.NURSE ---
Sent back over to pod due to fall.
--- NOTE | 2023-05-11 17:59 | PC.NURSE ---
patient has 2 lacs to back of head, provider will staple. daughter notified.
--- NOTE | 2023-05-11 18:45 | PC.NURSE ---
PT AMBULATED FROM MAIN ED TO POD GUIDED BY ED STAFF. PT WAS STANDING AT NURSES WAITING FOR HER ROOM TO BE CLEANED, PT FELL BACKWARD TO THE FLOOR, +HEAD STRIKE, NO LOC, DENIED HEADACHE, DIZZINESS. PT SEEN HOLDING BACK OF HEAD, SPOT OF LIGHT RED BLOOD NOTED ON PT'S HAND. CHARGE NURSE RHODA WAS NOTIFIED, PT BROUGHT BACK TO MAIN ER VIA STRETCHER. PT SEEN BY JAYNA SEARS. INCIDENT REPORT FILED IN COMPUTER AND PT'S DAUGHTER NANO DIEHL ([phone]) WAS NOTIFIED BY THIS RN. PT PLACED IN ED6.
[2023-05-11] MEDS: Lidocaine HCl 1%/Epi 1:100,000 10 ML VIAL INFILTRATI (19:02)
--- NOTE | 2023-05-11 19:39 | PC.NURSE ---
I assumed care of the pt at 1900. PA at bedside putting jakub into pt's wound on her head. Pt is A&Ox4, GCS 15, Armenian speaking only with sitter at bedside.
[2023-05-11] MEDS: PHENobarbitaL 30 MG TABLET 60 MG PO (20:53)
[2023-05-11] MEDS: HaloperidoL 5 MG TABLET PO (20:53)
[2023-05-11] MEDS: cloBAZam 10 MG TABLET 20 MG PO (21:31)
[2023-05-12 06:16] VITALS: BP 94/65; PULSE 80; RESP 14; O2SAT 98
--- NOTE | 2023-05-12 06:21 | PC.NURSE ---
Pt condition remained unchanged overnight. Pt has been asleep, Vital signs stable, no events overnight. Pt is still on a section 12 and a fall risk due to hx of seizures and frequent falls. Seizure precautions are in place. Due to staffing challenges, 1:1 observer is unavailable. manager lighting is aware. This lead technical writer has been closely observing the pt throughout the night. Pt is a bedsearch at this time.
--- NOTE | 2023-05-12 07:49 | PC.NURSE ---
patient seeping, respirations equal and unlabored patient shows no signs of distress.
[2023-05-12 09:52] VITALS: BP 123/69; PULSE 106; RESP 23; TEMP 37.1; O2SAT 98
[2023-05-12] MEDS: Magnesium Oxide 400 MG TABLET PO (09:53)
[2023-05-12] MEDS: Gabapentin 300 MG CAPSULE PO ×2 (09:53→20:54)
--- NOTE | 2023-05-12 11:10 | PC.NURSE ---
ambulated to bathroom with steady gait, report given to POD RN
[2023-05-12] MEDS: PHENobarbitaL 30 MG TABLET 60 MG PO (20:54)
[2023-05-12] MEDS: cloBAZam 10 MG TABLET 20 MG PO (20:54)
[2023-05-12] MEDS: HaloperidoL 5 MG TABLET PO (20:54)
[2023-05-12] MEDS: Acetaminophen 325 MG TABLET 650 MG PO (20:59)
[2023-05-12 22:03] VITALS: BP 126/61; PULSE 88; RESP 18; TEMP 36.6
--- NOTE | 2023-05-12 22:29 | PC.ADMIT ---
PT is a 57 year old iranian speaking cisgender female that arrived on this unit via wheelchair from the [facility] @ 17:20 and was placed on 5 minute safety checks due to fall in the ED. Legal status: conditional voluntary. PT has a medical hx of epilepsy which is medically managed with Phenobarbital and Onfi. PT was seen in the ED initially for seizures but family expressed concern for patient's mental health as she has been off of her baseline and recent agitation. PT smashed a tablet for unknown reasons at home. Family expresses that they have voiced this to her providers but no med adjustments have been made. Of note patient does have [facility] services that administers her medications however her Phenobarbital level was found to be sub-therapeutic at <2.0. PT did have 2 seizures while in the ED, one that resulted in a fall which required 6 jakub in total on her scalp, CT was negative. Collector Of Internal Revenue present during admission process. PT appears internally preoccupied and eye contact is intense with great difficulty concentrating. Legals signed, tx plan completed, and safety tool was not completed due to patients inability to concentrate @ this time. VS stable. Denies SI/HI AH/VH. Oriented to unit and given the opportunity to ask questions while anode adjuster at bedside. PT resting in bed at this time, in no apparent distress. Nothing further to report at this time.
--- NOTE | 2023-05-12 23:39 | PC.NURSE ---
late entry; senior government program analyst completed, no acute findings with skin. Large areas of skin scarring present- pt reports several skin grafts.
[2023-05-13 08:00] VITALS: BP 114/62; PULSE 85; RESP 16; TEMP 36.2; O2SAT 98
[2023-05-13] MEDS: Gabapentin 300 MG CAPSULE PO ×2 (08:09→21:18)
[2023-05-13] MEDS: Magnesium Oxide 400 MG TABLET PO (08:09)
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
[2023-05-13 18:00] VITALS: BP 124/68; PULSE 82; RESP 18; TEMP 36.8; O2SAT 99
[2023-05-13] MEDS: PHENobarbitaL 30 MG TABLET 60 MG PO (21:17)
[2023-05-13] MEDS: cloBAZam 10 MG TABLET 20 MG PO (21:17)
[2023-05-13] MEDS: HaloperidoL 5 MG TABLET PO (21:18)
[2023-05-14 06:00] VITALS: BP 118/70; PULSE 74; RESP 18; TEMP 36.6; O2SAT 99
[2023-05-14] MEDS: Gabapentin 300 MG CAPSULE PO ×2 (10:15→20:52)
[2023-05-14] MEDS: Acetaminophen 325 MG TABLET 650 MG PO (12:50)
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
[2023-05-14 17:20] LABS: Glucose, Whole Blood 94 mg/dL (60-115)
[2023-05-14 19:28] VITALS: BP 123/76; PULSE 102; RESP 18; TEMP 36.1; O2SAT 97
[2023-05-14] MEDS: cloBAZam 10 MG TABLET 20 MG PO (20:51)
[2023-05-14] MEDS: HaloperidoL 5 MG TABLET PO (20:52)
[2023-05-14] MEDS: PHENobarbitaL 30 MG TABLET 60 MG PO (20:52)
--- NOTE | 2023-05-15 | ECG_ITS ---
Test Reason : seizure, fall Blood Pressure : / mmHG Vent. Rate : 112 BPM Atrial Rate : 112 BPM P-R Int : 136 ms QRS Dur : 070 ms QT Int : 326 ms P-R-T Axes : 044 062 052 degrees QTc Int : 444 ms Sinus tachycardia Possible Right ventricular hypertrophy Abnormal ECG When compared with ECG of 11-MAY-2023 07:43, No significant change was found Referred By: Cecy Chavez Electronically Signed By:MARTA CESAR
[2023-05-15] MEDS: Magnesium Oxide 400 MG TABLET PO (08:33)
[2023-05-15] MEDS: Gabapentin 300 MG CAPSULE PO ×2 (08:33→21:50)
[2023-05-15 09:01] LABS: Estimated Average Glucose 94 mg/dL; Hemoglobin A1c % 4.9 % (<6.0)
[2023-05-15 09:03] LABS: Cholesterol 193 mg/dL (<200); HDL Cholesterol 60 mg/dL (>40); LDL Cholesterol Calculated 119 mg/dL (<100); Triglycerides 71 mg/dL (<150)
[2023-05-15 09:20] LABS: TSH reflex Free T4 1.49 uIU/mL (0.32-4.0); Thyroid Stimulating Hormone 1.49 uIU/mL (0.32-4.0); Vitamin D 25-OH Total 36.5 ng/mL (>30)
[2023-05-15 09:31] LABS: Folate 9.4 ng/mL (> or = 4.0); Vitamin B12 670 pg/mL (200-900)
[2023-05-15 09:38] VITALS: PULSE 72; RESP 16; TEMP 36.2; O2SAT 97
[2023-05-15 10:55] VITALS: BP 158/79; PULSE 107; RESP 18; TEMP 37.1; O2SAT 98
[2023-05-15 10:56] LABS: Glucose, Whole Blood 106 mg/dL (60-115)
[2023-05-15] MEDS: LORazepam 2 MG/ML VIAL IM (11:04)
[2023-05-15 12:25] VITALS: BP 122/71; PULSE 95; O2SAT 100
[2023-05-15 12:28] VITALS: BP 126/78; PULSE 97; O2SAT 100
[2023-05-15 12:30] VITALS: BP 131/67; PULSE 114; O2SAT 100
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
--- NOTE | 2023-05-15 13:04 | PC.NURSE ---
At 10:45am pt had an unwitnessed fall in her room most likely due to seizure. Vitals and blood sugar checked and WNL. Pt was bleeding from the back of her head. Rapid response was called. Pt was cleared by MD to move to bed. While in bed she had a witnessed seizure without injury. EKG showed sinus tach and right ventricular hypertrophy. Hospitalist saw patient and treated new head laceration with jakub. The site of the new injury is separate from the laceration she had from falling in the ED. Pt placed on 1:1 observation to prevent further falls. At 12:45 lab called with critical low phenobarbital level of 6.7. Reported result to clinical coordinator Allan and hospitalist Wyatt. Per pt's neurologist Dr. Barnes, her seizures will continue regardless of therapeutic levels of medication. Discussed possible move to medical floor, but because seizures are not treatable and pt has psych symptoms, decision was made for her to remain on M5 with 1:1 to prevent further injury when seizures occur.
[2023-05-15] MEDS: Acetaminophen 325 MG TABLET 650 MG PO (13:40)
--- NOTE | 2023-05-15 16:12 | PC.NURSE ---
Hospitalist Dr. Schneider made aware of changes to head CT.
[2023-05-15 16:52] LABS: Glucose, Whole Blood 96 mg/dL (60-115)
--- NOTE | 2023-05-15 17:18 | PM.NEUROCN ---
History of Present Illness Data of Consult Service Date: 05/15/23 Primary Care Provider: Unknown Physician HPI Reason for consult: Recurrent uncontrolled epilepsy and psychosis with poor medication complian This is a 57 y.o. Female who I hav etreated for > 20 yrs with recalcitrant epilepsy with multiple weekly seizures inspite of multiple combinations of anti epilesy drugs , a VNS stimulator with near max settings, and two epilepsy surgical procedures in [facility]. She is maintained on [id number] 1/2 tid, Clobazam 10mg bid and phenobarb 100mg hs. She has been recently non compliant and came in with undetectable phenobarb levels which means she has not taken it in over 2 weeks. Had multiple seizures with fall and injury to scalp in the hospital. She also has major psych issues with delusions and hallucinations at times. She has a hx of depression, psychotic agitation, and paranoia in the context of long standing refractory epilepsy and left parietal post surgical encephalomalacia. Hx of aphasia. Hx of falls. She is now admitted to the psych unit being off of her medication for awhile and acting erratically. She has frequent falls secondary to refractory seizures in spite of multiple AEDs, VNS stimulator and two surgical procedures for Sz control at [facility]. She gets seizures several days a week. In the psych unit she had a sudden fall with a sz. Review of Systems Review of Systems: General no headache no fever chills. CVS no chest pain, no palpitation. Respiratory no cough no sob Gastrointestinal no nausea no vomiting, no abdominal pain unable to obtain detailed review of system due to aphasia Constitutional: Constitutional: Reports no additional constitutional complaints Eyes: Eyes: Reports no additional eye complaints ENT: Reports system reviewed and no additional complaints, except as documented Cardiovascular: Cardiovascular: Reports no additional cardiovascular complaints Respiratory: Respiratory: Reports no additional respiratory complaints Gastrointestinal: Gastrointestinal: Reports no additional gastrointestinal complaints Musculoskeletal: Musculoskeletal: Reports no additional musculoskeletal complaints Integumentary/Breasts: Skin/Breast: Reports system reviewed and no additional complaints, except as docu Neurologic: Reports behavioral changes, Reports confusion and Reports seizure-like activity (hx) Psychiatric: Psychiatric: Reports abnormal sleep pattern, Reports behavioral changes, Reports change in appetite, Reports confusion, Reports paranoia and Reports suicidal ideation (denies) Endocrine: Endocrine: Reports no additional endocrine complaints Hematologic/Lymphatic: Hematologic/Lymphatic: Reports no additional hematologic/lymphatic complaints Allergic/Immunologic: Allergic/Immunologic: Reports no additional allergic/immunologic complaints PMFSH Past Medical History Medical History Burn injury Class 1 obesity due to excess calories with body mass index (BMI) of 30.0 to 30.9 in adult Delusional disorder Depression Encephalomalacia Epilepsy Expressive aphasia Gait instability GERD (gastroesophageal reflux disease) Hypomagnesemia Hyponatremia Hypotension IBS (irritable bowel syndrome) Mild recurrent major depression Overactive bladder Polyarthralgia Pre-op evaluation Pre-op examination Screening for cervical cancer Seizures Unsteady gait Urge urinary incontinence Urinary incontinence Family History Family History Father Heart problem Mother Diabetes Low blood pressure Family/Other Substance use disorder Mental health disorder Surgical History Surgical History H/O prior ablation treatment History of section History of skin graft History of tubal ligation History of tumor Surgical history unknown Social History Social History Household Members: Significant Other Household Members Other:: with daughter Housing: Apartment Do you presently have visiting nurse or other home services: Yes Unable to assess alcohol history related to: Refusing to respond Alcohol intake: never Patient Tobacco Use Status: Never used Tobacco Smoked in Last 30 Days: No e-Cigarette/Vaping Use: Never Used Second Hand Smoke Exposure: No Use of substances other than those prescribed or required for medical reasons: No Currently Displaying Signs/Symptoms of Drug Intoxication Withdrawal: No Any prior treatment program specific to substance use: No Do you feel safe in your current relationship?: Yes Is there a partner from a previous relationship who is making you feel unsafe now?: No Are you made to feel afraid or neglected: No Advance Directives: Yes Advance Directives on File: Yes Advance Directives Date on File: 01/09/23 Healthcare Proxy: Yes (Daughter Hamida Jackson) Guardian: No Do you have thoughts of harming others: None Do you have a plan to hurt others: No Plan Recently lost weight without trying: Unsure Nutrition Risks: No Nutritional Risk Patient : No : No Poor oral hygiene: No service: No Current occupational status: disabled Current occupation: rt handed Sexual orientation: Straight/Heterosexual Gender identity: Female Cognitive needs: Yes (walker) Hearing needs: No Vision needs: Yes (glasses) Meds Allergies Allergy/AdvReac Type Severity Reaction Status Date / Time Iodinated Contrast Media Allergy Intermediate RED ALL Verified 04/30/23 15:45 [IV Dye, Iodine Containing] OVER NAUSEA AND LOST RESPIRATIONS Penicillins [PENICILLINS] Allergy Intermediate Unknown Verified 04/30/23 15:45 phenytoin [From Dilantin] Allergy Intermediate gum Verified 04/30/23 15:45 swelling lamotrigine [From Lamictal] Allergy Unknown unknown Verified 04/30/23 15:45 Active Medications: Current Medications Acetaminophen (Acetaminophen 325 Mg Tablet) 650 mg PO Q6H PRN PRN Reason: Headache/Pain Mild Scale (1-3) Last Admin: 05/15/23 13:40 Dose: 650 mg Al Hydroxide/Mg Hydroxide (Magnesium Hydrox/Alum Hydrox 30 Ml Oral.Susp) 30 ml PO Q6H PRN PRN Reason: Heartburn/Nausea Clobazam (Clobazam 10 Mg Tablet) 20 mg PO BEDTIME [facility] Last Admin: 05/14/23 20:51 Dose: 20 mg Dicyclomine HCl (Dicyclomine Hcl 10 Mg Capsule) 20 mg PO BID PRN PRN Reason: Abdominal Pain Gabapentin (Gabapentin 300 Mg Capsule) 300 mg PO BID [facility] Last Admin: 05/15/23 08:33 Dose: 300 mg Haloperidol (Haloperidol 5 Mg Tablet) 5 mg PO BEDTIME [facility] Last Admin: 05/14/23 20:52 Dose: 5 mg Hydroxyzine HCl (Hydroxyzine Hcl 25 Mg Tablet) 25 mg PO Q6H PRN PRN Reason: Anxiety Magnesium Hydroxide (Milk Of Magnesia 30 Ml Oral.Susp) 30 ml PO DAILY PRN PRN Reason: Constipation Magnesium Oxide (Magnesium Oxide 400 Mg Tablet) 400 mg PO DAILY [facility] Last Admin: 05/15/23 08:33 Dose: 400 mg Non-Formulary Medication (Cenobamate [Xcopri]) 150 mg PO DAILY [facility] Non-Formulary Medication (Eslicarbazepine [Aptiom]) 600 mg PO BEDTIME [facility] Phenobarbital (Phenobarbital 30 Mg Tablet) 60 mg PO BEDTIME [facility] Last Admin: 05/14/23 20:52 Dose: 60 mg Trazodone HCl (Trazodone Hcl 50 Mg Tablet) 50 mg PO BEDTIME MRX1 PRN PRN Reason: Insomnia Home Medications Medication Instructions Recorded Confirmed Last Taken Type cenobamate 150 mg tablet (Xcopri) 150 mg PO DAILY 05/10/23 05/11/23 Unknown History clobazam 20 mg tablet 20 mg PO BEDTIME 05/10/23 05/11/23 Unknown History eslicarbazepine 600 mg tablet 600 mg PO BEDTIME 05/10/23 05/11/23 Unknown History (Aptiom) gabapentin 300 mg capsule 300 mg PO BID 05/10/23 05/11/23 Unknown History magnesium oxide 400 mg (241.3 mg 400 mg PO DAILY 05/10/23 05/11/23 Unknown History magnesium) tablet clobazam 10 mg tablet 5 mg PO DAILY 05/11/23 05/11/23 Unknown History diclofenac sodium 1 % topical gel 2 g topical QID PRN Pain 05/11/23 05/11/23 Unknown History dicyclomine 10 mg capsule 20 mg PO BID PRN Abdominal Pain 05/11/23 05/11/23 Unknown History haloperidol 5 mg tablet 5 mg PO BEDTIME 05/11/23 05/11/23 Unknown History phenobarbital 60 mg tablet 60 mg PO BEDTIME 05/11/23 05/11/23 Unknown History Physical Exam Vital Signs: Vital Signs: Last Vital Signs Temp 98.8 F 05/15/23 10:55 Pulse 114 H 05/15/23 12:30 Resp 18 05/15/23 10:55 BP 131/67 05/15/23 12:30 Pulse Ox 100 05/15/23 12:30 O2 Del Method Room Air 05/15/23 12:30 BMI result Body Mass Index 27.0 Const: Other: General awake alert head, laceration with bleeding at occipital area, noted to have is jakub at 2 other sites of laceration back of head. Neck supple no JVD. CVS regular rate rhythm, Respiratory lungs clear to auscultation, no respiratory distress, no wheezei. Gastrointestinal abdomen soft, nontender, bowel sounds audible Extremities no edema. Neuro moving all 4 extremity Skin no rash General: confusion Orientation/consciousness: confusion Neuro: Other: lethargic and slow with non focal exam. Scalp hematomas noted General: confusion Results Labs 05/11/23 07:51 05/11/23 07:51 Assessment and Plan (1) Seizure: Status: Acute (2) Epilepsy: Status: Acute Recalcitrant epilepsy ( See my history) Recom. IV Phenobarbital 300mg over 1 hr an drestart Phenobarb 100mg hs. Check level tomorrow after 24 hrs. Continue Aptiom 600mg in am an d900mg in pm. Xcopri 150mgand clobazam 5mg in am and 20mg hs Plan seizure and fall rapid response call since patient had a sudden fall at M5, was found on the floor , face up bleeding from back of head. blood sugar greater than 100, blood pressure stable, EKG showed no arrhythmia, sinus tach with no ischemia. during examination patient noted to have a seizure with tonic-clonic activity upper extremity lasted less than couple minutes noted to have a new laceration back of head, close to a previous laceration sutured in the ED. patient is receiving all home medications phenobarb 60 mg at bedtime, gabapentin 300 b.i.d. and clobazam 20 mg at bedtime patient treated with 2 mg of Ativan, will increase dose of phenobarb 100 mg, follow levels at 48 hours called ED to suture the laceration will obtain CT head due to head injury. reviewed old records that showed that patient has history of depression, psychosis,with history of longstanding refractive epilepsy and encephalomalacia and history of aphasia,?has frequent falls secondary to refractory seizures in spite of multiple AEDs, VNS stimulator and two surgical procedures for Sz control at [facility]. She gets seizures daily, phenobarb level less than 2 on 05/11, patient received 100 mg of IV phenobarb in the emergency room repeat phenobarb level today is 6.7. case discussed with Dr. Barnes who informed the patient has Recalcitrant epilepsy, and will continue to have seizure frequently every week and she has failed all meds and combinations, mainstay of treatment is injury protection. Time Spent With Patient Time: Total time managing care of this patient today ____ minutes. Procedures Date of Service Date of Service: 05/15/23
--- NOTE | 2023-05-15 18:26 | P.PNPSI_ITS ---
Subjective Subjective Date of Service: 05/15/23 Reason For Visit: psychosis Subjective Notes: Conditional Voluntary Healthcare Proxy: No Guardianship: No Medical Problems Affecting Mental Status: Yes (seizure disorder) Interim History: Rapid response called s/p sx of feeling faint and lightheaded, resulting fall, laceration to head, resulting seizure. EKG WNL, Blood sugar 106, Phenobarbital level 6.7 which was increased. Pt required sutures/CAT/Hospitalist coverage. Per team, medical goal is injury protection as seizures cannot be controlled. Care discussed with daughter Hamida who reports that med doses were adjusted as pt was too sedate, unable to communicate with family, groggy. Family is not able to understand pt's needs. With med changes, anxiety has increased along with seizure activity. OP pharmacy team has warned Hamida that use of Haldol will make seizure regime less efficicent. Pt has has several injuries from falling due to sedation including spinal injury. Discussed neurology coverage-Hamida reports pt has excellent, comprehensive coverage with Dr. Barnes and Dr. Cordero of [facility]. Pt last seen by Dr. Cordero in December 2022. Call to Dr. Cordero's office [phone]. Care review with Dr. Ricardo Ward, covering today. Dr. Ward suggests adding Aptiom 600 mg a.m and increasing HS dosing to 900 mg. This increase should not cause an increase in sedation for pt and should offer improved control. If this is not effective he suggests adding onfi 5 mg a.m. and keeping HS 20 mg dose. Reviewed December appt. pt was sedate-she and family were not wanting to make changes at that time due to sedation, so decreases were made. Prior to decreases pt reported much improved control of sx. In a telehealth appt in March, pt decreased doses again d/t sedation. Next appt Jul 2023. Text to Dr. Barnes to see if he agreed with suggestions. He affirmed, Aptiom will be changed. Daughter will bring in her supply this evening. Met with pt and team who interpreted. She is reluctant to make changes d/t sedation, however is fearful of seizure. Discussed consultation process with both neurology teams. Pt agrees to trial this one med change at this time. Discussed epilepsy head protection (ribcap seizure helmet). Pt is interested in this protection. Medication Compliance: Yes Side effects from medications: Yes (??) Attending Groups: No Review of Systems Acute medical concerns: Yes Review of Systems: Followed by hospitalist s/p fall, seizure today Mental Status Exam Mental Status Exam Patient Appearance: Fatigued Patient Orientation: Person, Place and Situation Level of Consciousness: Alert Patient Behavior: Appropriate, Talkative and Good Eye Contact Mood Description: Withdrawn Affect Description: Flat Patient Cognition Impaired: No Ability to Follow Directions: Good Speech Pattern: Spontaneous Speech Memory Description: Remote Impaired and Episodic Impaired Hallucinations: None Delusions: Not Present Thought Process: Distracted and Rumination Thought Content: positive for Perseveration Depressive Symptoms: Hopelessness and Thoughts of /Suicide (denies) Judgement: Fair Diagnostics Vital Signs (24Hr): Vital Signs - 24 hr 05/14/23 19:28 05/15/23 09:38 05/15/23 10:55 Temperature 97.0 F 97.2 F 98.8 F Pulse Rate 102 H 72 107 H Respiratory Rate 18 16 18 Blood Pressure 123/76 158/79 H Pulse Oximetry 97 97 98 Oxygen Delivery Method Room Air Room Air Room Air 05/15/23 12:25 05/15/23 12:28 05/15/23 12:30 Temperature Pulse Rate 95 97 114 H Respiratory Rate Blood Pressure 122/71 126/78 131/67 Pulse Oximetry 100 100 100 Oxygen Delivery Method Room Air Room Air BMI result Body Mass Index 27.0 Labs 05/11/23 07:51 05/11/23 07:51 Labs: Laboratory Results - last 48 hr 05/14/23 05/15/23 05/15/23 17:16 08:11 08:11 POC Glucose 94 Estimat Average Glucose 94 Hemoglobin A1c % 4.9 Triglycerides 71 Cholesterol 193 LDL Cholesterol, Calc 119 H HDL Cholesterol 60 Vitamin B12 25-OH Vitamin D Total 36.5 Folate TSH 1.49 Phenobarbital 05/15/23 05/15/23 05/15/23 08:11 10:52 11:46 POC Glucose 106 Estimat Average Glucose Hemoglobin A1c % Triglycerides Cholesterol LDL Cholesterol, Calc HDL Cholesterol Vitamin B12 670 25-OH Vitamin D Total Folate 9.4 TSH Phenobarbital 6.7 L* 05/15/23 16:48 POC Glucose 96 Estimat Average Glucose Hemoglobin A1c % Triglycerides Cholesterol LDL Cholesterol, Calc HDL Cholesterol Vitamin B12 25-OH Vitamin D Total Folate TSH Phenobarbital Imaging Radiology Impressions: ITS Impressions Ribs X-Ray 05/10/23 14:35 IMPRESSION: Right ninth rib fractures involving both the posterior and lateral aspect. No pneumothorax. Head CT 05/11/23 08:14 IMPRESSION: No acute intracranial pathology. Cervical Spine CT 05/11/23 18:34 IMPRESSION: 1. No acute intracranial abnormality. 2. Straightening of the expected cervical spine curvature. 3. No fracture. Head CT 05/11/23 18:34 IMPRESSION: 1. No acute intracranial abnormality. 2. Straightening of the expected cervical spine curvature. 3. No fracture. Head CT 05/15/23 14:03 IMPRESSION: 1. No acute intracranial pathology. Chronic changes as detailed above without significant change. 2. Small right superior parietal and left superior subgaleal hematomas with overlying skin clips. Correlate with physical exam. Medications Medications Current Medications Acetaminophen (Acetaminophen 325 Mg Tablet) 650 mg PO Q6H PRN PRN Reason: Headache/Pain Mild Scale (1-3) Last Admin: 05/15/23 13:40 Dose: 650 mg Al Hydroxide/Mg Hydroxide (Magnesium Hydrox/Alum Hydrox 30 Ml Oral.Susp) 30 ml PO Q6H PRN PRN Reason: Heartburn/Nausea Clobazam (Clobazam 10 Mg Tablet) 20 mg PO BEDTIME [facility] Last Admin: 05/14/23 20:51 Dose: 20 mg Dicyclomine HCl (Dicyclomine Hcl 10 Mg Capsule) 20 mg PO BID PRN PRN Reason: Abdominal Pain Gabapentin (Gabapentin 300 Mg Capsule) 300 mg PO BID [facility] Last Admin: 05/15/23 08:33 Dose: 300 mg Haloperidol (Haloperidol 5 Mg Tablet) 5 mg PO BEDTIME [facility] Last Admin: 05/14/23 20:52 Dose: 5 mg Hydroxyzine HCl (Hydroxyzine Hcl 25 Mg Tablet) 25 mg PO Q6H PRN PRN Reason: Anxiety Magnesium Hydroxide (Milk Of Magnesia 30 Ml Oral.Susp) 30 ml PO DAILY PRN PRN Reason: Constipation Magnesium Oxide (Magnesium Oxide 400 Mg Tablet) 400 mg PO DAILY [facility] Last Admin: 05/15/23 08:33 Dose: 400 mg Non-Formulary Medication (Cenobamate [Xcopri]) 150 mg PO DAILY [facility] Non-Formulary Medication (Eslicarbazepine [Aptiom]) 600 mg PO BEDTIME [facility] Phenobarbital (Phenobarbital 30 Mg Tablet) 60 mg PO BEDTIME [facility] Last Admin: 05/14/23 20:52 Dose: 60 mg Trazodone HCl (Trazodone Hcl 50 Mg Tablet) 50 mg PO BEDTIME MRX1 PRN PRN Reason: Insomnia Allergies Allergies Allergy/AdvReac Type Severity Reaction Status Date / Time Iodinated Contrast Media Allergy Intermediate RED ALL Verified 04/30/23 15:45 [IV Dye, Iodine Containing] OVER NAUSEA AND LOST RESPIRATIONS Penicillins [PENICILLINS] Allergy Intermediate Unknown Verified 04/30/23 15:45 phenytoin [From Dilantin] Allergy Intermediate gum Verified 04/30/23 15:45 swelling lamotrigine [From Lamictal] Allergy Unknown unknown Verified 04/30/23 15:45 Assessment & Plan Assessment & Plan (1) Seizure: Status: Acute Code(s): R56.9 - Unspecified convulsions (2) Epilepsy: Status: Acute Code(s): G40.909 - Epilepsy, unspecified, not intractable, without status epilepticus Assessment and Plan: Recalcitrant epilepsy ( See my history) Recom. IV Phenobarbital 300mg over 1 hr an drestart Phenobarb 100mg hs. Check level tomorrow after 24 hrs. Continue Aptiom 600mg in am an d900mg in pm. Xcopri 150mgand clobazam 5mg in am and 20mg hs Plan seizure and fall rapid response call since patient had a sudden fall at M5, was found on the floor , face up bleeding from back of head. blood sugar greater than 100, blood pressure stable, EKG showed no arrhythmia, sinus tach with no ischemia. during examination patient noted to have a seizure with tonic-clonic activity upper extremity lasted less than couple minutes noted to have a new laceration back of head, close to a previous laceration sutured in the ED. patient is receiving all home medications phenobarb 60 mg at bedtime, gabapentin 300 b.i.d. and clobazam 20 mg at bedtime patient treated with 2 mg of Ativan, will increase dose of phenobarb 100 mg, follow levels at 48 hours called ED to suture the laceration will obtain CT head due to head injury. reviewed old records that showed that patient has history of depression, psychosis,with history of longstanding refractive epilepsy and encephalomalacia and history of aphasia,?has frequent falls secondary to refractory seizures in spite of multiple AEDs, VNS stimulator and two surgical procedures for Sz control at [facility]. She gets seizures daily, phenobarb level less than 2 on 05/11, patient received 100 mg of IV phenobarb in the emergency room repeat phenobarb level today is 6.7. case discussed with Dr. Barnes who informed the patient has Recalcitrant epilepsy, and will continue to have seizure frequently every week and she has failed all meds and combinations, mainstay of treatment is injury protection. 05/15/23 Increase Aptiom to 600 mg a.m. 900 mg hs per recommendation of Dr. Ward of [facility]. Dr. Barnes is in agreement as is pt. Haldol level Patient educated on: therapeutic strategies Informed Consent: further education needed Reason for continued inpatient stay Substantial Risk for: med/psych decompensation Time Spent With Patient Time: Total time managing care of this patient today ____ minutes.
[2023-05-15 20:30] VITALS: BP 111/67; PULSE 92; RESP 16; TEMP 36.4; O2SAT 98
[2023-05-15] MEDS: cloBAZam 10 MG TABLET 20 MG PO (21:50)
[2023-05-15] MEDS: HaloperidoL 5 MG TABLET PO (21:50)
[2023-05-15] MEDS: PHENobarbitaL 30 MG TABLET 60 MG PO (21:50)
--- NOTE | 2023-05-15 23:14 | PC.NURSE ---
Pt is calm and cooperative, Meds compliant. Staple wound site at the back of her head observed to be draining fluid[ serum]. Staple still intact and no fresh wound observed. Pt noted to be lying down with the back of the head all day. on call pharmacy technician provider and hospitalist informed.
[2023-05-16 08:25] VITALS: BP 111/65; PULSE 84; RESP 16; TEMP 36.6; O2SAT 98
[2023-05-16] MEDS: Gabapentin 300 MG CAPSULE PO ×2 (08:26→22:26)
[2023-05-16] MEDS: Magnesium Oxide 400 MG TABLET PO (08:26)
[2023-05-16] MEDS: Acetaminophen 325 MG TABLET 650 MG PO (11:13)
--- NOTE | 2023-05-16 13:03 | HO.PSYCHPN ---
Subjective Subjective Date of Service: 05/16/23 Reason For Visit: psychosis Subjective Notes: Conditional Voluntary Healthcare Proxy: Yes Guardianship: No Medical Problems Affecting Mental Status: Yes Interim History: One to one in place. Visable in milieu. Measured for seizure helmet which is ordered. Phenobarbital increased Aption increased Onfi to increase 05/17. No seizure activity noted as of this writing. Interactive, no anxiety observed, continues confused Medication Compliance: Yes Side effects from medications: No Attending Groups: Intermittent Review of Systems Acute medical concerns: No Medical Review of Systems: unchanged Mental Status Exam Mental Status Exam Patient Appearance: Fatigued Patient Orientation: Person, Place and Situation Level of Consciousness: Alert Patient Behavior: Appropriate, Talkative and Good Eye Contact Mood Description: Withdrawn Affect Description: Flat Patient Cognition Impaired: No Ability to Follow Directions: Good Speech Pattern: Spontaneous Speech Memory Description: Remote Impaired and Episodic Impaired Hallucinations: None Delusions: Not Present Thought Process: Distracted and Rumination Thought Content: positive for Perseveration Depressive Symptoms: Hopelessness and Thoughts of /Suicide (denies) Judgement: Fair Diagnostics Vital Signs (24Hr): Vital Signs - 24 hr 05/15/23 20:30 05/16/23 08:25 Temperature 97.6 F 98 F Pulse Rate 92 84 Respiratory Rate 16 16 Blood Pressure 111/67 111/65 Pulse Oximetry 98 98 Oxygen Delivery Method Room Air Room Air BMI result Body Mass Index 27.0 Labs 05/11/23 07:51 05/11/23 07:51 Labs: Laboratory Results - last 48 hr 05/14/23 05/15/23 05/15/23 17:16 08:11 08:11 POC Glucose 94 Estimat Average Glucose 94 Hemoglobin A1c % 4.9 Triglycerides 71 Cholesterol 193 LDL Cholesterol, Calc 119 H HDL Cholesterol 60 Vitamin B12 25-OH Vitamin D Total 36.5 Folate TSH 1.49 Phenobarbital 05/15/23 05/15/23 05/15/23 08:11 10:52 11:46 POC Glucose 106 Estimat Average Glucose Hemoglobin A1c % Triglycerides Cholesterol LDL Cholesterol, Calc HDL Cholesterol Vitamin B12 670 25-OH Vitamin D Total Folate 9.4 TSH Phenobarbital 6.7 L* 05/15/23 16:48 POC Glucose 96 Estimat Average Glucose Hemoglobin A1c % Triglycerides Cholesterol LDL Cholesterol, Calc HDL Cholesterol Vitamin B12 25-OH Vitamin D Total Folate TSH Phenobarbital Imaging Radiology Impressions: ITS Impressions Ribs X-Ray 05/10/23 14:35 IMPRESSION: Right ninth rib fractures involving both the posterior and lateral aspect. No pneumothorax. Head CT 05/11/23 08:14 IMPRESSION: No acute intracranial pathology. Cervical Spine CT 05/11/23 18:34 IMPRESSION: 1. No acute intracranial abnormality. 2. Straightening of the expected cervical spine curvature. 3. No fracture. Head CT 05/11/23 18:34 IMPRESSION: 1. No acute intracranial abnormality. 2. Straightening of the expected cervical spine curvature. 3. No fracture. Head CT 05/15/23 14:03 IMPRESSION: 1. No acute intracranial pathology. Chronic changes as detailed above without significant change. 2. Small right superior parietal and left superior subgaleal hematomas with overlying skin clips. Correlate with physical exam. Medications Medications Current Medications Acetaminophen (Acetaminophen 325 Mg Tablet) 650 mg PO Q6H PRN PRN Reason: Headache/Pain Mild Scale (1-3) Last Admin: 05/16/23 11:13 Dose: 650 mg Al Hydroxide/Mg Hydroxide (Magnesium Hydrox/Alum Hydrox 30 Ml Oral.Susp) 30 ml PO Q6H PRN PRN Reason: Heartburn/Nausea Clobazam (Clobazam 10 Mg Tablet) 20 mg PO BEDTIME [facility] Last Admin: 05/15/23 21:50 Dose: 20 mg Clobazam (Clobazam 10 Mg Tablet) 5 mg PO DAILY [facility] Dicyclomine HCl (Dicyclomine Hcl 10 Mg Capsule) 20 mg PO BID PRN PRN Reason: Abdominal Pain Gabapentin (Gabapentin 300 Mg Capsule) 300 mg PO BID [facility] Last Admin: 05/16/23 08:26 Dose: 300 mg Haloperidol (Haloperidol 5 Mg Tablet) 5 mg PO BEDTIME [facility] Last Admin: 05/15/23 21:50 Dose: 5 mg Hydroxyzine HCl (Hydroxyzine Hcl 25 Mg Tablet) 25 mg PO Q6H PRN PRN Reason: Anxiety Magnesium Hydroxide (Milk Of Magnesia 30 Ml Oral.Susp) 30 ml PO DAILY PRN PRN Reason: Constipation Magnesium Oxide (Magnesium Oxide 400 Mg Tablet) 400 mg PO DAILY [facility] Last Admin: 05/16/23 08:26 Dose: 400 mg Non-Formulary Medication (Cenobamate [Xcopri]) 150 mg PO DAILY [facility]; Protocol Last Admin: 05/16/23 08:23 Dose: 150 mg Non-Formulary Medication (Eslicarbazepine (Aptiom)) 600 mg PO DAILY [facility] Last Admin: 05/16/23 08:27 Dose: 600 mg Non-Formulary Medication (Eslicarbazepine (Aptiom) ) 900 mg PO BEDTIME [facility] Last Admin: 05/15/23 22:05 Dose: 900 mg Phenobarbital (Phenobarbital 100 Mg Tablet) 100 mg PO BEDTIME [facility] Trazodone HCl (Trazodone Hcl 50 Mg Tablet) 50 mg PO BEDTIME MRX1 PRN PRN Reason: Insomnia Allergies Allergies Allergy/AdvReac Type Severity Reaction Status Date / Time Iodinated Contrast Media Allergy Intermediate RED ALL Verified 04/30/23 15:45 [IV Dye, Iodine Containing] OVER NAUSEA AND LOST RESPIRATIONS Penicillins [PENICILLINS] Allergy Intermediate Unknown Verified 04/30/23 15:45 phenytoin [From Dilantin] Allergy Intermediate gum Verified 04/30/23 15:45 swelling lamotrigine [From Lamictal] Allergy Unknown unknown Verified 04/30/23 15:45 Assessment & Plan Assessment & Plan (1) Seizure: Status: Acute Code(s): R56.9 - Unspecified convulsions (2) Epilepsy: Status: Acute Code(s): G40.909 - Epilepsy, unspecified, not intractable, without status epilepticus Assessment and Plan: Recalcitrant epilepsy ( See my history) Recom. IV Phenobarbital 300mg over 1 hr an drestart Phenobarb 100mg hs. Check level tomorrow after 24 hrs. Continue Aptiom 600mg in am an d900mg in pm. Xcopri 150mgand clobazam 5mg in am and 20mg hs Plan seizure and fall rapid response call since patient had a sudden fall at M5, was found on the floor , face up bleeding from back of head. blood sugar greater than 100, blood pressure stable, EKG showed no arrhythmia, sinus tach with no ischemia. during examination patient noted to have a seizure with tonic-clonic activity upper extremity lasted less than couple minutes noted to have a new laceration back of head, close to a previous laceration sutured in the ED. patient is receiving all home medications phenobarb 60 mg at bedtime, gabapentin 300 b.i.d. and clobazam 20 mg at bedtime patient treated with 2 mg of Ativan, will increase dose of phenobarb 100 mg, follow levels at 48 hours called ED to suture the laceration will obtain CT head due to head injury. reviewed old records that showed that patient has history of depression, psychosis,with history of longstanding refractive epilepsy and encephalomalacia and history of aphasia,?has frequent falls secondary to refractory seizures in spite of multiple AEDs, VNS stimulator and two surgical procedures for Sz control at [facility]. She gets seizures daily, phenobarb level less than 2 on 05/11, patient received 100 mg of IV phenobarb in the emergency room repeat phenobarb level today is 6.7. case discussed with Dr. Barnes who informed the patient has Recalcitrant epilepsy, and will continue to have seizure frequently every week and she has failed all meds and combinations, mainstay of treatment is injury protection. 05/15/23 Increase Aptiom to 600 mg a.m. 900 mg hs per recommendation of Dr. Ward of [facility]. [place]. Barnes is in agreement as is pt. Haldol level 05/16/23 Increased Phenobarbital as noted by neurology to 100 mg Onfi 5 mg a.m. to begin 05/17 Continue to monitor for symptoms Informed Consent: does not understand Reason for continued inpatient stay Substantial Risk for: med/psych decompensation Time Spent With Patient Time: Total time managing care of this patient today ____ minutes.
[2023-05-16 21:00] VITALS: BP 87/50; PULSE 92; RESP 18; TEMP 36.3; O2SAT 97
--- NOTE | 2023-05-16 21:09 | PC.NURSE ---
Addendum entered by Nancy Shell RN 05/17/23 15:59: late entry; ok to give all evening meds per Dr. Pulido. Encouraged pt stay in bed for the evening. Original Note: This nurse approached pt with stack clerk to check in, take vitals and administer evening medications. PT was lying in bed with mask on, 1:1 sitter at bedside. BP found to be 87/50 with a HR of 92. PT denies any dizziness or lightheadedness. call center consultant, Dr. Jeramie Pulido notified of vital signs and hx of falls while in the hospital. Awaiting further orders regarding administration of evening medications. PT reports she feels okay and does not have any questions or concerns for this RN. PT denies all psych sx however appears to be thought blocking and reacting to internal stimuli during interaction.
[2023-05-16] MEDS: cloBAZam 10 MG TABLET 20 MG PO (22:25)
[2023-05-16] MEDS: HaloperidoL 5 MG TABLET PO (22:26)
[2023-05-17] MEDS: cloBAZam 10 MG TABLET 5 MG PO (08:29)
[2023-05-17] MEDS: Magnesium Oxide 400 MG TABLET PO (08:29)
[2023-05-17] MEDS: Gabapentin 300 MG CAPSULE PO (08:29)
[2023-05-17 08:30] VITALS: BP 116/68; PULSE 107; RESP 18; TEMP 36.6; O2SAT 95
[2023-05-17] MEDS: Acetaminophen 325 MG TABLET 650 MG PO (11:02)
--- NOTE | 2023-05-17 14:44 | HO.PSYCHPN ---
Subjective Subjective Date of Service: 05/17/23 Reason For Visit: psychosis Subjective Notes: Conditional Voluntary Healthcare Proxy: Yes Guardianship: No Medical Problems Affecting Mental Status: No Interim History: Team report seizure activity early this a.m. No injury reported by team. CAT Scan completed. Pt was consulted by Dr. Gallegos. CBCD/Phenobarbital levels to be drawn 05/18 Onfi, Aption and Phenobarbital doses are increased. Onfi increase was this a.m. Dr. Barnes updated. No new neurology recommendations today. Dr. Ansari, acting [employer] mechanic, consulted regarding pt's current needs/status/treatment planning. Attempted to meet with pt and OT director Angella Silva OTJemal/Eliud. Pt was irritable, confrontive. She insists that I am not her provider as I am too white . Verbally agitated. Conversation was stopped due to risk of furthering agitation, risking restraint, seizure. Pt is visable in the milieu. She believes she does not belong on a psychiatric unit given her medical issues. Message left with [facility] to gather prescribing trials-per record, Risperdal, Invega Sustenna 156mg, Haldol 15mg, Abilify 30mg. Medication Compliance: Yes Side effects from medications: Yes (? seizure activity as SE of meds) Attending Groups: No Review of Systems Acute medical concerns: Yes epilepsy Medical Review of Systems: unchanged Mental Status Exam Mental Status Exam Patient Appearance: Fatigued Patient Orientation: Person, Place and Situation Level of Consciousness: Alert Patient Behavior: Guarded, Talkative, Suspicious, Aggressive (verbally), Anxious, Distractible, Confused and Good Eye Contact Mood Description: Withdrawn, Hostile and Labile Affect Description: Labile Patient Cognition Impaired: Yes Ability to Follow Directions: Fair Speech Pattern: Perseverating, Spontaneous Speech and Soft-Spoken Memory Description: Remote Impaired and Episodic Impaired Delusions: Present Perceptual Disturbances: Derealization Thought Process: Illogical and Confusion Thought Content: positive for [place] and positive for Perseveration Depressive Symptoms: Increased Irritability Abnormal Motor Activity Signs and Symptoms: Aggression (verbal) and Agitation Judgement: Poor Diagnostics Vital Signs (24Hr): Vital Signs - 24 hr 05/16/23 21:00 05/17/23 08:30 Temperature 97.4 F 97.8 F Pulse Rate 92 107 H Respiratory Rate 18 18 Blood Pressure 87/50 L 116/68 Pulse Oximetry 97 95 Oxygen Delivery Method Room Air BMI result Body Mass Index 27.0 Labs 05/11/23 07:51 05/11/23 07:51 Labs: Laboratory Results - last 48 hr 05/15/23 16:48 POC Glucose 96 Imaging Radiology Impressions: ITS Impressions Ribs X-Ray 05/10/23 14:35 IMPRESSION: Right ninth rib fractures involving both the posterior and lateral aspect. No pneumothorax. Head CT 05/11/23 08:14 IMPRESSION: No acute intracranial pathology. Cervical Spine CT 05/11/23 18:34 IMPRESSION: 1. No acute intracranial abnormality. 2. Straightening of the expected cervical spine curvature. 3. No fracture. Head CT 05/11/23 18:34 IMPRESSION: 1. No acute intracranial abnormality. 2. Straightening of the expected cervical spine curvature. 3. No fracture. Head CT 05/15/23 14:03 IMPRESSION: 1. No acute intracranial pathology. Chronic changes as detailed above without significant change. 2. Small right superior parietal and left superior subgaleal hematomas with overlying skin clips. Correlate with physical exam. Head CT 05/17/23 09:13 IMPRESSION: 1. There are no acute bleeds or territorial infarcts. No masses are demonstrated. 2. The study redemonstrates the sequelae of the high right greater than left scalp hematomas/lacerations. 3. There are no acute osseous findings; there are sequelae of a left high parietal craniotomy. 4. The study redemonstrates encephalomalacia and gliosis in the left parieto-occipital region, unchanged. Medications Medications Current Medications Acetaminophen (Acetaminophen 325 Mg Tablet) 650 mg PO Q6H PRN PRN Reason: Headache/Pain Mild Scale (1-3) Last Admin: 05/17/23 11:02 Dose: 650 mg Al Hydroxide/Mg Hydroxide (Magnesium Hydrox/Alum Hydrox 30 Ml Oral.Susp) 30 ml PO Q6H PRN PRN Reason: Heartburn/Nausea Clobazam (Clobazam 10 Mg Tablet) 20 mg PO BEDTIME [facility] Last Admin: 05/16/23 22:25 Dose: 20 mg Clobazam (Clobazam 10 Mg Tablet) 5 mg PO DAILY [facility] Last Admin: 05/17/23 08:29 Dose: 5 mg Dicyclomine HCl (Dicyclomine Hcl 10 Mg Capsule) 20 mg PO BID PRN PRN Reason: Abdominal Pain Gabapentin (Gabapentin 300 Mg Capsule) 300 mg PO BID [facility] Last Admin: 05/17/23 08:29 Dose: 300 mg Haloperidol (Haloperidol 5 Mg Tablet) 5 mg PO BEDTIME [facility] Last Admin: 05/16/23 22:26 Dose: 5 mg Hydroxyzine HCl (Hydroxyzine Hcl 25 Mg Tablet) 25 mg PO Q6H PRN PRN Reason: Anxiety Magnesium Hydroxide (Milk Of Magnesia 30 Ml Oral.Susp) 30 ml PO DAILY PRN PRN Reason: Constipation Magnesium Oxide (Magnesium Oxide 400 Mg Tablet) 400 mg PO DAILY [facility] Last Admin: 05/17/23 08:29 Dose: 400 mg Non-Formulary Medication (Cenobamate [Xcopri]) 150 mg PO DAILY [facility]; Protocol Last Admin: 05/17/23 08:27 Dose: 150 mg Non-Formulary Medication (Eslicarbazepine (Aptiom)) 600 mg PO DAILY [facility] Last Admin: 05/17/23 08:29 Dose: 600 mg Non-Formulary Medication (Eslicarbazepine (Aptiom) ) 900 mg PO BEDTIME [facility] Last Admin: 05/16/23 22:25 Dose: 900 mg Phenobarbital (Phenobarbital 100 Mg Tablet) 100 mg PO BEDTIME [facility] Last Admin: 05/16/23 22:25 Dose: 100 mg Trazodone HCl (Trazodone Hcl 50 Mg Tablet) 50 mg PO BEDTIME MRX1 PRN PRN Reason: Insomnia Allergies Allergies Allergy/AdvReac Type Severity Reaction Status Date / Time Iodinated Contrast Media Allergy Intermediate RED ALL Verified 04/30/23 15:45 [IV Dye, Iodine Containing] OVER NAUSEA AND LOST RESPIRATIONS Penicillins [PENICILLINS] Allergy Intermediate Unknown Verified 04/30/23 15:45 phenytoin [From Dilantin] Allergy Intermediate gum Verified 04/30/23 15:45 swelling lamotrigine [From Lamictal] Allergy Unknown unknown Verified 04/30/23 15:45 Assessment & Plan Assessment & Plan (1) Seizure: Status: Acute Code(s): R56.9 - Unspecified convulsions (2) Epilepsy: Status: Acute Code(s): G40.909 - Epilepsy, unspecified, not intractable, without status epilepticus Assessment and Plan: Recalcitrant epilepsy ( See my history) Recom. IV Phenobarbital 300mg over 1 hr an drestart Phenobarb 100mg hs. Check level tomorrow after 24 hrs. Continue Aptiom 600mg in am an d900mg in pm. Xcopri 150mgand clobazam 5mg in am and 20mg hs Plan seizure and fall rapid response call since patient had a sudden fall at M5, was found on the floor , face up bleeding from back of head. blood sugar greater than 100, blood pressure stable, EKG showed no arrhythmia, sinus tach with no ischemia. during examination patient noted to have a seizure with tonic-clonic activity upper extremity lasted less than couple minutes noted to have a new laceration back of head, close to a previous laceration sutured in the ED. patient is receiving all home medications phenobarb 60 mg at bedtime, gabapentin 300 b.i.d. and clobazam 20 mg at bedtime patient treated with 2 mg of Ativan, will increase dose of phenobarb 100 mg, follow levels at 48 hours called ED to suture the laceration will obtain CT head due to head injury. reviewed old records that showed that patient has history of depression, psychosis,with history of longstanding refractive epilepsy and encephalomalacia and history of aphasia,?has frequent falls secondary to refractory seizures in spite of multiple AEDs, VNS stimulator and two surgical procedures for Sz control at [facility]. She gets seizures daily, phenobarb level less than 2 on 05/11, patient received 100 mg of IV phenobarb in the emergency room repeat phenobarb level today is 6.7. case discussed with Dr. Barnes who informed the patient has Recalcitrant epilepsy, and will continue to have seizure frequently every week and she has failed all meds and combinations, mainstay of treatment is injury protection. 05/15/23 Increase Aptiom to 600 mg a.m. 900 mg hs per recommendation of Dr. Ward of [facility] [place]. Dr. Barnes is in agreement as is pt. Haldol level 05/16/23 Increased Phenobarbital as noted by neurology to 100 mg Onfi 5 mg a.m. to begin 05/17 Continue to monitor for symptoms 05/17/23 Verbal aggression/agitation seen today. CBCD, Phenobarbital Level on 05/18. Consultation initiated regarding what level of care will be most helpful for pt at this time. Followed by Hospitalist and Neurology today. Pt was seizure free 8/23. Seizure reported this a.m. As pt can have psychotic sx/agitation post ictal, it is difficult to differentiate sx etiology to treat with psychotropics. [facility] history helpful. Haldol 5 mg bid prn psychotic agitation- (by hx pt has taken 15 mg daily, currently on 5 mg standing). Ativan 1 mg q12h prn psychotic agitation Informed Consent: does not understand Reason for continued inpatient stay Substantial Risk for: med/psych decompensation Time Spent With Patient Time: Total time managing care of this patient today ____ minutes.
--- NOTE | 2023-05-17 16:35 | PC.NURSE ---
PT come to the nurse's station with 1:1. PT is reporting back pain related to the mattresses here 07/03. Offered Acetaminophen, pt refused and stated that she wants an injection. When asked what she wants an injection of, pt states I don't know . CAW made aware.
[2023-05-17] MEDS: cloBAZam 10 MG TABLET 20 MG PO (21:34)
--- NOTE | 2023-05-17 21:44 | PC.NURSE ---
PT refused Haldol and Gabapentin
[2023-05-18] MEDS: Acetaminophen 325 MG TABLET 650 MG PO (01:09)
[2023-05-18 08:30] VITALS: BP 142/76; PULSE 94; RESP 18; TEMP 36.4; O2SAT 100
[2023-05-18] MEDS: Gabapentin 300 MG CAPSULE PO ×2 (08:50→21:55)
[2023-05-18] MEDS: Magnesium Oxide 400 MG TABLET PO (08:50)
[2023-05-18] MEDS: cloBAZam 10 MG TABLET 5 MG PO (08:50)
--- NOTE | 2023-05-18 09:03 | PC.NURSE ---
Pt given wheelchair to use while in hallways, to minimize fall risk d/t seizure. Pt refusing to use wheelchair stating she does not need one. T/w advised pt of the risks of falling again and strongly suggested wheelchair use. To which pt replied well, if it happens it will happen .
--- NOTE | 2023-05-18 10:38 | HO.PSYCHPN ---
Subjective Subjective Date of Service: 05/18/23 Reason For Visit: psychosis Subjective Notes: Conditional Voluntary Healthcare Proxy: No Guardianship: No Medical Problems Affecting Mental Status: No Interim History: Fall early this a.m. Fell back, hitting her head. No LOC, pt able to get up with no obvious injury, CAT Scan ordered. Pt non compliant with some medications-05/17 Gabapentin and Haldol. Pt given seizure helmet which she refused. She refused to use wheelchair to keep her safe from falls. Seen and consulted by Dr. Gallegos. Irritable at times-delusional, confrontive to team, states she is here for back problems. Believes she should not have been admitted psychiatrically. Medication Compliance: Intermittent Side effects from medications: No Attending Groups: No Review of Systems Acute medical concerns: No Medical Review of Systems: unchanged Review of Systems Constitutional: Reports frequent falls Reports Neuro-related abnormal movements, Reports behavioral changes, Reports confusion, Reports frequent falls, Reports lack of coordination, Reports memory loss, Reports convulsions and Reports seizure-like activity Psychiatric: Reports behavioral changes, Reports confusion, Reports irritability, Reports memory loss, Reports mood swings and Reports paranoia Mental Status Exam Mental Status Exam Patient Appearance: Fatigued Patient Orientation: Person, Place and Situation Level of Consciousness: Alert Patient Behavior: Guarded, Talkative, Suspicious, Aggressive (verbally), Anxious, Distractible, Confused and Good Eye Contact Mood Description: Withdrawn, Hostile and Labile Affect Description: Labile Patient Cognition Impaired: Yes Ability to Follow Directions: Fair Speech Pattern: Perseverating, Spontaneous Speech and Soft-Spoken Memory Description: Remote Impaired and Episodic Impaired Delusions: Present Perceptual Disturbances: Derealization Thought Process: Illogical and Confusion Thought Content: positive for [place] and positive for Perseveration Depressive Symptoms: Increased Irritability Abnormal Motor Activity Signs and Symptoms: Aggression (verbal) and Agitation Judgement: Poor Diagnostics Vital Signs (24Hr): Vital Signs - 24 hr 05/18/23 08:30 Temperature 97.5 F Pulse Rate 94 Respiratory Rate 18 Blood Pressure 142/76 H Pulse Oximetry 100 Oxygen Delivery Method Room Air BMI result Body Mass Index 27.0 Labs 05/11/23 07:51 05/11/23 07:51 Labs: Laboratory Results - last 48 hr 05/18/23 08:21 Phenobarbital 12.6 Imaging Radiology Impressions: ITS Impressions Ribs X-Ray 05/10/23 14:35 IMPRESSION: Right ninth rib fractures involving both the posterior and lateral aspect. No pneumothorax. Head CT 05/11/23 08:14 IMPRESSION: No acute intracranial pathology. Cervical Spine CT 05/11/23 18:34 IMPRESSION: 1. No acute intracranial abnormality. 2. Straightening of the expected cervical spine curvature. 3. No fracture. Head CT 05/11/23 18:34 IMPRESSION: 1. No acute intracranial abnormality. 2. Straightening of the expected cervical spine curvature. 3. No fracture. Head CT 05/15/23 14:03 IMPRESSION: 1. No acute intracranial pathology. Chronic changes as detailed above without significant change. 2. Small right superior parietal and left superior subgaleal hematomas with overlying skin clips. Correlate with physical exam. Head CT 05/17/23 09:13 IMPRESSION: 1. There are no acute bleeds or territorial infarcts. No masses are demonstrated. 2. The study redemonstrates the sequelae of the high right greater than left scalp hematomas/lacerations. 3. There are no acute osseous findings; there are sequelae of a left high parietal craniotomy. 4. The study redemonstrates encephalomalacia and gliosis in the left parieto-occipital region, unchanged. Medications Medications Current Medications Acetaminophen (Acetaminophen 325 Mg Tablet) 650 mg PO Q6H PRN PRN Reason: Headache/Pain Mild Scale (1-3) Last Admin: 05/18/23 01:09 Dose: 650 mg Al Hydroxide/Mg Hydroxide (Magnesium Hydrox/Alum Hydrox 30 Ml Oral.Susp) 30 ml PO Q6H PRN PRN Reason: Heartburn/Nausea Clobazam (Clobazam 10 Mg Tablet) 20 mg PO BEDTIME [facility] Last Admin: 05/17/23 21:34 Dose: 20 mg Clobazam (Clobazam 10 Mg Tablet) 5 mg PO DAILY [facility] Last Admin: 05/18/23 08:50 Dose: 5 mg Dicyclomine HCl (Dicyclomine Hcl 10 Mg Capsule) 20 mg PO BID PRN PRN Reason: Abdominal Pain Gabapentin (Gabapentin 300 Mg Capsule) 300 mg PO BID [facility] Last Admin: 05/18/23 08:50 Dose: 300 mg Haloperidol (Haloperidol 5 Mg Tablet) 5 mg PO BEDTIME [facility] Last Admin: 05/17/23 21:44 Dose: Not Given Haloperidol (Haloperidol 5 Mg Tablet) 5 mg PO BID PRN PRN Reason: psychotic agitation Hydroxyzine HCl (Hydroxyzine Hcl 25 Mg Tablet) 25 mg PO Q6H PRN PRN Reason: Anxiety Lorazepam (Lorazepam 1 Mg Tablet) 1 mg PO BID PRN PRN Reason: agitation Magnesium Hydroxide (Milk Of Magnesia 30 Ml Oral.Susp) 30 ml PO DAILY PRN PRN Reason: Constipation Magnesium Oxide (Magnesium Oxide 400 Mg Tablet) 400 mg PO DAILY [facility] Last Admin: 05/18/23 08:50 Dose: 400 mg Non-Formulary Medication (Cenobamate [Xcopri]) 150 mg PO DAILY [facility]; Protocol Last Admin: 05/18/23 08:47 Dose: 150 mg Non-Formulary Medication (Eslicarbazepine (Aptiom)) 600 mg PO DAILY [facility] Last Admin: 05/18/23 08:51 Dose: 600 mg Non-Formulary Medication (Eslicarbazepine (Aptiom) ) 900 mg PO BEDTIME [facility] Last Admin: 05/17/23 21:40 Dose: 900 mg Phenobarbital (Phenobarbital 100 Mg Tablet) 100 mg PO BEDTIME [facility] Last Admin: 05/17/23 21:35 Dose: 100 mg Trazodone HCl (Trazodone Hcl 50 Mg Tablet) 50 mg PO BEDTIME MRX1 PRN PRN Reason: Insomnia Allergies Allergies Allergy/AdvReac Type Severity Reaction Status Date / Time Iodinated Contrast Media Allergy Intermediate RED ALL Verified 04/30/23 15:45 [IV Dye, Iodine Containing] OVER NAUSEA AND LOST RESPIRATIONS Penicillins [PENICILLINS] Allergy Intermediate Unknown Verified 04/30/23 15:45 phenytoin [From Dilantin] Allergy Intermediate gum Verified 04/30/23 15:45 swelling lamotrigine [From Lamictal] Allergy Unknown unknown Verified 04/30/23 15:45 Assessment & Plan Assessment & Plan (1) Seizure: Status: Acute Code(s): R56.9 - Unspecified convulsions (2) Delusional disorder: Status: Acute Code(s): F22 - Delusional disorders (3) Epilepsy: Status: Acute Code(s): G40.909 - Epilepsy, unspecified, not intractable, without status epilepticus Plan Asessment: 57 yo ukrainian speaking woman with history of Major depression and delusional disorder in context of medical issues including epilepsy and 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 Pt had fall in ED and has suture on herhead; CT scan of head and sine done. Plan: admit to m5 5 min checks manage fall risk assess sutures/jakub Q shift resume home meds collateral from providers and family discharge planning 05/18 Continue one to one Encourage compliance with safety mechanisms Labs 05/[address] Gallegos of hospitalist team-injury prevention is the main goal at this time. ? possibility of transfer to [facility] if family agrees when they return 05/21/23. Informed Consent: does not understand Reason for continued inpatient stay Substantial Risk for: med/psych decompensation Time Spent With Patient Time: Total time managing care of this patient today ____ minutes.
--- NOTE | 2023-05-18 11:13 | PC.NURSE ---
Helmet has arrived. Placed on pt. Pt asked to take it off. Advised the importance of wearing helmet. At current time pt continues to wear helmet.
--- NOTE | 2023-05-18 11:32 | PC.NURSE ---
Pt has removed helmet. Refusing to wear it despite encouragement from RN and other staff.
--- NOTE | 2023-05-18 14:52 | PM.EVENT ---
Event Note Date of Service: 05/18/23 Event Note: Called for falling down and possible seizure. As per staff patient was walking -had possible seizure and fall Patient seen and examined Seen and examined-patient denies any new complaints-no headache or blurry vision or dizziness or any new weakness or numbness Otherwise physical exam unchanged from 05/15/23 , no new area of swelling on the scalp or any active bleeding outside labS: Phenobarb level 12.6 CT head was ordered by psych Assessment plan: unchanged from 05/15/23 CT head needs to be followed Please continue the home medications phenobarb 100mg at bedtime, gabapentin and clobazam case if known to enurology-patient has Recalcitrant epilepsy, and will continue to have seizure frequently every week and she has failed all meds and combinations, mainstay of treatment is injury protection, patient supposed to get helmet also likely today ( ordered by primary team). please rediscuss case with neuro after ct scan results . d/w psych in detail. Time Spent With Patient Time: Total time managing care of this patient today ____ minutes.
[2023-05-18] MEDS: cloBAZam 10 MG TABLET 20 MG PO (21:53)
[2023-05-19] MEDS: cloBAZam 10 MG TABLET 5 MG PO (09:02)
[2023-05-19] MEDS: Magnesium Oxide 400 MG TABLET PO (09:02)
[2023-05-19] MEDS: Gabapentin 300 MG CAPSULE PO (09:02)
[2023-05-19 14:00] VITALS: BP 106/61; PULSE 106; RESP 16; TEMP 36.3; O2SAT 96
--- NOTE | 2023-05-19 16:45 | HO.PSYCHPN ---
Subjective Subjective Date of Service: 05/19/23 Reason For Visit: psychosis Interim History: met with patient. Discussed with Nursing. Chart reviewed. Noted one-to-one observation and significant seizure history. Still declining wheelchair and helmet. Has been taking medications but declining Haldol at times. In room sleeping. On wakening reported she did not want to speak with sign writer hand today but would tomorrow. Medication Compliance: Intermittent Side effects from medications: No Attending Groups: No Review of Systems Review of Systems Significant seizures on one-to-one observation Mental Status Exam Mental Status Exam Narrative: in bed. Disheveled. Alert on waking. Did not want to engage Diagnostics Vital Signs (24Hr): Vital Signs - 24 hr 05/19/23 14:00 Temperature 97.4 F Pulse Rate 106 H Respiratory Rate 16 Blood Pressure 106/61 Pulse Oximetry 96 Oxygen Delivery Method Room Air BMI result Body Mass Index 27.0 Labs 05/11/23 07:51 05/11/23 07:51 Labs: Laboratory Results - last 48 hr 05/18/23 05/18/23 08:21 08:21 WBC Cancelled RBC Cancelled Hgb Cancelled Hct Cancelled MCV Cancelled MCH Cancelled MCHC Cancelled RDW Cancelled Plt Count Cancelled MPV Cancelled Immature Gran % (Auto) Cancelled Neut % (Auto) Cancelled Lymph % (Auto) Cancelled Jennings % (Auto) Cancelled Eos % (Auto) Cancelled Baso % (Auto) Cancelled Lymph # (Auto) Cancelled Jennings # (Auto) Cancelled Eos # (Auto) Cancelled Baso # (Auto) Cancelled Abs Immat Gran (auto) Cancelled Absolute Neuts (auto) Cancelled Absolute Nucleated RBC Cancelled Nucleated RBC % (auto) Cancelled Phenobarbital 12.6 Imaging Radiology Impressions: ITS Impressions Ribs X-Ray 05/10/23 14:35 IMPRESSION: Right ninth rib fractures involving both the posterior and lateral aspect. No pneumothorax. Head CT 05/11/23 08:14 IMPRESSION: No acute intracranial pathology. Cervical Spine CT 05/11/23 18:34 IMPRESSION: 1. No acute intracranial abnormality. 2. Straightening of the expected cervical spine curvature. 3. No fracture. Head CT 05/11/23 18:34 IMPRESSION: 1. No acute intracranial abnormality. 2. Straightening of the expected cervical spine curvature. 3. No fracture. Head CT 05/15/23 14:03 IMPRESSION: 1. No acute intracranial pathology. Chronic changes as detailed above without significant change. 2. Small right superior parietal and left superior subgaleal hematomas with overlying skin clips. Correlate with physical exam. Head CT 05/17/23 09:13 IMPRESSION: 1. There are no acute bleeds or territorial infarcts. No masses are demonstrated. 2. The study redemonstrates the sequelae of the high right greater than left scalp hematomas/lacerations. 3. There are no acute osseous findings; there are sequelae of a left high parietal craniotomy. 4. The study redemonstrates encephalomalacia and gliosis in the left parieto-occipital region, unchanged. Head CT 05/18/23 11:18 IMPRESSION: Stable chronic changes of a left craniotomy and a small focus of gliosis and encephalomalacia involving the left parietal lobe. No acute intracranial hemorrhage. Medications Medications Current Medications Acetaminophen (Acetaminophen 325 Mg Tablet) 650 mg PO Q6H PRN PRN Reason: Headache/Pain Mild Scale (1-3) Last Admin: 05/18/23 01:09 Dose: 650 mg Al Hydroxide/Mg Hydroxide (Magnesium Hydrox/Alum Hydrox 30 Ml Oral.Susp) 30 ml PO Q6H PRN PRN Reason: Heartburn/Nausea Clobazam (Clobazam 10 Mg Tablet) 20 mg PO BEDTIME [facility] Last Admin: 05/18/23 21:53 Dose: 20 mg Clobazam (Clobazam 10 Mg Tablet) 5 mg PO DAILY [facility] Last Admin: 05/19/23 09:02 Dose: 5 mg Dicyclomine HCl (Dicyclomine Hcl 10 Mg Capsule) 20 mg PO BID PRN PRN Reason: Abdominal Pain Gabapentin (Gabapentin 300 Mg Capsule) 300 mg PO BID [facility] Last Admin: 05/19/23 09:02 Dose: 300 mg Haloperidol (Haloperidol 5 Mg Tablet) 5 mg PO BEDTIME [facility] Last Admin: 05/18/23 22:14 Dose: Not Given Haloperidol (Haloperidol 5 Mg Tablet) 5 mg PO BID PRN PRN Reason: psychotic agitation Hydroxyzine HCl (Hydroxyzine Hcl 25 Mg Tablet) 25 mg PO Q6H PRN PRN Reason: Anxiety Lorazepam (Lorazepam 1 Mg Tablet) 1 mg PO BID PRN PRN Reason: agitation Magnesium Hydroxide (Milk Of Magnesia 30 Ml Oral.Susp) 30 ml PO DAILY PRN PRN Reason: Constipation Magnesium Oxide (Magnesium Oxide 400 Mg Tablet) 400 mg PO DAILY [facility] Last Admin: 05/19/23 09:02 Dose: 400 mg Non-Formulary Medication (Cenobamate [Xcopri]) 150 mg PO DAILY [facility]; Protocol Last Admin: 05/19/23 09:00 Dose: 150 mg Non-Formulary Medication (Eslicarbazepine (Aptiom)) 600 mg PO DAILY [facility] Last Admin: 05/19/23 09:07 Dose: 600 mg Non-Formulary Medication (Eslicarbazepine (Aptiom) ) 900 mg PO BEDTIME [facility] Last Admin: 05/18/23 21:53 Dose: 900 mg Phenobarbital (Phenobarbital 100 Mg Tablet) 100 mg PO BEDTIME [facility] Last Admin: 05/18/23 21:53 Dose: 100 mg Trazodone HCl (Trazodone Hcl 50 Mg Tablet) 50 mg PO BEDTIME MRX1 PRN PRN Reason: Insomnia Allergies Allergies Allergy/AdvReac Type Severity Reaction Status Date / Time Iodinated Contrast Media Allergy Intermediate RED ALL Verified 04/30/23 15:45 [IV Dye, Iodine Containing] OVER NAUSEA AND LOST RESPIRATIONS Penicillins [PENICILLINS] Allergy Intermediate Unknown Verified 04/30/23 15:45 phenytoin [From Dilantin] Allergy Intermediate gum Verified 04/30/23 15:45 swelling lamotrigine [From Lamictal] Allergy Unknown unknown Verified 04/30/23 15:45 Assessment & Plan Assessment & Plan (1) Seizure: Status: Acute Code(s): R56.9 - Unspecified convulsions (2) Delusional disorder: Status: Acute Code(s): F22 - Delusional disorders (3) Epilepsy: Status: Acute Code(s): G40.909 - Epilepsy, unspecified, not intractable, without status epilepticus Plan Asessment: 57 yo filipino speaking woman with history of Major depression and delusional disorder in context of medical issues including epilepsy and 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 Pt had fall in ED and has suture on herhead; CT scan of head and sine done. Plan: admit to m5 5 min checks manage fall risk assess sutures/jakub Q shift resume home meds collateral from providers and family discharge planning 05/18 Continue one to one Encourage compliance with safety mechanisms Labs 05/[address] Gallegos of hospitalist team-injury prevention is the main goal at this time. ? possibility of transfer to [facility] if family agrees when they return 05/21/23. 05/19/2023: No changes and noted complexity of patient's presentation and treatment plan considerations Reason for continued inpatient stay Substantial Risk for: inability to function and rapid decompensation Time Spent With Patient Time: Total time managing care of this patient today ____ minutes.
--- NOTE | 2023-05-19 22:43 | PM.EVENT ---
Event Note Date of Service: 05/19/23 Event Note: Patient had another tonic-clonic seizure, witnessed, patient fell and hit her head, is now bleeding slightly from the scalp. Will order head CT, staff feel a little have the capacity take care of the patient, patient refuses to stay in bed, at this time will transfer to medical floor Time Spent With Patient Time: Total time managing care of this patient today ____ minutes.
--- NOTE | 2023-05-19 22:58 | PC.NURSE ---
Patient sitter notified this RN that at approximately 2230, patient had witnessed fall in bathroom. Vital signs T:96.9 HR: 86 BP: 151/74 O2: 96% RR:18 . Assisted patient back to bed. Patient non compliant with staying in bed. Stood back up from bed and fell backwards once more, less than five minutes after initial fall. It Compliance Analyst called to bedside. Patient noted to be bleeding from head. Upon assessment, old sutures bleeding and new open area. Provider executive consultant notified and hospitalist notified. Patient to go for CT scan and eval of open area.
--- NOTE | 2023-05-24 11:40 | P.DS_ITS ---
DS: Providers Provider Date of Service: 05/19/23 Date of admission: 05/12/23 16:43 Date of discharge: 05/19/23 Primary care physician: Unknown Physician Admitting clinician: Nellie Mcdonald Attending physician on admission: Kris West Consults: 05/14/23 15:36 Consult to Neurology Routine Consulting Provider: [facility] Reason for consultation: Pt of Dr. Barnes-seizures,psychosis, med non compliance 05/15/23 11:00 Consult to Neurology Routine Consulting Provider: [facility] Reason for consultation: seizure, breakthrough Attending physician on discharge: Kris West Discharging clinician: Nellie Mcdonald DS: Diagnosis Discharge Diagnosis (1) Seizure: Status: Acute (2) Delusional disorder: Status: Acute (3) Epilepsy: Status: Acute DS: Medications Discharge Medications Home Medications: Home Medications Medication Instructions Recorded Confirmed cenobamate 150 mg tablet (Xcopri) 150 mg PO DAILY 05/10/23 05/20/23 clobazam 20 mg tablet 20 mg PO BEDTIME 05/10/23 05/20/23 eslicarbazepine 600 mg tablet 600 mg PO DAILY 05/10/23 05/20/23 (Aptiom) gabapentin 300 mg capsule 300 mg PO BID 05/10/23 05/20/23 magnesium oxide 400 mg (241.3 mg 400 mg PO DAILY 05/10/23 05/20/23 magnesium) tablet clobazam 10 mg tablet 5 mg PO DAILY 05/11/23 05/20/23 diclofenac sodium 1 % topical gel 2 g topical QID PRN Pain 05/11/23 05/20/23 dicyclomine 10 mg capsule 20 mg PO BID PRN Abdominal Pain 05/11/23 05/20/23 haloperidol 5 mg tablet 5 mg PO BEDTIME 05/11/23 05/20/23 phenobarbital 60 mg tablet 100 mg PO BEDTIME 05/11/23 05/20/23 eslicarbazepine 600 mg tablet 900 mg PO BEDTIME 05/20/23 05/20/23 (Aptiom) haloperidol 5 mg tablet 5 mg PO BID PRN PSYCHOTIC AGITATION 05/20/23 05/20/23 hydroxyzine HCl 25 mg tablet 25 mg PO Q6H PRN Anxiety 05/20/23 05/20/23 Data Data Completed and Pending Completed studies during hospitalization [Text1]: 05/18/23 05/18/23 08:21 08:21 WBC Cancelled RBC Cancelled Hgb Cancelled Hct Cancelled MCV Cancelled MCH Cancelled MCHC Cancelled RDW Cancelled Plt Count Cancelled MPV Cancelled Immature Gran % (Auto) Cancelled Neut % (Auto) Cancelled Lymph % (Auto) Cancelled Hemphill % (Auto) Cancelled Eos % (Auto) Cancelled Baso % (Auto) Cancelled Lymph # (Auto) Cancelled Hemphill # (Auto) Cancelled Eos # (Auto) Cancelled Baso # (Auto) Cancelled Abs Immat Gran (auto) Cancelled Absolute Neuts (auto) Cancelled Absolute Nucleated RBC Cancelled Nucleated RBC % (auto) Cancelled Phenobarbital 12.6 Imaging Diagnostic Imaging Impressions Ribs X-Ray 05/10/23 14:35 IMPRESSION: Right ninth rib fractures involving both the posterior and lateral aspect. No pneumothorax. Head CT 05/11/23 08:14 IMPRESSION: No acute intracranial pathology. Cervical Spine CT 05/11/23 18:34 IMPRESSION: 1. No acute intracranial abnormality. 2. Straightening of the expected cervical spine curvature. 3. No fracture. Head CT 05/11/23 18:34 IMPRESSION: 1. No acute intracranial abnormality. 2. Straightening of the expected cervical spine curvature. 3. No fracture. Head CT 05/15/23 14:03 IMPRESSION: 1. No acute intracranial pathology. Chronic changes as detailed above without significant change. 2. Small right superior parietal and left superior subgaleal hematomas with overlying skin clips. Correlate with physical exam. Head CT 05/17/23 09:13 IMPRESSION: 1. There are no acute bleeds or territorial infarcts. No masses are demonstrated. 2. The study redemonstrates the sequelae of the high right greater than left scalp hematomas/lacerations. 3. There are no acute osseous findings; there are sequelae of a left high parietal craniotomy. 4. The study redemonstrates encephalomalacia and gliosis in the left parieto-occipital region, unchanged. Head CT 05/18/23 11:18 IMPRESSION: Stable chronic changes of a left craniotomy and a small focus of gliosis and encephalomalacia involving the left parietal lobe. No acute intracranial hemorrhage. DS: Summary Hospital Course Hospital Course: Pt transferred from adult psychiatry to medicine s/p seizure activity with injury. Status at Discharge Functional status at discharge: bed bound Overall status at discharge: patient is not back to baseline Time Spent with Patient Time attestation: Total time managing care of this patient today ____ minutes. Time spent: Greater than 30 minutes Discharge Plan Discharge Anticipated Discharge Date/Time: 05/19/23 23:06 Patient Disposition: Xfer Other Discharge Diagnosis: psychosis Referrals: [facility] and [facility] [Other] - 1 Week ([facility], now [facility] will continue with biweekly services that include [facility] service. ) [facility] Lisa [Other] - 1 Week Daniel Hernandez MD [Physician] - Physician,Savanna J [Primary Care Provider] - 1 Week Discharge Medications: No Action magnesium oxide 400 mg (241.3 mg magnesium) tablet 400 mg PO DAILY gabapentin 300 mg capsule 300 mg PO BID clobazam 20 mg tablet 20 mg PO BEDTIME Aptiom 600 mg tablet 600 mg PO DAILY Xcopri 150 mg tablet 150 mg PO DAILY haloperidol 5 mg tablet 5 mg PO BEDTIME dicyclomine 10 mg capsule 20 mg PO BID PRN (Reason: Abdominal Pain) phenobarbital 60 mg tablet 100 mg PO BEDTIME diclofenac sodium 1 % gel 2 g topical QID PRN (Reason: Pain) Rx Instructions: apply to affected area clobazam 10 mg Tablet 5 mg PO DAILY haloperidol 5 mg Tablet 5 mg PO BID PRN (Reason: PSYCHOTIC AGITATION) hydroxyzine HCl 25 mg Tablet 25 mg PO Q6H PRN (Reason: Anxiety) Aptiom 600 mg tablet 900 mg PO BEDTIME Discharge Orders: Discharge Order (Routine); Ordered 05/19/23 Ordered By: Burke Merritt Activity on Discharge: As tolerated Stand Alone Forms: Patient Portal Discharge page Care Plan Goals: Stabilization of seizures Health Concerns: Stabilization of Seizures Plan of Treatment: Transfer to medicine Assessment: Transfer to medicine Patient Instructions: Rib Fracture (ED), Epilepsy in Older Adults (ED) Discharge Date/Time: 05/19/23 23:01
== END 2023-05-19 23:01 | disposition other institution (70) | DRG 885 ==
LOC: HO.ED 05-12 11:27 → HO.PM5 05-12 16:49
PROVIDERS: Emergency Medicine; Nurse Practitioner Acute Care; Admitting Provider Clinical Nurse Specialist Psychiatric/Mental Health; Emergency Provider Emergency Medicine Emergency Medical Services; Visit Provider Clinical Nurse Specialist Psychiatric/Mental Health, Adult
DX: F22 Delusional disorders (principal); G92.8 Other toxic encephalopathy; F33.0 Major depressive disorder, recurrent, mild; G40.909 Epilepsy, unspecified, not intractable, without status epilepticus; E03.9 Hypothyroidism, unspecified; S01.01XA Laceration without foreign body of scalp, initial encounter; W19.XXXA Unspecified fall, initial encounter; Z91.041 Radiographic dye allergy status; Z20.822 Contact with and (suspected) exposure to COVID-19
CPT/HCPCS: 36415; 70450; 71101; 72125; 80048; 80053; 80061; 80184; 80307; 81001; 82306; 82550; 82607; 82746; 82947; 83036; 83690; 84443; 85025; 85610; 85730; 87635; 93005; 99285; J2060; J2560; S9485

== ENCOUNTER → 2023-05-12 16:43 | Outpatient (BNV) | payer MEDICARE, MEDICAID, SELFPAY | PROVIDERS: Admitting Provider Clinical Nurse Specialist Psychiatric/Mental Health; Emergency Provider Emergency Medicine Emergency Medical Services; Visit Provider Clinical Nurse Specialist Psychiatric/Mental Health, Adult | DX: F22 Delusional disorders (principal); G40.909 Epilepsy, unspecified, not intractable, without status epilepticus | CPT/HCPCS: 90792; 99231; 99232; 99239 ==

== ENCOUNTER → 2023-05-12 16:43 | Outpatient (BNV) | payer MEDICARE, MEDICAID, SELFPAY | PROVIDERS: Admitting Provider Clinical Nurse Specialist Psychiatric/Mental Health; Emergency Provider Emergency Medicine Emergency Medical Services; Visit Provider Psychiatry & Neurology Psychiatry | DX: F22 Delusional disorders (principal); G40.909 Epilepsy, unspecified, not intractable, without status epilepticus; R56.9 Unspecified convulsions | CPT/HCPCS: 90792 ==

== ENCOUNTER → 2023-05-12 16:43 | Outpatient (BNV) | payer MEDICARE, MEDICAID, SELFPAY | PROVIDERS: Admitting Provider Clinical Nurse Specialist Psychiatric/Mental Health; Emergency Provider Emergency Medicine Emergency Medical Services; Visit Provider Hospitalist | DX: G40.909 Epilepsy, unspecified, not intractable, without status epilepticus (principal); R55 Syncope and collapse; R29.6 Repeated falls | CPT/HCPCS: 99232; 99499 ==

== ENCOUNTER 2023-05-19 23:53 | Inpatient (IN) | payer MEDICARE, MEDICAID, SELFPAY ==
--- NOTE | ~2023-05-19 | CT_ITS ---
EXAMINATION: CT HEAD WITHOUT CONTRAST CLINICAL INFORMATION: Seizure. Fall. Hemorrhage. COMPARISON: CT head 05/18/2023, 05/17/2023. TECHNIQUE: Contiguous axial imaging was performed from the skull base to vertex without intravenous administration of contrast. This CT examination was performed using dose optimization techniques as appropriate, variously including the following: *Automated exposure control *Adjustment of mA and/or kV according to patient size (this includes techniques or standardized protocols for targeted exams where dose is matched to indication/reason for exam; i.e. extremities or head) *Use of iterative reconstruction technique DLP: 635 mGy-cm FINDINGS: Swelling of the right parietal scalp has slightly increased when compared to recent prior imaging of the head from 05/18/2023. There chronic changes of a left craniotomy. The calvarium is otherwise intact and there is no evidence of acute skull base fracture. Stable postoperative changes with cystic changes within the left parietal lobe and associated ex vacuo enlargement of the left atrium. Vasquez-white matter differentiation is otherwise preserved and there is no evidence of acute territorial infarct. No acute hemorrhage or abnormal extra-axial collection. No intracranial mass effect or hydrocephalus. There is no mastoid or middle ear effusion. No active paranasal sinus disease. CT/CT head/brain wo IV con IMPRESSION: Swelling of the right parietal scalp has slightly increased when compared to recent prior imaging of the head from 05/18/2023. Otherwise stable examination. No acute intracranial hemorrhage.
--- NOTE | 2023-05-20 00:01 | PM.IMHP ---
History of Present Illness Date of Service: 05/20/23 Chief Complaint: Seizure This is a 57-year-old female with past medical history of epilepsy, encephalomalacia, expressive aphasia, gait instability, hypothyroidism, delusional disorder, depression, is admitted to the medical floor after having multiple episodes of seizures and fall with head injury. After reviewing the EMR, it appears the patient was evaluated for recurrent seizures, Neurology saw patient on the and stated that patient has recalcitrant epilepsy and will continue to have seizures frequently every week as she has failed all medications and combinations. And main stay of treatment at this time is injury protection. Well at [facility] for management of depression and delusional disorder, patient had an episode of seizure disorder, she fell, hit her head, and is now bleeding from the scalp. U unit does not feel that the patient can be managed appropriately on their floor as patient has had more than 5 episodes of seizures and fall with head injury and they were unable to keep her in bed to avoid more injuries. Patient is alert, slightly postictal, an protective signal operator was used, she denies any chest pain, shortness of breath, no pelvic pain, no urinary symptoms. She hit the back of her head, slightly bleeding from the scalp. She has multiple stitches in place from previous falls. Vitals were conducted, negative Patient was sent for head CT and stitches to the ED but she refused both Review of Systems Review of Systems: Yes all other systems are reviewed and are negative [facility] Medical History Burn injury Class 1 obesity due to excess calories with body mass index (BMI) of 30.0 to 30.9 in adult Delusional disorder Depression Encephalomalacia Epilepsy Expressive aphasia Gait instability GERD (gastroesophageal reflux disease) Hypomagnesemia Hyponatremia Hypotension IBS (irritable bowel syndrome) Mild recurrent major depression Overactive bladder Polyarthralgia Pre-op evaluation Pre-op examination Screening for cervical cancer Seizures Unsteady gait Urge urinary incontinence Urinary incontinence Family History Father Heart problem Mother Diabetes Low blood pressure Family/Other Substance use disorder Mental health disorder Surgical History H/O prior ablation treatment History of section History of skin graft History of tubal ligation History of tumor Surgical history unknown Social History Household Members: Family Household Members Other:: with daughter Housing: Unknown / Unable to assess Do you presently have visiting nurse or other home services: No Unable to assess alcohol history related to: Unknown Alcohol intake: never Patient Tobacco Use Status: Never used Tobacco e-Cigarette/Vaping Use: Never Used Second Hand Smoke Exposure: No Use of substances other than those prescribed or required for medical reasons: Unknown Advance Directives: Yes Advance Directives on File: Yes Advance Directives Date on File: 01/09/23 Do you have thoughts of harming others: None Do you have a plan to hurt others: No Plan Recently lost weight without trying: Unsure Nutrition Risks: No Nutritional Risk Patient : No : No Poor oral hygiene: No service: No Current occupational status: disabled Current occupation: rt handed Sexual orientation: Straight/Heterosexual Gender identity: Female Cognitive needs: Yes (walker) Hearing needs: No Vision needs: Yes (glasses) Meds Allergies Allergy/AdvReac Type Severity Reaction Status Date / Time Iodinated Contrast Media Allergy Intermediate RED ALL Verified 04/30/23 15:45 [IV Dye, Iodine Containing] OVER NAUSEA AND LOST RESPIRATIONS Penicillins [PENICILLINS] Allergy Intermediate Unknown Verified 04/30/23 15:45 phenytoin [From Dilantin] Allergy Intermediate gum Verified 04/30/23 15:45 swelling lamotrigine [From Lamictal] Allergy Unknown unknown Verified 04/30/23 15:45 Active Medications: Current Medications Acetaminophen (Acetaminophen 325 Mg Tablet) 650 mg PO Q6H PRN PRN Reason: Pain, Mild (Pain Scale 1-3) Docusate Sodium (Docusate Sodium 100 Mg Capsule) 100 mg PO DAILY PRN PRN Reason: Constipation Enoxaparin Sodium (Enoxaparin Sodium 40 Mg/0.4 Ml Syringe) 40 mg SUBCUT Q24H [facility] Ondansetron HCl (Ondansetron Hcl 4 Mg/2 Ml Vial) 4 mg IVPUSH Q8H PRN PRN Reason: Nausea and Vomiting Sodium Chloride (0.9 % Sodium Chloride Flush 3 Ml Syringe) 3 ml IVFLUSH QSHIFT [facility] Home Medications Medication Instructions Recorded Confirmed Last Taken Type cenobamate 150 mg tablet (Xcopri) 150 mg PO DAILY 05/10/23 05/11/23 Unknown History clobazam 20 mg tablet 20 mg PO BEDTIME 05/10/23 05/11/23 Unknown History eslicarbazepine 600 mg tablet 600 mg PO BEDTIME 05/10/23 05/11/23 Unknown History (Aptiom) gabapentin 300 mg capsule 300 mg PO BID 05/10/23 05/11/23 Unknown History magnesium oxide 400 mg (241.3 mg 400 mg PO DAILY 05/10/23 05/11/23 Unknown History magnesium) tablet clobazam 10 mg tablet 5 mg PO DAILY 05/11/23 05/11/23 Unknown History diclofenac sodium 1 % topical gel 2 g topical QID PRN Pain 05/11/23 05/11/23 Unknown History dicyclomine 10 mg capsule 20 mg PO BID PRN Abdominal Pain 05/11/23 05/11/23 Unknown History haloperidol 5 mg tablet 5 mg PO BEDTIME 05/11/23 05/11/23 Unknown History phenobarbital 60 mg tablet 60 mg PO BEDTIME 05/11/23 05/11/23 Unknown History Physical Exam Const: Other: Alert, oriented to self and place General: cooperative and no acute distress HEENT: Other: Has multiple stitches on the back of her head, now bleeding from around the same area I am unable to find any new laceration Eyes: General: appearance normal, both eyes and all related structures Resp: Effort & Inspection: normal respiratory effort Auscultation: clear to auscultation bilaterally Cardio: Rate: regular rate Rhythm: regular rhythm GI: Palpation (GI): Soft to palpation Auscultation: normal bowel sounds Skin: General skin exam: no rashes or lesions noted Neuro: Cognition (Neuro): normal cognition Extrem: General: Yes normal to inspection and Yes no pedal edema Assessment and Plan (1) Recurrent seizures: Status: Acute (2) Laceration of head: Qualifiers: Encounter type: initial encounter Foreign body presence: without foreign body Location of open wound of head: scalp Qualified Code(s): S01.01XA - Laceration without foreign body of scalp, initial encounter Status: Inactive Plan 57-year-old female past medical history of hypothyroidism, delusional disorder, depression, epilepsy, is admitted to medical floor after having multiple seizures episodes in U # recurrent seizure - per neurology note patient has uncontrolled seizure not responding to multiple medications in combination - at this point protection of injury is the goal - at [facility] patient not stay in bed, and is difficult to for tacked her and she has had more than 5 episodes of seizures and head injury - will admit to medical floor, place a camera in patient's room, bed alarm, and allow her to get out of bed with assistance only - she will need long-term solution All other medications will be continued DVT prophylaxis: Lovenox Given patient's need for further protection from injury patient require minimum 2 nights inpatient hospital stay for further management and monitoring and to evaluate patient further for long-term solution Time Spent With Patient Time: Total time managing care of this patient today ____ minutes. Quality Stroke Does the patient have a stroke diagnosis?: No VTE Prior VTE?: No VTE Risk Level:: Medical - moderate - high VTE Device Contraindication: Treatment Not Indicated VTE Drug Contraindication: N/A - Med Ordered
--- NOTE | 2023-05-20 00:48 | PC.NURSE ---
Patient transferred via wheelchair approx 0015. report given to me from jl set up and charger on med/surg, who originally got report about this patient before patient arrived. Patient arrived without IV access and is refusing, she is suspicious of staff intentions for use of IV. Currently in bed, sitter at bedside, camera placed in room, and seizure precautions initiated.
--- NOTE | 2023-05-20 01:26 | PC.NURSE ---
Patient refused vital signs after transfer to unit. Does not always answer appropriately. Follows directions, clear speech.
[2023-05-20 04:30] VITALS: RESP 16
--- NOTE | 2023-05-20 04:43 | PC.NURSE ---
Patient continues to refuse care, vitals, IV insertion.
--- NOTE | 2023-05-20 07:27 | PHA.MEDREC ---
Pharmacy Consult ? Medication Reconciliation Pharmacy has completed the medication reconciliation. SPOKE TO DR SORIA, PT IS TRANSFER FROM PSYCH FLOOR. WILL COPY MEDS SHE WAS GETTING SINCE THERE WERE INCREASES IN CERTAIN MEDS TAMMIE
[2023-05-20 07:49] VITALS: BP 110/65; PULSE 89; RESP 18; TEMP 36.2; O2SAT 97
[2023-05-20 09:04] VITALS: BMI 27.5
[2023-05-20] MEDS: cloBAZam 10 MG TABLET 5 MG PO (09:39)
[2023-05-20] MEDS: Gabapentin 300 MG CAPSULE PO (09:40)
--- NOTE | 2023-05-20 10:21 | HO.PM.IMPN ---
Subjective Subjective Date of Service: 05/20/23 Interval History: seizures and fall? Review of Systems denies any c/o except mild head soarness no fevers Physical Exam Vital Signs: Vital Signs: Last Vital Signs Temp 97.2 F 05/20/23 07:49 Pulse 89 05/20/23 07:49 Resp 18 05/20/23 07:49 BP 110/65 05/20/23 07:49 Pulse Ox 97 05/20/23 07:49 O2 Del Method Room Air 05/20/23 07:49 BMI result Body Mass Index 27.5 physical exam: unchanged from last night, no new bleeding or fall or seizures. Objective Data Active Medications Acetaminophen (Acetaminophen 325 Mg Tablet) 650 mg PO Q6H PRN PRN Reason: Pain, Mild (Pain Scale 1-3) Clobazam (Clobazam 10 Mg Tablet) 5 mg PO DAILY [facility] Last Admin: 05/20/23 09:39 Dose: 5 mg Documented By: STACI Clobazam (Clobazam 10 Mg Tablet) 20 mg PO BEDTIME [facility] Dicyclomine HCl (Dicyclomine Hcl 10 Mg Capsule) 20 mg PO BID PRN PRN Reason: Abdominal Pain Docusate Sodium (Docusate Sodium 100 Mg Capsule) 100 mg PO DAILY PRN PRN Reason: Constipation Enoxaparin Sodium (Enoxaparin Sodium 40 Mg/0.4 Ml Syringe) 40 mg SUBCUT Q24H [facility] Last Admin: 05/20/23 09:44 Dose: Not Given Documented By: STACI Non-Admin Reason: Patient Refused Gabapentin (Gabapentin 300 Mg Capsule) 300 mg PO BID [facility] Last Admin: 05/20/23 09:40 Dose: 300 mg Documented By: STACI Haloperidol (Haloperidol 5 Mg Tablet) 5 mg PO BID PRN PRN Reason: PSYCHOTIC AGITATION Haloperidol (Haloperidol 5 Mg Tablet) 5 mg PO BEDTIME [facility] Hydroxyzine HCl (Hydroxyzine Hcl 25 Mg Tablet) 25 mg PO Q6H PRN PRN Reason: Anxiety Pt Own Medication ( Cenobamate [Xcopri] 150 Mg Tablet) 150 mg PO DAILY [facility] Last Admin: 05/20/23 10:11 Dose: Not Given Documented By: STACI Non-Admin Reason: Med Not Available Pt Own Medication ( Eslicarbazepine [ Aptiom] 600 Mg Tablet) 600 mg PO DAILY [facility] Last Admin: 05/20/23 10:10 Dose: 600 mg Documented By: STACI Pt Own Medication ( Eslicarbazepine [ Aptiom] 600 Mg Tablet) 900 mg PO BEDTIME [facility] Ondansetron HCl (Ondansetron Hcl 4 Mg/2 Ml Vial) 4 mg IVPUSH Q8H PRN PRN Reason: Nausea and Vomiting Phenobarbital (Phenobarbital 100 Mg Tablet) 100 mg PO BEDTIME [facility] Sodium Chloride (0.9 % Sodium Chloride Flush 3 Ml Syringe) 3 ml IVFLUSH QSHIFT [facility] Last Admin: 05/20/23 09:44 Dose: Not Given Documented By: STACI Non-Admin Reason: No Access Assessment and Plan (1) Recurrent seizures: Status: Acute Plan 57-year-old female past medical history of hypothyroidism, delusional disorder, depression, epilepsy, is admitted to medical floor after having multiple seizures episodes in U recurrent seizure ct head-Swelling of the right parietal scalp has slightly increased. per neurology note patient has uncontrolled seizure not responding to multiple medications in combination,at this point protection of injury is the goal at [facility] patient not stay in bed, and is difficult to for tacked her and she has had more than 5 episodes of seizures and head injury will admit to medical floor, place a camera in patient's room, bed alarm, and allow her to get out of bed with assistance only phenobarbitallevels :12.6 (05/18/23) continue her seizure meds ,need long-term solution-need psych/neuro eval -may need to go back to psych floor The refuses to wear helmet, please try use wheelchair if needed Discussed with nursing staff and the corncob pipe supervisor in detail-main focus is to provide injury protection. d/w psych -currently do not have enough staff for help,they will reeval situation in am. above management d/w nursing staff and corncob pipe supervisor in detail. DVT prophylaxis:? Lovenox inpatient need:further management and monitoring and to evaluate patient further for long-term solution Time Spent With Patient Time: Total time managing care of this patient today ____ minutes. Quality Stroke Does the patient have a stroke diagnosis?: No VTE Prior VTE?: No VTE Risk Level:: Medical - moderate - high VTE Device Contraindication: Treatment Not Indicated VTE Drug Contraindication: N/A - Med Ordered
--- NOTE | 2023-05-20 14:02 | PM.PSYCN ---
History of Present Illness Date of Service: 05/20/23 Chief Complaint: Recurrent Seizures and Falls Reason for Consult: Transfer from Requesting physician: Alma Gallegos Discussed with referring provider: Yes Sources of Information: patient interviewed and chart reviewed HPI Narrative: This is a 57-year-old female with past medical history of epilepsy, encephalomalacia, expressive aphasia, gait instability, hypothyroidism, delusional disorder, depression, Patient was admitted to the medical floor after having multiple episodes of seizures and fall with head injury last night 05/19/23. Patient was originally admitted for depression and psychosis 05/13/23.? Patient was evaluated for recurrent seizures, Neurology saw patient on the and stated that patient has recalcitrant epilepsy and will continue to have seizures frequently every week as she has failed all medications and combinations.? And main stay of treatment at this time is injury protection. Well at [facility] [place] for management of depression and delusional disorder, patient had an episode of seizure disorder, she fell, hit her head, and started bleeding from the scalp.? U unit didn't not feel that the patient can be managed appropriately on their floor as patient has had more than 5 episodes of seizures and fall with head injury and they were unable to keep her in bed to avoid more injuries. Psychiatry asked to see patient to determine management and disposition. Patient seen with [place] speaking staff. Patient was somewhat disorganized and guarded. She was paranoid about this examiner being a physician/psychiatrist. Patient knew she was on the medical floor due to her head trauma last night. She reeported she doesn't want to wear a helmet because it is for people who play sports and are at risk of injuring their head. When asked why she wouldn't use the wheelchair she answered because I can walk. Patient reported her mood as good and denied SI. She is on 1:1. Denies hallucinations. However appears paranoid. She had a head CT which didn't show new intracranial bleeding. Past Psychiatric History: -Pt has OP psych services at [facility], provider is Benji Valdivia. -Per daughter pt?s VH and paranoia started after her second brain surgery in 2018 for epilepsy. She has also had issues with word retrieval, aphasia. -Hx of multiple IPLOC, last at [facility] [place] [place] [facility] in 10/2021, [facility] 2018. and 2021 She has presented to crisis due to altered mental status, depression, and psychotic symptoms i.e. paranoia, delusions, disorganized thinking, A/VH, aggression, and confusion. 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 with vagal nerve stimulator implanted 2014 and in 2018 had surgery to remove scar tissues around it Medical Evaluation Reviewed: Yes [facility] Medical History Burn injury Class 1 obesity due to excess calories with body mass index (BMI) of 30.0 to 30.9 in adult Delusional disorder Depression Encephalomalacia Epilepsy Expressive aphasia Gait instability GERD (gastroesophageal reflux disease) Hypomagnesemia Hyponatremia Hypotension IBS (irritable bowel syndrome) Mild recurrent major depression Overactive bladder Polyarthralgia Pre-op evaluation Pre-op examination Screening for cervical cancer Seizures Unsteady gait Urge urinary incontinence Urinary incontinence Surgical History H/O prior ablation treatment History of section History of skin graft History of tubal ligation History of tumor Surgical history unknown Social History: -Her daughter, Hamida, is her healthcare proxy. -Supports include her two daughters, her SUGAR CANE GROWER (Nguyen, who is also her niece), and the father of her children Lives with daughter and the father of her children Trauma History: denies Diagnostics Vital Signs (24Hr): Vital Signs - 24 hr 05/20/23 04:30 05/20/23 07:49 Temperature 97.2 F Pulse Rate 89 Respiratory Rate 16 18 Blood Pressure 110/65 Pulse Oximetry 97 Oxygen Delivery Method Room Air BMI result Body Mass Index 27.5 Labs 05/20/23 16:18 Imaging Radiology Impressions: ITS Impressions Head CT 05/20/23 09:33 IMPRESSION: Swelling of the right parietal scalp has slightly increased when compared to recent prior imaging of the head from 05/18/2023. Otherwise stable examination. No acute intracranial hemorrhage. Mental Status Exam Mental Status Exam Patient Appearance: Appropriate Patient Orientation: Person, Place, Time and Situation Level of Consciousness: Awake, Restless and Alert Patient Behavior: Guarded, Cooperative, Suspicious, Good Eye Contact and Impulsive Mood Description: Euphoric and Cheerful Affect Description: Euphoric and Cheerful Patient Cognition Impaired: Yes Ability to Follow Directions: Poor Speech Pattern: Clear and Inappropriate Memory Description: Normal for Patient Hallucinations: None Delusions: Paranoid Ideation Thought Process: Goal Oriented and Evasive Thought Content: positive for [place] and positive for Circumstantial Abnormal Motor Activity Signs and Symptoms: Restlessness Judgement: Poor Medications Medications Current Medications Acetaminophen (Acetaminophen 325 Mg Tablet) 650 mg PO Q6H PRN PRN Reason: Pain, Mild (Pain Scale 1-3) Clobazam (Clobazam 10 Mg Tablet) 5 mg PO DAILY [facility] Last Admin: 05/20/23 09:39 Dose: 5 mg Clobazam (Clobazam 10 Mg Tablet) 20 mg PO BEDTIME [facility] Dicyclomine HCl (Dicyclomine Hcl 10 Mg Capsule) 20 mg PO BID PRN PRN Reason: Abdominal Pain Docusate Sodium (Docusate Sodium 100 Mg Capsule) 100 mg PO DAILY PRN PRN Reason: Constipation Enoxaparin Sodium (Enoxaparin Sodium 40 Mg/0.4 Ml Syringe) 40 mg SUBCUT Q24H [facility] Last Admin: 05/20/23 09:44 Dose: Not Given Gabapentin (Gabapentin 300 Mg Capsule) 300 mg PO BID [facility] Last Admin: 05/20/23 09:40 Dose: 300 mg Haloperidol (Haloperidol 5 Mg Tablet) 5 mg PO BID PRN PRN Reason: PSYCHOTIC AGITATION Haloperidol (Haloperidol 5 Mg Tablet) 5 mg PO BEDTIME [facility] Hydroxyzine HCl (Hydroxyzine Hcl 25 Mg Tablet) 25 mg PO Q6H PRN PRN Reason: Anxiety Pt Own Medication ( Cenobamate [Xcopri] 150 Mg Tablet) 150 mg PO DAILY [facility] Last Admin: 05/20/23 10:11 Dose: Not Given Pt Own Medication ( Eslicarbazepine [ Aptiom] 600 Mg Tablet) 600 mg PO DAILY [facility] Last Admin: 05/20/23 10:10 Dose: 600 mg Pt Own Medication ( Eslicarbazepine [ Aptiom] 600 Mg Tablet) 900 mg PO BEDTIME [facility] Ondansetron HCl (Ondansetron Hcl 4 Mg/2 Ml Vial) 4 mg IVPUSH Q8H PRN PRN Reason: Nausea and Vomiting Phenobarbital (Phenobarbital 100 Mg Tablet) 100 mg PO BEDTIME [facility] Sodium Chloride (0.9 % Sodium Chloride Flush 3 Ml Syringe) 3 ml IVFLUSH QSHIFT [facility] Last Admin: 05/20/23 09:44 Dose: Not Given Allergies Allergies Allergy/AdvReac Type Severity Reaction Status Date / Time Iodinated Contrast Media Allergy Intermediate RED ALL Verified 04/30/23 15:45 [IV Dye, Iodine Containing] OVER NAUSEA AND LOST RESPIRATIONS Penicillins [PENICILLINS] Allergy Intermediate Unknown Verified 04/30/23 15:45 phenytoin [From Dilantin] Allergy Intermediate gum Verified 04/30/23 15:45 swelling lamotrigine [From Lamictal] Allergy Unknown unknown Verified 04/30/23 15:45 Assessment & Plan Assessment & Plan (1) Psychosis: Status: Acute Code(s): F29 - Unspecified psychosis not due to a substance or known physiological condition (2) Recurrent seizures: Status: Acute Code(s): G40.909 - Epilepsy, unspecified, not intractable, without status epilepticus (3) Delusional disorder: Status: Acute Code(s): F22 - Delusional disorders Plan This is a 57-year-old female with past medical history of epilepsy, encephalomalacia, expressive aphasia, gait instability, hypothyroidism, delusional disorder, depression, Patient was admitted to the medical floor after having multiple episodes of seizures and fall with head injury last night 05/19/23. Patient was originally admitted for depression and psychosis 05/13/23.? Patient was evaluated for recurrent seizures, Neurology saw patient on the and stated that patient has recalcitrant epilepsy and will continue to have seizures frequently every week as she has failed all medications and combinations.? And main stay of treatment at this time is injury protection. - Please continue Haldol 5 mg HS and 5 mg BID PRN as it was on M5. - Continue 1:1 observation. - Fall prevention. - If patient were to return to , she will require 2:1 observation as she would have more liberty with moving as opposed to medical floor. Discussed with nursing on M5 and coordinator. - Ideally patient would be best care for in a med/psych or neuropsychiatric unit. - Patient to remain on medicine until a bed becomes available. Discussed with medicine. Total time managing care of this patient today ____ minutes.
--- NOTE | 2023-05-20 15:51 | PC.NURSE ---
Assessment done with assistance of coal hauler operator,patient alert ,calm at present ,answers most questions appropriately but changes subject frequently,sitter at bedside,seizure precautions in place
--- NOTE | 2023-05-20 15:53 | MHC.CM.PN ---
CM ATTEMPTED TO CONTACT PTS DAUGHTER/HCP, NANO [phone] CALL WENT TO VM MESSAGE LEFT WITH CONTACT INFORMATION AND MEDICARE RIGHTS PER PREVIOUS VISIT AIR BATTLE MANAGER, PT LIVES WITH HER OTHER DAUGHTER SHE IS ACTIVE WITH A VNA AND DAILY PCP SHE USES A WALKER M[facility] AND HC ON FILE PCP: BRITTANY DORSEY IMM DELIVERED DCP: HOME WITH RESUMPTION OF SERVICES VS STR
--- NOTE | 2023-05-20 15:55 | PC.NURSE ---
Patient has no IV access,refusing it,Dr. Gallegos notified,questioned need for prn meds in case of seizure
[2023-05-20 16:02] VITALS: BP 94/54; PULSE 87; TEMP 36.1; O2SAT 97
[2023-05-20 16:05] VITALS: BP 115/57; PULSE 87
--- NOTE | 2023-05-20 16:21 | PC.NURSE ---
with presence of CHARO Vera,pipe straightener Aminta patient agreed to have IV inserted,tolerated it well.
[2023-05-20 16:46] LABS: Anion Gap 13 (12-20); Blood Urea Nitrogen 16 mg/dL (9-16); Calcium 9.1 mg/dL (8.4-10.2); Carbon Dioxide 24 mmol/L (22-29); Chloride 103 mmol/L (96-108); Creatinine Clr Calc Pharmacy 117.1; Estimated Glomerular Filt Rate > 60; Glucose Random 95 mg/dL (60-115); Potassium 5.2 mmol/L (3.3-5.1); Sodium 135 mmol/L (135-145)
--- NOTE | 2023-05-20 21:02 | PC.NURSE ---
K level 5.2 ,Dr. Kellogg notified
--- NOTE | 2023-05-20 22:02 | PC.NURSE ---
patient removed IV from left AC ,sitter did not noticed,VMT staff did not notice,patient refuses to have new IV inserted,will notify next shift RN to attempt insertion at a later time
--- NOTE | 2023-05-20 22:07 | PC.NURSE ---
patient refused lab draw ,Dr. Kellogg notified
[2023-05-20 23:58] VITALS: BP 112/64; PULSE 80; RESP 16; O2SAT 97
[2023-05-21 07:40] VITALS: BP 107/64; PULSE 93; RESP 18; TEMP 36.1; O2SAT 96
[2023-05-21] MEDS: cloBAZam 10 MG TABLET 5 MG PO (07:47)
[2023-05-21] MEDS: Gabapentin 300 MG CAPSULE PO ×2 (07:48→22:11)
--- NOTE | 2023-05-21 09:48 | PC.NURSE ---
Took over assignment of Nanci at 3am today. Pt was awake, accusatory and would not allow me into her room. Around 430 as I was making my rounds I heard rustling in the room, pt had made it out of her bed to the bathroom, by herself. Sitter was asleep in the chair, and the bed alarm had been shut off. camera in room did not alert that patient had left her bed for around 90sec. I stood outside of the bathroom until patient came out. I asked if she was ok, pt became very upset and agitated that I had entered the room. I was notified by tele that patient had taken off her tele monitor at 528am. I attempted to go in and explained that I needed to reapply the monitor to her so that we could watch her heart rate. Pt was very combative, however, within a few minutes allowed me into the room as long as I had gloves and a mask on. While passing morning meds she refused her lovenox and her flush, would not allow me to assess her, or to view the laceration on her head. She did take her pills, although, it took about 20 minutes and she said that she would only take them if everyone, including her 1:1 left the room. I backed around the corner and watched from a distance. After a conversation with herself she took the pills, however, would not let me fully reenter the room. Pt is adversarial with her 1:1, and anyone who enters the room, regardless of what they are there for. Will continue to monitor.
--- NOTE | 2023-05-21 11:12 | P.PNIM_ITS ---
Subjective Subjective Date of Service: 05/21/23 Interval History: seizures and fall? Review of Systems denies any c/o except mild head soarness no fevers Physical Exam Vital Signs: Vital Signs: Last Vital Signs Temp 96.9 F 05/21/23 07:40 Pulse 93 05/21/23 07:40 Resp 18 05/21/23 07:40 BP 107/64 05/21/23 07:40 Pulse Ox 96 05/21/23 07:40 O2 Del Method Room Air 05/21/23 07:40 BMI result Body Mass Index 27.5 Appearance: awake,alert .? not in distress.? cvs: rrr, [id number]. res: clear to auscultation ,no rhonchii or wheezing abd: no rebound or guarding ,nt, bs present. skin: stiches on back of head, no new bleeding ext pulses present , no cyanosis . neuro:moves all ext. Objective Data Active Medications Acetaminophen (Acetaminophen 325 Mg Tablet) 650 mg PO Q6H PRN PRN Reason: Pain, Mild (Pain Scale 1-3) Clobazam (Clobazam 10 Mg Tablet) 5 mg PO DAILY [facility] Last Admin: 05/21/23 07:47 Dose: 5 mg Documented By: BIRGIT Clobazam (Clobazam 10 Mg Tablet) 20 mg PO BEDTIME [facility] Last Admin: 05/20/23 22:12 Dose: Not Given Documented By: MICHAEL Non-Admin Reason: Patient Refused Dicyclomine HCl (Dicyclomine Hcl 10 Mg Capsule) 20 mg PO BID PRN PRN Reason: Abdominal Pain Docusate Sodium (Docusate Sodium 100 Mg Capsule) 100 mg PO DAILY PRN PRN Reason: Constipation Enoxaparin Sodium (Enoxaparin Sodium 40 Mg/0.4 Ml Syringe) 40 mg SUBCUT Q24H [facility] Last Admin: 05/21/23 07:42 Dose: Not Given Documented By: BIRGIT Non-Admin Reason: Patient Refused Gabapentin (Gabapentin 300 Mg Capsule) 300 mg PO BID [facility] Last Admin: 05/21/23 07:48 Dose: 300 mg Documented By: BIRGIT Haloperidol (Haloperidol 5 Mg Tablet) 5 mg PO BID PRN PRN Reason: PSYCHOTIC AGITATION Haloperidol (Haloperidol 5 Mg Tablet) 5 mg PO BEDTIME [facility] Last Admin: 05/20/23 22:13 Dose: Not Given Documented By: MICHAEL Non-Admin Reason: Patient Refused Hydroxyzine HCl (Hydroxyzine Hcl 25 Mg Tablet) 25 mg PO Q6H PRN PRN Reason: Anxiety Pt Own Medication ( Cenobamate [Xcopri] 150 Mg Tablet) 150 mg PO DAILY [facility] Last Admin: 05/21/23 07:46 Dose: Not Given Documented By: BIRGIT Non-Admin Reason: Med Not Available Pt Own Medication ( Eslicarbazepine [ Aptiom] 600 Mg Tablet) 600 mg PO DAILY [facility] Last Admin: 05/21/23 07:48 Dose: 600 mg Documented By: BIRGIT Pt Own Medication ( Eslicarbazepine [ Aptiom] 600 Mg Tablet) 900 mg PO BEDTIME [facility] Last Admin: 05/20/23 22:12 Dose: Not Given Documented By: MICHAEL Non-Admin Reason: Patient Refused Ondansetron HCl (Ondansetron Hcl 4 Mg/2 Ml Vial) 4 mg IVPUSH Q8H PRN PRN Reason: Nausea and Vomiting Phenobarbital (Phenobarbital 100 Mg Tablet) 100 mg PO BEDTIME [facility] Last Admin: 05/20/23 22:13 Dose: Not Given Documented By: MICHAEL Non-Admin Reason: Patient Refused Sodium Chloride (0.9 % Sodium Chloride Flush 3 Ml Syringe) 3 ml IVFLUSH QSHIFT [facility] Last Admin: 05/21/23 07:41 Dose: Not Given Documented By: BIRGIT Non-Admin Reason: Patient Refused Labs 05/20/23 16:18 Labs: Laboratory Results - last 24 hr 05/20/23 16:18 Anion Gap 13 Estim Creat Clear Calc 117.1 Estimated GFR > 60 Random Glucose 95 Calcium 9.1 D Assessment and Plan (1) Recurrent seizures: Status: Acute Plan 57-year-old female past medical history of hypothyroidism, delusional disorder, depression, epilepsy, is admitted to medical floor after having multiple seizures episodes in [facility] ?recurrent seizure ct head-Swelling of the right parietal scalp has slightly increased. per neurology note patient has uncontrolled seizure not responding to multiple medications in combination,at this point protection of injury is the goal at [facility] patient not stay in bed, and is difficult to for tacked her and she has had more than 5 episodes of seizures and head injury will admit to medical floor, place a camera in patient's room, bed alarm, and allow her to get out of bed with assistance only phenobarbitallevels :12.6? (05/18/23) continue her seizure meds ,need long-term solution The refuses to wear helmet, please try use wheelchair if needed d/w neuro Dr Barnes-continue current care,main focus is to provide injury protection. psych follow up today-for dispo. above management d/w nursing staff and payroll supervisor in detail. DVT prophylaxis:? Lovenox inpatient need: dispo to psych,furthervpatient further for long-term solution- tomorrow meeting with patient family-for seizure/psych medication management discussion. Time Spent With Patient Time: Total time managing care of this patient today ____ minutes. Quality Stroke Does the patient have a stroke diagnosis?: No VTE Prior VTE?: No VTE Risk Level:: Medical - moderate - high VTE Device Contraindication: Treatment Not Indicated VTE Drug Contraindication: N/A - Med Ordered
--- NOTE | 2023-05-21 11:46 | PC.NURSE ---
Pt is sitting in bed, happy, as her daughter is at bedside and brought her a beverage that she enjoys. Pt allowed me to enter the room and to ask questions regarding her neuro checks and her pain assessment, however, would not engage with me directly beyond that. Meeting on pt's disposition scheduled. will continue to monitor Q2H
--- NOTE | 2023-05-21 12:00 | PM.NEUROCN ---
History of Present Illness Data of Consult Service Date: 05/21/23 Primary Care Provider: Unknown Physician HPI Reason for consult: Epilepsy 57 years old woman with chronic intractable epilepsy. I was asked to see her but she refused to be seen or examined. I reviewed her recent medical records and noted that she was seen but Neurology just recently. [facility] Past Medical History Medical History Burn injury Class 1 obesity due to excess calories with body mass index (BMI) of 30.0 to 30.9 in adult Delusional disorder Depression Encephalomalacia Epilepsy Expressive aphasia Gait instability GERD (gastroesophageal reflux disease) Hypomagnesemia Hyponatremia Hypotension IBS (irritable bowel syndrome) Mild recurrent major depression Overactive bladder Polyarthralgia Pre-op evaluation Pre-op examination Screening for cervical cancer Seizures Unsteady gait Urge urinary incontinence Urinary incontinence Family History Family History Father Heart problem Mother Diabetes Low blood pressure Family/Other Substance use disorder Mental health disorder Surgical History Surgical History H/O prior ablation treatment History of section History of skin graft History of tubal ligation History of tumor Surgical history unknown Social History Social History Household Members: Family Household Members Other:: with daughter Housing: Unknown / Unable to assess Do you presently have visiting nurse or other home services: No Unable to assess alcohol history related to: Unknown Alcohol intake: never Patient Tobacco Use Status: Never used Tobacco e-Cigarette/Vaping Use: Never Used Second Hand Smoke Exposure: No Use of substances other than those prescribed or required for medical reasons: Unknown Currently Displaying Signs/Symptoms of Drug Intoxication Withdrawal: No Advance Directives: Yes Advance Directives on File: Yes Advance Directives Date on File: 01/09/23 Do you have thoughts of harming others: None Do you have a plan to hurt others: No Plan Recently lost weight without trying: Unsure Nutrition Risks: No Nutritional Risk Patient : No : No Poor oral hygiene: No service: No Current occupational status: disabled Current occupation: rt handed Sexual orientation: Straight/Heterosexual Gender identity: Female Cognitive needs: Yes (walker) Hearing needs: No Vision needs: Yes (glasses) Meds Allergies Allergy/AdvReac Type Severity Reaction Status Date / Time Iodinated Contrast Media Allergy Intermediate RED ALL Verified 04/30/23 15:45 [IV Dye, Iodine Containing] OVER NAUSEA AND LOST RESPIRATIONS Penicillins [PENICILLINS] Allergy Intermediate Unknown Verified 04/30/23 15:45 phenytoin [From Dilantin] Allergy Intermediate gum Verified 04/30/23 15:45 swelling lamotrigine [From Lamictal] Allergy Unknown unknown Verified 04/30/23 15:45 Active Medications: Current Medications Acetaminophen (Acetaminophen 325 Mg Tablet) 650 mg PO Q6H PRN PRN Reason: Pain, Mild (Pain Scale 1-3) Clobazam (Clobazam 10 Mg Tablet) 5 mg PO DAILY [facility] Last Admin: 05/21/23 07:47 Dose: 5 mg Clobazam (Clobazam 10 Mg Tablet) 20 mg PO BEDTIME [facility] Last Admin: 05/20/23 22:12 Dose: Not Given Dicyclomine HCl (Dicyclomine Hcl 10 Mg Capsule) 20 mg PO BID PRN PRN Reason: Abdominal Pain Docusate Sodium (Docusate Sodium 100 Mg Capsule) 100 mg PO DAILY PRN PRN Reason: Constipation Enoxaparin Sodium (Enoxaparin Sodium 40 Mg/0.4 Ml Syringe) 40 mg SUBCUT Q24H [facility] Last Admin: 05/21/23 07:42 Dose: Not Given Gabapentin (Gabapentin 300 Mg Capsule) 300 mg PO BID [facility] Last Admin: 05/21/23 07:48 Dose: 300 mg Haloperidol (Haloperidol 5 Mg Tablet) 5 mg PO BID PRN PRN Reason: PSYCHOTIC AGITATION Haloperidol (Haloperidol 5 Mg Tablet) 5 mg PO BEDTIME [facility] Last Admin: 05/20/23 22:13 Dose: Not Given Hydroxyzine HCl (Hydroxyzine Hcl 25 Mg Tablet) 25 mg PO Q6H PRN PRN Reason: Anxiety Pt Own Medication ( Cenobamate [Xcopri] 150 Mg Tablet) 150 mg PO DAILY [facility] Last Admin: 05/21/23 07:46 Dose: Not Given Pt Own Medication ( Eslicarbazepine [ Aptiom] 600 Mg Tablet) 600 mg PO DAILY [facility] Last Admin: 05/21/23 07:48 Dose: 600 mg Pt Own Medication ( Eslicarbazepine [ Aptiom] 600 Mg Tablet) 900 mg PO BEDTIME [facility] Last Admin: 05/20/23 22:12 Dose: Not Given Ondansetron HCl (Ondansetron Hcl 4 Mg/2 Ml Vial) 4 mg IVPUSH Q8H PRN PRN Reason: Nausea and Vomiting Phenobarbital (Phenobarbital 100 Mg Tablet) 100 mg PO BEDTIME [facility] Last Admin: 05/20/23 22:13 Dose: Not Given Sodium Chloride (0.9 % Sodium Chloride Flush 3 Ml Syringe) 3 ml IVFLUSH QSHIFT [facility] Last Admin: 05/21/23 07:41 Dose: Not Given Home Medications Medication Instructions Recorded Confirmed Last Taken Type cenobamate 150 mg tablet (Xcopri) 150 mg PO DAILY 05/10/23 05/20/23 Unknown History clobazam 20 mg tablet 20 mg PO BEDTIME 05/10/23 05/20/23 Unknown History eslicarbazepine 600 mg tablet 600 mg PO DAILY 05/10/23 05/20/23 Unknown History (Aptiom) gabapentin 300 mg capsule 300 mg PO BID 05/10/23 05/20/23 Unknown History magnesium oxide 400 mg (241.3 mg 400 mg PO DAILY 05/10/23 05/20/23 Unknown History magnesium) tablet clobazam 10 mg tablet 5 mg PO DAILY 05/11/23 05/20/23 Unknown History diclofenac sodium 1 % topical gel 2 g topical QID PRN Pain 05/11/23 05/20/23 Unknown History dicyclomine 10 mg capsule 20 mg PO BID PRN Abdominal Pain 05/11/23 05/20/23 Unknown History haloperidol 5 mg tablet 5 mg PO BEDTIME 05/11/23 05/20/23 Unknown History phenobarbital 60 mg tablet 100 mg PO BEDTIME 05/11/23 05/20/23 Unknown History eslicarbazepine 600 mg tablet 900 mg PO BEDTIME 05/20/23 05/20/23 Unknown History (Aptiom) haloperidol 5 mg tablet 5 mg PO BID PRN PSYCHOTIC AGITATION 05/20/23 05/20/23 Unknown History hydroxyzine HCl 25 mg tablet 25 mg PO Q6H PRN Anxiety 05/20/23 05/20/23 Unknown History Physical Exam Vital Signs: Vital Signs: Last Vital Signs Temp 96.9 F 05/21/23 07:40 Pulse 93 05/21/23 07:40 Resp 18 05/21/23 07:40 BP 107/64 05/21/23 07:40 Pulse Ox 96 05/21/23 07:40 O2 Del Method Room Air 05/21/23 07:40 BMI result Body Mass Index 27.5 Results Labs 05/20/23 16:18 Labs: BMP 05/20/23 16:18 Sodium 135 Potassium 5.2 H D Chloride 103 Carbon Dioxide 24 BUN 16 Creatinine 0.57 Calcium 9.1 D Assessment and Plan (1) Recurrent seizures: Status: Acute 57 years old woman with chronic intractable epilepsy recently seen but Dr. Barnes. As far as this consultation was concerned, patient refused to be interviewed or seen. I am not sure if any further consultation is needed afterward Dr. Cameron barcenas stated in his last consultation. Please review his note an continue management accordingly. Time Spent With Patient Time: Total time managing care of this patient today ____ minutes. Procedures Date of Service Date of Service: 05/21/23
--- NOTE | 2023-05-21 13:14 | MHC.CM.PN ---
EMR REVIEWED AND PER MD ROUNDS, PT MAY NEED TO RETURN TO PSYCH UNIT. CM WILL CONTINUE TO FOLLOW FOR DC NEEDS/PLAN.
[2023-05-21 16:00] VITALS: BP 118/78; PULSE 105; RESP 20; TEMP 36.4; O2SAT 96
[2023-05-21 19:46] VITALS: BP 106/63; PULSE 97; RESP 20; TEMP 36.3; O2SAT 98
[2023-05-21] MEDS: cloBAZam 10 MG TABLET 20 MG PO (22:11)
[2023-05-21] MEDS: HaloperidoL 5 MG TABLET PO (22:11)
[2023-05-22] VITALS: BP 117/86; PULSE 87; RESP 16; TEMP 36; O2SAT 97
--- NOTE | 2023-05-22 07:25 | PM.DS ---
DS: Providers Provider Date of admission: 05/19/23 23:53 Primary care physician: Unknown Physician Consults: 05/20/23 07:03 Consult to Psychiatry Routine Consulting Provider: Psych Covering Reason for consultation: psych eval -for multiple psych issues -interferes with care . Has provider been notified: No 05/20/23 07:05 Consult to Neurology Routine Consulting Provider: [facility] Reason for consultation: multiple seizures Has provider been notified: No 05/20/23 07:28 Consult for Sitter Routine Reason for consultation: falls/psych dis Has provider been notified: No DS: Diagnosis Discharge Diagnosis (1) Recurrent seizures: Status: Acute DS: Summary Hospital Course Hospital Course: Chief Complaint: Seizure This is a 57-year-old female with past medical history of epilepsy, encephalomalacia, expressive aphasia, gait instability, hypothyroidism, delusional disorder, depression, is admitted to the medical floor after having multiple episodes of seizures and fall with head injury.? After reviewing the EMR, it appears the patient was evaluated for recurrent seizures, Neurology saw patient on the and stated that patient has recalcitrant epilepsy and will continue to have seizures frequently every week as she has failed all medications and combinations.? And main stay of treatment at this time is injury protection. Well at [facility] for management of depression and delusional disorder, patient had an episode of seizure disorder, she fell, hit her head, and is now bleeding from the scalp.? BHU unit does not feel that the patient can be managed appropriately on their floor as patient has had more than 5 episodes of seizures and fall with head injury and they were unable to keep her in bed to avoid more injuries. Patient is alert, slightly postictal, an emergency services professional was used, she denies any chest pain, shortness of breath, no pelvic pain, no urinary symptoms.? She hit the back of her head, slightly bleeding from the scalp.? She has multiple stitches in place from previous falls.? Vitals were conducted, negative Patient was sent for head CT and stitches to the ED but she refused both Hospital course: She presented yet again with seizures, she has difficult to control seizure with questionable adherent to management, when recently seen neurologist recommended to Continue Aptiom 600mg in am an d900mg in pm. Xcopri 150mgand clobazam 5mg in am and 20mg hs Time Spent with Patient Time attestation: Total time managing care of this patient today ____ minutes. Discharge coordination time: Greater than 30 minutes Quality: Safe Use of Opioids Does Pt have an Active Cancer Diagnosis on the Problem List?: No Quality: Stroke Does the patient have a stroke diagnosis?: No Physical Exam Vital Signs: Vital Signs: Last Vital Signs Temp 96.8 F 05/22/23 00:00 Pulse 87 05/22/23 00:00 Resp 16 05/22/23 00:00 BP 117/86 05/22/23 00:00 Pulse Ox 97 05/22/23 00:00 O2 Del Method Room Air 05/22/23 00:00 BMI result Body Mass Index 27.5 Const: Other: General: AO X 3, no acute distress Resp: CTA bilateral CVS: S1,S2,RRR GI: +BS, NT, no distention Skin: No rash Neuro: motor grossly intact Psych: appropriate affect DS: Data Data Completed and Pending Completed studies during hospitalization [Text1]: Procedures Repair Scalp Skin, External Approach (05/01/22) Discharge Plan Discharge Referrals: Physician,Unknown J [Primary Care Provider] - 1 Week Discharge Medications: No Action magnesium oxide 400 mg (241.3 mg magnesium) tablet 400 mg PO DAILY gabapentin 300 mg capsule 300 mg PO BID clobazam 20 mg tablet 20 mg PO BEDTIME Aptiom 600 mg tablet 600 mg PO DAILY Xcopri 150 mg tablet 150 mg PO DAILY haloperidol 5 mg tablet 5 mg PO BEDTIME dicyclomine 10 mg capsule 20 mg PO BID PRN (Reason: Abdominal Pain) phenobarbital 60 mg tablet 100 mg PO BEDTIME diclofenac sodium 1 % gel 2 g topical QID PRN (Reason: Pain) Rx Instructions: apply to affected area clobazam 10 mg Tablet 5 mg PO DAILY haloperidol 5 mg Tablet 5 mg PO BID PRN (Reason: PSYCHOTIC AGITATION) hydroxyzine HCl 25 mg Tablet 25 mg PO Q6H PRN (Reason: Anxiety) Aptiom 600 mg tablet 900 mg PO BEDTIME Diet: Advance to usual diet Activity on Discharge: As tolerated
[2023-05-22 07:42] VITALS: BP 127/92; PULSE 102; RESP 18; TEMP 36.1; O2SAT 98
[2023-05-22] MEDS: cloBAZam 10 MG TABLET 5 MG PO (09:23)
[2023-05-22] MEDS: Gabapentin 300 MG CAPSULE PO ×2 (09:23→20:07)
--- NOTE | 2023-05-22 11:30 | HO.PM.IMPN ---
Subjective Subjective Date of Service: 05/22/23 Interval History: uncooperative, refuses care Physical Exam Vital Signs: Vital Signs: Last Vital Signs Temp 96.9 F 05/22/23 07:42 Pulse 102 H 05/22/23 07:42 Resp 18 05/22/23 07:42 BP 127/92 H 05/22/23 07:42 Pulse Ox 98 05/22/23 07:42 O2 Del Method Room Air 05/22/23 07:42 BMI result Body Mass Index 27.5 Objective Data Active Medications Acetaminophen (Acetaminophen 325 Mg Tablet) 650 mg PO Q6H PRN PRN Reason: Pain, Mild (Pain Scale 1-3) Clobazam (Clobazam 10 Mg Tablet) 5 mg PO DAILY [facility] Last Admin: 05/22/23 09:23 Dose: 5 mg Documented By: BIRGIT Clobazam (Clobazam 10 Mg Tablet) 20 mg PO BEDTIME [facility] Last Admin: 05/21/23 22:11 Dose: 20 mg Documented By: OLIVIA Dicyclomine HCl (Dicyclomine Hcl 10 Mg Capsule) 20 mg PO BID PRN PRN Reason: Abdominal Pain Docusate Sodium (Docusate Sodium 100 Mg Capsule) 100 mg PO DAILY PRN PRN Reason: Constipation Enoxaparin Sodium (Enoxaparin Sodium 40 Mg/0.4 Ml Syringe) 40 mg SUBCUT Q24H [facility] Last Admin: 05/22/23 07:20 Dose: Not Given Documented By: BIRGIT Non-Admin Reason: Patient Refused Gabapentin (Gabapentin 300 Mg Capsule) 300 mg PO BID [facility] Last Admin: 05/22/23 09:23 Dose: 300 mg Documented By: BIRGIT Haloperidol (Haloperidol 5 Mg Tablet) 5 mg PO BID PRN PRN Reason: PSYCHOTIC AGITATION Haloperidol (Haloperidol 5 Mg Tablet) 5 mg PO BEDTIME [facility] Last Admin: 05/21/23 22:11 Dose: 5 mg Documented By: OLIVIA Hydroxyzine HCl (Hydroxyzine Hcl 25 Mg Tablet) 25 mg PO Q6H PRN PRN Reason: Anxiety Pt Own Medication ( Cenobamate [Xcopri] 150 Mg Tablet) 150 mg PO DAILY [facility] Last Admin: 05/22/23 09:23 Dose: Not Given Documented By: BIRGIT Non-Admin Reason: Med Not Available Pt Own Medication ( Eslicarbazepine [ Aptiom] 600 Mg Tablet) 600 mg PO DAILY [facility] Last Admin: 05/22/23 09:24 Dose: 600 mg Documented By: BIRGIT Pt Own Medication ( Eslicarbazepine [ Aptiom] 600 Mg Tablet) 900 mg PO BEDTIME [facility] Last Admin: 05/21/23 22:10 Dose: 900 mg Documented By: OLIVIA Ondansetron HCl (Ondansetron Hcl 4 Mg/2 Ml Vial) 4 mg IVPUSH Q8H PRN PRN Reason: Nausea and Vomiting Phenobarbital (Phenobarbital 100 Mg Tablet) 100 mg PO BEDTIME [facility] Last Admin: 05/21/23 22:11 Dose: 100 mg Documented By: OLIVIA Sodium Chloride (0.9 % Sodium Chloride Flush 3 Ml Syringe) 3 ml IVFLUSH QSHIFT [facility] Last Admin: 05/22/23 07:19 Dose: Not Given Documented By: BIRGIT Non-Admin Reason: Patient Refused Labs 05/20/23 16:18 Assessment and Plan (1) Recurrent seizures: Status: Acute Plan 57-year-old female past medical history of hypothyroidism, delusional disorder, depression, epilepsy, is admitted to medical floor after having multiple seizures episodes in [facility] recurrent and recalcitrant seizures--. CT head: Swelling of the right parietal scalp has slightly increased when compared to recent prior imaging of the head from 05/18/2023. Otherwise stable examination. No acute intracranial hemorrhage. Neurology recommends continuing present meds, no change. She refuses to wear helmet. She is a management challenge, uncooperative, psychiatrically unstable. Continue sitter, camera ? DVT prophylaxis:? Lovenox inpatient need: dispo to psych,furthervpatient further for long-term solution-tomorrow meeting with patient family-for seizure/psych medication management discussion. Time Spent With Patient Time: Total time managing care of this patient today ____ minutes. Quality Stroke Does the patient have a stroke diagnosis?: No VTE Prior VTE?: No VTE Risk Level:: Medical - moderate - high VTE Device Contraindication: Treatment Not Indicated VTE Drug Contraindication: N/A - Med Ordered
[2023-05-22 15:45] VITALS: BP 113/60; PULSE 88; RESP 18; O2SAT 99
[2023-05-22 19:44] VITALS: BP 124/83; PULSE 101; RESP 20; O2SAT 97
[2023-05-22] MEDS: cloBAZam 10 MG TABLET 20 MG PO (20:06)
[2023-05-22] MEDS: HaloperidoL 5 MG TABLET PO (20:07)
[2023-05-22] MEDS: Dicyclomine HCl 10 MG CAPSULE 20 MG PO (20:13)
[2023-05-23] VITALS: BP 131/71; PULSE 81; RESP 18; O2SAT 100
--- NOTE | 2023-05-23 07:37 | HO.PM.IMPN ---
Subjective Subjective Date of Service: 05/23/23 Interval History: She's paranoid, refuses to be seen Physical Exam Vital Signs: Vital Signs: Last Vital Signs Temp 96.9 F 05/22/23 07:42 Pulse 81 05/23/23 00:00 Resp 18 05/23/23 00:00 BP 131/71 05/23/23 00:00 Pulse Ox 100 05/23/23 00:00 O2 Del Method Room Air 05/23/23 00:00 BMI result Body Mass Index 27.5 Const: Other: She was up and walking in the room , refused to be assessed Objective Data Active Medications Acetaminophen (Acetaminophen 325 Mg Tablet) 650 mg PO Q6H PRN PRN Reason: Pain, Mild (Pain Scale 1-3) Clobazam (Clobazam 10 Mg Tablet) 5 mg PO DAILY [facility] Last Admin: 05/22/23 09:23 Dose: 5 mg Documented By: BIRGIT Clobazam (Clobazam 10 Mg Tablet) 20 mg PO BEDTIME [facility] Last Admin: 05/22/23 20:06 Dose: 20 mg Documented By: SARAH Dicyclomine HCl (Dicyclomine Hcl 10 Mg Capsule) 20 mg PO BID PRN PRN Reason: Abdominal Pain Last Admin: 05/22/23 20:13 Dose: 20 mg Documented By: SARAH Docusate Sodium (Docusate Sodium 100 Mg Capsule) 100 mg PO DAILY PRN PRN Reason: Constipation Enoxaparin Sodium (Enoxaparin Sodium 40 Mg/0.4 Ml Syringe) 40 mg SUBCUT Q24H [facility] Last Admin: 05/22/23 07:20 Dose: Not Given Documented By: BIRGIT Non-Admin Reason: Patient Refused Gabapentin (Gabapentin 300 Mg Capsule) 300 mg PO BID [facility] Last Admin: 05/22/23 20:07 Dose: 300 mg Documented By: SARAH Haloperidol (Haloperidol 5 Mg Tablet) 5 mg PO BID PRN PRN Reason: PSYCHOTIC AGITATION Haloperidol (Haloperidol 5 Mg Tablet) 5 mg PO BEDTIME [facility] Last Admin: 05/22/23 20:07 Dose: 5 mg Documented By: SARAH Hydroxyzine HCl (Hydroxyzine Hcl 25 Mg Tablet) 25 mg PO Q6H PRN PRN Reason: Anxiety Pt Own Medication ( Cenobamate [Xcopri] 150 Mg Tablet) 150 mg PO DAILY [facility] Last Admin: 05/22/23 09:23 Dose: Not Given Documented By: BIRGIT Non-Admin Reason: Med Not Available Pt Own Medication ( Eslicarbazepine [ Aptiom] 600 Mg Tablet) 600 mg PO DAILY [facility] Last Admin: 05/22/23 09:24 Dose: 600 mg Documented By: BIRGIT Pt Own Medication ( Eslicarbazepine [ Aptiom] 600 Mg Tablet) 900 mg PO BEDTIME [facility] Last Admin: 05/22/23 20:07 Dose: 900 mg Documented By: SARAH Ondansetron HCl (Ondansetron Hcl 4 Mg/2 Ml Vial) 4 mg IVPUSH Q8H PRN PRN Reason: Nausea and Vomiting Phenobarbital (Phenobarbital 100 Mg Tablet) 100 mg PO BEDTIME [facility] Last Admin: 05/22/23 20:07 Dose: 100 mg Documented By: SARAH Sodium Chloride (0.9 % Sodium Chloride Flush 3 Ml Syringe) 3 ml IVFLUSH QSHIFT [facility] Last Admin: 05/22/23 21:30 Dose: Not Given Documented By: SARAH Non-Admin Reason: No Access Labs 05/20/23 16:18 Assessment and Plan (1) Recurrent seizures: Status: Acute Plan 57-year-old female past medical history of hypothyroidism, delusional disorder, depression, epilepsy, is admitted to medical floor after having multiple seizures episodes in [facility] recurrent and recalcitrant seizures--. CT head: Swelling of the right parietal scalp has slightly increased when compared to recent prior imaging of the head from 05/18/2023. Otherwise stable examination. No acute intracranial hemorrhage. Neurology recommends continuing present meds, no change. She refuses to wear helmet. She is a management challenge, uncooperative, psychiatrically unstable. Continue sitter, camera. Multi disciplinary meeting to discuss overall care and disposition. Continue sitter and camera monitoring ? DVT prophylaxis:? Lovenox inpatient need: dispo to psych,furthervpatient further for long-term solution-tomorrow meeting with patient family-for seizure/psych medication management discussion. Time Spent With Patient Time: Total time managing care of this patient today ____ minutes. Quality Stroke Does the patient have a stroke diagnosis?: No VTE Prior VTE?: No VTE Risk Level:: Medical - moderate - high VTE Device Contraindication: Treatment Not Indicated VTE Drug Contraindication: N/A - Med Ordered
[2023-05-23 08:00] VITALS: BP 99/69; PULSE 94; RESP 18; TEMP 36.1; O2SAT 98
[2023-05-23] MEDS: Gabapentin 300 MG CAPSULE PO (08:39)
[2023-05-23] MEDS: cloBAZam 10 MG TABLET 5 MG PO (08:41)
[2023-05-23 15:20] VITALS: BP 117/70; PULSE 93; RESP 18; TEMP 36.3; O2SAT 100
--- NOTE | 2023-05-23 15:49 | MHC.CM.PN ---
Addendum entered by Miryam Kelly 05/23/23 16:33: IMM 05/20/23 Addendum entered by Miryam Kelly 05/23/23 16:30: All discharge information has been sent via [facility]port to [facility] and [facility] Home care. Patients dtr/HCP/Hamida has been contacted for transportation home. Original Note: A meeting was held re discharge planning earlier today. The meeting was held in the office of the 3rd floor Nurse Organizational Effectiveness Consultant. Case management, 3rd floor covering printer assistant and psych provider and [employer] were present. The patient's DTR/HCP/Hamida was present by phone. The case was reviewed. The main stay of treatment at this time is injury protection. Information regarding patient at home and hospital was discussed. The patient does better at home with family than she does at a facility with staff. Hamida stated that she wants to take her mother home. It was agreed that the safest dispo would be home with family support and additional services. The services in place will resume. [facility] was contacted. They will resume Med management. SN is scheduled for BID. T/W spoke with Nagi Whatley re resumption of services. Clinical information has been sent to the agency. [facility] will resume. [facility] has been referred. They will contact Hamida to set up the Day Program. [facility] was contacted for info on the [facility] program. A day program for TBI pts. Contact information and instructions were provided to Hamida via phone. Services are documented on the Discharge packet. Discharge to home today with family support and transportation.
--- NOTE | 2023-05-23 16:11 | P.DS_ITS ---
DS: Providers Provider Date of Service: 05/23/23 Date of admission: 05/19/23 23:53 Primary care physician: Lara Rivas MD Consults: 05/20/23 07:03 Consult to Psychiatry Routine Consulting Provider: Psych Covering Reason for consultation: psych eval -for multiple psych issues -interferes with care . Has provider been notified: No 05/20/23 07:05 Consult to Neurology Routine Consulting Provider: [facility] Reason for consultation: multiple seizures Has provider been notified: No 05/20/23 07:28 Consult for Sitter Routine Reason for consultation: falls/psych dis Has provider been notified: No DS: Diagnosis Discharge Diagnosis (1) Recurrent seizures: Status: Acute DS: Summary Hospital Course Hospital Course: Chief Complaint: Seizure This is a 57-year-old female with past medical history of epilepsy, encephalomalacia, expressive aphasia, gait instability, hypothyroidism, delusional disorder, depression, is admitted to the medical floor after having multiple episodes of seizures and fall with head injury.? After reviewing the EMR, it appears the patient was evaluated for recurrent seizures, Neurology saw patient on the and stated that patient has recalcitrant epilepsy and will continue to have seizures frequently every week as she has failed all medications and combinations.? And main stay of treatment at this time is injury protection. Well at [facility] for management of depression and delusional disorder, patient had an episode of seizure disorder, she fell, hit her head, and is now bleeding from the scalp.? [facility] unit does not feel that the patient can be managed appropriately on their floor as patient has had more than 5 episodes of seizures and fall with head injury and they were unable to keep her in bed to avoid more injuries. Patient is alert, slightly postictal, an patient portal representative was used, she denies any chest pain, shortness of breath, no pelvic pain, no urinary symptoms.? She hit the back of her head, slightly bleeding from the scalp.? She has multiple stitches in place from previous falls.? Vitals were conducted, negative Patient was sent for head CT and stitches to the ED but she refused both Hospital course: Patient was being treated at the Psych unit for management of depression and delusional disorder, patient had an episode of seizure disorder, she fell, hit her head, and was bleeding from the scalp.?Psych could noot managed appropriately on their floor as patient has had more than 5 episodes of seizures and fall with head injury and they were unable to keep her in bed to avoid more injuries. She was therefore admitted to the medical floor with neurology consultation. Neurologist recommends to Continue Aptiom 600mg in am an d900mg in pm. Xcopri 150mgand clobazam 5mg in am and 20mg hs. She has not had any further seizure, she is instructed and encouraged to wear protective helmet to prevent injury. At this point Psych has no further treatment option recommendation and meeting took place with patient daughter and health care proxy and she prefers patient going home with her as she functions better in the home setting. Follow up appointment have been arrangd for he. She will have visiting nurse assessment within 48 hours Time Spent with Patient Time attestation: Total time managing care of this patient today ____ minutes. Discharge coordination time: Greater than 30 minutes Quality: Safe Use of Opioids Does Pt have an Active Cancer Diagnosis on the Problem List?: No Quality: Stroke Does the patient have a stroke diagnosis?: No Physical Exam Vital Signs: Vital Signs: Last Vital Signs Temp 97.3 F 05/23/23 15:20 Pulse 93 05/23/23 15:20 Resp 18 05/23/23 15:20 BP 117/70 05/23/23 15:20 Pulse Ox 100 05/23/23 15:20 O2 Del Method Room Air 05/23/23 15:20 BMI result Body Mass Index 27.5 DS: Data Data Completed and Pending Completed studies during hospitalization [Text1]: Procedures Repair Scalp Skin, External Approach (05/01/22) Discharge Plan Discharge Anticipated Discharge Date/Time: 05/23/23 16:06 Patient Disposition: Home Health Service Discharge Diagnosis: recurrent seizure, chronic Psyhosis with delusion Referrals: [facility] [Other] - [facility] ([facility]URSING SERVICES, MEDICATION MANAGEMENT) [facility] [Other] - 1 Week (SERVICES WILL RESTART) [facility] [Other] - 1 Week (1.Go to the web site. 2. Fill out the application for services. 3. SHIP program is the day program) [facility] [Outside] - 1 Week Alex Cordero MD, PhD [Physician] - 07/10/23 2:30 pm (This is an in person appointment. You are on a cancel list should they have an earlier date) Lara Mercado MD [Primary Care Provider] - 1 Week Discharge Medications: Continued magnesium oxide 400 mg (241.3 mg magnesium) tablet 400 mg PO DAILY gabapentin 300 mg capsule 300 mg PO BID clobazam 20 mg tablet 20 mg PO BEDTIME Aptiom 600 mg tablet 600 mg PO DAILY Xcopri 150 mg tablet 150 mg PO DAILY haloperidol 5 mg tablet 5 mg PO BEDTIME dicyclomine 10 mg capsule 20 mg PO BID PRN (Reason: Abdominal Pain) phenobarbital 60 mg tablet 100 mg PO BEDTIME diclofenac sodium 1 % gel 2 g topical QID PRN (Reason: Pain) Rx Instructions: apply to affected area clobazam 10 mg Tablet 5 mg PO DAILY haloperidol 5 mg Tablet 5 mg PO BID PRN (Reason: PSYCHOTIC AGITATION) hydroxyzine HCl 25 mg Tablet 25 mg PO Q6H PRN (Reason: Anxiety) Aptiom 600 mg tablet 900 mg PO BEDTIME Discharge Orders: Discharge Order (Routine); Ordered 05/23/23 Ordered By: Dat Rodríguez Diet: Advance to usual diet Activity on Discharge: As tolerated Stand Alone Forms: Patient Portal Discharge page Care Plan Goals: control of seizure Health Concerns: seizure desorder Psychosis with delusion Plan of Treatment: take all your medications as before, follow up with your therapist as schedule, follow up with seizure specialist as arranged Assessment: as above
--- NOTE | 2023-05-23 16:19 | W.MHC.F2F ---
Service Date Service Date: 05/23/23 Encounter Date of encounter: 05/23/23 Reasons for Services Signs and symptoms assessed: recurrent seziures, psychosis Reason for retirement: medication management and teach disease management Homebound: Leaving the home is medically contraindicated at this time without the asist of a device and/or another person due th the listed conditions above and below. Reason homebound: other (fall risk related to frequent seizures and psychosis) Homebound supporting statement: homebound due to recurrent and frequent seizure, psychosis and need close monitoring another person at all times Certification: Based on the above findings, I certify that this patient is confined to the home and needs intermittent retirement care, physical therapy and/or speech therapy, or continues to need occupational therapy. The patient is under my care, and I have initiated the establishment of the plan of care. The patient will be followed by a physician who will periodically review the plan of care. Time Spent With Patient Time: Total time managing care of this patient today ____ minutes.
--- NOTE | 2023-05-23 18:08 | PC.NURSE ---
Patient refused to take home a protective helmet,daughter stated she will not take anything her mom do not want to take,placed in dirty utility room,charge nurse aware
--- NOTE | 2023-05-23 23:48 | PC.NURSE ---
Home meds Aptiom, Clobazam and Xcopri returned directly to patients daughter this evening.
== END 2023-05-23 18:12 | disposition home health service (06) | DRG 101 ==
LOC: HO.S3 05-23 18:09 → HO.EDOVER 07-10 13:39
PROVIDERS: Admitting Provider Internal Medicine; PCP Internal Medicine; Visit Provider Internal Medicine
DX: G40.919 Epilepsy, unspecified, intractable, without status epilepticus (principal); F22 Delusional disorders; E03.9 Hypothyroidism, unspecified; Z91.041 Radiographic dye allergy status; Z79.899 Other long term (current) drug therapy
CPT/HCPCS: 36415; 70450; 71101; 72125; 80048; 80053; 80061; 80184; 80307; 81001; 82306; 82550; 82607; 82746; 82947; 83036; 83690; 84443; 85025; 85610; 85730; 87635; 93005; 99285; J2060; J2560; S9485

== ENCOUNTER → 2023-05-19 23:53 | Outpatient (BNV) | payer MEDICARE, MEDICAID, SELFPAY | PROVIDERS: Admitting Provider Internal Medicine; Visit Provider Internal Medicine | DX: G40.909 Epilepsy, unspecified, not intractable, without status epilepticus (principal); R29.6 Repeated falls | CPT/HCPCS: 99223; 99231; 99232; 99239; 99499; G0180 ==

== ENCOUNTER → 2023-05-19 23:53 | Outpatient (BNV) | payer MEDICARE, MEDICAID, SELFPAY | PROVIDERS: Admitting Provider Internal Medicine; Visit Provider Psychiatry & Neurology Psychiatry | DX: F22 Delusional disorders (principal); F29 Unspecified psychosis not due to a substance or known physiological condition; G40.909 Epilepsy, unspecified, not intractable, without status epilepticus | CPT/HCPCS: 99232 ==

== ENCOUNTER 2023-06-28 08:54 | Outpatient (AMB) | payer MEDICARE, MEDICAID, SELFPAY ==
--- NOTE | 2023-06-28 09:16 | MHC.PC.OV ---
Vital Signs 06/28/23 09:17 Height 5 ft 5 in Weight 167 lb BMI 27.8 BP 102/68 Blood Pressure Location Lt brachial Position Sitting Pulse 90 Pulse Source Pulse Oximeter Pulse Oximetry (%) 97 Oxygen Delivery Method Room Air Intake Visit Reasons: [facility] 05/11-05/23 hallucinations and seizures Intake Note: Patient is here for hospital discharge follow up. Patient was discharged from [facility] on 05/11/08. No Experience Required: Yes No Experience Language: S[place]an Allergies Iodinated Contrast Media [IV Dye, Iodine Containing] Allergy (Intermediate, Verified 06/28/23 09:45) RED ALL OVER NAUSEA AND LOST RESPIRATIONS Penicillins [PENICILLINS] Allergy (Intermediate, Verified 06/28/23 09:45) Unknown phenytoin [From Dilantin] Allergy (Intermediate, Verified 06/28/23 09:45) gum swelling lamotrigine [From Lamictal] Allergy (Unknown, Verified 06/28/23 09:45) unknown Medication List - Last Reconciled 06/28/23 by ADILSON Diaz cenobamate (Xcopri) 150 mg PO DAILY clobazam 5 mg PO DAILY clobazam 20 mg PO BEDTIME diclofenac sodium 1% 2 grams topical QID PRN dicyclomine 20 mg PO BID PRN eslicarbazepine (Aptiom) 900 mg PO BEDTIME eslicarbazepine (Aptiom) 600 mg PO DAILY gabapentin 300 mg PO BID haloperidol 5 mg PO BEDTIME haloperidol 5 mg PO BID PRN hydroxyzine HCl 25 mg PO Q6H PRN magnesium oxide 400 mg PO DAILY phenobarbital 100 mg PO BEDTIME Tobacco use date assessed: 06/28/23 Dental Screening Dental Screen Date: 06/28/23 Did you have a dental visit in the last 12 months?: Yes Did you have a dental problem in the last 6 months where you did not have access to dental care?: No Was dental information given to patient?: Patient has dentist HPI HPI Comments History of Present Illness Details 57-year-old female with past medical history epilepsy, encephalomalacia expressive aphasia, gait instability, hypothyroidism, delusional disorder, depression. Patient of Dr. Lam Presents today for hospital discharge follow-up. Hospital course is noted below. Hospital Course: Chief Complaint: Seizure This is a 57-year-old female with past medical history of epilepsy, encephalomalacia, expressive aphasia, gait instability, hypothyroidism, delusional disorder, depression, is admitted to the medical floor after having multiple episodes of seizures and fall with head injury.? After reviewing the EMR, it appears the patient was evaluated for recurrent seizures, Neurology saw patient on the and stated that patient has recalcitrant epilepsy and will continue to have seizures frequently every week as she has failed all medications and combinations.? And main stay of treatment at this time is injury protection. Well at [facility] for management of depression and delusional disorder, patient had an episode of seizure disorder, she fell, hit her head, and is now bleeding from the scalp.? U unit does not feel that the patient can be managed appropriately on their floor as patient has had more than 5 episodes of seizures and fall with head injury and they were unable to keep her in bed to avoid more injuries. Patient is alert, slightly postictal, an reeler operator was used, she denies any chest pain, shortness of breath, no pelvic pain, no urinary symptoms.? She hit the back of her head, slightly bleeding from the scalp.? She has multiple stitches in place from previous falls.?Follows with Dr. barnes who is sending new seziure medication Vitals were conducted, negative Patient was sent for head CT and stitches to the ED but she refused both Hospital course: Patient was being treated at the Psych unit for management of depression and delusional disorder, patient had an episode of seizure disorder, she fell, hit her head, and was bleeding from the scalp.?Psych could noot managed appropriately on their floor as patient has had more than 5 episodes of seizures and fall with head injury and they were unable to keep her in bed to avoid more injuries. She was therefore admitted to the medical floor with neurology consultation. Neurologist recommends to Continue Aptiom 600mg in am an d900mg in pm. Xcopri 150mgand clobazam 5mg in am and 20mg hs. She has not had any further seizure, she is instructed and encouraged to wear protective helmet to prevent injury. At this point Psych has no further treatment option recommendation and meeting took place with patient daughter and health care proxy and she prefers patient going home with her as she functions better in the home setting. Follow up appointment have been arrangd for he. She will have visiting nurse assessment within 48 hours Patient presents today with her PICKLE MAKER who assists and interpretation. PICKLE MAKER denies recurrent delusion thoughts and denies seizure activity over the past 2 weeks. It was recommended discharge summary the patient should wear protective helmet, patient made aware of this and appointment today patient refuses to wear protective helmet. Patient currently has VNA services at home 3 times a week and she has daily PICKLE MAKER services for 4 hours per day. Patient currently following with Dr. Barnes neurologist. Patient requesting handicap placard for daughters car as she has difficulty ambulating long distances. Patient she needs to complete form from [facility] and bring it in to be completed. [facility], [facility] Medical History Burn injury Class 1 obesity due to excess calories with body mass index (BMI) of 30.0 to 30.9 in adult Delusional disorder Depression Encephalomalacia Epilepsy Expressive aphasia Gait instability GERD (gastroesophageal reflux disease) Hypomagnesemia Hyponatremia Hypotension IBS (irritable bowel syndrome) Mild recurrent major depression Overactive bladder Polyarthralgia Pre-op evaluation Pre-op examination Screening for cervical cancer Seizures Unsteady gait Urge urinary incontinence Urinary incontinence Surgical History H/O prior ablation treatment History of section History of skin graft History of tubal ligation History of tumor Surgical history unknown Family History Father Heart problem Mother Diabetes Low blood pressure Family/Other Substance use disorder Mental health disorder Social History Household Members: Family Household Members Other:: with daughter Housing: Unknown / Unable to assess Do you presently have visiting nurse or other home services: No Unable to assess alcohol history related to: Unknown Alcohol intake: never Patient Tobacco Use Status: Never used Tobacco e-Cigarette/Vaping Use: Never Used Second Hand Smoke Exposure: No Advance Directives Date on File: 01/09/23 service: No Current occupational status: disabled Current occupation: rt handed Sexual orientation: Straight/Heterosexual Gender identity: Female Cognitive needs: Yes (walker) Hearing needs: No Vision needs: Yes (glasses) Questionnaire PHQ-9 Over the last 2 weeks, how often have you been bothered by any of the following problems? 1. Little interest or pleasure in doing things: not at all 2. Feeling down, depressed, or hopeless: not at all 3. Trouble falling or staying asleep, or sleeping too much: not at all 4. Feeling tired or having little energy: not at all 5. Poor appetite or overeating: not at all 6. Feeling bad about yourself - or that you are a failure or have let yourself or your family down: not at all 7. Trouble concentrating on things, such as reading the newspaper or watching television: not at all 8. Moving or speaking so slowly that other people could have noticed. Or the opposite - being so fidgety or restless that you have been moving around a lot more than usual: not at all 9. Thoughts that you would be better off or of hurting yourself in some way: not at all Total score: 0 Depression Screening Interpretation: Negative Depression Screening Done: Yes 30385 - PHQ-9 Billing: Yes Source: Developed by Drs. Yasmany Geronimo, Shazia Gaytan, Igor Park and colleagues, with an educational robin from [employer]. Thrive Questionnaire Date Thrive assessed: 05/20/23 AUDIT C Alcohol Use Questionnaire (AUDIT-C) 1. How often do you have a drink containing alcohol?: Never Total Score: 0 KERRY-7 AMB Questionnaire KERRY-7 Date KERRY - 7 assessed: 03/16/23 Source: Developed by Drs. Yasmany Geronimo, Igor De Luna and colleagues, with an educational robin from [employer]. Review of Systems Const Denies chills, Denies fatigue, Denies fever(s) and Denies poor appetite Eyes Denies no additional complaints ENT Reports Normal hearing present Card Denies chest pain, Denies syncope, Denies rapid heart rate and Denies dyspnea Resp Denies cough and Denies dyspnea GI Denies change in stool character, Denies constipation, Denies diarrhea, Denies nausea and Denies vomiting Denies urinary frequency, Denies dysuria and Denies urinary urgency Neuro Reports Normal hearing present, Denies confusion and Denies syncope Psych Denies confusion Endo Denies fatigue Physical exam (Primary Care) Vital Signs: Last Vital Signs Pulse 90 06/28/23 09:17 BP 102/68 06/28/23 09:17 Pulse Ox 97 06/28/23 09:17 Oxygen Delivery Method Room Air 06/28/23 09:17 BMI result Body Mass Index 27.8 Tobacco/Smoking Status: Tobacco use Status Tobacco use date assessed 06/28/23 06/28/23 09:22 Patient Tobacco Use Status Never used Tobacco 06/28/23 09:22 Tobacco use type 11/16/22 09:40 e-Cigarette/Vaping Use Never Used 06/28/23 09:22 PHQ-9: PHQ-9 Score PHQ-9: Total score 0 06/28/23 09:53 Depression Screening Interpretation: Negative Thrive Assessment: Date of Thrive Assessment Date Thrive assessed 05/20/23 06/28/23 09:22 Const General: No confusion Orientation/consciousness: No confusion HENMT Head: Yes normocephalic and Yes atraumatic Eyes Conjunctivae: conjunctivae normal Chest Chest palpation & inspection: normal inspection of the chest Resp Effort & Inspection: normal respiratory effort Auscultation: clear to auscultation bilaterally, no crackles, no rhonchi and no wheezes Cardio Rate: regular rate Rhythm: regular rhythm Heart sounds: S1 normal heart sound present and S2 normal heart sound present GI Inspection: Yes normal to inspection Neuro General: No confusion Cranial nerves: Yes Normal hearing present Extrem General: No edema Office Procedures Flu Questionnaire Does the patient have a severe egg allergy?: No Does the patient have severe life threatening allergies?: No Does the patient have a fever or illness today?: No Has the patient ever had Guillain-[place] Syndrome?: No Has the patient ever had any past reaction to a flu shot?: No Immunizations flu vacc [id number] 6mos up(PF) 60 mcg(15 mcgx4)/0.5 mL IM syringe Performing Provider: ADILSON Diaz Performing Location: [facility] Administered by: OANH Angel on 06/28/23 09:24 Dose Route Admin Location Dispensed Lot Number Expiration Date NDC C[place]age [place] 0.5 mL IM Left Deltoid 0.5 mL [id number] 03/23/24 09096-928-61 [employer] VIS Given Date VIS Provided VIS Publication Date 06/28/23 Single Vaccine 21 Eligibility Eligibility Date Funding Source Not VFC Eligible 06/28/23 Private Assessment and Plan Assessment & Plan (1) Hospital discharge follow-up: Code(s): Z09 - Encounter for follow-up examination after completed treatment for conditions other than malignant neoplasm (2) Epilepsy: Code(s): G40.909 - Epilepsy, unspecified, not intractable, without status epilepticus Plan: Continue to follow-up Neurology. Denies any recent seizure activity x2 weeks. Continue on current medications. Orders: Orders Influenza [id number] Immunization Today Z23 - Encounter for immunization Coding Level of Care Code Est Pt Level 3 (38637) Diagnoses Hospital discharge follow-up Z09 Partial symptomatic epilepsy with complex partial seizures, intractable, without status epilepticus G40.909
[2023-06-28 09:17] VITALS: BP 102/68; PULSE 90; O2SAT 97; BMI 27.8
== END 2023-06-28 10:51 | disposition home or self-care (01) ==
PROVIDERS: PCP Internal Medicine; Visit Provider Nurse Practitioner Family
DX: Z09 Encounter for follow-up examination after completed treatment for conditions other than malignant neoplasm (principal); G40.909 Epilepsy, unspecified, not intractable, without status epilepticus; Z23 Encounter for immunization
CPT/HCPCS: 90471; 90686; 99213

== ENCOUNTER 2023-07-13 08:40 | Outpatient (REF) | payer MEDICARE, MEDICAID, SELFPAY ==
--- NOTE | ~2023-07-13 | CT_ITS ---
EXAMINATION: CT head/brain wo IV con CLINICAL INFORMATION: Reason for Exam INTRACTABLE EPILEPSY COMPARISON: Multiple prior examinations, most recently CT head 05/20/2023 TECHNIQUE: Contiguous axial imaging was performed from the skull base to vertex without intravenous contrast. Sagittal and coronal reformatted images were obtained. This CT examination was performed using dose optimization techniques as appropriate, variously including the following: * Automated exposure control * Adjustment of mA and/or kV according to patient size (this includes techniques or standardized protocols for targeted exams where dose is matched to indication/reason for exam; i.e. extremities or head) Use of iterative reconstruction technique DLP: 744 mGy-cm FINDINGS: Again seen are surgical skin jakub and soft tissue swelling along the high posterior calvarium. Left parietal craniotomy with underlying encephalomalacia/gliosis. Associated ex vacuo dilatation of the left lateral ventricle is again noted. There is no evidence of acute intracranial hemorrhage. No mass-effect or ventricular shift is noted. No acute, territorial loss of williamson-white differentiation. Periventricular and subcortical white matter hypodensity is nonspecific but likely represents chronic microvascular ischemic change. Intracranial atherosclerotic calcification is noted. The visualized paranasal sinuses are well-aerated. The mastoid air cells are clear. CT/CT head/brain wo IV con IMPRESSION: Redemonstrated biparietal soft tissue swelling with overlying surgical skin jakub. No acute intracranial hemorrhage. Left high parietal craniotomy with underlying encephalomalacia/gliosis.
== END 2023-07-13 08:41 | disposition home or self-care (01) ==
LOC: HO.CT 08:40
PROVIDERS: PCP Internal Medicine; Visit Provider Psychiatry & Neurology Neurology
DX: G40.919 Epilepsy, unspecified, intractable, without status epilepticus (principal)
CPT/HCPCS: 70450

== ENCOUNTER 2023-09-05 13:20 | Outpatient (AMB) | payer MEDICARE, MEDICAID, SELFPAY ==
[2023-09-05 13:26] VITALS: BP 110/68; BMI 29.5
--- NOTE | 2023-09-05 13:26 | A.OFFPC_ITS ---
Vital Signs 09/05/23 13:26 Height 5 ft 5 in Weight 177 lb BMI 29.5 BP 110/68 Blood Pressure Location Lt brachial Position Sitting Intake Visit Reasons: seizures NEEDS 30 MINUTES Intake Note: Patient here for a follow up seizures, c/o right side pain due to a fall Satellite Communications Engineer Required: No Accompanied by: Daughter Allergies Iodinated Contrast Media [IV Dye, Iodine Containing] Allergy (Intermediate, V erified 09/05/23 13:41) RED ALL OVER NAUSEA AND LOST RESPIRATIONS Penicillins [PENICILLINS] Allergy (Intermediate, Verified 09/05/23 13:41) Unknown phenytoin [From Dilantin] Allergy (Intermediate, Verified 09/05/23 13:41) gum swelling lamotrigine [From Lamictal] Allergy (Unknown, Verified 09/05/23 13:41) unknown Medication List - Last Reconciled 09/05/23 by Lara Rivas MD cenobamate (Xcopri) 150 mg PO DAILY clobazam 5 mg PO DAILY clobazam 10 mg PO BEDTIME dicyclomine 10 mg PO QID eslicarbazepine (Aptiom) 600 mg PO BEDTIME gabapentin 300 mg PO BID haloperidol 5 mg PO BEDTIME haloperidol 5 mg PO BID PRN hydroxyzine HCl 25 mg PO Q6H PRN magnesium oxide 400 mg PO QAM 90 days pantoprazole (Protonix) 40 mg PO DAILY phenobarbital 64.8 mg PO BID Tobacco use date assessed: 06/28/23 Dental Screening Dental Screen Date: 09/05/23 Did you have a dental visit in the last 12 months?: Yes Did you have a dental problem in the last 6 months where you did not have access to dental care?: No Was dental information given to patient?: Patient has dentist HPI HPI Comments History of Present Illness Details This is a 57-year-old female with mild major depression, seizures, hypomagnesemia and hyperkalemia that comes today accompanied by daughter for follow-up on her conditions. Depression has been in remission. Still has seizures almost daily and this is follow by Neurology. She fell and hit her right ribcage and that is tender and x-ray will be order. On magnesium supplement 4 hypomagnesemia that will be checked. Last potassium was mildly elevated and will also be checked. [facility] Medical History (Updated 09/05/23 @ 13:51 by Lara Rivas MD) Psychosis Recurrent seizures Hypomagnesemia Burn injury Delusional disorder Epilepsy Urinary incontinence IBS (irritable bowel syndrome) Overactive bladder Class 1 obesity due to excess calories with body mass index (BMI) of 30.0 to 30.9 in adult Mild recurrent major depression Gait instability Polyarthralgia Depression Urge urinary incontinence Screening for cervical cancer Pre-op examination Pre-op evaluation Unsteady gait Expressive aphasia Hyponatremia Encephalomalacia GERD (gastroesophageal reflux disease) Hypotension Seizures Surgical History History of tumor H/O prior ablation treatment History of skin graft History of tubal ligation History of section Surgical history unknown Family History Father Heart problem Mother Diabetes Low blood pressure Family/Other Substance use disorder Mental health disorder Social History Household Members: Family Household Members Other:: with daughter Housing: Unknown / Unable to assess Do you presently have visiting nurse or other home services: No Unable to assess alcohol history related to: Unknown Alcohol intake: never Comment: 1:1 sitter Patient Tobacco Use Status: Never used Tobacco e-Cigarette/Vaping Use: Never Used Second Hand Smoke Exposure: No Advance Directives Date on File: 01/09/23 service: No Current occupational status: disabled Current occupation: rt handed Sexual orientation: Straight/Heterosexual Gender identity: Female Cognitive needs: Yes (walker) Hearing needs: No Vision needs: Yes (glasses) Questionnaire Thrive Questionnaire Date Thrive assessed: 05/20/23 KERRY-7 AMB Questionnaire KERRY-7 Date KERRY - 7 assessed: 03/16/23 Source: Developed by Drs. Yasmany Geronimo, Shazia Gaytan, Igor Park and colleagues, with an educational robin from [employer]. Review of Systems Const All systems reviewed & are unremarkable except as noted in HPI and below Eyes Reports no additional complaints, Denies change in vision and Denies other visual disturbances Card Denies chest pain at rest, Denies chest pain with activity, Denies edema, Denies irregular heart rhythm, Denies claudication, Denies dyspnea, Denies dyspnea on exertion, Denies orthopnea, Denies paroxysmal nocturnal dyspnea and Denies slow heart rate Resp Denies cough, Denies dyspnea and Denies dyspnea on exertion GI Denies abdominal pain, Denies change in bowel habits, Denies excessive flatus, Denies nausea and Denies vomiting Denies urinary incontinence, Denies urinary hesitancy and Denies urinary urgency Musc Denies abnormal gait, Denies atrophy, Denies deformity and Denies limited range of motion Skin/Breast Denies bleeding lesions, Denies changing lesions and Denies rash Neuro Denies abnormal gait and Denies lack of coordination Physical exam (Primary Care) Vital Signs: Last Vital Signs BP 110/68 09/05/23 13:26 BMI result Body Mass Index 29.5 Tobacco/Smoking Status: Tobacco use Status Tobacco use date assessed 06/28/23 09/05/23 13:37 Patient Tobacco Use Status Never used Tobacco 09/05/23 13:37 Tobacco use type 09/05/23 11:13 e-Cigarette/Vaping Use Never Used 09/05/23 13:37 Thrive Assessment: Date of Thrive Assessment Date Thrive assessed 05/20/23 09/05/23 13:37 Eyes General: appearance normal, both eyes and all related structures Eyelids: Yes eyelids normal Conjunctivae: conjunctivae normal Neck Neck: Yes normal visual inspection and Yes supple Resp Effort & Inspection: normal respiratory effort Auscultation: clear to auscultation bilaterally Cardio Jugular venous distension: no JVD Rate: regular rate Rhythm: regular rhythm Heart sounds: S1 normal heart sound present and S2 normal heart sound present Extrem General: Yes full ROM Assessment and Plan Assessment & Plan (1) Seizure: Code(s): R56.9 - Unspecified convulsions Plan: Continue phenobarbital. Follow-up with Neurology. (2) Rib pain on right side: Code(s): R07.81 - Pleurodynia Plan: X-ray ordered. (3) Hypomagnesemia: Code(s): E83.42 - Hypomagnesemia Plan: Continue magnesium supplement. (4) Mild recurrent major depression: Code(s): F33.0 - Major depressive disorder, recurrent, mild Plan: In remission. (5) Hyperkalemia: Code(s): E87.5 - Hyperkalemia Plan: Repeat potassium. Orders: Orders XR ribs RT 2V Today R07.81 - Pleurodynia Magnesium Today E83.42 - Hypomagnesemia Comprehensive Met. Panel Today R56.9 - Unspecified convulsions Phenobarbital Today R56.9 - Unspecified convulsions Coding Level of Care Code Est Pt Level 4 (78289) Diagnoses Seizure R56.9 Rib pain on right side R07.81 Hypomagnesemia E83.42 Mild recurrent major depression F33.0 Hyperkalemia E87.5 Time Spent (min) 22
== END 2023-09-05 13:47 | disposition home or self-care (01) ==
PROVIDERS: PCP Internal Medicine; Visit Provider Internal Medicine
DX: R56.9 Unspecified convulsions (principal); R07.81 Pleurodynia; E83.42 Hypomagnesemia; F33.0 Major depressive disorder, recurrent, mild; E87.5 Hyperkalemia
CPT/HCPCS: 99214

== ENCOUNTER 2023-09-05 13:56 | Outpatient (REF) | payer MEDICARE, MEDICAID, SELFPAY ==
--- NOTE | ~2023-09-05 | XR_ITS ---
EXAMINATION: XR RIBS, RIGHT CLINICAL INFORMATION: Pleurodynia COMPARISON: PA chest and right RIBS 05/10/2023 TECHNIQUE: PA chest and 3 views of the right ribs were obtained. FINDINGS: Lungs are clear. No consolidation, pneumothorax, or pleural effusion. The cardiomediastinal silhouette and pulmonary vasculature are normal. A left-sided nerve stimulator device is noted. There is a healed fracture of the right fourth posterior rib and healing fractures of the right posterior and lateral ninth and lateral 10th ribs. There is also a sclerotic density in the posterior 11th rib which may also represent a healed fracture. XR/XR ribs RT min 3V w CXR1V IMPRESSION: 1. No acute cardiopulmonary disease. 2. Healing fractures of the right fourth, ninth and 10th ribs and possibly the 11th rib
[2023-09-05 15:13] LABS: Alanine Aminotransferase 21 U/L (0-31); Albumin Level 3.9 g/dL (3.5-5.0); Alkaline Phosphatase 126 U/L (39-117); Anion Gap 12 (12-20); Aspartate Amino Transferase 18 U/L (5-31); Bilirubin Total 0.1 mg/dL (0.0-1.0); Blood Urea Nitrogen 15 mg/dL (9-16); Calcium 9.2 mg/dL (8.4-10.2); Carbon Dioxide 30 mmol/L (22-29); Chloride 102 mmol/L (96-108); Estimated Glomerular Filt Rate > 60; Glucose Random 88 mg/dL (60-115); Magnesium 1.8 mg/dL (1.6-2.6); Potassium 4.8 mmol/L (3.3-5.1); Sodium 139 mmol/L (135-145); Total Protein 7.4 g/dL (6.5-8.0)
== END 2023-09-05 13:57 | disposition home or self-care (01) ==
LOC: HO.LAB 13:56
PROVIDERS: PCP Internal Medicine; Visit Provider Internal Medicine
DX: R56.9 Unspecified convulsions (principal); E83.42 Hypomagnesemia; R07.81 Pleurodynia
CPT/HCPCS: 36415; 71101; 80053; 80184; 83735

== ENCOUNTER 2023-09-11 09:31 | Outpatient (AMB) | payer MEDICARE, MEDICAID, SELFPAY ==
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
[2023-09-11 09:37] VITALS: BP 112/72; BMI 29.0
== END 2023-09-11 12:56 | disposition home or self-care (01) ==
PROVIDERS: Visit Provider Advanced Practice Midwife
DX: Z01.419 Encounter for gynecological examination (general) (routine) without abnormal findings (principal)
CPT/HCPCS: G0101

== ENCOUNTER → 2023-09-11 09:31 | Outpatient (BNVA) | payer MEDICARE, MEDICAID, SELFPAY | PROVIDERS: Visit Provider Advanced Practice Midwife | DX: Z01.419 Encounter for gynecological examination (general) (routine) without abnormal findings (principal) | CPT/HCPCS: G0101 ==

== ENCOUNTER 2023-09-29 10:20 | Emergency (ER) | payer MEDICARE, MEDICAID, SELFPAY ==
[2023-09-29 10:29] VITALS: BP 138/100; BP 147/91; PULSE 77; PULSE 90; RESP 12; TEMP 36.9; O2SAT 100; BMI 24.4
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
[2023-09-29 13:13] VITALS: BP 132/74; PULSE 75; RESP 14; O2SAT 99
[2023-09-29 17:12] VITALS: BP 133/79; PULSE 83; RESP 14; O2SAT 99
== END 2023-09-29 17:19 | disposition home or self-care (01) ==
PROVIDERS: Emergency Provider Student in an Organized Health Care Education/Training Program
DX: G40.909 Epilepsy, unspecified, not intractable, without status epilepticus (principal); R29.700 NIHSS score 0; Z11.52 Encounter for screening for COVID-19; Z79.899 Other long term (current) drug therapy
CPT/HCPCS: 36415; 70450; 71045; 73562; 80048; 80076; 80184; 80307; 82140; 83605; 83690; 83735; 84443; 84484; 85025; 85610; 85730; 87502; 87635; 93005; 96372; 99284; J2060

== ENCOUNTER → 2023-09-29 10:39 | Outpatient (BNV) | payer MEDICARE, MEDICAID, SELFPAY | PROVIDERS: Emergency Provider Student in an Organized Health Care Education/Training Program; Visit Provider Internal Medicine Cardiovascular Disease | DX: R56.9 Unspecified convulsions (principal) | CPT/HCPCS: 93010 ==

== ENCOUNTER 2023-10-22 09:26 | Outpatient (REF) | payer MEDICARE, MEDICAID, SELFPAY ==
--- NOTE | ~2023-10-22 | MM_ITS ---
EXAMINATION: MM SCREENING DIGITAL BREAST TOMOSYNTHESIS, BILATERAL CLINICAL INFORMATION: Screening. Asymptomatic. COMPARISON: Mammography: This study is compared with prior exams dating back to 2015. TECHNIQUE: Digital breast tomosynthesis is performed in both the craniocaudal and mediolateral oblique views along with computer-aided detection (CAD). Synthesized 2D images are generated from the tomosynthesis. FINDINGS: There are scattered areas of fibroglandular density (ACR BI-RADS breast composition Category b). There are no significant masses, abnormal calcifications, or other abnormalities. There is a pacemaker in the superior most aspect of the left breast. MM/MM tomosynthesis screening BI IMPRESSION: No mammographic evidence of malignancy. ASSESSMENT: BI-RADS BI-RADS 1 - Negative RECOMMENDATION: Routine annual mammography screening. 1 year F/U This examination should not preclude the clinical evaluation of a suspicious palpable abnormality. This patient's information was entered into a reminder system with a target due date for their next mammogram.
== END 2023-10-22 09:27 | disposition home or self-care (01) ==
LOC: HO.MAMMO 09:26
PROVIDERS: PCP Internal Medicine; Visit Provider Advanced Practice Midwife
DX: Z12.31 Encounter for screening mammogram for malignant neoplasm of breast (principal)
CPT/HCPCS: 77063; 77067

== ENCOUNTER → 2023-10-22 11:15 | Outpatient (BNV) | payer MEDICARE, MEDICAID, SELFPAY | PROVIDERS: PCP Internal Medicine; Visit Provider Radiology Diagnostic Radiology | DX: Z12.31 Encounter for screening mammogram for malignant neoplasm of breast (principal) | CPT/HCPCS: 77063; 77067 ==

== ENCOUNTER 2023-12-11 09:18 | Outpatient (AMB) | payer MEDICARE, MEDICAID, SELFPAY ==
[2023-12-11 09:24] VITALS: BP 112/70; BMI 28.2
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
== END 2023-12-11 09:53 | disposition home or self-care (01) ==
PROVIDERS: PCP Internal Medicine; Visit Provider Internal Medicine
DX: M79.604 Pain in right leg (principal); M79.605 Pain in left leg; Z91.81 History of falling; F33.40 Major depressive disorder, recurrent, in remission, unspecified; R56.9 Unspecified convulsions; K21.9 Gastro-esophageal reflux disease without esophagitis
CPT/HCPCS: 99214

== ENCOUNTER 2023-12-11 10:40 | Outpatient (REF) | payer MEDICARE, MEDICAID, SELFPAY ==
--- NOTE | ~2023-12-11 | US_ITS ---
EXAMINATION: US VENOUS ULTRASOUND WITH DOPPLER LOWER EXTREMITY, BILATERAL CLINICAL INFORMATION: Bilateral leg pain. COMPARISON: None available. TECHNIQUE: Ultrasound of the deep veins is performed from the hip to the calf with compression sonography and color and pulse Doppler assessment. Spectral analysis with color-flow imaging is performed. FINDINGS: RIGHT: There is normal venous compression and respiratory variation and augmented flow. The visualized common femoral vein, superficial femoral vein, profunda femoral vein, popliteal vein, and the trifurcation region shows no evidence of deep venous thrombosis. There is no significant popliteal fossa cyst. LEFT: There is normal venous compression and respiratory variation and augmented flow. The visualized common femoral vein, superficial femoral vein, profunda femoral vein, popliteal vein, and the trifurcation region shows no evidence of deep venous thrombosis. There is no significant popliteal fossa cyst. If the patient's symptoms persist, followup ultrasound in 5 days 7 days might be of value to exclude proximal propagation from a non-visualized calf vein. US/US venous duplex LE BI IMPRESSION: No DVT demonstrated in the bilateral lower extremity.
== END 2023-12-11 10:41 | disposition home or self-care (01) ==
LOC: HO.HMGCX 10:40
PROVIDERS: PCP Internal Medicine; Visit Provider Internal Medicine
DX: M79.604 Pain in right leg (principal); M79.605 Pain in left leg
CPT/HCPCS: 93970

== ENCOUNTER 2024-01-06 18:47 | Emergency (ER) | payer MEDICARE, MEDICAID, SELFPAY ==
--- NOTE | ~2024-01-06 | CT_ITS ---
EXAMINATION: CT HEAD WITHOUT CONTRAST CLINICAL INFORMATION: Seizure. Large right forehead contusion. COMPARISON: CT head dated 09/29/2023. TECHNIQUE: Contiguous axial imaging was performed from the skull base to vertex without intravenous administration of contrast. This CT examination was performed using dose optimization techniques as appropriate, variously including the following: *Automated exposure control *Adjustment of mA and/or kV according to patient size (this includes techniques or standardized protocols for targeted exams where dose is matched to indication/reason for exam; i.e. extremities or head) *Use of iterative reconstruction technique DLP: 702.81 mGy-cm FINDINGS: There is no acute intracranial hemorrhage. There is no evidence of acute/subacute cerebral or cerebellar infarction. There is an area of encephalomalacia within the left parietal lobe with ex vacuo dilatation of the adjacent left lateral ventricle. There is no midline shift or mass effect. There is no extra-axial fluid collection. No hydrocephalus. The orbits are symmetric and within normal limits. There is a large right periorbital/right forehead hematoma. There is a left parietal craniotomy defect. No acute cranial fracture. The mastoid air cells are well aerated. Paranasal sinuses are clear. CT/CT head/brain wo IV con IMPRESSION: No intracranial hemorrhage. There is a large right periorbital/right forehead hematoma.
[2024-01-06 18:53] VITALS: BP 150/90; PULSE 80; O2SAT 98
[2024-01-06 18:58] VITALS: BP 136/70; PULSE 81; RESP 15; TEMP 37.2; O2SAT 100
[2024-01-06 19:06] VITALS: BMI 32.3
[2024-01-06 19:39] LABS: MANUAL DIFF FLAG NO
[2024-01-06 19:40] LABS: Basophils Percent Auto 0.7 % (0-2); Eosinophils Percent Auto 0.4 % (0-4); Hematocrit 39.1 % (37.0-47.0); Imm Gran Abs Auto 0.01 X10*3/uL (0.00-0.03); Imm Gran Pct Auto 0.2 % (0.0-0.4); Lymphocytes Absolute Auto 0.8 X10*3/uL (1.2-4.9); Lymphocytes Percent Auto 14.3 % (20-40); Mean Corpuscular HGB Conc 33.2 g/dl (31.0-35.0); Mean Corpuscular Hemoglobin 30.7 pg (27.0-33.0); Mean Corpuscular Volume 92.4 fL (80.0-98.0); Mean Platelet Volume 10.1 fL (9.4-12.3); Monocytes Absolute Auto 0.6 X10*3/uL (0.1-1.2); Monocytes Percent Auto 10.8 % (2-11); Neutrophils Percent Auto 73.6 % (45-73); Platelet Count 204 X10*3/uL (160-400); Red Blood Count 4.23 X10*6/uL (4.20-5.50); Red Cell Distribution Width 13.5 % (11.0-16.0); White Blood Count 5.4 X10*3/uL (4.8-10.8)
[2024-01-06 19:55] LABS: Alanine Aminotransferase 46 U/L (0-31); Albumin Level 4.4 g/dL (3.5-5.0); Alkaline Phosphatase 153 U/L (39-117); Anion Gap 14 (12-20); Aspartate Amino Transferase 31 U/L (5-31); Bilirubin Total 0.3 mg/dL (0.0-1.0); Blood Urea Nitrogen 13 mg/dL (9-16); Calcium 9.7 mg/dL (8.4-10.2); Carbon Dioxide 27 mmol/L (22-29); Chloride 100 mmol/L (96-108); Creatinine Clr Calc Pharmacy 103.3; Estimated Glomerular Filt Rate > 60; Glucose Random 108 mg/dL (60-115); Potassium 4.9 mmol/L (3.3-5.1); Sodium 136 mmol/L (135-145); Total Protein 8.8 g/dL (6.5-8.0)
--- NOTE | 2024-01-06 20:38 | PC.NURSE ---
Late entry; Hearing Aid Repair Technician called to bedside to obtain hx. PT having trouble articulating medical hx but is a&o x 3. VSS @ this time. Seizure pads in place. Labs sent. Awaiting ED provider.
--- NOTE | 2024-01-06 20:49 | MHC.EDTECH ---
This tech attempted to get vitals on Pt who refused at this time. RN aware
--- NOTE | 2024-01-06 21:02 | PC.NURSE ---
Spoke w/ daughter Hamida to provide update. Daughter wanted us to know that she has been in and out of psychosis her whole life and sometimes will not be cooperative with care. Per daughter, today's fall and seizure was not witnessed as pt insists on showering with the bathroom door shut and locked. Length of seizure is unknown. Daughter reports pt is compliant with her seizure medication. Call Hamida w/ any updates. [phone]
[2024-01-06 21:09] VITALS: PULSE 74; RESP 16; O2SAT 100
[2024-01-06] MEDS: LORazepam 2 MG/ML VIAL 1 MG IVPUSH (21:31)
--- NOTE | 2024-01-06 23:51 | ED_ITS ---
HPI - General Adult General Chief complaint: Seizure Stated complaint: SEIZURE W/ FALL,+ HEADSTRIKE,CONTUSION TO R EYE Time Seen by Provider: 01/06/24 21:09 History of Present Illness HPI narrative: The patient is a 58-year-old female with a history of a seizure disorder who is on multiple medications for her seizures. Apparently she had a seizure today in the bathroom and hit her head. She apparently has frequent seizures despite being on multiple antiepileptic medications. Additionally it is sometimes thoughts she has had nonepileptic seizures as well. The patient lives with her who apparently gives her her medications. According to the patient's daughter that patient is not always compliant with the medications that her lays out for her. The patient is currently denying any complaints. She has a large bruise to the right forehead above the right eye and a small laceration in the mid upper forehead. She denies any facial pain or headache. She denies any pain with moving her eyes. She denies any neck pain or pain with moving her head. She denies any pain in her extremities. Related Data Home Medications ?Medication ?Instructions ?Recorded ?Confirmed cenobamate 150 mg tablet (Xcopri) 150 mg PO DAILY 05/10/23 12/11/23 gabapentin 300 mg capsule 300 mg PO BID 05/10/23 12/11/23 clobazam 10 mg tablet 5 mg PO DAILY 05/11/23 12/11/23 haloperidol 5 mg tablet 5 mg PO BEDTIME 05/11/23 12/11/23 haloperidol 5 mg tablet 5 mg PO BID PRN PSYCHOTIC AGITATION 05/20/23 12/11/23 hydroxyzine HCl 25 mg tablet 25 mg PO Q6H PRN Anxiety 05/20/23 12/11/23 clobazam 20 mg tablet 10 mg PO BEDTIME 09/05/23 12/11/23 eslicarbazepine 600 mg tablet 600 mg PO BEDTIME 09/05/23 12/11/23 (Aptiom) pantoprazole 40 mg tablet,delayed 40 mg PO DAILY 09/05/23 12/11/23 release (Protonix) phenobarbital 64.8 mg tablet 64.8 mg PO BID 09/05/23 12/11/23 Previous Rx's ?Medication ?Instructions ?Recorded magnesium oxide 400 mg (241.3 mg 400 mg PO QAM 90 days #90 tabs 08/01/23 magnesium) tablet dicyclomine 10 mg capsule 10 mg PO QID #360 caps 08/02/23 Allergies Allergy/AdvReac Type Severity Reaction Status Date / Time Iodinated Contrast Media Allergy Intermediate RED ALL Verified 01/06/24 19:16 [IV Dye, Iodine Containing] OVER NAUSEA AND LOST RESPIRATIONS Penicillins [PENICILLINS] Allergy Intermediate Unknown Verified 01/06/24 19:16 phenytoin [From Dilantin] Allergy Intermediate gum Verified 01/06/24 19:16 swelling lamotrigine [From Lamictal] Allergy Unknown unknown Verified 01/06/24 19:16 Review of Systems 2 Review of Systems: Yes all other systems are reviewed and are negative [facility] Past Medical History Medical History Psychosis Recurrent seizures Hypomagnesemia Burn injury Delusional disorder Epilepsy Urinary incontinence IBS (irritable bowel syndrome) Overactive bladder Class 1 obesity due to excess calories with body mass index (BMI) of 30.0 to 30.9 in adult Mild recurrent major depression Gait instability Polyarthralgia Depression Urge urinary incontinence Screening for cervical cancer Pre-op examination Pre-op evaluation Unsteady gait Expressive aphasia Hyponatremia Encephalomalacia GERD (gastroesophageal reflux disease) Hypotension Seizures Surgical History History of tumor H/O prior ablation treatment History of skin graft History of tubal ligation History of section Surgical history unknown Family History Family History Father Heart problem Mother Diabetes Low blood pressure Family/Other Substance use disorder Mental health disorder Social History Social History Household Members: Family Household Members Other:: with daughter Housing: Unknown / Unable to assess Do you presently have visiting nurse or other home services: No Unable to assess alcohol history related to: Unknown Alcohol intake: never Comment: 1:1 sitter Patient Tobacco Use Status: Never used Tobacco Smoked in Last 30 Days: No e-Cigarette/Vaping Use: Never Used Second Hand Smoke Exposure: No Use of substances other than those prescribed or required for medical reasons: No Advance Directives: Yes Advance Directives on File: Yes Advance Directives Date on File: 01/09/23 Patient : No service: No Current occupational status: disabled Current occupation: rt handed Sexual orientation: Straight/Heterosexual Gender identity: Female Cognitive needs: Yes (walker) Hearing needs: No Vision needs: Yes (glasses) Physical Exam ED Vital Signs: Vital Signs - 24 hr 01/06/24 18:58 01/06/24 21:09 01/07/24 00:25 Temperature 99.0 F 98.0 F Pulse Rate 81 74 74 Respiratory Rate 15 16 20 Blood Pressure 136/70 111/67 Pulse Oximetry 100 100 Oxygen Delivery Method Room Air Room Air BMI result Body Mass Index 32.3 Const Other: The patient is awake and alert. She has some obvious soft tissue swelling to the right forehead at the lateral aspect of the right eyebrow. She has a small laceration in the upper mid forehead about 1 cm in length. The laceration is vertically oriented. HENMT Other: There is a small laceration vertically oriented to the mid upper forehead about 1 cm in length. There is a large area of bruising and soft tissue swelling at the right orbital rim by the lateral end of the right eyebrow. No raccoon eyes. No diaz sign. Cheeks do not seem injured. The nose does not seem injured. The jaw does not seem injured. Eyes Other: Pupils are round equal, conjunctivae are clear, extraocular movements are intact. No pain with eye movements, specifically no pain with upward gaze. Neck Other: No posterior midline C-spine tenderness. No pain with range of motion of the neck. She moves her neck very easily. C-spine is clinically clear. Resp Effort & Inspection: normal respiratory effort Auscultation: clear to auscultation bilaterally Cardio Rate: regular rate Rhythm: regular rhythm Heart sounds: S1 normal heart sound present and S2 normal heart sound present GI Other: Abdomen is soft and nontender Skin Other: The skin is remarkable for a small vertically oriented laceration in the mid upper forehead about 1 cm in length. There is also an area of significant bruising and soft tissue swelling to the right lateral forehead in the periorbital area. Neuro Other: The patient is awake and alert. Face is symmetrical. Cranial nerves are intact. Her speech is without aphasia or dysarthria. She moves her extremities symmetrically. No focal neurological deficit. Extrem Other: No injuries to the extremities. Medications Administered Discontinued Medications Generic Name Dose Route Start Last Admin Trade Name Surekha PRN Reason Stop Dose Admin Lorazepam 1 mg 01/06/24 21:24 01/06/24 21:31 Lorazepam 2 Mg/Ml Vial IVPUSH 01/06/24 21:25 1 mg ONCE ONE Administration Procedures Laceration Laceration 1: Site: face Size (cm): 1 Description: linear and flap Depth: simple, single layer Pre-repair: wound explored and irrigated extensively Skin layer closed with: other (Glue adhesive) Medical Decision Making Medical Decision Making [facility] Narrative: The patient is a 58-year-old woman who has a history of a complex seizure disorder. She also has a history of possible dementia or a delusional disorder. She is on multiple antiepileptic medications including clobazam, eslicarbazepine, gabapentin, Xcopri, and phenobarbital. She seems to have had a seizure at home today. She has had injuries related to the seizure. Head CT shows no intracranial injury. Her C-spine is clinically clear. No injuries to other parts of her body. The patient is small laceration in the middle of the upper forehead was cleaned and closed with tissue adhesive glue. She tolerated the procedure well. I spoke to the patient's sister who admits that the patient may be somewhat noncompliant with her medications. The patient received a dose of IV lorazepam here but had no ongoing seizure activity. Ultimately I felt the best thing would be to discharge the patient so that she can take her regular evening medications at home since most of her antiepileptic medications are non formulary at this hospital. The sister ultimately came to the hospital and the patient was discharged. Lab Data 01/06/24 19:30 01/06/24 19:30 Labs: Lab Results 01/06/24 01/06/24 Range/Units 19:30 21:50 WBC 5.4 (4.8-10.8) X10*3/uL RBC 4.23 (4.20-5.50) X10*6/uL Hgb 13.0 (12.0-16.0) g/dl Hct 39.1 (37.0-47.0) % MCV 92.4 (80.0-98.0) fL MCH 30.7 (27.0-33.0) pg MCHC 33.2 (31.0-35.0) g/dl RDW 13.5 (11.0-16.0) % Plt Count 204 (160-400) X10*3/uL MPV 10.1 (9.4-12.3) fL Immature Gran % (Auto) 0.2 (0.0-0.4) % Neut % (Auto) 73.6 H (45-73) % Lymph % (Auto) 14.3 L (20-40) % [place] % (Auto) 10.8 (2-11) % Eos % (Auto) 0.4 (0-4) % Baso % (Auto) 0.7 (0-2) % Lymph # (Auto) 0.8 L (1.2-4.9) X10*3/uL [place] # (Auto) 0.6 (0.1-1.2) X10*3/uL Eos # (Auto) 0.0 (0.0-0.4) X10*3/uL Baso # (Auto) 0.0 (0.0-0.2) X10*3/uL Abs Immat Gran (auto) 0.01 (0.00-0.03) X10*3/uL Absolute Neuts (auto) 4.0 (2.0-8.3) x10*3/uL Absolute Nucleated RBC 0.000 (0.0-0.012) X10*3/uL Nucleated RBC % (auto) 0.0 (0.0-0.2) /100WBC Sodium 136 (135-145) mmol/L Potassium 4.9 (3.3-5.1) mmol/L Chloride 100 (96-108) mmol/L Carbon Dioxide 27 (22-29) mmol/L Anion Gap 14 (12-20) BUN 13 (9-16) mg/dL Creatinine 0.69 (0.5-1.4) mg/dL Estim Creat Clear Calc 103.3 Estimated GFR > 60 Random Glucose 108 (60-115) mg/dL Calcium 9.7 (8.4-10.2) mg/dL Total Bilirubin 0.3 (0.0-1.0) mg/dL AST 31 (5-31) U/L ALT 46 H (0-31) U/L Alkaline Phosphatase 153 H (39-117) U/L Total Protein 8.8 H (6.5-8.0) g/dL Albumin 4.4 (3.5-5.0) g/dL Phenobarbital 25.1 (10.0-40.0) mcg/mL Discharge Plan Discharge Clinical Impression: Seizure, Forehead laceration, Contusion of periorbital region, right Patient Disposition: Home, Self-Care Additional Instructions: A head CT done today's not show any internal injuries. The small forehead laceration was closed with glue. The glue will fall off in several days. Please continue all of your regular medications. Please make sure you always take all of your regular medications. Please follow up with your regular doctor and with your neurologist. Return to the emergency room if worse. Prescriptions: No Action magnesium oxide 400 mg (241.3 mg magnesium) tablet 400 mg PO QAM 90 Days Qty: 90 1RF dicyclomine 10 mg capsule 10 mg PO QID Qty: 360 4RF gabapentin 300 mg capsule 300 mg PO BID Xcopri 150 mg tablet 150 mg PO DAILY haloperidol 5 mg tablet 5 mg PO BEDTIME clobazam 10 mg Tablet 5 mg PO DAILY clobazam 20 mg tablet 10 mg PO BEDTIME haloperidol 5 mg Tablet 5 mg PO BID PRN (Reason: PSYCHOTIC AGITATION) hydroxyzine HCl 25 mg Tablet 25 mg PO Q6H PRN (Reason: Anxiety) Aptiom 600 mg tablet 600 mg PO BEDTIME phenobarbital 64.8 mg tablet 64.8 mg PO BID pantoprazole [Protonix] 40 mg tablet,delayed release (DR/EC) 40 mg PO DAILY Referrals: Daniel Hernandez MD [Physician] - (seizure) Lara Mercado MD [Primary Care Provider] - (seizure) Interventions: ED Discharge Assessment Last Done: 01/07/24 00:25 Discharge Date/Time: 01/07/24 00:38 Print Language: Italian
[2024-01-07 00:25] VITALS: BP 111/67; PULSE 74; RESP 20; TEMP 36.7
== END 2024-01-07 00:38 | disposition home or self-care (01) ==
PROVIDERS: Emergency Provider Emergency Medicine; PCP Internal Medicine
DX: S01.81XA Laceration without foreign body of other part of head, initial encounter (principal); S00.11XA Contusion of right eyelid and periocular area, initial encounter; G40.802 Other epilepsy, not intractable, without status epilepticus; Z79.899 Other long term (current) drug therapy; X58.XXXA Exposure to other specified factors, initial encounter; Y93.9 Activity, unspecified; Y92.9 Unspecified place or not applicable; Y99.9 Unspecified external cause status
CPT/HCPCS: 12011; 36415; 70450; 80053; 80184; 85025; 96374; 99284; J2060

== ENCOUNTER 2024-02-07 08:52 | Emergency (ER) | payer MEDICARE, MEDICAID, SELFPAY ==
[2024-02-07 09:01] VITALS: BP 122/75; BP 140/81; PULSE 81; PULSE 83; RESP 18; TEMP 36.3; O2SAT 100; O2SAT 97; BMI 28.2
--- NOTE | 2024-02-07 09:45 | ECG_ITS ---
Test Reason : AMS Blood Pressure : / mmHG Vent. Rate : 072 BPM Atrial Rate : 072 BPM P-R Int : 160 ms QRS Dur : 076 ms QT Int : 368 ms P-R-T Axes : -17 027 024 degrees QTc Int : 402 ms Normal sinus rhythm Normal ECG When compared with ECG of 29-SEP-2023 11:01, Nonspecific T wave abnormality now evident in Anterior leads Referred By: Shun Saxena Electronically Signed By:HUGO RODRIGUEZ MD
[2024-02-07] MEDS: HaloperidoL 5 MG TABLET PO (10:14)
[2024-02-07] MEDS: LORazepam 1 MG TABLET 2 MG PO (10:14)
[2024-02-07 10:33] VITALS: BP 129/79; PULSE 81; RESP 17; O2SAT 100
[2024-02-07 11:12] LABS: Alanine Aminotransferase 35 U/L (0-31); Albumin Level 4.1 g/dL (3.5-5.0); Alkaline Phosphatase 139 U/L (39-117); Anion Gap 14 (12-20); Aspartate Amino Transferase 26 U/L (5-31); Bilirubin Direct 0.1 mg/dL (0.0-0.5); Bilirubin Total 0.4 mg/dL (0.0-1.0); Blood Urea Nitrogen 7 mg/dL (9-16); Calcium 9.8 mg/dL (8.4-10.2); Carbon Dioxide 22 mmol/L (22-29); Chloride 93 mmol/L (96-108); Creatinine Clr Calc Pharmacy 106.2; Estimated Glomerular Filt Rate > 60; Ethanol < 10 mg/dL; Glucose Random 86 mg/dL (60-115); Magnesium 1.9 mg/dL (1.6-2.6); Potassium 4.3 mmol/L (3.3-5.1); Sodium 125 mmol/L (135-145); Total Protein 7.9 g/dL (6.5-8.0)
[2024-02-07 11:24] LABS: MANUAL DIFF FLAG NO
[2024-02-07 11:33] LABS: Basophils Absolute Auto 0.1 X10*3/uL (0.0-0.2); Basophils Percent Auto 1.1 % (0-2); Eosinophils Percent Auto 0.2 % (0-4); Hematocrit 34.9 % (37.0-47.0); Hemoglobin 12.1 g/dl (12.0-16.0); Imm Gran Abs Auto 0.01 X10*3/uL (0.00-0.03); Imm Gran Pct Auto 0.2 % (0.0-0.4); Mean Corpuscular HGB Conc 34.7 g/dl (31.0-35.0); Mean Corpuscular Hemoglobin 30.7 pg (27.0-33.0); Mean Corpuscular Volume 88.6 fL (80.0-98.0); Mean Platelet Volume 9.2 fL (9.4-12.3); Monocytes Absolute Auto 0.4 X10*3/uL (0.1-1.2); Monocytes Percent Auto 9.6 % (2-11); Neutrophils Percent Auto 66.9 % (45-73); Platelet Count 216 X10*3/uL (160-400); Red Blood Count 3.94 X10*6/uL (4.20-5.50); Red Cell Distribution Width 13.2 % (11.0-16.0); White Blood Count 4.5 X10*3/uL (4.8-10.8)
[2024-02-07 12:06] VITALS: BP 133/86; PULSE 86; RESP 16; O2SAT 99
--- NOTE | 2024-02-07 12:46 | ED.GENADULT ---
HPI - General Adult General Chief complaint: Altered Mental Status Stated complaint: SLIGHTLY CONFUSED PER EMS Time Seen by Provider: 02/07/24 09:10 History of Present Illness HPI narrative: The patient is a 58-year-old female with a complex psychiatric history and a complex seizure disorder. She is on multiple esoteric antiepileptics including clobazam, esclicarbazine, and Xcopri. She is also on phenobarbital and gabapentin. Additionally she takes haloperidol twice a day. The patient lives with her . She also has a [employer] and has some covered 24 hours a day. Visiting nurses have been assisting the family in managing her medications. There was recently a change in the primary visiting nurse however and this seems to have resulted in some medication compliance issues. According to the patient's daughter the patient may not have been taking some of her normal medications recently, particularly Haldol and Xcopri. Yesterday and this morning the patient's behavior was abnormal. She was hitting herself in the head and seemed confused. It is not clear whether she might have had a seizure during the night last night. No definite seizure activity was witnessed. In any event the daughter was concerned that the patient's mental status seemed different than her baseline and brought her to the hospital for evaluation today. There is no report of any fever, sweats, chills. No report of cough or shortness of breath, no report of abdominal pain, nausea, vomiting. Related Data Home Medications ?Medication ?Instructions ?Recorded ?Confirmed cenobamate 150 mg tablet (Xcopri) 150 mg PO DAILY 05/10/23 12/11/23 gabapentin 300 mg capsule 300 mg PO BID 05/10/23 12/11/23 clobazam 10 mg tablet 5 mg PO DAILY 05/11/23 12/11/23 haloperidol 5 mg tablet 5 mg PO BEDTIME 05/11/23 12/11/23 haloperidol 5 mg tablet 5 mg PO BID PRN PSYCHOTIC AGITATION 05/20/23 12/11/23 hydroxyzine HCl 25 mg tablet 25 mg PO Q6H PRN Anxiety 05/20/23 12/11/23 clobazam 20 mg tablet 10 mg PO BEDTIME 09/05/23 12/11/23 eslicarbazepine 600 mg tablet 600 mg PO BEDTIME 09/05/23 12/11/23 (Aptiom) pantoprazole 40 mg tablet,delayed 40 mg PO DAILY 09/05/23 12/11/23 release (Protonix) phenobarbital 64.8 mg tablet 64.8 mg PO BID 09/05/23 12/11/23 Previous Rx's ?Medication ?Instructions ?Recorded magnesium oxide 400 mg (241.3 mg 400 mg PO QAM 90 days #90 tabs 08/01/23 magnesium) tablet dicyclomine 10 mg capsule 10 mg PO QID #360 caps 08/02/23 Allergies Allergy/AdvReac Type Severity Reaction Status Date / Time Iodinated Contrast Media Allergy Intermediate RED ALL Verified 02/07/24 09:07 [IV Dye, Iodine Containing] OVER NAUSEA AND LOST RESPIRATIONS Penicillins [PENICILLINS] Allergy Intermediate Unknown Verified 02/07/24 09:07 phenytoin [From Dilantin] Allergy Intermediate gum Verified 02/07/24 09:07 swelling lamotrigine [From Lamictal] Allergy Unknown unknown Verified 02/07/24 09:07 Review of Systems Review of Systems: Yes all other systems are reviewed and are negative [facility] Past Medical History Medical History Psychosis Recurrent seizures Hypomagnesemia Burn injury Delusional disorder Epilepsy Urinary incontinence IBS (irritable bowel syndrome) Overactive bladder Class 1 obesity due to excess calories with body mass index (BMI) of 30.0 to 30.9 in adult Mild recurrent major depression Gait instability Polyarthralgia Depression Urge urinary incontinence Screening for cervical cancer Pre-op examination Pre-op evaluation Unsteady gait Expressive aphasia Hyponatremia Encephalomalacia GERD (gastroesophageal reflux disease) Hypotension Seizures Surgical History History of tumor H/O prior ablation treatment History of skin graft History of tubal ligation History of section Surgical history unknown Family History Family History Father Heart problem Mother Diabetes Low blood pressure Family/Other Substance use disorder Mental health disorder Social History Social History Household Members: Family Household Members Other:: with daughter Housing: Unknown / Unable to assess Do you presently have visiting nurse or other home services: No Unable to assess alcohol history related to: Unknown Alcohol intake: never Comment: 1:1 sitter Patient Tobacco Use Status: Never used Tobacco e-Cigarette/Vaping Use: Never Used Second Hand Smoke Exposure: No Advance Directives: Yes Advance Directives on File: Yes Advance Directives Date on File: 01/09/23 service: No Current occupational status: disabled Current occupation: rt handed Sexual orientation: Straight/Heterosexual Gender identity: Female Cognitive needs: Yes (walker) Hearing needs: No Vision needs: Yes (glasses) Physical Exam ED Vital Signs: Vital Signs - 24 hr 02/07/24 09:01 02/07/24 10:33 02/07/24 12:06 Temperature 97.4 F Pulse Rate 81 81 86 Respiratory Rate 18 17 16 Blood Pressure 140/81 H 129/79 133/86 Pulse Oximetry 100 100 99 Oxygen Delivery Method Room Air Room Air Room Air BMI result Body Mass Index 28.2 Const Other: The patient is awake and alert. She has a very withdrawn demeanor and was not very communicative. Did not seem in acute distress however. HENMT Other: Face is symmetrical. Mucous membranes moist. Eyes Other: Pupils are round equal, conjunctivae clear Neck Other: No JVD Resp Effort & Inspection: normal respiratory effort Auscultation: clear to auscultation bilaterally Cardio Rate: regular rate Rhythm: regular rhythm Heart sounds: S1 normal heart sound present and S2 normal heart sound present GI Other: Abdomen is soft and nontender Skin Other: Skin is pale and dry Neuro Other: Patient is awake and alert. She has an unusual demeanor. She is very reserved. However she did not seem to have any focal neurological deficits. Her eye movements are intact. Her face is symmetrical. Her speech was without dysarthria. She moves her extremities symmetrically. Extrem Other: No calf swelling or tenderness, no asymmetry Medications Administered Discontinued Medications Generic Name Dose Route Start Last Admin Trade Name Freq PRN Reason Stop Dose Admin Haloperidol 5 mg 02/07/24 09:45 02/07/24 10:14 Haloperidol 5 Mg Tablet PO 02/07/24 09:46 5 mg ONCE ONE Administration Lorazepam 2 mg 02/07/24 09:45 02/07/24 10:14 Lorazepam 1 Mg Tablet PO 02/07/24 09:46 2 mg ONCE ONE Administration Medical Decision Making Medical Decision Making [facility] Narrative: The patient is a complex seizure patient and also has significant psychiatric issues with a complex medical regimen. She takes clot exam 5 mg in the morning and 2.5 mg at bedtime. She takes esclicarbazine 600 mg at bedtime. She takes phenobarbital 129 mg at bedtime. She takes Xcopri 200 mg daily. She takes haloperidol 5 mg b.i.d.. She takes gabapentin 300 mg b.i.d. The patient has a [employer] at home and lives with her . Visiting nurses are also involved. It seems that there has been a lapse in the patient's medication. This is in part because the patient may not be taking medication for a new visiting nurse who replaced a person she was more familiar with. Additionally there may have been a problem filling her medication dispenser. Specifically the daughter believes that the patient has not had Haldol or Xcopri recently. Here in the emergency room the patient was given 5 mg of oral haloperidol and 2 mg of oral lorazepam. She was observed. The daughter felt the patient was much calmer and seemed to be behaving much more like her usual self. The daughter in the meantime has managed to obtain new prescriptions for haloperidol and Xcopri. At this point the daughter feels confident that she has all of the patient's regular medications. The daughter also feels that she will be able to make sure that the patient takes all of her medications appropriately. The daughter is therefore comfortable bringing the patient home. Patient's sodium is 125. The patient's daughter says that the patient's sodium has trended low in the past as well possibly because of increased water intake. The daughter was encouraged to increase salt in the patient's food. Lab Data 02/07/24 11:11 02/07/24 10:31 Labs: Lab Results 02/07/24 02/07/24 Range/Units 10:31 11:11 WBC 4.5 L (4.8-10.8) X10*3/uL RBC 3.94 L (4.20-5.50) X10*6/uL Hgb 12.1 (12.0-16.0) g/dl Hct 34.9 L (37.0-47.0) % MCV 88.6 (80.0-98.0) fL MCH 30.7 (27.0-33.0) pg MCHC 34.7 (31.0-35.0) g/dl RDW 13.2 (11.0-16.0) % Plt Count 216 (160-400) X10*3/uL MPV 9.2 L (9.4-12.3) fL Immature Gran % (Auto) 0.2 (0.0-0.4) % Neut % (Auto) 66.9 (45-73) % Lymph % (Auto) 22.0 (20-40) % [place] % (Auto) 9.6 (2-11) % Eos % (Auto) 0.2 (0-4) % Baso % (Auto) 1.1 (0-2) % Lymph # (Auto) 1.0 L (1.2-4.9) X10*3/uL [place] # (Auto) 0.4 (0.1-1.2) X10*3/uL Eos # (Auto) 0.0 (0.0-0.4) X10*3/uL Baso # (Auto) 0.1 (0.0-0.2) X10*3/uL Abs Immat Gran (auto) 0.01 (0.00-0.03) X10*3/uL Absolute Neuts (auto) 3.0 (2.0-8.3) x10*3/uL Absolute Nucleated RBC 0.000 (0.0-0.012) X10*3/uL Nucleated RBC % (auto) 0.0 (0.0-0.2) /100WBC Sodium 125 L (135-145) mmol/L Potassium 4.3 (3.3-5.1) mmol/L Chloride 93 L (96-108) mmol/L Carbon Dioxide 22 (22-29) mmol/L Anion Gap 14 (12-20) BUN 7 L (9-16) mg/dL Creatinine 0.65 (0.5-1.4) mg/dL Estim Creat Clear Calc 106.2 Estimated GFR > 60 Random Glucose 86 (60-115) mg/dL Calcium 9.8 (8.4-10.2) mg/dL Magnesium 1.9 (1.6-2.6) mg/dL Total Bilirubin 0.4 (0.0-1.0) mg/dL Direct Bilirubin 0.1 (0.0-0.5) mg/dL AST 26 (5-31) U/L ALT 35 H (0-31) U/L Alkaline Phosphatase 139 H (39-117) U/L Total Protein 7.9 (6.5-8.0) g/dL Albumin 4.1 (3.5-5.0) g/dL Ethyl Alcohol < 10 mg/dL Independent Interpretation I performed an independent interpretation of an: EKG Interpretation: EKG at 09:57 shows normal sinus rhythm at 72 beats per minute. It is an unremarkable EKG. Discharge Plan Discharge Clinical Impression: Altered behavior, Hyponatremia, Seizure disorder Patient Disposition: Home, Self-Care Additional Instructions: My hope is that if she gets back on her regular regimen of medications her behavior will returned to her usual behavior. Please feel free to add salt to her food. Keep your follow-up appointments as scheduled. Return to the emergency room if significantly worse. Prescriptions: No Action magnesium oxide 400 mg (241.3 mg magnesium) tablet 400 mg PO QAM 90 Days Qty: 90 1RF dicyclomine 10 mg capsule 10 mg PO QID Qty: 360 4RF gabapentin 300 mg capsule 300 mg PO BID Xcopri 150 mg tablet 150 mg PO DAILY haloperidol 5 mg tablet 5 mg PO BEDTIME clobazam 10 mg Tablet 5 mg PO DAILY clobazam 20 mg tablet 10 mg PO BEDTIME haloperidol 5 mg Tablet 5 mg PO BID PRN (Reason: PSYCHOTIC AGITATION) hydroxyzine HCl 25 mg Tablet 25 mg PO Q6H PRN (Reason: Anxiety) Aptiom 600 mg tablet 600 mg PO BEDTIME phenobarbital 64.8 mg tablet 64.8 mg PO BID pantoprazole [Protonix] 40 mg tablet,delayed release (DR/EC) 40 mg PO DAILY Referrals: Caity Barnes MD [Physician] - (Complex medication problems, behavioral problems, mild hyponatremia) Lara Mercado MD [Primary Care Provider] - (Complex medication problems) Print Language: Macanese
--- NOTE | 2024-02-07 13:09 | PC.NURSE ---
patient being discharged home with daughter, patient refused discharge vitals.
== END 2024-02-07 13:10 | disposition home or self-care (01) ==
PROVIDERS: Emergency Provider Emergency Medicine; PCP Internal Medicine
DX: R41.82 Altered mental status, unspecified (principal); E87.1 Hypo-osmolality and hyponatremia; G40.802 Other epilepsy, not intractable, without status epilepticus; Z79.899 Other long term (current) drug therapy
CPT/HCPCS: 36415; 80048; 80076; 80307; 83735; 85025; 93005; 99283; 99284

== ENCOUNTER → 2024-02-07 09:45 | Outpatient (BNV) | payer MEDICARE, MEDICAID, SELFPAY | PROVIDERS: Emergency Provider Emergency Medicine; PCP Internal Medicine; Visit Provider Internal Medicine Cardiovascular Disease | DX: R41.82 Altered mental status, unspecified (principal) | CPT/HCPCS: 93010 ==

== ENCOUNTER 2024-03-06 14:11 | Outpatient (AMB) | payer MEDICARE, MEDICAID, SELFPAY ==
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
[2024-03-06 14:16] VITALS: BP 112/70; BMI 27.7
== END 2024-03-06 14:40 | disposition home or self-care (01) ==
PROVIDERS: PCP Internal Medicine; Visit Provider Internal Medicine
DX: Z00.00 Encounter for general adult medical examination without abnormal findings (principal); R56.9 Unspecified convulsions; F33.0 Major depressive disorder, recurrent, mild
CPT/HCPCS: 99396

== ENCOUNTER 2024-03-15 17:11 | Emergency (ER) | payer MEDICARE, MEDICAID, SELFPAY ==
--- NOTE | ~2024-03-15 | CT_ITS ---
EXAMINATION: CT HEAD WITHOUT CONTRAST CLINICAL INFORMATION: Seizure, loss of consciousness COMPARISON: 01/06/2024 TECHNIQUE: Contiguous axial imaging was performed from the skull base to vertex without intravenous administration of contrast. This CT examination was performed using dose optimization techniques as appropriate, variously including the following: *Automated exposure control *Adjustment of mA and/or kV according to patient size (this includes techniques or standardized protocols for targeted exams where dose is matched to indication/reason for exam; i.e. extremities or head) *Use of iterative reconstruction technique DLP: 857 mGy-cm FINDINGS: There is no evidence of acute intracranial hemorrhage or territorial infarction. No abnormal mass-effect or midline shift is seen. Vasquez to white matter differentiation is well preserved. No extra-axial fluid collections are identified. The ventricles are normal in size. Redemonstrated region of left parietal encephalomalacia with overlying craniotomy changes. No acute osseous findings. The mastoid air cells and visualized portions of the paranasal sinuses are well-aerated. CT/CT head/brain wo IV con IMPRESSION: No acute intracranial pathology. Redemonstrated region of left parietal encephalomalacia with overlying craniotomy changes.
--- NOTE | ~2024-03-15 | XR_ITS ---
EXAMINATION: XR CHEST CLINICAL INFORMATION: Weakness COMPARISON: None available. TECHNIQUE: Frontal view of the chest was obtained. FINDINGS: The lungs are well-expanded and clear. Heart size and pulmonary vascularity is normal. There is mild dextroscoliosis. There is a vagal stimulator extending from the left chest wall generator, similar to previous study XR/XR chest 1V IMPRESSION: No acute process seen. There is mild dextroscoliosis question positional versus spasm. No change in the left chest wall generator and electrode extending to the left neck
[2024-03-15 17:18] VITALS: BP 130/74; PULSE 80; O2SAT 98
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
[2024-03-15 17:22] VITALS: BP 117/71; PULSE 85; RESP 18; TEMP 36.1; O2SAT 94; BMI 26.8
--- NOTE | 2024-03-15 17:46 | ECG_ITS ---
Test Reason : WEAKNESS Blood Pressure : / mmHG Vent. Rate : 083 BPM Atrial Rate : 083 BPM P-R Int : 158 ms QRS Dur : 070 ms QT Int : 356 ms P-R-T Axes : 018 016 034 degrees QTc Int : 418 ms Normal sinus rhythm Normal ECG When compared with ECG of 07-FEB-2024 09:57, No significant change was found Referred By: Idalmis Sunshine Electronically Signed By:HUGO RODRIGUEZ MD
--- NOTE | 2024-03-15 17:47 | PC.NURSE ---
advertising coordinator at bedside. Presents to ED via EMS, coming from home reports feeling generally unwell and weak today. Has hx of seizures, had multiple today per pt. Reports right foot pain, 8/10, unknown why pts foot hurts, no obvious injury noted. Alert, slow to answer questions, breathing even and unlabored, skin warm and dry.
--- NOTE | 2024-03-15 17:49 | PC.NURSE ---
Pt HCP contacted, pt agreed to allow RN to talk to HCP. Daughter (HCP) reports pt missed her dose of Haldol today, unknown how many doses she missed (issue with pharmacy). Pt has hx of agitation and psychosis per daughter, was here couple of weeks ago for that. Baseline for pt to have multiple seizures a day, daughter reports pt takes meds and has vagus nerve stimulator that does not control seizures. Pt pressed her life alert button today due to not feeling well.
--- NOTE | 2024-03-15 17:54 | PC.NURSE ---
Pt refuses slip box changer into hospital clothes, reports she wants to stay in her clothing
[2024-03-15 17:57] VITALS: BP 104/69; PULSE 84; RESP 16; O2SAT 95
[2024-03-15 18:09] LABS: MANUAL DIFF FLAG NO
--- NOTE | 2024-03-15 18:14 | PC.NURSE ---
While attempting blood draw and IV placement (was explained to pt via medical support assistant). Pt allowed for one tube of blood to be filled and then grabbed IV and took it out, reported she would only allow for one tube
--- NOTE | 2024-03-15 18:15 | MHC.EDTECH ---
This pct attempted to draw labs on patient but the patient refused labs, RN Aware
[2024-03-15 18:36] LABS: Basophils Percent Auto 0.7 % (0-2); Eosinophils Percent Auto 0.4 % (0-4); Imm Gran Abs Auto 0.02 X10*3/uL (0.00-0.03); Imm Gran Pct Auto 0.4 % (0.0-0.4); Lymphocytes Percent Auto 17.4 % (20-40); Mean Corpuscular HGB Conc 36.1 g/dl (31.0-35.0); Mean Corpuscular Hemoglobin 31.7 pg (27.0-33.0); Mean Corpuscular Volume 87.8 fL (80.0-98.0); Mean Platelet Volume 9.2 fL (9.4-12.3); Monocytes Absolute Auto 0.6 X10*3/uL (0.1-1.2); Monocytes Percent Auto 9.7 % (2-11); Neutrophils Absolute Auto 4.1 x10*3/uL (2.0-8.3); Neutrophils Percent Auto 71.4 % (45-73); Platelet Count 223 X10*3/uL (160-400); Red Cell Distribution Width 13.4 % (11.0-16.0); White Blood Count 5.7 X10*3/uL (4.8-10.8)
[2024-03-15 19:17] LABS: Influenza A PCR NEGATIVE (Negative); Influenza B PCR NEGATIVE (Negative); Resp Syncy Virus RNA Qual PCR NEGATIVE (Negative); SARS COV2 PCR INHOUSE NEGATIVE (Negative)
[2024-03-15 20:00] VITALS: RESP 16
--- NOTE | 2024-03-15 20:21 | PC.NURSE ---
this rn assumed care of pt, pt a&ox4, respirations even and unlabored. no acute distress noted. pt to CT at this time.
--- NOTE | 2024-03-15 20:41 | PC.NURSE ---
pt refusing vital signs at this time, provider aware. plan of care continues.
[2024-03-15 21:12] LABS: Appearance Urine Cloudy; Color Urine Yellow; Glucose Urine UA Negative (Negative); Leukocyte Esterase Urine Negative (Negative); Nitrite Urine Negative (Negative); Specific Gravity - Urine 1.015 (1.005-1.025); Urine Blood Negative (Negative); Urine Ketones 80 mg/dL (Negative); Urine Protein Negative (Neg-Trace)
--- NOTE | 2024-03-15 21:32 | PC.NURSE ---
at this time pt allowed staff to draw labs, Idalmis DORANTES aware.
[2024-03-15 21:53] LABS: Troponin-I High Sensitivity 5.3 ng/L (<3.5-17.0)
[2024-03-15 21:54] LABS: Anion Gap 16 (12-20)
[2024-03-15 22:00] VITALS: BP 133/88; PULSE 83; RESP 16; TEMP 36.3; O2SAT 98
[2024-03-15 22:01] LABS: Alanine Aminotransferase 37 U/L (0-31); Albumin Level 4.3 g/dL (3.5-5.0); Alkaline Phosphatase 134 U/L (39-117); Aspartate Amino Transferase 25 U/L (5-31); Bilirubin Direct 0.2 mg/dL (0.0-0.5); Bilirubin Total 0.4 mg/dL (0.0-1.0); Blood Urea Nitrogen 8 mg/dL (9-16); Calcium 9.8 mg/dL (8.4-10.2); Carbon Dioxide 24 mmol/L (22-29); Chloride 95 mmol/L (96-108); Creatinine Clr Calc Pharmacy 118.2; Estimated Glomerular Filt Rate > 60; Ethanol < 10 mg/dL; Glucose Random 76 mg/dL (60-115); Lipase 29 U/L (8-78); Magnesium 1.8 mg/dL (1.6-2.6); Potassium 3.8 mmol/L (3.3-5.1); Sodium 131 mmol/L (135-145); Total Protein 7.7 g/dL (6.5-8.0)
[2024-03-15 23:44] VITALS: BP 0/0; PULSE 0; RESP 17; TEMP -17.7; TEMP 0; O2SAT 0
== END 2024-03-15 23:46 | disposition home or self-care (01) ==
PROVIDERS: Physician Assistant Medical; Emergency Provider Student in an Organized Health Care Education/Training Program; PCP Internal Medicine
DX: R53.1 Weakness (principal); G40.909 Epilepsy, unspecified, not intractable, without status epilepticus; Z03.818 Encounter for observation for suspected exposure to other biological agents ruled out
CPT/HCPCS: 0241U; 70450; 71045; 80048; 80076; 80307; 81003; 83690; 83735; 84484; 85025; 93005; 99284

== ENCOUNTER → 2024-03-15 17:46 | Outpatient (BNV) | payer MEDICARE, MEDICAID, SELFPAY | PROVIDERS: Emergency Provider Student in an Organized Health Care Education/Training Program; PCP Internal Medicine; Visit Provider Internal Medicine Cardiovascular Disease | DX: R53.1 Weakness (principal) | CPT/HCPCS: 93010 ==

== ENCOUNTER 2024-04-16 23:03 | Inpatient (IN) | payer MEDICARE, MEDICAID, SELFPAY ==
--- NOTE | ~2024-04-16 | XR_ITS ---
EXAMINATION: XR TIBIA AND FIBULA, RIGHT CLINICAL INFORMATION: r/o hx z COMPARISON: None available. TECHNIQUE: AP and lateral views of the right tibia and fibula were obtained. FINDINGS: There are comminuted fractures of the distal diaphysis involving the tibia and fibula. There is a questionable fracture involving the posterior malleolus. This could always be confirmed with CT if needed. The visualized knee joint appears unremarkable. XR/XR tibia fibula RT 2V IMPRESSION: 1. Comminuted fractures of the distal diaphysis of the tibia and fibula. 2. Questionable fracture involving the posterior malleolus.
--- NOTE | ~2024-04-16 | FL_ITS ---
EXAMINATION: XR FLUOROSCOPY WITH IMAGES CLINICAL INFORMATION: Right tib/fib IM nail. COMPARISON: Tib/fib 04/16/2024. TECHNIQUE: Fluoroscopy Supervised By: Dr. Tru Muñiz. Fluoroscopy Time: 1.5 minutes. Cumulative Dose: 5.89 mGy. DAP: 0.102 mGym2. Images: 14. FINDINGS: Intraoperative fluoroscopy and spot films were performed during a procedure in the OR right tib/fib IM nail. Imaging demonstrates an intramedullary michael in the tibia with 2 screws proximally and 2 screws distally. Please correlate with Dr. Muñiz's report for complete details. FL/FL guidance in OR IMPRESSION: Intraoperative fluoroscopy and spot films were obtained. Please see Dr. Muñiz's report for complete details.
--- NOTE | ~2024-04-16 | CT_ITS ---
EXAMINATION: NONCONTRAST HEAD CT NONCONTRAST CERVICAL SPINE CT INDICATION INFORMATION: Fall COMPARISON: 03/15/2024, 05/11/2023 TECHNIQUE: Separate noncontrast CT examinations of the head and cervical spine were performed. Coronal head CT images and coronal and sagittal cervical spine images were created at the technologist workstation. DLP: 960 mGy-cm DOSE LOWERING TECHNIQUES: This CT examination was performed using dose optimization techniques as appropriate, variously including the following: - Automated exposure control - Adjustment of mA and/or kV according to patient size (this includes techniques or standardized protocols for targeted exams were dose is matched to indication/reason for exam; i.e. extremities or head) - Use of iterative reconstruction technique FINDINGS: Head: There is no evidence of acute intracranial hemorrhage or territorial infarction. No abnormal mass-effect or midline shift is seen. Vasquez to white matter differentiation is well preserved. No extra-axial fluid collections are identified. The ventricles are normal in size. Redemonstrated region of left parietal encephalomalacia with overlying craniotomy changes. There is mild periventricular white matter hypoattenuation consistent with chronic small vessel ischemic disease. No acute osseous findings. Slight mucosal thickening of the right maxillary sinus. The mastoid air cells are well-aerated. Cervical spine: There is anatomic alignment of the vertebral bodies and posterior elements. Vertebral body heights are maintained. There is chronic endplate irregularity at the lower cervical spine with mild associated disc space narrowing, slightly progressive since 05/11/2023. No evidence of acute fracture. No prevertebral soft tissue swelling. Visualized portions of the lung apices are unremarkable. The thyroid gland is unremarkable. CT/CT cervical spine wo IV con IMPRESSION: No acute findings identified in the head or cervical spine. Chronic changes as noted above.
[2024-04-16 23:09] VITALS: BP 147/74; PULSE 92; PULSE 94; RESP 16; TEMP 37.1; O2SAT 95; O2SAT 97; BMI 31.5
--- NOTE | 2024-04-16 23:19 | ECG_ITS ---
Test Reason : FALL Blood Pressure : / mmHG Vent. Rate : 093 BPM Atrial Rate : 093 BPM P-R Int : 144 ms QRS Dur : 070 ms QT Int : 322 ms P-R-T Axes : 069 044 056 degrees QTc Int : 400 ms Normal sinus rhythm Normal ECG When compared with ECG of 15-MAR-2024 18:08, No significant change was found Referred By: Tiffanie Barber Electronically Signed By:JONEL QUINTEROS
[2024-04-16 23:29] VITALS: BP 167/80; PULSE 94; RESP 20; TEMP 36.9; O2SAT 98
--- NOTE | 2024-04-16 23:55 | ED_ITS ---
HPI - General Adult General Chief complaint: Fall Stated complaint: UNWITN FALL, DEFORMITY TO R LOWER LEG Time Seen by Provider: 04/16/24 23:12 Source: patient and EMS Mode of arrival: EMS Limitations: no limitations History of Present Illness ED Provider: Dr. Tiffanie Barber HPI narrative: Patient comes to the emergency room complaining of a seizure, fall, and right lower extremity pain. According to the patient, she has been having seizures over the last month, patient takes phenobarbital as her home medication. Patient states that a few days ago she had a seizure and a fall, has a laceration that is healing above the left eyebrow and ecchymosis around the eyebrow area on the left. According to EMS, the patient was at home, they heard her fall, went to sister immediately, noticed a deformity, called EMS. Related Data Home Medications ?Medication ?Instructions ?Recorded ?Confirmed cenobamate 150 mg tablet (Xcopri) 150 mg PO DAILY 05/10/23 03/06/24 gabapentin 300 mg capsule 300 mg PO BID 05/10/23 03/06/24 clobazam 10 mg tablet 5 mg PO DAILY 05/11/23 03/06/24 haloperidol 5 mg tablet 5 mg PO BEDTIME 05/11/23 03/06/24 haloperidol 5 mg tablet 5 mg PO BID PRN PSYCHOTIC AGITATION 05/20/23 03/06/24 hydroxyzine HCl 25 mg tablet 25 mg PO Q6H PRN Anxiety 05/20/23 03/06/24 clobazam 20 mg tablet 10 mg PO BEDTIME 09/05/23 03/06/24 eslicarbazepine 600 mg tablet 600 mg PO BEDTIME 09/05/23 03/06/24 (Aptiom) pantoprazole 40 mg tablet,delayed 40 mg PO DAILY 09/05/23 03/06/24 release (Protonix) phenobarbital 64.8 mg tablet 64.8 mg PO BID 09/05/23 03/06/24 Previous Rx's ?Medication ?Instructions ?Recorded magnesium oxide 400 mg (241.3 mg 400 mg PO QAM 90 days #90 tabs 08/01/23 magnesium) tablet dicyclomine 10 mg capsule 10 mg PO QID #360 caps 08/02/23 Allergies Allergy/AdvReac Type Severity Reaction Status Date / Time Iodinated Contrast Media Allergy Intermediate RED ALL Verified 04/16/24 23:28 [IV Dye, Iodine Containing] OVER NAUSEA AND LOST RESPIRATIONS Penicillins [PENICILLINS] Allergy Intermediate Unknown Verified 04/16/24 23:28 phenytoin [From Dilantin] Allergy Intermediate gum Verified 04/16/24 23:28 swelling lamotrigine [From Lamictal] Allergy Unknown unknown Verified 04/16/24 23:28 Review of Systems 2 Review of Systems: Constitutional : No Weight loss, No Fever, No Chills, No Night Sweats, No Fatigue, No Malaise ENT/Mouth : No Hearing loss, No Ear Pain, No Nasal Congestion, No Sinus Pain, No Hoarseness, No sore throat, No Rhinorrhea, No Swallowing Difficulty Eyes: No Eye Pain, No Swelling, No Redness, No Foreign Body, No Discharge, No Vision Changes Cardiovascular : No Chest Pain, No SOB, No Dyspnea on Exertion, No Orthopnea, No Edema, No Palpitations Respiratory : No Cough, No Sputum, No Wheezing, No Smoke Exposure, No Dyspnea Gastrointestinal : No Nausea, No Vomiting, No Diarrhea, No Constipation, No abdominal Pain, No Hematochezia, No Melena Genitourinary : no irregular bleeding, No Dysuria, No Urinary Frequency, No Hematuria, No Urinary Incontinence, No Urgency, No Flank Pain, No Urinary Flow Changes, No Hesitancy Musculoskeletal : Complaining of pain in the right lower extremity Skin : Complaining of healing lacerations from previous falls and ecchymosis Neuro : No Weakness, No Numbness, No Paresthesias, No Loss of Consciousness, No Dizziness, No Headache Psych : No Anxiety/Panic, No Depression, No SI/HI/AH/VH, No Social Issues, Heme/Lymph: No Bruising, No Bleeding,No Lymphadenopathy Endocrine : No Polyuria, No Polydipsia, No Temperature Intolerance PMFSH Past Medical History Medical History Epilepsy Fracture of T12 vertebra Psychosis Recurrent seizures Hypomagnesemia Burn injury Delusional disorder Epilepsy Urinary incontinence IBS (irritable bowel syndrome) Overactive bladder Class 1 obesity due to excess calories with body mass index (BMI) of 30.0 to 30.9 in adult Mild recurrent major depression Gait instability Polyarthralgia Depression Urge urinary incontinence Screening for cervical cancer Pre-op examination Pre-op evaluation Unsteady gait Expressive aphasia Hyponatremia Encephalomalacia GERD (gastroesophageal reflux disease) Hypotension Seizures Surgical History History of tumor H/O prior ablation treatment History of skin graft History of tubal ligation Surgical history unknown Family History Family History Father Heart problem Mother Diabetes Low blood pressure Family/Other Substance use disorder Mental health disorder Social History Social History Household Members: Family Household Members Other:: with daughter Housing: Unknown / Unable to assess Do you presently have visiting nurse or other home services: No Unable to assess alcohol history related to: Unknown Alcohol intake: never Comment: 1:1 sitter Patient Tobacco Use Status: Never used Tobacco Smoked in Last 30 Days: No e-Cigarette/Vaping Use: Never Used Second Hand Smoke Exposure: No Use of substances other than those prescribed or required for medical reasons: No Advance Directives: Yes Advance Directives on File: Yes Advance Directives Date on File: 01/09/23 Do you have a plan to hurt others: No Plan service: No Current occupational status: disabled Current occupation: rt handed Sexual orientation: Straight/Heterosexual Gender identity: Female Cognitive needs: Yes (walker) Hearing needs: No Vision needs: Yes (glasses) Physical Exam ED Vital Signs: Vital Signs - 24 hr 04/16/24 23:09 04/16/24 23:29 04/16/24 23:29 Temperature 98.7 F 98.4 F 98.4 F Pulse Rate 94 94 94 Respiratory Rate 16 20 20 Blood Pressure 167/80 H 167/80 H Pulse Oximetry 95 98 Oxygen Delivery Method Room Air Room Air BMI result Body Mass Index 31.5 Const Other: Appearance: Alert. Oriented X3. No acute distress. Eyes: Pupils equal, round and reactive to light. ENT: Pharynx normal. Neck: Normal inspection. Neck supple. No lymph nodes noted. No crepitus CVS: Normal heart rate and rhythm. Pulses normal. Normal S1 and S2 Respiratory: No respiratory distress. Breath sounds normal. No Wheezing. No rales Abdomen: Soft and nontender. No rigidity. No distention. Skin: Ecchymosis in different stages of healing around the face, healed laceration above the left eyelid, clean, no signs of infection Extremities: Patient's right lower extremity has an obvious deformity, clearly it is fractured, not hard to palpation, compartment syndrome not suspected Neuro: Oriented X 3. No motor deficit. No sensory deficit. Moving all extremities. No slurred speech. CN 2 through 12 grossly intact Psych: calm, cooperative, normal affect Medications Administered Discontinued Medications Generic Name Dose Route Start Last Admin Trade Name Surekha PRN Reason Stop Dose Admin Hydromorphone HCl 1 mg 04/17/24 00:08 04/17/24 00:12 Hydromorphone Hcl 1 Mg/Ml Syringe IVPUSH 04/17/24 00:09 1 mg ONCE ONE Administration Protocol Levetiracetam 1,500 mg in 100 mls @ 400 mls/hr 04/16/24 23:21 04/17/24 00:12 Keppra IV 04/16/24 23:35 400 mls/hr ONCE ONE Administration Procedures Orthopedic Splinting/Casting Injury #1: Side: right Lower Extremity Injury Location: lower leg Lower Extremity Immobilizer: posterior splint Medical Decision Making Medical Decision Making MDM Narrative: -my interpretation of head CT: No acute creatinine bleed, patient has encephalomalacia of the temporal lobe on the left -patient has a significant fracture in both tibia and fibula of the right leg, significantly fragmented. -radiology report pending. - I discussed the patient with JAYNA Vaughn from orthopedics. Medicine to admit the patient. Recommendations: Splint and Orthopedics will follow up in the morning -I discussed the patient with Dr. Sams, patient being admitted by medicine -splint applied, tolerated well. Good capillary refill after the splint was placed Differential Diagnosis Differential Diagnoses: The differential diagnosis associated with the presentation includes (Seizure, intracranial bleed, cervical spine injury, tib- fib fracture) Admission/Observation Consideration of admission/observation: Escalation of care including admission/observation considered Consult Healthcare Provider Management of the patient was discussed with: Hospitalist and [employer] [employer] Lab Data [facility] Lab Attestation statement: I reviewed the patient's lab results. 04/17/24 00:04 04/17/24 00:04 Labs: Lab Results 04/17/24 Range/Units 00:04 WBC 8.3 (4.8-10.8) X10*3/uL RBC 3.62 L (4.20-5.50) X10*6/uL Hgb 11.5 L (12.0-16.0) g/dl Hct 33.5 L (37.0-47.0) % MCV 92.5 (80.0-98.0) fL MCH 31.8 (27.0-33.0) pg MCHC 34.3 (31.0-35.0) g/dl RDW 14.0 (11.0-16.0) % Plt Count 177 (160-400) X10*3/uL MPV 10.1 (9.4-12.3) fL Immature Gran % (Auto) 0.2 (0.0-0.4) % Neut % (Auto) 76.9 H (45-73) % Lymph % (Auto) 11.5 L (20-40) % [place] % (Auto) 10.4 (2-11) % Eos % (Auto) 0.4 (0-4) % Baso % (Auto) 0.6 (0-2) % Lymph # (Auto) 1.0 L (1.2-4.9) X10*3/uL [place] # (Auto) 0.9 (0.1-1.2) X10*3/uL Eos # (Auto) 0.0 (0.0-0.4) X10*3/uL Baso # (Auto) 0.1 (0.0-0.2) X10*3/uL Abs Immat Gran (auto) 0.02 (0.00-0.03) X10*3/uL Absolute Neuts (auto) 6.4 (2.0-8.3) x10*3/uL Absolute Nucleated RBC 0.000 (0.0-0.012) X10*3/uL Nucleated RBC % (auto) 0.0 (0.0-0.2) /100WBC Sodium 135 (135-145) mmol/L Potassium 4.0 (3.3-5.1) mmol/L Chloride 103 (96-108) mmol/L Carbon Dioxide 21 L (22-29) mmol/L Anion Gap 15 (12-20) BUN 10 (9-16) mg/dL Creatinine 0.66 (0.5-1.4) mg/dL Estim Creat Clear Calc 102.9 Estimated GFR > 60 Random Glucose 103 (60-115) mg/dL Lactic Acid 2.3 H* (0.5-2.0) mmol/L Calcium 7.9 L D (8.4-10.2) mg/dL Total Bilirubin 0.1 (0.0-1.0) mg/dL Direct Bilirubin < 0.2 (0.0-0.5) mg/dL AST 25 (5-31) U/L ALT 28 (0-31) U/L Alkaline Phosphatase 111 (39-117) U/L Troponin I High Sens < 2.7 (<3.5-17.0) ng/L Total Protein 6.4 L (6.5-8.0) g/dL Albumin 3.5 (3.5-5.0) g/dL Phenobarbital 26.1 (10.0-40.0) mcg/mL Independent Interpretation I performed an independent interpretation of an: CT Scan Radiology Impression Discussion of test interpretation with radiology: I have reviewed the radiologist's reading. Radiologist Impression: FINDINGS: There are comminuted fractures of the distal diaphysis involving the tibia and fibula. There is a questionable fracture involving the posterior malleolus. This could always be confirmed with CT if needed. The visualized knee joint appears unremarkable. XR/XR tibia fibula RT 2V IMPRESSION: 1. Comminuted fractures of the distal diaphysis of the tibia and fibula. 2. Questionable fracture involving the posterior malleolus. Critical Care Time Critical Care Time Critical Care Time: Yes Total Critical Care Time: 75 Attestation: I have personally provided critical care time. Time includes review of lab data, radiology results, discussion with consultants, and monitoring for potential decompensation. Intervention performed as documented. Discharge Plan Discharge Clinical Impression: Fracture tibia/fibula, Recurrent seizures Patient Disposition: Admitted As Inpatient Prescriptions: No Action magnesium oxide 400 mg (241.3 mg magnesium) tablet 400 mg PO QAM 90 Days Qty: 90 1RF dicyclomine 10 mg capsule 10 mg PO QID Qty: 360 4RF gabapentin 300 mg capsule 300 mg PO BID Xcopri 150 mg tablet 150 mg PO DAILY haloperidol 5 mg tablet 5 mg PO BEDTIME clobazam 10 mg Tablet 5 mg PO DAILY clobazam 20 mg tablet 10 mg PO BEDTIME haloperidol 5 mg Tablet 5 mg PO BID PRN (Reason: PSYCHOTIC AGITATION) hydroxyzine HCl 25 mg Tablet 25 mg PO Q6H PRN (Reason: Anxiety) Aptiom 600 mg tablet 600 mg PO BEDTIME phenobarbital 64.8 mg tablet 64.8 mg PO BID pantoprazole [Protonix] 40 mg tablet,delayed release (DR/EC) 40 mg PO DAILY Print Language: [place]
[2024-04-17] VITALS (9 sets, daily range): BP systolic 99–146; BP diastolic 65–88; PULSE 73–105; RESP 14–20; TEMP 36–37.1; O2SAT 92–100; BMI 30.8
[2024-04-17 00:09] LABS: MANUAL DIFF FLAG NO
[2024-04-17 00:11] LABS: Basophils Absolute Auto 0.1 X10*3/uL (0.0-0.2); Basophils Percent Auto 0.6 % (0-2); Eosinophils Percent Auto 0.4 % (0-4); Hematocrit 33.5 % (37.0-47.0); Hemoglobin 11.5 g/dl (12.0-16.0); Imm Gran Abs Auto 0.02 X10*3/uL (0.00-0.03); Imm Gran Pct Auto 0.2 % (0.0-0.4); Lymphocytes Percent Auto 11.5 % (20-40); Mean Corpuscular HGB Conc 34.3 g/dl (31.0-35.0); Mean Corpuscular Hemoglobin 31.8 pg (27.0-33.0); Mean Corpuscular Volume 92.5 fL (80.0-98.0); Mean Platelet Volume 10.1 fL (9.4-12.3); Monocytes Absolute Auto 0.9 X10*3/uL (0.1-1.2); Monocytes Percent Auto 10.4 % (2-11); Neutrophils Absolute Auto 6.4 x10*3/uL (2.0-8.3); Neutrophils Percent Auto 76.9 % (45-73); Platelet Count 177 X10*3/uL (160-400); Red Blood Count 3.62 X10*6/uL (4.20-5.50); White Blood Count 8.3 X10*3/uL (4.8-10.8)
[2024-04-17] MEDS: HYDROmorphone HCl 1 MG/ML SYRINGE IVPUSH ×5 (00:12→14:46)
[2024-04-17] MEDS: levETIRAcetam in NaCl (iso-os) 1,500 MG/100 ML PIGGYBACK 400 MG IV (00:12)
[2024-04-17 00:32] LABS: Alanine Aminotransferase 28 U/L (0-31); Albumin Level 3.5 g/dL (3.5-5.0); Alkaline Phosphatase 111 U/L (39-117); Anion Gap 15 (12-20); Aspartate Amino Transferase 25 U/L (5-31); Bilirubin Direct < 0.2 mg/dL (0.0-0.5); Bilirubin Total 0.1 mg/dL (0.0-1.0); Blood Urea Nitrogen 10 mg/dL (9-16); Calcium 7.9 mg/dL (8.4-10.2); Carbon Dioxide 21 mmol/L (22-29); Chloride 103 mmol/L (96-108); Creatinine Clr Calc Pharmacy 102.9; Estimated Glomerular Filt Rate > 60; Glucose Random 103 mg/dL (60-115); Sodium 135 mmol/L (135-145); Total Protein 6.4 g/dL (6.5-8.0); Troponin-I High Sensitivity < 2.7 ng/L (<3.5-17.0)
[2024-04-17 00:34] LABS: Lactic Acid 2.3 mmol/L (0.5-2.0)
[2024-04-17] MEDS: 0.9 % Sodium Chloride 1,000 ML 999 ML IVCONT (01:20)
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
[2024-04-17 02:08] LABS: Reflex Lactate? Lactic Acid Added
--- NOTE | 2024-04-17 02:09 | MHC.EDTECH ---
This pct assumed care of Patient at 0100 ,Pt was change into hospital gown ,and Pure wick in Place ,Pt belonings list done ,Tooth brush and tooth Paste and fresh ice water given to Pt ,Call jung within Pt reach .
--- NOTE | 2024-04-17 02:24 | MHC.EDTECH ---
Patient lactic acid drawn and sen6t to lab .
[2024-04-17] MEDS: PHENobarbitaL 30 MG TABLET 64.8 MG PO (02:33)
[2024-04-17 02:38] LABS: ~Lactic Acid-LAB USE ONLY 1.4 mmol/L (0.5-2.0)
[2024-04-17] MEDS: Heparin Sodium,Porcine 5,000 UNIT/ML VIAL 5000 UNIT SUBCUT ×3 (04:55→21:30)
[2024-04-17] MEDS: oxyCODONE HCl Immed Release 5 MG TABLET PO ×2 (04:56→15:44)
[2024-04-17] MEDS: Acetaminophen 325 MG TABLET 975 MG PO ×3 (04:56→21:30)
[2024-04-17 05:02] LABS: MANUAL DIFF FLAG NO
[2024-04-17 05:03] LABS: Basophils Percent Auto 0.4 % (0-2); Eosinophils Percent Auto 0.1 % (0-4); Hematocrit 31.4 % (37.0-47.0); Hemoglobin 10.7 g/dl (12.0-16.0); Imm Gran Abs Auto 0.04 X10*3/uL (0.00-0.03); Imm Gran Pct Auto 0.4 % (0.0-0.4); Lymphocytes Absolute Auto 1.1 X10*3/uL (1.2-4.9); Lymphocytes Percent Auto 10.6 % (20-40); Mean Corpuscular HGB Conc 34.1 g/dl (31.0-35.0); Mean Corpuscular Hemoglobin 31.7 pg (27.0-33.0); Mean Corpuscular Volume 92.9 fL (80.0-98.0); Mean Platelet Volume 10.4 fL (9.4-12.3); Monocytes Percent Auto 9.2 % (2-11); Neutrophils Absolute Auto 8.5 x10*3/uL (2.0-8.3); Neutrophils Percent Auto 79.3 % (45-73); Platelet Count 180 X10*3/uL (160-400); Red Blood Count 3.38 X10*6/uL (4.20-5.50); Red Cell Distribution Width 14.1 % (11.0-16.0); White Blood Count 10.7 X10*3/uL (4.8-10.8)
--- NOTE | 2024-04-17 05:12 | PC.NURSE ---
CMS intact bilateral lower extremities.
[2024-04-17 05:19] LABS: Anion Gap 14 (12-20); Blood Urea Nitrogen 9 mg/dL (9-16); Calcium 8.6 mg/dL (8.4-10.2); Carbon Dioxide 22 mmol/L (22-29); Chloride 103 mmol/L (96-108); Creatinine Clr Calc Pharmacy 107.9; Estimated Glomerular Filt Rate > 60; Glucose Random 97 mg/dL (60-115); Potassium 4.9 mmol/L (3.3-5.1); Sodium 134 mmol/L (135-145)
--- NOTE | 2024-04-17 07:28 | PC.NURSE ---
Provider Latrell Ball made aware that patient's home seizure medications are nonformulary and the hospital doesn't carry them (cenobamate, eslicarbazepine).
--- NOTE | 2024-04-17 07:36 | PC.NURSE ---
Spoke with pt's daughter (HCP) Hamida ([phone]). Reports pt lives with the daughter's father, that pt got up last night without assistance to use the BR and had a seizure/fell. Daughter made aware we are in need of her antiseizure medication, stated she would reach out to the pt's DRUG ABUSE TECHNICIAN to bring in her medications (daughter is currently on vacation in [place]).
[2024-04-17] MEDS: 0.9 % Sodium Chloride Flush 3 ML SYRINGE IVFLUSH ×3 (08:02→21:31)
--- NOTE | 2024-04-17 09:14 | PC.NURSE ---
Medication blister packet brought in by pt's ROOMS DIRECTOR, hand delievered to vice president pharmacy.
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
--- NOTE | 2024-04-17 09:36 | PHA.MEDREC ---
Pharmacy Consult ? Medication Reconciliation Pharmacy has completed the medication reconciliation. Nurse gave me Patients medication including patients Non formulary meds Xcopri 200 mg daily, and Aptiom 600 mg at bedtime. Spoke to patients Daughter (Hamida) to confirm other meds on list. Daughter states patient takes Clobazam 25 mg daily and 5 mg at bedtime, however last claim date is 10-29-23- for 30 day, Haloperidol 5 mg daily and 10 mg at bedtime and Phenobarbital 129-6 at bedtime.
[2024-04-17] MEDS: levETIRAcetam in NaCl (iso-os) 1,000 MG/100 ML PIGGYBACK 400 MG IV (09:47)
--- NOTE | 2024-04-17 11:29 | PM.EVENT ---
Event Note Date of Service: 04/17/24 Event Note: Patient seen and evaluated this morning complaining of pain in RLE with a plan for surgery by orthopedic tomorrow morning IV dilaudid for pain control restart home medications, hold on more Keppra for now pending neurology evaluation seizure precautions PRN ATivan for breakthrough seizure Time Spent With Patient Time: Total time managing care of this patient today ____ minutes.
--- NOTE | 2024-04-17 11:41 | P.CNNE_ITS ---
History of Present Illness Data of Consult Service Date: 04/17/24 Primary Care Provider: [facility] HPI Reason for consult: Epilepsy 58 years old woman who is head CT revealed a large left occipital area encephalomalacia with signs of craniotomy suggesting that a mass might have been removed from that area, and chronic intractable epilepsy. Seizures have mostly been complex partial type. She was following Dr. Barnes and also had seen doctors in [place]. She was brought to hospital after she fell down and sustained injury to her leg. She said that she had a seizure. Review of Systems 2 Review of Systems: No recent cold or flu-like illness. She said that she was taking medicines on regular basis. [facility] Past Medical History Medical History Epilepsy Fracture of T12 vertebra Psychosis Recurrent seizures Hypomagnesemia Burn injury Delusional disorder Epilepsy Urinary incontinence IBS (irritable bowel syndrome) Overactive bladder Class 1 obesity due to excess calories with body mass index (BMI) of 30.0 to 30.9 in adult Mild recurrent major depression Gait instability Polyarthralgia Depression Urge urinary incontinence Screening for cervical cancer Pre-op examination Pre-op evaluation Unsteady gait Expressive aphasia Hyponatremia Encephalomalacia GERD (gastroesophageal reflux disease) Hypotension Seizures Family History Family History Father Heart problem Mother Diabetes Low blood pressure Family/Other Substance use disorder Mental health disorder Surgical History Surgical History History of tumor H/O prior ablation treatment History of skin graft History of tubal ligation Surgical history unknown Social History Social History Household Members: Family Household Members Other:: with daughter Housing: Unknown / Unable to assess Do you presently have visiting nurse or other home services: No Unable to assess alcohol history related to: Unknown Alcohol intake: never Comment: 1:1 sitter Patient Tobacco Use Status: Never used Tobacco Smoked in Last 30 Days: No e-Cigarette/Vaping Use: Never Used Second Hand Smoke Exposure: No Use of substances other than those prescribed or required for medical reasons: No Advance Directives: Yes Advance Directives on File: Yes Advance Directives Date on File: 04/18/23 Do you have a plan to hurt others: No Plan service: No Current occupational status: disabled Current occupation: rt handed Sexual orientation: Straight/Heterosexual Gender identity: Female Cognitive needs: Yes (walker) Hearing needs: No Vision needs: Yes (glasses) Meds Allergies Allergy/AdvReac Type Severity Reaction Status Date / Time Iodinated Contrast Media Allergy Intermediate RED ALL Verified 04/16/24 23:28 [IV Dye, Iodine Containing] OVER NAUSEA AND LOST RESPIRATIONS Penicillins [PENICILLINS] Allergy Intermediate Unknown Verified 04/16/24 23:28 phenytoin [From Dilantin] Allergy Intermediate gum Verified 04/16/24 23:28 swelling lamotrigine [From Lamictal] Allergy Unknown unknown Verified 04/16/24 23:28 Active Medications: Current Medications Acetaminophen (Acetaminophen 325 Mg Tablet) 975 mg PO Q6H [facility] Last Admin: 04/17/24 04:56 Dose: 975 mg Dicyclomine HCl (Dicyclomine Hcl 10 Mg Capsule) 10 mg PO QID [facility] Gabapentin (Gabapentin 300 Mg Capsule) 300 mg PO BID [facility] Haloperidol (Haloperidol 5 Mg Tablet) 10 mg PO BEDTIME [facility] Haloperidol (Haloperidol 5 Mg Tablet) 5 mg PO DAILY [facility] Heparin Sodium (Porcine) (Heparin Sodium,Porcine 5,000 Unit/Ml Vial) 5,000 unit SUBCUT Q8H [facility] Last Admin: 04/17/24 04:55 Dose: 5,000 unit Hydromorphone HCl (Hydromorphone Hcl 1 Mg/Ml Syringe) 1 mg IVPUSH Q4H PRN; Protocol PRN Reason: Pain, Severe (Pain Scale 7-10) Lorazepam (Lorazepam 2 Mg/Ml Vial) 2 mg IVPUSH ONCE PRN PRN Reason: Seizures Magnesium Oxide (Magnesium Oxide 400 Mg Tablet) 400 mg PO DAILY [facility] Multivitamins/Vitamin C (Multivitamin Tablet) 1 tab PO DAILY [facility] Pt Own (Cenobamate [ Xcopri] 200 Mg Tablet) 200 mg PO DAILY [facility] Last Admin: 04/17/24 09:51 Dose: 200 mg Pt Own ( Eslicarbazepine [ Aptiom] 600 Mg Tablet) 600 mg PO BEDTIME [facility] Non-Formulary Medication (Clobazam) 5 mg PO DAILY [facility] Non-Formulary Medication (Clobazam) 25 mg PO BEDTIME [facility] Non-Formulary Medication (Phenobarbital) 129.6 mg PO BEDTIME [facility] Oxycodone HCl (Oxycodone Hcl Immed Release 5 Mg Tablet) 5 mg PO Q6H PRN PRN Reason: Pain, Moderate(Pain Scale 4-6) Sodium Chloride (0.9 % Sodium Chloride Flush 3 Ml Syringe) 3 ml IVFLUSH QSHIFT [facility] Last Admin: 04/17/24 08:02 Dose: 3 ml Home Medications ?Medication ?Instructions ?Recorded ?Confirmed ?Last Taken ?Type gabapentin 300 mg capsule 300 mg PO BID 05/10/23 04/17/24 04/16/24 History clobazam 10 mg tablet 25 mg PO BEDTIME 05/11/23 04/17/24 04/16/24 History haloperidol 5 mg tablet 5 mg PO DAILY 05/11/23 04/17/24 04/16/24 History haloperidol 5 mg tablet 10 mg PO BEDTIME 05/20/23 04/17/24 04/16/24 History eslicarbazepine 600 mg tablet 600 mg PO BEDTIME 09/05/23 04/17/24 04/16/24 History (Aptiom) pantoprazole 40 mg tablet,delayed 40 mg PO DAILY@0630 09/05/23 04/17/24 04/16/24 History release (Protonix) acetaminophen 500 mg tablet 500 mg PO Q6H PRN Pain 04/17/24 04/17/24 Unknown History (Tylenol Extra Strength) cenobamate 200 mg tablet (Xcopri) 200 mg PO DAILY 04/17/24 04/17/24 04/16/24 History clobazam 10 mg tablet 5 mg PO DAILY 04/17/24 04/17/24 04/16/24 History cranberry 500 mg capsule 500 mg PO DAILY 04/17/24 04/17/24 Unknown History magnesium oxide 400 mg (241.3 mg 400 mg PO DAILY 04/17/24 04/17/24 04/16/24 History magnesium) tablet multivitamin 1 tab PO DAILY 04/17/24 04/17/24 04/16/24 History phenobarbital 64.8 mg tablet 129.6 mg PO BEDTIME 04/17/24 04/17/24 04/16/24 History Physical Exam 2 Vital Signs: Vital Signs: Last Vital Signs Temp 98.4 F 04/17/24 06:06 Pulse 76 04/17/24 08:00 Resp 14 04/17/24 08:00 BP 114/66 04/17/24 08:00 Pulse Ox 100 04/17/24 08:00 O2 Del Method Room Air 04/17/24 08:00 BMI result Body Mass Index 31.5 Neuro: Other: Alert and awake with normal spontaneity of speech fluency comprehension and affect. Into was performed with the help of an latin professor. Face was symmetrical. Visual cameron were difficult to determine. There was no obvious focal weakness but right leg was in Band-Aid and she was not moving it well. Results Labs 04/17/24 04:44 04/17/24 04:44 Labs: Short CBC 04/17/24 04/17/24 Range/Units 00:04 04:44 WBC 8.3 10.7 (4.8-10.8) X10*3/uL Hgb 11.5 L 10.7 L (12.0-16.0) g/dl Hct 33.5 L 31.4 L (37.0-47.0) % Plt Count 177 180 (160-400) X10*3/uL BMP 04/17/24 04/17/24 00:04 04:44 Sodium 135 134 L Potassium 4.0 4.9 D Chloride 103 103 Carbon Dioxide 21 L 22 BUN 10 9 Creatinine 0.66 0.63 Calcium 7.9 L D 8.6 D Liver Function 04/17/24 Range/Units 00:04 Total Bilirubin 0.1 (0.0-1.0) mg/dL Direct Bilirubin < 0.2 (0.0-0.5) mg/dL AST 25 (5-31) U/L ALT 28 (0-31) U/L Alkaline Phosphatase 111 (39-117) U/L Albumin 3.5 (3.5-5.0) g/dL Head CT revealed large right posterior cerebral artery area or occipital area encephalomalacia with overlying signs of craniotomy Assessment and Plan (1) Recurrent seizures: Status: Acute 58 years old unfortunate woman with left occipital encephalomalacia and evidence of craniotomy suggesting that a mass might have been removed and subsequent chronic intractable epilepsy mostly comprising of complex partial seizures sometime larger ones. She was in hospital with breakthrough seizure and injury to right leg. My suggestion is to continue baseline medications and make adjustment as an outpatient. It would be difficult to make any urgent changes to her medications while she was not actively seizing and only required adjustment of medications as an outpatient. She should see a neurologist after discharge. Maybe vagus nerve stimulator can be considered for her. Procedures Date of Service Date of Service: 04/17/24
[2024-04-17] MEDS: cloBAZam 10 MG TABLET 5 MG PO (13:19)
[2024-04-17] MEDS: Dicyclomine HCl 10 MG CAPSULE PO ×3 (13:19→21:30)
--- NOTE | 2024-04-17 13:51 | PC.NURSE ---
pt given food and water, diet order in. NPO at midnight. medications given per NOV. no distress noted, pt resting in bed
[2024-04-17] MEDS: Gabapentin 300 MG CAPSULE PO (21:29)
[2024-04-17] MEDS: HaloperidoL 5 MG TABLET 10 MG PO (21:29)
[2024-04-17] MEDS: cloBAZam 10 MG TABLET 25 MG PO (21:30)
[2024-04-18] VITALS (12 sets, daily range): BP systolic 100–130; BP diastolic 58–77; PULSE 77–104; RESP 16–20; TEMP 36.3–37.4; O2SAT 97–100
[2024-04-18] MEDS: HYDROmorphone HCl 1 MG/ML SYRINGE IVPUSH ×2 (01:34→17:27)
[2024-04-18] MEDS: Heparin Sodium,Porcine 5,000 UNIT/ML VIAL 5000 UNIT SUBCUT ×2 (06:10→20:54)
[2024-04-18] MEDS: 0.9 % Sodium Chloride Flush 3 ML SYRINGE IVFLUSH ×2 (08:21→17:29)
--- NOTE | 2024-04-18 08:35 | MHC.CM.PN ---
IMM 04/18. Pt requires a conference interpreter. This CM completed CM intake assessment with pts daughter/HCP Hamida due to pt noted to be a poor historian. Pt lives at home with her and daughter. She receives HERPETOLOGIST services daily (42.15 hours/week), and uses a walker. Pts daughter stated that she previously had a VNA and they stopped coming, but she would like her to have a VNA agency again to help her with her medications, the previous agency was [facility] , but she would like another agency who is able to provide medication management. HCP on file and verified. Pts daughter or pts HERPETOLOGIST will transport her home at discharge. PCP: Dr. Priscila Rivas
--- NOTE | 2024-04-18 08:50 | PM.PNORT ---
Subjective Subjective Date of Service: 04/18/24 Interval history: Patient resting comfortably in bed No overnight events Pain is tolerable with no motion Elevating RLE on pillows above heart level Physical Exam Vital Signs: Vital Signs: Last Vital Signs Temp 97.3 F 04/18/24 07:40 Pulse 98 04/18/24 07:40 Resp 20 04/18/24 07:40 BP 125/68 04/18/24 07:40 Pulse Ox 100 04/18/24 07:40 O2 Del Method Room Air 04/18/24 07:40 BMI result Body Mass Index 30.8 Const: General: cooperative, healthy appearing and no acute distress Resp: Effort & Inspection: normal respiratory effort and able to speak in complete sentences Cardio: Rate: regular rate Peripheral pulses: Peripheral pulses 2+ throughout GI: Palpation (GI): Soft to palpation Skin: Lesions: no lesions Rashes: no rashes Extrem: Other: RLE splint is c/d/i compartments are soft. Able to move digits. Sensation inact. Procedures Date of Service Date of Service: 04/18/24 Progress Note: A&P Assessment and plan (1) Fracture tibia/fibula: Status: Acute Assessment and Plan: NPO for OR later today Keep splint c/d/i Continue elevation Pain management Plan for OR later this afternoon Time Spent With Patient Time: Total time managing care of this patient today ____ minutes. Quality Stroke Does the patient have a stroke diagnosis?: No VTE Prior VTE?: No VTE Risk Level:: Medical - moderate - high VTE Device Contraindication: Treatment Not Indicated VTE Drug Contraindication: N/A - Med Ordered
[2024-04-18 09:40] LABS: Hematocrit 31.3 % (37.0-47.0); Hemoglobin 10.9 g/dl (12.0-16.0); Mean Corpuscular HGB Conc 34.8 g/dl (31.0-35.0); Mean Corpuscular Hemoglobin 32.2 pg (27.0-33.0); Mean Corpuscular Volume 92.6 fL (80.0-98.0); Mean Platelet Volume 9.8 fL (9.4-12.3); Platelet Count 173 X10*3/uL (160-400); Red Blood Count 3.38 X10*6/uL (4.20-5.50); White Blood Count 5.9 X10*3/uL (4.8-10.8)
[2024-04-18 10:01] LABS: Anion Gap 13 (12-20); Blood Urea Nitrogen 8 mg/dL (9-16); Calcium 8.9 mg/dL (8.4-10.2); Carbon Dioxide 28 mmol/L (22-29); Chloride 98 mmol/L (96-108); Creatinine Clr Calc Pharmacy 124.4; Estimated Glomerular Filt Rate > 60; Glucose Random 86 mg/dL (60-115); Potassium 4.1 mmol/L (3.3-5.1); Sodium 135 mmol/L (135-145)
--- NOTE | 2024-04-18 10:46 | MHC.CM.PN ---
Per ROUNDS discussion, Patient is not yet medically cleared for dc (Surgery today/may be ready for dc by Sunday04/21/2024); home/resume services is the goal and CM will continue to follow.
--- NOTE | 2024-04-18 12:23 | HO.PM.IMPN ---
Subjective Subjective Date of Service: 04/18/24 Interval History: seen and evaluated this morning no reported seizures overnight pain under fair control plan for surgery this afternoon Review of Systems Review of Systems: Yes all other systems are reviewed and are negative Physical Exam Vital Signs: Vital Signs: Last Vital Signs Temp 97.4 F 04/18/24 11:08 Pulse 100 04/18/24 11:08 Resp 18 04/18/24 11:08 BP 119/65 04/18/24 11:08 Pulse Ox 98 04/18/24 11:08 O2 Del Method Room Air 04/18/24 11:08 BMI result Body Mass Index 30.8 Const: Other: Constitutional : Awake, interactive, not in distress Neck : Normal inspection, Supple Cardiovascular : RRR, no JVP, no lower extremity edema Respiratory : good bilateral air entry, no crackles, wheezes or rhonchi Gastrointestinal: soft, lax, Normal bowel sounds, Non tender Skin : Warm, Dry Extremities: RLE externally rotated, good pulses bilaterally Neurological : Alert & oriented to self and place, No focal deficit Objective Data Active Medications Acetaminophen (Acetaminophen 325 Mg Tablet) 975 mg PO Q6H [facility] Last Admin: 04/18/24 10:35 Dose: Not Given Documented By: VARSHA Non-Admin Reason: NPO Clobazam (Clobazam 10 Mg Tablet) 5 mg PO DAILY [facility] Last Admin: 04/18/24 07:29 Dose: Not Given Documented By: VARSHA Non-Admin Reason: NPO Clobazam (Clobazam 10 Mg Tablet) 25 mg PO BEDTIME [facility] Last Admin: 04/17/24 21:30 Dose: 25 mg Documented By: RAJ Dicyclomine HCl (Dicyclomine Hcl 10 Mg Capsule) 10 mg PO QID [facility] Last Admin: 04/18/24 07:29 Dose: Not Given Documented By: VARSHA Non-Admin Reason: NPO Docusate Sodium (Docusate Sodium 100 Mg Capsule) 200 mg PO BEDTIME [facility] Gabapentin (Gabapentin 300 Mg Capsule) 300 mg PO BID [facility] Last Admin: 04/18/24 07:30 Dose: Not Given Documented By: VARSHA Non-Admin Reason: NPO Haloperidol (Haloperidol 5 Mg Tablet) 10 mg PO BEDTIME [facility] Last Admin: 04/17/24 21:29 Dose: 10 mg Documented By: RAJ Haloperidol (Haloperidol 5 Mg Tablet) 5 mg PO DAILY [facility] Last Admin: 04/18/24 07:30 Dose: Not Given Documented By: VARSHA Non-Admin Reason: NPO Heparin Sodium (Porcine) (Heparin Sodium,Porcine 5,000 Unit/Ml Vial) 5,000 unit SUBCUT Q8H [facility] Last Admin: 04/18/24 06:10 Dose: 5,000 unit Documented By: RAJ Hydromorphone HCl (Hydromorphone Hcl 1 Mg/Ml Syringe) 1 mg IVPUSH Q4H PRN; Protocol PRN Reason: Pain, Severe (Pain Scale 7-10) Last Admin: 04/18/24 01:34 Dose: 1 mg Documented By: RAJ Lorazepam (Lorazepam 2 Mg/Ml Vial) 2 mg IVPUSH ONCE PRN PRN Reason: Seizures Magnesium Oxide (Magnesium Oxide 400 Mg Tablet) 400 mg PO DAILY [facility] Last Admin: 04/18/24 07:30 Dose: Not Given Documented By: VARSHA Non-Admin Reason: NPO Multivitamins/Vitamin C (Multivitamin Tablet) 1 tab PO DAILY [facility] Last Admin: 04/18/24 07:30 Dose: Not Given Documented By: VARSHA Non-Admin Reason: NPO Pt Own (Cenobamate [ Xcopri] 200 Mg Tablet) 200 mg PO DAILY [facility] Last Admin: 04/18/24 08:20 Dose: 200 mg Documented By: VARSHA Pt Own ( Eslicarbazepine [ Aptiom] 600 Mg Tablet) 600 mg PO BEDTIME [facility] Last Admin: 04/17/24 21:29 Dose: 600 mg Documented By: RAJ Pt Own ( Phenobarbital 64.8 Mg Tablet) 129.6 mg PO BEDTIME [facility] Last Admin: 04/17/24 21:29 Dose: 129.6 mg Documented By: RAJ Oxycodone HCl (Oxycodone Hcl Immed Release 5 Mg Tablet) 5 mg PO Q6H PRN PRN Reason: Pain, Moderate(Pain Scale 4-6) Last Admin: 04/17/24 15:44 Dose: 5 mg Documented By: HO.RIVEJES Sodium Chloride (0.9 % Sodium Chloride Flush 3 Ml Syringe) 3 ml IVFLUSH QSHIFT [facility] Last Admin: 04/18/24 08:21 Dose: 3 ml Documented By: VARSHA Labs 04/18/24 09:32 04/18/24 09:32 Labs: Laboratory Results - last 24 hr 04/18/24 04/18/24 09:32 11:11 MCV 92.6 MCH 32.2 MCHC 34.8 RDW 14.0 Plt Count 173 MPV 9.8 Absolute Nucleated RBC 0.000 Nucleated RBC % (auto) 0.0 Hold Purple Top SEE NOTE Anion Gap 13 Estim Creat Clear Calc 124.4 Estimated GFR > 60 Random Glucose 86 Calcium 8.9 Hold Yellow Top See Note Blood Type A Negative Antibody Screen NEGATIVE Assessment and Plan (1) Recurrent seizures: Status: Acute (2) Fracture tibia/fibula: Status: Acute Plan Nanci Quijano is a 58 y/o woman with PMHx significant for seizures (s/p craniotomy -tumor removal) admitted with: Breakthrough Seizurewith hx of recalcitrant epilepsy failing meds combinations. Aspiration and seizures precautions. Continue home anti-seizures medications phenobarbital, Aptiom and Xcopri; clobazam Ativan 2 mg IV prn as needed for seizures. She has been recommended to use injury protection (helmet). Neurology input appreciated, use home medications and outpatient F\U w primary neurologist for Vagus nerve stimulator Right tib-fib comminuted fracture. Posterior splint applied by ED. Pain control with Tylenol, morphine, oxycodone as needed. Orthopedic surgery to take her to OR this afternoon PT tomorrow Head trauma + left eyebrow laceration no stitches required. Head CT scan is negative. Local care by nursing. acute Lactic acidosis, mild, secondary to seizures. No SIRS criteria or sings of infection Major depressive disorder. controlled on home medicaitons Hx of expressive aphasia. Delusional disorder. Taking haldol. DVT prophylaxis: Heparin Code status: Full Patient will need hospitalization overniht for seizure evaluation and treatment and Orthopedic surgery operation for right tib-fib fracture. Quality Stroke Does the patient have a stroke diagnosis?: No VTE Prior VTE?: No VTE Risk Level:: Medical - moderate - high VTE Device Contraindication: Treatment Not Indicated VTE Drug Contraindication: N/A - Med Ordered
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
--- NOTE | 2024-04-18 13:25 | MHC.SHP ---
Pre-Procedural Eval Section A - 24 Hr Update-Section A only Date of Service: 04/18/24 The patient is an INPATIENT: Yes Changes since office visit: No Cold of Flu in the past 2 weeks, No New Medical Problems, No Changes in Medication and No Patient answered all questions The patient has been examined within 24 hours of the surgical procedure. The History & Physical has been completed within 30 days and I have reviewed it.: Yes Section B - Complete if H&P > 30 days Chief Complaint: Seizures, right leg fracture Allergies: Allergies Allergy/AdvReac Type Severity Reaction Status Date / Time Iodinated Contrast Media Allergy Intermediate RED ALL Verified 04/16/24 23:28 [IV Dye, Iodine Containing] OVER NAUSEA AND LOST RESPIRATIONS Penicillins [PENICILLINS] Allergy Intermediate Unknown Verified 04/16/24 23:28 phenytoin [From Dilantin] Allergy Intermediate gum Verified 04/16/24 23:28 swelling lamotrigine [From Lamictal] Allergy Unknown unknown Verified 04/16/24 23:28 Plan I have reviewed the history and physical and performed a pertinent physical examination on my patient. No changes have occurred unless specified. Time Spent With Patient Time: Total time managing care of this patient today ____ minutes.
[2024-04-18] MEDS: Lactated Ringers 1,000 ML 100 ML IVCONT (13:44)
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
--- NOTE | 2024-04-18 15:49 | PM.OP ---
Brief Operative Note Date of Service: 04/18/24 Pre-op diagnosis: Right tib fib fracture Post-op diagnosis: same Procedure: IMN right tib fib Implants: Douglas alpha T2 [id number] IMN with 2 distal and two proximal interlocking screws Surgeon: Tru Muñiz MD Anesthesia: GETA and local Was an Anhydrous Ammonia Production Supervisor used for this Procedure?: No Estimated blood loss (mL): 250 IV fluids (mL): 120 Pathology: none sent Condition: stable Disposition: PACU Complications (if any): l Assessment and Plan (No Qualifiers) Assessment and Plan (1) Fracture tibia/fibula: Status: Acute Plan: Lovenox/Eliquis WBAT in boot with PT and Walker
[2024-04-18] MEDS: fentaNYL citrate/PF 100 MCG/2 ML VIAL 25 MCG IVPUSH (16:20)
[2024-04-18] MEDS: Acetaminophen 325 MG TABLET 975 MG PO (17:28)
[2024-04-18] MEDS: Dicyclomine HCl 10 MG CAPSULE PO (17:29)
[2024-04-18] MEDS: Clindamycin Phosphate/D5W 600 MG/50 ML PIGGYBACK 100 MG IV (20:50)
[2024-04-18] MEDS: HaloperidoL 5 MG TABLET 10 MG PO (20:52)
[2024-04-18] MEDS: Gabapentin 300 MG CAPSULE PO (20:53)
[2024-04-18] MEDS: cloBAZam 10 MG TABLET 25 MG PO (21:11)
[2024-04-18] MEDS: oxyCODONE HCl Immed Release 5 MG TABLET PO (23:02)
[2024-04-19] VITALS (10 sets, daily range): BP systolic 86–104; BP diastolic 50–60; PULSE 75–95; RESP 18; TEMP 36.2–36.6; O2SAT 96–100
[2024-04-19] MEDS: 0.9 % Sodium Chloride Flush 3 ML SYRINGE IVFLUSH ×4 (00:50→21:08)
[2024-04-19] MEDS: Acetaminophen 325 MG TABLET 975 MG PO ×3 (00:50→13:47)
[2024-04-19] MEDS: oxyCODONE HCl Immed Release 5 MG TABLET PO ×2 (06:20→17:46)
[2024-04-19] MEDS: Heparin Sodium,Porcine 5,000 UNIT/ML VIAL 5000 UNIT SUBCUT (06:21)
[2024-04-19 07:11] LABS: Hematocrit 27.3 % (37.0-47.0); Hemoglobin 9.4 g/dl (12.0-16.0); Mean Corpuscular HGB Conc 34.4 g/dl (31.0-35.0); Mean Corpuscular Hemoglobin 31.8 pg (27.0-33.0); Mean Corpuscular Volume 92.2 fL (80.0-98.0); Mean Platelet Volume 10.2 fL (9.4-12.3); Platelet Count 201 X10*3/uL (160-400); Red Blood Count 2.96 X10*6/uL (4.20-5.50); Red Cell Distribution Width 14.4 % (11.0-16.0); White Blood Count 7.8 X10*3/uL (4.8-10.8)
[2024-04-19 07:50] LABS: Anion Gap 14 (12-20); Blood Urea Nitrogen 17 mg/dL (9-16); Calcium 9.2 mg/dL (8.4-10.2); Carbon Dioxide 29 mmol/L (22-29); Chloride 96 mmol/L (96-108); Creatinine Clr Calc Pharmacy 96.1; Estimated Glomerular Filt Rate > 60; Glucose Random 88 mg/dL (60-115); Sodium 135 mmol/L (135-145)
--- NOTE | 2024-04-19 08:02 | PM.PNORT ---
Subjective Subjective Date of Service: 04/20/24 Interval history: POD 1 s/p IMN right tib fib 04/18/24 No overnight events resting in bed Physical Exam Vital Signs: Vital Signs: Last Vital Signs Temp 97.5 F 04/19/24 03:32 Pulse 75 04/19/24 03:32 Resp 18 04/19/24 03:32 BP 94/58 L 04/19/24 03:32 Pulse Ox 96 04/19/24 03:32 O2 Del Method Room Air 04/19/24 03:32 BMI result Body Mass Index 30.8 Const: General: cooperative, healthy appearing and no acute distress Resp: Effort & Inspection: normal respiratory effort and able to speak in complete sentences Cardio: Rate: regular rate Peripheral pulses: Peripheral pulses 2+ throughout GI: Palpation (GI): Soft to palpation Skin: General skin exam: no rashes or lesions noted Extrem: Other: RLE incisions are clean, dry and intact Mild edema in the lower extremity, compartments are soft calf supple non tender She is able to dorsi flex and plantar flex the foot NVI. Procedures Date of Service Date of Service: 04/20/24 Progress Note: A&P Assessment and plan (1) Tibia/fibula fracture, shaft: Status: Acute Plan Pain mgmnt PT/OT WBAT with boot with walker Lovenox for dvt ppx dispo pending PT/OT eval Time Spent With Patient Time: Total time managing care of this patient today ____ minutes. Quality Stroke Does the patient have a stroke diagnosis?: No VTE Prior VTE?: No VTE Risk Level:: Medical - moderate - high VTE Device Contraindication: Treatment Not Indicated VTE Drug Contraindication: N/A - Med Ordered
[2024-04-19] MEDS: Gabapentin 300 MG CAPSULE PO ×2 (08:19→21:08)
[2024-04-19] MEDS: Magnesium Oxide 400 MG TABLET PO (08:19)
[2024-04-19] MEDS: Multivitamin TABLET 1 TAB PO (08:19)
[2024-04-19] MEDS: cloBAZam 10 MG TABLET 5 MG PO (08:19)
[2024-04-19] MEDS: Dicyclomine HCl 10 MG CAPSULE PO ×4 (08:19→21:07)
[2024-04-19] MEDS: HaloperidoL 5 MG TABLET PO (09:15)
--- NOTE | 2024-04-19 12:56 | HO.POSTANES ---
Post Anesthesia Evaluation Post Anesthesia Evaluation Date of Service: 04/19/24 Vital Signs: Vital Signs Temp Pulse Resp BP Pulse Ox O2 Del Method 04/19/24 12:00 97.4 F 95 18 99/60 98 Room Air 04/19/24 08:11 86/50 L 04/19/24 08:00 97.4 F 76 18 86/50 L 100 Room Air 04/19/24 03:32 97.5 F 75 18 94/58 L 96 Room Air Anesthesia: General Endotracheal-GETA Mental Status: Awake Pain Control: Satisfactory Nausea/Vomiting: None Hydration: Adequate Anesthesia-Related Issues: No Anes. Related Issues
[2024-04-19] MEDS: Enoxaparin Sodium 40 MG/0.4 ML SYRINGE SUBCUT (13:47)
--- NOTE | 2024-04-19 14:28 | P.PNIM_ITS ---
Subjective Subjective Date of Service: 04/19/24 Interval History: seen and evaluated this morning no reported seizures overnight POD 1, pain under fair control No other overnight events Review of Systems Review of Systems: Yes all other systems are reviewed and are negative Physical Exam 2 Vital Signs: Vital Signs: Last Vital Signs Temp 97.4 F 04/19/24 12:00 Pulse 95 04/19/24 13:09 Resp 18 04/19/24 12:00 BP 99/60 04/19/24 13:09 Pulse Ox 98 04/19/24 13:09 O2 Del Method Room Air 04/19/24 12:00 BMI result Body Mass Index 30.8 Const: Other: Constitutional : Awake, interactive, not in distress Neck : Normal inspection, Supple Cardiovascular : RRR, no JVP, no lower extremity edema Respiratory : good bilateral air entry, no crackles, wheezes or rhonchi Gastrointestinal: soft, lax, Normal bowel sounds, Non tender Skin : Warm, Dry Extremities: RLE in dressing, good pulses bilaterally Neurological : Alert & oriented to self and place, No focal deficit Objective Data Active Medications Acetaminophen (Acetaminophen 325 Mg Tablet) 975 mg PO Q6H [facility] Last Admin: 04/19/24 13:47 Dose: 975 mg Documented By: TOSIN Clobazam (Clobazam 10 Mg Tablet) 5 mg PO DAILY [facility] Last Admin: 04/19/24 08:19 Dose: 5 mg Documented By: TOSIN Clobazam (Clobazam 10 Mg Tablet) 25 mg PO BEDTIME [facility] Last Admin: 04/18/24 21:11 Dose: 25 mg Documented By: JUAN DANIEL Dicyclomine HCl (Dicyclomine Hcl 10 Mg Capsule) 10 mg PO QID [facility] Last Admin: 04/19/24 13:47 Dose: 10 mg Documented By: TOSIN Docusate Sodium (Docusate Sodium 100 Mg Capsule) 200 mg PO BEDTIME [facility] Last Admin: 04/18/24 22:38 Dose: Not Given Documented By: JUAN DANIEL Non-Admin Reason: Patient Refused Enoxaparin Sodium (Enoxaparin Sodium 40 Mg/0.4 Ml Syringe) 40 mg SUBCUT Q24H [facility] Last Admin: 04/19/24 13:47 Dose: 40 mg Documented By: TOSIN Gabapentin (Gabapentin 300 Mg Capsule) 300 mg PO BID [facility] Last Admin: 04/19/24 08:19 Dose: 300 mg Documented By: TOSIN Haloperidol (Haloperidol 5 Mg Tablet) 10 mg PO BEDTIME [facility] Last Admin: 04/18/24 20:52 Dose: 10 mg Documented By: JUAN DANIEL Haloperidol (Haloperidol 5 Mg Tablet) 5 mg PO DAILY [facility] Last Admin: 04/19/24 09:15 Dose: 5 mg Documented By: TOSIN Hydromorphone HCl (Hydromorphone Hcl 1 Mg/Ml Syringe) 1 mg IVPUSH Q4H PRN; Protocol PRN Reason: Pain, Severe (Pain Scale 7-10) Last Admin: 04/18/24 17:27 Dose: 1 mg Documented By: VARSHA Lorazepam (Lorazepam 2 Mg/Ml Vial) 2 mg IVPUSH ONCE PRN PRN Reason: Seizures Magnesium Oxide (Magnesium Oxide 400 Mg Tablet) 400 mg PO DAILY [facility] Last Admin: 04/19/24 08:19 Dose: 400 mg Documented By: TOSIN Multivitamins/Vitamin C (Multivitamin Tablet) 1 tab PO DAILY [facility] Last Admin: 04/19/24 08:19 Dose: 1 tab Documented By: TOSIN Pt Own (Cenobamate [ Xcopri] 200 Mg Tablet) 200 mg PO DAILY [facility] Last Admin: 04/19/24 09:15 Dose: 200 mg Documented By: TOSIN Pt Own ( Eslicarbazepine [ Aptiom] 600 Mg Tablet) 600 mg PO BEDTIME [facility] Last Admin: 04/18/24 21:11 Dose: 600 mg Documented By: JUAN DANIEL Pt Own ( Phenobarbital 64.8 Mg Tablet) 129.6 mg PO BEDTIME [facility] Last Admin: 04/18/24 21:10 Dose: 129.6 mg Documented By: JUAN DANIEL Oxycodone HCl (Oxycodone Hcl Immed Release 5 Mg Tablet) 5 mg PO Q6H PRN PRN Reason: Pain, Moderate(Pain Scale 4-6) Last Admin: 04/19/24 06:20 Dose: 5 mg Documented By: CONNOR Sodium Chloride (0.9 % Sodium Chloride Flush 3 Ml Syringe) [facility] Admin: 04/19/24 08:19 Dose: 3 ml Documented By: TOSIN Labs 04/19/24 06:46 04/19/24 06:46 Labs: Laboratory Results - last 24 hr 04/19/24 06:46 MCV 92.2 MCH 31.8 MCHC 34.4 RDW 14.4 Plt Count 201 MPV 10.2 Absolute Nucleated RBC 0.000 Nucleated RBC % (auto) 0.0 Anion Gap 14 Estim Creat Clear Calc 96.1 Estimated GFR > 60 Random Glucose 88 Calcium 9.2 Assessment and Plan (1) Tibia/fibula fracture, shaft: Status: Acute (2) Recurrent seizures: Status: Acute Plan Nanci Quijano is a 58 y/o woman with PMHx significant for seizures (s/p craniotomy -tumor removal) admitted with: Breakthrough Seizurewith hx of recalcitrant epilepsy failing meds combinations. Aspiration and seizures precautions. Continue home anti-seizures medications ; phenobarbital, Aptiom and Xcopri; clobazam Ativan 2 mg IV prn as needed for seizures. She has been recommended to use injury protection (helmet). Neurology input appreciated, use home medications and outpatient F\U w primary neurologist for Vagus nerve stimulator Right tib-fib comminuted fracture. POD 1 Pain control with Tylenol, morphine, oxycodone as needed. Orthopedic surgery following PT eval Head trauma + left eyebrow laceration no stitches required. Head CT scan is negative. Local care by nursing. acute Lactic acidosis, mild, secondary to seizures. No SIRS criteria or sings of infection Major depressive disorder. controlled on home medicaitons Hx of expressive aphasia. Delusional disorder. Taking haldol. DVT prophylaxis: Lovenox Code status: Full Patient will need hospitalization post orthopedic surgery pending pain control, PT and likely placement Quality Stroke Does the patient have a stroke diagnosis?: No VTE Prior VTE?: No VTE Risk Level:: Medical - moderate - high VTE Device Contraindication: Treatment Not Indicated VTE Drug Contraindication: N/A - Med Ordered
[2024-04-19] MEDS: cloBAZam 10 MG TABLET 25 MG PO (21:05)
[2024-04-19] MEDS: HaloperidoL 5 MG TABLET 10 MG PO (21:07)
[2024-04-19] MEDS: HYDROmorphone HCl 1 MG/ML SYRINGE IVPUSH (21:13)
[2024-04-20] VITALS (11 sets, daily range): BP systolic 91–135; BP diastolic 50–80; PULSE 82–105; RESP 16–20; TEMP 36.2–37.2; O2SAT 96–98
[2024-04-20] MEDS: Acetaminophen 325 MG TABLET 975 MG PO ×3 (00:22→17:42)
[2024-04-20] MEDS: Dicyclomine HCl 10 MG CAPSULE PO ×4 (08:54→20:43)
[2024-04-20] MEDS: cloBAZam 10 MG TABLET 5 MG PO (08:54)
[2024-04-20] MEDS: Magnesium Oxide 400 MG TABLET PO (08:54)
[2024-04-20] MEDS: Multivitamin TABLET 1 TAB PO (08:54)
[2024-04-20] MEDS: HYDROmorphone HCl 1 MG/ML SYRINGE IVPUSH ×2 (08:54→21:34)
[2024-04-20] MEDS: Gabapentin 300 MG CAPSULE PO ×2 (08:55→20:43)
[2024-04-20] MEDS: HaloperidoL 5 MG TABLET PO (08:55)
[2024-04-20 09:36] LABS: Hematocrit 24.7 % (37.0-47.0); Hemoglobin 8.3 g/dl (12.0-16.0); Mean Corpuscular HGB Conc 33.6 g/dl (31.0-35.0); Mean Corpuscular Hemoglobin 31.3 pg (27.0-33.0); Mean Corpuscular Volume 93.2 fL (80.0-98.0); Mean Platelet Volume 9.8 fL (9.4-12.3); Platelet Count 194 X10*3/uL (160-400); Red Blood Count 2.65 X10*6/uL (4.20-5.50); Red Cell Distribution Width 14.7 % (11.0-16.0); White Blood Count 6.4 X10*3/uL (4.8-10.8)
[2024-04-20 10:02] LABS: Anion Gap 14 (12-20); Blood Urea Nitrogen 11 mg/dL (9-16); Calcium 8.9 mg/dL (8.4-10.2); Carbon Dioxide 27 mmol/L (22-29); Chloride 98 mmol/L (96-108); Estimated Glomerular Filt Rate > 60; Glucose Random 122 mg/dL (60-115); Potassium 4.1 mmol/L (3.3-5.1); Sodium 135 mmol/L (135-145)
--- NOTE | 2024-04-20 10:51 | P.PNIM_ITS ---
Subjective Subjective Date of Service: 04/20/24 Interval History: seen and evaluated this morning no reported seizures overnight POD 2, pain under fair control Hb dropped to 8.3 No other overnight events Review of Systems Review of Systems: Yes all other systems are reviewed and are negative Physical Exam 2 Vital Signs: Vital Signs: Last Vital Signs Temp 97.2 F 04/20/24 07:03 Pulse 85 04/20/24 07:03 Resp 18 04/20/24 07:03 BP 118/55 L 04/20/24 07:03 Pulse Ox 97 04/20/24 07:03 O2 Del Method Room Air 04/20/24 07:03 BMI result Body Mass Index 30.8 Const: Other: Constitutional : Awake, interactive, not in distress Neck : Normal inspection, Supple Cardiovascular : RRR, no JVP, no lower extremity edema Respiratory : good bilateral air entry, no crackles, wheezes or rhonchi Gastrointestinal: soft, lax, Normal bowel sounds, Non tender Skin : Warm, Dry Extremities: RLE in dressing, good pulses bilaterally Neurological : Alert & oriented to self and place, No focal deficit Objective Data Active Medications Acetaminophen (Acetaminophen 325 Mg Tablet) 975 mg PO Q6H [facility] Last Admin: 04/20/24 05:44 Dose: Not Given Documented By: RAJ Non-Admin Reason: Patient Refused Clobazam (Clobazam 10 Mg Tablet) 5 mg PO DAILY [facility] Last Admin: 04/20/24 08:54 Dose: 5 mg Documented By: GERMAN Clobazam (Clobazam 10 Mg Tablet) 25 mg PO BEDTIME [facility] Last Admin: 04/19/24 21:05 Dose: 25 mg Documented By: RAJ Dicyclomine HCl (Dicyclomine Hcl 10 Mg Capsule) 10 mg PO QID [facility] Last Admin: 04/20/24 08:54 Dose: 10 mg Documented By: GERMAN Docusate Sodium (Docusate Sodium 100 Mg Capsule) 200 mg PO BEDTIME [facility] Last Admin: 04/19/24 21:08 Dose: Not Given Documented By: RAJ Non-Admin Reason: Patient Refused Enoxaparin Sodium (Enoxaparin Sodium 40 Mg/0.4 Ml Syringe) 40 mg SUBCUT Q24H [facility] Last Admin: 04/19/24 13:47 Dose: 40 mg Documented By: TOSIN Gabapentin (Gabapentin 300 Mg Capsule) 300 mg PO BID [facility] Last Admin: 04/20/24 08:55 Dose: 300 mg Documented By: GERMAN Haloperidol (Haloperidol 5 Mg Tablet) 10 mg PO BEDTIME [facility] Last Admin: 04/19/24 21:07 Dose: 10 mg Documented By: RAJ Haloperidol (Haloperidol 5 Mg Tablet) 5 mg PO DAILY [facility] Last Admin: 04/20/24 08:55 Dose: 5 mg Documented By: GERMAN Hydromorphone HCl (Hydromorphone Hcl 1 Mg/Ml Syringe) 1 mg IVPUSH Q4H PRN; Protocol PRN Reason: Pain, Severe (Pain Scale 7-10) Last Admin: 04/20/24 08:54 Dose: 1 mg Documented By: GERMAN Lorazepam (Lorazepam 2 Mg/Ml Vial) 2 mg IVPUSH ONCE PRN PRN Reason: Seizures Magnesium Oxide (Magnesium Oxide 400 Mg Tablet) 400 mg PO DAILY [facility] Last Admin: 04/20/24 08:54 Dose: 400 mg Documented By: GERMAN Multivitamins/Vitamin C (Multivitamin Tablet) 1 tab PO DAILY [facility] Last Admin: 04/20/24 08:54 Dose: 1 tab Documented By: GERMAN Pt Own (Cenobamate [ Xcopri] 200 Mg Tablet) 200 mg PO DAILY [facility] Last Admin: 04/20/24 10:18 Dose: 200 mg Documented By: GERMAN Pt Own ( Eslicarbazepine [ Aptiom] 600 Mg Tablet) 600 mg PO BEDTIME [facility] Last Admin: 04/19/24 21:07 Dose: 600 mg Documented By: RAJ Pt Own ( Phenobarbital 64.8 Mg Tablet) 129.6 mg PO BEDTIME [facility] Last Admin: 04/19/24 22:18 Dose: 129.6 mg Documented By: RAJ Oxycodone HCl (Oxycodone Hcl Immed Release 5 Mg Tablet) 5 mg PO Q6H PRN PRN Reason: Pain, Moderate(Pain Scale 4-6) Last Admin: 04/19/24 17:46 Dose: 5 mg Documented By: TOSIN Sodium Chloride (0.9 % Sodium Chloride Flush 3 Ml Syringe) 3 ml IVFLUSH QSHIFT [facility] Last Admin: 04/20/24 07:41 Dose: Not Given Documented By: GERMAN Non-Admin Reason: Previously Administered Labs 04/20/24 09:26 04/20/24 09:26 Labs: Laboratory Results - last 24 hr 04/20/24 09:26 MCV 93.2 MCH 31.3 MCHC 33.6 RDW 14.7 Plt Count 194 MPV 9.8 Absolute Nucleated RBC 0.000 Nucleated RBC % (auto) 0.0 Anion Gap 14 Estim Creat Clear Calc 105.0 Estimated GFR > 60 Random Glucose 122 H Calcium 8.9 Assessment and Plan (1) Recurrent seizures: Status: Acute (2) Fracture tibia/fibula: Status: Acute (3) Acute on chronic anemia: Status: Acute Plan Nanci Quijano is a 58 y/o woman with PMHx significant for seizures (s/p craniotomy -tumor removal) admitted with: Acute on chronic anemia Hb 8.3 Likely related to dilution and blood loss during surgery Transfuse if drops below 8 follow CBC Breakthrough Seizurewith hx of recalcitrant epilepsy failing meds combinations. Continue home anti-seizures medications ; phenobarbital, Aptiom and Xcopri; clobazam Ativan 2 mg IV prn as needed for seizures. She has been recommended to use injury protection (helmet). Neurology input appreciated, use home medications and outpatient F\U w primary neurologist for possible Vagus nerve stimulator Right tib-fib comminuted fracture. POD 2 Pain control with Tylenol, morphine, oxycodone as needed. Orthopedic surgery following PT eval rec [facility] Head trauma + left eyebrow laceration no stitches required. Head CT scan is negative. Local care by nursing. acute Lactic acidosis, mild, secondary to seizures. No SIRS criteria or sings of infection Major depressive disorder. controlled on home medicaitons Hx of expressive aphasia. Delusional disorder. Taking haldol. DVT prophylaxis: Lovenox Code status: Full Patient will need hospitalization post orthopedic surgery pending pain control, PT and likely placement monitoring blood levels for need of transfusion Quality Stroke Does the patient have a stroke diagnosis?: No VTE Prior VTE?: No VTE Risk Level:: Medical - moderate - high VTE Device Contraindication: Treatment Not Indicated VTE Drug Contraindication: N/A - Med Ordered
[2024-04-20] MEDS: Enoxaparin Sodium 40 MG/0.4 ML SYRINGE SUBCUT (14:32)
[2024-04-20 14:50] LABS: Hematocrit 21.5 % (37.0-47.0); Hemoglobin 7.4 g/dl (12.0-16.0); Mean Corpuscular HGB Conc 34.4 g/dl (31.0-35.0); Mean Corpuscular Hemoglobin 31.9 pg (27.0-33.0); Mean Corpuscular Volume 92.7 fL (80.0-98.0); PLT CLUMP 1; Red Blood Count 2.32 X10*6/uL (4.20-5.50); Red Cell Distribution Width 14.8 % (11.0-16.0)
[2024-04-20 15:17] LABS: White Blood Count 6.1 X10*3/uL (4.8-10.8)
[2024-04-20 15:18] LABS: Platelet Count 170 X10*3/uL (160-400)
[2024-04-20] MEDS: 0.9 % Sodium Chloride 1,000 ML 999 ML IV (15:41)
--- NOTE | 2024-04-20 15:47 | PC.NURSE ---
Pleasure Craft Sailor at bedside throughout the shift and during blood tx consent. MD informed of pt's BP, MD assessed pt at bedside. Per Md, administer bolus first then start blood. Pharmacy contacted this RN stated pt does not have enough meds from home and will need family to bring meds in. pt stated her daughter returns from [place], she will try to contact her tomorrow to lease picker meds from the pharmacy and drop them off to [facility] [place]
--- NOTE | 2024-04-20 18:08 | PM.PNORT ---
Subjective Subjective Date of Service: 04/20/24 Interval history: POD 2 s/p IMN right tib fib 04/18/24 No overnight events resting in bed Physical Exam Vital Signs: Vital Signs: Last Vital Signs Temp 98.5 F 04/20/24 14:50 Pulse 92 04/20/24 14:50 Resp 20 04/20/24 14:50 BP 91/52 L 04/20/24 14:50 Pulse Ox 96 04/20/24 14:50 O2 Del Method Room Air 04/20/24 14:50 BMI result Body Mass Index 30.8 Const: General: cooperative, healthy appearing and no acute distress Resp: Effort & Inspection: normal respiratory effort and able to speak in complete sentences Cardio: Rate: regular rate Peripheral pulses: Peripheral pulses 2+ throughout GI: Palpation (GI): Soft to palpation Skin: General skin exam: no rashes or lesions noted Extrem: Other: RLE incisions are clean, dry and intact Mild edema in the lower extremity, compartments are soft calf supple non tender She is able to dorsi flex and plantar flex the foot NVI. Procedures Date of Service Date of Service: 04/20/24 Progress Note: A&P Assessment and plan (1) Tibia/fibula fracture, shaft: Status: Acute Plan Pain mgmnt PT/OT WBAT with boot with walker-patient should wear boot while sleeping Elevate above heart level Lovenox for dvt ppx dispo pending PT/OT eval Time Spent With Patient Time: Total time managing care of this patient today ____ minutes. Quality Stroke Does the patient have a stroke diagnosis?: No VTE Prior VTE?: No VTE Risk Level:: Medical - moderate - high VTE Device Contraindication: Treatment Not Indicated VTE Drug Contraindication: N/A - Med Ordered
--- NOTE | 2024-04-20 18:33 | PC.NURSE ---
Liter bolus not able to infuse d/t IV placement. Bolus needs to be complete before hanging blood per MD. New IV placed by charge weigher in the L AC. Bolus was able to infuse and blood hung at 18:30. Patient tolerating well, vitals WNL.
[2024-04-20] MEDS: Docusate Sodium 100 MG CAPSULE 200 MG PO (20:43)
[2024-04-20] MEDS: HaloperidoL 5 MG TABLET 10 MG PO (20:44)
[2024-04-20] MEDS: cloBAZam 10 MG TABLET 25 MG PO (20:44)
[2024-04-21 01:12] VITALS: BP 142/68; PULSE 82; RESP 20; TEMP 36.9
[2024-04-21] MEDS: 0.9 % Sodium Chloride Flush 3 ML SYRINGE IVFLUSH ×2 (01:14→08:57)
[2024-04-21] MEDS: Acetaminophen 325 MG TABLET 975 MG PO ×3 (01:16→13:37)
[2024-04-21 03:12] VITALS: BP 121/58; PULSE 96; RESP 20; TEMP 36.6; O2SAT 98
[2024-04-21 07:40] VITALS: BP 119/60; PULSE 88; RESP 20; TEMP 36.6; O2SAT 96
[2024-04-21] MEDS: Dicyclomine HCl 10 MG CAPSULE PO ×2 (08:55→13:37)
[2024-04-21] MEDS: Gabapentin 300 MG CAPSULE PO (08:55)
[2024-04-21] MEDS: HaloperidoL 5 MG TABLET PO (08:55)
[2024-04-21] MEDS: Multivitamin TABLET 1 TAB PO (08:55)
[2024-04-21] MEDS: cloBAZam 10 MG TABLET 5 MG PO (08:56)
[2024-04-21] MEDS: Magnesium Oxide 400 MG TABLET PO (08:57)
[2024-04-21] MEDS: HYDROmorphone HCl 1 MG/ML SYRINGE IVPUSH ×2 (09:02→14:18)
[2024-04-21 09:38] LABS: Hematocrit 29.3 % (37.0-47.0); Hemoglobin 10.2 g/dl (12.0-16.0); Mean Corpuscular HGB Conc 34.8 g/dl (31.0-35.0); Mean Corpuscular Hemoglobin 31.7 pg (27.0-33.0); Mean Platelet Volume 9.7 fL (9.4-12.3); Platelet Count 176 X10*3/uL (160-400); Red Blood Count 3.22 X10*6/uL (4.20-5.50); Red Cell Distribution Width 15.8 % (11.0-16.0); White Blood Count 6.5 X10*3/uL (4.8-10.8)
[2024-04-21 09:53] LABS: Anion Gap 13 (12-20); Blood Urea Nitrogen 8 mg/dL (9-16); Calcium 8.8 mg/dL (8.4-10.2); Carbon Dioxide 26 mmol/L (22-29); Chloride 100 mmol/L (96-108); Creatinine Clr Calc Pharmacy 110.2; Estimated Glomerular Filt Rate > 60; Glucose Random 152 mg/dL (60-115); Potassium 3.7 mmol/L (3.3-5.1); Sodium 135 mmol/L (135-145)
[2024-04-21 10:31] VITALS: BP 119/60; PULSE 88; O2SAT 96
--- NOTE | 2024-04-21 10:49 | PM.PNORT ---
Subjective Subjective Date of Service: 04/21/24 Interval history: POD 3 s/p IMN right tib fib 04/18/24 No overnight events resting in bed Physical Exam Vital Signs: Vital Signs: Last Vital Signs Temp 97.9 F 04/21/24 07:40 Pulse 88 04/21/24 10:31 Resp 20 04/21/24 07:40 BP 119/60 04/21/24 10:31 Pulse Ox 96 04/21/24 10:31 O2 Del Method Room Air 04/21/24 07:40 BMI result Body Mass Index 30.8 Const: General: cooperative, healthy appearing and no acute distress Resp: Effort & Inspection: normal respiratory effort and able to speak in complete sentences Cardio: Rate: regular rate Peripheral pulses: Peripheral pulses 2+ throughout GI: Palpation (GI): Soft to palpation Skin: General skin exam: no rashes or lesions noted Extrem: Other: RLE incisions are clean, dry and intact Mild edema in the lower extremity, compartments are soft calf supple non tender She is able to dorsi flex and plantar flex the foot NVI. Procedures Date of Service Date of Service: 04/21/24 Progress Note: A&P Assessment and plan (1) Tibia/fibula fracture, shaft: Status: Acute Plan Pain mgmnt PT/OT WBAT with boot with walker-patient should wear boot while sleeping Elevate above heart level Lovenox for dvt ppx dispo pending PT/OT eval Time Spent With Patient Time: Total time managing care of this patient today ____ minutes. Quality Stroke Does the patient have a stroke diagnosis?: No VTE Prior VTE?: No VTE Risk Level:: Medical - moderate - high VTE Device Contraindication: Treatment Not Indicated VTE Drug Contraindication: N/A - Med Ordered
[2024-04-21 11:17] VITALS: BP 123/73; PULSE 73; RESP 20; TEMP 36.2; O2SAT 96
--- NOTE | 2024-04-21 12:15 | P.DS_ITS ---
DS: Providers Provider Date of Service: 04/21/24 Date of admission: 04/17/24 01:22 Primary care physician: Lara Rivas MD Consults: 04/17/24 01:26 Consult to Neurology Routine Consulting Provider: [facility] Reason for consultation: Seizures Has provider been notified: No Consult to Orthopedics Routine Consulting Provider: [facility] [place] [facility] Reason for consultation: Right tib fib comminuted fracture Has provider been notified: Yes DS: Diagnosis Discharge Diagnosis (1) Tibia/fibula fracture, shaft: Status: Acute DS: Summary Hospital Course Hospital Course: Admission note HPI Nanci Quijano is a 58 years old woman with past medical history significant for seizures (s/p craniotomy -tumor removal) was brought to the emergency department by EMS after she was found on the ground by the father of her kids after she sustained a fall due to seizures sustaining trauma to the right leg and head. EMS administered ketamine IV. HPI was obtained from the patient who was alert and oriented however, she seems to be a very vague historian. She is just complaining of right leg pain. Denied headache, acute visual disturbances, dizziness, focal weakness, nausea, vomiting, chest pain, shortness on breath or palpitations. She does not know the name of her seizures medications. She denied alcohol abuse, tobacco smoking or illicit drug us e.Chart review: On March 19 of this year the patient obtained prescription for phenobarbital, gabapentin, eslicarbazepine and cenobamate. Unclear to me if she is still taking Clobazam (last refill Oct 29, 24 -28 days supply). In the ED, she was found to have stable vital signs. Last blood pressure is 101/81 (max 167/80). Blood workup showed no leukocytosis. There is mild lactic acidosis of 2.3. There are no significant electrolyte imbalances. Renal function and LFTs are normal. Troponin is less than 2.7. Phenobarbital level is therapeutic. ED tx: Morphine 4 mg IV, Keppra 1.5 g IV, Dilaudid 2 mg (total) IV, NS 1 L bolus Hospital course - Breakthrough Seizure with hx of recalcitrant epilepsy failing meds combinations on admission. No recurrence of seizure as she was loaded with KEppra. Seen by NEurologist who recommended to Continue home anti-seizures medications ; phenobarbital, Aptiom and Xcopri; clobazam. he also suggested outpatient F\U w primary neurologist for possible Vagus nerve stimulator. The patient was kept on Ativan 2 mg IV prn as needed for seizures but did not have any recurrence seizures while inpatient. To continue same home medications upon discharge. She has been recommended to use injury protection (helmet). - Right tib-fib comminuted fracture. XR showed fractures Comminuted of the distal diaphysis of the tibia and fibula. Had IMN surgery on 04/18 by orthopedic team with good tolerance as pain was controlled with Tylenol, morphine, oxycodone as needed. as she was able to participate with PT who recommended SNF placement. She will need Gait training, isometric quad , ADLs, ROM of knee to tolerance---WBAT with boot with walker and to sleep with boot on. - Acute on chronic anemia Developed post op with Hb dropping to 7.4 requiring 2 units of PRBCs transfusion with good result as Hb improved to 10.4. - Head trauma + left eyebrow laceration, no stitches required. Head CT scan is negative. Local care by nursing. - acute Lactic acidosis, mild, resolved. secondary to seizures. - Major depressive disorder. controlled on home medicaitons - Hx of expressive aphasia. controlled on Haldol PO. Discharge plan Oxycodone as needed for pain Tylenol around the clock then as needed Ducosate to help with bowel movements Gait training, isometric quad , ADLs, ROM of knee to tolerance---WBAT with boot with walker sleep with boot on Continue lovenox x6 weeks Keep dressing clean,dry and intact-no showering or tub baths Follow up with Orthopedics in 2 weeks The patient will likely need less than 30 days of SNF stay. Time Attestation Discharge Coordination Time (in mins): 39 Quality: Safe Use of Opioids Does Pt have an Active Cancer Diagnosis on the Problem List?: No Quality: Stroke Does the patient have a stroke diagnosis?: No Physical Exam Vital Signs: Vital Signs: Last Vital Signs Temp 97.1 F 04/21/24 11:17 Pulse 73 04/21/24 11:17 Resp 20 04/21/24 11:17 BP 123/73 04/21/24 11:17 Pulse Ox 96 04/21/24 11:17 O2 Del Method Room Air 04/21/24 11:17 BMI result Body Mass Index 30.8 Const: Other: Constitutional : Awake, interactive, not in distress Neck : Normal inspection, Supple Cardiovascular : RRR, no JVP, no lower extremity edema Respiratory : good bilateral air entry, no crackles, wheezes or rhonchi Gastrointestinal: soft, lax, Normal bowel sounds, Non tender Skin : Warm, Dry Extremities: RLE in boot, good pulses bilaterally Neurological : Alert & oriented to self and place, No focal deficit DS: Data Data Completed and Pending Completed studies during hospitalization [Text1]: Procedures Repair Scalp Skin, External Approach (05/12/23) Labs on day of discharge: Laboratory Results - last 24 hr 04/18/24 04/20/24 04/21/24 11:11 14:36 09:10 WBC 6.1 6.5 RBC 2.32 L 3.22 L D Hgb 7.4 L 10.2 L D Hct 21.5 L 29.3 L D MCV 92.7 91.0 MCH 31.9 31.7 MCHC 34.4 34.8 RDW 14.8 15.8 Plt Count 170 176 MPV Not Reportable 9.7 Absolute Nucleated RBC 0.000 0.000 Nucleated RBC % (auto) 0.0 0.0 Sodium 135 Potassium 3.7 Chloride 100 Carbon Dioxide 26 Anion Gap 13 BUN 8 L Creatinine 0.61 Estim Creat Clear Calc 110.2 Estimated GFR > 60 Random Glucose 152 H Calcium 8.8 Blood Type A Negative Antibody Screen NEGATIVE Crossmatch See Detail Imaging Chest x-ray: Radiologist's impression: ITS Impressions Tibia/Fibula X-Ray 04/16/24 23:45 IMPRESSION: 1. Comminuted fractures of the distal diaphysis of the tibia and fibula. 2. Questionable fracture involving the posterior malleolus. Cervical Spine CT 04/16/24 23:49 IMPRESSION: No acute findings identified in the head or cervical spine. Chronic changes as noted above. Head CT 04/16/24 23:49 IMPRESSION: No acute findings identified in the head or cervical spine. Chronic changes as noted above. Discharge Plan Discharge Anticipated Discharge Date/Time: 04/21/24 12:08 Patient Disposition: [facility] SNF Discharge Diagnosis: Tibia fracture Seizure Referrals: D[facility] [Outside] - 1 Week Kayla Vaughn PA-C [Physician Bike Technician] - 2 Weeks (05/06/24 12:30 [facility] [place] Orth[facility] Surgeons Kayla Vaughn PA-C) Discharge Medications: New acetaminophen 325 mg Tablet 975 mg PO TIDWM Qty: 21 0RF docusate sodium 100 mg Capsule 200 mg PO BEDTIME Qty: 20 0RF oxycodone 5 mg Tablet 5 mg PO Q6H PRN (Reason: Pain, Moderate(Pain Scale 4-6)) Qty: 20 0RF Rx Instructions: Partial Fill upon patient request. enoxaparin 40 mg/0.4 mL Syringe 40 mg subcut Q24H 42 Days Qty: 16.8 0RF Continued dicyclomine 10 mg capsule 10 mg PO QID Qty: 360 4RF magnesium oxide 400 mg (241.3 mg magnesium) tablet 400 mg PO DAILY 90 Days Qty: 90 0RF Xcopri 200 mg tablet 200 mg PO DAILY phenobarbital 64.8 mg tablet 129.6 mg PO BEDTIME multivitamin Tablet 1 tab PO DAILY acetaminophen [Tylenol Extra Strength] 500 mg Tablet 500 mg PO Q6H PRN (Reason: Pain) cranberry 500 mg Capsule 500 mg PO DAILY Rx Instructions: administer with meals clobazam 10 mg Tablet 5 mg PO DAILY gabapentin 300 mg capsule 300 mg PO BID haloperidol 5 mg tablet 5 mg PO DAILY clobazam 10 mg Tablet 25 mg PO BEDTIME haloperidol 5 mg Tablet 10 mg PO BEDTIME Aptiom 600 mg tablet 600 mg PO BEDTIME pantoprazole [Protonix] 40 mg tablet,delayed release (DR/EC) 40 mg PO DAILY@0630 Discharge Orders: Discharge Order (Routine); Ordered 04/21/24 Ordered By: Luis Enrique Caldwell Diet: Advance to usual diet Activity on Discharge: As tolerated Stand Alone Forms: Patient Portal Discharge page Print Language: Wolof Care Plan Goals: Oxycodone as needed for pain Tylenol around the clock then as needed Ducosate to help with bowel movements Health Concerns: Read below Plan of Treatment: Gait training, isometric quad , ADLs, ROM of knee to tolerance---WBAT with boot with walker sleep with boot on Continue lovenox x6 weeks Keep dressing clean,dry and intact-no showering or tub baths Follow up with Orthopedics in 2 weeks Assessment: Read below
--- NOTE | 2024-04-21 13:23 | MHC.CM.PN ---
Second IMM 04/21. Pt is medically cleared for discharge to STR at [facility]. Pts daughter updated and in agreement with plan. Pt will transport via BLS/[facility] at 2pm.
[2024-04-21] MEDS: Enoxaparin Sodium 40 MG/0.4 ML SYRINGE SUBCUT (14:16)
--- NOTE | 2024-04-21 15:01 | PC.NURSE ---
pt alert and cooperative, vague and lacks insight. lungs CTA, abdomen s/nt +bsx4. Pt S+P to commode this morning for urine and lg soft BM. She c/o pain to R lower leg and was medicated with dilaudid and as per nov. Pt transferred to [facility] via EMS with all belongings and medications. She was medicated prior to transfer with dialaudid and was drowsy but easily rousable. VS as noted. Report called to Kayla at [facility] and all questions answered.
--- NOTE | 2024-04-22 10:43 | W.PM.OPN ---
Operative Note Operative Note Date of Service: 04/18/24 Narrative: Date of Service: 04/18/24 Pre-op diagnosis: Right tib fib fracture Post-op diagnosis: same Procedure: IMN right tib fib Implants: Levy alpha T2 360x11 IMN with 2 distal and two proximal interlocking screws Surgeon: Tru Muñiz MD Anesthesia: GETA and local Was an Financial Services Auditor used for this Procedure?: No Estimated blood loss (mL): 250 IV fluids (mL): 120 Pathology: none sent Condition: stable Disposition: PACU Procedure in detail: Patient was brought to the operating room and prepped and draped in standard sterile fashion. Time-out was called to identify proper site procedure proper surgeon and IV antibiotics per weight were administered. She was positioned on the fracture table and with a radiolucent triangle under the knee. I made a direct anterior incision through the skin and down to the patellar tendon from mid patella to tibial tubercle. The paratenon was incised and protected and a transpatellar approach to the tibia was utilized. A start site just medial to the lateral spine and distal to the articular surface on the lateral. A fguide wire was placed at this point and then over-reamed while the soft tissues were protected. I then placed a ball-tipped guidewire down the tibia. I then used manual traction, an esmarc to reduce the tibial shaft fracture. I then p[assed the guidewire into the distal tibia ( center/center) and then over reamed to a 13 and measured a 360 mm nail. A 360 x 11 nail was selected and inserted. I was satisfied with the hardware position and the fracture alignment on both the AP and lateral projections. Once I was satisfied with the alignment and the hardware position I placed 2 distyal interlocking screws from medial to lateral using perfect new [place] technique. I then placed two proximal screws using the guide and standard AO technique. Final radiographs were obtained and I was again satisfied with the alignment and the hardware position. I copiously irrigated closed with absorbable sutures jakub and injected 30 mL of into the area of the incisions. Traction was let down patient was placed in sterile dressing awakened from anesthesia brought to recovery room stable condition there were no known complications.
== END 2024-04-21 14:40 | disposition skilled nursing facility (03) | DRG 493 ==
LOC: HO.ED 04-17 01:06 → HO.EDOVER 04-17 01:26 → HO.IMC 04-17 14:12
PROVIDERS: Anesthesiology; Orthopaedic Surgery; Admitting Provider Internal Medicine; Emergency Provider Emergency Medicine; PCP Internal Medicine; Visit Provider Student in an Organized Health Care Education/Training Program
PROC: 0QHJ34Z Insertion of Internal Fixation Device into Right Fibula, Percutaneous Approach (ICD-10-PCS; principal; 2024-04-18 13:00)
DX: S82.391A Other fracture of lower end of right tibia, initial encounter for closed fracture (principal); D62 Acute posthemorrhagic anemia; E87.21 Acute metabolic acidosis; G40.919 Epilepsy, unspecified, intractable, without status epilepticus; F33.9 Major depressive disorder, recurrent, unspecified; S82.831A Other fracture of upper and lower end of right fibula, initial encounter for closed fracture; S01.112A Laceration without foreign body of left eyelid and periocular area, initial encounter; W19.XXXA Unspecified fall, initial encounter; F22 Delusional disorders; Z91.041 Radiographic dye allergy status; Z79.899 Other long term (current) drug therapy
CPT/HCPCS: 36415; 70450; 72125; 73590; 80048; 80076; 80184; 83605; 84484; 85025; 85027; 86850; 86900; 86901; 86923; 93005; 97162; 97166; 97530; 99285; C1713; J0736; J1100; J1170; J1644; J1650; J1885; J1953; J2250; J2371; J2405; J2704; J2795; J3010; J7120; P9016

== ENCOUNTER → 2024-04-16 23:19 | Outpatient (BNV) | payer MEDICARE, MEDICAID, SELFPAY | PROVIDERS: Admitting Provider Internal Medicine; Emergency Provider Emergency Medicine; Visit Provider Internal Medicine | DX: R56.9 Unspecified convulsions (principal) | CPT/HCPCS: 93010 ==

== ENCOUNTER → 2024-04-17 01:22 | Outpatient (BNV) | payer MEDICARE, MEDICAID, SELFPAY | PROVIDERS: Admitting Provider Internal Medicine; Emergency Provider Emergency Medicine; Visit Provider Physician Assistant | DX: S82.209A Unspecified fracture of shaft of unspecified tibia, initial encounter for closed fracture (principal); S82.409A Unspecified fracture of shaft of unspecified fibula, initial encounter for closed fracture | CPT/HCPCS: 27759; 99024; 99222; 99231 ==

== ENCOUNTER → 2024-04-17 01:22 | Outpatient (BNV) | payer MEDICARE, MEDICAID, SELFPAY | PROVIDERS: Admitting Provider Internal Medicine; Emergency Provider Emergency Medicine; Visit Provider Internal Medicine | DX: G40.909 Epilepsy, unspecified, not intractable, without status epilepticus (principal); S82.201A Unspecified fracture of shaft of right tibia, initial encounter for closed fracture; S82.401A Unspecified fracture of shaft of right fibula, initial encounter for closed fracture; D64.9 Anemia, unspecified | CPT/HCPCS: 99223; 99232; 99233; 99239; 99499 ==

== ENCOUNTER → 2024-04-17 01:22 | Outpatient (BNV) | payer MEDICARE, MEDICAID, SELFPAY | PROVIDERS: Admitting Provider Internal Medicine; Emergency Provider Emergency Medicine; Visit Provider Psychiatry & Neurology Neurology | DX: G40.909 Epilepsy, unspecified, not intractable, without status epilepticus (principal) | CPT/HCPCS: 99222 ==

== ENCOUNTER 2024-05-06 09:28 | Outpatient (REF) | payer MEDICARE, MEDICAID, SELFPAY ==
--- NOTE | ~2024-05-06 | XR_ITS ---
EXAMINATION: XR TIBIA AND FIBULA, RIGHT CLINICAL INFORMATION: Follow-up fracture COMPARISON: 04/16/2024 TECHNIQUE: AP and lateral views of the right tibia and fibula were obtained. FINDINGS: Redemonstration of comminuted fractures of the distal fibula and tibia. Interval placement of an intramedullary michael in the tibia with proximal and distal surgical screws, the most distal surgical screws tear traversing the tibiofibular syndesmosis. There is soft tissue swelling about the leg and surgical jakub at the level of the knee joint. XR/XR tibia fibula RT 2V IMPRESSION: Redemonstration of comminuted fractures of the distal fibula and tibia. Interval placement of an intramedullary michael in the tibia with proximal and distal surgical screws. Electronically signed by: Missy Koehler MD 06/03/2024 06:36 PM EDT
== END 2024-05-06 09:29 | disposition home or self-care (01) ==
LOC: HO.HOSX 09:28
PROVIDERS: Visit Provider Physician Assistant
DX: S82.201A Unspecified fracture of shaft of right tibia, initial encounter for closed fracture (principal); S82.401A Unspecified fracture of shaft of right fibula, initial encounter for closed fracture
CPT/HCPCS: 73590; 99212

== ENCOUNTER 2024-05-06 12:13 | Outpatient (AMB) | payer MEDICARE, MEDICAID, SELFPAY ==
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
== END 2024-05-06 14:02 | disposition home or self-care (01) ==
PROVIDERS: Visit Provider Physician Assistant
DX: S82.201A Unspecified fracture of shaft of right tibia, initial encounter for closed fracture (principal); S82.401A Unspecified fracture of shaft of right fibula, initial encounter for closed fracture
CPT/HCPCS: 99024

== ENCOUNTER 2024-05-12 10:10 | Outpatient (AMB) | payer MEDICARE, MEDICAID, SELFPAY ==
[2024-05-12 10:16] VITALS: BP 126/68
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
== END 2024-05-12 10:58 | disposition home or self-care (01) ==
PROVIDERS: PCP Internal Medicine; Visit Provider Internal Medicine
DX: R56.9 Unspecified convulsions (principal); F33.0 Major depressive disorder, recurrent, mild; Z09 Encounter for follow-up examination after completed treatment for conditions other than malignant neoplasm; S82.401A Unspecified fracture of shaft of right fibula, initial encounter for closed fracture; S82.201A Unspecified fracture of shaft of right tibia, initial encounter for closed fracture
CPT/HCPCS: 99214; G2211

== ENCOUNTER 2024-05-12 11:27 | Outpatient (REF) | payer MEDICARE, MEDICAID, SELFPAY | END 2024-05-12 11:28 | disposition home or self-care (01) | LOC: HO.HOSX 11:27 | PROVIDERS: Visit Provider Physician Assistant | DX: Z13.89 Encounter for screening for other disorder (principal) ==

== ENCOUNTER 2024-05-22 12:35 | Outpatient (REF) | payer MEDICARE, MEDICAID, SELFPAY ==
--- NOTE | ~2024-05-22 | XR_ITS ---
EXAMINATION: XR TIBIA AND FIBULA, RIGHT CLINICAL INFORMATION: Unspecified fracture of shaft of right tibia COMPARISON: 05/06/2024 TECHNIQUE: AP and lateral views of the right tibia and fibula were obtained. FINDINGS: Redemonstration of an intramedullary michael in the tibia with proximal and distal surgical screws traversing previously noted comminuted fracture of the distal tibia. Hardware appears intact. Diffuse soft tissue swelling. XR/XR tibia fibula RT 2V IMPRESSION: Redemonstration of an intramedullary michael in the tibia with proximal and distal surgical screws traversing previously noted comminuted fracture of the distal tibia. Hardware appears intact. Diffuse soft tissue swelling. Electronically signed by: Windy Walters MD 06/11/2024 10:30 AM EDT
== END 2024-05-22 12:36 | disposition home or self-care (01) ==
LOC: HO.HOSX 12:35
PROVIDERS: PCP Internal Medicine; Visit Provider Physician Assistant
DX: S82.201D Unspecified fracture of shaft of right tibia, subsequent encounter for closed fracture with routine healing (principal); S82.401D Unspecified fracture of shaft of right fibula, subsequent encounter for closed fracture with routine healing; Z98.890 Other specified postprocedural states
CPT/HCPCS: 73590; 99212

== ENCOUNTER 2024-05-22 13:23 | Outpatient (AMB) | payer MEDICARE, MEDICAID, SELFPAY ==
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
== END 2024-05-22 14:30 | disposition home or self-care (01) ==
PROVIDERS: PCP Internal Medicine; Visit Provider Physician Assistant
DX: S82.201A Unspecified fracture of shaft of right tibia, initial encounter for closed fracture (principal); S82.401A Unspecified fracture of shaft of right fibula, initial encounter for closed fracture
CPT/HCPCS: 99024

== ENCOUNTER → 2024-05-27 23:59 | Outpatient (BNV) | payer MEDICARE, MEDICAID, SELFPAY | PROVIDERS: PCP Internal Medicine; Visit Provider Internal Medicine | DX: S82.201D Unspecified fracture of shaft of right tibia, subsequent encounter for closed fracture with routine healing (principal); S82.401D Unspecified fracture of shaft of right fibula, subsequent encounter for closed fracture with routine healing; G40.909 Epilepsy, unspecified, not intractable, without status epilepticus; F22 Delusional disorders | CPT/HCPCS: G0180 ==

== ENCOUNTER 2024-05-28 10:24 | Emergency (ER) | payer MEDICARE, MEDICAID, SELFPAY ==
--- NOTE | ~2024-05-28 | CT_ITS ---
EXAMINATION: CT CHEST WITHOUT CONTRAST CLINICAL INFORMATION: Pain after chest trauma COMPARISON: CT abdomen and pelvis same date TECHNIQUE: Multidetector volumetric CT imaging of the chest was done. Axial MIP volume rendering provided. Sagittal and coronal reformatted images were obtained. This CT examination was performed using dose optimization techniques as appropriate, variously including the following: *Automated exposure control *Adjustment of mA and/or kV according to patient size (this includes techniques or standardized protocols for targeted exams where dose is matched to indication/reason for exam; i.e. extremities or head) *Use of iterative reconstruction technique DLP: 325 mGy-cm FINDINGS: GIS MANAGER: Unremarkable LUNGS: The lungs are clear with no evidence of inflammation or nodules. MEDIASTINUM: Heart size borderline. No pericardial effusion. No significant adenopathy. CORONARY ARTERY CALCIFICATION: Minor PLEURA: There is no pleural effusion. No pleural mass or thickening. AXILLA: No lymphadenopathy. UPPER ABDOMEN: Punctate calcification in the spleen. Previously noted gallstones are not apparent on this chest CT. OSSEOUS STRUCTURES: No fracture CT/CT chest wo IV con IMPRESSION: No active disease. Fleischner guidelines were followed. Electronically signed by: Doug Tavarez MD 05/28/2024 03:33 PM EDT
--- NOTE | ~2024-05-28 | CT_ITS ---
EXAMINATION: CT CERVICAL SPINE WITHOUT CONTRAST CLINICAL INFORMATION: Seizure, altered mental status, mechanical fall, neck injury and pain COMPARISON: None available. TECHNIQUE: Multiple 0.6 and 30 mm axial images were obtained from base of skull to T1 levels without IV contrast enhancement. Sagittal and coronal 2.0 mm bone window images were reconstructed from axial image data. This CT examination was performed using dose optimization techniques as appropriate, variously including the following: *Automated exposure control *Adjustment of mA and/or kV according to patient size (this includes techniques or standardized protocols for targeted exams where dose is matched to indication/reason for exam; i.e. extremities or head) *Use of iterative reconstruction technique DLP: 321.01 mGy-cm FINDINGS: C1/C2: Bony structures are intact with normal alignment. There is no spinal stenosis. C2/C3: Bony structures are intact with normal alignment. There is no spinal stenosis. Bilateral C2/C3 neuroforamina are patent. Bilateral apophyseal joints are intact with normal alignment. C3/C4: Bony structures are intact with normal alignment. There is no spinal stenosis. Bilateral C3/C4 neuroforamina are patent. Bilateral apophyseal joints are intact with normal alignment. C4/C5: Bony structures are intact with normal alignment. Large sharp anterior bridging syndesmophytes are present. There is no spinal stenosis. Bilateral C4/C5 neuroforamina are patent. Bilateral apophyseal joints are intact with normal alignment. C5/C6: Bony structures are intact with normal alignment. Large sharp anterior and lateral bridging syndesmophytes are present. There is no spinal stenosis. Bilateral C5/C6 neuroforamina are patent. Bilateral apophyseal joints are intact with normal alignment. C6/C7: Bony structures are intact with normal alignment. Prominent superior C7 vertebral endplate Schmorl's node is seen. Sharp anterior and lateral syndesmophytes are present. There is no spinal stenosis. Bilateral C6/C7 neuroforamina are patent. Bilateral apophyseal joints are intact with normal alignment. C7/T1: Bony structures are intact with normal alignment. Sharp anterior superior T1 syndesmophyte is present. There is no spinal stenosis. Bilateral C7/T1 neuroforamina are patent. Bilateral apophyseal joints are intact with normal alignment. A persistent metallic device is seen at C6 level anteriorly and medial to the left internal jugular vein, with electric wire passing along the left subcutaneous tissue. CT/CT cervical spine wo IV con IMPRESSION: 1. No evidence of acute fracture or dislocation of the cervical spine. 2. Unchanged Large sharp anterior and lateral bridging syndesmophytes are present at C4/C5, C5/C6, C6/C7 and T1 levels. 3. Unchanged Prominent superior C7 vertebral endplate Schmorl's node is seen. 4. A persistent metallic device is seen at C6 level anteriorly and medial to the left internal jugular vein, with an electronic wire passing along the left subcutaneous tissue. Fleischner guidelines were followed. Electronically signed by: Jennifer Sterling MD 05/28/2024 02:41 PM EDT
--- NOTE | ~2024-05-28 | CT_ITS ---
EXAMINATION: CT HEAD WITHOUT CONTRAST CLINICAL INFORMATION: Seizure, altered mental status, mechanical fall, head injury COMPARISON: CT scan of brain on 04/16/2024 TECHNIQUE: Contiguous axial imaging was performed from the skull base to vertex without intravenous administration of contrast. This CT examination was performed using dose optimization techniques as appropriate, variously including the following: *Automated exposure control *Adjustment of mA and/or kV according to patient size (this includes techniques or standardized protocols for targeted exams where dose is matched to indication/reason for exam; i.e. extremities or head) *Use of iterative reconstruction technique DLP: 680.33 mGy-cm FINDINGS: Persistent superior left parietal cystic encephalomalacia is present, associated with asymmetric dilatation of left lateral ventricle and ventricular trigone. The rest of the left parietal occipital lobe subcortical and deep white matter shows confluent decrease in attenuation. Ventricles, sulci and cisterns are otherwise normal. There is no midline shift, no abnormal intra- or extra- axial fluid accumulation. Vasquez and white matter differentiation is normal. Extensive right frontoparietal subcutaneous crescent shaped acute hematoma is seen measuring up to 0.8 cm in thickness. Bone window images show no evidence of skull fracture. There is diffuse thickening of calvarium. Left parietal craniotomy bone flap, fixed with metallic plates is seen. CT/CT head/brain wo IV con IMPRESSION: 1. No evidence of intracranial hemorrhage, mass effect, midline shift, or displaced calvarial fracture. 2. Interval development of Extensive right frontoparietal subcutaneous crescent shaped acute hematoma is seen measuring up to 0.8 cm in thickness. 3. Persistent superior left parietal cystic encephalomalacia is present, associated with asymmetric dilatation of left lateral ventricle and ventricular trigone. 4. Unchanged status post Left parietal craniotomy. Electronically signed by: Jennifer Sterling MD 05/28/2024 02:23 PM EDT
--- NOTE | ~2024-05-28 | CT_ITS ---
EXAMINATION: CT ABDOMEN AND PELVIS WITHOUT CONTRAST CLINICAL INFORMATION: Pain after falling COMPARISON: None available. TECHNIQUE: Multidetector volumetric imaging was performed from the superior aspect of the liver through the pubic symphysis. Sagittal and coronal reformatted images were obtained on the technologist's workstation. This CT examination was performed using dose optimization techniques as appropriate, variously including the following: *Automated exposure control *Adjustment of mA and/or kV according to patient size (this includes techniques or standardized protocols for targeted exams where dose is matched to indication/reason for exam; i.e. extremities or head) *Use of iterative reconstruction technique DLP: 1103 mGy-cm FINDINGS: LUNG BASES: Minor atelectasis at the left lung base. No pleural effusions. LIVER, GALLBLADDER, AND BILIARY TREE: The liver is normal in size, shape, and attenuation. No focal hepatic lesion or biliary ductal dilatation is present. Prominent gallstone in the gallbladder measuring 19 mm. No adjacent inflammatory change. PANCREAS: Unremarkable. SPLEEN: Small cysts are seen related to the spleen for which no further workup is needed, the largest measuring approximately 15 mm. No perisplenic collection or areas of hemorrhage. ADRENAL GLANDS: Unremarkable. KIDNEYS AND URETERS: The kidneys are normal in size, shape, and attenuation. No hydronephrosis, hydroureter, or calculi seen. No perinephric stranding. BLADDER: Unremarkable. GASTROINTESTINAL TRACT: The small and large bowel are unremarkable. The appendix is unremarkable. ABDOMINAL WALL: No significant hernia is appreciated. LYMPH NODES: Normal. VASCULAR: There are atherosclerotic but nonaneurysmal. PELVIC VISCERA: Unremarkable. OSSEOUS STRUCTURES: Mild superior endplate deformity T12. CT/CT abdomen pelvis wo IV con IMPRESSION: Gallstone. No evidence for intra-abdominal hemorrhage. Fleischner guidelines were followed. Electronically signed by: Doug Tavarez MD 05/28/2024 03:30 PM EDT
--- NOTE | ~2024-05-28 | CT_ITS ---
EXAMINATION: CT FACIAL BONES WITHOUT CONTRAST CLINICAL INFORMATION: Seizure, altered mental status, mechanical fall, facial injury COMPARISON: CT scan of facial bones on 07/05/2021 TECHNIQUE: Multiple 1.5 and 3 mm axial images of the facial bones were obtained without IV contrast enhancement. Bone window and soft tissue window images were reconstructed. Coronal and sagittal images of facial bones were reconstructed from axial image data. This CT examination was performed using dose optimization techniques as appropriate, variously including the following: *Automated exposure control *Adjustment of mA and/or kV according to patient size (this includes techniques or standardized protocols for targeted exams where dose is matched to indication/reason for exam; i.e. extremities or head) *Use of iterative reconstruction technique DLP: 332.25 mGy-cm FINDINGS: The visualized facial bones including bilateral zygomatic arches, bony orbits, pterygoid plates, mandibular rami and body of mandible are intact. Nasal bones are intact. Nasal septum shows deviation to the right by 0.6 cm with formation of a bony spur. Mild mucosal thickening is seen at the floor of right maxillary sinus. Bilateral ostiomeatal complexes are patent. Moderate mucosal thickening is seen at the floor of right mid ethmoid air cell. The left ethmoid sinus is clear. Bilateral sphenoid sinuses and frontal sinuses are clear. CT/CT facial bones wo IV con IMPRESSION: 1. Unchanged, No evidence of facial bone fracture. 2. Interval decrease in mild right maxillary sinus floor mucosal thickening. 3. Persistent prominent basal septum deviation to the right with a bony spur. Electronically signed by: Jennifer Sterling MD 05/28/2024 02:32 PM EDT
[2024-05-28 10:28] VITALS: BP 145/65; PULSE 77; O2SAT 96
[2024-05-28 10:31] VITALS: BP 122/68; PULSE 78; RESP 16; TEMP 36.6; O2SAT 100; BMI 28.3
--- NOTE | 2024-05-28 10:31 | ECG_ITS ---
Test Reason : FALL Blood Pressure : / mmHG Vent. Rate : 077 BPM Atrial Rate : 077 BPM P-R Int : 168 ms QRS Dur : 072 ms QT Int : 342 ms P-R-T Axes : 006 040 036 degrees QTc Int : 387 ms Normal sinus rhythm Normal ECG When compared with ECG of 16-APR-2024 23:49, No significant change was found Referred By: Kashif Pina Electronically Signed By:MARTA CESAR
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
[2024-05-28] MEDS: LORazepam 2 MG/ML VIAL IVPUSH (10:58)
[2024-05-28 11:00] LABS: MANUAL DIFF FLAG NO
[2024-05-28 11:05] LABS: Basophils Absolute Auto 0.1 X10*3/uL (0.0-0.2); Basophils Percent Auto 0.6 % (0-2); Eosinophils Percent Auto 0.2 % (0-4); Hematocrit 34.2 % (37.0-47.0); Hemoglobin 11.6 g/dl (12.0-16.0); Imm Gran Abs Auto 0.15 X10*3/uL (0.00-0.03); Imm Gran Pct Auto 1.5 % (0.0-0.4); Lymphocytes Absolute Auto 0.7 X10*3/uL (1.2-4.9); Lymphocytes Percent Auto 7.4 % (20-40); Mean Corpuscular HGB Conc 33.9 g/dl (31.0-35.0); Mean Corpuscular Hemoglobin 32.4 pg (27.0-33.0); Mean Corpuscular Volume 95.5 fL (80.0-98.0); Mean Platelet Volume 8.7 fL (9.4-12.3); Monocytes Absolute Auto 0.8 X10*3/uL (0.1-1.2); Monocytes Percent Auto 7.5 % (2-11); Neutrophils Absolute Auto 8.2 x10*3/uL (2.0-8.3); Neutrophils Percent Auto 82.8 % (45-73); Platelet Count 329 X10*3/uL (160-400); Red Blood Count 3.58 X10*6/uL (4.20-5.50); Red Cell Distribution Width 14.7 % (11.0-16.0); White Blood Count 9.9 X10*3/uL (4.8-10.8)
[2024-05-28 11:19] LABS: Alanine Aminotransferase 57 U/L (0-31); Albumin Level 4.1 g/dL (3.5-5.0); Alkaline Phosphatase 122 U/L (39-117); Anion Gap 12 (12-20); Aspartate Amino Transferase 58 U/L (5-31); Bilirubin Total 0.2 mg/dL (0.0-1.0); Blood Urea Nitrogen 9 mg/dL (9-16); Calcium 9.9 mg/dL (8.4-10.2); Carbon Dioxide 30 mmol/L (22-29); Chloride 98 mmol/L (96-108); Creatinine Clr Calc Pharmacy 100.6; Estimated Glomerular Filt Rate > 60; Glucose Random 89 mg/dL (60-115); Magnesium 1.9 mg/dL (1.6-2.6); Potassium 4.5 mmol/L (3.3-5.1); Sodium 135 mmol/L (135-145); Total Protein 7.8 g/dL (6.5-8.0)
[2024-05-28 11:51] LABS: COVID-19 Test Negative (Negative); IDNOW Serial# 152EDE1D
[2024-05-28 12:52] VITALS: BP 142/75; PULSE 85; RESP 14; O2SAT 98
[2024-05-28 14:42] VITALS: BP 127/59; PULSE 88; RESP 13; O2SAT 100
--- NOTE | 2024-05-28 14:50 | PC.NURSE ---
patient removed own collar
--- NOTE | 2024-05-28 15:57 | PC.NURSE ---
call placed to daughter, Hamida concerning discharge. states that she does not feel safe bringing her mother home with the frequency of her falls as of late. requesting further help whether at home or potential placement for her mother. provider aware, to become pt/cm.
[2024-05-28 17:55] VITALS: BP 118/60; PULSE 72; RESP 16; TEMP 36.8; O2SAT 97
--- NOTE | 2024-05-28 18:40 | PC.NURSE ---
Seizure pads in place
[2024-05-28 19:40] VITALS: BP 122/66; PULSE 87; RESP 16; TEMP 36.9; O2SAT 97
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
[2024-05-29 00:02] LABS: Appearance Urine Turbid; Color Urine Yellow; Glucose Urine UA Negative (Negative); Leukocyte Esterase Urine Trace (Negative); Nitrite Urine Negative (Negative); PH 8.5 (5.0-9.0); Specific Gravity - Urine 1.015 (1.005-1.025); UMIC TRIGGER UACC YES; Urine Blood Negative (Negative); Urine Ketones Negative (Negative); Urine Protein Negative (Neg-Trace)
[2024-05-29 00:08] LABS: Bacteria Urine None Seen (None Seen); Hyaline Casts Urine 0-2 /LPF (0-2); RBC Urine 0-2 /HPF (0-2); Squamous Epithelial Cell Urine 0-2 /HPF (0-2); WBC Urine 0-5 /HPF (0-5)
[2024-05-29 06:03] VITALS: BP 124/71; PULSE 72; RESP 16; TEMP 36.6; O2SAT 97
--- NOTE | 2024-05-29 06:39 | MHC.EDTECH ---
Patient slept all night up to use bedside commode ,void ,and was assisted back to bed,vitals taken ,All safety measure in Place .
--- NOTE | 2024-05-29 11:04 | MHC.CM.ED ---
Patient remains in ER overflow. Physical therapy eval completed. No skill indicated. Spoke with patient's daughter, Hamida, via telephone at [phone]. Physical therapy eval explained. Hamida doesn't feel patient is safe at home. Feels patient doesn't participate in physical therapy at home. Feels patient doesn't remember having surgery. Psych consult ordered by Nancy DORANTES to evaluate for capacity. Hamida aware. Continue to monitor for d/c needs.
--- NOTE | 2024-05-29 12:59 | PHA.MEDREC ---
Addendum entered by Thad Maradiaga [facility] 05/29/24 13:33: Med rec reviewed by [facility] Addendum entered by Basia Flores 05/29/24 13:19: Spoke to patient daughter and she confirmed her mom ran out of Xcopri 200mg and she takes it once daily. The daughter confirmed her mom ran out of this medication on Sunday, she states she tried contacting her moms provider but never got through for more refills. Original Note: Pharmacy Consult ? Medication Reconciliation Pharmacy has completed the medication reconciliation. Confirmed medications with patient daughter at bedside. the daughter confirmed her moms medications and was able to confirm the dosing of her Clobazam which she takes 5mg in the morning and 25 mg at bedtime. The daughter states her mom is also taking Dicyclomine and originally she was doing it 10mg QID but patient states her mom is taking 2 10mg tabs BID since its easier for her mom to take it. The daughter also confirmed her Haloperidol dosing, she does 5mg in the AM and 10mg at bedtime. The daughter confirmed the Phenobarbital 64.80 mg and she states her mom is taking 2 tabs at bedtime. The daughter states she last took the medication yesterday morning and never got to take any of her night medications.
[2024-05-29 14:17] VITALS: BP 141/76; PULSE 90; RESP 17; O2SAT 100
[2024-05-29] MEDS: Enoxaparin Sodium 40 MG/0.4 ML SYRINGE SUBCUT (16:20)
--- NOTE | 2024-05-29 18:46 | MHC.CM.ED ---
Addendum entered by Shawna Novoa 05/29/24 18:57: RIFLE CASE REPAIRER will orange picking supervisor patient tomorrow at 10 am. Will d/c to home. Daughter now feels patient will be safe at home. CM enc daughter to return to ED if any concerns. Original Note: Per pediatric neuropsychologist Fidelina Anand, patient does NOT have capacity to make medical decisions and feels that the HCP should be invoked. Cecy DORANTES and Dr. Barber aware. CM called and spoke with Hamida Jackson, daughter and HCP. CM made her aware of the invoked HCP and that her mother cannot make mdical decisions. Hamida tells CM that she just spoke with her mother's neurologist Dr. Cordero at [facility] in [place]. Her plan is to have more testing for her increased seizure activity and possible surgery, as the medications are not controlling her seizures. Hamida would like to pursue that option. She is no longer interested in LTC at this time. She is requesting discharge tomorrow, so she can arrange a ride home for her mother. Pt is active with [facility]. CM will notify them via [facility] of patient's discharge home tomorrow. RIFLE CASE REPAIRER has 45 hours and is aware that patient will be discharged tomorrow. Provider is aware. Primary RN aware.
--- NOTE | 2024-05-29 20:37 | PC.NURSE ---
patient alert and cooperative, L leg remains in boot. bed alarm on for safety. MD aware med rec completed and orders placed for next dose. Meds from home just brought in from home by daughter and in verification process. no s/s seizure activity today. precautions maintianed.
--- NOTE | 2024-05-29 20:50 | P.CNPS_ITS ---
History of Present Illness Date of Service: 05/29/2024 Chief Complaint: UNWIT FALL IN BR,HIT HEAD,ALTERED,?SZ PER EMS Reason for Consult: capacity Discussed with referring provider: Yes Sources of Information: patient interviewed, chart reviewed and crisis/core team assessment reviewed HPI Narrative: Mrs. Dee is a 58 year-old woman with hx of severe, tx resistant seizure disorder which has caused complex neuropsychiatric symptoms including paranoid delusions and cognitive/memory problems. She is known to this check writer and [facility] psych units through previous admission for paranoid delusions. Psych asked to complete capacity assessment. Pt seen in ED. Pt presents as pleasant. She is able to state that she is in the hospital, but not sure why. She does not know the month or the year. She is not able to provide information as to recommendations after fracture she sustained on right leg. She thought content is limited and poverty of thought. She is not able to tell medications she is on. She does know she has a seizure disorder. Past Psychiatric History: -Pt has OP psych services at [facility], provider is Benji Valdivia. -Per daughter pt?s VH and paranoia started after her second brain surgery in 2018 for epilepsy. She has also had issues with word retrieval, aphasia. -Hx of multiple IPLOC, last at [facility] and [facility] in 10/2021, [facility] M5 2018. and 2021 She has presented to crisis due to altered mental status, depression, and psychotic symptoms i.e. paranoia, delusions, disorganized thinking, A/VH, aggression, and confusion. 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 with vagal nerve stimulator implanted 2014 and in 2018 had surgery to remove scar tissues around it [facility] Medical History (Updated 05/31/24 @ 00:00 by Background Daemon) Delusional disorder Epilepsy Fracture of T12 vertebra Psychosis Recurrent seizures Hypomagnesemia Burn injury Epilepsy Urinary incontinence IBS (irritable bowel syndrome) Overactive bladder Class 1 obesity due to excess calories with body mass index (BMI) of 30.0 to 30.9 in adult Mild recurrent major depression Gait instability Polyarthralgia Depression Urge urinary incontinence Screening for cervical cancer Pre-op examination Pre-op evaluation Unsteady gait Expressive aphasia Hyponatremia Encephalomalacia GERD (gastroesophageal reflux disease) Hypotension Seizures Surgical History History of tumor H/O prior ablation treatment History of skin graft History of tubal ligation Surgical history unknown Social History: -Her daughter, Hamida, is her healthcare proxy. -Supports include her two daughters, her QUALITY CONTROL MICROBIOLOGIST (Nguyen, who is also her niece), and the father of her children Lives with daughter and the father of her children Trauma History: denies Diagnostics Vital Signs (24Hr): Vital Signs - 24 hr 05/29/24 06:03 05/29/24 14:17 Temperature 97.9 F Pulse Rate 72 90 Respiratory Rate 16 17 Blood Pressure 124/71 141/76 H Pulse Oximetry 97 100 Oxygen Delivery Method Room Air Room Air BMI result Body Mass Index 28.3 Labs 05/28/24 10:52 05/28/24 10:52 Labs: Laboratory Results - last 48 hr 05/28/24 05/28/24 05/28/24 10:52 10:54 15:29 WBC 9.9 RBC 3.58 L Hgb 11.6 L Hct 34.2 L MCV 95.5 MCH 32.4 MCHC 33.9 RDW 14.7 Plt Count 329 D MPV 8.7 L Immature Gran % (Auto) 1.5 H Neut % (Auto) 82.8 H Lymph % (Auto) 7.4 L Gila % (Auto) 7.5 Eos % (Auto) 0.2 Baso % (Auto) 0.6 Lymph # (Auto) 0.7 L Gila # (Auto) 0.8 Eos # (Auto) 0.0 Baso # (Auto) 0.1 Abs Immat Gran (auto) 0.15 H Absolute Neuts (auto) 8.2 Absolute Nucleated RBC 0.000 Nucleated RBC % (auto) 0.0 Hold Blue Top SEE NOTE Sodium 135 Potassium 4.5 D Chloride 98 Carbon Dioxide 30 H Anion Gap 12 BUN 9 Creatinine 0.71 Estim Creat Clear Calc 100.6 Estimated GFR > 60 Random Glucose 89 Calcium 9.9 D Magnesium 1.9 Total Bilirubin 0.2 AST 58 H ALT 57 H Alkaline Phosphatase 122 H Troponin I High Sens 7.0 D Cancelled Total Protein 7.8 Albumin 4.1 Urine Color Urine Appearance Urine pH Ur Specific [place] Urine Protein Urine Glucose (UA) Urine Ketones Urine Blood Urine Nitrite Ur Leukocyte Esterase Urine RBC Urine WBC Ur Squamous Epith Cells Urine Bacteria Hyaline Casts COVID-19 (MICHELLE) Negative COVID-19 Clin Com See Note 05/28/24 23:55 WBC RBC Hgb Hct MCV MCH MCHC RDW Plt Count MPV Immature Gran % (Auto) Neut % (Auto) Lymph % (Auto) Gila % (Auto) Eos % (Auto) Baso % (Auto) Lymph # (Auto) Gila # (Auto) Eos # (Auto) Baso # (Auto) Abs Immat Gran (auto) Absolute Neuts (auto) Absolute Nucleated RBC Nucleated RBC % (auto) Hold Blue Top Sodium Potassium Chloride Carbon Dioxide Anion Gap BUN Creatinine Estim Creat Clear Calc Estimated GFR Random Glucose Calcium Magnesium Total Bilirubin AST ALT Alkaline Phosphatase Troponin I High Sens Total Protein Albumin Urine Color Yellow Urine Appearance Turbid Urine pH 8.5 Ur Specific [place] 1.015 Urine Protein Negative Urine Glucose (UA) Negative Urine Ketones Negative Urine Blood Negative Urine Nitrite Negative Ur Leukocyte Esterase Trace H Urine RBC 0-2 Urine WBC 0-5 Ur Squamous Epith Cells 0-2 Urine Bacteria None Seen Hyaline Casts 0-2 COVID-19 (MICHELLE) COVID-19 Clin Com Imaging Radiology Impressions: ITS Impressions Chest CT 05/28/24 10:30 IMPRESSION: No active disease. Fleischner guidelines were followed. Electronically signed by: Doug Tavarez MD 05/28/2024 03:33 PM EDT RP Cervical Spine CT 05/28/24 11:07 IMPRESSION: 1. No evidence of acute fracture or dislocation of the cervical spine. 2. Unchanged Large sharp anterior and lateral bridging syndesmophytes are present at C4/C5, C5/C6, C6/C7 and T1 levels. 3. Unchanged Prominent superior C7 vertebral endplate Schmorl's node is seen. 4. A persistent metallic device is seen at C6 level anteriorly and medial to the left internal jugular vein, with an electronic wire passing along the left subcutaneous tissue. Fleischner guidelines were followed. Electronically signed by: Jennifer Sterling MD 05/28/2024 02:41 PM EDT RP Abdomen/Pelvis CT 05/28/24 11:11 IMPRESSION: Gallstone. No evidence for intra-abdominal hemorrhage. Fleischner guidelines were followed. Electronically signed by: Doug Tavarez MD 05/28/2024 03:30 PM EDT RP Face CT 05/28/24 11:39 IMPRESSION: 1. Unchanged, No evidence of facial bone fracture. 2. Interval decrease in mild right maxillary sinus floor mucosal thickening. 3. Persistent prominent basal septum deviation to the right with a bony spur. Electronically signed by: Jennifer Sterling MD 05/28/2024 02:32 PM EDT RP Head CT 05/28/24 11:39 IMPRESSION: 1. No evidence of intracranial hemorrhage, mass effect, midline shift, or displaced calvarial fracture. 2. Interval development of Extensive right frontoparietal subcutaneous crescent shaped acute hematoma is seen measuring up to 0.8 cm in thickness. 3. Persistent superior left parietal cystic encephalomalacia is present, associated with asymmetric dilatation of left lateral ventricle and ventricular trigone. 4. Unchanged status post Left parietal craniotomy. Electronically signed by: Jennifer Sterling MD 05/28/2024 02:23 PM EDT RP Mental Status Exam Mental Status Exam Narrative: Appearance: wearing hospital gown, fair hygiene, in NAD Behavior: cooperative Psychomotor: no agitation or retardation noted Speech: mumbles at times, some delayed in retrieval of words, spontaneous TP: derailment TC: feeling okay Mood: okay Affect: congruent SI: denies HI: denies VH/AH: no overt signs Delusions: no overt delusional content reported Insight/judgment: impaired x 2. memory/cog: alert, oriented to place, but not to month, year, day or situation. severe cognitive and memory impairments in language, executive function, recall, orientation. Medications Medications Current Medications Acetaminophen (Acetaminophen 325 Mg Tablet) 650 mg PO Q6H PRN PRN Reason: Pain Clobazam (Clobazam 10 Mg Tablet) 5 mg PO DAILY DONTE Clobazam (Clobazam 10 Mg Tablet) 25 mg PO BEDTIME DONTE Dicyclomine HCl (Dicyclomine Hcl 10 Mg Capsule) 20 mg PO BID DONTE Enoxaparin Sodium (Enoxaparin Sodium 40 Mg/0.4 Ml Syringe) 40 mg SUBCUT Q24H DONTE Last Admin: 05/29/24 16:20 Dose: 40 mg Gabapentin (Gabapentin 300 Mg Capsule) 300 mg PO BID DONTE Haloperidol (Haloperidol 5 Mg Tablet) 10 mg PO BEDTIME DONTE Haloperidol (Haloperidol 5 Mg Tablet) 5 mg PO DAILY DONTE Magnesium Oxide (Magnesium Oxide 400 Mg Tablet) 400 mg PO DAILY DONTE Multivitamins/Vitamin C (Multivitamin Tablet) 1 tab PO DAILY DONTE Pt Own (Cenobamate [ Xcopri] 200 Mg Tablet) 200 mg PO DAILY DONTE Pt Own( Eslicarbazepine [ Aptiom] 600 Mg Tablet) 600 mg PO BEDTIME DONTE Pt Own ( Phenobarbital 64.8 Mg Tablet) 129.6 mg PO BEDTIME DONTE Omeprazole (Omeprazole 20 Mg Capsule.Dr) 20 mg PO DAILY@0630 DONTE Sucralfate (Sucralfate 1 Gm Tablet) 2 gm PO DAILY DONTE Allergies Allergies Allergy/AdvReac Type Severity Reaction Status Date / Time Iodinated Contrast Media Allergy Intermediate RED ALL Verified 05/28/24 10:32 [IV Dye, Iodine Containing] OVER NAUSEA AND LOST RESPIRATIONS Penicillins [PENICILLINS] Allergy Intermediate Unknown Verified 05/28/24 10:32 phenytoin [From Dilantin] Allergy Intermediate gum Verified 05/28/24 10:32 swelling lamotrigine [From Lamictal] Allergy Unknown unknown Verified 05/28/24 10:32 Assessment & Plan Assessment & Plan (1) Encounter for assessment of healthcare decision-making capacity: Status: Acute Code(s): Z02.79 - Encounter for issue of other medical certificate (2) Cognitive impairment: Status: Acute Code(s): R41.89 - Other symptoms and signs involving cognitive functions and awareness (3) Delusional disorder: Status: Acute Code(s): F22 - Delusional disorders Plan Ms. Dee is a 58 year-old woman with hx of refractory seizure disorder, brain atrophy, paranoid delusions as result of seizure disorder who was brought by daughter after fall and fracture. Pt is known to this check writer through previous admission to psychiatric unit. Pt has consistently presented with difficulty understanding complex information, including medical information, not oriented to year or month, unable to show ability to reason and appreciate risks versus benefits of accepting or refusing treatment. Pt DOES NOT have capacity to make medical decisions. Total time managing care of this patient today ____ minutes.
[2024-05-29 21:09] VITALS: BP 139/78; PULSE 76; RESP 16; TEMP 36.7; O2SAT 99
[2024-05-29] MEDS: Gabapentin 300 MG CAPSULE PO (22:24)
[2024-05-29] MEDS: Dicyclomine HCl 10 MG CAPSULE 20 MG PO (22:24)
--- NOTE | 2024-05-30 04:09 | PC.NURSE ---
Pt sleeping at the bedside. No apparent distress noted. Breaths are even, regular, and unlabored with equal chest rises. Monitoring is ongoing.
[2024-05-30 06:00] VITALS: BP 129/75; PULSE 82; RESP 16; TEMP 36.9; O2SAT 99
[2024-05-30] MEDS: Omeprazole 20 MG CAPSULE.DR PO (06:44)
[2024-05-30] MEDS: Dicyclomine HCl 10 MG CAPSULE 20 MG PO (09:10)
[2024-05-30] MEDS: Multivitamin TABLET 1 TAB PO (09:10)
[2024-05-30] MEDS: Gabapentin 300 MG CAPSULE PO (09:11)
[2024-05-30] MEDS: Magnesium Oxide 400 MG TABLET PO (09:11)
--- NOTE | 2024-05-30 09:46 | MHC.CM.PN ---
PER CM NOTES, PT WILL DC HOME TODAY WITH RESUMPTION OF HOME EXTENSION AG[facility] AND [facility]ATED [facility]IA [facility], ED NOTES SENT HOME [facility] WILL TRANSPORT AT 1000 HOURS
[2024-05-30] MEDS: HaloperidoL 5 MG TABLET PO (10:26)
[2024-05-30] MEDS: cloBAZam 10 MG TABLET 5 MG PO (10:26)
--- NOTE | 2024-05-30 10:41 | PC.NURSE ---
Med administration delayed d/t med not available in pyxis. Pharmacy made aware.
[2024-05-30 11:02] VITALS: BP 108/71; PULSE 74; RESP 18; TEMP 36.6; O2SAT 100
== END 2024-05-30 11:02 | disposition home or self-care (01) ==
PROVIDERS: Physician Assistant; Emergency Provider Emergency Medicine; PCP Internal Medicine
DX: S06.0XAA Concussion with loss of consciousness status unknown, initial encounter (principal); W18.2XXA Fall in (into) shower or empty bathtub, initial encounter; Y93.9 Activity, unspecified; Y92.89 Other specified places as the place of occurrence of the external cause; Y99.9 Unspecified external cause status; G40.909 Epilepsy, unspecified, not intractable, without status epilepticus; F22 Delusional disorders; R41.89 Other symptoms and signs involving cognitive functions and awareness; R10.9 Unspecified abdominal pain; M54.2 Cervicalgia; Z79.899 Other long term (current) drug therapy
CPT/HCPCS: 36415; 70450; 70486; 71250; 72125; 74176; 80053; 81001; 81003; 83735; 84484; 85025; 87635; 93005; 97162; 99285; J1650; J2060

== ENCOUNTER → 2024-05-28 11:27 | Outpatient (BNV) | payer MEDICARE, MEDICAID, SELFPAY | PROVIDERS: Emergency Provider Emergency Medicine; PCP Internal Medicine; Visit Provider Social Worker | DX: F22 Delusional disorders (principal); R41.89 Other symptoms and signs involving cognitive functions and awareness | CPT/HCPCS: 99285 ==

== ENCOUNTER 2024-06-12 09:37 | Outpatient (AMB) | payer MEDICARE, MEDICAID, SELFPAY ==
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
[2024-06-12 09:43] VITALS: BP 104/68; PULSE 72; O2SAT 96; BMI 29.0
== END 2024-06-12 11:39 | disposition home or self-care (01) ==
PROVIDERS: PCP Internal Medicine; Visit Provider Nurse Practitioner Family
DX: R56.9 Unspecified convulsions (principal); S06.0X9A Concussion with loss of consciousness of unspecified duration, initial encounter

== ENCOUNTER → 2024-06-12 09:37 | Outpatient (BNVA) | payer MEDICARE, MEDICAID, SELFPAY | PROVIDERS: PCP Internal Medicine; Visit Provider Nurse Practitioner Family | DX: R56.9 Unspecified convulsions (principal); S06.0X9D Concussion with loss of consciousness of unspecified duration, subsequent encounter | CPT/HCPCS: 99212 ==

== ENCOUNTER 2024-06-13 12:44 | Outpatient (REF) | payer MEDICARE, MEDICAID, SELFPAY ==
--- NOTE | ~2024-06-13 | CT_ITS ---
EXAMINATION CT HEAD WITHOUT CONTRAST CLINICAL INFORMATION: Intractable epilepsy COMPARISON: CT head May 28, 2024. TECHNIQUE: CT of the head was performed without intravenous contrast. Reformatted axial, coronal, and sagittal images were reviewed. This CT examination was performed using dose optimization techniques as appropriate, variously including the following: *Automated exposure control *Adjustment of mA and/or kV according to patient size (this includes techniques or standardized protocols for targeted exams where dose is matched to indication/reason for exam; i.e. extremities or head) *Use of iterative reconstruction technique DLP: 648 mGy-cm FINDINGS: Large territory of encephalomalacia and gliosis within the left parietal lobe associated with ex vacuo dilation of the left lateral ventricle, unchanged since prior study. Overlying craniotomy present. Mild periventricular white matter hypoattenuation consistent with chronic small vessel ischemic disease. No intracranial hemorrhage, extra-axial fluid collection, or midline shift is identified. Vasquez-white matter differentiation is preserved. The ventricles are within normal limits. Basal cisterns are within normal limits. Paranasal sinuses are clear. Mastoid air cells and middle ear cavities are clear. Resolution of the previously seen right parietal scalp hematoma. No acute calvarial fractures. CT/CT head/brain wo IV con IMPRESSION: 1. No acute intracranial abnormality. 2. Large territory of encephalomalacia/gliosis within the left parietal lobe unchanged since prior study. Electronically signed by: Marcel Maki DO 06/15/2024 11:18 AM EDT
== END 2024-06-13 12:45 | disposition home or self-care (01) ==
LOC: HO.CT 12:44
PROVIDERS: PCP Internal Medicine; Visit Provider Psychiatry & Neurology Neurology
DX: G40.919 Epilepsy, unspecified, intractable, without status epilepticus (principal)
CPT/HCPCS: 70450

== ENCOUNTER 2024-06-26 11:14 | Outpatient (REF) | payer MEDICARE, MEDICAID, SELFPAY ==
--- NOTE | ~2024-06-26 | XR_ITS ---
EXAMINATION: XR TIBIA AND FIBULA RIGHT 3 VIEWS CLINICAL INFORMATION: Unspecified fracture of shaft of right tibia, initial encounter S82.201A. COMPARISON: XR Right tibia fibula 05/22/2024 TECHNIQUE: AP and lateral views of the right tibia and fibula were obtained. FINDINGS: Unchanged appearance of the tibial intramedullary nail with proximal and distal screws. Findings relating to comminuted obliquely oriented distal tibia and fibular fractures are again seen with out significant change in alignment of fracture fragments. There has been some bony remodeling along the edges. There has been a reduction in edema since the prior study. XR/XR tibia fibula RT 2V IMPRESSION: Unchanged alignment of major fracture fragments post tibial nail and screws with some healing of the fracture Electronically signed by: Willie Gutiérrez MD 09/03/2024 12:03 PM JULIANO KONG
== END 2024-06-26 11:15 | disposition home or self-care (01) ==
LOC: HO.HOSX 11:14
PROVIDERS: Visit Provider Physician Assistant
DX: S82.201D Unspecified fracture of shaft of right tibia, subsequent encounter for closed fracture with routine healing (principal); S82.401D Unspecified fracture of shaft of right fibula, subsequent encounter for closed fracture with routine healing; Z98.890 Other specified postprocedural states
CPT/HCPCS: 73590; 99212

== ENCOUNTER 2024-06-26 13:05 | Outpatient (AMB) | payer MEDICARE, MEDICAID, SELFPAY ==
[2024-06-26 13:27] VITALS: BMI 29.0
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
== END 2024-06-26 13:50 | disposition home or self-care (01) ==
PROVIDERS: PCP Internal Medicine; Visit Provider Physician Assistant
DX: S82.201A Unspecified fracture of shaft of right tibia, initial encounter for closed fracture (principal); S82.401A Unspecified fracture of shaft of right fibula, initial encounter for closed fracture
CPT/HCPCS: 99024

== ENCOUNTER 2024-07-15 11:30 | Emergency (ER) | payer MEDICARE, MEDICAID, SELFPAY ==
--- NOTE | ~2024-07-15 | CT_ITS ---
EXAM: Unenhanced CT of the head, facial bones spine INDICATION: Trauma COMPARISON: 06/13/2024, 05/28/2024, 04/16/2024 TECHNIQUE: Continuous helical imaging obtained through the head, facial bones and cervical spine without IV contrast. Reconstructed images performed in the coronal and sagittal planes This CT examination was performed using dose optimization techniques as appropriate, variously including the following: *Automated exposure control *Adjustment of mA and/or kV according to patient size (this includes techniques or standardized protocols for targeted exams where dose is matched to indication/reason for exam; i.e. extremities or head) *Use of iterative reconstruction technique TOTAL EXAM DLP: 624 head, 464 facial bones, 361 cervical spine mGy-cm FINDINGS: HEAD: Stable large territory of encephalomalacia and gliosis left parietal lobe with ex vacuo dilatation of the ipsilateral ventricle. Overlying craniotomy changes are stable. Mild periventricular white matter changes again seen. Right basal ganglia calcification again noted. No evolving infarct, mass lesion, mass effect or midline shift. No hemorrhage or extra-axial fluid collections. Intraorbital structures are unremarkable. Sinuses are free of disease. No soft tissue hematomas. FACIAL BONES: Depressed nasal fractures, nasal septal deviation with right-sided spur. Associated soft tissue density anterior nasal cavity. Anterior nasal spine and remaining bony structures are intact. Mild right maxillary sinus disease. Remaining sinuses and mastoids are clear. Intraorbital structures are unremarkable. CERVICAL SPINE: Slight cervical lordotic reversal. Multilevel degenerative changes. Odontoid is intact, posterior elements are aligned and no prevertebral soft tissue swelling, fracture or traumatic subluxation seen. No spinal canal compromise. Visualized soft tissues, parotid and thyroid glands within normal limits. Nonspecific cervical lymph nodes. Lung apices are clear. Unchanged left cervical metallic device with electronic wire passing the left subcutaneous soft tissues. CT/CT cervical spine wo IV con IMPRESSION: 1. No acute intracranial pathology. Stable left parietal postoperative changes. 2. Acute appearing nasal bone fractures. 3. Cervical lordotic reversal. No acute bony pathology cervical spine. Electronically signed by: Salina Selby MD 07/15/2024 02:51 PM EDT
--- NOTE | ~2024-07-15 | XR_ITS ---
EXAMINATION: XR CHEST CLINICAL INFORMATION: Chest pain COMPARISON: Prior CT chest 05/28/2024 TECHNIQUE: Frontal view of the chest was obtained. FINDINGS: Lungs grossly clear. Heart and pulmonary vessels normal. Cardiac monitoring leads present. XR/XR chest 1V IMPRESSION: Unremarkable examination. Electronically signed by: Doug Tavarez MD 07/15/2024 01:27 PM EDT
--- NOTE | 2024-07-15 11:36 | ECG_ITS ---
Test Reason : FALL Blood Pressure : / mmHG Vent. Rate : 077 BPM Atrial Rate : 077 BPM P-R Int : 146 ms QRS Dur : 072 ms QT Int : 356 ms P-R-T Axes : 022 045 047 degrees QTc Int : 402 ms Normal sinus rhythm Normal ECG When compared with ECG of 28-MAY-2024 10:39, No significant change was found Referred By: Generic ED Physician Electronically Signed By:Yuri Burnette
[2024-07-15 11:37] VITALS: BP 79/26; PULSE 82; RESP 16; TEMP 36.6; O2SAT 99; BMI 30.2
[2024-07-15 11:53] VITALS: BP 82/47; PULSE 86
[2024-07-15] MEDS: 0.9 % Sodium Chloride 1,000 ML 999 ML IVCONT ×2 (11:59→14:25)
--- NOTE | 2024-07-15 12:00 | PC.NURSE ---
patient noted to have lac to bridge of face approx 2cm and right hand. paitnet is at her baseline mentation per family, patient knows where she is, who she is and what happened to bring her to hospital. patient does not know year or time. patient noted to be pale/ashen. rectal temp taken, patient noted to be afebrile. IV started on patient right FA #20. patient has family at bedside, MD aware of situation.
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
[2024-07-15 12:11] LABS: MANUAL DIFF FLAG NO
[2024-07-15 12:14] LABS: Basophils Percent Auto 0.8 % (0-2); Hematocrit 35.1 % (37.0-47.0); Hemoglobin 11.8 g/dl (12.0-16.0); Imm Gran Abs Auto 0.03 X10*3/uL (0.00-0.03); Imm Gran Pct Auto 0.8 % (0.0-0.4); Lymphocytes Absolute Auto 0.8 X10*3/uL (1.2-4.9); Lymphocytes Percent Auto 19.8 % (20-40); Mean Corpuscular HGB Conc 33.6 g/dl (31.0-35.0); Mean Corpuscular Hemoglobin 31.9 pg (27.0-33.0); Mean Corpuscular Volume 94.9 fL (80.0-98.0); Mean Platelet Volume 10.5 fL (9.4-12.3); Monocytes Absolute Auto 0.6 X10*3/uL (0.1-1.2); Neutrophils Absolute Auto 2.5 x10*3/uL (2.0-8.3); Neutrophils Percent Auto 63.6 % (45-73); Platelet Count 192 X10*3/uL (160-400); Red Cell Distribution Width 13.2 % (11.0-16.0); White Blood Count 3.9 X10*3/uL (4.8-10.8)
[2024-07-15 12:24] LABS: Lactic Acid 1.3 mmol/L (0.5-2.0)
[2024-07-15 12:30] LABS: Alanine Aminotransferase 45 U/L (0-31); Albumin Level 3.9 g/dL (3.5-5.0); Alkaline Phosphatase 159 U/L (39-117); Anion Gap 12 (12-20); Aspartate Amino Transferase 32 U/L (5-31); Bilirubin Total 0.3 mg/dL (0.0-1.0); Blood Urea Nitrogen 13 mg/dL (9-16); Calcium 9.4 mg/dL (8.4-10.2); Carbon Dioxide 27 mmol/L (22-29); Chloride 103 mmol/L (96-108); Creatinine Clr Calc Pharmacy 97.8; Estimated Glomerular Filt Rate > 60; Glucose Random 80 mg/dL (60-115); Sodium 138 mmol/L (135-145); Total Protein 7.3 g/dL (6.5-8.0)
[2024-07-15 12:41] LABS: Troponin-I High Sensitivity < 2.7 ng/L (<3.5-17.0)
[2024-07-15 13:24] LABS: Appearance Urine Clear; Color Urine Yellow; Glucose Urine UA Negative (Negative); Leukocyte Esterase Urine Negative (Negative); Nitrite Urine Negative (Negative); Specific Gravity - Urine <= 1.005 (1.005-1.025); Urine Blood Negative (Negative); Urine Ketones Negative (Negative); Urine Protein Negative (Neg-Trace)
[2024-07-15 13:26] LABS: Bacteria Urine None Seen (None Seen); Hyaline Casts Urine 0-2 /LPF (0-2); RBC Urine 0-2 /HPF (0-2); Squamous Epithelial Cell Urine 0-2 /HPF (0-2); WBC Urine 0-5 /HPF (0-5)
--- NOTE | 2024-07-15 14:02 | PC.NURSE ---
patient gall bladder drain uncovered by this RN, brown pus draining around tube onto dressing. site noted to be red and swollen, provider at bedside to assess. site redressed by this RN.
[2024-07-15 14:08] VITALS: BP 93/68; PULSE 71; RESP 16; TEMP 36.6; O2SAT 100
[2024-07-15] MEDS: Lidocaine HCl 1 % MPF 5 ML VIAL INFILTRATI (14:26)
--- NOTE | 2024-07-15 15:21 | PC.NURSE ---
called patients daughter for ride a d/c. no answer, left message
[2024-07-15 15:33] VITALS: BP 113/71; PULSE 63; RESP 18; TEMP 36.7; O2SAT 100
== END 2024-07-15 16:27 | disposition home or self-care (01) ==
PROVIDERS: Emergency Provider Emergency Medicine; PCP Internal Medicine
DX: S01.21XA Laceration without foreign body of nose, initial encounter (principal); I95.9 Hypotension, unspecified; R11.0 Nausea; R51.9 Headache, unspecified; M54.2 Cervicalgia; F41.9 Anxiety disorder, unspecified; R07.89 Other chest pain; W18.39XA Other fall on same level, initial encounter; Y93.89 Activity, other specified; Y92.89 Other specified places as the place of occurrence of the external cause; Y99.8 Other external cause status; Z79.899 Other long term (current) drug therapy; Z23 Encounter for immunization
CPT/HCPCS: 12013; 36415; 70450; 70486; 71045; 72125; 80053; 81001; 83605; 84484; 85025; 87040; 90471; 93005; 96360; 96361; 99212; 99284; J2003

== ENCOUNTER → 2024-07-15 11:36 | Outpatient (BNV) | payer MEDICARE, MEDICAID, SELFPAY | PROVIDERS: Emergency Provider Emergency Medicine; PCP Internal Medicine; Visit Provider Internal Medicine Cardiovascular Disease | DX: R03.1 Nonspecific low blood-pressure reading (principal) | CPT/HCPCS: 93010 ==

== ENCOUNTER 2024-07-15 16:17 | Outpatient (AMB) | payer MEDICARE, MEDICAID, SELFPAY ==
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
[2024-07-15 16:23] VITALS: BMI 29.5
== END 2024-07-15 16:49 | disposition home or self-care (01) ==
PROVIDERS: PCP Internal Medicine; Visit Provider Internal Medicine
DX: S02.2XXA Fracture of nasal bones, initial encounter for closed fracture (principal); R56.9 Unspecified convulsions; F33.0 Major depressive disorder, recurrent, mild; F22 Delusional disorders; Z09 Encounter for follow-up examination after completed treatment for conditions other than malignant neoplasm

== ENCOUNTER 2024-07-23 09:31 | Emergency (ER) | payer MEDICARE, MEDICAID, SELFPAY ==
--- NOTE | ~2024-07-23 | CT_ITS ---
EXAMINATION: CT FACIAL BONES WITHOUT CONTRAST CLINICAL INFORMATION: Fall, head strike COMPARISON: Examination of 8 days previous. TECHNIQUE: Axial sections performed in bone and soft tissue windows without IV contrast enhancement. Sagittal and coronal reconstructions performed. There is some motion artifact on the evaluation. This CT examination was performed using dose optimization techniques as appropriate, variously including the following: *Automated exposure control *Adjustment of mA and/or kV according to patient size (this includes techniques or standardized protocols for targeted exams where dose is matched to indication/reason for exam; i.e. extremities or head) *Use of iterative reconstruction technique DLP: 360 mGy-cm FINDINGS: There may be slight increased distraction of the most inferior right nasal bone fracture but otherwise multiple nasal bone fractures appears similar. Frontal bone unremarkable. No new zygomatic disruption. Olfactory grooves are patent. The orbital rims and floors appear to be grossly intact although there is some limitation related to motion artifact. Rightward nasal septal deviation. Patent ostiomeatal complexes. The TMJs appear similar. Opacification in the anterior nasal cavity may be related to recent trauma with swelling. The globes, lenses, and extraocular muscles appear within normal limits. The mastoids are well aerated. Visualized skull base unremarkable. CT/CT facial bones wo IV con IMPRESSION: Slight increased distraction of the most inferior right nasal bone fracture but otherwise multiple nasal bone fractures seen previously appear similar. There is soft tissue thickening in the anterior nasal area which is similar; this could be related to posttraumatic change/swelling. Clinical correlation recommended. Electronically signed by: Iron Echevarria MD 07/23/2024 11:38 AM EDT
--- NOTE | ~2024-07-23 | CT_ITS ---
EXAMINATION: CT CERVICAL SPINE WITHOUT CONTRAST CLINICAL INFORMATION: Fall. Head strike COMPARISON: 07/15/2024 TECHNIQUE: Thin section axial imaging with sagittal and coronal reformats. This CT examination was performed using dose optimization techniques as appropriate, variously including the following: *Automated exposure control *Adjustment of mA and/or kV according to patient size (this includes techniques or standardized protocols for targeted exams where dose is matched to indication/reason for exam; i.e. extremities or head) *Use of iterative reconstruction technique DLP: 335 mGy-cm FINDINGS: There is advanced degenerative change with endplate irregularity observed C5-6 and C6-7 with slight kyphosis at this level. This appears chronic. Anterior spurring noted. No fracture or destructive process. Prevertebral soft tissues normal. No encroachment on the spinal canal. A radiopaque 18 wire and surgical clips are seen extending into the left supraclavicular neck. No change. Lung apices clear. CT/CT cervical spine wo IV con IMPRESSION: Multilevel degenerative change but no fracture. No change. Fleischner guidelines were followed. Electronically signed by: Doug Tavarez MD 07/23/2024 11:48 AM EDT
--- NOTE | ~2024-07-23 | CT_ITS ---
EXAMINATION: CT HEAD WITHOUT CONTRAST CLINICAL INFORMATION: Fall, head strike COMPARISON: July 15, 2024. TECHNIQUE: Contiguous axial imaging was performed from the skull base to vertex without intravenous administration of contrast. This CT examination was performed using dose optimization techniques as appropriate, variously including the following: *Automated exposure control *Adjustment of mA and/or kV according to patient size (this includes techniques or standardized protocols for targeted exams where dose is matched to indication/reason for exam; i.e. extremities or head) *Use of iterative reconstruction technique DLP: 661.8 mGy-cm FINDINGS: No evidence for acute hemorrhage or mass effect. No cisternal or intraventricular blood seen. Encephalomalacic change of the posterior left parieto-occipital lobe appears stable. No intraventricular or cisternal blood. Vasquez/white matter differentiation is maintained. Minimal hypodense changes of periventricular white matter seen likely related to chronic small vessel ischemic disease. Postsurgical changes of the posterior left parietal bone. The mastoids are well aerated. Skull base unremarkable. CT/CT head/brain wo IV con IMPRESSION: No new hemorrhage or mass effect. Encephalomalacic change of the posterior left parieto-occipital lobe, appearing stable. Postsurgical changes of the skull as described. Electronically signed by: Iron Echevarria MD 07/23/2024 11:30 AM EDT
[2024-07-23 09:42] VITALS: BP 99/61; PULSE 80; RESP 16; TEMP 37; O2SAT 97; BMI 26.9
--- NOTE | 2024-07-23 10:18 | PC.NURSE ---
pt to CT at this time. plan of care ongoing.
--- NOTE | 2024-07-23 10:35 | PC.NURSE ---
labs obtained/sent to lab. CT results pending at this time. resting in no apparent distress. no sob/wob noted. respirations even/unlabored. plan of care ongoing. call jung placed within reach.
[2024-07-23 10:36] LABS: MANUAL DIFF FLAG NO
[2024-07-23 10:40] LABS: Basophils Percent Auto 0.5 % (0-2); Eosinophils Absolute Auto 0.1 X10*3/uL (0.0-0.4); Eosinophils Percent Auto 0.9 % (0-4); Hematocrit 36.6 % (37.0-47.0); Hemoglobin 12.2 g/dl (12.0-16.0); Imm Gran Abs Auto 0.02 X10*3/uL (0.00-0.03); Imm Gran Pct Auto 0.4 % (0.0-0.4); Lymphocytes Absolute Auto 0.8 X10*3/uL (1.2-4.9); Lymphocytes Percent Auto 14.7 % (20-40); Mean Corpuscular HGB Conc 33.3 g/dl (31.0-35.0); Mean Corpuscular Hemoglobin 32.1 pg (27.0-33.0); Mean Corpuscular Volume 96.3 fL (80.0-98.0); Mean Platelet Volume 9.6 fL (9.4-12.3); Monocytes Absolute Auto 0.6 X10*3/uL (0.1-1.2); Neutrophils Absolute Auto 4.1 x10*3/uL (2.0-8.3); Neutrophils Percent Auto 73.5 % (45-73); Platelet Count 234 X10*3/uL (160-400); Red Cell Distribution Width 13.2 % (11.0-16.0); White Blood Count 5.6 X10*3/uL (4.8-10.8)
[2024-07-23 10:52] LABS: Anion Gap 14 (12-20); Blood Urea Nitrogen 15 mg/dL (9-16); Calcium 8.9 mg/dL (8.4-10.2); Carbon Dioxide 26 mmol/L (22-29); Chloride 100 mmol/L (96-108); Creatinine Clr Calc Pharmacy 99.8; Estimated Glomerular Filt Rate > 60; Glucose Random 100 mg/dL (60-115); Potassium 4.1 mmol/L (3.3-5.1); Sodium 136 mmol/L (135-145)
[2024-07-23 12:36] VITALS: BP 111/68; PULSE 71; RESP 18; TEMP 36.6; O2SAT 100
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
--- NOTE | 2024-07-23 13:35 | PC.NURSE ---
pt ready for discharge - HCP (Hamida) contacted in regards to transportation. per HCP, pt will be picked up within the hour by either her or INSULATION POWER UNIT TENDER. grid caster made aware.
[2024-07-23 15:28] VITALS: BP 111/68; PULSE 71; RESP 18; TEMP 36.6; O2SAT 100
== END 2024-07-23 15:31 | disposition home or self-care (01) ==
PROVIDERS: Emergency Provider Emergency Medicine; PCP Internal Medicine
DX: S02.2XXA Fracture of nasal bones, initial encounter for closed fracture (principal); W19.XXXA Unspecified fall, initial encounter; Y93.9 Activity, unspecified; Y92.9 Unspecified place or not applicable; Y99.9 Unspecified external cause status; G40.909 Epilepsy, unspecified, not intractable, without status epilepticus
CPT/HCPCS: 36415; 70450; 70486; 72125; 80048; 82550; 85025; 99284

== ENCOUNTER 2024-07-25 09:25 | Emergency (ER) | payer MEDICARE, MEDICAID, SELFPAY ==
[2024-07-25 09:30] VITALS: BP 97/63; PULSE 88; RESP 20; TEMP 37; O2SAT 98; BMI 26.6
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
[2024-07-25 11:10] VITALS: BP 97/63; PULSE 88; RESP 20; TEMP 37; O2SAT 98
== END 2024-07-25 11:11 | disposition home or self-care (01) ==
PROVIDERS: Emergency Provider Emergency Medicine Emergency Medical Services; PCP Internal Medicine
DX: R79.89 Other specified abnormal findings of blood chemistry (principal); Z48.02 Encounter for removal of sutures; Z79.899 Other long term (current) drug therapy
CPT/HCPCS: 99282; 99283

== ENCOUNTER 2024-08-07 12:31 | Outpatient (AMB) | payer MEDICARE, MEDICAID, SELFPAY ==
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
== END 2024-08-07 14:04 | disposition home or self-care (01) ==
PROVIDERS: PCP Internal Medicine; Visit Provider Physician Assistant
DX: S82.201A Unspecified fracture of shaft of right tibia, initial encounter for closed fracture (principal); S82.401A Unspecified fracture of shaft of right fibula, initial encounter for closed fracture
CPT/HCPCS: 99213

== ENCOUNTER → 2024-08-07 12:31 | Outpatient (BNVA) | payer MEDICARE, MEDICAID, SELFPAY | PROVIDERS: PCP Internal Medicine; Visit Provider Physician Assistant | DX: S82.201A Unspecified fracture of shaft of right tibia, initial encounter for closed fracture (principal); S82.401A Unspecified fracture of shaft of right fibula, initial encounter for closed fracture; X58.XXXA Exposure to other specified factors, initial encounter; Y93.9 Activity, unspecified; Y92.9 Unspecified place or not applicable; Y99.9 Unspecified external cause status | CPT/HCPCS: 99212 ==

== ENCOUNTER 2024-08-26 14:14 | Outpatient (AMB) | payer MEDICARE, MEDICAID, SELFPAY ==
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
[2024-08-26 14:21] VITALS: BP 101/59; PULSE 98; O2SAT 96; BMI 27.6
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
== END 2024-08-26 14:40 | disposition home or self-care (01) ==
PROVIDERS: PCP Internal Medicine; Referring Provider Physician Assistant; Visit Provider Nurse Practitioner Family
DX: Z87.81 Personal history of (healed) traumatic fracture (principal); M25.561 Pain in right knee; M79.661 Pain in right lower leg
CPT/HCPCS: 99204; G2211

== ENCOUNTER → 2024-08-26 14:14 | Outpatient (BNVA) | payer MEDICARE, MEDICAID, SELFPAY | PROVIDERS: PCP Internal Medicine; Referring Provider Physician Assistant; Visit Provider Nurse Practitioner Family | DX: M25.561 Pain in right knee (principal); M79.661 Pain in right lower leg; Z87.81 Personal history of (healed) traumatic fracture; Z91.81 History of falling | CPT/HCPCS: 99202 ==

== ENCOUNTER 2024-09-12 12:51 | Outpatient (REF) | payer MEDICARE, MEDICAID, SELFPAY | END 2024-09-12 12:52 | disposition home or self-care (01) | LOC: HO.LNP 12:51 | PROVIDERS: Visit Provider Physician Assistant | DX: N30.00 Acute cystitis without hematuria (principal) | CPT/HCPCS: 81003; 82948; 87086; 99202 ==

== ENCOUNTER 2024-09-12 12:51 | Outpatient (AMB) | payer MEDICARE, MEDICAID, SELFPAY ==
--- OUTSIDE RECORDS SUMMARY | 2024-09-12 12:53 | XMS_ITS | Clinical Summary ---
Author Organization Unknown Care Team Providers Care Director Of Sleep Name Role Phone SUNITA CUENCA MD, BRITTANY Unavailable Unavailable TD PAYAN, LARRY Unavailable Unavailable Payers Payer Name Policy Type Policy Number Effective Date Expira tion Date ON DEMAND MEDICARE - [place] BILLING - ABN [id number] [place] - [place] [id number] Problems Condition Name Condition Details Condition Category [...] 600 mg tablet 05-10 00:00: 00 Yes [id number] 600 mg BEDTIME 600 mg BEDTIME (route: oral) Med Classific ation: Central Nervous System Agents Bactrim DS 800 mg-160 mg tablet 05-07 00:00: 00 05-21 23:59 :00 No [id number] 800 mg 2 TIMES DAILY 800 mg 2 TIMES DAILY (route: oral) Med Classific ation: Anti-Infe ctive Agents clobazam 10 mg tablet 05-10 00:00: 00 Yes [id number] 10 mg 2 TIMES DAILY 10 mg 2 TIMES DAILY (route: oral) Med Classific ation: Central Nervous System Agents dicyclomine 10 mg capsule 05-10 00:00: 00 Yes [id number] 10 capsule 4 TIMES DAILY 10 capsule 4 TIMES DAILY (route: oral) Med Classific ation: Gastroint estinal Therapy Agents docusate sodium 100 mg capsule 05-10 00:00: 00 Yes [id number] 100 capsule BEDTIME 100 capsule BEDTIME (route: oral) Med Classific ation: Gastroint estinal Therapy Agents enoxaparin 40 mg/0.4 mL subcutaneou s syringe 05-10 00:00: 00 05-30 23:59 :00 No [id number] 40 mg DAILY 40 mg DAILY (route: subcutaneo us) Med Classific ation: Hematolog ical Agents gabapentin 300 mg capsule 05-10 00:00: 00 Yes [id number] 300 capsule 2 TIMES DAILY 300 capsule 2 TIMES DAILY (route: oral) Med Classific ation: Central Nervous System Agents haloperidol 5 mg tablet 05-10 00:00: 00 Yes [id number] 5 mg BEDTIME 5 mg BEDTIME (route: oral) Med Classific ation: Central Nervous System Agents haloperidol 5 mg tablet 05-10 00:00: 00 Yes [id number] 5 mg DAILY 5 mg BRITANY Y (route: oral) Med Classific ation: Central Nervous System Agents ibuprofen 800 mg tablet 05-10 00:00: 00 Yes [id number] 800 mg 2 TIMES DAILY 800 mg 2 TIMES DAILY (route: oral) Med Classific ation: Analgesic , Anti-infl ammatory or Antipyret ic magnesium oxide 400 mg (241.3 mg magnesium) tablet 05-10 00:00: 00 Yes [id number] 400 tablet DAILY 400 tablet DAILY (route: oral) Med Classific ation: Electroly te Balance-N utritiona l Products Multi For Her 18 mg iron-600 mcg-40 mcg capsule 05-10 00:00: 00 Yes [id number] 600 mg DAILY 600 mg DAILY (route: oral) Med Classific ation: Electroly te Balance-N utritiona l Products Onfi 10 mg tablet 05-10 00:00: 00 Yes [id number] 10 mg BEDTIME 10 mg BEDTIME (route: oral) Med Classific ation: Central Nervous System Agents Vital Signs Vital Name Observation Time Observation Value Commen ts Temperature 2024-09-03 13:37:00.000 97.6 [degF] Temperature 2024-08-19 12:58:00.000 98.8 [degF] Temperature 2024-07-30 11:50:00.000 97.6 [degF] Temperature 2024-07-25 13:47:00.000 97.6 [degF] Temperature 2024-07-16 22:34:00.000 98 [degF] Temperature 2024-07-09 13:26:00.000 97.3 [degF] Pulse 2024-08-19 12:58:00.000 89 /min Pulse 2024-07-30 11:50:00.000 78 /min Pulse 2024-07-25 13:47:00.000 68 /min Pulse 2024-07-16 22:34:00.000 75 /min Pulse 2024-07-09 13:26:00.000 86 /min Respirations 2024-09-03 13:37:00.000 16 /min Respirations 2024-08-19 12:58:00.000 16 /min Respirations 2024-07-30 11:50:00.000 16 /min Respirations 2024-07-25 13:47:00.000 16 /min Respirations 2024-07-16 22:34:00.000 12 /min Respirations 2024-07-09 13:26:00.000 16 /min Systolic Blood Pressure 2024-09-03 13:37:00.000 120 mm [Hg] Systolic Blood Pressure 2024-08-19 12:58:00.000 108 mm [Hg] Systolic Blood Pressure 2024-07-30 11:50:00.000 110 mm [Hg] Systolic Blood Pressure 2024-07-25 13:47:00.000 100 mm [Hg] Systolic Blood Pressure 2024-07-16 22:34:00.000 102 mm [Hg] Systolic Blood Pressure 2024-07-09 13:26:00.000 100 mm [Hg] Diastolic Blood Pressure 2024-09-03 13:37:00.000 60 mm [Hg] Diastolic Blood Pressure 2024-08-19 12:58:00.000 [...] AWARENESS FOR SAFETY AND WILL NOTIFY CLINICAL REFLOW OPERATOR AND PHYSICIAN/PROVIDER WITH ANY CHANGE IN CONDITION. [code = SKILLED NURSE WILL MAINTAIN SITUATIONAL AWARENESS FOR SAFETY AND WILL NOTIFY CLINICAL REFLOW OPERATOR AND PHYSICIAN/PROVIDER WITH ANY CHANGE IN CONDITION.] [...] HOME SAFETY AND FALL PREVENTION STRATEGIES.] Goal 2024-09-03 Patient Goal - S SUZAN HOME WITHOUT ANY FURTHER INJURIES PER DAUGHTER Goal 2024-07-04 Patient Goal - S SUZAN HOME WITHOUT ANY FURTHER INJURIES PER DAUGHTER Goal Provider Goal - A PLAN OF CARE WILL BE ESTABLISHED THAT MEETS PATIENT'S LONG-TERM NEEDS AND INCLUDES PATIENT GOAL FOR HOME [...] AND FALL PREVENTION STRATEGIES THROUGHOUT CERTIFICATION PERIOD. Reason for Visit MODERATE ASSIST WITH TRANSFER/AMBULATION/ADLS Encounters Start Date/Time End Date/Time Encounter Type Admission Type Attending [facility] Care Department Encounter ID Discharge Date Discharge Status Discharge Condition Discharge Reason Percent Goals Met 2024-05-10 00:00:00 2024-09-03 00:00:00 Outpatient RECERTIFIC LARRY HOGAN [facility] [id number] 2024-09-03 00:00:00 DISCHARGE TO HOME OR SELF CARE MODERATE ASSIST WITH TRANSFER/A MBULATION/ ADLS GOALS MET ( ONLY) .00
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
[2024-09-12 13:05] VITALS: BP 122/80; PULSE 97; TEMP 37; O2SAT 98
== END 2024-09-12 13:57 | disposition home or self-care (01) ==
PROVIDERS: Visit Provider Physician Assistant
DX: N30.00 Acute cystitis without hematuria (principal); Z13.9 Encounter for screening, unspecified

== ENCOUNTER 2024-12-30 12:11 | Outpatient (AMB) | payer MEDICARE, MEDICAID, SELFPAY ==
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
[2024-12-30 12:34] VITALS: BP 121/56; PULSE 80; BMI 27.9
--- OUTSIDE RECORDS SUMMARY | 2024-12-30 14:48 | XMS_ITS ---
Author Organization [facility] Address [address] [place] [address] Care Team Providers Care Construction Director Name Role Phone Lara Mercado Primary Care Provider Unavailab Jose De Jesus Aguilar Jr Unavailable REASON FOR VISIT Patient presents today for a COLON SCREENING Encounters Encounter Location Date Provider Diagnosis [facility] [address] [place] [address] 09/05/[address] Plan Of Treatment No Information Progress Notes * ISRAEL TRANOB: 968 (59 yo F)Acc No.[id number]:09/05/2023 Progress Notes Patient:?NICHELLE TRAN Provider:?Jose De Jesus St MD :1965???Age:57 Y???Sex:Female D ate:09/05/2023 Address:[address] [place], [place] [id number] Pcp:Lara Rivas Subjective: * Chief Complaints: * ???1. Patient presents today for a COLON SCREENING. * Medical History:? Objective: * Vitals:? Assessment: Plan: * Treatment: * * The named appointment provid er may or may not be the originator of this progress note, and it is not deemed complete until electronically signed by the appointment provider. Sign off status: Pending * Provider:?Jose De Jesus St MD Date:?1 11/06/2022 Generated for Carliei yimi/Corinne/eTransmitting on:?2024 02:48 PM EDT
--- OUTSIDE RECORDS SUMMARY | 2024-12-30 14:48 | XMS_ITS ---
Author Organization [facility] Address [address] [place] [address] Care Team Providers Care Finish Remover Name Role Phone Lara Mercado Primary Care Provider Unavailab Jose De Jesus Aguilar Jr Unavailable [phone] REASON FOR VISIT cancelled appt for today Encounters Encounter Location Date Provider Diagnosis [facility] [address] [place] [address] 09/05/[address] Jr Plan Of Treatment No Information Progress Notes * TAURUS TRANWENDREOB: [birth year] (57 yo F)Acc No.[id number]:09/05/2023 Patient:?NICHELLE TRAN :1965???Age:57 Y???Sex:Female Address:[address] [place] [address], [place] [address] * true * Date:? Generated for Kiara geller/Corinne/eTransmitting on:?2024 02:48 PM EDT
--- OUTSIDE RECORDS SUMMARY | 2024-12-30 14:48 | XMS_ITS | Clinical Summary ---
Author Organization [facility] Address [address] [place] [address] Care Team Providers Care Head Of Cytogenetics Name Role Phone Lara Mercado MD Primary Care Provider [phone] Social History Tobacco Use Types Packs/Day Years Used Date Smoking Tobacco: Never Assessed Comments Unknown Sex and Gender Information Value Date Recorded Sex Assigned at Not on file Legal Sex Female 4:52 PM EST Gender Identity Not on file Sexual Orientation Not on file Plan of Treatment Health Maintenance Due Date Last Done Comments Breast Cancer Screening 1965 Hepatitis B Vaccine (1 of 3 - 19+ 3-dose series) 12/29/1986 Colorectal Cancer Screening: Annual FOBT 12/29/2016 Colorectal Cancer Screening: Colonoscopy 12/29/2016 Colorectal Cancer Screening: Sigmoidoscopy 12/29/2016 Influenza Vaccine (Season Ended) 2025 Pneumococcal Vaccine: Pediat rics (0 to 5 Years) and At-Risk Patients (6 to 64 Years) Aged Out No longer eligible b ased on patient's age to complete this topic Insurance [place]ICARE [place]ID [place] Care Teams Head Of Cytogenetics Relationship Specialty Start Date End Date Lara Mercado MD [address] [place] [address] PCP - General Internal Medicine 11/11/20
--- OUTSIDE RECORDS SUMMARY | 2024-12-30 14:49 | XMS_ITS | Encounter Summary ---
Author Organization [facility] Address [address] [place] [address] [address] [place] [address] Care Team Providers Care Sales Representative Printing Paper Name Role Phone Unavailable Primary Care Provider Unavailabl e Encounter Details Date Type Department Care Team (Latest Contact Info) Description 09/12/2021 Abstract [facility] CONVERSIONS Dental, Provider, DDS Social History Tobacco Use Types Packs/Day Years Used Date Smoking Tobacco: Never Assessed Comments Unknown Sex and Gender Information Value Date Recorded Sex Assigned at Female 07/24/2022 10:37 AM EDT Legal Sex Female 10:37 AM EDT Gender Identity Female 07/24/2022 10:37 AM EDT Sexual Orientation Straight 07/24/2022 10 :37 AM EDT documented as of this encounter Plan of Treatment Not on file documented as of this encounter Visit Diagnoses Not on filedocumented in this encounter
--- OUTSIDE RECORDS SUMMARY | 2024-12-30 14:49 | XMS_ITS | Data Portability ---
Author Organization [facility] [employer] [facility], Main Office Address [address] [facility] [facility] [place] [address] Care Team Providers Care Pharmacology Associate Name Role Phone DULCE MARIA BRITO - 2ND FLOOR OTHER BRITTANY CARDENAS Primary Care Provider Assessment Encounter Date Assessment Date Assessment LastModified by Organization Details LastModified Time 05/06/2024 05/06/2024 I have seen and examined the patient independently and confirmed the findings above with the HVAC FIELD SERVICE TECHNICIAN student note. Management plan discussed with the HVAC FIELD SERVICE TECHNICIAN student personally. [email or web address] Not available 05/06/2024 14:53:50 Plan of Treatment Reminders Order Date Submit Date Provider Last Modified By Organization Details Last Modified Time Details Appointments None record ed. Lab None record ed. Referral None record ed. Procedures None record ed. Surgeries None record ed. Imaging None record ed. Medication Orders None record ed. Patient TargetsNo targets recorded. Patient InstructionsNo instructions recorded. Reason for Referral None Reported. Problems Name Problem SNOMED Code Status Onset Date Resolution Date Notes Provider Name and Address Organization Details Recorded Time Seizure 72533651 Active 2023 RADHA PAREKH NP [address] [facility], [facility] [address], [place], [address], [facility] [employer] [facility] 4 13:12:57 Compressi on fracture of thoracic vertebra 773821939141 4 Active 2023 T 12 RADHA PAREKH NP [address] [facility], [address], [place], [address], [facility] [employer] [facility] 4 14:24:14 Psychotic disorder 64226629 Active 2023 RADHA PAREKH NP [address] [facility], [address], [place], [address], [facility] [employer] 4 14:24:23 Hypomagne semia 634690744 Active 2023 RADHA PAREKH NP [address], [address], [place], [address], [facility] [employer] [facility] 4 14:24:34 Delusiona l disorder 84999604 Active 2023 RADHA PAREKH NP [address], [address], [place], [address], [facility] [employer] [facility] 4 14:24:45 Urinary incontine dee 566343234 Active 2023 RADHA PAREKH NP [address], [address], [place], [address], [facility] [employer] [facility] 4 14:25:02 Overactiv e urinary bladder 484841765 Active 2023 RADHA PAREKH NP [address], [address], [place], [address], [facility] [employer] [facility] 4 14:25:10 Irritable bowel syndrome 47448024 Active 2023 RADHA PAREKH NP [address], [address], [place], [address], [email or web address] 4 14:25:16 Obese 273137245 Active 2023 RADHA PAREKH NP [address], [address], [place], [address], [facility] [employer] [facility] 4 14:25:54 Low blood pressure 57172887 Active 2023 RADHA PAREKH NP [address], [address], [place], [address], [facility] [employer] [facility] 4 14:26:04 Anemia 630144745 Active 2023 RADHA PAREKH NP [address], [address], [place], [address], [facility] [employer] [facility] 4 14:26:12 Major depressiv e disorder 471017214 Active 2023 RADHA PAREKH NP [address], [address], [place], [address], [email or web address] 4 14:26:30 Multiple joint pain 43933646 Active 2023 RADHA PAREKH NP [address] [facility], [address], [place], [address], [facility] [employer] [facility] 4 14:26:40 Ataxia 98581304 Active 2023 RADHA PAREKH NP [address] [facility], [address], [place], [address], [facility] [employer] [facility] 4 14:26:48 Expressiv e language disorder 431400572 Active 2023 RADHA PAREKH NP [address] [facility], [address], [place], [address], [email or web address] 4 14:27:23 Hyponatre mik 06548237 Active 2023 RADHA PAREKH NP [address] [facility], [address], [place], [address], [email or web address] 4 14:27:34 Gastroeso phageal reflux disease without esophagit is 347643862 Active 2023 RADHA PAREKH NP [address] [facility], [address], [place], [address], [email or web address] 4 14:27:49 Neoplasm of brain 662944469 Active 2023 History of, s/p craniotom y RADHA PAREKH NP [address] [facility], [address], [place], [address], [email or web address] 4 14:53:53 Fracture of tibia AND fibula 867123678 Active 2023 s/p IMN 04/18/24 Dr. Néstor PAREKH NP [address] [facility], [address], [place], [address], [email or web address] 4 14:54:33 Impaired cognition 550672794 Active 2023 Lavinia Munoz MD [address] [facility], [address], [place], [address], [facility] 4 17:07:04 Problem Notes None recorded. Medical Equipment None Reported. Allergies Allergen ID Allergen Name Allergen Category Reaction Reaction Severity Criticality Documentation Date Start Date Code Code System Note Provider Name and Address Organization Details Recorded Time 33951 Iodinated contrast media (substanc e) medicatio n Not available Not available Not available 04/22/2024 77080 2004 SNOMED Not Available Not Available Not Available 56994 Product containin g penicilli n (product) medicatio n Not available Not available Not available 04/22/2024 88929 8001 SNOMED Not Available Not Available Not Available 85132 Dilantin medicatio n Not available Not available Not available 04/22/2024 0 RxNorm Not Available Not Available Not Available Medications Name Sig Start Date Stop Date Status Note LastModified by Organization Details LastModified Time phenobarbital 64.8 mg tablet Take 2 tablets every day by oral route at bedtime. 2023 active Not Available Not Available Not Avai lable clobazam 10 mg tablet 1/2 tab (5 mg) po qd, and 2 1/2 tabs (25 mg) po q HS 2023 active Not Available Not Available Not Avai lable Xcopri 200 mg tablet Take 1 tablet every day by oral route. 2023 active Not Available Not Available Not Avai lable Vitals Date Recorded Body height Body mass index (BMI) Body weight Heart rate Respiratory rate Body temperature Oxygen saturation Oxygen saturation in Arterial blood by Pulse oximetry Systolic blood pressure Diastolic blood pressure Provider Name and Address Organization Details Last Updated DateTime 4 165.1 cm 30 kg/m2 41655.6 3 g 72 /min 17 /min 98 [degF] 98 % 98 % 141 mm[Hg] 96 mm[Hg] Lavinia Munoz MD [address] [facility] [address], [place], [address] , [email or web address] 4 15:55:10 Date Recorded Body height Heart rate Respiratory rate Body temperature Oxygen saturation Oxygen saturation in Arterial blood by Pulse oximetry Systolic blood pressure Diastolic blood pressure Provider Name and Address Organization Details Last Updated DateTime 4 165.1 cm 72 /min 17 /min 98 [degF] 98 % 98 % 141 mm[Hg] 96 mm[Hg] RADHA PAREKH NP [address] [facility] [address], [place], [address] , [email or web address] 4 13:55:54 Date Recorded Body height Heart rate Respiratory rate Body temperature Oxygen saturation Oxygen saturation in Arterial blood by Pulse oximetry Systolic blood pressure Diastolic blood pressure Provider Name and Address Organization Details Last Updated DateTime 4 165.1 cm 72 /min 17 /min 98 [degF] 98 % 98 % 141 mm[Hg] 96 mm[Hg] RADHA PAREKH NP [address] [facility], [address], [place], [address], [email or web address] 4 12:49:49 Date Recorded Body height Body mass index (BMI) Body weight Heart rate Respiratory rate Body temperature Oxygen saturation Oxygen saturation in Arterial blood by Pulse oximetry Systolic blood pressure Diastolic blood pressure Provider Name and Address Organization Details Last Updated DateTime 4 165.1 cm 30 kg/m2 57849.4 2 g 72 /min 17 /min 98 [degF] 98 % 98 % 141 mm[Hg] 96 mm[Hg] Irene [email or web address] [email or web address] 4 14:28:15 Date Recorded Body height Body mass index (BMI) Body weight Heart rate Respiratory rate Body temperature Oxygen saturation Oxygen saturation in Arterial blood by Pulse oximetry Systolic blood pressure Diastolic blood pressure Provider Name and Address Organization Details Last Updated DateTime 4 165.1 cm 30 kg/m2 21361.6 3 g 78 /min 18 /min 96.6 [degF] 98 % 98 % 98 mm[Hg] 60 mm[Hg] Aminta Johnson NP [address] [facility], [address], [place], [address], [email or web address] 4 13:12:27 Social History Question Answer Notes LastModified by Organizat ion Details LastModified Time Tobacco Smoking Status Never Smoker RADHA PAREKH NP [address] [facility], [address], [place], [address], [email or web address] 04/22/2024 14:28:36 Do You Have An Advance Directive? Yes Information not available 04/28/2024 What Is Your Level Of Alcohol Consumption? None [email or web address] Information not available 04/22/2024 What Is Your Code Status? Full Code Information not available 04/22/2024 Where Do You Live? Apartment With Daughter, Full Flight Of Stairs To Enter. Ambulates Ad Flori. Has finish production manager During The Day While Family Works. [email or web address] Information not available 04/22/2024 Legal Guardian? No Informati on not available 04/28/2024 Do You Have A Medical Power Of Cat Scanner Operator? Yes Has HCP, Invoked 04/22/24 Information not available 04/28/2024 What Was The Date Of Your Most Recent Tobacco Screening? 04/22/2024 [email or web address] Information not available 04/22/2024 Do You Have An Out Of Hospital DNR? No Information not available 04/28/2024 Do You Use Any Illicit Or Recreational Drugs? No Information not available 04/22/2024 Has Tobacco Cessation Counseling Been Provided? No N/a As Pt Is Non-smoker Information not available 04/28/2024 Do You Or Have You Ever Used Any Other Forms Of Tobacco Or Nicotine? No [email or web address] Information not available 04/22/2024 Sex: Unknown Functional Status None recorded. Mental Status None recorded. Family History Relationship Description Onset Age of this Age Resolved Age Notes LastModified by Organization Details LastModified Time Father Heart disease [email or web address] Not available 2023 14:28:07 Mother Diabetes mellitus [email or web address] Not available 2023 14:28:16 Medical History No medical history recorded. Gynecological HistoryNo gynecological history recorded. Obstetrics History GPAL:G 0 P 0 0 0 0 Immunizations Vaccine Type Date Status Note Provider Nam e and Address Organization Details Recorded Time DTaP, unspecified formulation 10/30/2018 completed Jessica Bonner [facility] 04/22/2024 13:04:17 Tdap 03/08/2020 completed Jessica Bonner [facility] 04/22/2024 13:04:33 Tdap 09/28/[address] [facility] 04/22/2024 13:04:41 Tdap 11/01/2021 completed Jessica Bonner [facility] 04/22/2024 13:04:48 Td(adult) unspecified formulation 03/03/[address] [facility] 04/22/2024 13:05:02 influenza, unspecified formulation 06/28/[address] [facility] 04/22/2024 13:05:17 SARS-COV-2 (COVID-19) vaccine, UNSPECIFIED 12/07/[address] [facility] 04/22/2024 13:05:34 SARS-COV-2 (COVID-19) vaccine, UNSPECIFIED 12/28/2020 completed Jessica [facility] 04/22/2024 13:05:41 Past Encounters Encounter ID Performer Location Encounter Start Date Encounter Closed Date Diagnosis/Indication Diagnosis SNOMED-CT Code Diagnosis ICD10 Code Diagnosis Note [id number] RADHA PAREKH NP [address] [address] 04/22/2024 12:23:51 04/23/2024 13:07:55 Seizure 28549973 R56.9 Suspected sz. activity resulting in fall with injury.See n by Dr. Barnes ar [facility], no med changes made.Usual Neurologis t is Dr. Cordero in [place] ([facility]), missed last appt., encouraged daughter to reschedule in light of recent sz. activity.C urrent meds:Xcopr i 200 mg qdPhenobar bital 129.6 mg q HSClobazam 5 mg q am, 25 mg q pmAptiom 600 mg q HSGabapent in 300 mg bidMonitor neuro status closely Fracture o f tibia AND fibula 040193050 S82.201A Right tib-fib fx. resulting from fall at home.Under went IMN 04/18 by britt Cat. Rebecca barroso boot at all timesDCD to remain in place.love nox 40 mg qd x 42 days for ACAPAP 975 mg tid scheduled and oxycodone 5 mg q 6 hrs prn for pain mgmt. - monitor use and effect, adjust as needed.PT OT eval and tx.Goal is to return home.Updat e Ortho with concerns, follow up in 2 wks. Anemia 660904168 D64.9 Post op, down to 7.4, transfused with 2 units PRBCs with improvemen t to 10.4Now on ACMonitor s/s active bleedingMo nitor CBCs Psychotic disorder 11932 001 F29 Continue home meds:gabap entin 300 mg bidhaldol 5 mg q am, 10 mg q pmInvoke HCP 04/22/24Mon itor mood and behaviorsP sych eval prn Major depr essive disorder 704853194 F32.9 Not on antidepres santsMonit or mood and behaviors Hypomagnesemia 324229817 E83.42 Continue Mag Ox 400 mg qdLast Mg. level 1.7, monitor. Gastroesop hageal reflux disease without esophagitis 686866949 K21.9 Continue pantoprazo le 40 mg qdMonitor GIsx. Irritable bowel syndrome 14132365 K58.9 Continue bentyl 10 mg qidMonitor GI sx. [id number] RADHA PAREKH NP [address] [address] 04/24/2024 11:21:09 04/25/2024 15:37:36 Seizure 14034719 R56.9 Suspected sz. activity resulting in fall with injury.See n by Dr. Barnes ar [facility], no med changes made.Usual Neurologis t is Dr. Cordero in [place] ([facility]), missed last appt., encouraged daughter to reschedule in light of recent sz. activity.C urrent meds:Xcopr i 200 mg qdPhenobar bital 129.6 mg q HSClobazam 5 mg q am, 25 mg q pmAptiom 600 mg q HSGabapent in 300 mg bidMonitor neuro status closely, no sz. activity so far while here. Fracture o f tibia AND fibula 701088282 S82.201A Right tib-fib fx. resulting from fall at home.Under went IMN 04/18 by britt Cat. rhondaWSari barroso boot at all timesDCD to remain in place.love nox 40 mg qd x 42 days for ACAPAP 975 mg tid scheduled and oxycodone 5 mg q 6 hrs prn for pain mgmt. - monitor use and effect, adjust as needed.PT OT eval and tx.Goal is to return home.Updat e Ortho with concerns, follow up in 2 wks. Anemia 188253648 D64.9 Post op, down to 7.4, transfused with 2 units PRBCs with improvemen t to 10.4Curren t hgb 9.9.Now on ACMonitor s/s active bleedingMo nitor CBCs Psychotic disorder 55837 001 F29 Continue home meds:gabap entin 300 mg bidhaldol 5 mg q am, 10 mg q pmInvoke HCP 04/22/24Mon itor mood and behaviorsP sych eval prn Major depr essive disorder 110635946 F32.9 Not on antidepres santsMonit or mood and behaviors Hypomagnesemia 329766132 E83.42 Continue Mag Ox 400 mg qdLast Mg. level 1.7, monitor. Gastroesop hageal reflux disease without esophagitis 523336650 K21.9 Continue pantoprazo le 40 mg qdMonitor GIsx. Irritable bowel syndrome 89586629 K58.9 Continue bentyl 10 mg qidMonitor GI sx. [id number] Lavinia Munoz MD [address] [address] 04/28/2024 15:38:43 05/12/2024 14:58:50 Seizure 18587667 G40.89 With long hx of seizures, difficult to control, she has also had poor tolerance to meds.At last neuro appt at [facility] with Dr. Cordero she reported 3 small seizures a day with blurry vision, excessive blinking, and feeling off. Most don't progress to motor activity. She additional ly gets 3 convulsion s a week. This is apparently baseline for this pt.Continu e Xcopri 200 mg qd, phenobarbi karla 129.6 mg qhs , Clobazam 5 mg q am and 25 mg q pm, Aptiom 600 mg qhs, and gabapentin 300 mg BID.She has had no seizure activity so far while here.Monit or for seizures.F /U with Dr. Cordero ([phone]) as planned. Fracture o f tibia AND fibula 063571145 S82.51XD S82.61XD Recovering well from ORIF of right tib-fib fx.May WBATTo wear Cam boot at all timesConti nue APAP 975 mg TID scheduled and oxycodone 5 mg q 6 hrs prn.Contin ue Lovenox 40 mg qd for DVT prophylaxi s for 6 wks post-op..F /U with ortho as planned.. Anemia 284227200 D62 D64.89 Acute on chronic.Wa s stable as of 04/24, no labs done today.Clari tor labs.Consi annabella adding iron. Psychotic disorder 44480 001 F28 No evidence of delusions since here.Lizbeth nue gabapentin 300 mg BID and haldol 5 mg q am and 10 mg q pmMonitor mood and behaviorsP sych eval prn Major depr essive disorder 098154868 F32.89 As above. Hypomagnesemia 778208136 E83.42 Continue Mag Ox 400 mg qdMonitor levels Gastroesop hageal reflux disease without esophagitis 828886042 K21.9 No current sxs.Contin ue pantoprazo le 40 mg qdMonitor GI sxs. Irritable bowel syndrome 97438215 K58.9 Continue bentyl 10 mg qidMonitor GI sxs. Impaired cognition 94852 6002 R41.89 With poor short term recall regarding medical issues especially .Likely due to craniotomi es and frequent seizures.B IM was 05/08.HCP invoked 04/22/24Con tinue supportive care, expect decline.Mo nitor mood and behaviors. Psych consult prn. [id number] RADHA PAREKH NP [address] [address] 04/29/2024 10:41:26 04/30/2024 19:12:03 Seizure 86322052 G40.89 With long hx of seizures, difficult to control, she has also had poor tolerance to meds.At last neuro appt at [facility] with Dr. Cordero she reported 3 small seizures a day with blurry vision, excessive blinking, and feeling off. Most don't progress to motor activity. She additional ly gets 3 convulsion s a week. This is apparently baseline for this pt.Continu e Xcopri 200 mg qd, phenobarbi karla 129.6 mg qhs , Clobazam 5 mg q am and 25 mg q pm, Aptiom 600 mg qhs, and gabapentin 300 mg BID.She has had no seizure activity so far while here.Monit or for seizures.F /U with Dr. Cordero ([phone]) as planned. Fracture o f tibia AND fibula 812455609 S82.51XD S82.61XD Recovering well from ORIF of right tib-fib fx.May WBATTo wear Cam boot at all times - encourage compliance .Continue APAP 975 mg TID scheduled and oxycodone 5 mg q 6 hrs prn.Contin ue Lovenox 40 mg qd for DVT prophylaxi s for 6 wks post-op..F /U with ortho as planned.. Anemia 919315989 D62 D64.89 Acute on chronic.Wa s stable as of 04/24, repeat labs 05/05Monito r labs.Consi annabella adding iron. Psychotic disorder 90251 001 F28 No evidence of delusions since here.Lizbeth nue gabapentin 300 mg BID and haldol 5 mg q am and 10 mg q pmMonitor mood and behaviorsP sych eval prn Major depr essive disorder 830700892 F32.89 As above. Hypomagnesemia 800168750 E83.42 Continue Mag Ox 400 mg qdMonitor levels Gastroesop hageal reflux disease without esophagitis 460955503 K21.9 No current sxs.Contin ue pantoprazo le 40 mg qdMonitor GI sxs. Irritable bowel syndrome 99026660 K58.9 Continue bentyl 10 mg qidMonitor GI sxs. Impaired cognition 97656 6002 R41.89 With poor short term recall regarding medical issues especially .Likely due to craniotomi es and frequent seizures.B IM was 05/08.HCP invoked 04/22/24Con tinue supportive care, expect decline.Mo nitor mood and behaviors. Psych consult prn. [id number] RADHA PAREKH NP [address] [address] 05/01/2024 12:48:05 05/06/2024 15:42:55 Seizure 64375394 G40.89 With long hx of seizures, difficult to control, she has also had poor tolerance to meds.At last neuro appt at [facility] with Dr. Cordero she reported 3 small seizures a day with blurry vision, excessive blinking, and feeling off. Most don't progress to motor activity. She additional ly gets 3 convulsion s a week. This is apparently baseline for this pt.Continu e Xcopri 200 mg qd, phenobarbi karla 129.6 mg qhs , Clobazam 5 mg q am and 25 mg q pm, Aptiom 600 mg qhs, and gabapentin 300 mg BID.She has had no seizure activity so far while here.Monit or for seizures.F /U with Dr. Cordero ) as planned. Fracture o f tibia AND fibula 192730859 S82.51XD S82.61XD Recovering well from ORIF of right tib-fib fx.May WBATTo wear Cam boot at all times - encourage compliance .Continue APAP 975 mg TID scheduled and oxycodone 5 mg q 6 hrs prn.Contin ue Lovenox 40 mg qd for DVT prophylaxi s for 6 wks post-op..F /U with ortho as planned..P MR cummingsi ng Ibuprofen 800 mg bid x 2 wks, will add and monitor closely Anemia 455299175 D62 D64.89 Acute on chronic, improvingM onitor labs. Psychotic disorder 48341 001 F28 No evidence of delusions since here.Lizbeth nue gabapentin 300 mg BID and haldol 5 mg q am and 10 mg q pmMonitor mood and behaviorsP sych eval prn Major depr essive disorder 483660735 F32.89 As above. Hypomagnesemia 408256068 E83.42 Mg 1.6Continu e Mag Ox 400 mg qdMonitor levels Gastroesop hageal reflux disease without esophagitis 961317642 K21.9 No current sxs.Contin ue pantoprazo le 40 mg qdMonitor GI sxs. Irritable bowel syndrome 60743703 K58.9 Continue bentyl 10 mg qidMonitor GI sxs. Impaired cognition 51405 6002 R41.89 With poor short term recall regarding medical issues especially .Likely due to craniotomi es and frequent seizures.B IM was 05/08.HCP invoked 04/22/24Con tinue supportive care, expect decline.Mo nitor mood and behaviors. Psych consult prn. [id number] RADHA PAREKH NP [address] [address] 05/06/2024 12:39:48 05/07/2024 13:34:53 Seizure 82403586 G40.89 Long hx of seizures, difficult to control, with poor tolerance to meds.At last neuro appt at [facility] with Dr. Cordero she reported 3 small seizures a day with blurry vision, excessive blinking, and feeling off. Most don't progress to motor activity. She additional ly gets 3 convulsion s a week. This is baseline for this pt.Continu e with Xcopri 200 mg qd, phenobarbi karla 129.6 mg qhs , Clobazam 5 mg q am and 25 mg q pm, Aptiom 600 mg qhs, and gabapentin 300 mg BID.She has had no reported seizure activity so far while here.Lizbeth nue to monitor for seizures.F /U with Dr. Cordero ) as planned. Fracture o f tibia AND fibula 384765497 S82.51XD S82.61XD s/p ORIF of right tib-fib fx.Returne d from Ortho appt today - recommenda tions:ROM of knee, foot, ankle- no restrictio nsok to showerBoot with ambulation - encourage compliance Bactrim DS BID X 14 days for concern of cellulitis Monitor skin and if redness or pain worsens, send to ER for eval and IV ABT.Staple s removed, steri strips applied, ok to remove in 1 week.Lizbeth nue:APAP 975 mg TID scheduledo xycodone 5 mg q 6 hrs prn (taking occasional ly).Loveno x 40 mg qd for DVT prophylaxi s for 6 wks post-op.Ib uprofen 800mg BID for 2 weeks (05/16/24) then reeval.F/U with ortho as planned. Anemia 427888914 D62 D64.89 Acute on chronicMon itor labs. Psychotic disorder 93799 001 F28 No report of delusions since here.No change in mood or behaviors. Continues to be suspicious Continue:g abapentin 300 mg BIDhaldol 5 mg q am and 10 mg q pmMonitor mood and behaviorsP sych eval prn Major depr essive disorder 938541712 F32.89 No change in mood and behaviorsC ontinue:ga bapentin 300 mg BIDhaldol 5 mg q am and 10 mg q pmMonitor mood and behaviorsP sych eval prn Hypomagnesemia 008795024 E83.42 Mg 1.6Continu e Mag Ox 400 mg qdMonitor labs Gastroesop hageal reflux disease without esophagitis 148396448 K21.9 Asymptomat icContinue pantoprazo le 40 mg qdMonitor sxs. Irritable bowel syndrome 66907029 K58.9 Continue bentyl 10 mg qidNo reported GI sxs.Monito r GI sxs. Impaired cognition 14180 6002 R41.89 Continues with poor short term recall especially medical issuesLike ly due to frequent sz and hx of craniotomi esBIM was 05/08 on 04/22/24.HC P invoked 04/22/24Con tinue supportive care, expect decline.Mo nitor mood and behaviors. Psych consult prn. [id number] [facility] [address] 05/09/2024 13:11:48 05/16/2024 15:24:40 Fracture of tibia AND fibula 745841813 S82.51XD S82.61XD s/p ORIF of right tib-fib fx.on 05/06 ortho removed jacquelyn, steri strips were applied, ok to remove in 1 week.rec as followsROM of knee, foot, ankle- no restrictio nsok to showerBoot with ambulation - encourage compliance Bactrim DS BID X 14 days for concern of cellulitis Monitor skin and if redness or pain worsens, send to ER for eval and IV ABT.fu with vna and pt/ot prn outptConti nue:APAP 975 mg TID scheduledd c oxycodone 5 mg q 6 hrs prn (taking occasional ly). cont Lovenox 40 mg qd for DVT prophylaxi s for 6 wks post-op until 05/30/24 script sent and will need to have VNA help with injections . Ibuprofen 800mg BID for 2 weeks (05/16/24) then reeval.F/U with ortho as planned outpt and with pcp Seizure [id number] G40.89 Long hx of seizures, difficult to control, with poor tolerance to meds.At last neuro appt at [facility] with Dr. Cordero she reported 3 small seizures a day with blurry vision, excessive blinking, and feeling off. Most don't progress to motor activity. She additional ly gets 3 convulsion s a week. This is baseline for this pt.Continu e Xcopri 200 mg qd, phenobarbi karla 129.6 mg qhs , Clobazam 5 mg q am and 25 mg q pm, Aptiom 600 mg qhs, and gabapentin 300 mg BID.She has had no reported seizure activity so far while here.Lizbeth nue to monitor for seizures at homeF/U with Dr. Cordero ) as planned outpt and with pcp outpt Anemia [id number] D62 D64.89 Acute on chronicMon itor labs outpt per pcp Psychotic disorder 68564 001 F28 No report of delusions since here.No change in mood or behaviors. Continues to be suspicious at timesCont: gabapentin 300 mg BIDhaldol 5 mg q am and 10 mg q pmMonitor mood and behaviorsP sych eval prn outpt Major depr essive disorder [id number] F32.89 No change in mood and behaviorsC ont:gabape ntin 300 mg BIDhaldol 5 mg q am and 10 mg q pmMonitor mood and behaviorsP sych eval prn outpt Hypomagnesemia [id number] E83.42 Mg 1.6Continu e Mag Ox 400 mg qdMonitor labs outpt with pcp Gastroesop hageal reflux disease without esophagitis [id number] K21.9 Asymptomat icContinue pantoprazo le 40 mg qdMonitor sxs. outpt iw pcp Irritable bowel syndrome [id number] K58.9 Continue bentyl 10 mg qidNo reported GI sxs.Monito r GI sxs outpt with pcp Impaired cognition [id number] [id number] R41.89 Continues with poor short term recall especially medical issuesLike ly due to frequent sz and hx of craniotomi esBIM was 15 on 04/22/24.HC P invoked 04/22/24Con tinue supportive care, expect decline.Mo nitor mood and behaviors. Psych consult prn outptdaugh ter is helpful and has mortgage advisor to help with needs, vna Health Concerns Section Related Observation LastModified by Organization Detai ls LastModified Time None Recorded Concern Status LastModified by Organization Details LastModified Time None Recorded Advance Directives Directive Y: Payers Encounter Date Sequence Insurance Name Policy Number Policy Mims Covered Member ID Mims Member ID Guarantor Name 04/28/2024 2 [place] Nanci Luiz [id number] Nanci Luiz 04/28/2024 1 [place] [employer] Nanci Luiz [id number] Nanci Luiz 04/29/2024 2 [place] Nanci Luiz [id number] Nanci Luiz 04/29/2024 1 [place] [employer] Nanci Luiz [id number] Nanci Luiz 05/01/2024 2 [place] Nanci Luiz [id number] Nanci Luiz 05/01/2024 1 [place] [employer] Nanci Luiz [id number] Nanci Luiz 05/06/2024 2 [place] Nanci Luiz [id number] Nanci Luiz 05/06/2024 1 [place] Nanci Luiz [id number] Nanci Luiz 05/09/2024 2 [place] Nanci Luiz [id number] Nanci Luiz 05/09/2024 1 [place] [employer] Nanci Luiz [id number] Nanci Luiz Notes Date Note Type Note Provider Name and Address Organization Details Recorded Time 04/28/2024 text/html This is a 58 yo woman who is here for rehab after an acute hospitalization for a right tib-fib fx after a fall caused by a seizure.She presented to the [facility] ED on 04/16 after having a seizure and falling, resulting in RLE pain.Sister was in the next room and heard her fall and came immediately and noticed RLE deformity and called EMS.She was given ketamine in the ambulance.She reported having increased seizures lately and had an ecchymosis and laceration over left eye which was healing, from a fall a few days earlier.ED eval showed HTN, but otherwise vitals were WNL. Labs were non-acute.Imaging showed comminuted fractures of the distal diaphysis involving thetibia and fibula. There is a questionable fracture involving theposterior malleolus. Head and neck CTs showed chronic changes from previous craniotomy, but no acute changes.She was loaded with Keppra and had no further seizure activity.Neuro was consulted and recommended no changes to her baseline regimen, but said she should f/u as outpt. for consideration of possible vagus stimulator.Ortho took her to the OR on 04/18 for an ORIF.She tolerated procedure well.She was put on oxycodone and APAP for pain and enoxaparin for DVT prophylaxis.Post op her hgb dropped to 7.4 and she got 2U PRBCs, with recovery to 10.2.She was transferred here on 04/21. Of note, a brief hx of her seizure disorder from last neuro appt in [place]: refractory epilepsy and psychotic syndrome. 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 A February 2017 EMU admission captured multiple electrographic and electroclinical seizures despite ASDs polytherapy and VNS. She underwent further parietal corticectomy in March [address] Mcfadden with path c/w gliosis. Since here she has been working with rehab and doing well with [facility] for most activities.Tonight she is in bed dozing, she wakes with a suspicious look on her face. I see her with a danish speaking staff member.She tells me her leg hurts, but she has no other c/o. She says she doesn't want to take anything stronger than APAP.She asks me to put on gloves before I examine her. Her PMH includes hx of brain tumor s/p craniotomy x2, intractable epilepsy with poor response to meds, hx of T12 VCF, psychosis, hypomagnesemia, delusional d/o, UI, OAB, IBS, obesity, hx of hypotension, depression, polyarthralgia, ataxia, expressive aphasia, hyponatremia, and GERD Lavinia Munoz MD [address] [place] [address], [address], [place], [address], [place] [facility] [employer] 04/28/2024 19:24:46 04/29/2024 text/html Nanci is seen today for an acute visit. She is a 58 yo woman who is here for rehab after an acute hospitalization for a right tib-fib fx after a fall caused by a seizure.She presented to the [facility] ED on 04/16 after having a seizure and falling, resulting in RLE pain.Sister was in the next room and heard her fall and came immediately and noticed RLE deformity and called EMS.She was given ketamine in the ambulance.She reported having increased seizures lately and had an ecchymosis and laceration over left eye which was healing, from a fall a few days earlier.ED eval showed HTN, but otherwise vitals were WNL. Labs were non-acute.Imaging showed comminuted fractures of the distal diaphysis involving thetibia and fibula. There is a questionable fracture involving theposterior malleolus. Head and neck CTs showed chronic changes from previous craniotomy, but no acute changes.She was loaded with Keppra and had no further seizure activity.Neuro was consulted and recommended no changes to her baseline regimen, but said she should f/u as outpt. for consideration of possible vagus stimulator.Ortho took her to the OR on 04/18 for an ORIF.She tolerated procedure well.She was put on oxycodone and APAP for pain and enoxaparin for DVT prophylaxis.Post op her hgb dropped to 7.4 and she got 2U PRBCs, with recovery to 10.2.She was transferred here on 04/21. Of note, a brief hx of her seizure disorder from last neuro appt in [place]: refractory epilepsy and psychotic syndrome. 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 A February 2017 EMU admission captured multiple electrographic and electroclinical seizures despite ASDs polytherapy and VNS. She underwent further parietal corticectomy in March [address] Mcfadden with path c/w gliosis. Since here she has been working with rehab.Staff reporting she is non compliant with her boot.VSS, BP variable at times. Upon exam, Nanci is in bed, alert, grandson at bedside brushing her hair, able to translate. He main complaint is RLE pain, but declines change in pain meds. Asked about sz. activity, and she reported she had some last night, but staff unaware of this. Her PMH includes hx of brain tumor s/p craniotomy x2, intractable epilepsy with poor response to meds, hx of T12 VCF, psychosis, hypomagnesemia, delusional d/o, UI, OAB, IBS, obesity, hx of hypotension, depression, polyarthralgia, ataxia, expressive aphasia, hyponatremia, and GERD RADHA PAREKH, MELBA [address] [facility], [address], [place], [address], [facility] [employer] 04/29/2024 14:03:12 05/01/2024 text/html Nanci is seen today for an acute visit. She is a 58 yo woman who is here for rehab after an acute hospitalization for a right tib-fib fx after a fall caused by a seizure.She presented to the [facility] ED on 04/16 after having a seizure and falling, resulting in RLE pain.Sister was in the next room and heard her fall and came immediately and noticed RLE deformity and called EMS.She was given ketamine in the ambulance.She reported having increased seizures lately and had an ecchymosis and laceration over left eye which was healing, from a fall a few days earlier.ED eval showed HTN, but otherwise vitals were WNL. Labs were non-acute.Imaging showed comminuted fractures of the distal diaphysis involving thetibia and fibula. There is a questionable fracture involving theposterior malleolus. Head and neck CTs showed chronic changes from previous craniotomy, but no acute changes.She was loaded with Keppra and had no further seizure activity.Neuro was consulted and recommended no changes to her baseline regimen, but said she should f/u as outpt. for consideration of possible vagus stimulator.Ortho took her to the OR on 04/18 for an ORIF.She tolerated procedure well.She was put on oxycodone and APAP for pain and enoxaparin for DVT prophylaxis.Post op her hgb dropped to 7.4 and she got 2U PRBCs, with recovery to 10.2.She was transferred here on 04/21. Of note, a brief hx of her seizure disorder from last neuro appt in [place]: refractory epilepsy and psychotic syndrome. 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 A February 2017 EMU admission captured multiple electrographic and electroclinical seizures despite ASDs polytherapy and VNS. She underwent further parietal corticectomy in March [address] Mcfadden with path c/w gliosis. Since here she has been working off and on with rehab.Staff reporting she is still non compliant with her boot.Seen by PMR, sched. APAP and ibuprofen (800 mg bid x 2 wks) recommendedVSS, BP remains variable.Labs stable. Upon exam, Nanci is in bed, alert, holding sheets up near her head, eyeing me suspiciously. Brand Leader present during visit, her main complaint is RLE pain, declines pain meds when offered. All other responses are I am fine . Refused exam today. Her PMH includes hx of brain tumor s/p craniotomy x2, intractable epilepsy with poor response to meds, hx of T12 VCF, psychosis, hypomagnesemia, delusional d/o, UI, OAB, IBS, obesity, hx of hypotension, depression, polyarthralgia, ataxia, expressive aphasia, hyponatremia, and GERD RADHA PAREKH, MELBA [address] [facility], [address], [place], [address], [facility] 05/01/2024 13:07:38 05/06/2024 text/html Nanci is seen today for an acute visit. Felisha is a 58 yo woman who is here for rehab after hospitalization for a fall caused by a seizure that resulted in a right tib-fib fx. She presented to the [facility] ED on 04/16 after having a seizure and falling, resulting in RLE pain. Sister called EMS after noting RLE deformity, was given ketamine in ambulance. She has reported an increase in seizure activity and more frequent falls. VSS in ED with HTN, Labs were unremarkable. The Imaging showed a right fib-tib fx and a questionable fracture involving theposterior malleolus. Head and neck CTs showed no acute changes but chronic changes from previous craniotomy. While there she was given Keppra and had no further seizure activity. Neuro consulted but had no medication recommendations but felt she should follow up as outpt for possible vagus stimulator. Nanci underwent ORIF on 04/18 and she tolerated well. She has oxycodone and APAP for pain and enoxaparin for DVT prophylaxis. Post op hgb dropped to 7.4 and she received 2U PRBCs, with recovery to 10.2.She was transferred to [facility] on 04/21. Of note, a brief hx of her seizure disorder from last neuro appt in [place]: refractory epilepsy and psychotic syndrome. 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 A February 2017 EMU admission captured multiple electrographic and electroclinical seizures despite ASDs polytherapy and VNS. She underwent further parietal corticectomy in March [address] Mcfadden with path c/w gliosis. Since here Nanci has been working on and off with rehab, she is noncompliant with her boot, staff reports they find it off often. VSS, BP remains variable SBP's 111-140's. Last BP 8/2Labs stable. Upon exam, Nanci is in the BR, alert, she waved me off, she refused physical exam today, No, No, No . Case discussed with Nsg, no new issues or concerns other than compliance with boot. No sz. activity noed. Nanci just came back from Ortho follow up appt today, they removed her jacquelyn and applied steristrips. Returned with recommendations as follows: Bactrim DS BID X 14 days for cellulitis, monitor skin and if redness or pain worsens to send to ER for eval and IV ABT, Boot with ambulation, ROM of knee, foot, ankle- no restrictions, ok to shower, remove steristrips in 1 week. PMH includes hx of brain tumor s/p craniotomy x2, intractable epilepsy with poor response to meds, hx of T12 VCF, psychosis, hypomagnesemia, delusional d/o, UI, OAB, IBS, obesity, hx of hypotension, depression, polyarthralgia, ataxia, expressive aphasia, hyponatremia, and GERD RADHA PAREKH, MELBA [address] [facility], [address], [place], [address], [facility] [employer] 05/06/2024 20:31:24 05/09/2024 text/html Nanci is seen today for a discharge summary visit. PMH includes hx of brain tumor s/p craniotomy x2, intractable epilepsy with poor response to meds, hx of T12 VCF, psychosis, hypomagnesemia, delusional d/o, UI, OAB, IBS, obesity, hx of hypotension, depression, polyarthralgia, ataxia, expressive aphasia, hyponatremia, and GERD Felisha is a 58 yo woman who is here for rehab after hospitalization for a fall caused by a seizure that resulted in a right tib-fib fx. Felisha initially presented to the [facility] ED on 04/16 after having a seizure and falling, resulting in RLE pain. Sister called EMS after noting RLE deformity, was given ketamine in ambulance. She has reported an increase in seizure activity and more frequent falls. VSS in ED with HTN, Labs were unremarkable. The Imaging showed a right fib-tib fx and a questionable fracture involving theposterior malleolus. Head and neck CTs showed no acute changes but chronic changes from previous craniotomy. Nanci underwent ORIF on 04/18 and she tolerated well. She has oxycodone and APAP for pain and enoxaparin for DVT prophylaxis 05/30/24. Post op hgb dropped to 7.4 and she received 2U PRBCs, with recovery to 10.2.. Neuro consulted but had no medication recommendations but felt she should follow up as outpt for possible vagus stimulator. She was transferred to [facility] on 04/21 for continued care and rehab here. Nanci just came back from Ortho follow up appt on 05/06/24. Jacquelyn removed and applied steristrips. Returned with recommendations as follows: Bactrim DS BID X 14 days for cellulitis, monitor skin and if redness or pain worsens to send to ER for eval and IV ABT, Boot with ambulation, ROM of knee, foot, ankle- no restrictions, ok to shower, remove steristrips in 1 week. Since here Nanci has been working on and off with rehab, she is non compliant with her boot at times, staff reports they find it off often. Her labs and vitals are stable while here. On exam, Nanci is seen sitting up in her room in [facility]. She denies any pain and allows exam. Lungs clear. No redness or obvious s/s of infection noted to right extremity. She is healing well and remains with slight swelling. She is planned to go home with lovenox sc injections daily and vna planned to go out tomorrow. Script written. She will fu with pcp on 05/[address] Mcfarland @ 10:15am and ortho on appt planned aswell. Aminta Johnson NP [address] [facility], [address], [place], [address], [facility] - [employer] 05/09/2024 13:51:35 OBGyn Episode No OBEpisode recorded.
--- OUTSIDE RECORDS SUMMARY | 2024-12-30 14:49 | XMS_ITS | Clinical Summary ---
Author Organization [employer] [facility] Address [address] [place] [address] [address] [place] [address] Care Team Providers Care Store Specialist Name Role Phone Unavailable Primary Care Provider Unavailabl e Allergies Active Allergy Reactions Criticality Noted Date Comments Penicillins Nausea And Vomiting Low 01/10/2017 Medications No known medications Social History Tobacco Use Types Packs/Day Years Used Date Smoking Tobacco: Never Smokeless Tobacco: Never Tobacco Cessation:Counseling Given: Not Answered Alcohol Use Standard Drinks/Week Comments Defer 0 (1 standard drink = 0.6 oz pur e alcohol) Comments Unknown Sex and Gender Information Value Date Recorded Sex Assigned at Female 07/24/2022 10:37 AM EDT Legal Sex Female 10:37 AM EDT Gender Identity Female 07/24/2022 10:37 AM EDT Sexual Orientation Straight 07/24/2022 10 :37 AM EDT Plan of Treatment Health Maintenance Due Date Last Done Comments CT Colonography 1967 Colonoscopy 1967 Colorectal Cancer Screening 1967 Dental Oral Exam 1967 Dental Prophylaxis 1967 Dental X-Ray: Bitewings 1967 Dental X-Ray: Full Mouth 1967 Depression Screening 1967 FIT DNA/Cologuard 1967 FIT 1967 FOBT 1967 HIV Screening 1967 Lipid Panel 1967 SDOH Screening 1967 Sigmoidoscopy 1967 Alcohol/Substance Use Screening 1979 Hepatitis C Screening 12/29/1985 Hepatitis B Vaccines (1 of 3 - 19+ 3-dose series) 12/29/1986 Pap Smear 12/29/1988 Cervical Cancer Screening 12/29/1997 HPV/Cotest 12/29/1997 Mammogram 2007 Pneumococcal Vaccine: 50+ Years (1 of 1 - PCV) 12/29/2017 Zoster Vaccines (1 of 2) 12/29/2017 Tobacco Screening 11/23/2023 11/22/2022 COVID-19 Vaccine (3 - 2023- season) 2024 12/28/2020, 12/07/2020 Influenza Vaccine (#1) 2024 06/28/2023 DTaP/Tdap/Td Vaccines (5 - Td or Tdap) 11/01/2031 11/01/2021, 09/28/2020, 03/08/2020, Additional history exists RSV Patients and Patients Aged 60 years or older (1 - 1-dose 75+ series) 12/29/2042 HIB Vaccines Aged Out No longer eligi ble based on patient's age to complete this topic HPV Vaccines Aged Out No longer eligi ble based on patient's age to complete this topic Hepatitis A Vaccines Aged Out No long er eligible based on patient's age to complete this topic IPV Vaccines Aged Out No longer eligi ble based on patient's age to complete this topic Meningococcal Vaccine Aged Out No iraida bessie eligible based on patient's age to complete this topic RSV under 20 months Aged Out No longe r eligible based on patient's age to complete this topic Rotavirus Vaccines Aged Out No longer eligible based on patient's age to complete this topic Insurance [facility] STAND ADULT
--- OUTSIDE RECORDS SUMMARY | 2024-12-30 14:49 | XMS_ITS | Clinical Summary ---
Author Organization [facility] Address [address] [place] [address] Care Team Providers Care Airline Hostess Name Role Phone Unavailable Primary Care Provider Unavailabl e Social History Tobacco Use Types Packs/Day Years Used Date Smoking Tobacco: Never Assessed Comments Unknown Sex and Gender Information Value Date Recorded Sex Assigned at Not on file Legal Sex Female 5:44 AM EST Gender Identity Not on file Sexual Orientation Not on file Plan of Treatment Health Maintenance Due Date Last Done Comments Breast Cancer Screening 1967 DTaP,Tdap,and Td Vaccines (1 - Tdap) 12/29/1986 Hepatitis B Vaccines (1 of 3 - 19+ 3-dose series) 12/29/1986 Cervical Cancer Screening: P ap Smear 12/29/1988 Pneumococcal Vaccine: 50+ Ye ars (1 of 1 - PCV) 12/29/2017 Zoster Vaccines (1 of 2) 12/29/2017 Colorectal Cancer Screening: Colonoscopy 08/27/2022 Depression Screening 08/27/2022 HIV Screening 08/27/2022 Hepatitis C Screening 08/27/2022 Social Influencers of Health Screening 08/27/2022 COVID-19 Vaccine (2023-2 5 season) 2024 Influenza Vaccine (#1) 2024 HIB Vaccines Aged Out No longer eligi [...] on patient's age to complete this topic MMR Vaccines Aged Out No longer eligi ble based on patient's age to complete this topic Meningococcal ACWY Vaccine Aged Out N o longer eligible based on patient's age to complete this topic Meningococcal B Vaccine Aged Out No l onger eligible based on patient's age to complete this topic Pneumococcal Vaccine: Pediat rics (0 to 5 Years) and At-Risk Patients (6 to 64 Years) Aged Out No longer eligible b ased on patient's age to complete this topic RSV Immunization Patients Un annabella 20 months Aged Out No longer eligible b ased on patient's age to complete this topic Varicella Vaccines Aged Out No longer eligible based on patient's age to complete this topic
--- OUTSIDE RECORDS SUMMARY | 2024-12-30 14:49 | XMS_ITS | Patient Health Record ---
Author Organization [facility] Address [address] [place] [address] Care Team Providers Care Double Reamer Operator Name Role Phone Lara Mercado Primary Care Provider Jose De Jesus Mancini Jr Unavailable [phone] Reason For Referral No Information Plan Of Treatment No Information Insurance Providers Payer Name Payer Address Payer Phone Subscriber Number Group Number Insured Name Patient Relationship to Insured Coverage Start Date Coverage End Date MEDICARE OF [place] [address] [place] [id number] NICHELLE TRAN Self - patient is the insured MEDICAID OF [facility] [employer] [facility] [address] [place] [address] [id number] NICHELLE TRAN Self - patient is the insured
== END 2024-12-30 13:36 | disposition home or self-care (01) ==
PROVIDERS: PCP Internal Medicine; Visit Provider Nurse Practitioner
DX: K21.9 Gastro-esophageal reflux disease without esophagitis (principal); D12.6 Benign neoplasm of colon, unspecified; K59.00 Constipation, unspecified; R35.89 Other polyuria; R41.89 Other symptoms and signs involving cognitive functions and awareness; F22 Delusional disorders
CPT/HCPCS: 99214

== ENCOUNTER → 2024-12-30 12:11 | Outpatient (BNVA) | payer MEDICARE, MEDICAID, SELFPAY | PROVIDERS: PCP Internal Medicine; Visit Provider Nurse Practitioner | DX: K59.00 Constipation, unspecified (principal); F22 Delusional disorders; D12.6 Benign neoplasm of colon, unspecified; K21.9 Gastro-esophageal reflux disease without esophagitis; R35.89 Other polyuria; R41.89 Other symptoms and signs involving cognitive functions and awareness | CPT/HCPCS: 99212 ==

== ENCOUNTER 2025-01-12 10:35 | Outpatient (REF) | payer MEDICARE, MEDICAID, SELFPAY ==
--- OUTSIDE RECORDS SUMMARY | 2025-01-12 10:40 | XMS_ITS | Clinical Summary ---
Author Organization [facility] Address [address] [place] [address] Care Team Providers Care Bursar Name Role Phone Unavailable Primary Care Provider [...] [facility] Screening 08/27/2022 COVID-19 Vaccine ( - 2023-2 5 season) 2024 Influenza Vaccine (Season Ended) 2025 HIB Vaccines Aged Out No longer eligi [...]
--- OUTSIDE RECORDS SUMMARY | 2025-01-12 10:40 | XMS_ITS | Data Portability ---
Author Organization [facility] [employer] [facility], Main Office Address [address] [facility] [place] [address] Care Team Providers Care Paper Twister Tender Name Role Phone DULCE MARIA BRITO - 2ND FLOOR OTHER BRITTANY CARDENAS Primary Care Provider Assessment Encounter Date Assessment Date Assessment LastModified by Organization Details LastModified Time 05/06/2024 05/06/2024 I have seen and examined the patient independently and confirmed the findings above with the ENVIRONMENTAL TECHNOLOGY PROFESSOR student note. Management plan discussed with the ENVIRONMENTAL TECHNOLOGY PROFESSOR student personally. [email or web address] Not available 05/06/2024 14:53:50 Plan of Treatment [...] and Address Organization Details Recorded Time Seizure 14842410 Active 2023 RADHA PAREKH NP [address] [facility], [facility] [address], [place], [address], [facility] [employer] [facility] 4 13:12:57 Compressi on fracture of thoracic vertebra 420930198064 4 Active 2023 T 12 RADHA PAREKH NP [address] [facility], [address], [place], [address], [facility] [employer] [facility] 4 14:24:14 Psychotic disorder 63032539 Active 2023 RADHA PAREKH NP [address] [facility], [address], [place], [address], [facility] [employer] 4 14:24:23 Hypomagne semia 260828249 Active 2023 RADHA PAREKH NP [address], [address], [place], [address], [facility] [email or web address] [facility] 4 14:24:34 Delusiona l disorder 43394327 Active 2023 RADHA PAREKH NP [address], [address], [place], [address], [facility] [email or web address] [facility] 4 14:24:45 Urinary incontine nme 289481264 Active 2023 RADHA PAREKH NP [address], [address], [place], [address], [facility] [email or web address] [facility] 4 14:25:02 Overactiv e urinary bladder 703990140 Active 2023 RADHA PAREKH NP [address], [address], [place], [address], [facility] [email or web address] [facility] 4 14:25:10 Irritable bowel syndrome 17079941 Active 2023 RADHA PAREKH NP [address], [address], [place], [address], [employer] 4 14:25:16 Obese 523657928 Active 2023 RADHA PAREKH NP [address], [address], [place], [address], [facility] 4 14:25:54 Low blood pressure 83779208 Active 2023 RADHA PAREKH NP [address], [address], [place], [address], [facility] [email or web address] [facility] 4 14:26:04 Anemia 928972911 Active 2023 RADHA PAREKH NP [address], [address], [place], [address], [facility] 4 14:26:12 Major depressiv e disorder 113399350 Active 2023 RADHA PAREKH NP [address], [address], [place], [address], [employer] 4 14:26:30 Multiple joint pain 98623328 Active 2023 RADHA PAREKH NP [address] [facility], [address], [place], [address], [facility] [email or web address] [facility] 4 14:26:40 Ataxia 55225280 Active 2023 RADHA PAREKH NP [address] [facility], [address], [place], [address], [facility] 4 14:26:48 Expressiv e language disorder 894158017 Active 2023 RADHA PAREKH NP [address] [facility], [address], [place], [address], [employer] 4 14:27:23 Hyponatre mik 03679499 Active 2023 RADHA PAREKH NP [address] [facility], [address], [place], [address], [employer] 4 14:27:34 Gastroeso phageal reflux disease without esophagit is 488749786 Active 2023 RADHA PAREKH NP [address] [facility], [address], [place], [address], [employer] 4 14:27:49 Neoplasm of brain 976138884 Active 2023 History of, s/p craniotom y RADHA PAREKH NP [address] [facility], [address], [place], [address], [employer] 4 14:53:53 Fracture of tibia AND fibula 273682736 Active 2023 s/p IMN 04/18/24 Dr. Néstor PAREKH NP [address] [facility], [address], [place], [address], [employer] 4 14:54:33 Impaired cognition 393080723 Active 2023 Lavinia Munoz MD [address] [facility], [address], [place], [address], [employer] [facility] 4 17:07:04 Problem Notes None recorded. Medical Equipment None Reported. Allergies Allergen ID Allergen Name Allergen Category Reaction Reaction Severity Criticality Documentation Date Start Date Code Code System Note Provider Name and Address Organization Details Recorded Time 56228 Iodinated contrast media (substanc e) medicatio n Not available Not available Not available 04/22/2024 37090 2004 SNOMED Not Available Not Available Not Available 41291 Product containin g penicilli n (product) medicatio n Not available Not available Not available 04/22/2024 18637 8001 SNOMED Not Available Not Available Not Available 69779 Dilantin medicatio n Not available Not available [...] Updated DateTime 4 165.1 cm 30 kg/m2 41106.6 3 g 72 /min 17 /min 98 [degF] 98 % 98 % 141 mm[Hg] 96 mm[Hg] Lavinia Munoz MD [address] [facility] [address], [place], [address] , [employer] 4 15:55:10 Date Recorded Body height Heart rate Respiratory rate Body temperature Oxygen saturation Oxygen saturation in Arterial blood by Pulse oximetry Systolic blood pressure Diastolic blood pressure Provider Name and Address Organization Details Last Updated DateTime 4 165.1 cm 72 /min 17 /min 98 [degF] 98 % 98 % 141 mm[Hg] 96 mm[Hg] RADHA PAREKH NP [address] [facility] [address], [place], [address] , [employer] [facility] 4 13:55:54 Date Recorded Body height Heart rate Respiratory rate Body temperature Oxygen saturation Oxygen saturation in Arterial blood by Pulse oximetry Systolic blood pressure Diastolic blood pressure Provider Name and Address Organization Details Last Updated DateTime 4 165.1 cm 72 /min 17 /min 98 [degF] 98 % 98 % 141 mm[Hg] 96 mm[Hg] RADHA PAREKH NP [address] [facility], [address], [place], [address], [employer] [facility] 4 12:49:49 Date Recorded Body height Body mass index (BMI) Body weight Heart rate Respiratory rate Body temperature Oxygen saturation Oxygen saturation in Arterial blood by Pulse oximetry Systolic blood pressure Diastolic blood pressure Provider Name and Address Organization Details Last Updated DateTime 4 165.1 cm 30 kg/m2 63827.4 2 g 72 /min 17 /min 98 [degF] 98 % 98 % 141 mm[Hg] 96 mm[Hg] Irene [email or web address] [employer] [facility] 4 14:28:15 Date Recorded Body height Body mass index (BMI) Body weight Heart rate Respiratory rate Body temperature Oxygen saturation Oxygen saturation in Arterial blood by Pulse oximetry Systolic blood pressure Diastolic blood pressure Provider Name and Address Organization Details Last Updated DateTime 4 165.1 cm 30 kg/m2 68772.6 3 g 78 /min 18 /min 96.6 [degF] 98 % 98 % 98 mm[Hg] 60 mm[Hg] Aminta Johnson NP [address] [facility], [address], [place], [address], [employer] [facility] 4 13:12:27 Social History Question Answer Notes LastModified by Organizat ion Details LastModified Time Tobacco Smoking Status Never Smoker RADHA PAREKH NP [address] [facility], [address], [place], [address], [employer] [facility] 04/22/2024 14:28:36 Do You Have An Advance Directive? Yes Information not available 04/28/2024 What Is Your Level Of Alcohol Consumption? None [email or web address] Information not available 04/22/2024 What Is Your Code Status? Full Code [email or web address] Information not available 04/22/2024 Where Do You Live? Apartment With Daughter, Full Flight Of Stairs To Enter. Ambulates Ad Flori. 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 [email or web address] Information not available 04/22/2024 Legal Guardian? No Informati on not available 04/28/2024 Do You Have A Medical Power Of [employer] Wafers Marker? Yes Has HCP, Invoked 04/22/24 Information not available 04/28/2024 What Was The Date Of Your Most Recent Tobacco Screening? 04/22/2024 Information not available 04/22/2024 Do You Have An Out Of Hospital DNR? No Information not available 04/28/2024 Do You Use Any Illicit Or Recreational Drugs? No [email or web address] Information not available 04/22/2024 Has Tobacco Cessation Counseling Been Provided? No N/a As Pt Is Non-smoker Information not available 04/28/2024 Do You Or Have You Ever Used Any Other Forms Of Tobacco Or Nicotine? No [email or web address] Information not available 04/22/2024 Sex: Unknown Functional Status None recorded. Mental Status None recorded. Family History Relationship Description Onset Age of this Age Resolved Age Notes LastModified by Organization Details LastModified Time Father Heart disease [email or web address] Not available 2023 14:28:07 Mother Diabetes mellitus [email or web address] Not available 2023 14:28:16 Medical History No medical history recorded. Gynecological HistoryNo gynecological history recorded. Obstetrics History GPAL:G 0 P 0 0 0 0 Immunizations Vaccine Type Date Status Note Provider Nam e and Address Organization Details Recorded Time DTaP, unspecified formulation 10/30/2018 completed Jessica Bonner [facility] 04/22/2024 13:04:17 Tdap 03/08/2020 completed Jessica Bonner [facility] 04/22/2024 13:04:33 Tdap 09/28/2020 completed Jessica Bonner [facility] 04/22/2024 13:04:41 Tdap 11/01/2021 completed Jessica Bonner [facility] 04/22/2024 13:04:48 Td(adult) unspecified formulation 03/03/2018 completed Jessica Bonner [facility] 04/22/2024 13:05:02 influenza, unspecified formulation 06/28/2023 completed Jessica Bonner [facility] 04/22/2024 13:05:17 SARS-COV-2 (COVID-19) vaccine, UNSPECIFIED 12/07/2020 completed Jessica Bonner [facility] 04/22/2024 13:05:34 SARS-COV-2 (COVID-19) vaccine, UNSPECIFIED 12/28/2020 completed Jessica [facility] 04/22/2024 13:05:41 Past Encounters Encounter ID Performer Location Encounter Start Date Encounter Closed Date Diagnosis/Indication Diagnosis SNOMED-CT Code Diagnosis ICD10 Code Diagnosis Note [id number] RADHA PAREKH NP [address] [address] 04/22/2024 12:23:51 04/23/2024 13:07:55 Seizure 36373667 R56.9 Suspected sz. activity resulting in fall with injury.See n by Dr. Barnes ar [facility], no med changes made.Usual Neurologis t is Dr. Cordero in [place] ([facility]), missed last appt., encouraged daughter to reschedule in light of recent sz. activity.C urrent meds:Xcopr i 200 mg qdPhenobar bital 129.6 mg q HSClobazam 5 mg q am, 25 mg q pmAptiom 600 mg q HSGabapent in 300 mg bidMonitor neuro status closely Fracture o f tibia AND fibula 870610995 S82.201A Right tib-fib fx. resulting from fall [...] concerns, follow up in 2 wks. Anemia 306128550 D64.9 Post op, down to 7.4, transfused with 2 units PRBCs with improvemen t to 10.4Now on ACMonitor s/s active bleedingMo nitor CBCs Psychotic disorder 75492 001 F29 Continue home meds:gabap entin 300 mg bidhaldol 5 mg q am, 10 mg q pmInvoke HCP 04/22/24Mon itor mood and behaviorsP sych eval prn Major depr essive disorder 069656124 F32.9 Not on antidepres santsMonit or mood and behaviors Hypomagnesemia 125499180 E83.42 Continue Mag Ox 400 mg qdLast Mg. level 1.7, monitor. Gastroesop hageal reflux disease without esophagitis 248681578 K21.9 Continue pantoprazo le 40 mg qdMonitor GIsx. Irritable bowel syndrome 10921808 K58.9 Continue bentyl 10 mg qidMonitor GI sx. [id number] RADHA PAREKH NP [address] [address] 04/24/2024 11:21:09 04/25/2024 15:37:36 Seizure 53299659 R56.9 Suspected sz. activity resulting in fall with injury.See n by Dr. Barnes ar [facility], no med changes made.Usual Neurologis t is Dr. Cordero in [place] ([facility]), missed last appt., encouraged daughter to reschedule in light of recent sz. activity.C urrent meds:Xcopr i 200 mg qdPhenobar bital 129.6 mg q HSClobazam 5 mg q am, 25 mg q pmAptiom 600 mg q HSGabapent in 300 mg bidMonitor neuro status closely, no sz. activity so far while here. Fracture o f tibia AND fibula 952167594 S82.201A Right tib-fib fx. resulting from fall [...] concerns, follow up in 2 wks. Anemia 233895417 D64.9 Post op, down to 7.4, transfused with 2 units PRBCs with improvemen t to 10.4Curren t hgb 9.9.Now on ACMonitor s/s active bleedingMo nitor CBCs Psychotic disorder 90717 001 F29 Continue home meds:gabap entin 300 mg bidhaldol 5 mg q am, 10 mg q pmInvoke HCP 04/22/24Mon itor mood and behaviorsP sych eval prn Major depr essive disorder 276910840 F32.9 Not on antidepres santsMonit or mood and behaviors Hypomagnesemia 360708102 E83.42 Continue Mag Ox 400 mg qdLast Mg. level 1.7, monitor. Gastroesop hageal reflux disease without esophagitis 103173425 K21.9 Continue pantoprazo le 40 mg qdMonitor GIsx. Irritable bowel syndrome 60569798 K58.9 Continue bentyl 10 mg qidMonitor GI sx. [id number] Lavinia Munoz MD [address] [address] 04/28/2024 15:38:43 05/12/2024 14:58:50 Seizure 13239183 G40.89 With long hx of seizures, difficult to control, she has also had poor tolerance to meds.At last neuro appt at [facility] with Dr. Cordero she reported 3 small [...] planned. Fracture o f tibia AND fibula 001097401 S82.51XD S82.61XD Recovering well from ORIF of right tib-fib fx.May WBATTo wear Cam boot at all timesConti nue APAP 975 mg TID scheduled and oxycodone 5 mg q 6 hrs prn.Contin ue Lovenox 40 mg qd for DVT prophylaxi s for 6 wks post-op..F /U with ortho as planned.. Anemia 074642956 D62 D64.89 Acute on chronic.Wa s stable as of 04/24, no labs done today.Clari tor labs.Consi annabella adding iron. Psychotic disorder 74530 001 F28 No evidence of delusions since here.Lizbeth nue gabapentin 300 mg BID and haldol 5 mg q am and 10 mg q pmMonitor mood and behaviorsP sych eval prn Major depr essive disorder 499169947 F32.89 As above. Hypomagnesemia 888360515 E83.42 Continue Mag Ox 400 mg qdMonitor levels Gastroesop hageal reflux disease without esophagitis 995376158 K21.9 No current sxs.Contin ue pantoprazo le 40 mg qdMonitor GI sxs. Irritable bowel syndrome 78976860 K58.9 Continue bentyl 10 mg qidMonitor GI sxs. Impaired cognition 95458 6002 R41.89 With poor short term recall regarding medical issues especially .Likely due to craniotomi es and frequent seizures.B IM was 05/08.HCP invoked 04/22/24Con tinue supportive care, expect decline.Mo nitor mood and behaviors. Psych consult prn. [id number] RADHA PAREKH NP [address] [address] 04/29/2024 10:41:26 04/30/2024 19:12:03 Seizure 53506690 G40.89 With long hx of seizures, difficult to control, she has also had poor tolerance to meds.At last neuro appt at [facility] with Dr. Cordero she reported 3 small [...] planned. Fracture o f tibia AND fibula 505092318 S82.51XD S82.61XD Recovering well from ORIF of right tib-fib fx.May WBATTo wear Cam boot at all times - encourage compliance .Continue APAP 975 mg TID scheduled and oxycodone 5 mg q 6 hrs prn.Contin ue Lovenox 40 mg qd for DVT prophylaxi s for 6 wks post-op..F /U with ortho as planned.. Anemia 958164392 D62 D64.89 Acute on chronic.Wa s stable as of 04/24, repeat labs 05/05Monito r labs.Consi annabella adding iron. Psychotic disorder 59100 001 F28 No evidence of delusions since here.Lizbeth nue gabapentin 300 mg BID and haldol 5 mg q am and 10 mg q pmMonitor mood and behaviorsP sych eval prn Major depr essive disorder 434513508 F32.89 As above. Hypomagnesemia 411623254 E83.42 Continue Mag Ox 400 mg qdMonitor levels Gastroesop hageal reflux disease without esophagitis 736247314 K21.9 No current sxs.Contin ue pantoprazo le 40 mg qdMonitor GI sxs. Irritable bowel syndrome 68781036 K58.9 Continue bentyl 10 mg qidMonitor GI sxs. Impaired cognition 34522 6002 R41.89 With poor short term recall regarding medical issues especially .Likely due to craniotomi es and frequent seizures.B IM was 05/08.HCP invoked 04/22/24Con tinue supportive care, expect decline.Mo nitor mood and behaviors. Psych consult prn. [id number] RADHA PAREKH NP [address] [address] 05/01/2024 12:48:05 05/06/2024 15:42:55 Seizure 91288201 G40.89 With long hx of seizures, difficult to control, she has also had poor tolerance to meds.At last neuro appt at [facility] with Dr. Cordero she reported 3 small [...] planned. Fracture o f tibia AND fibula 852696030 S82.51XD S82.61XD Recovering well from ORIF of [...] wks, will add and monitor closely Anemia 475905677 D62 D64.89 Acute on chronic, improvingM onitor labs. Psychotic disorder 00077 001 F28 No evidence of delusions since here.Lizbeth nue gabapentin 300 mg BID and haldol 5 mg q am and 10 mg q pmMonitor mood and behaviorsP sych eval prn Major depr essive disorder 230527875 F32.89 As above. Hypomagnesemia 720586988 E83.42 Mg 1.6Continu e Mag Ox 400 mg qdMonitor levels Gastroesop hageal reflux disease without esophagitis 353996592 K21.9 No current sxs.Contin ue pantoprazo le 40 mg qdMonitor GI sxs. Irritable bowel syndrome 21066047 K58.9 Continue bentyl 10 mg qidMonitor GI sxs. Impaired cognition 65064 6002 R41.89 With poor short term recall regarding medical issues especially .Likely due to craniotomi es and frequent seizures.B IM was 05/08.HCP invoked 04/22/24Con tinue supportive care, expect decline.Mo nitor mood and behaviors. Psych consult prn. [id number] RADHA PAREKH NP [address] [address] 05/06/2024 12:39:48 05/07/2024 13:34:53 Seizure 88808498 G40.89 Long hx of seizures, difficult to control, with poor tolerance to meds.At last neuro appt at [facility] with Dr. Cordero she reported 3 small [...] monitor for seizures.F /U with Dr. Cordero ([phone]) as planned. Fracture o f tibia AND fibula 289465523 S82.51XD S82.61XD s/p ORIF of right tib-fib [...] then reeval.F/U with ortho as planned. Anemia 137197085 D62 D64.89 Acute on chronicMon itor labs. Psychotic disorder 55464 001 F28 No report of delusions since here.No change in mood or behaviors. Continues to be suspicious Continue:g abapentin 300 mg BIDhaldol 5 mg q am and 10 mg q pmMonitor mood and behaviorsP sych eval prn Major depr essive disorder 858260835 F32.89 No change in mood and behaviorsC ontinue:ga bapentin 300 mg BIDhaldol 5 mg q am and 10 mg q pmMonitor mood and behaviorsP sych eval prn Hypomagnesemia 567980262 E83.42 Mg 1.6Continu e Mag Ox 400 mg qdMonitor labs Gastroesop hageal reflux disease without esophagitis 087254339 K21.9 Asymptomat icContinue pantoprazo le 40 mg qdMonitor sxs. Irritable bowel syndrome 12367329 K58.9 Continue bentyl 10 mg qidNo reported GI sxs.Monito r GI sxs. Impaired cognition 64520 6002 R41.89 Continues with poor short term recall especially medical issuesLike ly due to frequent sz and hx of craniotomi esBIM was 05/08 on 04/22/24.HC P invoked 04/22/24Con tinue supportive care, expect decline.Mo nitor mood and behaviors. Psych consult prn. [id number] [facility] [address] 05/09/2024 13:11:48 05/16/2024 15:24:40 Fracture of tibia AND fibula 745806206 S82.51XD S82.61XD s/p ORIF of right tib-fib [...] as planned outpt and with pcp Seizure 65417155 G40.89 Long hx of seizures, difficult to control, with poor tolerance to meds.At last neuro appt at [facility] with Dr. Cordero she reported 3 small [...] planned outpt and with pcp outpt Anemia 933240672 D62 D64.89 Acute on chronicMon itor labs outpt per pcp Psychotic disorder 87150 001 F28 No report of delusions since here.No change in mood or behaviors. Continues to be suspicious at timesCont: gabapentin 300 mg BIDhaldol 5 mg q am and 10 mg q pmMonitor mood and behaviorsP sych eval prn outpt Major depr essive disorder 409877723 F32.89 No change in mood and behaviorsC ont:gabape ntin 300 mg BIDhaldol 5 mg q am and 10 mg q pmMonitor mood and behaviorsP sych eval prn outpt Hypomagnesemia 109510762 E83.42 Mg 1.6Continu e Mag Ox 400 mg qdMonitor labs outpt with pcp Gastroesop hageal reflux disease without esophagitis 753927538 K21.9 Asymptomat icContinue pantoprazo le 40 mg qdMonitor sxs. outpt iw pcp Irritable bowel syndrome 46807442 K58.9 Continue bentyl 10 mg qidNo reported GI sxs.Monito r GI sxs outpt with pcp Impaired cognition 29400 6002 R41.89 Continues with poor short term recall especially medical issuesLike ly due to frequent sz and hx of craniotomi esBIM was 15 on 04/22/24.HC P invoked 04/22/24Con tinue supportive care, expect decline.Mo nitor mood and behaviors. Psych consult prn outptdaugh ter is helpful and has industrial machine system technician to help with needs, vna Health Concerns Section Related Observation LastModified by Organization Detai ls LastModified Time None Recorded Concern Status LastModified by Organization Details LastModified Time None Recorded Advance Directives Directive Y: Payers Encounter Date Sequence Insurance Name Policy Number Policy Mims Covered Member ID Mims Member ID Guarantor Name 04/28/2024 1 [place] [employer] Nanci Luiz [id number] Nanci Luiz 04/28/2024 2 [place] Nanci Luiz [id number] Nanci Luiz 04/29/2024 1 [place] Nanci Luiz [id number] Nanci Luiz 04/29/2024 2 [place] Nanci Luiz [id number] Nanci Luiz 05/01/2024 1 [place] [employer] Nanci Luiz [id number] Nanci Luiz 05/01/2024 2 [place] Nanci Luiz [id number] Nanci Luiz 05/06/2024 1 [place] [employer] Nanci Luiz [id number] Nanci Luiz 05/06/2024 2 [place] Nanci Luiz [id number] Nanci Luiz 05/09/2024 1 [place] [employer] Nanci Luiz [id number] Nanci Luiz 05/09/2024 2 [place] Nanci Luiz [id number] Nanci Luiz Notes Date Note Type Note Provider Name and Address Organization Details Recorded Time 04/28/2024 text/html This is a 58 yo woman who is here for rehab after an acute hospitalization for a right tib-fib fx after a fall caused by a seizure.She presented to the [facility] ED on 04/16 after having a seizure [...] seizure disorder from last neuro appt in [place]: refractory epilepsy and psychotic syndrome. 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 A February 2017 EMU admission captured multiple [...] her face. I see her with a tanzanian speaking staff member.She tells me her leg [...] aphasia, hyponatremia, and GERD Lavinia Munoz MD [address] [place] [address], [address], [place], [address], [place] [facility] [employer] 04/28/2024 19:24:46 04/29/2024 text/html Nanci is seen today for an acute visit. She is a 58 yo woman who is here for rehab after an acute hospitalization for a right tib-fib fx after a fall caused by a seizure.She presented to the [facility] ED on 04/16 after having a seizure [...] seizure disorder from last neuro appt in [place]: refractory epilepsy and psychotic syndrome. 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 A February 2017 EMU admission captured multiple [...] hyponatremia, and GERD RADHA PAREKH, MELBA [address] [facility], [address], [place], [address], [facility] [employer] 04/29/2024 14:03:12 05/01/2024 text/html Nanci is seen today for an acute visit. She is a 58 yo woman who is here for rehab after an acute hospitalization for a right tib-fib fx after a fall caused by a seizure.She presented to the [facility] on 04/16 after having a seizure [...] seizure disorder from last neuro appt in [place]: refractory epilepsy and psychotic syndrome. 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 A February 2017 EMU admission captured multiple [...] up near her head, eyeing me suspiciously. Radiologist Physician present during visit, her main complaint is [...] hyponatremia, and GERD RADHA PAREKH, MELBA [address] [facility], [address], [place], [address], [facility] 05/01/2024 13:07:38 05/06/2024 text/html Nanci is seen today for an acute visit. Felisha is a 58 yo woman who is here for rehab after hospitalization for a fall caused by a seizure that resulted in a right tib-fib fx. She presented to the [facility] on 04/16 after having a seizure [...] with recovery to 10.2.She was transferred to [facility] on 04/21. Of note, a brief hx of her seizure disorder from last neuro appt in [place]: refractory epilepsy and psychotic syndrome. 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 A February 2017 EMU admission captured multiple [...] hyponatremia, and GERD RADHA PAREKH, MELBA [address] [facility], [address], [place], [address], [facility] [employer] 05/06/2024 20:31:24 05/09/2024 text/html Nanci is seen [...] tib-fib fx. Felisha initially presented to the [facility] on 04/16 after having a seizure [...] possible vagus stimulator. She was transferred to [facility] on 04/21 for continued care and [...] seen sitting up in her room in [facility]. She denies any pain and allows exam. [...] appt planned aswell. Aminta Johnson NP [address] [facility], [address], [place], [address], [facility] - [employer] 05/09/2024 13:51:35 OBGyn Episode No OBEpisode recorded.
--- OUTSIDE RECORDS SUMMARY | 2025-01-12 10:40 | XMS_ITS ---
Author Organization [facility] Address [address] [place] [address] Care Team Providers Care Printing Mechanist Name Role Phone Lara Mercado Primary Care Provider Unavailab Jose De Jesus Aguilar Jr Unavailable [phone] REASON FOR VISIT cancelled appt for today Encounters Encounter Location Date Provider Diagnosis [facility] [address] [place] [address] 09/05/[address] Plan Of Treatment No Information Progress Notes * TAURUS TRANWENDREOB: 968 (57 yo F)Acc No.[id number]:09/05/2023 Patient:?NICHELLE TRAN :1965???Age:57 Y???Sex:Female Address:[address] [place] [address], [place] [address] * true * Date:? Generated for Kiara geller/Corinne/eTransmitting on:?01/12/2025 10:39 AM EDT
--- OUTSIDE RECORDS SUMMARY | 2025-01-12 10:40 | XMS_ITS | Clinical Summary ---
Author Organization [facility] Facility Address [address] [place] [address] Care Team Providers Care Upstream Biomanufacturing Technician Name Role Phone Lara Mercado MD Primary Care Provider [phone] Social History Tobacco Use Types Packs/Day Years [...] (1 of 3 - 19+ 3-dose series) 12/29 Colorectal Cancer Screening: Annual FOBT 12/29/2016 Colorectal Cancer Screening: Colonoscopy 12/29/2016 Colorectal Cancer Screening: Sigmoidoscopy 12/29/2016 Pneumococcal Vaccine: 50+ Years (1 of 1 - PCV) 018 Influenza Vaccine (Season Ended) 2025 Insurance Medicare Medicaid [place] Medicare Medicaid [place] Care Teams Upstream Biomanufacturing Technician Relationship Specialty Start Date End Date Lara Mercado MD [address] [place] [address] PCP - General Internal Medicine 11/11/20
--- OUTSIDE RECORDS SUMMARY | 2025-01-12 10:40 | XMS_ITS ---
Author Organization [facility] Address [address] [place] [address] Care Team Providers Care Machine Hostler Name Role Phone Lara Mercado Primary Care Provider Unavailab Jose De Jesus Aguilar Jr Unavailable [phone] REASON FOR VISIT Patient presents today for a COLON SCREENING Encounters Encounter Location Date Provider Diagnosis [facility] [address] [place] [address] 09/05/[address] Plan Of Treatment No Information Progress Notes * ISRAEL TRANOB: [birth year] (59 yo F)Acc No.[id number]:09/05/2023 Progress Notes Patient:?NICHELLE TRAN Provider:?Jose De Jesus St MD :1965???Age:57 Y???Sex:Female D ate:09/05/2023 Address:[address] [place] [address] Pcp:Lara Rivas Subjective: * Chief Complaints: * [...] MD Date:?1 11/06/2022 Generated for Carliei yimi/Corinne/eTransmitting on:?01/12/2025 10:39 AM EDT
--- OUTSIDE RECORDS SUMMARY | 2025-01-12 10:40 | XMS_ITS | Patient Health Record ---
Author Organization [facility] Address [address] [place] [address] Care Team Providers Care Clinical Training Specialist Name Role Phone Lara Mercado Primary Care Provider Jose De Jesus Mancini Jr Unavailable Reason For Referral No Information Plan Of Treatment No Information Insurance Providers Payer Name Payer Address Payer Phone Subscriber Number Group Number Insured Name Patient Relationship to Insured Coverage Start Date Coverage End Date MEDICARE OF [place] [address] [place] [address] [id number] NICHELLE TRAN Self - patient is the insured MEDICAID [facility] [address] [place] [phone] [id number] NICHELLE TRAN Self - patient is the insured
--- OUTSIDE RECORDS SUMMARY | 2025-01-12 10:40 | XMS_ITS | Clinical Summary ---
Author Organization [facility] Address [address] [place] [address] 7[address] [place] [address] Care Team Providers Care Telephone Order Clerk Name Role Phone Unavailable Primary Care Provider [...] patient's age to complete this topic Insurance [facility] MED[facility] STAND ADULT
--- OUTSIDE RECORDS SUMMARY | 2025-01-12 10:40 | XMS_ITS | Encounter Summary ---
Author Organization [facility] [facility] Address [address] [place] [address] 7 [place] [address] Care Team Providers Care Instrument Technologist Name Role Phone Unavailable Primary Care Provider Unavailabl e Encounter Details Date Type Department Care Team (Latest Contact Info) Description 09/12/2021 Abstract [facility] Dental, Provider, DDS Social History Tobacco [...]
[2025-01-12 10:57] LABS: MANUAL DIFF FLAG NO
[2025-01-12 11:47] LABS: Appearance Urine Clear; Color Urine Yellow; Glucose Urine UA Negative (Negative); Leukocyte Esterase Urine Trace (Negative); Nitrite Urine Negative (Negative); UMIC TRIGGER UACC YES; Urine Blood Negative (Negative); Urine Ketones Trace mg/dL (Negative); Urine Protein Negative (Neg-Trace)
[2025-01-12 11:52] LABS: Basophils Percent Auto 0.9 % (0-2); Eosinophils Absolute Auto 0.1 X10*3/uL (0.0-0.4); Eosinophils Percent Auto 1.4 % (0-4); Hematocrit 38.5 % (37.0-47.0); Hemoglobin 12.9 g/dl (12.0-16.0); Imm Gran Abs Auto 0.01 X10*3/uL (0.00-0.03); Imm Gran Pct Auto 0.2 % (0.0-0.4); Lymphocytes Absolute Auto 0.9 X10*3/uL (1.2-4.9); Lymphocytes Percent Auto 20.6 % (20-40); Mean Corpuscular HGB Conc 33.5 g/dl (31.0-35.0); Mean Corpuscular Hemoglobin 31.5 pg (27.0-33.0); Mean Corpuscular Volume 94.1 fL (80.0-98.0); Mean Platelet Volume 9.6 fL (9.4-12.3); Monocytes Absolute Auto 0.5 X10*3/uL (0.1-1.2); Monocytes Percent Auto 12.3 % (2-11); Neutrophils Absolute Auto 2.8 x10*3/uL (2.0-8.3); Neutrophils Percent Auto 64.6 % (45-73); Platelet Count 235 X10*3/uL (160-400); Red Blood Count 4.09 X10*6/uL (4.20-5.50); Red Cell Distribution Width 13.7 % (11.0-16.0); White Blood Count 4.3 X10*3/uL (4.8-10.8)
[2025-01-12 11:53] LABS: Bacteria Urine None Seen (None Seen); Hyaline Casts Urine 0-2 /LPF (0-2); RBC Urine 0-2 /HPF (0-2); Squamous Epithelial Cell Urine 0-2 /HPF (0-2); WBC Urine 0-5 /HPF (0-5)
[2025-01-12 12:30] LABS: Alanine Aminotransferase 20 U/L (0-31); Albumin Level 4.2 g/dL (3.5-5.0); Alkaline Phosphatase 131 U/L (39-117); Anion Gap 12 (12-20); Aspartate Amino Transferase 18 U/L (5-31); Bilirubin Total 0.2 mg/dL (0.0-1.0); Blood Urea Nitrogen 11 mg/dL (9-16); Calcium 9.1 mg/dL (8.4-10.2); Carbon Dioxide 28 mmol/L (22-29); Chloride 97 mmol/L (96-108); Estimated Glomerular Filt Rate > 60; Potassium 4.3 mmol/L (3.3-5.1); Sodium 133 mmol/L (135-145); Total Protein 7.3 g/dL (6.5-8.0)
[2025-01-12 12:57] LABS: Glucose Random 57 mg/dL (60-115)
== END 2025-01-12 10:36 | disposition home or self-care (01) ==
LOC: HO.LAB 10:35
PROVIDERS: PCP Internal Medicine; Visit Provider Nurse Practitioner
DX: D12.6 Benign neoplasm of colon, unspecified (principal); Z98.890 Other specified postprocedural states
CPT/HCPCS: 36415; 80053; 81001; 85025

== ENCOUNTER 2025-01-13 12:09 | Outpatient (AMB) | payer MEDICARE, MEDICAID, SELFPAY ==
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
[2025-01-13 13:05] VITALS: BP 118/80; BMI 27.4
--- OUTSIDE RECORDS SUMMARY | 2025-01-13 14:34 | XMS_ITS | Clinical Summary ---
Author Organization [employer] [facility] Address [address] [place] [address] [address]t [place] [address] Care Team Providers Care Top Lift And Automatic Window Repairer Name Role Phone Unavailable Primary Care Provider [...] patient's age to complete this topic Insurance [facility] ST[facility] AD[facility]
--- OUTSIDE RECORDS SUMMARY | 2025-01-13 14:34 | XMS_ITS | Clinical Summary ---
Author Organization [facility] Facility Address [address] [place] [address] Care Team Providers Care Extension Associate Name Role Phone Lara Mercado MD Primary Care Provider [phone] Social History Tobacco Use Types Packs/Day Years [...] Medicaid [place] Medicare Medicaid [place] Care Teams Extension Associate Relationship Specialty Start Date End Date Lara Mercado MD [address] [place] [address] PCP - General Internal Medicine 11/11/20
--- OUTSIDE RECORDS SUMMARY | 2025-01-13 14:34 | XMS_ITS | Encounter Summary ---
Author Organization [facility] Address [address] [place] [address] 7 [place] [address] Care Team Providers Care Harp Maker Name Role Phone Unavailable Primary Care Provider Unavailabl e Encounter Details Date Type Department Care Team (Latest Contact Info) Description 09/12/2021 Abstract [facility] CONVERSIONS Dental, Provider, DDS Social History [...]
--- OUTSIDE RECORDS SUMMARY | 2025-01-13 14:34 | XMS_ITS | Clinical Summary ---
Author Organization [facility] Address [address] [place] [address] Care Team Providers Care City Engineer Name Role Phone Unavailable Primary Care Provider [...]
== END 2025-01-13 13:42 | disposition home or self-care (01) ==
LOC: HO.HMCH 12:09
PROVIDERS: PCP Internal Medicine; Visit Provider Internal Medicine
DX: E16.2 Hypoglycemia, unspecified (principal); R56.9 Unspecified convulsions; F33.0 Major depressive disorder, recurrent, mild; K59.00 Constipation, unspecified; R73.01 Impaired fasting glucose

== ENCOUNTER → 2025-01-13 12:09 | Outpatient (BNVA) | payer MEDICARE, MEDICAID, SELFPAY | PROVIDERS: PCP Internal Medicine; Visit Provider Internal Medicine | DX: E16.2 Hypoglycemia, unspecified (principal); R56.9 Unspecified convulsions; F33.0 Major depressive disorder, recurrent, mild; K59.00 Constipation, unspecified | CPT/HCPCS: 82948; 96127; 99212 ==

== ENCOUNTER 2025-01-19 11:21 | Observation (INO) | payer MEDICARE, MEDICAID, SELFPAY ==
[2025-01-19] VITALS (7 sets, daily range): BP systolic 121–189; BP diastolic 67–97; PULSE 80–104; RESP 16–90; TEMP 36.2–37.2; O2SAT 97–100; BMI 28.9; BMI 28.8
--- NOTE | 2025-01-19 | ECG_ITS ---
Test Reason : seizure Blood Pressure : */* mmHG Vent. Rate : 92 BPM Atrial Rate : 92 BPM P-R Int : 158 ms QRS Dur : 76 ms QT Int : 348 ms P-R-T Axes : 14 47 29 degrees QTcB Int : 430 ms Normal sinus rhythm Normal ECG When compared with ECG of 15-Jul-2024 11:53, No significant change was found Referred By: Generic ED Physician Electronically Signed By: Yuri Burnette
--- NOTE | ~2025-01-19 | XR_ITS ---
EXAMINATION: XR CHEST CLINICAL INFORMATION: sob COMPARISON: July 15, 2024. TECHNIQUE: Frontal view of the chest was obtained. FINDINGS: Prominence of the interstitial markings. No consolidation, pleural effusion or pneumothorax. Cardiomediastinal silhouette size is normal. Metallic device overlapping the peripheral left hemithorax. Multilevel thoracic spondylosis. Complications overlapping the left lower neck/cervical thoracic junction. Degenerative changes in the right shoulder with the likely old traumatic deformity. XR/XR chest 1V IMPRESSION: No acute airspace disease. Chronic interstitial lung disease cannot be excluded. Electronically signed by: Serafin Tapia MD 01/19/2025 02:25 PM EDT
--- NOTE | ~2025-01-19 | CT_ITS ---
EXAMINATION: CT HEAD WITHOUT CONTRAST CLINICAL INFORMATION: Multiple seizures COMPARISON: July 23, 2024. TECHNIQUE: Contiguous axial imaging was performed from the skull base to vertex without intravenous administration of contrast. This CT examination was performed using dose optimization techniques as appropriate, variously including the following: *Automated exposure control *Adjustment of mA and/or kV according to patient size (this includes techniques or standardized protocols for targeted exams where dose is matched to indication/reason for exam; i.e. extremities or head) *Use of iterative reconstruction technique DLP: 631 mGy-cm FINDINGS: Status post left parietal craniectomy/cranioplasty. No acute fracture, bony calvarium. Old traumatic deformities, nasal bones. Skull base is grossly intact. CSF attenuation volume loss involving the intra-axial or the extra-axial compartment of the left parietal occipital region. No acute intracranial hemorrhage, mass effect, midline shift, hydrocephalus or herniation. Vasquez-white matter differentiation is normal. Calcified plaques in the cavernous supracavernous segments both ICAs. 3 mm exostosis in the left anterior cranial fossa/frontal convexity. Sellar/suprasellar region demonstrated no gross masses. Craniocervical junction is intact mucosal thickening, ethmoid air cells and maxillary sinuses. Tympanic cavities and mastoid cells are aerated.. CT/CT head/brain wo IV con IMPRESSION: No acute fracture, bony calvarium. No acute intracranial hemorrhage. Status post craniectomy/cranioplasty, left parietal with associated the macrocystic encephalomalacia, left parietal occipital. Electronically signed by: Serafin Tapia MD 01/19/2025 02:44 PM EDT
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
[2025-01-19 13:23] LABS: MANUAL DIFF FLAG NO
--- NOTE | 2025-01-19 13:25 | PC.NURSE ---
ekg performed. urine/labs obtained/sent to lab. seizure precautions remain in place. plan of care ongoing. call jung placed within reach.
[2025-01-19 13:27] LABS: Appearance Urine Clear; Color Urine Yellow; Glucose Urine UA Negative (Negative); Leukocyte Esterase Urine Negative (Negative); Nitrite Urine Negative (Negative); Specific Gravity - Urine <= 1.005 (1.005-1.025); Urine Blood Negative (Negative); Urine Ketones Negative (Negative); Urine Protein Negative (Neg-Trace)
[2025-01-19 13:29] LABS: Bacteria Urine None Seen (None Seen); Basophils Percent Auto 0.3 % (0-2); Hematocrit 36.6 % (37.0-47.0); Hemoglobin 12.6 g/dl (12.0-16.0); Hyaline Casts Urine 0-2 /LPF (0-2); Imm Gran Abs Auto 0.04 X10*3/uL (0.00-0.03); Imm Gran Pct Auto 0.4 % (0.0-0.4); Lymphocytes Absolute Auto 0.6 X10*3/uL (1.2-4.9); Lymphocytes Percent Auto 5.8 % (20-40); Mean Corpuscular HGB Conc 34.4 g/dl (31.0-35.0); Mean Corpuscular Hemoglobin 31.3 pg (27.0-33.0); Mean Corpuscular Volume 90.8 fL (80.0-98.0); Mean Platelet Volume 9.2 fL (9.4-12.3); Monocytes Absolute Auto 0.6 X10*3/uL (0.1-1.2); Monocytes Percent Auto 6.4 % (2-11); Neutrophils Absolute Auto 8.5 x10*3/uL (2.0-8.3); Neutrophils Percent Auto 87.1 % (45-73); Platelet Count 233 X10*3/uL (160-400); RBC Urine 0-2 /HPF (0-2); Red Blood Count 4.03 X10*6/uL (4.20-5.50); Red Cell Distribution Width 13.2 % (11.0-16.0); Squamous Epithelial Cell Urine 0-2 /HPF (0-2); WBC Urine 0-5 /HPF (0-5); White Blood Count 9.8 X10*3/uL (4.8-10.8)
[2025-01-19 13:47] LABS: Alanine Aminotransferase 23 U/L (0-31); Albumin Level 4.2 g/dL (3.5-5.0); Alkaline Phosphatase 146 U/L (39-117); Anion Gap 12 (12-20); Aspartate Amino Transferase 19 U/L (5-31); Bilirubin Total 0.3 mg/dL (0.0-1.0); Blood Urea Nitrogen 6 mg/dL (9-16); Calcium 9.1 mg/dL (8.4-10.2); Carbon Dioxide 26 mmol/L (22-29); Chloride 98 mmol/L (96-108); Estimated Glomerular Filt Rate > 60; Glucose Random 104 mg/dL (60-115); Magnesium 1.8 mg/dL (1.6-2.6); Potassium 4.4 mmol/L (3.3-5.1); Sodium 132 mmol/L (135-145); Total Protein 7.4 g/dL (6.5-8.0)
[2025-01-19 13:56] LABS: Lactic Acid 2.3 mmol/L (0.5-2.0)
--- NOTE | 2025-01-19 14:18 | PC.NURSE ---
provider notified/aware of elevated lactic level at this time. no new orders at this time.
[2025-01-19 15:21] LABS: Reflex Lactate? Lactic Acid Added
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
--- OUTSIDE RECORDS SUMMARY | 2025-01-19 16:08 | XMS_ITS | Clinical Summary ---
Author Organization [facility] Facility Address [address] [place] [address] Care Team Providers Care Internet Marketing Specialist Name Role Phone Lara Mercado MD Primary Care Provider [phone] Social History Tobacco Use Types Packs/Day Years [...] [place] Care Teams Internet Marketing Specialist Relationship Specialty Start Date End Date Lara Mercado MD [address] [place] [address] PCP - General Internal Medicine 11/11/20
--- OUTSIDE RECORDS SUMMARY | 2025-01-19 16:08 | XMS_ITS | Data Portability ---
Author Organization [facility] [employer] [facility], Main Office Address [address], [address] [place] [address] Care Team Providers Care Station Agent Name Role Phone DULCE MARIA BRITO - 2ND FLOOR OTHER BRITTANY CARDENAS Primary Care Provider Assessment Encounter Date Assessment Date Assessment LastModified by Organization Details LastModified Time 05/06/2024 05/06/2024 I have seen and examined the patient independently and confirmed the findings above with the RESEARCH NURSE PRACTITIONER student note. Management plan discussed with the RESEARCH NURSE PRACTITIONER student personally. [email or web address] Not available 05/06/2024 14:53:50 Plan of Treatment [...] and Address Organization Details Recorded Time Seizure [id number] Active 2023 RADHA PAREKH NP [address] [facility] [facility] [address], [place], [address], [facility] [employer] [facility] 4 13:12:57 Compressi on fracture of thoracic vertebra 120889411744 4 Active 2023 T 12 RADHA PAREKH NP [address] [facility], [address], [place], [address], [facility] [employer] [facility] 4 14:24:14 Psychotic disorder 18974620 Active 2023 RADHA PAREKH NP [address], [address], [place], [address], [facility] [employer] 4 14:24:23 Hypomagne semia 491883495 Active 2023 RADHA PAREKH NP [address], [place], [address], [facility] [employer] [facility] 4 14:24:34 Delusiona l disorder 03958949 Active 2023 RADHA PAREKH NP [address], [address], [place], [address], [facility] [employer] [facility] 4 14:24:45 Urinary incontine are 974796780 Active 2023 RADHA PAREKH NP [address], [place], [address], [facility] [employer] [facility] 4 14:25:02 Overactiv e urinary bladder 978281051 Active 2023 RADHA PAREKH NP [address], [place], [address], [facility] [employer] [facility] 4 14:25:10 Irritable bowel syndrome 59847579 Active 2023 RADHA PAREKH NP [address], [place], [address], [facility] [employer] [facility] 4 14:25:16 Obese 667998058 Active 2023 RADHA PAREKH NP [address], [place], [address], [facility] [employer] [facility] 4 14:25:54 Low blood pressure 17351156 Active 2023 RADHA PAREKH NP [address], [address], [place], [address], [facility] [employer] [facility] 4 14:26:04 Anemia 114489744 Active 2023 RADHA PAREKH NP [address], [place], [address], [facility] [employer] [facility] 4 14:26:12 Major depressiv e disorder 215477353 Active 2023 RADHA PAREKH NP [address], [place], [address], [employer] [facility] 4 14:26:30 Pain of multiple joints 97470793 Active 2023 RADHA PAREKH NP [address] [facility], [address], [place], [address], [facility] [employer] [facility] 4 14:26:40 Ataxia 60344286 Active 2023 RADHA PAREKH NP [address] [facility] [facility] [address], [address], [place], [address], [employer] [facility] 4 14:26:48 Expressiv e language disorder 064149962 Active 2023 RADHA PAREKH NP [address] [facility] [address], [address], [place], [address], [employer] [facility] 4 14:27:23 Hyponatre mik 68301393 Active 2023 RADHA PAREKH NP [address] [facility] [address], [address], [place], [address], [employer] [facility] 4 14:27:34 Gastroeso phageal reflux disease without esophagit is 012612446 Active 2023 RADHA PAREKH NP [address], [address], [place], [address], [employer] 4 14:27:49 Neoplasm of brain 400490399 Active 2023 History of, s/p craniotom y RADHA PAREKH NP [address], [address], [place], [address], [facility] 4 14:53:53 Fracture of tibia AND fibula 538896261 Active 2023 s/p IMN 04/18/24 Dr. Néstor PAREKH NP [address], [address], [place], [address], [employer] [facility] 4 14:54:33 Impaired cognition 315471557 Active 2023 Lavinia Munoz MD [address], [address], [place], [address], [facility] 4 17:07:04 Problem Notes None recorded. Medical Equipment None Reported. Allergies Allergen ID Allergen Name Allergen Category Reaction Reaction Severity Criticality Documentation Date Start Date Code Code System Note Provider Name and Address Organization Details Recorded Time 09663 Iodinated contrast media (substanc e) medicatio n Not available Not available Not available 04/22/2024 27440 2003 SNOMED Not Available Not Available Not Available 01903 Product containin g penicilli n (product) medicatio n Not available Not available Not available 04/22/2024 68232 8001 SNOMED Not Available Not Available Not Available 70581 Dilantin medicatio n Not available Not available [...] Updated DateTime 4 165.1 cm 30 kg/m2 51492.6 3 g 72 /min 17 /min 98 [degF] 98 % 98 % 141 mm[Hg] 96 mm[Hg] Lavinia Munoz MD [address] [facility] [address], [place], [address] , [facility] 4 15:55:10 Date Recorded Body height Heart rate Respiratory rate Body temperature Oxygen saturation Oxygen saturation in Arterial blood by Pulse oximetry Systolic blood pressure Diastolic blood pressure Provider Name and Address Organization Details Last Updated DateTime 4 165.1 cm 72 /min 17 /min 98 [degF] 98 % 98 % 141 mm[Hg] 96 mm[Hg] RADHA PAREKH NP [address] [facility] [address], [place], [address] , [facility] 4 13:55:54 Date Recorded Body height Heart rate Respiratory rate Body temperature Oxygen saturation Oxygen saturation in Arterial blood by Pulse oximetry Systolic blood pressure Diastolic blood pressure Provider Name and Address Organization Details Last Updated DateTime 4 165.1 cm 72 /min 17 /min 98 [degF] 98 % 98 % 141 mm[Hg] 96 mm[Hg] RADHA PAREKH NP [address] [facility], [address], [place], [address], [facility] 4 12:49:49 Date Recorded Body height Body mass index (BMI) Body weight Heart rate Respiratory rate Body temperature Oxygen saturation Oxygen saturation in Arterial blood by Pulse oximetry Systolic blood pressure Diastolic blood pressure Provider Name and Address Organization Details Last Updated DateTime 4 165.1 cm 30 kg/m2 53803.4 2 g 72 /min 17 /min 98 [degF] 98 % 98 % 141 mm[Hg] 96 mm[Hg] Irene mondragon [facility] 4 14:28:15 Date Recorded Body height Body mass index (BMI) Body weight Heart rate Respiratory rate Body temperature Oxygen saturation Oxygen saturation in Arterial blood by Pulse oximetry Systolic blood pressure Diastolic blood pressure Provider Name and Address Organization Details Last Updated DateTime 4 165.1 cm 30 kg/m2 69094.6 3 g 78 /min 18 /min 96.6 [degF] 98 % 98 % 98 mm[Hg] 60 mm[Hg] Aminta Johnson NP [address] [facility], [address], [place], [address], [facility] 4 13:12:27 Social History Question Answer Notes LastModified by Organizat ion Details LastModified Time Tobacco Smoking Status Never Smoker RADHA PAREKH NP [address] [facility], [address], [place], [address], [facility] 04/22/2024 14:28:36 Do You Have An Advance Directive? Yes Information not available 04/28/2024 What Is Your Level Of Alcohol Consumption? None [email or web address] Information not available 04/22/2024 What Is Your Code Status? Full Code [email or web address] Information not available 04/22/2024 Where Do You Live? Apartment With Daughter, Full Flight Of Stairs To Enter. Ambulates Ad Flori. Has computer software engineer During The Day While Family Works. [email or web address] Information not available 04/22/2024 Legal Guardian? No Informati on not available 04/28/2024 Do You Have A Medical Power Of Family Centered Specialist? Yes Has HCP, Invoked 04/22/24 Information not available 04/28/2024 What Was The Date Of Your Most Recent Tobacco Screening? 04/22/2024 [email or web address] Information not available 04/22/2024 Do You Have An Out Of Hospital DNR? No Information not available 04/28/2024 Do You Use Any Illicit Or Recreational Drugs? No [email or web address] Information not available 04/22/2024 Has Tobacco Cessation Counseling Been Provided? No N/a As Pt Is Non-smoker Information not available 04/28/2024 Do You Or Have You Ever Used Any Other Forms Of Tobacco Or Nicotine? No [email or web address] Information not available 04/22/2024 Sex: Unknown Functional Status None recorded. Mental Status None recorded. Family History Relationship Description Onset Age of this Age Resolved Age Notes LastModified by Organization Details LastModified Time Father Heart disease Not available 2023 14:28:07 Mother Diabetes mellitus [email or web address] Not available 2023 14:28:16 Medical History No medical history recorded. Gynecological HistoryNo gynecological history recorded. Obstetrics History GPAL:G 0 P 0 0 0 0 Immunizations Vaccine Type Date Status Note Provider Nam e and Address Organization Details Recorded Time DTaP, unspecified formulation 10/30/2018 completed Jessica Bonner [facility] 04/22/2024 13:04:17 Tdap 03/08/2020 completed Jessica Bonner [facility] 04/22/2024 13:04:33 Tdap 09/28/2020 completed Jessica Bonner [facility] 04/22/2024 13:04:41 Tdap 11/01/2021 completed Jessica ashby [facility] 04/22/2024 13:04:48 Td(adult) unspecified formulation 03/03/2018 completed Jessica Bonner [facility] 04/22/2024 13:05:02 influenza, unspecified formulation 06/28/2023 completed Jessica Bonner [facility] 04/22/2024 13:05:17 SARS-COV-2 (COVID-19) vaccine, UNSPECIFIED 12/07/2020 completed Jessicamadelyn Bonner [facility] 04/22/2024 13:05:34 SARS-COV-2 (COVID-19) vaccine, UNSPECIFIED 12/28/2020 completed Jessica [facility] 04/22/2024 13:05:41 Past Encounters Encounter ID Performer Location Encounter Start Date Encounter Closed Date Diagnosis/Indication Diagnosis SNOMED-CT Code Diagnosis ICD10 Code Diagnosis Note [id number] RADHA PAREKH NP [address] [address] 04/22/2024 12:23:51 04/23/2024 13:07:55 Seizure 98053952 R56.9 Suspected sz. activity resulting in fall with injury.[place] [facility] med changes made.Usual Neurologis t is Dr. Cordero in [place] ([facility]), missed last appt., encouraged daughter to reschedule in light of recent sz. activity.C urrent meds:Xcopr i 200 mg qdPhenobar bital 129.6 mg q HSClobazam 5 mg q am, 25 mg q pmAptiom 600 mg q HSGabapent in 300 mg bidMonitor neuro status closely Fracture o f tibia AND fibula 439211448 S82.201A Right tib-fib fx. resulting from fall at home.Under went IMN 04/18 by britt Cat. Rebecca goode at all timesDCD to remain in place.love nox 40 mg qd x 42 days for ACAPAP 975 mg tid scheduled and oxycodone 5 mg q 6 hrs prn for pain mgmt. - monitor use and effect, adjust as needed.PT OT eval and tx.Goal is to return home.Updat e Ortho with concerns, follow up in 2 wks. Anemia 966680589 D64.9 Post op, down to 7.4, transfused with 2 units PRBCs with improvemen t to 10.4Now on ACMonitor s/s active bleedingMo nitor CBCs Psychotic disorder 78415 001 F29 Continue home meds:gabap entin 300 mg bidhaldol 5 mg q am, 10 mg q pmInvoke HCP 04/22/24Mon itor mood and behaviorsP sych eval prn Major depr essive disorder 133577875 F32.9 Not on antidepres santsMonit or mood and behaviors Hypomagnesemia 980685856 E83.42 Continue Mag Ox 400 mg qdLast Mg. level 1.7, monitor. Gastroesop hageal reflux disease without esophagitis 629243461 K21.9 Continue pantoprazo le 40 mg qdMonitor GIsx. Irritable bowel syndrome 64418353 K58.9 Continue bentyl 10 mg qidMonitor GI sx. [id number] RADHA PAREKH NP [address] [address] 04/24/2024 11:21:09 04/25/2024 15:37:36 Seizure 25396025 R56.9 Suspected sz. activity resulting in fall with injury.[place]. [place] [facility] med changes made.Usual Neurologis t is Dr. Cordero in [place] ([facility]), missed last appt., encouraged daughter to reschedule in light of recent sz. activity.C urrent meds:Xcopr i 200 mg qdPhenobar bital 129.6 mg q HSClobazam 5 mg q am, 25 mg q pmAptiom 600 mg q HSGabapent in 300 mg bidMonitor neuro status closely, no sz. activity so far while here. Fracture o f tibia AND fibula 250753520 S82.201A Right tib-fib fx. resulting from fall [...] concerns, follow up in 2 wks. Anemia 627622738 D64.9 Post op, down to 7.4, transfused with 2 units PRBCs with improvemen t to 10.4Curren t hgb 9.9.Now on ACMonitor s/s active bleedingMo nitor CBCs Psychotic disorder 50388 001 F29 Continue home meds:gabap entin 300 mg bidhaldol 5 mg q am, 10 mg q pmInvoke HCP 04/22/24Mon itor mood and behaviorsP sych eval prn Major depr essive disorder 987421799 F32.9 Not on antidepres santsMonit or mood and behaviors Hypomagnesemia 490766498 E83.42 Continue Mag Ox 400 mg qdLast Mg. level 1.7, monitor. Gastroesop hageal reflux disease without esophagitis 767784418 K21.9 Continue pantoprazo le 40 mg qdMonitor GIsx. Irritable bowel syndrome 62547967 K58.9 Continue bentyl 10 mg qidMonitor GI sx. [id number] Lavinia Munoz MD [address] [address] 04/28/2024 15:38:43 05/12/2024 14:58:50 Seizure 32634083 G40.89 With long hx of seizures, difficult to control, she has also had poor tolerance to meds.At last neuro appt at [facility] with Dr. Cordero she reported 3 small [...] planned. Fracture o f tibia AND fibula 551406902 S82.51XD S82.61XD Recovering well from ORIF of right tib-fib fx.May WBATTo wear Cam boot at all timesConti nue APAP 975 mg TID scheduled and oxycodone 5 mg q 6 hrs prn.Contin ue Lovenox 40 mg qd for DVT prophylaxi s for 6 wks post-op..F /U with ortho as planned.. Anemia 840918551 D62 D64.89 Acute on chronic.Wa s stable as of 04/24, no labs done today.Clari tor labs.Consi annabella adding iron. Psychotic disorder 44973 001 F28 No evidence of delusions since here.Lizbeth nue gabapentin 300 mg BID and haldol 5 mg q am and 10 mg q pmMonitor mood and behaviorsP sych eval prn Major depr essive disorder 490745476 F32.89 As above. Hypomagnesemia 777277914 E83.42 Continue Mag Ox 400 mg qdMonitor levels Gastroesop hageal reflux disease without esophagitis 528684144 K21.9 No current sxs.Contin ue pantoprazo le 40 mg qdMonitor GI sxs. Irritable bowel syndrome 04684385 K58.9 Continue bentyl 10 mg qidMonitor GI sxs. Impaired cognition 39515 6002 R41.89 With poor short term recall regarding medical issues especially .Likely due to craniotomi es and frequent seizures.B IM was 05/08.HCP invoked 04/22/24Con tinue supportive care, expect decline.Mo nitor mood and behaviors. Psych consult prn. [id number] RADHA PAREKH NP [address] [address] 04/29/2024 10:41:26 04/30/2024 19:12:03 Seizure 93913219 G40.89 With long hx of seizures, difficult to control, she has also had poor tolerance to meds.At last neuro appt at [facility] with Dr. Cordero she reported 3 small [...] or for seizures.F /U with Dr. Cordero ([phone]) as planned. Fracture o f tibia AND fibula 214313845 S82.51XD S82.61XD Recovering well from ORIF of right tib-fib fx.May WBATTo wear Cam boot at all times - encourage compliance .Continue APAP 975 mg TID scheduled and oxycodone 5 mg q 6 hrs prn.Contin ue Lovenox 40 mg qd for DVT prophylaxi s for 6 wks post-op..F /U with ortho as planned.. Anemia 835004059 D62 D64.89 Acute on chronic.Wa s stable as of 04/24, repeat labs 05/05Monito r labs.Consi annabella adding iron. Psychotic disorder 44182 001 F28 No evidence of delusions since here.Lizbeth nue gabapentin 300 mg BID and haldol 5 mg q am and 10 mg q pmMonitor mood and behaviorsP sych eval prn Major depr essive disorder 073392412 F32.89 As above. Hypomagnesemia 525883978 E83.42 Continue Mag Ox 400 mg qdMonitor levels Gastroesop hageal reflux disease without esophagitis 639917773 K21.9 No current sxs.Contin ue pantoprazo le 40 mg qdMonitor GI sxs. Irritable bowel syndrome 67295598 K58.9 Continue bentyl 10 mg qidMonitor GI sxs. Impaired cognition 65849 6002 R41.89 With poor short term recall regarding medical issues especially .Likely due to craniotomi es and frequent seizures.B IM was 05/08.HCP invoked 04/22/24Con tinue supportive care, expect decline.Mo nitor mood and behaviors. Psych consult prn. [id number] RADHA PAREKH NP [address] [address] 05/01/2024 12:48:05 05/06/2024 15:42:55 Seizure 17372184 G40.89 With long hx of seizures, difficult to control, she has also had poor tolerance to meds.At last neuro appt at [facility] with Dr. Cordero she reported 3 small [...] planned. Fracture o f tibia AND fibula 340464969 S82.51XD S82.61XD Recovering well from ORIF of right tib-fib fx.May WBATTo wear Cam boot at all times - encourage compliance .Continue APAP 975 mg TID scheduled and oxycodone 5 mg q 6 hrs prn.Contin ue Lovenox 40 mg qd for DVT prophylaxi s for 6 wks post-op..F /U with ortho as planned..P MR enid ng Ibuprofen 800 mg bid x 2 wks, will add and monitor closely Anemia 120698805 D62 D64.89 Acute on chronic, improvingM onitor labs. Psychotic disorder 55714 001 F28 No evidence of delusions since here.Lizbeth nue gabapentin 300 mg BID and haldol 5 mg q am and 10 mg q pmMonitor mood and behaviorsP sych eval prn Major depr essive disorder 094129909 F32.89 As above. Hypomagnesemia 169031735 E83.42 Mg 1.6Continu e Mag Ox 400 mg qdMonitor levels Gastroesop hageal reflux disease without esophagitis 439784261 K21.9 No current sxs.Contin ue pantoprazo le 40 mg qdMonitor GI sxs. Irritable bowel syndrome 96024244 K58.9 Continue bentyl 10 mg qidMonitor GI sxs. Impaired cognition 48646 6002 R41.89 With poor short term recall regarding medical issues especially .Likely due to craniotomi es and frequent seizures.B IM was 05/08.HCP invoked 04/22/24Con tinue supportive care, expect decline.Mo nitor mood and behaviors. Psych consult prn. [id number] RADHA PAREKH NP [address] [address] 05/06/2024 12:39:48 05/07/2024 13:34:53 Seizure 17085221 G40.89 Long hx of seizures, difficult to control, with poor tolerance to meds.At last neuro appt at [facility] with Dr. Cordero she reported 3 small [...] planned. Fracture o f tibia AND fibula 010599243 S82.51XD S82.61XD s/p ORIF of right tib-fib [...] then reeval.F/U with ortho as planned. Anemia 882101040 D62 D64.89 Acute on chronicMon itor labs. Psychotic disorder 49846 001 F28 No report of delusions since here.No change in mood or behaviors. Continues to be suspicious Continue:g abapentin 300 mg BIDhaldol 5 mg q am and 10 mg q pmMonitor mood and behaviorsP sych eval prn Major depr essive disorder 534058043 F32.89 No change in mood and behaviorsC ontinue:ga bapentin 300 mg BIDhaldol 5 mg q am and 10 mg q pmMonitor mood and behaviorsP sych eval prn Hypomagnesemia 190579651 E83.42 Mg 1.6Continu e Mag Ox 400 mg qdMonitor labs Gastroesop hageal reflux disease without esophagitis 282617300 K21.9 Asymptomat icContinue pantoprazo le 40 mg qdMonitor sxs. Irritable bowel syndrome 71535078 K58.9 Continue bentyl 10 mg qidNo reported GI sxs.Monito r GI sxs. Impaired cognition 03242 6002 R41.89 Continues with poor short term recall especially medical issuesLike ly due to frequent sz and hx of craniotomi esBIM was 05/08 on 04/22/24.HC P invoked 04/22/24Con tinue supportive care, expect decline.Mo nitor mood and behaviors. Psych consult prn. [id number] Aminta Johnson NP [address] [place] [address] 05/09/2024 13:11:48 05/16/2024 15:24:40 Fracture of tibia AND fibula 430285533 S82.51XD S82.61XD s/p ORIF of right tib-fib [...] as planned outpt and with pcp Seizure 23691268 G40.89 Long hx of seizures, difficult to control, with poor tolerance to meds.At last neuro appt at [facility] with Dr. Cordero she reported 3 small [...] planned outpt and with pcp outpt Anemia 538991681 D62 D64.89 Acute on chronicMon itor labs outpt per pcp Psychotic disorder 25037 001 F28 No report of delusions since here.No change in mood or behaviors. Continues to be suspicious at timesCont: gabapentin 300 mg BIDhaldol 5 mg q am and 10 mg q pmMonitor mood and behaviorsP sych eval prn outpt Major depr essive disorder 671538941 F32.89 No change in mood and behaviorsC ont:gabape ntin 300 mg BIDhaldol 5 mg q am and 10 mg q pmMonitor mood and behaviorsP sych eval prn outpt Hypomagnesemia 629971253 E83.42 Mg 1.6Continu e Mag Ox 400 mg qdMonitor labs outpt with pcp Gastroesop hageal reflux disease without esophagitis 835527987 K21.9 Asymptomat icContinue pantoprazo le 40 mg qdMonitor sxs. outpt iw pcp Irritable bowel syndrome 50424015 K58.9 Continue bentyl 10 mg qidNo reported GI sxs.Monito r GI sxs outpt with pcp Impaired cognition 71123 6002 R41.89 Continues with poor short term recall especially medical issuesLike ly due to frequent sz and hx of craniotomi esBIM was 15 on 04/22/24.HC P invoked 04/22/24Con tinue supportive care, expect decline.Mo nitor mood and behaviors. Psych consult prn outptdaugh ter is helpful and has med asst to help with needs, vna Health Concerns Section Related Observation LastModified by Organization Detai ls LastModified Time None Recorded Concern Status LastModified by Organization Details LastModified Time None Recorded Advance Directives Directive Y: Payers Encounter Date Sequence Insurance Name Policy Number Policy Mims Covered Member ID Mims Member ID Guarantor Name 04/28/2024 2 [place] Nanci Luiz [id number] Nanci Luiz 04/28/2024 1 [place] [employer] Nanci Luiz [id number] Nanci Luiz 04/29/2024 2 [place] Nanci Luiz [id number] Nanci Luiz 04/29/2024 1 [place] [employer] Nanci Luiz [id number] Nanci Luiz 05/01/2024 2 [place] Nanci Luiz [id number] Nanci Luiz 05/01/2024 1 [place] [employer] Nanci Luiz [id number] Nanci Luiz 05/06/2024 2 [place] Nanci Luiz [id number] Nanci Luiz 05/06/2024 1 [place] [employer] Nanci Luiz [id number] Nanci Luiz 05/09/2024 2 [place] Nanci Luiz [id number] Nanci Luiz 05/09/2024 1 [place] [employer] Nanci Luiz [id number] Nanci Luiz Notes Date Note Type Note Provider Name and Address Organization Details Recorded Time 04/28/2024 text/html This is a 58 yo woman who is here for rehab after an acute hospitalization for a right tib-fib fx after a fall caused by a seizure.She [place] [facility] [place] after having a seizure [...] seizure disorder from last neuro appt in [place]: refractory epilepsy and psychotic syndrome. 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 A February 2017 EMU admission captured multiple [...] her face. I see her with a icelandic speaking staff member.She tells me her leg [...] aphasia, hyponatremia, and GERD Lavinia Munoz MD [address] [place] [address], [address], [place], [address], [place] [employer] 04/28/2024 19:24:46 04/29/2024 text/html Nanci is seen today for an acute visit. She is a 58 yo woman who is here for rehab after an acute hospitalization for a right tib-fib fx after a fall caused by a seizure.She [place] [facility] [place] after having a seizure [...] seizure disorder from last neuro appt in [place]: refractory epilepsy and psychotic syndrome. 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 A February 2017 EMU admission captured multiple [...] hyponatremia, and GERD RADHA PAREKH, MELBA [address], [address], [place], [address], [facility] [employer] 04/29/2024 14:03:12 05/01/2024 text/html Nanci is seen today for an acute visit. She is a 58 yo woman who is here for rehab after an acute hospitalization for a right tib-fib fx after a fall caused by a seizure.She presented to [place] [facility] [place] after having a seizure [...] seizure disorder from last neuro appt in [place]: refractory epilepsy and psychotic syndrome. 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 A February 2017 EMU admission captured multiple [...] up near her head, eyeing me suspiciously. Latin American Studies Director present during visit, her main complaint is [...] hyponatremia, and GERD RADHA PAREKH, MELBA [address], [address], [place], [address], [facility] 05/01/2024 13:07:38 05/06/2024 text/html Nanci is seen today for an acute visit. Felisha is a 58 yo woman who is here for rehab after hospitalization for a fall caused by a seizure that resulted in a right tib-fib fx. She presented to [place] [facility] on [place]16 after having a seizure [...] with recovery to 10.2.She was transferred to [facility] on 04/21. Of note, a brief hx of her seizure disorder from last neuro appt in [place]: refractory epilepsy and psychotic syndrome. 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 A February 2017 EMU admission captured multiple [...] hyponatremia, and GERD RADHA PAREKH, MELBA [address], [address], [place], [address], [facility] 05/06/2024 20:31:24 05/09/2024 text/html Nanci is seen [...] tib-fib fx. Felisha initially presented to [place] [facility] on [place] after having a seizure [...] possible vagus stimulator. She was transferred to [facility] on 04/21 for continued care and rehab [...] seen sitting up in her room in [facility]. She denies any pain and allows exam. [...] appt planned aswell. Aminta Johnson NP [address], [address], [place], [address], [facility] - [employer] 05/09/2024 13:51:35 OBGyn Episode No OBEpisode recorded.
--- OUTSIDE RECORDS SUMMARY | 2025-01-19 16:08 | XMS_ITS | Clinical Summary ---
Author Organization [employer] [facility] Address [address] [place] [address] [address] [place] [address] Care Team Providers Care Medical Education Manager Name Role Phone Unavailable Primary Care Provider [...] patient's age to complete this topic Insurance [facility] STAND ADULT
--- OUTSIDE RECORDS SUMMARY | 2025-01-19 16:08 | XMS_ITS | Clinical Summary ---
Author Organization [facility] Address [address] [place] [address] Care Team Providers Care Senior Risk Manager Name Role Phone Unavailable Primary Care [...]
--- OUTSIDE RECORDS SUMMARY | 2025-01-19 16:08 | XMS_ITS | Encounter Summary ---
Author Organization [employer] [facility] Address [address] [place] [address] 7 [place] [address] Care Team Providers Care Energy Conservation Engineer Name Role Phone Unavailable Primary Care Provider Unavailabl e Encounter Details Date Type Department Care Team (Latest Contact Info) Description 09/12/2021 Abstract [facility] CONVERSIONS Dental, Provider, DDS Social History Tobacco [...]
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
--- NOTE | 2025-01-19 16:31 | PC.NURSE ---
Pt alert to self only with staff medical record specialist. Denies pain or discomfort. Assisted to bedside commode, minimal assist needed. Refused Lactic draw, Cecy REILLY aware. Plan to move pt to overflow
--- NOTE | 2025-01-19 16:59 | MHC.EDTECH ---
This pct assumed care of Pt at 1500 ,vitals taken ,Pt belonging list done ,Patient was assisted unto bedside commode ,void and back to bed .Patient moving to ed overflow unit .
--- NOTE | 2025-01-19 17:28 | PHA.MEDREC ---
Addendum entered by Samaria Conway [facility] 01/19/25 17:51: reviewed by [facility]. Not sure if patient is actually supposed to be/has been taking clobazam - let provider Cecy know about fill hx. Original Note: Pharmacy Consult ? Medication Reconciliation Pharmacy has completed the medication reconciliation. Attempted to speak with patient with facer operator and patient was a poor historian. Spoke with patients daughter over the phone and she was able to confirm her moms medications. Patients daughter confirmed her mom takes Haloperidol 5mg tabs taking 1 tab in the morning and 2 at bedtime. She claims her mom still takes the Clobazam 5mg tab once in the morning and a Clobazam 25mg tab at bedtime and stated that was being filled at [facility]; I called and spoke with [facility] and they confirmed they have no claims or history of that medication being filled at that facility. I also called [facility] in [place] and they confirmed they have a script on hold for Clobazam 5mg tabs from September 2024 that was never filled and they saw they have fill claims from 2022 for that medication but nothing since. Patient stated she has not taken any medications since last night but the daughter confirmed her mom should of taken her morning medications this morning but is not sure.
[2025-01-19] MEDS: Heparin Sodium,Porcine 5,000 UNIT/ML VIAL 5000 UNIT SUBCUT (18:25)
[2025-01-19] MEDS: levETIRAcetam in NaCl (iso-os) 500 MG/100 ML PIGGYBACK 400 MG IV (18:26)
[2025-01-19] MEDS: 0.9 % Sodium Chloride Flush 3 ML SYRINGE IVFLUSH (18:26)
--- NOTE | 2025-01-19 20:43 | PC.NURSE ---
assumed care of pt at 1900. pt awake and alert in hospital bed resting quietly. Pt alert to self and when asked about pain responded no. VSS. Pts IV dressing noted to be wet and bloody, changed pts IV dressing, IV intact and patent. Pts daughter in room, brought in home meds per pharmacy, pharmacy aware and meds sent to pharmacy. Pts needs met at this time. Updated pt and daughter on plan at this time. Pt waiting transport to the floor. Plan of care ongoing
[2025-01-20 03:49] VITALS: BP 143/80; PULSE 89; RESP 16; TEMP 36.6; O2SAT 97
[2025-01-20] MEDS: Heparin Sodium,Porcine 5,000 UNIT/ML VIAL 5000 UNIT SUBCUT (04:42)
[2025-01-20] MEDS: levETIRAcetam in NaCl (iso-os) 500 MG/100 ML PIGGYBACK 400 MG IV (04:42)
[2025-01-20 06:17] LABS: Hemoglobin 11.8 g/dl (12.0-16.0); Mean Corpuscular HGB Conc 34.7 g/dl (31.0-35.0); Mean Corpuscular Hemoglobin 31.9 pg (27.0-33.0); Mean Corpuscular Volume 91.9 fL (80.0-98.0); Mean Platelet Volume 9.4 fL (9.4-12.3); Platelet Count 235 X10*3/uL (160-400); Red Cell Distribution Width 13.6 % (11.0-16.0); White Blood Count 4.1 X10*3/uL (4.8-10.8)
[2025-01-20 06:31] LABS: Magnesium 1.9 mg/dL (1.6-2.6)
[2025-01-20 06:32] LABS: ~Lactic Acid-LAB USE ONLY 0.6 mmol/L (0.5-2.0)
[2025-01-20 06:38] LABS: Anion Gap 13 (12-20); Blood Urea Nitrogen 5 mg/dL (9-16); Calcium 8.9 mg/dL (8.4-10.2); Carbon Dioxide 24 mmol/L (22-29); Chloride 101 mmol/L (96-108); Creatinine Clr Calc Pharmacy 118.9; Estimated Glomerular Filt Rate > 60; Glucose Random 90 mg/dL (60-115); Sodium 134 mmol/L (135-145)
[2025-01-20 06:53] LABS: Thyroid Stimulating Hormone 1.01 uIU/mL (0.32-4.0)
[2025-01-20 07:30] VITALS: BP 125/72; PULSE 84; RESP 16; TEMP 36.5; O2SAT 96
[2025-01-20] MEDS: Divalproex Sodium 250 MG TABLET.DR PO (08:33)
[2025-01-20] MEDS: Dicyclomine HCl 10 MG CAPSULE 20 MG PO (08:33)
[2025-01-20] MEDS: HaloperidoL 5 MG TABLET PO (08:33)
[2025-01-20] MEDS: Gabapentin 300 MG CAPSULE PO (08:33)
[2025-01-20] MEDS: 0.9 % Sodium Chloride Flush 3 ML SYRINGE IVFLUSH (08:37)
--- NOTE | 2025-01-20 09:34 | P.DS_ITS ---
DS: Providers Provider Date of Service: 01/20/25 Date of admission: 01/19/25 15:20 Date of discharge: 01/20/25 Primary care physician: Unknown Physician Consults: 01/19/25 15:20 Consult to Neurology Routine Consulting Provider: [facility] Reason for consultation: seizure DS: Diagnosis Discharge Diagnosis (1) Seizure: Status: Acute DS: Summary Hospital Course Hospital Course: 59-year-old woman history of intractable epilepsy, partial aphasia brought in by ambulance after her BOXCAR WEIGHER reported that patient has several seizures. Patient takes gabapentin, esilcarbazepine, and phenobarb for seizure management. Patient reports compliance with her medications. She denied recent illness, fever, nausea, vomiting, diarrhea. CXR negative for consolidation or effusion, head CT negative for acute abnormality. Labs all within acceptable limits, no fever or leukocytosis. Place patient on oberservation for management of breakthrough seizure 59-year-old woman with a history of intractable epileptic seizures presented for breakthrough seizure yesterday. Unfortunately this is chronic for the patient and has multiple breakthrough seizures. She was on multiple seizure medications and was started on Depakote 250 mg here and should continue 250 mg at bedtime. Plan will be to discharge patient home with her same medications and the new medication of Depakote 250 mg at bedtime. She should follow up with her neurologist as soon as possible for medication management. Elevated blood pressure reading. No history of high blood pressure may have been related to seizure no new medications started. Hyponatremia. Mild. Resolved Lactic acidosis. Secondary to seizure. Time Attestation Discharge Coordination Time (in mins): 38 Quality: Safe Use of Opioids Does Pt have an Active Cancer Diagnosis on the Problem List?: No Quality: Stroke Does the patient have a stroke diagnosis?: No Physical Exam Vital Signs: Vital Signs: Last Vital Signs Temp 97.7 F 01/20/25 07:30 Pulse 84 01/20/25 07:30 Resp 16 01/20/25 07:30 BP 125/72 01/20/25 07:30 Pulse Ox 96 01/20/25 07:30 O2 Del Method Room Air 01/20/25 07:30 BMI result Body Mass Index 28.8 Appearing in no acute distress head is normocephalic atraumatic eyes pupils are PERRLA sclera is anicteric mouth throat mucous membranes are intact and moist neck is supple no lymphadenopathy, no JVD noted lung sounds are clear to auscultation heart regular rate rhythm, clear S1, S2 positive bowel sounds, abdomen is soft, nontender neuro patient is alert x3, no focal deficits, partially aphasic DS: Data Data Completed and Pending Completed studies during hospitalization [Text1]: Procedures Insertion of Internal Fixation Device into Right Fibula, Percutaneous Approach (04/17/24) Repair Scalp Skin, External Approach (05/12/23) Reposition Right Tibia with Intramedullary Internal Fixation Device, Percutaneous Approach (04/17/24) Transfusion of Nonautologous Red Blood Cells into Peripheral Vein, Percutaneous Approach (04/17/24) Labs on day of discharge: Laboratory Results - last 24 hr 01/19/25 01/20/25 13:18 05:50 WBC 9.8 4.1 L RBC 4.03 L 3.70 L Hgb 12.6 11.8 L Hct 36.6 L 34.0 L MCV 90.8 91.9 MCH 31.3 31.9 MCHC 34.4 34.7 RDW 13.2 13.6 Plt Count 233 235 MPV 9.2 L 9.4 Immature Gran % (Auto) 0.4 Neut % (Auto) 87.1 H Lymph % (Auto) 5.8 L Burke % (Auto) 6.4 Eos % (Auto) 0.0 Baso % (Auto) 0.3 Lymph # (Auto) 0.6 L Burke # (Auto) 0.6 Eos # (Auto) 0.0 Baso # (Auto) 0.0 Abs Immat Gran (auto) 0.04 H Absolute Neuts (auto) 8.5 H Absolute Nucleated RBC 0.000 0.000 Nucleated RBC % (auto) 0.0 0.0 Sodium 132 L 134 L Potassium 4.4 4.0 Chloride 98 101 Carbon Dioxide 26 24 Anion Gap 12 13 BUN 6 L 5 L Creatinine 0.59 0.56 Estim Creat Clear Calc 113.0 118.9 Estimated GFR > 60 > 60 Random Glucose 104 90 Lactic Acid 2.3 H* Lactic Acid F/U @ 2Hr 0.6 Calcium 9.1 8.9 Magnesium 1.8 1.9 Total Bilirubin 0.3 AST 19 ALT 23 Alkaline Phosphatase 146 H Total Protein 7.4 Albumin 4.2 TSH 1.01 Urine Color Yellow Urine Appearance Clear Urine pH 7.0 Ur Specific [place] <= 1.005 Urine Protein Negative Urine Glucose (UA) Negative Urine Ketones Negative Urine Blood Negative Urine Nitrite Negative Ur Leukocyte Esterase Negative Urine RBC 0-2 Urine WBC 0-5 Ur Squamous Epith Cells 0-2 Urine Bacteria None Seen Hyaline Casts 0-2 Phenobarbital 17.6 Discharge Plan Discharge Anticipated Discharge Date/Time: 01/20/25 09:31 Patient Disposition: Home, Self-Care Discharge Diagnosis: Intractable seizure disorder breakthrough seizure Discharge Medications: New divalproex [Depakote] 250 mg tablet,delayed release (DR/EC) 250 mg PO BEDTIME Qty: 30 0RF Continued dicyclomine 20 mg tablet 20 mg PO BID Qty: 60 1RF Xcopri 200 mg tablet 200 mg PO DAILY phenobarbital 64.8 mg tablet 129.6 mg PO BEDTIME acetaminophen [Tylenol Extra Strength] 500 mg Tablet 500 mg PO Q6H PRN (Reason: Pain) clobazam 10 mg Tablet 5 mg PO DAILY temazepam 15 mg capsule 15 mg PO BEDTIME PRN (Reason: Insomnia) haloperidol 5 mg tablet 10 mg PO BEDTIME sennosides [Senna Laxative] 8.6 mg tablet 17.2 mg PO BEDTIME PRN (Reason: Constipation) magnesium oxide 400 mg (241.3 mg magnesium) tablet 400 mg PO BEDTIME clobazam 10 mg Tablet 25 mg PO BEDTIME gabapentin 300 mg capsule 300 mg PO BID haloperidol 5 mg tablet 5 mg PO DAILY Aptiom 600 mg tablet 600 mg PO BEDTIME pantoprazole [Protonix] 40 mg tablet,delayed release (DR/EC) 40 mg PO DAILY@0630 Discharge Orders: Discharge Order (Routine); Ordered 01/20/25 Ordered By: Cecy Chavez Diet: Advance to usual diet Activity on Discharge: As tolerated Stand Alone Forms: Patient Portal Discharge page Print Language: Occitan Care Plan Goals: You have been started on Depakote 250 mg at bedtime. Please follow up with neurologist for management of seizure medications. Please avoid any activities that could cause injury while having a seizure including driving, swimming alone, activities involving fire. Health Concerns: Intractable seizure Breakthrough seizure Plan of Treatment: Follow up with primary care provider as needed Take all medications as prescribed Assessment: See discharge summary
--- NOTE | 2025-01-20 09:41 | MHC.CM.PN ---
NAZIA DELIVERED VIA CM/CARD SERVICES SPECIALIST. PT LIVES WITH DAUGHTER AND HAS POLISHER HAND HRS THROUGH [employer] (PT DOES NOT KNOW HOW MANY HRS) PT IS FUNCTIONALLY INDEPENDENT. + HCP ON FILE AND [place] [facility] (PT UNSURE OF WHO THE PROVIDER IS) DP: PT HAS BEEN MEDICALLY CLEARED FOR DC HOME, NO SERVICES. PT 'S DAUGHTER WILL TRANSPORT.
--- NOTE | 2025-01-20 11:04 | PC.NURSE ---
Addendum entered by Raquel Donato RN 01/20/25 11:22: Pt's home meds returned to daughter at discharge Original Note: Pts daughter and HCP Hamida Barneso here to take pt home, Discharge instructions reviewed with daughter who is Mohawk speaking . All questions answered and accepting of discharge
== END 2025-01-20 11:59 | disposition home or self-care (01) ==
LOC: HO.ED 14:37 → HO.EDOVER 15:41 → HO.S3 19:09
PROVIDERS: Admitting Provider Nurse Practitioner Acute Care; Emergency Provider Emergency Medicine; PCP Internal Medicine; Visit Provider Nurse Practitioner Acute Care
DX: G40.919 Epilepsy, unspecified, intractable, without status epilepticus (principal); K21.9 Gastro-esophageal reflux disease without esophagitis; Z79.899 Other long term (current) drug therapy
CPT/HCPCS: 36415; 70450; 71045; 80048; 80053; 80184; 81001; 83605; 83735; 84443; 85025; 85027; 93005; 96365; 96366; 96372; 99221; 99285; J1644; J1953

== ENCOUNTER → 2025-01-19 12:41 | Outpatient (BNV) | payer MEDICARE, MEDICAID, SELFPAY | PROVIDERS: Admitting Provider Nurse Practitioner Acute Care; Emergency Provider Emergency Medicine; PCP Internal Medicine; Visit Provider Internal Medicine Cardiovascular Disease | DX: R56.9 Unspecified convulsions (principal) | CPT/HCPCS: 93010 ==

== ENCOUNTER → 2025-01-19 12:51 | Outpatient (BNV) | payer MEDICARE, MEDICAID, SELFPAY | PROVIDERS: Emergency Provider Emergency Medicine; Visit Provider Radiology Diagnostic Radiology | DX: R56.9 Unspecified convulsions (principal); R06.02 Shortness of breath | CPT/HCPCS: 70450; 71045 ==

== ENCOUNTER → 2025-01-19 15:20 | Outpatient (BNV) | payer MEDICARE, MEDICAID, SELFPAY | PROVIDERS: Admitting Provider Nurse Practitioner Acute Care; Emergency Provider Emergency Medicine; Visit Provider Nurse Practitioner Acute Care | DX: R56.9 Unspecified convulsions (principal) | CPT/HCPCS: 99222; 99239 ==

== ENCOUNTER → 2025-01-19 15:20 | Outpatient (BNV) | payer MEDICARE, MEDICAID, SELFPAY | PROVIDERS: Admitting Provider Nurse Practitioner Acute Care; Emergency Provider Emergency Medicine; Visit Provider Psychiatry & Neurology Neurology | DX: G40.919 Epilepsy, unspecified, intractable, without status epilepticus (principal) | CPT/HCPCS: 99222 ==

== ENCOUNTER 2025-02-05 13:23 | Emergency (ER) | payer MEDICARE, MEDICAID, SELFPAY ==
[2025-02-05 13:30] VITALS: BP 128/78; PULSE 77; PULSE 80; RESP 18; TEMP 36.8; O2SAT 98; BMI 32.9
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
[2025-02-05] MEDS: diazePAM 10 MG/2 ML CARTRIDGE 2.5 MG IVPUSH (15:10)
[2025-02-05 15:28] LABS: Lactic Acid 0.9 mmol/L (0.5-2.0)
[2025-02-05 15:36] LABS: Alanine Aminotransferase 18 U/L (0-31); Albumin Level 3.9 g/dL (3.5-5.0); Anion Gap 13 (12-20); Aspartate Amino Transferase 21 U/L (5-31); Bilirubin Direct 0.1 mg/dL (0.0-0.5); Bilirubin Total 0.3 mg/dL (0.0-1.0); Blood Urea Nitrogen 10 mg/dL (9-16); Carbon Dioxide 24 mmol/L (22-29); Chloride 100 mmol/L (96-108); Creatinine Clr Calc Pharmacy 116.2; Estimated Glomerular Filt Rate > 60; Ethanol < 10 mg/dL; Glucose Random 90 mg/dL (60-115); Magnesium 1.9 mg/dL (1.6-2.6); Potassium 4.8 mmol/L (3.3-5.1); Sodium 132 mmol/L (135-145); Total Protein 7.1 g/dL (6.5-8.0)
[2025-02-05 15:53] LABS: Alkaline Phosphatase 121 U/L (39-117)
--- NOTE | 2025-02-05 16:11 | MHC.EDTECH ---
Patient refused the Blood Work,PA (Renay) and RN(Abbie)aware.
[2025-02-05 16:15] LABS: Appearance Urine Clear; Color Urine Yellow; Glucose Urine UA Negative (Negative); Leukocyte Esterase Urine Negative (Negative); Nitrite Urine Negative (Negative); PH 7.5 (5.0-9.0); Specific Gravity - Urine <= 1.005 (1.005-1.025); Urine Blood Negative (Negative); Urine Ketones Negative (Negative); Urine Protein Negative (Neg-Trace)
[2025-02-05 16:17] VITALS: BP 144/87; PULSE 82; RESP 16; O2SAT 99
[2025-02-05 16:29] LABS: Amphetamine Screen Urine Not Detected (Not Detect); Barbiturates, Urine POSITIVE (Not Detect); Benzodiazepines Screen Urine POSITIVE (Not Detect); Buprenorphine Scr Not Detected (Not Detect); Cannabinoid Screen Urine Not Detected (Not Detect); Cocaine Screen Urine Not Detected (Not Detect); Fentanyl, urine Not Detected (Not Detect); Methadone Screen, Urine Not Detected (Not Detect); Opiate Screen Urine Not Detected (Not Detect); Oxycodone Screen Urine Not Detected (Not Detect); Phencyclidine Screen Urine Not Detected (Not Detect)
[2025-02-05 16:33] VITALS: BP 154/85; PULSE 90; RESP 16; O2SAT 100
--- NOTE | 2025-02-05 16:33 | PC.NURSE ---
Pt walked SB assist to BR, while patient washing hands, suddenly fell backwards and hit head on door, witnessed by this RN. Patient able to get up and walk two steps to stretcher after fall. Patient able to answer questions and follow commands appropriately in Czech. Pt states she remembers falling and felt like she was going to have a seizure, no seizure like activity noted during incident by this RN. Provider Renay made aware, plan for CT head already in place. toaster operator Estrada also aware. Patient currently resting quietly on stretcher, VSS.
[2025-02-05] MEDS: Valproic Acid (as Sodium Salt) 1,000 MG in Dextrose 5 % 50 ML 55 MG IV (17:27)
[2025-02-05 18:00] VITALS: BP 154/85; PULSE 82; RESP 16; TEMP 36.6; O2SAT 100
--- OUTSIDE RECORDS SUMMARY | 2025-02-05 20:39 | XMS_ITS | Data Portability ---
Author Organization [facility] [employer] [facility], Main Office Address [address], [address] [place] [address] Care Team Providers Care Nursing Admin Name Role Phone DULCE MARIA BRITO - 2ND FLOOR OTHER BRITTANY CARDENAS Primary Care Provider [phone] Assessment Encounter Date Assessment Date Assessment LastModified by Organization Details LastModified Time 05/06/2024 05/06/2024 I have seen and examined the patient independently and confirmed the findings above with the [employer] student note. Management plan discussed with the [employer] student personally. Not available 05/06/2024 14:53:50 Plan of Treatment [...] and Address Organization Details Recorded Time Seizure [id number] Active 2023 RADHA PAREKH NP [address] [facility], [facility] [address], [place], [address], [facility] [employer] [facility] 4 13:12:57 Compressi on fracture of thoracic vertebra 657459455896 4 Active 2023 T 12 RADHA PAREKH NP [address] [facility], [address], [place], [address], [facility] [employer] [facility] 4 14:24:14 Psychotic disorder 20942949 Active 2023 RADHA PAREKH NP [address] [facility], [address], [place], [address], [facility] [employer] 4 14:24:23 Hypomagne semia 089684837 Active 2023 RADHA PAREKH NP [address], [address], [place], [address], [facility] [employer] [facility] 4 14:24:34 Delusiona l disorder 62242840 Active 2023 RADHA PAREKH NP [address], [address], [place], [address], [facility] [employer] [facility] 4 14:24:45 Urinary incontine txe 663170805 Active 2023 RADHA PAREKH NP [address], [address], [place], [address], [facility] [employer] [facility] 4 14:25:02 Overactiv e urinary bladder 427253203 Active 2023 RADHA PAREKH NP [address], [address], [place], [address], [facility] [employer] [facility] 4 14:25:10 Irritable bowel syndrome 29827329 Active 2023 RADHA PAREKH NP [address], [address], [place], [address], [facility] [employer] [facility] 4 14:25:16 Obese 741299357 Active 2023 RADHA PAREKH NP [address], [address], [place], [address], [facility] [employer] [facility] 4 14:25:54 Low blood pressure 19589961 Active 2023 RADHA PAREKH NP [address], [address], [place], [address], [facility] [employer] [facility] 4 14:26:04 Anemia 169263207 Active 2023 RADHA PAREKH NP [address], [address], [place], [address], [facility] [employer] [facility] 4 14:26:12 Major depressiv e disorder 683344404 Active 2023 RADHA PAREKH NP [address], [place], [address], [employer] [facility] 4 14:26:30 Pain of multiple joints 11203008 Active 2023 RADHA PAREKH NP [address] [facility], [address], [place], [address], [facility] [employer] [facility] 4 14:26:40 Ataxia 09780755 Active 2023 RADHA PAREKH NP [address] [facility], [address], [place], [address], [employer] [facility] 4 14:26:48 Expressiv e language disorder 608061290 Active 2023 RADHA PAREKH NP [address] [facility], [address], [place], [address], [employer] [facility] 4 14:27:23 Hyponatre mik 67070783 Active 2023 RADHA PAREKH NP [address] [facility], [address], [place], [address], [employer] [facility] 4 14:27:34 Gastroeso phageal reflux disease without esophagit is 932566042 Active 2023 RADHA PAREKH NP [address] [facility], [address], [place], [address], [employer] 4 14:27:49 Neoplasm of brain 625057567 Active 2023 History of, s/p craniotom y RADHA PAREKH NP [address] [facility], [address], [place], [address], [employer] 4 14:53:53 Fracture of tibia AND fibula 818254205 Active 2023 s/p IMN 04/18/24 Dr. Néstor PAREKH NP [address] [facility], [address], [place], [address], [employer] 4 14:54:33 Impaired cognition 495956925 Active 2023 Lavinia Munoz MD [address] [facility], [address], [place], [address], [employer] 4 17:07:04 Problem Notes None recorded. Medical Equipment None Reported. Allergies Allergen ID Allergen Name Allergen Category Reaction Reaction Severity Criticality Documentation Date Start Date Code Code System Note Provider Name and Address Organization Details Recorded Time 90760 Iodinated contrast media (substanc e) medicatio n Not available Not available Not available 04/22/2024 00643 2004 SNOMED RADHA PAREKH NP [address] [facility], [address], [place], [address], [facility] [employer] [facility] 4 14:17:43 24875 Product containin g penicilli n (product) medicatio n Not available Not available Not available 04/22/2024 77026 8001 SNOMED RADHA PAREKH NP [address] [facility], [address], [place], [address], [facility] [employer] [facility] 4 14:17:53 97486 Dilantin medicatio n Not available Not available Not available 04/22/2024 0 RxNorm RADHA PAREKH NP [address] [facility], [address], [place], [address], [facility] [employer] 4 14:18:00 Medications Name Sig Start Date Stop Date [...] Updated DateTime 4 165.1 cm 30 kg/m2 90856.6 3 g 72 /min 17 /min 98 [degF] 98 % 98 % 141 mm[Hg] 96 mm[Hg] Lavinia Munoz MD [address] [facility], [address], [place], [address], [facility] [employer] 4 15:55:10 Date Recorded Body height Heart rate Respiratory rate Body temperature Oxygen saturation Oxygen saturation in Arterial blood by Pulse oximetry Systolic blood pressure Diastolic blood pressure Provider Name and Address Organization Details Last Updated DateTime 4 165.1 cm 72 /min 17 /min 98 [degF] 98 % 98 % 141 mm[Hg] 96 mm[Hg] RADHA PAREKH NP [address] [facility], [address], [place], [address], [employer] 4 13:55:54 Date Recorded Body height Heart rate Respiratory rate Body temperature Oxygen saturation Oxygen saturation in Arterial blood by Pulse oximetry Systolic blood pressure Diastolic blood pressure Provider Name and Address Organization Details Last Updated DateTime 4 165.1 cm 72 /min 17 /min 98 [degF] 98 % 98 % 141 mm[Hg] 96 mm[Hg] RADHA PAREKH NP [address] [facility], [facility] [address], [place], [address], [employer] [facility] 4 12:49:49 Date Recorded Body height Body mass index (BMI) Body weight Heart rate Respiratory rate Body temperature Oxygen saturation Oxygen saturation in Arterial blood by Pulse oximetry Systolic blood pressure Diastolic blood pressure Provider Name and Address Organization Details Last Updated DateTime 4 165.1 cm 30 kg/m2 01369.4 2 g 72 /min 17 /min 98 [degF] 98 % 98 % 141 mm[Hg] 96 mm[Hg] Irene mondragon [employer] 4 14:28:15 Date Recorded Body height Body mass index (BMI) Body weight Heart rate Respiratory rate Body temperature Oxygen saturation Oxygen saturation in Arterial blood by Pulse oximetry Systolic blood pressure Diastolic blood pressure Provider Name and Address Organization Details Last Updated DateTime 4 165.1 cm 30 kg/m2 01678.6 3 g 78 /min 18 /min 96.6 [degF] 98 % 98 % 98 mm[Hg] 60 mm[Hg] Aminta Jonhson NP [address] [facility], [address], [place], [address], [employer] 4 13:12:27 Social History Question Answer Notes LastModified by Organizat ion Details LastModified Time Tobacco Smoking Status Never Smoker RADHA PAREKH NP [address] [facility], [address], [place], [address], [facility] [employer] 04/22/2024 14:28:36 Do You Have An Advance Directive? Yes Information not available 04/28/2024 What Is Your Code Status? Full Code Information not available 04/22/2024 Where Do You Live? Apartment With Daughter, Full Flight Of Stairs To Enter. Ambulates Ad Flori. Has triage nurse During The Day While Family Works. [email or web address] Information not available 04/22/2024 Legal Guardian? No Information not available 04/28/2024 Do You Have A Medical Power Of Specimen Preparation Assistant? Yes Has HCP, Invoked 04/22/24 Information not available 04/28/2024 What Was The Date Of Your Most Recent Tobacco Screening? 04/22/2024 [email or web address] Information not available 04/22/2024 Do You Have An Out Of Hospital DNR? No Information not available 04/28/2024 Has Tobacco Cessation Counseling Been Provided? No N/a As Pt Is Non-smoker Information not available 04/28/2024 Sex: Unknown Functional Status Question Answer Note LastModified by Organizat ion Details LastModified Time Do you use any illicit or recreational drugs? No Information not available 04/22/2024 Do you or have you ever used any other forms of tobacco or nicotine? No Information not available 04/22/2024 What is your level of alcohol consumption? None [email or web address] Information not available 04/22/2024 Mental Status None recorded. Family History Relationship Description Onset Age of this Age Resolved Age Notes LastModified by Organization Details LastModified Time Father Heart disease [email or web address] Not available 2023 14:28:07 Mother Diabetes mellitus [email or web address] Not available 2023 14:28:16 Medical History No medical history recorded. Gynecological HistoryNo gynecological history recorded. Obstetrics History GPAL:G 0 P 0 0 0 0 Immunizations Vaccine Type Date Status Note Provider Nam e and Address Organization Details Recorded Time DTaP, unspecified formulation 10/30/2018 completed Jessica ashby [facility] [employer] 04/22/2024 13:04:17 Tdap 03/08/2020 completed Jessica Ha [facility] 04/22/2024 13:04:33 Tdap 09/28/2020 completed Jessica [facility] 04/22/2024 13:04:41 Tdap 11/01/2021 completed Jessica [facility] 04/22/2024 13:04:48 Td(adult) unspecified formulation 03/03/2018 completed Jessica [facility] 04/22/2024 13:05:02 influenza, unspecified formulation 06/28/2023 completed [facility] 04/22/2024 13:05:17 SARS-COV-2 (COVID-19) vaccine, UNSPECIFIED 12/07/2020 completed Jessica [facility] 04/22/2024 13:05:34 SARS-COV-2 (COVID-19) vaccine, UNSPECIFIED 12/28/2020 completed [facility] 04/22/2024 13:05:41 Past Encounters Encounter ID Performer Location Encounter Start Date Encounter Closed Date Diagnosis/Indication Diagnosis SNOMED-CT Code Diagnosis ICD10 Code Diagnosis Note [id number] RADHA PAREKH NP [address] [address] 04/22/2024 12:23:51 04/23/2024 13:07:55 Seizure 61766535 R56.9 Suspected sz. activity resulting in fall with injury.See n [place]. [place] [facility] no med changes made.Usual Neurologis t is Dr. Cordero in [place] ([facility]), missed last appt., encouraged daughter to reschedule in light of recent sz. activity.C urrent meds:Xcopr i 200 mg qdPhenobar bital 129.6 mg q HSClobazam 5 mg q am, 25 mg q pmAptiom 600 mg q HSGabapent in 300 mg bidMonitor neuro status closely Fracture o f tibia AND fibula 409721705 S82.201A Right tib-fib fx. resulting from fall at home.Under went IMN 04/18 by britt Cat. Rebecca m boot at all timesDCD to remain in place.love nox 40 mg qd x 42 days for ACAPAP 975 mg tid scheduled and oxycodone 5 mg q 6 hrs prn for pain mgmt. - monitor use and effect, adjust as needed.PT OT eval and tx.Goal is to return home.Updat e Ortho with concerns, follow up in 2 wks. Anemia 805999394 D64.9 Post op, down to 7.4, transfused with 2 units PRBCs with improvemen t to 10.4Now on ACMonitor s/s active bleedingMo nitor CBCs Psychotic disorder 33516 001 F29 Continue home meds:gabap entin 300 mg bidhaldol 5 mg q am, 10 mg q pmInvoke HCP 04/22/24Mon itor mood and behaviorsP sych eval prn Major depr essive disorder 862357397 F32.9 Not on antidepres santsMonit or mood and behaviors Hypomagnesemia 864372184 E83.42 Continue Mag Ox 400 mg qdLast Mg. level 1.7, monitor. Gastroesop hageal reflux disease without esophagitis 659078967 K21.9 Continue pantoprazo le 40 mg qdMonitor GIsx. Irritable bowel syndrome 65078033 K58.9 Continue bentyl 10 mg qidMonitor GI sx. [id number] RADHA PAREKH NP [address] [address] 04/24/2024 11:21:09 04/25/2024 15:37:36 Seizure 10200434 R56.9 Suspected sz. activity resulting in fall with injury.See n [place] Dr. Barnes [place] [facility], no med changes made.Usual Neurologis t is Dr. Cordero in [place] ([facility]), missed last appt., encouraged daughter to reschedule in light of recent sz. activity.C urrent meds:Xcopr i 200 mg qdPhenobar bital 129.6 mg q HSClobazam 5 mg q am, 25 mg q pmAptiom 600 mg q HSGabapent in 300 mg bidMonitor neuro status closely, no sz. activity so far while here. Fracture o f tibia AND fibula 297941978 S82.201A Right tib-fib fx. resulting from fall at home.Under went IMN 04/18 by britt Cat. Rebecca barroso boaravind at all timesDCD to remain in place.love nox 40 mg qd x 42 days for ACAPAP 975 mg tid scheduled and oxycodone 5 mg q 6 hrs prn for pain mgmt. - monitor use and effect, adjust as needed.PT OT eval and tx.Goal is to return home.Updat e Ortho with concerns, follow up in 2 wks. Anemia 933161246 D64.9 Post op, down to 7.4, transfused with 2 units PRBCs with improvemen t to 10.4Curren t hgb 9.9.Now on ACMonitor s/s active bleedingMo nitor CBCs Psychotic disorder 86993 001 F29 Continue home meds:gabap entin 300 mg bidhaldol 5 mg q am, 10 mg q pmInvoke HCP 04/22/24Mon itor mood and behaviorsP sych eval prn Major depr essive disorder 825429501 F32.9 Not on antidepres santsMonit or mood and behaviors Hypomagnesemia 945318046 E83.42 Continue Mag Ox 400 mg qdLast Mg. level 1.7, monitor. Gastroesop hageal reflux disease without esophagitis 717459243 K21.9 Continue pantoprazo le 40 mg qdMonitor GIsx. Irritable bowel syndrome 41531558 K58.9 Continue bentyl 10 mg qidMonitor GI sx. [id number] Lavinia Munoz MD [address] [address] 04/28/2024 15:38:43 05/12/2024 14:58:50 Seizure 58573000 G40.89 With long hx of seizures, difficult to control, she has also had poor tolerance to meds.At last neuro appt at [facility] with Dr. Cordero she reported 3 [...] planned. Fracture o f tibia AND fibula 483261746 S82.51XD S82.61XD Recovering well from ORIF of right tib-fib fx.May WBATTo wear Cam boot at all timesConti nue APAP 975 mg TID scheduled and oxycodone 5 mg q 6 hrs prn.Contin ue Lovenox 40 mg qd for DVT prophylaxi s for 6 wks post-op..F /U with ortho as planned.. Anemia 901105022 D62 D64.89 Acute on chronic.Wa s stable as of 04/24, no labs done today.Clari tor labs.Consi annabella adding iron. Psychotic disorder 82419 001 F28 No evidence of delusions since here.Lizbeth nue gabapentin 300 mg BID and haldol 5 mg q am and 10 mg q pmMonitor mood and behaviorsP sych eval prn Major depr essive disorder 643218008 F32.89 As above. Hypomagnesemia 786162290 E83.42 Continue Mag Ox 400 mg qdMonitor levels Gastroesop hageal reflux disease without esophagitis 110143468 K21.9 No current sxs.Contin ue pantoprazo le 40 mg qdMonitor GI sxs. Irritable bowel syndrome 73256171 K58.9 Continue bentyl 10 mg qidMonitor GI sxs. Impaired cognition 10399 6002 R41.89 With poor short term recall regarding medical issues especially .Likely due to craniotomi es and frequent seizures.B IM was 05/08.HCP invoked 04/22/24Con tinue supportive care, expect decline.Mo nitor mood and behaviors. Psych consult prn. [id number] RADHA PAREKH NP [address] [address] 04/29/2024 10:41:26 04/30/2024 19:12:03 Seizure 51192776 G40.89 With long hx of seizures, difficult to control, she has also had poor tolerance to meds.At last neuro appt at [facility] with Dr. Cordero she reported 3 [...] planned. Fracture o f tibia AND fibula 916211007 S82.51XD S82.61XD Recovering well from ORIF of right tib-fib fx.May WBATTo wear Cam boot at all times - encourage compliance .Continue APAP 975 mg TID scheduled and oxycodone 5 mg q 6 hrs prn.Contin ue Lovenox 40 mg qd for DVT prophylaxi s for 6 wks post-op..F /U with ortho as planned.. Anemia 076588703 D62 D64.89 Acute on chronic.Wa s stable as of 04/24, repeat labs 05/05Monito r labs.Consi annabella adding iron. Psychotic disorder 62230 001 F28 No evidence of delusions since here.Lizbeth nue gabapentin 300 mg BID and haldol 5 mg q am and 10 mg q pmMonitor mood and behaviorsP sych eval prn Major depr essive disorder 683003262 F32.89 As above. Hypomagnesemia 185486368 E83.42 Continue Mag Ox 400 mg qdMonitor levels Gastroesop hageal reflux disease without esophagitis 364072812 K21.9 No current sxs.Contin ue pantoprazo le 40 mg qdMonitor GI sxs. Irritable bowel syndrome 49393219 K58.9 Continue bentyl 10 mg qidMonitor GI sxs. Impaired cognition 26230 6002 R41.89 With poor short term recall regarding medical issues especially .Likely due to craniotomi es and frequent seizures.B IM was 05/08.HCP invoked 04/22/24Con tinue supportive care, expect decline.Mo nitor mood and behaviors. Psych consult prn. [id number] RADHA PAREKH NP [address] [place] [address] 05/01/2024 12:48:05 05/06/2024 15:42:55 Seizure 77650948 G40.89 With long hx of seizures, difficult to control, she has also had poor tolerance to meds.At last neuro appt at [facility] with Dr. Cordero she reported 3 [...] planned. Fracture o f tibia AND fibula 793666946 S82.51XD S82.61XD Recovering well from ORIF of right tib-fib fx.May WBATTo wear Cam boot at all times - encourage compliance .Continue APAP 975 mg TID scheduled and oxycodone 5 mg q 6 hrs prn.Contin ue Lovenox 40 mg qd for DVT prophylaxi s for 6 wks post-op..F /U with ortho as planned..P MR emilianoi ng Ibuprofen 800 mg bid x 2 wks, will add and monitor closely Anemia 091538579 D62 D64.89 Acute on chronic, improvingM onitor labs. Psychotic disorder 18572 001 F28 No evidence of delusions since here.Lizbeth nue gabapentin 300 mg BID and haldol 5 mg q am and 10 mg q pmMonitor mood and behaviorsP sych eval prn Major depr essive disorder 847080067 F32.89 As above. Hypomagnesemia 924308240 E83.42 Mg 1.6Continu e Mag Ox 400 mg qdMonitor levels Gastroesop hageal reflux disease without esophagitis 383683882 K21.9 No current sxs.Contin ue pantoprazo le 40 mg qdMonitor GI sxs. Irritable bowel syndrome 90158109 K58.9 Continue bentyl 10 mg qidMonitor GI sxs. Impaired cognition 64377 6002 R41.89 With poor short term recall regarding medical issues especially .Likely due to craniotomi es and frequent seizures.B IM was 05/08.HCP invoked 04/22/24Con tinue supportive care, expect decline.Mo nitor mood and behaviors. Psych consult prn. [id number] RADHA PAREKH NP [address] [place] [address] 05/06/2024 12:39:48 05/07/2024 13:34:53 Seizure 22466978 G40.89 Long hx of seizures, difficult to control, with poor tolerance to meds.At last neuro appt at [facility] with Dr. Cordero she reported 3 [...] planned. Fracture o f tibia AND fibula 270595442 S82.51XD S82.61XD s/p ORIF of right tib-fib [...] then reeval.F/U with ortho as planned. Anemia 500596598 D62 D64.89 Acute on chronicMon itor labs. Psychotic disorder 23942 001 F28 No report of delusions since here.No change in mood or behaviors. Continues to be suspicious Continue:g abapentin 300 mg BIDhaldol 5 mg q am and 10 mg q pmMonitor mood and behaviorsP sych eval prn Major depr essive disorder 913874876 F32.89 No change in mood and behaviorsC ontinue:ga bapentin 300 mg BIDhaldol 5 mg q am and 10 mg q pmMonitor mood and behaviorsP sych eval prn Hypomagnesemia 509213131 E83.42 Mg 1.6Continu e Mag Ox 400 mg qdMonitor labs Gastroesop hageal reflux disease without esophagitis 901255441 K21.9 Asymptomat icContinue pantoprazo le 40 mg qdMonitor sxs. Irritable bowel syndrome 53364048 K58.9 Continue bentyl 10 mg qidNo reported GI sxs.Monito r GI sxs. Impaired cognition 59515 6002 R41.89 Continues with poor short term recall especially medical issuesLike ly due to frequent sz and hx of craniotomi esBIM was 05/08 on 04/22/24.HC P invoked 04/22/24Con tinue supportive care, expect decline.Mo nitor mood and behaviors. Psych consult prn. [id number] [facility] [address] 05/09/2024 13:11:48 05/16/2024 15:24:40 Fracture of tibia AND fibula 476649187 S82.51XD S82.61XD s/p ORIF of right tib-fib fx.on 05/06 ortho removed jakub, steri strips were applied, ok to remove [...] as planned outpt and with pcp Seizure 09539295 G40.89 Long hx of seizures, difficult to control, with poor tolerance to meds.At last neuro appt at [facility] with Dr. Cordero she reported 3 [...] planned outpt and with pcp outpt Anemia 882163155 D62 D64.89 Acute on chronicMon itor labs outpt per pcp Psychotic disorder 34479 001 F28 No report of delusions since here.No change in mood or behaviors. Continues to be suspicious at timesCont: gabapentin 300 mg BIDhaldol 5 mg q am and 10 mg q pmMonitor mood and behaviorsP sych eval prn outpt Major depr essive disorder 719947832 F32.89 No change in mood and behaviorsC ont:gabape ntin 300 mg BIDhaldol 5 mg q am and 10 mg q pmMonitor mood and behaviorsP sych eval prn outpt Hypomagnesemia 971170888 E83.42 Mg 1.6Continu e Mag Ox 400 mg qdMonitor labs outpt with pcp Gastroesop hageal reflux disease without esophagitis 006119756 K21.9 Asymptomat icContinue pantoprazo le 40 mg qdMonitor sxs. outpt iw pcp Irritable bowel syndrome 97198603 K58.9 Continue bentyl 10 mg qidNo reported GI sxs.Monito r GI sxs outpt with pcp Impaired cognition 90675 0202 R41.89 Continues with poor short term recall especially medical issuesLike ly due to frequent sz and hx of craniotomi esBIM was /15 on 04/22/24.HC P invoked 04/22/24Con tinue supportive care, expect decline.Mo nitor mood and behaviors. Psych consult prn outptdaugh ter is helpful and has sub assembly team worker to help with needs, vna Health Concerns Section Related Observation LastModified by Organization Detai ls LastModified Time None Recorded Concern Status LastModified by Organization Details LastModified Time None Recorded Advance Directives Directive Y: Payers Encounter Date Sequence Insurance Name Policy Number Policy Mims Covered Member ID Mims Member ID Guarantor Name 04/28/2024 1 [place] [employer] Nanci Luiz [id number] Nanci Luiz 04/28/2024 2 [place] Nanci Luiz [id number] Nanci Luiz 04/29/2024 1 [place] [employer] Nanci Luiz [id number] Nanci Luiz 04/29/2024 2 [place] Nanci Luiz [id number] Nanci Luiz 05/01/2024 1 [place] [employer] Nanci Luiz [id number] Nanci Luiz 05/01/2024 2 [place] Nanci Luiz [id number] Nanci Luiz 05/06/2024 1 [place] [employer] Nanci Luiz [id number] Nanci Luiz 05/06/2024 2 [place] Nanci Luiz [id number] Nanci Luiz 05/09/2024 1 [place] [employer] Nanci Luiz [id number] Nanci Luiz 05/09/2024 2 [place] Nanci Luiz [id number] Nanci Luiz Notes Date Note Type Note Provider Name and Address Organization Details Recorded Time 04/28/2024 text/html This is a 58 yo woman who is here for rehab after an acute hospitalization for a right tib-fib fx after a fall caused by a seizure.She presented to [place] [facility] on [place]16 after having a seizure [...] seizure disorder from last neuro appt in [place]: refractory epilepsy and psychotic syndrome. Her seizures started around the age of 7.5 years, assumed to be due to a left parietal lesion that was initially followed radiographically prior to resection in 1994 at 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. A February 2017 EMU admission captured multiple electrographic and electroclinical seizures despite ASDs polytherapy and VNS. She underwent further parietal corticectomy in March [address] Mcfadden with path c/w leeroy. Since here she has been working with rehab and doing well with [facility] for most activities.Tonight she is in bed dozing, she wakes with a suspicious look on her face. I see her with a puerto rican speaking staff member.She tells me her leg [...] aphasia, hyponatremia, and GERD Lavinia Munoz MD [address] [place] [address], [address], [place], [address], [facility] [employer] 04/28/2024 19:24:46 04/29/2024 text/html Nanci is seen today for an acute visit. She is a 58 yo woman who is here for rehab after an acute hospitalization for a right tib-fib fx after a fall caused by a seizure.She presented to the [facility] on [facility]/16 after having a seizure [...] seizure disorder from last neuro appt in [place]: refractory epilepsy and psychotic syndrome. Her seizures started around the age of 7.5 years, assumed to be due to a left parietal lesion that was initially followed radiographically prior to resection in 1994 at 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. A February 2017 EMU admission captured [...] hyponatremia, and GERD RADHA PAREKH, MELBA [address] [facility], [address], [place], [address], [facility] 04/29/2024 14:03:12 05/01/2024 text/html Nanci is seen today for an acute visit. She is a 58 yo woman who is here for rehab after an acute hospitalization for a right tib-fib fx after a fall caused by a seizure.She presented to the [facility] on 04/16 after having a seizure [...] seizure disorder from last neuro appt in [place]: refractory epilepsy and psychotic syndrome. Her seizures started around the age of 7.5 years, assumed to be due to a left parietal lesion that was initially followed radiographically prior to resection in 1994 at 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. A February 2017 EMU admission captured [...] up near her head, eyeing me suspiciously. 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 Felisha is a 58 yo woman who is here for rehab after hospitalization for a fall caused by a seizure that resulted in a right tib-fib fx. She presented to the [facility] on 04/16 after having a seizure [...] with recovery to 10.2.She was transferred to [facility] on 04/21. Of note, a brief hx of her seizure disorder from last neuro appt in [place]: refractory epilepsy and psychotic syndrome. Her seizures started around the age of 7.5 years, assumed to be due to a left parietal lesion that was initially followed radiographically prior to resection in 1994 at 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. A February 2017 EMU admission captured [...] follow up appt today, they removed her jakub and applied steristrips. Returned with recommendations as [...] hyponatremia, and GERD RADHA PAREKH, MELBA [address] [facility], [address], [place], [address], [facility] [employer] 05/06/2024 20:31:24 05/09/2024 text/html Nanci is seen [...] tib-fib fx. Felisha initially presented to the [facility] on 04/16 after having a seizure [...] possible vagus stimulator. She was transferred to [facility] on 04/21 for continued care and rehab here. Nanci just came back from Ortho follow up appt on 05/06/24. [place] removed and applied steristrips. Returned with recommendations [...] seen sitting up in her room in [facility]. She denies any pain and allows [...] appt planned aswell. Aminta Johnson NP [address] [facility], [address], [place], [address], [facility] - [employer] 05/09/2024 13:51:35 OBGyn Episode No OBEpisode recorded.
--- OUTSIDE RECORDS SUMMARY | 2025-02-05 20:39 | XMS_ITS | Clinical Summary ---
Author Organization [employer] Address [address] [place] [address] [address] [place] [address] Care Team Providers Care Acetylene Cylinder Packing Mixer Name Role Phone Unavailable Primary Care Provider [...] patient's age to complete this topic Insurance [place] ST[place] AD[place]
--- OUTSIDE RECORDS SUMMARY | 2025-02-05 20:39 | XMS_ITS | Clinical Summary ---
Author Organization [facility] Address [address] [place] [address] Care Team Providers Care Enterprise Application Architect Name Role Phone Unavailable Primary Care Provider [...]
--- OUTSIDE RECORDS SUMMARY | 2025-02-05 20:39 | XMS_ITS | Encounter Summary ---
Author Organization [facility] Address [address] [place] [address] 7 [place] [address] Care Team Providers Care Skin Fitter Name Role Phone Unavailable Primary Care Provider Unavailabl e Encounter Details Date Type Department Care Team (Latest Contact Info) Description 09/12/2021 Abstract HHC CONVERSIONS Dental, Provider, DDS Social History Tobacco [...]
[2025-02-05 20:54] VITALS: BP 129/76; PULSE 81; RESP 13; TEMP 36.6; O2SAT 97
[2025-02-05 21:06] VITALS: BP 129/76; PULSE 81; RESP 13; TEMP 36.6; O2SAT 97
== END 2025-02-05 21:29 | disposition home or self-care (01) ==
PROVIDERS: Physician Assistant; Emergency Provider Emergency Medicine Emergency Medical Services
DX: S01.01XA Laceration without foreign body of scalp, initial encounter (principal); W18.30XA Fall on same level, unspecified, initial encounter; Y93.89 Activity, other specified; Y92.008 Other place in unspecified non-institutional (private) residence as the place of occurrence of the external cause; Y99.9 Unspecified external cause status; G40.909 Epilepsy, unspecified, not intractable, without status epilepticus
CPT/HCPCS: 12001; 36415; 70450; 72125; 80048; 80076; 80307; 81003; 82550; 83605; 83735; 96365; 96366; 96375; 99284; J3360

== ENCOUNTER 2025-03-15 01:06 | Emergency (ER) | payer MEDICARE, MEDICAID, SELFPAY ==
--- NOTE | ~2025-03-15 | XR_ITS ---
CLINICAL HISTORY: AMS weakness CHEST X-RAY FRONTAL VIEW COMPARISON: 01/19/2025. FINDINGS: A single frontal view of the chest was performed. Left-sided battery pack and stimulator lead are again noted. The patient is rotated to the left. No focal infiltrate or consolidation. No pleural effusion or pneumothorax. Dextrocurvature of the thoracic spine is noted. Old healed fracture of the right fourth rib is again noted. IMPRESSION: 1. No acute disease. This document has been electronically signed by: Marcin Mohan M.D. on 03/15/2025 02:17:59
--- NOTE | ~2025-03-15 | CT_ITS ---
CLINICAL HISTORY: AMS, fall CT BRAIN WITHOUT CONTRAST COMPARISON: 01/19/2025. FINDINGS: Again noted are left-sided craniotomy changes, with underlying encephalomalacia involving portions of the left parietal and left occipital lobes. No evidence of an acute infarct or intraparenchymal hemorrhage. Mild parenchymal atrophy is present. Chronic small-vessel ischemic changes are noted in the supratentorial brain. No extra-axial bleed. No acute fracture. IMPRESSION: 1. No acute disease in the brain. Postoperative and remote ischemic changes are noted. This document has been electronically signed by: Marcin Mohan M.D. on 03/15/2025 03:21:31
--- NOTE | ~2025-03-15 | CT_ITS ---
CLINICAL HISTORY: AMS, fall CT CERVICAL SPINE WITHOUT CONTRAST COMPARISON: None provided. FINDINGS: No evidence of an acute fracture or dislocation within the cervical spine. There is minimal reversal of the normal cervical lordosis. Multilevel endplate degenerative changes are present. No prevertebral soft tissue swelling. No pneumothorax in the lung apices. Left-sided stimulator device is noted. IMPRESSION: 1. No evidence of an acute fracture or dislocation. This document has been electronically signed by: Marcin Mohan M.D. on 03/15/2025 03:30:44
[2025-03-15 01:13] VITALS: BP 110/82; PULSE 91; O2SAT 96
[2025-03-15 01:25] VITALS: BP 110/68; PULSE 74; RESP 18; TEMP 36.3; O2SAT 100; BMI 28.2
--- NOTE | 2025-03-15 01:29 | ECG_ITS ---
Test Reason : AMS Blood Pressure : */* mmHG Vent. Rate : 71 BPM Atrial Rate : 71 BPM P-R Int : 152 ms QRS Dur : 74 ms QT Int : 364 ms P-R-T Axes : 8 34 47 degrees QTcB Int : 395 ms Normal sinus rhythm Normal ECG When compared with ECG of 19-Jan-2025 12:41, No significant change was found Referred By: Nancy Delatorre Electronically Signed By: Yuri Burnette
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
[2025-03-15 02:30] LABS: MANUAL DIFF FLAG NO
[2025-03-15 02:32] LABS: Basophils Absolute Auto 0.1 X10*3/uL (0.0-0.2); Basophils Percent Auto 0.9 % (0-2); Eosinophils Absolute Auto 0.3 X10*3/uL (0.0-0.4); Eosinophils Percent Auto 5.1 % (0-4); Hemoglobin 11.6 g/dl (12.0-16.0); Imm Gran Abs Auto 0.08 X10*3/uL (0.00-0.03); Imm Gran Pct Auto 1.4 % (0.0-0.4); Lymphocytes Absolute Auto 1.6 X10*3/uL (1.2-4.9); Mean Corpuscular HGB Conc 34.1 g/dl (31.0-35.0); Mean Corpuscular Hemoglobin 31.9 pg (27.0-33.0); Mean Corpuscular Volume 93.4 fL (80.0-98.0); Mean Platelet Volume 8.8 fL (9.4-12.3); Monocytes Absolute Auto 0.8 X10*3/uL (0.1-1.2); Monocytes Percent Auto 14.5 % (2-11); Neutrophils Absolute Auto 2.8 x10*3/uL (2.0-8.3); Neutrophils Percent Auto 50.1 % (45-73); Platelet Count 331 X10*3/uL (160-400); Red Blood Count 3.64 X10*6/uL (4.20-5.50); Red Cell Distribution Width 14.2 % (11.0-16.0); White Blood Count 5.6 X10*3/uL (4.8-10.8)
[2025-03-15 02:45] LABS: Alanine Aminotransferase 53 U/L (0-31); Albumin Level 3.8 g/dL (3.5-5.0); Alkaline Phosphatase 87 U/L (39-117); Anion Gap 14 (12-20); Aspartate Amino Transferase 41 U/L (5-31); Bilirubin Total 0.1 mg/dL (0.0-1.0); Blood Urea Nitrogen 14 mg/dL (9-16); Calcium 9.8 mg/dL (8.4-10.2); Carbon Dioxide 28 mmol/L (22-29); Chloride 104 mmol/L (96-108); Estimated Glomerular Filt Rate > 60; Glucose Random 83 mg/dL (60-115); Magnesium 1.8 mg/dL (1.6-2.6); Potassium 4.5 mmol/L (3.3-5.1); Sodium 141 mmol/L (135-145); Total Protein 7.3 g/dL (6.5-8.0)
[2025-03-15 03:07] LABS: Influenza A PCR NEGATIVE (Negative); Influenza B PCR NEGATIVE (Negative); Resp Syncy Virus RNA Qual PCR NEGATIVE (Negative); SARS COV2 PCR INHOUSE NEGATIVE (Negative)
[2025-03-15 04:13] VITALS: BP 111/63; PULSE 72; RESP 16; TEMP 36.3; O2SAT 100
--- NOTE | 2025-03-15 04:39 | PC.NURSE ---
nurse to nurse report provided to sravan from [facility]. pt pending [facility] lease picker /transport back to the facility
[2025-03-15 05:20] VITALS: BP 111/63; PULSE 72; RESP 16; TEMP 36.3; O2SAT 100
== END 2025-03-15 05:27 | disposition skilled nursing facility (03) ==
PROVIDERS: Physician Assistant Medical; Emergency Provider Internal Medicine; PCP Student in an Organized Health Care Education/Training Program
DX: S09.90XA Unspecified injury of head, initial encounter (principal); R51.9 Headache, unspecified; R41.82 Altered mental status, unspecified; M54.2 Cervicalgia; X58.XXXA Exposure to other specified factors, initial encounter; W10.9XXA Fall (on) (from) unspecified stairs and steps, initial encounter; Y93.9 Activity, unspecified; Y92.9 Unspecified place or not applicable; Y99.8 Other external cause status; Z03.818 Encounter for observation for suspected exposure to other biological agents ruled out; Z79.899 Other long term (current) drug therapy
CPT/HCPCS: 0241U; 70450; 71045; 72125; 80053; 83735; 85025; 93005; 99284

== ENCOUNTER → 2025-03-15 01:29 | Outpatient (BNV) | payer MEDICARE, MEDICAID, SELFPAY | PROVIDERS: Emergency Provider Internal Medicine; PCP Student in an Organized Health Care Education/Training Program; Visit Provider Radiology Diagnostic Radiology | DX: R41.82 Altered mental status, unspecified (principal); R53.1 Weakness | CPT/HCPCS: 70450; 71045; 72125 ==

== ENCOUNTER → 2025-03-15 01:29 | Outpatient (BNV) | payer MEDICARE, MEDICAID, SELFPAY | PROVIDERS: Emergency Provider Internal Medicine; PCP Student in an Organized Health Care Education/Training Program; Visit Provider Internal Medicine Cardiovascular Disease | DX: R41.82 Altered mental status, unspecified (principal) | CPT/HCPCS: 93010 ==

== ENCOUNTER 2025-04-24 13:40 | Outpatient (AMB) | payer MEDICARE, MEDICAID, SELFPAY ==
--- OUTSIDE RECORDS SUMMARY | 2025-04-24 13:43 | XMS_ITS | Encounter Summary ---
Author Organization [facility] Address [address] [place] [address] [address] [place] [phone] Phone Care Team Providers Care Manager Code Name Role Phone Paul Grady MD Primary Care Provider Jacky Zelaya MD Unavailable [phone] Unknown, Unknown Primary Care Provider Lara Su MD Primary Care Provid er Encounter Details Date Type Department Care Team (Late st Contact Info) Description 04/26/2018 Procedure Pass [facility] MR Imaging, [facility] [address] [place] [address] Social History Tobacco Use Types Packs/Day Years Used Date Smoking Tobacco: Never Smokeless Tobacco: Never Alcohol Use Standard Drinks/Week Comments No 0 (1 standard drink = 0.6 oz pur e alcohol) Comments No Sex and Gender Information Value Date Recorded Sex Assigned at Female 03/20/2018 2:09 PM EDT Legal Sex Female 11:22 AM EST Gender Identity Female 03/20/2018 2:09 PM EDT Sexual Orientation Straight 03/20/2018 2: 09 PM EDT documented as of this encounter Functional Status * Patient is deaf or has serious difficulty with hearing Answer Date of Assessment Author No 03/16/2017 10:51 AM EDT Tashia Ny PA * Patient is blind or has serious difficulty with seeing, even when wearing glasses Answer Date of Assessment Author No 03/16/2017 10:51 AM EDT Tashia Ny PA * Patient has serious difficulty walking or climbing stairs (5yr old or older) Answer Date of Assessment Author No 03/16/2017 10:51 AM EDT Tashia Ny PA * Patient has serious difficulty dressing or bathing (5yr old or older) Answer Date of Assessment Author No 03/16/2017 10:51 AM EDT Tashia Ny PA * Patient has serious difficulty doing errands alone such as visiting a doctor???s office or shopping, due to physical, mental, or emotional condition (15 years old or older) Answer Date of Assessment Author No 03/16/2017 10:51 AM EDT Tashia Ny PA documented as of this encounter Mental Status * Patient has serious difficulty concentrating, remembering, or making decisions due to physical, mental, or emotional condition Answer Entry Date Author No 03/16/2017 10:51 AM Tashia Maurer PA documented in this encounter Plan of Treatment Upcoming Encounters Date Type Department Care Team (Late st Contact Info) Description 05/08/2025 9:30 AM EDT Telemedicine [facility] Department of Neurosurgery [address] [place] [address] Brody Sibley MD, PhD [address] [facility] [address] [place] [address] [email or web address] documented as of this encounter Visit Diagnoses Not on filedocumented in this encounter Care Teams Manager Code Relationship Specialty Start Date End Date Paul Grady MD [address] [place] [address] Dr CLARKE [address] [place] [id number] PCP - General Internal Medicine 03/07/17 04/23/21 Unknown, Unknown, MD PCP - General 04/24/21 07/14/21 Lara Mercado MD [address] [place] [id number] PCP - General Internal Medicine 07/15/21 Jacky Zelaya MD [address] [place] [address] [place] [address] [email or web address] Medical Student Neurology 11/07/19 09/06/20 documented as of this encounter Additional Source Comments The information contained in this document represents components of the legal health record. It is not the complete legal health record.[facility]
--- OUTSIDE RECORDS SUMMARY | 2025-04-24 13:44 | XMS_ITS | Clinical Summary ---
Author Organization [facility] Address [address] [place] [address] Care Team Providers Care Middle School Spanish Teacher Name Role Phone Lara Mercado MD Primary Care Provider [phone] Social History Tobacco Use Types Packs/Day Years [...] of 1 - PCV) 018 Influenza Vaccine (#1) 2025 Insurance Medicare Medicaid [place] Medicare [place] Care Teams Middle School Spanish Teacher Relationship Specialty Start Date End Date Lara Mercado MD [address] [place] [address] PCP - General Internal Medicine 11/11/20
--- OUTSIDE RECORDS SUMMARY | 2025-04-24 13:44 | XMS_ITS | Clinical Summary ---
Author Organization [facility] Address [address] [place] [address] Care Team Providers Care Handbag Operator Name Role Phone Unavailable Primary Care Provider [...] 2) 12/29/2017 Colorectal Cancer Screening: Colonoscopy 08/27/2022 HIV Screening 08/27/2022 Hepatitis C Screening 08/27/2022 Social Influencers of Health Screening 08/27/2022 COVID-19 Vaccine ( - 2023-2 5 season) 2024 Depression Screening 09/24/2024 Influenza Vaccine (#1) 2025 HIB Vaccines Aged Out No longer [...]
--- OUTSIDE RECORDS SUMMARY | 2025-04-24 13:44 | XMS_ITS | Encounter Summary ---
Author Organization [employer] [facility] Address [address] [place] [address] 7 [place] [address] Care Team Providers Care Blower Insulator Name Role Phone Unavailable Primary Care Provider [...]
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
[2025-04-24 14:00] VITALS: BP 120/70; TEMP 36.1; BMI 28.5
--- OUTSIDE RECORDS SUMMARY | 2025-06-18 20:00 | XMS_ITS | Clinical Summary ---
Author Organization Unknown Care Team Providers Care Garage Door Installer Name Role Phone SUNITA CUENCA MD, BRITTANY Unavailable Unavailable MARAL PAYAN, LETI Unavailable Unavailable Payers Payer Name Policy Type Policy Number Effective Date Expira tion Date MEDICARE - NGS [place] - PDGM [id number] Problems Condition Name Condition Details Condition Category Status Onset Date Resolution Date Last Treatment Date Treating Clinician Comments EPILEPSY, UNSP, NOT INTRACTABLE, WITHOUT STATUS EPILEPTICUS Active 04-16 00:00: 00 UNSP FRACTURE OF SHAFT OF RIGHT TIBIA, INIT FOR CLOS FX Active 04-16 00:00: 00 UNSPECIFIED FALL, INITIAL ENCOUNTER Active 04-16 00:00: 00 Allergies, Adverse Reactions, Alerts Allergy Name Allergy Type Status Severity Reaction(s) Onset Date Inactive Date Treating Clinician Comments CONTRAST DYE Propensity to adverse reactions Active 04-22 06:25: 51 DILANTIN Propensity to adverse reactions Active 04-22 06:26: 05 PENICILLIN Propensity to adverse reactions Active 04-22 06:26: 15 Medications Ordered Medication Name Filled Medication Name Start Date Stop Date Current Medication? Ordering Clinician Indication Dosage Frequency Signature (SIG) Comments Components Aptiom 600 mg tablet 05-10 00:00: 00 04-21 00:00 :00 No [id number] 600 mg BEDTIME 600 mg BEDTIME (route: oral) Med Classific ation: Central Nervous System Agents Bactrim DS 800 mg-160 mg tablet 14 00:00: 00 05-21 23:59 :00 No [id number] 800 mg 2 TIMES DAILY 800 mg 2 TIMES DAILY (route: oral) Med Classific ation: Anti-Infe ctive Agents clobazam 10 mg tablet 17 00:00: 00 04-21 00:00 :00 No [id number] 10 mg 2 TIMES DAILY 10 mg 2 TIMES DAILY (route: oral) Med Classific ation: Central Nervous System Agents dicyclomine 10 mg capsule 05-10 00:00: 00 04-21 00:00 :00 No [id number] 10 capsule 4 TIMES DAILY 10 capsule 4 TIMES DAILY (route: oral) Med Classific ation: Gastroint estinal Therapy Agents docusate sodium 100 mg capsule 05-10 00:00: 00 04-21 00:00 :00 No [id number] 100 capsule BEDTIME 100 capsule BEDTIME (route: oral) Med Classific ation: Gastroint estinal Therapy Agents enoxaparin 40 mg/0.4 mL subcutaneou s syringe 05-10 00:00: 00 05-30 23:59 :00 No [id number] 40 mg DAILY 40 mg DAILY (route: subcutaneo us) Med Classific ation: Hematolog ical Agents gabapentin 300 mg capsule 05-10 00:00: 00 04-21 00:00 :00 No [id number] 300 capsule 2 TIMES DAILY 300 capsule 2 TIMES DAILY (route: oral) Med Classific ation: Central Nervous System Agents haloperidol 5 mg tablet 05-10 00:00: 00 04-21 00:00 :00 No [id number] 5 mg BEDTIME 5 mg BEDTIME (route: oral) Med Classific ation: Central Nervous System Agents haloperidol 5 mg tablet 05-10 00:00: 04-21 00:00 :00 No [id number] 5 mg DAILY 5 mg DAILY (route: oral) Med Classific ation: Central Nervous System Agents ibuprofen 800 mg tablet 05-10 00:00: 00 04-21 00:00 :00 No [id number] 800 mg 2 TIMES DAILY 800 mg 2 TIMES DAILY (route: oral) Med Classific ation: Analgesic , Anti-infl ammatory or Antipyret ic magnesium oxide 400 mg (241.3 mg magnesium) tablet 05-10 00:00: 00 04-21 00:00 :00 No [id number] 400 tablet DAILY 400 tablet DAILY (route: oral) Med Classific ation: Electroly te Balance-N utritiona l Products Multi For Her 18 mg iron-600 mcg-40 mcg capsule 05-10 00:00: 00 04-21 00:00 :00 No [id number] 600 mg DAILY 600 mg DAILY (route: oral) Med Classific ation: Electroly te Balance-N utritiona l Products Onfi 10 mg tablet 05-10 00:00: 00 04-21 00:00 :00 No [id number] 10 mg BEDTIME 10 mg BEDTIME (route: oral) Med Classific ation: Central Nervous System Agents Immunizations Ordered Immunization Name Filled Immunization Name Date Status Comments Refusal Reason COVID BOOSTER, COVID BOOSTER 2024-06-27 00:00:00 INFLUENZA, TIV (INACTIVATED) 2024-06-27 00:00:00 Vital Signs Vital Name Observation Time Observation Value Commen ts Temperature 2025-04-21 10:42:00.000 98.1 [degF] BMI (%) 2025-04-21 10:42:00.000 26 kg/m2 Height 2025-04-21 10:42:00.000 66 [in_us] Pulse 2025-04-21 10:42:00.000 72 /min O2 Saturation (%) 2025-04-21 10:42:00.000 98 % Respirations 2025-04-21 10:42:00.000 18 /min Weight (lbs) 2025-04-21 10:42:00.000 163 [lb_av] Systolic Blood Pressure 2025-04-21 10:42:00.000 102 mm [Hg] Diastolic Blood Pressure 2025-04-21 10:42:00.000 60 mm [Hg] Plan of Treatment Planned [...] HEALTH.] Future Scheduled Test SKILLED NU RSE TO REVIEW PATIENT MEDICATIONS (PRESCRIPTION/OTC). INSTRUCT PATIENT/CAREGIVER ON ALL MEDICATIONS INCLUDING PURPOSE, WHEN TO TAKE, IMPORTANCE OF MEDICATION ADHERENCE, MONITORING OF EFFECTIVENESS, ADVERSE DRUG REACTIONS, POSSIBLE SIDE EFFECTS, AND WHEN TO NOTIFY AGENCY OR PHYSICIAN/PROVIDER OF ANY CONCERNS. [code = SKILLED NURSE TO REVIEW PATIENT MEDICATIONS (PRESCRIPTION/OTC). INSTRUCT PATIENT/CAREGIVER ON ALL MEDICATIONS INCLUDING PURPOSE, WHEN TO TAKE, IMPORTANCE OF MEDICATION ADHERENCE, MONITORING OF EFFECTIVENESS, ADVERSE DRUG REACTIONS, POSSIBLE SIDE EFFECTS, AND WHEN TO NOTIFY AGENCY OR PHYSICIAN/PROVIDER OF ANY CONCERNS.] Future Scheduled Test PATIENT EWING S A RISK OF HOSPITALIZATION AND ED USE. SKILLED NURSE TO ESTABLISH SUPPORT MEASURES TO MINIMIZE RISK OF HOSPITALIZATION AND ED USE, AND INSTRUCT PATIENT/CAREGIVER ON METHODS TO REDUCE AVOIDABLE HOSPITALIZATION AND ED USE. [code = PATIENT HAS A RISK OF HOSPITALIZATION AND ED USE. SKILLED NURSE TO ESTABLISH SUPPORT MEASURES TO MINIMIZE RISK OF HOSPITALIZATION AND ED USE, AND INSTRUCT PATIENT/CAREGIVER ON METHODS TO REDUCE AVOIDABLE HOSPITALIZATION AND ED USE.] Future Scheduled Test SKILLED NU RSE TO PROVIDE INSTRUCTION TO PATIENT/CAREGIVER RELATED TO DISCHARGE PLANNING. [code = SKILLED NURSE TO PROVIDE INSTRUCTION TO PATIENT/CAREGIVER RELATED TO DISCHARGE PLANNING.] Future Scheduled Test SKILLED NU RSE TO PERFORM ENVIRONMENTAL SAFETY RISK ASSESSMENT AND FALL RISK ASSESSMENT AND PROVIDE INSTRUCTION TO IMPLEMENT ENVIRONMENTAL SAFETY AND FALL PREVENTION STRATEGIES THROUGHOUT THE CERTIFICATION PERIOD. SKILLED NURSE WILL MAINTAIN SITUATIONAL AWARENESS AND WILL NOTIFY CLINICAL LOGISTICS PLANNING ENGINEER AND PHYSICIAN/PROVIDER WITH ANY CHANGE IN CONDITION. [code = SKILLED NURSE TO PERFORM ENVIRONMENTAL SAFETY RISK ASSESSMENT AND FALL RISK ASSESSMENT AND PROVIDE INSTRUCTION TO IMPLEMENT ENVIRONMENTAL SAFETY AND FALL PREVENTION STRATEGIES THROUGHOUT THE CERTIFICATION PERIOD. SKILLED NURSE WILL MAINTAIN SITUATIONAL AWARENESS AND WILL NOTIFY CLINICAL LOGISTICS PLANNING ENGINEER AND PHYSICIAN/PROVIDER WITH ANY CHANGE IN CONDITION.] Future Scheduled Test SKILLED NU RSE FOR OBSERVATION AND ASSESSMENT OF PATIENTS PAIN LEVEL AND EFFECTIVENESS OF PAIN MANAGEMENT REGIMEN. SKILLED NURSE TO INSTRUCT PATIENT/CAREGIVER REGARDING PHARMACOLOGIC AND NON-PHARMACOLOGIC PAIN CONTROL MEASURES. SKILLED NURSE TO REPORT TO PHYSICIAN IF PAIN LEVEL IS OUTSIDE OF ESTABLISHED PARAMETERS. [code = SKILLED NURSE FOR OBSERVATION AND ASSESSMENT OF PATIENTS PAIN LEVEL AND EFFECTIVENESS OF PAIN MANAGEMENT REGIMEN. SKILLED NURSE TO INSTRUCT PATIENT/CAREGIVER REGARDING PHARMACOLOGIC AND NON-PHARMACOLOGIC PAIN CONTROL MEASURES. SKILLED NURSE TO REPORT TO PHYSICIAN IF PAIN LEVEL IS OUTSIDE OF ESTABLISHED PARAMETERS.] Future Scheduled Test SKILLED NU RSE TO ASSESS PATIENT'S SKIN INTEGRITY AND INSTRUCT PATIENT/CAREGIVER ON MEASURES TO PREVENT PRESSURE ULCERS. [code = SKILLED NURSE TO ASSESS PATIENT'S SKIN INTEGRITY AND INSTRUCT PATIENT/CAREGIVER ON MEASURES TO PREVENT PRESSURE ULCERS.] Future Scheduled Test SKILLED NU RSE TO ASSESS HOME SAFETY FOR PATIENT WITH IMPAIRED VISION AND INSTRUCT PATIENT/CAREGIVER ON SAFETY TECHNIQUES FOR ADLS AND IADLS, MEDICATION MANAGEMENT, AND HOME ADAPTATION. [code = SKILLED NURSE TO ASSESS HOME SAFETY FOR PATIENT WITH IMPAIRED VISION AND INSTRUCT PATIENT/CAREGIVER ON SAFETY TECHNIQUES FOR ADLS AND IADLS, MEDICATION MANAGEMENT, AND HOME ADAPTATION.] Future Scheduled Test SKILLED NU RSE FOR O/A AND SKILLED TEACHING RELATED TO SIGNS AND SYMPTOMS AND MANAGEMENT OF ANEMIA. [code = SKILLED NURSE FOR O/A AND SKILLED TEACHING RELATED TO SIGNS AND SYMPTOMS AND MANAGEMENT OF ANEMIA.] Future Scheduled Test SKILLED NU RSE FOR O/A, TEACHING AND MANAGEMENT OF FREQUENCY FOR EARLY IDENTIFICATION OF EXACERBATION OF DISEASE PROCESS [code = SKILLED NURSE FOR O/A, TEACHING AND MANAGEMENT OF FREQUENCY FOR EARLY IDENTIFICATION OF EXACERBATION OF DISEASE PROCESS] Future Scheduled Test SKILLED NU RSE TO INSTRUCT ON SAFETY MEASURES TO PREVENT INJURY SECONDARY TO SEIZURE DISORDER/IMPAIRED NEUROLOGICAL STATUS. [code = SKILLED NURSE TO INSTRUCT ON SAFETY MEASURES TO PREVENT INJURY SECONDARY TO SEIZURE DISORDER/IMPAIRED NEUROLOGICAL STATUS.] Future Scheduled Test SKILLED NU RSE FOR O/A AND SKILLED TEACHING RELATED TO SIGNS AND SYMPTOMS AND MANAGEMENT OF RIGHT LOWER EXTREMITY TIBIAL PAIN [code = SKILLED NURSE FOR O/A AND SKILLED TEACHING RELATED TO SIGNS AND SYMPTOMS AND MANAGEMENT OF RIGHT LOWER EXTREMITY TIBIAL PAIN] Future Scheduled Test VIRTUAL SIT FREQUENCY: PRN VIRTUAL VISITS MAY BE PERFORMED UTILIZING TELECOMMUNICATIONS SYSTEM TO OPTIMIZE SKILLED SERVICES FURNISHED ON THE PLAN OF CARE. SKILLED NURSE TO ESTABLISH SUPPORT MEASURES TO MINIMIZE RISK OF REHOSPITALIZATION, AND INSTRUCT PATIENT/CAREGIVER ON METHODS TO REDUCE AVOIDABLE HOSPITALIZATION. [code = VIRTUAL VISIT FREQUENCY: PRN VIRTUAL VISITS MAY BE PERFORMED UTILIZING TELECOMMUNICATIONS SYSTEM TO OPTIMIZE SKILLED SERVICES FURNISHED ON THE PLAN OF CARE. SKILLED NURSE TO ESTABLISH SUPPORT MEASURES TO MINIMIZE RISK OF REHOSPITALIZATION, AND INSTRUCT PATIENT/CAREGIVER ON METHODS TO REDUCE AVOIDABLE HOSPITALIZATION.] Future Scheduled Test PHYSICAL T HERAPIST TO EVALUATE PATIENT FOR ENDURANCE, LE WEAKNESS [code = PHYSICAL THERAPIST TO EVALUATE PATIENT FOR ENDURANCE, LE WEAKNESS] Future Scheduled Test SKILLED NU RSE TO PREFILL MEDIPLANNER AND INSTRUCT PATIENT/CAREGIVER ON FILLING MEDIPLANNER DEVICE WEEKLY [code = SKILLED NURSE TO PREFILL MEDIPLANNER AND INSTRUCT PATIENT/CAREGIVER ON FILLING MEDIPLANNER DEVICE WEEKLY] Goal Patient Goal - STAY HEALTHY Goal Provider Goal - A PLAN OF CARE WILL BE ESTABLISHED THAT MEETS PATIENT'S ASSISTED NEEDS AND INCLUDES PATIENT GOAL FOR HOME HEALTH. Goal Provider Goal - PATIENT/CAREGIVER WILL VERBALIZE UNDERSTANDING OF EDUCATION PROVIDED ON MEDICATIONS BY THE END OF THE CERTIFICATION PERIOD. Goal Provider Goal - PATIENT WILL HAVE SUPPORT MEASURES ESTABLISHED TO PREVENT HOSPITALIZATION AND ED USE AND PATIENT/CAREGIVER WILL VERBALIZE/DEMONSTRATE METHODS TO REDUCE AVOIDABLE HOSPITALIZATION AND ED USE BY END OF EPISODE. Goal Provider Goal - PATIENT/CAREGIVER WILL VERBALIZE UNDERSTANDING OF DISCHARGE PLANNING INSTRUCTIONS BY DATE OF DISCHARGE. Goal Provider Goal - PATIENT/CAREGIVER WILL VERBALIZE/DEMONSTRATE EFFECTIVE ENVIRONMENTAL SAFETY AND FALL PREVENTION STRATEGIES, WILL REMAIN SAFE IN THE COMMUNITY, AND WILL BE FREE OF DANGER TO SELF AND OTHERS THROUGHOUT THE CERTIFICATION PERIOD. Goal Provider Goal - PATIENT/CAREGIVER WILL DEMONSTRATE UNDERSTANDING OF PHARMACOLOGIC AND NONPHARMACOLOGIC PAIN CONTROL MEASURES AND PATIENT WILL HAVE IMPROVEMENT IN PAIN INTERFERING WITH ACTIVITY EVIDENCED BY PAIN AT A LEVEL THAT IS ACCEPTABLE TO THE PATIENT AND PAIN LEVEL WITHIN ESTABLISHED PARAMETERS BY END OF CERTIFICATION PERIOD. Goal Provider Goal - PATIENT/CAREGIVER WILL VERBALIZE UNDERSTANDING OF PRESSURE ULCER PREVENTION BY END OF THE EPISODE. Goal Provider Goal - PATIENT/CAREGIVER WILL BE ABLE TO APPLY PRINCIPLES OF ENVIRONMENTAL MODIFICATION TO MAINTAIN THE LEVEL OF SAFETY FOR THE LOW VISION PATIENT WITHIN THE HOME SETTING AND PREVENT FALL/INJURY THIS EPISODE Goal Provider Goal - PATIENT/CARGIVER WILL VERBALIZE UNDERSTANDING OF ANEMIA INCLUDING SIGNS AND SYMPTOMS, MANAGEMENT OF COMPLICATIONS, AND PRESCRIBED TREATMENT REGIMEN BY END OF EPISODE. Goal Provider Goal - PATIENT/CAREGIVER WILL VERBALIZE UNDERSTANDING OF FREQUENCY GENITOURINARY DISEASE PROCESS, AND EXACERBATIONS OF GENITOURINARY DISEASE WILL BE PROMPTLY IDENTIFIED FOR EARLY INTERVENTION THROUGHOUT THE CERTIFICATION PERIOD. Goal Provider Goal - PATIENT/CAREGIVER WILL VERBALIZE/DEMONSTRATE SEIZURE PRECAUTIONS AND CARE OF PATIENT TO PROMOTE SAFETY AND PREVENT INJURY BY THE END OF THE CERTIFICATION PERIOD. Goal Provider Goal - PATIENT/CAREGIVER WILL VERBALIZE UNDERSTANDING OF RIGHT LOWER EXTREMITY TIBIAL PAIN MUSCULOSKELETAL DISEASE INCLUDING SIGNS AND SYMPTOMS, MANAGEMENT, AND PRESCRIBED TREATMENT REGIMEN BY END OF EPISODE. Goal Provider Goal - PATIENT/CAREGIVER WILL UTILIZE VIRTUAL VISITS TO ACHIEVE GOALS OUTLINED ON THE PLAN OF CARE. PATIENT WILL HAVE SUPPORT MEASURES ESTABLISHED TO PREVENT HOSPITALIZATION AND PATIENT/CAREGIVER WILL VERBALIZE/DEMONSTRATE METHODS TO REDUCE AVOIDABLE HOSPITALIZATION THROUGHOUT THE CERTIFICATION PERIOD. Goal Provider Goal - A PHYSICAL THERAPY EVALUATION TO BE COMPLETED WITH RECOMMENDATIONS AND/OR WRITTEN PLAN OF TREATMENT ESTABLISHED FOR PHYSICIANS SIGNATURE. Goal Provider Goal - PATIENT/CAREGIVER WILL DEMONSTRATE UNDERSTANDING OF PREFILLING MEDIPLANNER DEVICE BY THE END OF EPISODE. Progress Notes Progress Notes <paragraph>[Visit Date: 2024 by CATHERINE UNDERWOOD RN, ADMISSION NURSE]:</paragraph><paragraph>SOC 04/21/25 1. THE PATIENT IS RECEIVING HOMECARE DUE TO NEW ONSET/EXACERBATION OF REFRACTORY EPILEPSY 2. ABNORMAL/SIGNIFICANT FINDINGS: PATIENT'S MEDICATION LOCK BOX, PATIENT REPORTS 8/10 PAIN TO RIGHT TIBIAL STATUS POSTS PAST SURGICAL HISTORY 3. CARE COORDINATION DETAILS: PCP TO UP TO START OF CARE WELL REPORTS PAIN LEVEL 4. SKILLED PROCEDURE PERFORMED THIS VISIT: NONE NEEDED THIS VISIT 5. NEXT PHYSICIAN/PROVIDER APPT: PCP 04/24/25 6. 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 PATIENT'S DAUGHTER PRESENT DURING VISIT AND ANSWERING QUESTIONS FOR PATIENT AT TIMES DUE TO PATIENT'S FORGETFULNESS AND APHASIA. PATIENT IS RECEIVING HOME CARE RELATED TO REFRACTORY EPILEPSY PATIENT WAS RECENTLY DISCHARGED FROM THE HOSPITAL AFTER BEING SENT FROM THE REHAB RELATED TO BEING FOUND ON THE FLOOR STATUS POST FALL HAVING DIFFICULTY TO AROSE. PATIENT HAS HISTORY OF MULTIPLE FALLS. PATIENT NOW BACK HOME WITH HER DAUGHTER. PATIENT HAS BEEN FOLLOWED BY NEUROLOGY AT [facility] HAD VAGUS NERVE STIMULATOR THERAPY AND IS ON MULTIPLE MEDICATIONS PATIENT ALSO HAS A HISTORY OF PSYCHOSIS ON HALDOL. PATIENT'S PRIMARY MEDICAL HISTORY SEIZURE DISORDER, HISTORY OF ASTROCYTOMA, FREQUENT FALLS, URINARY FREQUENCY, ANEMIA . PATIENT'S DME IN THE HOME SHOWER CHAIR WALKER GRAB BAR BEDSIDE COMMODE MEDIPLANNER LOCKBOX. PATIENT IS A MODERATE RISK FOR HOSPITALIZATION. PATIENT HAS A RISK FOR FALLS RELATED TO HER SEIZURES. SN ASSESSMENTS PATIENT'S LUNG SOUNDS CLEAR NO WHEEZING OR CRACKLES, NO LOWER EXTREMITIES EDEMA, BOWEL SOUNDS X4 LAST BOWEL MOVEMENT TODAY, SKIN CLEAR INTACT NO BRUISING OR OPEN AREAS, ABDOMEN SOFT NONTENDER, PATIENT WITH EVIDENCE OF COGNITIVE IMPAIRMENT UNABLE TO PASS BIMS, FORGETFUL. PRIOR FUNCTION NEEDED HELP. PATIENT NEEDS ASSISTANCE WITH ADLS AND IADLS HAS PACKING LINE WORKER SERVICES WEEKLY TO ASSIST WITH TASKS RELATED TO POOR GAIT INSTABILITY IMPAIRED VISION AND IMPAIRED COGNITION PAIN, SEIZURE DISORDER. PATIENT MEDICATION RECONCILED WITH MEDICATIONS IN THE HOME WELL MEDICATION DISCHARGED LIST PATIENT ONLY MISSING MAGNESIUM AND PROTONIX WHICH PCP IS MADE AWARE AND IS WAITING FOR REFILLS NO OTHER CRITICAL CONCERNS. PATIENT CAREGIVER EDUCATED ON PHENOBARBITAL AND HALDOL USE AND SIDE EFFECT. PATIENT CAREGIVER AND PATIENT WERE EDUCATED ON CALLING [facility] FIRST FOR ANY CONCERNS OR CHANGE IN CONDITION WELL NEXT SN VISIT THEY BOTH VERBALIZED UNDERSTANDING AND AGREES WITH PLAN. FOCUS OF CARE SN 1 TIMES PER WEEK FOR MEDICATION MANAGEMENT AND REVIEW, PHYSICAL ASSESSMENT, SAFETY AND FALL PREVENTION EDUCATION, PHYSICAL THERAPY TO EVALUATE AND TREAT NECESSARY. PATIENT IS TO BE DISCHARGED TO FAMILY CARE UNDER THE SUPERVISION OF MD WHEN ALL GOALS ARE MET</paragraph> Encounters Start Date/Time End Date/Time Encounter Type Admission Type Attending Clinicians [facility] Facility Care Department Encounter ID Discharge Date Discharge Status Discharge Condition Discharge Reason Percent Goals Met 2025-04-21 00:00:00 2025-06-19 00:00:00 Outpatient LETI LEVY [facility] [id number]
== END 2025-04-24 15:28 | disposition home or self-care (01) ==
LOC: HO.HMCH 13:40
PROVIDERS: Visit Provider Nurse Practitioner Family
DX: S09.90XA Unspecified injury of head, initial encounter (principal)

== ENCOUNTER → 2025-04-24 13:40 | Outpatient (BNVA) | payer MEDICARE, SELFPAY | PROVIDERS: Visit Provider Nurse Practitioner Family | DX: S09.90XD Unspecified injury of head, subsequent encounter (principal) | CPT/HCPCS: 99212 ==

== ENCOUNTER 2025-04-30 13:56 | Outpatient (AMB) | payer MEDICARE, MEDICAID, SELFPAY ==
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
[2025-04-30 14:03] VITALS: BP 130/72; PULSE 70; TEMP 36.2; O2SAT 100; BMI 29.3
--- OUTSIDE RECORDS SUMMARY | 2025-04-30 14:07 | XMS_ITS | Encounter Summary ---
Author Organization [facility] Address [address] [place] [address] Drive [address] [place] [address] Phone Care Team Providers Care Order Processing Specialist Name Role Phone Paul Grady MD Primary Care Provider [phone] Jacky Zelaya MD Unavailable [phone] Unknown, Unknown Primary Care Provider Lara Su MD Primary Care Provid er Encounter Details Date Type Department Care Team (Late st Contact Info) Description 04/26/2018 Procedure Pass [facility] MR Imaging, Resendiz [address] [place] [address] Social History Tobacco Use Types Packs/Day Years [...] Info) Description 05/08/2025 9:30 AM EDT Telemedicine [facility] Department of Neurosurgery [address] [place] [address] Brody Sibley MD, PhD [address] [facility] 4 [place] [address] [email or web address] documented as of this encounter Visit Diagnoses Not on filedocumented in this encounter Care Teams Order Processing Specialist Relationship Specialty Start Date End Date Paul Grady MD [address] [place] [address] Dr CLARKE [address] [place] [id number] PCP - General Internal Medicine 03/07/17 04/23/21 Unknown, Unknown, MD PCP - General 04/24/21 07/14/21 Lara Mercado MD [address] [place] [address] PCP - General Internal Medicine 07/15/21 Jacky Zelaya MD [address] [place] [address] [place] [address] [email or web address] Medical Student Neurology 11/07/19 09/06/20 documented as of this encounter Additional Source Comments The information contained in this document represents components of the legal health record. It is not the complete legal health record.[facility]
--- OUTSIDE RECORDS SUMMARY | 2025-04-30 14:07 | XMS_ITS | Encounter Summary ---
Author Organization [facility] Address [address] [place] [address] 7 [place] [address] Care Team Providers Care Backfiller Name Role Phone Unavailable Primary Care Provider [...]
--- OUTSIDE RECORDS SUMMARY | 2025-04-30 14:07 | XMS_ITS | Clinical Summary ---
Author Organization [facility] Address [address] [place] [address] Care Team Providers Care Activity Therapy Specialist Name Role Phone Unavailable Primary Care [...]
--- OUTSIDE RECORDS SUMMARY | 2025-04-30 14:07 | XMS_ITS | Clinical Summary ---
Author Organization [facility] Address [address] [place] [address] Care Team Providers Care Precipitate Washer Name Role Phone Lara Mercado MD Primary Care Provider [phone] Social History Tobacco Use Types Packs/Day Years [...] Medicaid [place] Care Teams Precipitate Washer Relationship Specialty Start Date End Date Lara Mercado MD [address] [place] [address] PCP - General Internal Medicine 11/11/20
== END 2025-04-30 15:14 | disposition home or self-care (01) ==
PROVIDERS: Visit Provider Internal Medicine
DX: R60.0 Localized edema (principal); R41.89 Other symptoms and signs involving cognitive functions and awareness; G40.909 Epilepsy, unspecified, not intractable, without status epilepticus; K59.04 Chronic idiopathic constipation; F33.0 Major depressive disorder, recurrent, mild; K21.9 Gastro-esophageal reflux disease without esophagitis

== ENCOUNTER 2025-04-30 13:56 | Outpatient (REF) | payer MEDICARE, MEDICAID, SELFPAY ==
[2025-04-30 15:48] LABS: MANUAL DIFF FLAG NO
[2025-04-30 17:12] LABS: Hematocrit 30.5 % (37.0-47.0); Hemoglobin 10.3 g/dl (12.0-16.0); Imm Gran Abs Auto 0.01 X10*3/uL (0.00-0.03); Imm Gran Pct Auto 0.3 % (0.0-0.4); Lymphocytes Absolute Auto 1.1 X10*3/uL (1.2-4.9); Mean Corpuscular HGB Conc 33.8 g/dl (31.0-35.0); Mean Corpuscular Hemoglobin 31.7 pg (27.0-33.0); Mean Corpuscular Volume 93.8 fL (80.0-98.0); NRBC Abs Auto 0.000 X10*3/uL (0.0-0.012); NRBC Pct Auto 0.0 /100WBC (0.0-0.2); Platelet Count 187 X10*3/uL (160-400); Red Blood Count 3.25 X10*6/uL (4.20-5.50); White Blood Count 3.3 X10*3/uL (4.8-10.8)
[2025-04-30 18:08] LABS: Folate 5.5 ng/mL (> or = 4.0); Vitamin B12 369 pg/mL (200-900)
== END 2025-04-30 13:57 | disposition home or self-care (01) ==
LOC: HO.LAB 13:56
PROVIDERS: PCP Internal Medicine; Visit Provider Internal Medicine
DX: R60.0 Localized edema (principal); R41.89 Other symptoms and signs involving cognitive functions and awareness; G40.909 Epilepsy, unspecified, not intractable, without status epilepticus; K59.04 Chronic idiopathic constipation; F33.0 Major depressive disorder, recurrent, mild; K21.9 Gastro-esophageal reflux disease without esophagitis; E53.8 Deficiency of other specified B group vitamins; E55.9 Vitamin D deficiency, unspecified
CPT/HCPCS: 36415; 82306; 82607; 82746; 85025; 99212

== ENCOUNTER 2025-05-18 10:49 | Outpatient (REF) | payer MEDICARE, MEDICAID, SELFPAY ==
[2025-05-18 11:59] LABS: Alanine Aminotransferase 35 U/L (0-31); Albumin Level 4.0 g/dL (3.5-5.0); Alkaline Phosphatase 117 U/L (39-117); Anion Gap 16 (12-20); Aspartate Amino Transferase 36 U/L (5-31); Blood Urea Nitrogen 15 mg/dL (9-16); Calcium 9.1 mg/dL (8.4-10.2); Carbon Dioxide 23 mmol/L (22-29); Chloride 102 mmol/L (96-108); Cholesterol 188 mg/dL (<200); Estimated Glomerular Filt Rate > 60; HDL Cholesterol 72 mg/dL (>40); Potassium 5.1 mmol/L (3.3-5.1); Sodium 136 mmol/L (135-145); Total Protein 6.9 g/dL (6.5-8.0); Triglycerides 52 mg/dL (<150)
--- OUTSIDE RECORDS SUMMARY | 2025-05-18 12:02 | XMS_ITS | Encounter Summary ---
Author Organization [employer] [facility] Address [address] [place] [address] 7 [place] [address] Care Team Providers Care Satellite Technician Name Role Phone Unavailable Primary Care Provider [...]
--- OUTSIDE RECORDS SUMMARY | 2025-05-18 12:02 | XMS_ITS | Clinical Summary ---
Author Organization [facility] Address [address] [place] [address] Care Team Providers Care Cq Developer Name Role Phone Lara Mercado MD Primary Care Provider [phone] Social History Tobacco Use Types Packs/Day Years [...] Medicaid [place] Medicare Medicaid [place] Care Teams Cq Developer Relationship Specialty Start Date End Date Lara Mercado MD [address] [place] [address] PCP - General Internal Medicine 11/11/20
--- OUTSIDE RECORDS SUMMARY | 2025-05-18 12:02 | XMS_ITS | Clinical Summary ---
Author Organization [facility] Address [address] [place] [address] Care Team Providers Care Insurance Specialist Name Role Phone Unavailable Primary Care [...]
--- OUTSIDE RECORDS SUMMARY | 2025-05-18 12:02 | XMS_ITS | Encounter Summary ---
Author Organization [facility] Address [address] [place] [address] Drive [address] [place] [address] Phone Care Team Providers Care Coil Rewind Machine Operator Name Role Phone Paul Grady MD Primary Care Provider [phone] Jacky Zelaya MD Unavailable [phone] Unknown, Unknown Primary Care Provider Lara Su MD Primary Care Provid er Encounter Details Date Type Department Care Team (Late st Contact Info) Description 04/26/2018 Procedure Pass [facility] MR Imaging, Resendiz [address] [place] [address] Social History Tobacco Use Types Packs/Day Years [...] of Assessment Author No 03/16/2017 10:51 AM Tashia Maurer PA * Patient has serious difficulty dressing or bathing (5yr old or older) Answer Date of Assessment Author No 03/16/2017 10:51 AM Tashia Maurer PA * Patient has serious difficulty doing errands alone such as visiting a doctor???s office or shopping, due to physical, mental, or emotional condition (15 years old or older) Answer Date of Assessment Author No 03/16/2017 10:51 AM Tashia Maurer PA documented as of this encounter Mental Status * Patient has serious difficulty concentrating, remembering, or making decisions due to physical, mental, or emotional condition Answer Entry Date Author No 03/16/2017 10:51 AM Tashia Maurer PA documented in this encounter Plan of Treatment Not on file documented as of this encounter Visit Diagnoses Not on filedocumented in this encounter Care Teams Coil Rewind Machine Operator Relationship Specialty Start Date End Date Paul Grady MD [address] [place] [address] [place] [address] PCP - General Internal Medicine 03/07/17 04/23/21 Unknown, [place], PCP - General 04/24/21 07/14/21 Lara Mercado MD [address] [place] [address] PCP - General Internal Medicine 07/15/21 Jacky Zelaya MD [address] [place] [address] [place] [address] [email or web address] Medical Student Neurology 11/07/19 09/06/20 documented as of this encounter Additional Source Comments The information contained in this document represents components of the legal health record. It is not the complete legal health record.[facility]
--- OUTSIDE RECORDS SUMMARY | 2025-06-18 20:00 | XMS_ITS | Clinical Summary ---
Author Organization Unknown Care Team Providers Care Advertising Account Representative Name Role Phone SUNITA CUENCA MD, BRITTANY Unavailable Unavailable MARAL PAYAN, LETI Unavailable Unavailable RACHID PT, VIC Unavailable Unavailable Payers Payer Name Policy Type Policy Number Effective Date Expira tion Date MEDICARE - [place]GS [place] - PD [id number] Problems Condition Name Condition Details Condition Category Status Onset Date Resolution Date Last Treatment Date Treating Clinician Comments EPILEPSY, UNSP, INTRACTABLE, WITHOUT STATUS EPILEPTICUS Active 09-24 00:00: 00 ANEMIA, UNSPECIFIED Active 09-24 00:00: 00 REPEATED FALLS Active 09-24 00:00: 00 FREQUENCY OF MICTURITION Active 09-24 00:00: 00 Obesity, class 1 Active 09-24 00:00: 00 PERSONAL HISTORY OF MALIGNANT NEOPLASM OF BRAIN Active 09-24 00:00: 00 BODY MASS INDEX [BMI] 26.0-26.9, ADULT Active 09-24 00:00: 00 Problems related to health literacy Active 09-24 00:00: 00 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 Active 09-24 00:00: 00 Allergies, Adverse Reactions, Alerts Allergy [...] (SIG) Comments Components Aptiom 600 mg tablet 8-17 00:00: 00 04-21 00:00 :00 No [id number] 600 mg BEDTIME 600 mg BEDTIME (route: oral) Med Classific ation: Central Nervous System Agents Bactrim DS 800 mg-160 mg tablet -14 00:00: 00 05-21 23:59 :00 No [id number] 800 mg 2 TIMES DAILY 800 mg 2 TIMES DAILY (route: oral) Med Classific ation: Anti-Infe ctive Agents clobazam 10 mg tablet 05-10 00:00: 00 04-21 00:00 :00 No [id number] 10 mg 2 TIMES DAILY 10 mg 2 TIMES DAILY (route: oral) Med Classific ation: Central Nervous System Agents dicyclomine 10 mg capsule 05-10 00:00: 00 04-21 00:00 :00 No [id number] 10 capsule 4 TIMES DAILY 10 capsule 4 TIMES DAILY (route: oral) Med Classific ation: Gastroint estinal Therapy Agents docusate sodium 100 mg capsule 05-10 00:00: 00 04-21 00:00 :00 No [id number] 100 capsule BEDTIME 100 capsule BEDTIME (route: oral) Med Classific ation: Gastroint estinal Therapy Agents enoxaparin 40 mg/0.4 mL subcutaneou s syringe 05-10 00:00: 00 05-30 23:59 :00 No [id number] 40 mg DAILY 40 mg DAILY (route: subcutaneo us) Med Classific ation: Hematolog ical Agents gabapentin 300 mg capsule 05-10 00:00: 00 04-21 00:00 :00 No [id number] 300 capsule 2 TIMES DAILY 300 capsule 2 TIMES DAILY (route: oral) Med Classific ation: Central Nervous System Agents haloperidol 5 mg tablet 05-10 00:00: 00 04-21 00:00 :00 No [id number] 5 mg BEDTIME 5 mg BEDTIME (route: oral) Med Classific ation: Central Nervous System Agents haloperidol 5 mg tablet 05-10 00:00: 00 04-21 00:00 :00 No [id number] 5 mg DAILY 5 mg DAILY (route: oral) Med Classific ation: Central Nervous System Agents ibuprofen 800 mg tablet 05-10 00:00: 00 04-21 00:00 :00 No [id number] 800 mg 2 TIMES DAILY 800 mg 2 TIMES DAILY (route: oral) Med Classific ation: Analgesic , Anti-infl ammatory or Antipyret ic magnesium oxide 400 mg (241.3 mg magnesium) tablet 05-10 00:00: 00 04-21 00:00 :00 No [id number] 400 tablet DAILY 400 tablet DAILY (route: oral) Med Classific ation: Electroly te Balance-N utritiona l Products Multi For Her 18 mg iron-600 mcg-40 mcg capsule 05-10 00:00: 00 04-21 00:00 :00 No [id number] 600 mg DAILY 600 mg DAILY (route: oral) Med Classific ation: Electroly te Balance-N utritiona l Products Onfi 10 mg tablet 05-10 00:00: 00 04-21 00:00 :00 No [id number] 10 mg BEDTIME 10 mg BEDTIME (route: oral) Med Classific ation: Central Nervous System Agents Immunizations Ordered Immunization Name Filled Immunization Name Date Status Comments Refusal Reason COVID BOOSTER, COVID BOOSTER 2024-06-27 00:00:00 INFLUENZA, TIV (INACTIVATED) 2024-06-27 00:00:00 Vital Signs Vital Name Observation Time Observation Value Commen ts Temperature 2025-05-14 10:14:00.000 97.5 [degF] Temperature 2025-05-12 10:10:00.000 96.7 [degF] Temperature 2025-05-05 10:13:00.000 96.6 [degF] Temperature 2025-05-04 11:30:00.000 97.7 [degF] Temperature 2025-04-28 10:10:00.000 97.8 [degF] Temperature 2025-04-27 09:38:00.000 97.9 [degF] Temperature 2025-04-21 10:42:00.000 98.1 [degF] BMI (%) 2025-04-21 10:42:00.000 26 kg/m2 Height 2025-04-21 10:42:00.000 66 [in_us] Pulse 2025-05-14 10:14:00.000 75 /min Pulse 2025-05-12 10:10:00.000 68 /min Pulse 2025-05-05 10:13:00.000 71 /min Pulse 2025-05-04 11:30:00.000 67 /min Pulse 2025-04-28 10:10:00.000 74 /min Pulse 2025-04-27 09:38:00.000 73 /min Pulse 2025-04-21 10:42:00.000 72 /min O2 Saturation (%) 2025-05-14 10:14:00.000 95 % O2 Saturation (%) 2025-05-12 10:10:00.000 99 % O2 Saturation (%) 2025-05-05 10:13:00.000 98 % O2 Saturation (%) 2025-05-04 11:30:00.000 98 % O2 Saturation (%) 2025-04-28 10:10:00.000 99 % O2 Saturation (%) 2025-04-27 09:38:00.000 100 % O2 Saturation (%) 2025-04-21 10:42:00.000 98 % Respirations 2025-05-14 10:14:00.000 18 /min Respirations 2025-05-12 10:10:00.000 18 /min Respirations 2025-05-05 10:13:00.000 18 /min Respirations 2025-05-04 11:30:00.000 18 /min Respirations 2025-04-28 10:10:00.000 18 /min Respirations 2025-04-27 09:38:00.000 17 /min Respirations 2025-04-21 10:42:00.000 18 /min Weight (lbs) 2025-04-21 10:42:00.000 163 [lb_av] Systolic Blood Pressure 2025-05-14 10:14:00.000 112 mm [Hg] Systolic Blood Pressure 2025-05-12 10:10:00.000 114 mm [Hg] Systolic Blood Pressure 2025-05-05 10:25:00.000 112 mm [Hg] Systolic Blood Pressure 2025-05-04 11:30:00.000 112 mm [Hg] Systolic Blood Pressure 2025-04-28 10:10:00.000 110 mm [Hg] Systolic Blood Pressure 2025-04-27 09:38:00.000 118 mm [Hg] Systolic Blood Pressure 2025-04-21 10:42:00.000 102 mm [Hg] Diastolic Blood Pressure 2025-05-14 10:14:00.000 60 mm [Hg] Diastolic Blood Pressure 2025-05-12 10:10:00.000 64 mm [Hg] Diastolic Blood Pressure 2025-05-05 10:25:00.000 64 mm [Hg] Diastolic Blood Pressure 2025-05-04 11:30:00.000 54 mm [Hg] Diastolic Blood Pressure 2025-04-28 10:10:00.000 60 mm [Hg] Diastolic Blood Pressure 2025-04-27 09:38:00.000 60 mm [Hg] Diastolic Blood Pressure 2025-04-21 10:42:00.000 [...] MAINTAIN SITUATIONAL AWARENESS AND WILL NOTIFY CLINICAL HYDROGRAPHICAL TECHNICAL OFFICER AND PHYSICIAN/PROVIDER WITH ANY CHANGE IN CONDITION. [code = SKILLED NURSE TO PERFORM ENVIRONMENTAL SAFETY RISK ASSESSMENT AND FALL RISK ASSESSMENT AND PROVIDE INSTRUCTION TO IMPLEMENT ENVIRONMENTAL SAFETY AND FALL PREVENTION STRATEGIES THROUGHOUT THE CERTIFICATION PERIOD. SKILLED NURSE WILL MAINTAIN SITUATIONAL AWARENESS AND WILL NOTIFY CLINICAL HYDROGRAPHICAL TECHNICAL OFFICER AND PHYSICIAN/PROVIDER WITH ANY CHANGE IN CONDITION.] [...] INSTRUCT PATIENT/CAREGIVER ON FILLING MEDIPLANNER DEVICE WEEKLY] Future Scheduled Test PHYSICAL T HERAPIST TO EVALUATE PATIENT SECONDARY TO FUNCTIONAL DEFICITS/SAFETY CONCERNS. PHYSICAL THERAPIST TO ASSESS BEST PRACTICE INTERVENTIONS TO ASSIST PATIENTS TO IMPROVE OR STABILIZE MEDICAL STATUS AND PREVENT RE-HOSPITALIZATION. MEASURES INCLUDING REVIEW AND IDENTIFICATION OF CONCERNS FOR THE FOLLOWING AREAS: DEPRESSION, DRUG REGIMEN, ENVIRONMENTAL SAFETY ISSUES AND FALLS, PRESSURE ULCERS, PAIN, AND DISEASE MANAGEMENT. PHYSICAL THERAPY TO ESTABLISH /UPGRADE/DOWNGRADE THERAPEUTIC EXERCISE PROGRAM AND INSTRUCT PATIENT/CAREGIVER ON EXERCISE PRECAUTIONS WITH WRITTEN HOME PROGRAM. MAY INCLUDE PROM, AAROM, AROM, RROM APPROPRIATE TO IMPROVE FUNCTIONAL STRENGTH AND RANGE OF MOTION. PHYSICAL THERAPY TO INSTRUCT PATIENT/CAREGIVER ON BED MOBILITY TECHNIQUES TO IMPROVE PATIENT MOBILITY AND POSITIONING TECHNIQUES IN ORDER TO INCREASE PATIENTS COMFORT AND DECREASE RISK OF SKIN BREAKDOWN. PHYSICAL THERAPY TO INSTRUCT PATIENT/CAREGIVER ON SAFE TRANSFER TECHNIQUES USING PROPER BODY MECHANICS AND EQUIPMENT. PHYSICAL THERAPY TO INSTRUCT PATIENT/CAREGIVER ON GAIT TRAINING TECHNIQUES USING APPROPRIATE ASSISTIVE DEVICE, PROPER BODY MECHANICS TO IMPROVE MOBILITY, AND PREVENT INJURY OF PATIENT AND/OR CAREGIVER. PHYSICAL THERAPY TO ASSESS AND RECOMMEND HOME SAFETY ADAPTATIONS AND EDUCATE PATIENT /CAREGIVER ON FALL PREVENTION STRATEGIES. PHYSICAL THERAPY FOR OBSERVATION AND ASSESSMENT OF PAIN, EFFECTIVENESS OF PAIN MANAGEMENT REGIMEN AND SKILLED TEACHING RELATED TO PAIN MANAGEMENT. THERAPIST TO REPORT INCREASED PAIN LEVEL TO PHYSICIAN FOR PROMPT INTERVENTION. PHYSICAL THERAPY TO INSTRUCT PATIENT/CAREGIVER ON BALANCE AND BALANCE STRATEGIES TO IMPROVE SAFE MOBILITY AND REDUCE RISK FOR FALL AND INJURY SUMMARY OF THERAPY EVAL/ASSESSMENT FINDINGS AND REASON(S) SKILLS OF A THERAPIST ARE INDICATED: PHYSICAL THERAPY EVALUATION (04/28/25) PATIENT IS A FORGETFUL 59 YO FEMALE WITH PHYSICAL THERAPY REFERRAL AFTER HOSPITALIZATION DUE TO FALL WHILE AT SNF ([facility]), PREVIOUS HOSPITALIZATION 02/23-03/13/25 MD DX: REFRACTORY EPILEPSY EXACERBATION. PATIENT HAS BEEN FOLLOWED BY NEUROLOGY AT [facility], S/P VAGUS NERVE STIMULATOR THERAPY. PAST MD HX: SEIZURE DISORDER, HISTORY OF ASTROCYTOMA X 2 ASTROCYTOMA EXCISION, PSYCHOSIS, POLYARTHRALGIA, DEPRESSION, EXPRESSIVE APHASIA, HYPOTENSION, FREQUENT FALLS, URINARY FREQUENCY, ANEMIA, RIGHT TIBIAL FX WITH ORIF, T12 VERTEBRA FX, OBESITY. FALL HISTORY: MULTIPLE FALLS WHEN AT SNF, LAST FALL PATIENT WAS FOUND ON THE FLOOR, SLOW TO RESPOND AND WAS HOSPITALIZED. PLOF: REQUIRED ASSISTANCE WITH TRANSFERS AND AMB, ADLS AND IADLS HAS CASE FINISHER SERVICES WEEKLY TO ASSIST WITH TASKS RELATED TO POOR GAIT INSTABILITY IMPAIRED VISION AND IMPAIRED COGNITION PAIN, SEIZURE DISORDER. PATIENT LIVES WITH HER DAUGHTER ENRIQUETA (WHO IS AUTISTIC) IN A SECOND-FLOOR OF 2 FAMILY HOME, 4 STAIRS WITH RAIL, 13 STAIRS WITH BILATERAL RAIL. PATIENT HAS 42.15 CASE FINISHER HOURS WEEKLY. DTR NANO IS PRIMARY CG, REPORTS PLAN FOR PATIENT TO MOVE INTO 55+ APARTMENT. CLOF: DME: ROLLATOR, BSC, SHOWER CHAIR, TUB TRANSFER BENCH, GRAB BAR, LIFE ALERT CG NANO PRESENT DURING EVALUATION. PATIENT HAS APHASIA AND WAS FATIGUED DURING VISIT, FELL ASLEEP MULTIPLE TIMES. NANO REPORTS PATIENT DOES NOT SLEEP WELL AT NIGHT AND SLEEPS DURING THE DAY. NANO REPORTS HAS CONTACTED ACCESS TO INCREASE DAYTIME CASE FINISHER HRS: CONTACT AT [facility]: NURSE DOMINGUEZ [phone], DIE TURNER HALINA GARCIA [phone]. RECOMMEND HIGHER POWER RECLINER WITH THIS THERAPIST TO CONTACT ACCESS TO DETERMINE IF PROGRAM WILL PAY. RECOMMEND TRANSFER WHEELCHAIR AND BED RAIL ACQUISITON. PATIENT REPORTS BILAT FEET PAIN 10/10. PATIENT DEMO EDEMA BILAT LE, EDUC ON EDEMA CONTROL. BILAT LE ROM WFL, BILAT LE STRENGTH AT LEAST 3 TO 3+/5, UNABLE TO MANUAL MUSCLE TEST DUE TO DECREASED COGNITION. BED MOBILITY NOT ATTEMPTED THIS VISIT PATIENT AND CG REPORT PATIENT HAS BEEN SLEEPING IN RECLINER. PATIENT COMPLETED SIT-->STAND FROM LOW HEIGHT RECLINER WITH ROLLATOR AND MIN A. PATIENT REQUIRED VERBAL CUES FOR UE AND LE SEQUENCING AND INCREASING COM OVER PABLITO. STATIC STAND = FAIR-. PATIENT AMB 20' WITH ROLLATOR AND MIN A, ASSIST WITH TURNS. PATIENT DEMO BILAT LE STEP LENGHTS WITH REDUCED HIP FLEX WITH SWING PHASE, ADEQUATE FEET CLEARANCE, 0 LOB. PATIENT PRESENTS WITH THE FOLLOWING DEFICITS: SEIZURES, PAIN, DECREASED BILAT LE STRENGTH, RESULTING IN DIFFICULTY WITH TRANSFERS AND AMB. SKILLED [facility] POC 1X4WKS TO ADDRESS DEFICITS, MAX SAFETY AND FUNCTIONAL LEVEL IN HOME ENVIRONMENT WITH THER EXER, ESTABLISH HEP, TRANSFER AND GAIT TRAINING. PATIENT AND CG INFORMED ABOUT PHYSICAL THERAPY POC INCLUDING FREQ, VERBALIZED ACCEPTANCE. [code = PHYSICAL THERAPIST TO EVALUATE PATIENT SECONDARY TO FUNCTIONAL DEFICITS/SAFETY CONCERNS. PHYSICAL THERAPIST TO ASSESS BEST PRACTICE INTERVENTIONS TO ASSIST PATIENTS TO IMPROVE OR STABILIZE MEDICAL STATUS AND PREVENT RE-HOSPITALIZATION. MEASURES INCLUDING REVIEW AND IDENTIFICATION OF CONCERNS FOR THE FOLLOWING AREAS: DEPRESSION, DRUG REGIMEN, ENVIRONMENTAL SAFETY ISSUES AND FALLS, PRESSURE ULCERS, PAIN, AND DISEASE MANAGEMENT. PHYSICAL THERAPY TO ESTABLISH /UPGRADE/DOWNGRADE THERAPEUTIC EXERCISE PROGRAM AND INSTRUCT PATIENT/CAREGIVER ON EXERCISE PRECAUTIONS WITH WRITTEN HOME PROGRAM. MAY INCLUDE PROM, AAROM, AROM, RROM APPROPRIATE TO IMPROVE FUNCTIONAL STRENGTH AND RANGE OF MOTION. PHYSICAL THERAPY TO INSTRUCT PATIENT/CAREGIVER ON BED MOBILITY TECHNIQUES TO IMPROVE PATIENT MOBILITY AND POSITIONING TECHNIQUES IN ORDER TO INCREASE PATIENTS COMFORT AND DECREASE RISK OF SKIN BREAKDOWN. PHYSICAL THERAPY TO INSTRUCT PATIENT/CAREGIVER ON SAFE TRANSFER TECHNIQUES USING PROPER BODY MECHANICS AND EQUIPMENT. PHYSICAL THERAPY TO INSTRUCT PATIENT/CAREGIVER ON GAIT TRAINING TECHNIQUES USING APPROPRIATE ASSISTIVE DEVICE, PROPER BODY MECHANICS TO IMPROVE MOBILITY, AND PREVENT INJURY OF PATIENT AND/OR CAREGIVER. PHYSICAL THERAPY TO ASSESS AND RECOMMEND HOME SAFETY ADAPTATIONS AND EDUCATE PATIENT /CAREGIVER ON FALL PREVENTION STRATEGIES. PHYSICAL THERAPY FOR OBSERVATION AND ASSESSMENT OF PAIN, EFFECTIVENESS OF PAIN MANAGEMENT REGIMEN AND SKILLED TEACHING RELATED TO PAIN MANAGEMENT. THERAPIST TO REPORT INCREASED PAIN LEVEL TO PHYSICIAN FOR PROMPT INTERVENTION. PHYSICAL THERAPY TO INSTRUCT PATIENT/CAREGIVER ON BALANCE AND BALANCE STRATEGIES TO IMPROVE SAFE MOBILITY AND REDUCE RISK FOR FALL AND INJURY SUMMARY OF THERAPY EVAL/ASSESSMENT FINDINGS AND REASON(S) SKILLS OF A THERAPIST ARE INDICATED: PHYSICAL THERAPY EVALUATION (04/28/25) PATIENT IS A FORGETFUL 59 YO FEMALE WITH PHYSICAL THERAPY REFERRAL AFTER HOSPITALIZATION DUE TO FALL WHILE AT SNF ([facility]), PREVIOUS HOSPITALIZATION 02/23-03/13/25 DX: REFRACTORY EPILEPSY EXACERBATION. PATIENT HAS BEEN FOLLOWED BY NEUROLOGY AT [facility] AND [facility], S/P VAGUS NERVE STIMULATOR THERAPY. PAST MD HX: SEIZURE DISORDER, HISTORY OF ASTROCYTOMA X 2 ASTROCYTOMA EXCISION, PSYCHOSIS, POLYARTHRALGIA, DEPRESSION, EXPRESSIVE APHASIA, HYPOTENSION, FREQUENT FALLS, URINARY FREQUENCY, ANEMIA, RIGHT TIBIAL FX WITH ORIF, T12 VERTEBRA FX, OBESITY. FALL HISTORY: MULTIPLE FALLS WHEN AT SNF, LAST FALL PATIENT WAS FOUND ON THE FLOOR, SLOW TO RESPOND AND WAS HOSPITALIZED. PLOF: REQUIRED ASSISTANCE WITH TRANSFERS AND AMB, ADLS AND IADLS HAS CASE FINISHER SERVICES WEEKLY TO ASSIST WITH TASKS RELATED TO POOR GAIT INSTABILITY IMPAIRED VISION AND IMPAIRED COGNITION PAIN, SEIZURE DISORDER. PATIENT LIVES WITH HER DAUGHTER ENRIQUETA (WHO IS AUTISTIC) IN A SECOND-FLOOR OF 2 FAMILY HOME, 4 STAIRS WITH RAIL, 13 STAIRS WITH BILATERAL RAIL. PATIENT HAS 42.15 CASE FINISHER HOURS WEEKLY. DTR NANO IS PRIMARY CG, REPORTS PLAN FOR PATIENT TO MOVE INTO 55+ APARTMENT. CLOF: DME: ROLLATOR, BSC, SHOWER CHAIR, TUB TRANSFER BENCH, GRAB BAR, LIFE ALERT CG NANO PRESENT DURING EVALUATION. PATIENT HAS APHASIA AND WAS FATIGUED DURING VISIT, FELL ASLEEP MULTIPLE TIMES. NANO REPORTS PATIENT DOES NOT SLEEP WELL AT NIGHT AND SLEEPS DURING THE DAY. NANO REPORTS HAS CONTACTED ACCESS TO INCREASE DAYTIME CASE FINISHER HRS: CONTACT AT [facility]: NURSE DOMINGUEZ [phone], DIE TURNER HALINA GARCIA [phone]. RECOMMEND HIGHER POWER RECLINER WITH THIS THERAPIST TO CONTACT ACCESS TO DETERMINE IF PROGRAM WILL PAY. RECOMMEND TRANSFER WHEELCHAIR AND BED RAIL ACQUISITON. PATIENT REPORTS BILAT FEET PAIN 10/10. PATIENT DEMO EDEMA BILAT LE, EDUC ON EDEMA CONTROL. BILAT LE ROM WFL, BILAT LE STRENGTH AT LEAST 3 TO 3+/5, UNABLE TO MANUAL MUSCLE TEST DUE TO DECREASED COGNITION. BED MOBILITY NOT ATTEMPTED THIS VISIT PATIENT AND CG REPORT PATIENT HAS BEEN SLEEPING IN RECLINER. PATIENT COMPLETED SIT-->STAND FROM LOW HEIGHT RECLINER WITH ROLLATOR AND MIN A. PATIENT REQUIRED VERBAL CUES FOR UE AND LE SEQUENCING AND INCREASING COM OVER PABLITO. STATIC STAND = FAIR-. PATIENT AMB 20' WITH ROLLATOR AND MIN A, ASSIST WITH TURNS. PATIENT DEMO BILAT LE STEP LENGHTS WITH REDUCED HIP FLEX WITH SWING PHASE, ADEQUATE FEET CLEARANCE, 0 LOB. PATIENT PRESENTS WITH THE FOLLOWING DEFICITS: SEIZURES, PAIN, DECREASED BILAT LE STRENGTH, RESULTING IN DIFFICULTY WITH TRANSFERS AND AMB. SKILLED [facility] PHYSICAL THERAPY POC 1X4WKS TO ADDRESS DEFICITS, MAX SAFETY AND FUNCTIONAL LEVEL IN HOME ENVIRONMENT WITH THER EXER, ESTABLISH HEP, TRANSFER AND GAIT TRAINING. PATIENT AND CG INFORMED ABOUT PHYSICAL THERAPY POC INCLUDING FREQ, VERBALIZED ACCEPTANCE.] Goal Patient Goal - STAY HEALTHY Goal Provider Goal - A PLAN OF CARE WILL BE ESTABLISHED THAT MEETS PATIENT'S SHELTER NEEDS AND INCLUDES PATIENT GOAL FOR HOME [...] MEDIPLANNER DEVICE BY THE END OF EPISODE. Goal Provider Goal - PHYSICAL THERAPY EVALUATION TO BE COMPLETED WITH RECOMMENDATIONS AND/OR WRITTEN TREATMENT PLAN OF CARE ESTABLISHED FOR THE PHYSICIANS SIGNATURE PATIENT/CAREGIVER VERBALIZES UNDERSTANDING OF THE INITIAL BEST PRACTICE RECOMMENDATIONS. PHYSICIAN TO BE NOTIFIED APPROPRIATE FOR ANY CHANGES OR COMPLICATIONS THROUGHOUT THE CERTIFICATION PERIOD. PATIENT/CAREGIVER WILL PERFORM THERAPEUTIC EXERCISE/S AND DEMONSTRATE PARTICIPATION IN A HOME PROGRAM. PATIENT/CAREGIVER WILL DEMONSTRATE IMPROVED BED MOBILITY TECHNIQUES. PATIENT/CAREGIVER WILL DEMONSTRATE SAFE TRANSFERS USING APPROPRIATE ASSISTIVE DEVICE, BODY MECHANICS AND EQUIPMENT. PATIENT/CAREGIVER WILL DEMONSTRATE IMPROVED GAIT TECHNIQUES TO MINIMIZE RISK OF INJURY. PATIENT/CAREGIVER WILL DEMONSTRATE/VERBALIZE UNDERSTANDING OF RECOMMENDATIONS TO INCREASE SAFETY IN THE HOME AND FALL PREVENTION. INCREASED PAIN OR INEFFECTIVE PAIN CONTROL MEASURES WILL BE IDENTIFIED AND PROMPTLY REPORTED TO THE PHYSICIAN. PATIENT/CAREGIVER WILL DEMONSTRATE EFFECTIVE PAIN MANAGEMENT. PATIENT/CAREGIVER WILL DEMONSTRATE IMPROVED BALANCE AND REDUCE THE RISK OF FALLS AND INJURY. Progress Notes Progress Notes <paragraph>[Visit Date: 2024 by RAUL LONDON LPN]:</paragraph><paragraph>SNV 05/14/25 ABNORMAL VITALS: NA FALLS: NO FALLS REPORTED SINCE LAST SNV OBSERVATION AND ASSESSMENT PROVIDED: ALERT X3 WITH FORGETFUL MOMENTS PT. DAUGHTER PRESENT FOR VISIT AND IS MAIN CAREGIVER. VITALS OBTAINED WNL. NO SIGNS OF DISTRESS. PT S/P SHOWER UPON ARRIVAL. ABULATING WITH DAUGHTER GUIDANCE BACK TO BEDROOM. GAIT NOTED TO BE STEADY DURING THIS SHORT DISTRANCE. NO FALLS REPORTED. SEIZURE ACTIVITY REMAINS CONSISTENT CONCERN FOR PT SAFETY. REVIEWED WITH DAUGHTER SAFETY MEASURES TO PREVENT INJURY TO PT DURING SEIZURES. DAUGHTER RECEPTIVE TO SAFETY REVIEW. LUNGS DIMINISHED ON ROOM AIR BUT CLEAR. SKIN CLEAN, DRY, INTACT. BILATERAL LOWER LIMB EDEMA RESOLVING. LOW SODIUM DIET DISCUSSED DURING VISIT. DAUGHTER DENIES ANY CONCERNS AT THIS TIME. INFORMED HER A NURSE WOULD BE IN CONTACT TO SCHEDULE NEXT VISIT. PT AND DAUGHTER AGREEABLE TO VISIT. EDUCATION: FALL RISK PREVENTION REVIEWED INTERVENTIONS NEEDED AT NEXT VISIT: ASSESSMENT COMMUNICATION WITH MD: JOJO NEXT MD APPOINTMENT: SUNDAY WITH PCP PATIENT AND CAREGIVER INSTRUCTED TO CALL [facility] WITH ANY QUESTIONS OR CONCERNS AND/OR CHANGES IN CONDITION, PATIENT STATES UNDERSTANDING. RAUL LONDON LPN</paragraph> Encounters Start Date/Time End Date/Time Encounter Type Admission Type Attending [facility] Facility Care Department Encounter ID Discharge Date Discharge Status Discharge Condition Discharge Reason Percent Goals Met 2025-04-21 00:00:00 2025-06-19 00:00:00 Outpatient LETI LEVY [facility] [id number] 20.59
== END 2025-05-18 10:50 | disposition home or self-care (01) ==
LOC: HO.LAB 10:49
PROVIDERS: PCP Internal Medicine; Visit Provider Internal Medicine
DX: Z00.00 Encounter for general adult medical examination without abnormal findings (principal); F33.0 Major depressive disorder, recurrent, mild; G40.909 Epilepsy, unspecified, not intractable, without status epilepticus; E78.5 Hyperlipidemia, unspecified; H53.8 Other visual disturbances; N32.81 Overactive bladder; Z12.31 Encounter for screening mammogram for malignant neoplasm of breast; Z79.899 Other long term (current) drug therapy
CPT/HCPCS: 36415; 80053; 80061; 96127

== ENCOUNTER 2025-05-18 13:52 | Outpatient (AMB) | payer MEDICARE, MEDICAID, SELFPAY ==
--- NOTE | 2025-05-18 13:56 | A.OFFVIS_ITS ---
Intake Vital Signs 05/18/25 13:57 Height 5 ft 6 in Weight 176 lb 6 oz BMI 28.5 BP 116/68 Blood Pressure Location Lt brachial Position Sitting Pulse 74 Pulse Source Pulse Oximeter Pulse Oximetry (%) 100 Oxygen Delivery Method Room Air Intake Visit Reasons: AWV Foster Care Case Manager Required: No Accompanied by: Daughter Allergies Iodinated Contrast Media (IV Dye, Iodine Containing) Allergy (Intermediate, Verified 05/18/25 14:47) RED ALL OVER NAUSEA AND LOST RESPIRATIONS Penicillins (PENICILLINS) Allergy (Intermediate, Verified 05/18/25 14:47) Unknown phenytoin (From Dilantin) Allergy (Intermediate, Verified 05/18/25 14:47) gum swelling lamotrigine (From Lamictal) Allergy (Unknown, Verified 05/18/25 14:47) unknown Medication List - Last Reconciled 05/18/25 by Lara Rivas MD acetaminophen (Tylenol Extra Strength) 500 mg PO Q6H PRN [bed rail As directed] cenobamate (Xcopri) 200 mg PO DAILY clobazam 25 mg PO BEDTIME clobazam 5 mg PO DAILY dicyclomine 20 mg PO BID eslicarbazepine (Aptiom) 600 mg PO BEDTIME furosemide (Lasix) 40 mg PO DAILY 30 days haloperidol 5 mg PO BID lacosamide 100 mg PO BID magnesium oxide 400 mg PO BEDTIME pantoprazole (Protonix) 40 mg PO DAILY@0630 90 days phenobarbital 129.6 mg PO BEDTIME sennosides (Senna Laxative) 17.2 mg PO BEDTIME PRN temazepam 15 mg PO BEDTIME PRN [transport wheelchair As directed] HPI HPI Comments History of Present Illness Details Ppp handed to patient and [place] of care reviewed and updated. The patient is a 59-year-old female presenting for an annual wellness exam. Her cholesterol levels are well-controlled, and her liver enzymes, previously mildly elevated, have improved. She is current with her tetanus vaccination, administered less than ten years ago. The patient has a history of seizures, impacting her cognitive function and memory. She is allergic to contrast, penicillin, phenytoin, and lamotrigine. Not able to do mini-mental. Preventative care includes mammogram and Pap smear screenings, with the last Pap smear in 2020 being normal. [facility] Medical History Seizure disorder Closed head injury Intractable generalized seizure disorder Seizure History of fibula fracture Hyperkalemia Hypomagnesemia Urinary incontinence Hyponatremia Fracture of proximal phalanx of finger of left hand Fracture of proximal phalanx of finger of right hand Toxic metabolic encephalopathy Drowsiness Right tibial fracture Right fibular fracture Nasal bone fracture History of tibial fracture Closed rib fracture Fracture of proximal humerus with routine healing Humeral surgical neck fracture Diarrhea Irritable bowel syndrome with diarrhea Delusional disorder Epilepsy Fracture of T12 vertebra Psychosis Recurrent seizures Burn injury IBS (irritable bowel syndrome) Overactive bladder Class 1 obesity due to excess calories with body mass index (BMI) of 30.0 to 30.9 in adult Mild recurrent major depression Gait instability Polyarthralgia Unsteady gait Expressive aphasia Encephalomalacia GERD (gastroesophageal reflux disease) Hypotension Seizures Surgical History H/O colonoscopy History of tumor H/O prior ablation treatment History of skin graft History of tubal ligation Surgical history unknown Family History (Updated 05/18/25 @ 14:56 by Lara Rivas MD) Father Heart problem Dementia Mother Diabetes Low blood pressure Family/Other Substance use disorder Mental health disorder Social History Household Members: Family Household Members Other:: with daughter Housing: House Do you presently have visiting nurse or other home services: Yes Unable to assess alcohol history related to: Unable to respond Alcohol intake: never Comment: 1:1 sitter Patient Tobacco Use Status: Never used Tobacco e-Cigarette/Vaping Use: Never Used Second Hand Smoke Exposure: No Advance Directives Date on File: 01/09/23 service: No Current occupational status: disabled Current occupation: rt handed Sexual orientation: Straight/Heterosexual Gender identity: Female Cognitive needs: Yes (walker) Hearing needs: No Vision needs: Yes (glasses) Questionnaire Medicare Wellness Checkup What gender do you identify with?: female During the past 4 weeks, how much have you been bothered by emotional problems such as feeling anxious, depressed, irritable, sad or downhearted, and blue?: extremely During the past 4 weeks, has your physical & emotional health limited your social activities with family, friends, neighbors, or groups?: extremely During the past 4 weeks, how much bodily pain have you generally had?: severe pain (legs and back and arm ) During the past 4 weeks, was someone available to help you if you needed & wanted help?: yes, as much as I wanted During the past 4 weeks, what was the hardest physical activity you could do for at least 2 minutes?: moderate Can you get to places out of walking distance without help? (For eg., can you travel alone on buses, taxis or drive your car?): No Can you go shopping for groceries or clothes without someone's help?: No Can you prepare your own meals?: No Can you do your housework without help?: No Because of any health problems, do you need the help of another person with your personal care needs such as eating, bathing, dressing or getting around the house?: Yes Can you handle your own money without help?: No During the past 4 weeks, how would you rate your health in general?: fair During the past 4 weeks how have things been going for you?: good & bad parts about equal Are you having difficulties driving your car?: no Do you always fasten your seat belt when you are in a car?: yes, usually During past 4 weeks, have you been bothered by the following: never: Sexual problems?, Trouble eating well?, Teeth or denture problems? and Problems using the telephone?, sometimes: Falling or dizzy when standing up and always: Tiredness or fatigue? Have you fallen 2 or more times in the past year?: Yes Are you afraid of falling?: Yes Are you a smoker?: no During the past 4 weeks, how many drinks of wine, beer, or other alcoholic beverages did you have?: no alcohol at all Do you exercise for about 20 minutes 3 or more times a week?: yes, most of the time Have you been given information to help with the following?: yes: Keeping track of your medications? How often do you have trouble taking medicines the way you have been told to take them?: I always take medicine as prescribed How confident are you that you can control & manage most of your health problems?: not very confident What is your race?: or origin or descent Activity of Daily Living Bathing - sponge bath, tub bath or shower: receives help in bathing more than one body part (or not bathed) Dressing - getting clothes from closets & drawers, including inner/outer garments & fasteners.: receives help getting clothes or getting dressed, or stays undressed Toileting - going to the 'toilet room' for urine/bowel elimination & cleaning self/arranging clothes: receives help going to toilet room, cleaning self or arranging clothes Transfer: moves in & out of bed or chair with help Continence: supervision helps urination/bowel control; catheter use; incontinent Feeding: feeds self without help Total Score: 3 Information obtained from: informant Using telephone: independent Traveling: dependent Shopping: dependent Preparing meals: dependent Housework: dependent Taking medicine: dependent Managing money: dependent PHQ-9 Over the last 2 weeks, how often have you been bothered by any of the following problems? 1. Little interest or pleasure in doing things: nearly every day 2. Feeling down, depressed, or hopeless: nearly every day 3. Trouble falling or staying asleep, or sleeping too much: nearly every day 4. Feeling tired or having little energy: nearly every day 5. Poor appetite or overeating: not at all 6. Feeling bad about yourself - or that you are a failure or have let yourself or your family down: not at all 7. Trouble concentrating on things, such as reading the newspaper or watching television: nearly every day 8. Moving or speaking so slowly that other people could have noticed. Or the opposite - being so fidgety or restless that you have been moving around a lot more than usual: several days 9. Thoughts that you would be better off or of hurting yourself in some way: not at all Total score: 16 Depression Screening Interpretation: Positive Depression Screening Follow-up: Existing condition and Follow-up Visit Requested Depression Screening Done: Yes 80250 - PHQ-9 Billing: Yes Source: Developed by Drs. Yasmany Geronimo, Shazia Gaytan, Igor Park and colleagues, with an educational robin from [employer]. Review of Systems Const All systems reviewed & are unremarkable except as noted in HPI and below Card Denies chest pain at rest, Denies chest pain with activity, Denies edema, Denies irregular heart rhythm, Denies claudication, Denies dyspnea, Denies dyspnea on exertion, Denies orthopnea, Denies paroxysmal nocturnal dyspnea and Denies slow heart rate Resp Denies cough, Denies dyspnea and Denies dyspnea on exertion GI Denies abdominal pain, Denies change in bowel habits, Denies excessive flatus, Denies nausea and Denies vomiting Physical Exam Vital Signs: Last Vital Signs Pulse 74 05/18/25 13:57 BP 116/68 05/18/25 13:57 Pulse Ox 100 05/18/25 13:57 Oxygen Delivery Method Room Air 05/18/25 13:57 BMI result Body Mass Index 28.5 Resp Effort & Inspection: normal respiratory effort Auscultation: clear to auscultation bilaterally Cardio Jugular venous distension: no JVD Rate: regular rate Rhythm: regular rhythm Heart sounds: S1 normal heart sound present and S2 normal heart sound present Extrem General: Yes full ROM Assessment & Plan Assessment & Plan (1) Encounter for Medicare annual wellness exam: Code(s): Z00.00 - Encounter for general adult medical examination without abnormal findings (2) Mild recurrent major depression: Code(s): F33.0 - Major depressive disorder, recurrent, mild (3) Seizure disorder: Code(s): G40.909 - Epilepsy, unspecified, not intractable, without status epilepticus Plan Plan Patient was informed and verbally consented to the use of an ambient scribe for clinic note documentation during this visit. 1. Hyperlipidemia, unspecified E78.5 The patient's cholesterol levels are well-controlled, indicating effective management of hyperlipidemia. 2. Encounter for general adult medical examination without abnormal findings Z00.00 Preventative care measures include being up to date with tetanus vaccination and undergoing regular mammogram and Pap smear screenings. Orders: Orders MM tomosynthesis screening BI Today Z12.31 - Encounter for screening mammogram for malignant neoplasm of breast Referrals Ophthalmology Referral H53.8 - Other visual disturbances Medications: New [wipes] As directed 300 ea 11RF N32.81 - Overactive bladder Quality Reporting (2019) Depression/Bipolar (159/160/161/177) PHQ-9: Total score: 16 Coding Level of Care Code Medicare First (G0438) Diagnoses Encounter for Medicare annual wellness exam Z00.00 Mild recurrent major depression F33.0 Seizure disorder G40.909 CPT Codes Advance Care Planning - Time spent: 1-15 minutes, on File ([id number]) Additional Codes PHQ-9 - 59996 - PHQ-9 Billing: Yes ([id number]) Time Spent (min) 36 Advance Care Planning Advance Care Planning discussion: Completed/Scanned Date of discussion: 05/18/25 Who was present: patient, daughter and me Forms completed: COREY Time spent: 1-15 minutes, on File Actual minutes spent: 5
[2025-05-18 13:57] VITALS: BP 116/68; PULSE 74; O2SAT 100; BMI 28.5
== END 2025-05-18 15:13 | disposition home or self-care (01) ==
LOC: HO.HMCH 13:53
PROVIDERS: PCP Internal Medicine; Visit Provider Internal Medicine
DX: Z00.00 Encounter for general adult medical examination without abnormal findings (principal); F33.0 Major depressive disorder, recurrent, mild; G40.909 Epilepsy, unspecified, not intractable, without status epilepticus

== ENCOUNTER → 2025-05-19 23:59 | Outpatient (BNV) | payer MEDICARE, MEDICAID, SELFPAY | PROVIDERS: PCP Internal Medicine; Visit Provider Internal Medicine | DX: G40.919 Epilepsy, unspecified, intractable, without status epilepticus (principal); D64.9 Anemia, unspecified; R29.6 Repeated falls | CPT/HCPCS: G0180 ==

== ENCOUNTER → 2025-06-22 23:59 | Outpatient (BNV) | payer MEDICARE, MEDICAID, SELFPAY | PROVIDERS: PCP Internal Medicine; Visit Provider Internal Medicine | DX: G40.919 Epilepsy, unspecified, intractable, without status epilepticus (principal); D64.9 Anemia, unspecified; E66.811 Obesity, class 1; Z68.26 Body mass index [BMI] 26.0-26.9, adult | CPT/HCPCS: G0179 ==

== ENCOUNTER 2025-06-24 14:17 | Outpatient (AMB) | payer MEDICARE, MEDICAID, SELFPAY ==
--- NOTE | 2025-06-24 14:19 | A.OFFVIS_ITS ---
Vital Signs 06/24/25 14:27 Height 5 ft 6 in Weight 166 lb 4 oz BMI 26.8 BP 110/68 Blood Pressure Location Rt brachial Position Sitting Pulse 83 Pulse Source Pulse Oximeter Pulse Oximetry (%) 98 Oxygen Delivery Method Room Air Intake Visit Reasons: [id number]-[id number] Intake Note: Seizures Antenna Rigger Required: Yes Antenna Rigger Services: Antenna Rigger Offered & Declined Antenna Rigger Name: Daughter - Hamida to interpret Accompanied by: Daughter Allergies Iodinated Contrast Media (IV Dye, Iodine Containing) Allergy (Intermediate, Verified 06/24/25 14:23) RED ALL OVER NAUSEA AND LOST RESPIRATIONS Penicillins (PENICILLINS) Allergy (Intermediate, Verified 06/24/25 14:23) Unknown phenytoin (From Dilantin) Allergy (Intermediate, Verified 06/24/25 14:23) gum swelling lamotrigine (From Lamictal) Allergy (Unknown, Verified 06/24/25 14:23) unknown Medication List - Last Reconciled 06/24/25 by Jayashree Sharma MD acetaminophen (Tylenol Extra Strength) 500 mg PO Q6H PRN [bed rail As directed] cenobamate (Xcopri) 200 mg PO DAILY clobazam 25 mg PO BEDTIME clobazam 5 mg PO DAILY dicyclomine 20 mg PO BID eslicarbazepine (Aptiom) 600 mg PO BEDTIME furosemide (Lasix) 40 mg PO DAILY 30 days haloperidol 5 mg PO BID lacosamide 100 mg PO BID magnesium oxide 400 mg PO BEDTIME multivitamin 1 tab PO DAILY pantoprazole (Protonix) 40 mg PO DAILY@0630 90 days phenobarbital 129.6 mg PO BEDTIME sennosides (Senna Laxative) 17.2 mg PO BEDTIME PRN [transport wheelchair As directed] [wipes As directed] HPI Comments Details: 59y/o female with epilepsy comes for further management.she is accompanie dby her daughter and health care proxy Hamida Jackson. she was managed by and [facility]. she has been having seizures since age 9. Her seizures include staring episodes and some major generalized tonic clonic seizures. 30 years ago she was found a Brain mass which was resected. 6 years ago she had another brain surgery ? for epilepsy but she did not improve.her cognition and psychiatric issues worsened since the surgery . [facility] suggested another surgery but daughter declined. she was also seen at [facility] - 3 weeks of hospitalizations. Staring episodes are multiple times a day and major gen seizures 1-2 times week. she has PUMP STITCHER and lives with her daughter ( autistic) who goes to her program . Her cognition is worse- confused and does not respond to commands.She sees a psychiatrist for paranoia , anxiety and delusions etc [facility] [place] Medical History Seizure disorder Closed head injury Intractable generalized seizure disorder Seizure History of fibula fracture Hyperkalemia Hypomagnesemia Urinary incontinence Hyponatremia Fracture of proximal phalanx of finger of left hand Fracture of proximal phalanx of finger of right hand Toxic metabolic encephalopathy Drowsiness Right tibial fracture Right fibular fracture Nasal bone fracture History of tibial fracture Closed rib fracture Fracture of proximal humerus with routine healing Humeral surgical neck fracture Diarrhea Irritable bowel syndrome with diarrhea Delusional disorder Epilepsy Fracture of T12 vertebra Psychosis Recurrent seizures Burn injury IBS (irritable bowel syndrome) Overactive bladder Class 1 obesity due to excess calories with body mass index (BMI) of 30.0 to 30.9 in adult Mild recurrent major depression Gait instability Polyarthralgia Unsteady gait Expressive aphasia Encephalomalacia GERD (gastroesophageal reflux disease) Hypotension Seizures Surgical History H/O colonoscopy History of tumor H/O prior ablation treatment History of skin graft History of tubal ligation Surgical history unknown Family History Father Heart problem Dementia Mother Diabetes Low blood pressure Family/Other Substance use disorder Mental health disorder Social History Household Members: Family Household Members Other:: with daughter Housing: House Do you presently have visiting nurse or other home services: Yes Alcohol intake: never Comment: 1:1 sitter Patient Tobacco Use Status: Never used Tobacco e-Cigarette/Vaping Use: Never Used Second Hand Smoke Exposure: No Advance Directives Date on File: 01/09/23 service: No Current occupational status: disabled Current occupation: rt handed Sexual orientation: Straight/Heterosexual Gender identity: Female Cognitive needs: Yes (walker) Hearing needs: No Vision needs: Yes (glasses) Review of Systems Neuro Reports confusion Psych Reports confusion Physical Exam Vital Signs: Last Vital Signs Pulse 83 06/24/25 14:27 BP 110/68 06/24/25 14:27 Pulse Ox 98 06/24/25 14:27 Oxygen Delivery Method Room Air 06/24/25 14:27 BMI result Body Mass Index 26.8 Const General: comfortable, anxious and confusion Nutritional Appearance: average body habitus Orientation/consciousness: oriented to person and confusion Neuro Other: was able to communicate with daughter Limited exam due to patient not cooperating General: oriented to person, tone normal, moves all extremities and confusion Cranial nerves: Yes Bilaterally intact EOM present, Yes Nystagmus not present and Yes Normal facial strength present Cognition (Neuro): abnormal cognition Gait exam (Neuro): Antalgic gait present Motor exam (neuro): Normal motor muscle tone present throughout Assessment & Plan Assessment & Plan (1) Seizure disorder: Comment: poorly controlled Code(s): G40.909 - Epilepsy, unspecified, not intractable, without status epilepticus Category: Medical (2) Cognitive impairment: Comment: [facility] epilepsy surgery Code(s): R41.89 - Other symptoms and signs involving cognitive functions and awareness Category: Medical Plan Reports from [facility] and [facility] and [facility] Supportive care . Patients daughter does not want aggressive treatment as she worried about worsening of her cognition and psychiatric issues . Consider increasing PUMP STITCHER hrs Medications: New cenobamate (Xcopri) 200 mg PO DAILY 30 tabs 5RF Coding Level of Care Code New Pt Level 4 (04963) Diagnoses Seizure disorder G40.909 Cognitive impairment R41.89
[2025-06-24 14:27] VITALS: BP 110/68; PULSE 83; O2SAT 98; BMI 26.8
--- OUTSIDE RECORDS SUMMARY | 2025-06-24 15:30 | XMS_ITS | Encounter Summary ---
Author Organization [facility] Address [address] [place] [address] Drive [address] [place] [address] Phone Care Team Providers Care Head Track Coach Name Role Phone Paul Grady MD Primary Care Provider [phone] Jacky Zelaya MD Unavailable [phone] Unknown, Unknown Primary Care Provider Lara Su MD Primary Care Provid er Encounter Details Date Type Department Care Team (Late st Contact Info) Description 04/26/2018 Procedure Pass [facility] MR Imaging, Resendiz [address] [place] [address] Social History Tobacco Use Types Packs/Day Years [...] on filedocumented in this encounter Care Teams Head Track Coach Relationship Specialty Start Date End Date Paul Grady MD [address] [place] [address] [place] [address] PCP - General Internal Medicine 03/07/17 04/23/21 Unknown, [place], PCP - General 04/24/21 07/14/21 Lara Mercado MD [address] [place] [address] PCP - General Internal Medicine 07/15/21 Jacky Zelaya MD [address] [place] [address] [place] [address] JOSE [email or web address] Medical Student Neurology 11/07/19 09/06/20 documented as of this encounter Additional Source Comments The information contained in this document represents components of the legal health record. It is not the complete legal health record.[facility]
--- OUTSIDE RECORDS SUMMARY | 2025-06-24 15:30 | XMS_ITS | Encounter Summary ---
Author Organization [facility] Address [address] [place] [address] Phone Care Team Providers Care Social Sciences Chair Name Role Phone Paul Grady MD Primary Care Provider [phone] Jacky Zelaya MD Unavailable [phone] Unknown, Unknown Primary Care Provider Lara Su MD Primary Care Provid er Encounter Details Date Type Department Care Team (Late st Contact Info) Description 03/25/2018 Procedure Pass [facility] Periop [address] [place] [address] Social History Tobacco Use Types Packs/Day Years [...] on filedocumented in this encounter Care Teams Social Sciences Chair Relationship Specialty Start Date End Date Paul Grady MD [address] [place] [address] [place] [address] PCP - General Internal Medicine 03/07/17 04/23/21 Unknown, [place], PCP - General 04/24/21 07/14/21 Lara Mercado MD [address] [place] [address] PCP - General Internal Medicine 07/15/21 Jacky Zelaya MD [address] [place] [address] [place] [id number] JOSE [email or web address] Medical Student Neurology 11/07/19 09/06/20 documented as of this encounter Additional Source Comments The information contained in this document represents components of the legal health record. It is not the complete legal health record.[facility]
--- OUTSIDE RECORDS SUMMARY | 2025-06-24 15:30 | XMS_ITS | Encounter Summary ---
Author Organization [facility] Address [address] [place] [address] [place] [address] Phone Care Team Providers Care Estimator Jewelry Name Role Phone Paul Grady MD Primary Care Provider [phone] Jacky Zelaya MD Unavailable [phone] Unknown, Unknown Primary Care Provider Lara Su MD Primary Care Provid er Encounter Details Date Type Department Care Team (Late st Contact Info) Description 05/10/2020 Telephone [facility], Department of Neurology [address] [place] [address] Alex Cordero MD, PhD [address] [place] [id number] [email or web address] Social History Tobacco Use Types Packs/Day Years [...] Maurer PA * Patient has serious difficulty walking [...] Diagnoses Not on filedocumented in this encounter Additional Health Concerns Assessment Noted Time PHQ-2 Depression Total Score: 6 11/20/19 19 12:26 PM EST documented as of this encounter Care Teams Estimator Jewelry Relationship Specialty Start Date End Date Paul Grady MD [address] [place] [address] [place] [address] PCP - General Internal Medicine 03/07/17 04/23/21 Unknown, [place], MD PCP - General 04/24/21 07/14/21 Lara Mercado MD [address] [place] [address] PCP - General Internal Medicine 07/15/21 Jacky Zelaya MD [address] [place] [address] [place] [id number] JOSE [email or web address] Medical Student Neurology 11/07/19 09/06/20 documented as of this encounter Additional Source Comments The information contained in this document represents components of the legal health record. It is not the complete legal health record.[facility]
--- OUTSIDE RECORDS SUMMARY | 2025-06-24 15:30 | XMS_ITS | Encounter Summary ---
Author Organization [facility] Address [address] [place] [address] [address] [place] [address] Care Team Providers Care Tube Test Technician Name Role Phone Unavailable Primary Care [...]
--- OUTSIDE RECORDS SUMMARY | 2025-06-24 15:30 | XMS_ITS | Clinical Summary ---
Author Organization [facility] Address [address] [facility] [address] [place] [address] Phone Care Team Providers Care Plastic Tile Layer Name Role Phone Lara Mercado MD Primary Care Provid er Allergies Active Allergy Reactions Criticality Noted Date Comments Dilantin (Phenytoin Sodium Extended) Swelling 01/10/2017 Iodinated Contrast Media Rash Low 01/10/2017 Penicillins Nausea and/or Vomiting Low 01/10/2017 Medications * This document contains information received from the source organization and may not represent a complete record from that organization. acetaminophen (TYLENOL) 500 MG tablet Take 2 tablets (1,000 mg total) by mouth every 6 (six) hours as needed. 30 tablet 3 8 Active therapeutic multivitamin tablet Take 1 tablet by mouth daily. Active pantoprazole (PROTONIX) 40 MG tablet Take 40 mg by mouth daily. Active dicyclomine (BENTYL) 20 mg tablet Take 1 tablet (20 mg total) by mouth 3 (three) times a day. 1 Active sucralfate (CARAFATE) 1 gram tablet Take 2 tablets by mouth daily. 1 Active MAGNESIUM OXIDE ORAL Take 400 mg by mouth daily. Active cranberry fruit extract (CRANBERRY EXTRACT) 250 mg Cap Take 250 mg by mouth daily. Active haloperidoL (HALDOL) 5 MG tablet Take 1 tablet (5 mg total) by mouth 2 (two) times a day. 3 Active cenobamate (XCOPRI) 200 mg tablet Take 1 tablet (200 mg total) by mouth every morning. 30 tablet 5 5 10/14/19 26 Active cloBAZam (ONFI) 10 mg Tab Take 1 tablet (10 mg total) by mouth 2 (two) times a day. 60 tablet 5 5 10/14/19 26 Active eslicarbazepine (APTIOM) 600 mg tablet Take 1 tablet (600 mg total) by mouth nightly at bedtime. at bedtime. 30 tablet 11 5 Active lacosamide (VIMPAT) 100 mg Tab Take 1 tablet (100 mg total) by mouth 2 (two) times a day. 60 tablet 5 5 10/14/19 26 Active PHENobarbitaL 64.8 MG tablet Take 2 tablets (129.6 mg total) by mouth nightly at bedtime. 180 tablet 1 5 10/14/19 26 Active Active Problems Problem Noted Date Diagnosed Date Altered mental status 04/28/2021 Essential hypertension 03/26/2018 Epilepsy, focal 03/25/2018 Seizure 03/07/2017 Assessment & Plan (09/05/2019 11:10 AM EST): 09/05- being transferred to EBB service . Pt refused having leads put back on last ashly. Wants to be able to shower daily but EEG leads make that impossible. Present meds: Briviact 100mg BId then cut to 50mg BID x 1week, then 50mg daily x 1 week then off., onfi 20 bid, aptiom 600mg bid, vimpat 100mg bid ( may need prior auth) phenobarb 129.6mg qd Was started on vimpat this inpt. Will have to start prior auth process. -Call EPILEPSY FELLOW( beeper [phone]) for any GTC or clustering of CPS. -Lorazepam 1-2mg IV PRN GTC lasting > 2 minutes. May be repeated q5 minutes x 2 doses. Call Epilepsy fellow ( beeper [phone]) for further instructions after 1 dose. - if needed: Keppra 1,000 mg IV PRN GTC > 5 minutes or 2 seizures within a 15 minute period. Call Epilepsy fellow ( beeper [phone]) for approval PRIOR to administering. Assessment & Plan (02/15/2019 11:31 AM EDT): 02/10-Remains on home meds overnight: eslicarbazepine 600mg bid Keppra 2000mg bid Onfi 02/11- Pt had a documented seizure which started in bathroom and was given ativan 1mg. she continued to seize from L throughout the night in non convulsive status. The plan is to change meds and possibly enroll in a clinical trial if this continues to stop the seizing 02/12- yesterday continues with runs of seizure activity. Started on phenobarb 32.4 last night and cut onfi to 10mg in pm and this am. Now will cut onf to 5mg bid and increase phenobarb to 32.4 bid 02/13- pt had several push button events which were typical of what she has been having at home. They were for visual changes, and a feeling she was going to have a seizures. They were sz. Stopping onfi, changing Phenobarb to 64 mg qpm, adding briviat 100mg BIDand stopping keppra Pt tolerating Phenobarb well. 02/14- run of sz later in afternoon yesterday. Given phenobarb dose a little earlier. Hard to tell origin of sz. Coming from several places. 02/15- clustering of seizures during the evening of 02/14, so will not discharge 02/15 PLAN: Increasing eslicarbazepine to 600/900 Added onfi 20 BID Increased phenobarb from 67 to 97 Will present to epilepsy surgery conference in the near future -Call EPILEPSY FELLOW( beeper [phone]) for any GTC or clustering of CPS. -Lorazepam 1-2mg IV PRN GTC lasting > 2 minutes. May be repeated q5 minutes x 2 doses. Call Epilepsy fellow ( beeper [phone]) for further instructions after 1 dose. - if needed: Keppra 1,000 mg IV PRN GTC > 5 minutes or 2 seizures within a 15 minute period. Call Epilepsy fellow ( beeper [phone]) for approval PRIOR to administering. Assessment & Plan (03/16/2017 10:30 AM EDT): 03/07: Held PHB, Ativan, didn t restart clonazepam; stopped tramadol 03/08: Held Fycompa, held evening dose of depakote . received 1500mg 03/08 in total. 03/09: yesterday - 3:30pm small aura that went away within a minute, button pressed - 8pm had RUE rhythmic shaking and L gaze preference, then hold body shaking-->received ativan 1mg x2 with improvement but no resolution, EEG very active with LPDs according to EEG and so gave another 2 of ativan and loaded 1g of keppra and increased home keppra to 1500mg BID--> EEG improved 03/13: continues to have multiple auras. Added ativan during the day. Increased Keppra to 2 gm BID 03/14: continues to have multiple episodes of blurry vision. Carbamazepine 500 AM, 400 afternoon, 500 PM 03/15: blurry vision continues. Na 134., pt not pushing button but eeg continues to be active especially during the afternoon 03/16- yesterday afternoon pt c/o LLQ abd pain- CBC ok, U/A ok. Nl BS, Ordered abd xray- pt able to sit up and have lunch despite reporting 10/10 pain.no n/v. Xr showed focal loops of sm bowel on R side, not dilated. Rads recommended CT abd/pelvis- made her NO P MN/IV fluids . PT has allergy to contrast so will have to have CT without contrast MEDS: continue carbamazepine 500/400/ 500 ; clobazam 20 BID,levetiracetam 2000 BID - ativan 2 mg PO at lunch x 2 weeks then taper as OP 0.5 mg every 2 weeks. - will discuss with epilepsy fellow further medication adjustments as EEG is evaluated -contact care coordination arranged [facility] for med review, and to draw bloods for carbamazpine level and electolytes sunday -Call EPILEPSY FELLOW( beeper [phone]) for any GTC or clustering of CPS. -Lorazepam 1-2mg IV PRN GTC lasting > 2 minutes. May be repeated q5 minutes x 2 doses. Call Epilepsy fellow ( beeper [phone]) for further instructions after 1 dose. - if needed: Keppra 1,000 mg IV PRN GTC > 5 minutes or 2 seizures within a 15 minute period. Call Epilepsy fellow ( beeper [phone]) for approval PRIOR to administering. Encounters Date Type Department Care Team Description 04/20/2025 1:30 PM EDT Telemedicine [facility], Department of Neurology [address] [place] [address] PunnoCandelaria taylor PA-C Epilepsy, focal (Primary Dx) 04/17/2025 Orders Only [facility], Department of Neurology [address] [place] [address] Alex Cordero MD, PhD 04/17/2025 Telephone [facility], Department of Neurology [address] [place] [address] Alex Cordero MD, PhD script and medlist request 04/15/2025 Telephone [facility] Department of Neurosurgery [address] [place] [address] Tashia Duke 04/14/2025 10:00 AM EDT Telemedicine [facility], Department of Neurology [address] [place] [address] Alex Cordero MD, PhD Epilepsy, focal (Primary Dx) 04/09/2025 Telephone [facility], Department of Neurology [address] [place] [address] Alex Cordero MD, PhD fmla from Last 3 Months Family History Medical History Relation Comments Heart disease Father Hypertension Father Diabetes Mother Hypertension Mother Anesthesia problems Neg Hx Relation Status Comments Father Mother Social History Tobacco Use Types Packs/Day Years Used Date Smoking Tobacco: Never Smokeless Tobacco: Never Alcohol Use Standard Drinks/Week Comments No 0 (1 standard drink = 0.6 oz pur e alcohol) Education Answer Date Recorded Are you interested in more education? Not on marquita e 01/19/2023 Are you concerned about learning? Not on file 01/19/2023 No 01/19/2023 No 01/19/2023 Digital Access Answer Date Recorded No 02/19/2023 No 02/19/2023 No 02/19/2023 Reliable internet access at home? Not on file 02/19/2023 Device with a working camera? Not on file Comments No Sex and Gender Information Value Date Recorded Sex Assigned at Female 03/20/2018 2:09 PM EDT Legal Sex Female 11:22 AM EST Gender Identity Female 03/20/2018 2:09 PM EDT Sexual Orientation Straight 03/20/2018 2: 09 PM EDT Last Filed Vital Signs Vital Sign Reading Time Taken Comments Blood Pressure 107/77 07/14/2022 11:06 AM EDT Pulse 77 07/14/2022 11:06 AM EDT Temperature 36.8 C (98.3 F) 07/14/2022 11:06 AM EDT Respiratory Rate 16 07/14/2022 11:06 AM EDT Oxygen Saturation 98% 07/14/2022 11:06 AM EDT Inhaled Oxygen Concentration - - Weight 87.2 kg (192 lb 4.8 oz) 07/12/2021 1:57 P M EDT Height 172.7 cm (5' 7.99 ) 07/14/2022 11:06 AM E DT Body Mass Index 29.24 07/12/2021 1:57 PM EDT Plan of Treatment Health Maintenance Due Date Last Done Comments LIPID PANEL 1965 HEPATITIS C SCREENING 12/29/1985 HIV ONE-TIME SCREENING (18-65 YEARS) 12/29/1985 PAP SMEAR 12/29/1988 MAMMOGRAM 2007 COLOGUARD 12/29/2012 COLONOSCOPY 12/29/2012 COLORECTAL CANCER SCREENING 12/29/2012 FIT TEST 12/29/2012 FOBT 12/29/2012 SIGMOIDOSCOPY 12/29/2012 VIRTUAL COLONOSCOPY 12/29/2012 PNEUMOCOCCAL VACCINES (50+ years) (1 of 1 - PCV) 12/29/2017 ZOSTER VACCINES (1 of 2) 12/29/2017 DEPRESSION SCREENING 02/16/2021 02/17/2020, 02/17/20 20 BLOOD PRESSURE 01/12/2023 07/14/2022 INFLUENZA VACCINE (#1) 2025 06/28/2023 COVID-19 VACCINE (3 - season) 2025 12/28/2020, 12/07/2020 Adult Td,Tdap Booster 11/01/2031 11/01/2021 , 09/28/2020, 03/08/2020, Additional history exists SMOKING STATUS SCREENING (Once After 26 Yrs) Completed 07/14/2022 HEPATITIS A VACCINES Aged Out No long er eligible based on patient's age to complete this topic HIB VACCINES Aged Out No longer eligi ble based on patient's age to complete this topic MENINGOCOCCAL VACCINES (ACWY) Aged Out No longer eligible based on patient's age to complete this topic MENINGOCOCCAL VACCINES (B) Aged Out N o longer eligible based on patient's age to complete this topic Medical Devices Implanted Type Area Compensation Intern Device Identifier Shelf Expiration Date Model / Serial / Lot Plate Straight Ti Matrixneuro 2 Holes/12mm - [id number] Implanted:Qty: 2 on 03/25/2018 by Oscar Mcfadden MD at [facility] Left: Cranial SYNTHES .062 / / Cover Inessa Hole Ti Matrix Neuro 17mm - [id number] Implanted:Qty: 2 on 03/25/2018 by Oscar Mcfadden MD at [facility] Left: Cranial SYNTHES .023 / / Graft Dural 2in 2in Collagen Duragen Plus Ca/1ea - Sna Implanted:Qty: 1 on 03/25/2018 by Oscar Mcfadden MD at [facility] STANDARD Left: Cranial The Clearing FRACISCO 08/23/2020 [id number] / NA / [id number] Screw Bone 1.5x4mm Ti Self Drilling Matrixneuro Non Strl Disp Ea - [id number] Implanted:Qty: 14 on 03/25/2018 by Oscar Mcfadden MD at [facility] STANDARD Left: Cranial SYNTHES .104. 01 / / Vns Stimulator Stimulator DEMIPU LSE DUO 104 / / Description:Demipulse Duo 10 4 needs to be interegated pre and post MRI transmit/receive coil only Ti Matrixneuro Ulp 12mm Straight Plate - [id number] Implanted:Qty: 1 on 03/25/2018 by Oscar Mcfadden MD at [facility] Left: Cranial SYNTHES 502.062 / / Insurance [facility] MEDICARE PART A & B [place] & B [facility] MEDICARE PART A & B [place] & B [facility] MEDICARE PART A & B Advance Directives For more information, please contact: [phone] (9AM - 5PM [facility], Sunday-Sunday) Documents on File Type Date Recorded Patient Boil Off Worker Expl anation Healthcare Proxy 03/26/2018 10:11 AM Signed on 03/25/2018 * Full Code (Latest Code Status on File) Date Activated Date Inactivated Comments 05/06/2021 5:44 PM Question Answer Comments Code Status Confirmed With: Family * Full Code (Presumed) Date Activated Date Inactivated Comments 09/02/2019 2:16 PM 09/06/2019 5:38 PM * Full Code (Presumed) Date Activated Date Inactivated Comments 02/10/2019 10:56 AM 02/18/2019 3:56 PM * Full Code (Presumed) Date Activated Date Inactivated Comments 03/25/2018 2:10 PM 03/30/2018 6:08 PM * Full Code (Confirmed) Date Activated Date Inactivated Comments 03/07/2017 3:44 PM 03/16/2017 7:25 PM Question Answer Comments Code Discussion Comments: pt Healthcare Agents on File Name Relationship Healthcare Agent Chantalehi channing Communication Hamida Jackson Daughter .Primary Health Care Agent (Proxy form on file) Care Teams Plastic Tile Layer Relationship Specialty Start Date End Date Lara Mercado MD [address] [place] [address] PCP - General Internal Medicine 07/15/21 Additional Source Comments The information contained in this document represents components of the legal health record. It is not the complete legal health record.[facility]
--- OUTSIDE RECORDS SUMMARY | 2025-06-24 15:31 | XMS_ITS | Encounter Summary ---
Author Organization [facility] Address [address] [place] [address] Phone Care Team Providers Care Machine Cell Tuber Name Role Phone Unknown, Unknown Primary Care Provider Lara Su MD Primary Care Provid er Encounter Details Date Type Department Care Team (Late st Contact Info) Description 05/04/2021 Procedure Pass [facility] [address] [place] [id number] Social History Tobacco Use Types Packs/Day Years [...] documented as of this encounter Care Teams Machine Cell Tuber Relationship Specialty Start Date End Date Unknown, Unknown, MD PCP - General 04/24/21 07/14/21 Lara Mercado MD [address] [place] [address] PCP - General Internal Medicine 07/15/21 documented as of this encounter Additional Source Comments The information contained in this document represents components of the legal health record. It is not the complete legal health record.[facility]
--- OUTSIDE RECORDS SUMMARY | 2025-06-24 15:31 | XMS_ITS | Encounter Summary ---
Author Organization [facility] Address [address] [place] [address] [place] [phone] Phone Care Team Providers Care Demand Generator Manager Name Role Phone Unknown, Unknown Primary Care Provider Paul Malone MD Primary Care Provider [phone] Jacky Zelaya MD Unavailable [phone] Unknown, Unknown Primary Care Provider Lara Su MD Primary Care Provid er Encounter Details Date Type Department Care Team (Late st Contact Info) Description 01/10/2017 Procedure Pass [facility] Imaging, [facility] [address] [place] [address] Social History Tobacco Use Types Packs/Day Years Used Date Smoking Tobacco: Never Smokeless Tobacco: Never Comments Unknown Sex and Gender Information Value Date Recorded Sex Assigned at Female 03/20/2018 2:09 PM EDT Legal Sex Female 11:22 AM EST Gender Identity Female 03/20/2018 2:09 PM EDT Sexual Orientation Straight 03/20/2018 2: 09 PM EDT documented as of this encounter Plan of Treatment Not on file documented as of this encounter Visit Diagnoses Not on filedocumented in this encounter Care Teams Demand Generator Manager Relationship Specialty Start Date End Date Unknown, Unknown, MD PCP - General 11/22/16 03/06/17 Paul Grady MD [address] [place] [address] [place] [address] PCP - General Internal Medicine 03/07/17 04/23/21 Unknown, Unknown, MD PCP - General 04/24/21 07/14/21 Lara Mercado MD [address] [place] [address] PCP - General Internal Medicine 07/15/21 Jacky Zelaya MD [address] [place] [address] [facility] [place] [address] JOSE [email or web address] Medical Student Neurology 11/07/19 09/06/20 documented as of this encounter Additional Source Comments The information contained in this document represents components of the legal health record. It is not the complete legal health record.[facility]
--- OUTSIDE RECORDS SUMMARY | 2025-06-24 15:31 | XMS_ITS | Encounter Summary ---
Author Organization [facility] Address [address] [place] [address] [place] [address] Phone Care Team Providers Care Public Policy Manager Name Role Phone Paul Grady MD Primary Care Provider [phone] Jacky Zelaya MD Unavailable [phone] Unknown, Unknown Primary Care Provider Lara Su MD Primary Care Provid er Encounter Details Date Type Department Care Team (Late st Contact Info) Description 03/15/2017 Procedure Pass [facility] [address] [place] [address] Social History Tobacco Use Types Packs/Day Years [...] on filedocumented in this encounter Care Teams Public Policy Manager Relationship Specialty Start Date End Date Paul Grady MD [address] [place] [address] [place] [address] PCP - General Internal Medicine 03/07/17 04/23/21 Unknown, Unknown, PCP - General 04/24/21 07/14/21 Lara Mercado MD [address] [place] [address] PCP - General Internal Medicine 07/15/21 Jacky Zelaya MD [address] [place] [address] [place] [address] JOSE [email or web address] Medical Student Neurology 11/07/19 09/06/20 documented as of this encounter Additional Source Comments The information contained in this document represents components of the legal health record. It is not the complete legal health record.[facility]
--- OUTSIDE RECORDS SUMMARY | 2025-06-24 15:31 | XMS_ITS | Clinical Summary ---
Author Organization [facility] it Address [address] [place] [address] Care Team Providers Care Plate Finisher Name Role Phone Unavailable Primary Care Provider [...] Last Done Comments Breast Cancer Screening 1965 Colorectal Cancer Screening: Colonoscopy 1965 DTaP,Tdap,and Td Vaccines (1 - Tdap) 12/29/1986 Hepatitis B Vaccines (1 of 3 - 19+ 3-dose series) 12/29/1986 Cervical Cancer Screening: P ap Smear 12/29/1988 Pneumococcal Vaccine: 50+ Ye ars (1 of 1 - PCV) 12/29/2017 Zoster Vaccines (1 of 2) 12/29/2017 HIV Screening 08/27/2022 Hepatitis C Screening 08/27/2022 Social Influencers of Health Screening 08/27/2022 Depression Screening 09/24/2024 COVID-19 Vaccine (1 - 2023-2 5 season) 2025 Influenza Vaccine (#1) 2025 RSV Immunization Adult Patie nts (1 - 1-dose 75+ series) 12/29/2042 HIB [...]
--- OUTSIDE RECORDS SUMMARY | 2025-06-24 15:31 | XMS_ITS | Encounter Summary ---
Author Organization [facility] Address [address] [place] [address] [place] [address] Phone Care Team Providers Care Textile Examiner Name Role Phone Paul Grady MD Primary Care Provider [phone] Jacky Zelaya MD Unavailable Unknown, Unknown Primary Care Provider Lara Su MD Primary Care Provid er Encounter Details Date Type Department Care Team (Latest Contact Info) Description 03/23/2017 Transcribe Orders [facility] Neurology EEG Lab [address] [place] [id number] [email or web address] Unclassified epileptic seizures (Primary Dx) Social History Tobacco Use Types Packs/Day Years [...] of Assessment Author No 03/16/2017 10:51 AM EDTashia Dee PA * Patient has serious difficulty dressing or bathing (5yr old or older) Answer Date of Assessment Author No 03/16/2017 10:51 AM Tashia Maurer PA * Patient has serious difficulty doing errands alone such as visiting a doctor???s office or shopping, due to physical, mental, or emotional condition (15 years old or older) Answer Date of Assessment Author No 03/16/2017 10:51 AM EDTashia Dee PA documented as of this encounter Mental Status * Patient has serious difficulty concentrating, remembering, or making decisions due to physical, mental, or emotional condition Answer Entry Date Author No 03/16/2017 10:51 AM Tashia Maurer PA documented in this encounter Plan of Treatment Not on file documented as of this encounter Results * EA 24 HR EPILEPSY MONITOR (25122) (03/23/2017 2:36 PM EDT) Anatomical Region Laterality Modality EEG Impressions 05/01/2017 9:33 AM EDT This 6 continuous churn buttermaker monitoring EEG, part 2 of a multi-part study, captures multiple electroclinical and electrographic seizures. With the clinical correlate is present, the semiology is typical for the patient's events, blurry vision, impaired awareness and currently speech arrest. Electrographically, there are ictal runs usually begin with paroxysmal fast activity, at times lower voltage, but other times medium voltage/polyspike appearance, followed either by rhythmic theta or by definite spike and wave discharges, either as LPDs or evolving in frequency to continuous spike and wave discharges of more than 3 Hz. The interictal record is otherwise abnormal because of: 1. abundant burst and runs of spike and wave discharges consistent with brief ictal rhythmic discharges (BiRDs), 2. frequent bursts of paroxysmal fast activity/poly-spikes, 3 frequent slowing in the left fronto-central region, superimposed to the breach rhythm in the same area. These findings are consistent with ictal and interictal manifestations of a focal epilepsy arising from the left hemisphere, likely from left centro-parietal region with variable spread to temporal and frontal regions. There are no prior EEG for comparison. Part 1 of this study, reported separately, revealed similar findings. I, Dr. Rock, have reviewed this study and agree with the interpretation of this study by Dr. Almanza, the epilepsy fellow, as documented above. Narrative 05/01/2017 9:33 AM EDT [facility] Epilepsy Monitoring Unit Report [facility] Epilepsy Unit Patient's name: Nanci Dee Patient's MRN??: [id number] ?Patient : ??1965 Patient gender: ??female Dates of the study: 03/07/2017 - 03/16/2017 HISTORY: 51 y.o. 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 This admission is for spell characterization and medication adjustment. Pre-admission anti-epileptic drugs (AEDs): Valproic acid VPA 500 mg five times daily, levetiracetam LEV 1000 mg bid, carbamazepine CBZ 400 mg tid, Phenobarbital 60 mg PO bid, Fycompa 8 mg PO qd, Lorazepam 1 mg PO BID TECHNICAL SUMMARY: This is a prolonged video-EEG recording with standard 10-20 and anterior temporal electrodes. Data are recorded on an [employer] machine. Technologists monitor the recording for clinical events with the help of a computer program. DETAILS: PART 2 (Days 5-10) START: 03/11/2017, 9:00 END: 03/16/2017, 9:55 Day 5 (03/11/2017 - 03/12/2017) Start time: 09:00 AEDs: LEV 1500 mg bid, CBZ 400 mg tid, CLB 15 mg bid The waking background shows fair to good organization, consisting of poorly sustained 20-30 V, 9 Hz posterior background. Higher amplitudes, faster frequencies and sharper contours over the left hemisphere,accentuated over left frontocentral areas, likely represent breach rhythm in the setting of known skull defect. There is excessive beta activity, more prominent over the left frontocentral region (F3-C3, Cz) in the setting of a known skull defect. There is intermittent frequent theta>delta slowing in the L frontotemporal region, superimposed to the breach rhythm. There are occasional sharp/flypa-doq-ndfx discharges over the left centroparietal, frequently with a broad field beyond the breach area. Additionally, there are occasional to frequent burst and runs of lateralized periodic ykqmr-biv-iwoh discharges [LPDs] with same distribution that, at times, exceed 3Hz in frequency and appear to evolve in frequency, consistent with definition of brief potentially ictal rhythmic discharges (BiRDs) and electrographic seizures (when longer than 10 seconds, see 2:37:01). There is occasional theta slowing over the right hemisphere as well. Intermittent drowsiness is characterized by attenuation of the background, slow roving eye movements and bilateral more pronounced slowing in the theta and delta range with left predominance, with bursts of bilateral, L>R theta with sharp features. Stage N2 sleep is characterized by pronounced and spiky vertex sharp waves and pronounced sleep spindles that at times appear rhythmic and may appear epileptiform, but identifiable from interictal discharges (though meeting criteria for dyshorrmia). There is one electroclinical seizure associated with push button at 16:44:17. Clinically this is consistent with a focal seizure with impaired awareness. Although the patient is able to talk, reporting getting that feeling and her typical blurry vision, remaining oriented and following commands, she is unable to remember the 3 words she is given at the time of the assessment. Electrographically, there are 2 seconds of beta activity detected in the left centro-parietal region [max P3], followed by ~5 seconds of 4 Hz rhythmic theta. Single lead EKG shows an apparent sinus rhythm of ~60-90 beats per minute. Day 6 (03/12 - 03/13) Start time: 07:00 End time: 06:15 AEDs: LEV 1500 mg bid, CBZ 400 mg tid, CLB 20 mg bid, CLZ 1mg x2 There is no change in the EEG background, sleep architecture or EKG tracing. Previously described interictal and abnormalities are again noticed. There are 16 pushbutton events during this epoch, all of the marking electroclinical seizures. Additionally electrographic seizures are also seen. Clinically, these events are typical for the patient's seizures, with associated per blurry vision, some with impaired awareness and some with speech arrest. Electrographically, some of these seizures have a more subtle signature, as the seizure described during day 5 above. Others are more prolonged, with evolution in space and frequency: with several seconds of paroxysmal fast activity, followed by spike and wave LPDs, as reflected in the image below. Day 7 (03/13 - 03/14) Start time: 7:59 AEDs: LEV 1500 mg bid + 1000 mg x1 IV, CBZ 400 mg tid + 200 mg x1, CLB 20 mg bid, CLZ 1mg x2 There is no change in the EEG background, sleep architecture or EKG tracing. Previously described interictal abnormalities are again noticed. There are 8 pushbutton events during this epoch, all of the marking electroclinical seizures. Additionally electrographic ictal runs are also seen. Overall, there is a decrease in the frequency and length of the ictal runs for this day 7 compared to prior day 6. Clinically, there are again consistent with the patient's typical events. Electrographically, there is the same variety for the seizures described on prior day 6. Day 8 (03/14 - 03/15) Start time: 6:51 AEDs: LEV 2000 mg bid, CBZ 500/400/500 mg daily, CLB 20 mg bid, CLZ 1mg x2 There is no change in the EEG background, sleep architecture or EKG tracing. Previously described interictal abnormalities are again noticed. There are 10 pushbutton events during this epoch, all of the marking electroclinical seizures. Additionally electrographic ictal runs are also seen. Overall, there is a similar frequency and length of the ictal runs for this day 8 compared to prior day 7. Clinically, there are again consistent with the patient's typical events. Electrographically, there is the same variety for the seizures described on prior day 6, although there is increasing artifact partially obscuring the record for this day. Day 9 (03/15 - 03/16) Start time: 6:26 End time: AEDs: LEV 2000 mg bid, CBZ 500/400/500 mg daily, CLB 20 mg bid, CLZ 2 mg daily There is no change in the EEG background, sleep architecture or EKG tracing. Previously described interictal abnormalities are again noticed. There are only 6 pushbutton events during this epoch, all of the marking electroclinical seizures. Additionally electrographic ictal runs are also seen. Overall, there is a decrease in the frequency and length of the ictal runs for this day 9 compared to prior day 8. Clinically, there are again consistent with the patient's typical events. Electrographically, there is the same variety for the seizures described on prior day 6. Day 10 (03/16 - 03/16) Start time: 6:26 End time: 9:55 AEDs: LEV 2000 mg bid, CBZ 500/400/500 mg daily, CLB 20 mg bid, CLZ 2 mg daily There is no change in the EEG background, sleep architecture or EKG tracing. Previously described interictal abnormalities are again noticed. There is further reduction of the ictal runs detected. us Tashia DORANTES NEUROLOGY ORDERABLES Final R esult documented in this encounter Visit Diagnoses Diagnosis Unclassified epileptic seizures Unspecified epilepsy without mention of intractable epilepsy Unclassified epileptic seizures- Primary Unspecified epilepsy without mention of intractable epilepsy documented in this encounter Care Teams Textile Examiner Relationship Specialty Start Date End Date Paul Grady MD [address] [place] [address] [place] [address] PCP - General Internal Medicine 03/07/17 04/23/21 Unknown, Unknown, MD PCP - General 04/24/21 07/14/21 Lara Mercado MD [address] [place] [address] PCP - General Internal Medicine 07/15/21 Jacky Zelaya MD [address] [place] [address] [place] [address] [email or web address] Medical Student Neurology 11/07/19 09/06/20 documented as of this encounter Additional Source Comments The information contained in this document represents components of the legal health record. It is not the complete legal health record.[facility]
--- OUTSIDE RECORDS SUMMARY | 2025-06-24 15:31 | XMS_ITS | Clinical Summary ---
Author Organization [employer] Address [address] [place] [address] [address] [place] [address] Care Team Providers Care Registry Rn Name Role Phone Unavailable Primary Care Provider [...] Panel 1965 SDOH Screening 1965 Sigmoidoscopy 1965 Disability Screening 1965 Alcohol/Substance Use Screening 1979 Hepatitis C Screening 12/29/1985 Hepatitis B Vaccines (1 of 3 - 19+ 3-dose series) 12/29/1986 Pap Smear 12/29/1988 Cervical Cancer Screening 12/29/1997 HPV/Cotest 12/29/1997 Mammogram 2007 Pneumococcal Vaccine: 50+ Years (1 of 1 - PCV) 12/29/2017 Zoster Vaccines (1 of 2) 12/29/2017 Tobacco Screening 11/23/2023 11/22/2022 COVID-19 Vaccine (3 - season) 2025 12/28/2020, 12/07/2020 Influenza Vaccine (#1) 2025 06/28/2023 DTaP/Tdap/Td Vaccines (5 - Td or [...]
--- OUTSIDE RECORDS SUMMARY | 2025-06-24 15:31 | XMS_ITS | Encounter Summary ---
Author Organization [facility] Address [address] [place] [address] Phone Care Team Providers Care Screen Cutter And Trimmer Name Role Phone Unknown, Unknown Primary Care Provider Lara Su MD Primary Care Provid er Encounter Details Date Type Department Care Team (Late st Contact Info) Description 04/28/2021 Procedure Pass [facility] Rad[facility] [address] [place] [address] Social History Tobacco Use Types Packs/Day Years [...] 10:51 AM EDT Tashia Ny PA * Calculated C-SSRS Risk Score (Lifetime/Recent) Answer Date of Assessment Author No Risk Indicated 04/28/2021 12:50 PM EDT Ada Dang RN * [place] Suicide Severity Rating Scale (Screener/Recent Self-Report) Question Answer Date of Assessment Author 1. Wish to be (Past 1 Month) No 04/28/2021 12:50 PM EDT Boaz Dang i, RN 2. Non-Specific Active Suici morgan Thoughts (Past 1 Month) No 04/28/2021 12:50 PM EDT Ada Dang RN 6. Suicidal Behavior (Lifetime) No 12:50 PM EDT Ada Dang RN documented as of this encounter Mental Status * Patient has serious difficulty concentrating, remembering, or making decisions due to physical, mental, or emotional condition Answer Entry Date Author No 03/16/2017 10:51 AM ANTOINET Tashia Ny PA documented in this encounter Plan of Treatment Not on file documented as of this encounter Visit Diagnoses Not on filedocumented in this encounter Additional Health Concerns Assessment Noted Time PHQ-2 Depression Total Score: 6 11/20/19 19 12:26 PM EST documented as of this encounter Care Teams Screen Cutter And Trimmer Relationship Specialty Start Date End Date Unknown, Unknown, MD PCP - General 04/24/21 07/14/21 Lara Mercado MD [address] [place] [address] PCP - General Internal Medicine 07/15/21 documented as of this encounter Additional Source Comments The information contained in this document represents components of the legal health record. It is not the complete legal health record.[facility]
--- OUTSIDE RECORDS SUMMARY | 2025-06-24 15:31 | XMS_ITS | Encounter Summary ---
Author Organization [facility] Address [address] [place] [address] [place] [address] Phone Care Team Providers Care Ship Cleaner Name Role Phone Unknown, Unknown Primary Care Provider Paul Malone MD Primary Care Provider [phone] Jacky Zelaya MD Unavailable [phone] Unknown, Unknown Primary Care Provider Lara Su MD Primary Care Provid er Encounter Details Date Type Department Care Team (Latest Contact Info) Description 11/22/2016 Transcribe Orders [facility] Neurology EEG Lab [address] [place] [address] [email or web address] Generalized seizure disorder (Primary Dx) Social History Tobacco Use Types [...] documented as of this encounter Results * EEG W/REC AWAKE&ASLEEP (38712) (01/10/2017 1:47 PM EDT) Anatomical Region Laterality Modality EEG Impressions 01/12/2017 1:24 PM EDT This Routine EEG, performed in the waking, drowsy and sleeping states is abnormal due to 1) diffuse delta slowing with L>R frontotemporally predominance including including runs of GRDA; 2) bursts of L>R sharp theta/alpha with embedded left temporal and frontocentral sharp/spike wave discharges beyond breach effect. These findings are consistent left frontotemporal cortical irritability with with an underlying tendency toward focal seizures and bilateral left>right cerebral dysfunction and encephaloapthy. Excessive beta activity can be seen with sedative medication effect including benzodiazepines and is more pronounced over known skull defects. There are no prior EEGs available for comparison. Fellow: Funmi Majano MD I, Reddy Parkinson Jr, MD have reviewed this study and agree with the fellow's interpretation as documented. Narrative 01/12/2017 1:24 PM EDT [facility] Routine EEG Report Patient's name: Nanci Dee Patient's MRN??: [id number] ?Patient : ??1965 Patient gender: ??female Date of the study: 01/10/2017 ?? HISTORY: A 51 year old female with history of brain tumor s/p resection and 2 recent seizures. Current relevant medications: carbamazepine (Carbatrol/Tegretol), clonazepam (Klonopin), levetiracetam (Keppra) and perampanel (Fycompa), Valproate. TECHNICAL SUMMARY: This is a routine EEG performed with anterior temporal as well as standard 10-20 electrodes. Data are recorded using an [employer] digital EEG machine. DETAILS: The waking background shows fair to good organization, consisting of asymmetric poorly sustained 20-30 V, 9 Hz posterior background with R>L amplitude asymmetry and accentuated over left frontocentral areas, possibly from breach effect. There is good reactivity to eye closure. There is excessive beta activity, more prominent over the left frontocentral region (F3-C3, Cz) in the setting of a known skull defect though location not specified. There is nearly continuous diffuse delta and theta slowing with L>R frontotemporal predominance. There are occasional phase reversing sharp discharges beyond the breach effect, maximum at F7-T3 but also seen independently at times left frontocentrally (F3-C3) and embedded in bursts of more diffuse L>R sharp theta, alpha frequency. Additionally, there is intermittent asymmetric frontally predominant generalized rhythmic 2-3 hz delta activity (GRDA) with higher amplitudes over the left and intermixed sharply contoured theta. Intermittent drowsiness is characterized by attenuation of the background, slow roving eye movements and bilateral more pronounced slowing in the theta and delta range with left predominance. Stage N2 sleep is characterized by, vertex sharp waves and sleep spindles. Hyperventilation for 3 minutes results in moderate bilateral buildup with left predominance. Photic stimulation is not performed. Single lead EKG shows an apparent sinus rhythm of approximately 70 beats per minute. Alex Cordero MD, PhD NEUROLOGY ORDERABLES Final Result documented in this encounter Visit Diagnoses Diagnosis Generalized seizure disorder- Primary Unspecified epilepsy without mention of intractable epilepsy Generalized seizure disorder Unspecified epilepsy without mention of intractable epilepsy documented in this encounter Care Teams Ship Cleaner Relationship Specialty Start Date End Date Unknown, Unknown, MD PCP - General 11/22/16 03/06/17 Paul Grady MD [address] [place] [address] [place] [address] PCP - General Internal Medicine 03/07/17 04/23/21 Unknown, Unknown, MD PCP - General 04/24/21 07/14/21 Lara Mercado MD [address] [place], [place] [address] [address] PCP - General Internal Medicine 07/15/21 Jacky Zelaya MD [address] [place] [address] [place] [address] [email or web address] Student Neurology 11/07/19 09/06/20 documented as of this encounter Additional Source Comments The information contained in this document represents components of the legal health record. It is not the complete legal health record.[facility]
--- OUTSIDE RECORDS SUMMARY | 2025-06-24 15:31 | XMS_ITS | Encounter Summary ---
Author Organization [facility] Address [address] [place] [address] Phone Care Team Providers Care Quill Buncher And Sorter Name Role Phone Lara Mercado MD Primary Care Provid er Encounter Details Date Type Department Care Team (Late st Contact Info) Description 09/09/2021 Telephone [facility], Department of Neurology [address] [place] [address] Matthew Canales MD [email or web address] Social History Tobacco Use Types Packs/Day Years [...] documented as of this encounter Care Teams Quill Buncher And Sorter Relationship Specialty Start Date End Date Lara Mercado MD [address] [place] [address] PCP - General Internal Medicine 07/15/21 documented as of this encounter Additional Source Comments The information contained in this document represents components of the legal health record. It is not the complete legal health record.[facility]
--- OUTSIDE RECORDS SUMMARY | 2025-06-24 15:31 | XMS_ITS | Encounter Summary ---
Author Organization [facility] Address [address] [place] [address] Phone Care Team Providers Care Chief Deputy Clerk/Bailiff Name Role Phone Lara Mercado MD Primary Care Provid er Reason for Visit * Reason Comments Med Change Request Encounter Details Date Type Department Care Team ([facility] Contact Info) Description 02/10/2022 Refill [facility], Department of Neurology [address] [place] [address] Alex Cordero MD, PhD [address] [place] [id number] [email or web address] Med Change Request Social History Tobacco Use Types Packs/Day Years [...] documented as of this encounter Care Teams Chief Deputy Clerk/Bailiff Relationship Specialty Start Date End Date Lara Mercado MD [address] [place] [address] PCP - General Internal Medicine 07/15/21 documented as of this encounter Additional Source Comments The information contained in this document represents components of the legal health record. It is not the complete legal health record.[facility]
--- OUTSIDE RECORDS SUMMARY | 2025-06-24 15:31 | XMS_ITS | Encounter Summary ---
Author Organization [facility] Address [address] [place] [address] Phone Care Team Providers Care Upper Cutter Out Name Role Phone Unknown, Unknown Primary Care Provider Lara Su MD Primary Care Provid er Encounter Details Date Type Department Care Team (Late st Contact Info) Description 05/05/2021 Procedure Pass [facility] [address] [place] [address] Social History Tobacco Use Types Packs/Day Years [...] documented as of this encounter Care Teams Upper Cutter Out Relationship Specialty Start Date End Date Unknown, Unknown, MD PCP - General 04/24/21 07/14/21 Lara Mercado MD [address] [place] [address] PCP - General Internal Medicine 07/15/21 documented as of this encounter Additional Source Comments The information contained in this document represents components of the legal health record. It is not the complete legal health record.[facility]
--- OUTSIDE RECORDS SUMMARY | 2025-06-24 15:31 | XMS_ITS | Encounter Summary ---
Author Organization [facility] Address [address] [place] [address] [place] [address] Phone Care Team Providers Care Vacuum Frame Operator Name Role Phone Lara Mercado MD Primary Care Provid er Encounter Details Date Type Department Care Team (Late st Contact Info) Description 09/27/2022 Procedure Pass [facility] Periop [address] [place] [address] Social History Tobacco Use Types Packs/Day Years [...] documented as of this encounter Care Teams Vacuum Frame Operator Relationship Specialty Start Date End Date Lara Mercado MD [address] [place] [address] PCP - General Internal Medicine 07/15/21 documented as of this encounter Additional Source Comments The information contained in this document represents components of the legal health record. It is not the complete legal health record.[facility]
--- OUTSIDE RECORDS SUMMARY | 2025-06-24 15:31 | XMS_ITS | Encounter Summary ---
Author Organization [facility] Address [address] [place] [phone] Phone Care Team Providers Care Filling Hand Name Role Phone Lara Mercado MD Primary Care Provid er Encounter Details Date Type Department Care Team (Late st Contact Info) Description 07/21/2022 Procedure Pass [facility] [address] [place] [address] Social History Tobacco Use Types Packs/Day Years [...] documented as of this encounter Care Teams Filling Hand Relationship Specialty Start Date End Date Lara Mercado MD [address] [place] [address] PCP - General Internal Medicine 07/15/21 documented as of this encounter Additional Source Comments The information contained in this document represents components of the legal health record. It is not the complete legal health record.[facility]
--- OUTSIDE RECORDS SUMMARY | 2025-06-24 15:31 | XMS_ITS | Encounter Summary ---
Author Organization [facility] Address [address] [place] [id number] Phone Care Team Providers Care Wooden Tank Erector Name Role Phone Lara Mercado MD Primary Care Provid er Encounter Details Date Type Department Care Team (Late st Contact Info) Description 07/21/2022 Procedure Pass [facility] [address] [place] [address] Social History Tobacco Use Types Packs/Day Years [...] documented as of this encounter Care Teams Wooden [employer] Erector Relationship Specialty Start Date End Date Lara Mercado MD [address] [place] [address] PCP - General Internal Medicine 07/15/21 documented as of this encounter Additional Source Comments The information contained in this document represents components of the legal health record. It is not the complete legal health record.[facility]
--- OUTSIDE RECORDS SUMMARY | 2025-06-24 15:31 | XMS_ITS | Data Portability ---
Author Organization [facility], Main Office Address [address] [facility], [address] [place] [address] Care Team Providers Care Citizen Participation Specialist Name Role Phone DULCE MARIA BRITO - 2ND FLOOR OTHER BRITTANY CARDENAS Primary Care Provider Assessment Encounter Date Assessment Date Assessment LastModified by Organization Details LastModified Time 05/06/2024 05/06/2024 I have seen and examined the patient independently and confirmed the findings above with the REBRANDER student note. Management plan discussed with the REBRANDER student personally. [email or web address] Not available 05/06/2024 14:53:50 Plan of Treatment [...] and Address Organization Details Recorded Time Seizure 58597137 Active 2023 RADHA PAREKH NP [address] [facility], [facility] [address], [place], [address], [facility] 4 13:12:57 Compressi on fracture of thoracic vertebra 979602722415 4 Active 2023 T 12 RADHA PAREKH NP [address] [facility], [facility] [address], [place], [address], [facility] 4 14:24:14 Psychotic disorder 63716305 Active 2023 RADHA PAREKH NP [address] [facility], [address], [place], [address], [facility] 4 14:24:23 Hypomagne semia 759071409 Active 2023 RADHA PAREKH NP [address], [place], [address], [facility] [employer] [facility] 4 14:24:34 Delusiona l disorder 30627193 Active 2023 RADHA PAREKH NP [address], [place], [address], [facility] [employer] [facility] 4 14:24:45 Urinary incontine mne 481706327 Active 2023 RADHA PAREKH NP [address], [place], [place], [address], [employer] 4 14:25:02 Overactiv e urinary bladder 140339638 Active 2023 RADHA PAREKH NP [address], [address], [place], [address], [facility] [employer] 4 14:25:10 Irritable bowel syndrome 12190925 Active 2023 RADHA PAREKH NP [address], [place], [address], [facility] 4 14:25:16 Obese 619000574 Active 2023 RADHA PAREKH NP [address], [place], [address], [facility] 4 14:25:54 Low blood pressure 96167413 Active 2023 RADHA PAREKH NP [address], [place], [address], [facility] 4 14:26:04 Anemia 931912546 Active 2023 RADHA PAREKH NP [address], [place], [address], [facility] 4 14:26:12 Major depressiv e disorder 990014697 Active 2023 RADHA PAREKH NP [address], [place], [address], [facility] 4 14:26:30 Pain of multiple joints 11283299 Active 2023 RADHA PAREKH NP [address] [facility], [address], [place], [address], [facility] 4 14:26:40 Ataxia 52031482 Active 2023 RADHA PAREKH NP [address] [facility], [address], [place], [address], [facility] 4 14:26:48 Expressiv e language disorder 460928686 Active 2023 RADHA PAREKH NP [address] [facility], [address], [place], [address], [facility] 4 14:27:23 Hyponatre mik 92901540 Active 2023 RADHA PAREKH NP [address] [facility], [address], [place], [address], [facility] 4 14:27:34 Gastroeso phageal reflux disease without esophagit is 357565951 Active 2023 RADHA PAREKH NP [address] [facility], [address], [place], [address], [facility] 4 14:27:49 Neoplasm of brain 124187520 Active 2023 History of, s/p craniotom y RADHA PAREKH NP [address] [facility], [address], [place], [address], [facility] 4 14:53:53 Fracture of tibia AND fibula 080975641 Active 2023 s/p IMN 04/18/24 Dr. Néstor PAREKH NP [address] [facility], [address], [place], [address], [facility] 4 14:54:33 Impaired cognition 557371211 Active 2023 Lavinia Munoz MD [address] [facility], [address], [place], [address], [facility] 4 17:07:04 Problem Notes None recorded. Medical Equipment None Reported. Allergies Allergen ID Allergen Name Allergen Category Reaction Reaction Severity Criticality Documentation Date Start Date Code Code System Note Provider Name and Address Organization Details Recorded Time 61617 Iodinated contrast media (substanc e) medicatio n Not available Not available Not available 04/22/2024 41673 2004 SNOMED RADHA PAREKH NP [address] [facility], [address], [place], [address], [facility] 4 14:17:43 21789 Product containin g penicilli n (product) medicatio n Not available Not available Not available 04/22/2024 50916 8001 SNOMED RADHA PAREKH NP [address] [facility], [address], [place], [address], [facility] 4 14:17:53 84698 Dilantin medicatio n Not available Not available Not available 04/22/202415741 0 RxNorm RADHA PAREKH NP [address] [facility], [address], [place], [address], [facility] 4 14:18:00 Medications Name Sig Start Date [...] in Arterial blood by Pulse oximetry Systolic And Diastolic Provider Name and Address Organization Details Last Updated DateTime 4 165.1 cm 30 kg/m2 81887.6 3 g 72 /min 17 /min 98 [degF] 98 % 98 % 141/96 mm[Hg] Lavinia Munoz MD [address] [facility], [address], [place], [address], [facility] [employer] 4 15:55:10 Date Recorded Body height Heart rate Respiratory rate Body temperature Oxygen saturation Oxygen saturation in Arterial blood by Pulse oximetry Systolic And Diastolic Provider Name and Address Organization Details Last Updated DateTime 4 165.1 cm 72 /min 17 /min 98 [degF] 98 % 98 % 141/96 mm[Hg] RADHA PAREKH NP [address] [facility], [address], [place], [address], [facility] 4 13:55:54 Date Recorded Body height Heart rate Respiratory rate Body temperature Oxygen saturation Oxygen saturation in Arterial blood by Pulse oximetry Systolic And Diastolic Provider Name and Address Organization Details Last Updated DateTime 4 165.1 cm 72 /min 17 /min 98 [degF] 98 % 98 % 141/96 mm[Hg] RADHA PAREKH NP [address] [facility], [address], [place], [address], [facility] 4 12:49:49 Date Recorded Body height Body mass index (BMI) Body weight Heart rate Respiratory rate Body temperature Oxygen saturation Oxygen saturation in Arterial blood by Pulse oximetry Systolic And Diastolic Provider Name and Address Organization Details Last Updated DateTime 4 165.1 cm 30 kg/m2 91639.4 2 g 72 /min 17 /min 98 [degF] 98 % 98 % 141/96 mm[Hg] Irnee mondragon [facility] 4 14:28:15 Date Recorded Body height Body mass index (BMI) Body weight Heart rate Respiratory rate Body temperature Oxygen saturation Oxygen saturation in Arterial blood by Pulse oximetry Systolic And Diastolic Provider Name and Address Organization Details Last Updated DateTime 4 165.1 cm 30 kg/m2 81829.6 3 g 78 /min 18 /min 96.6 [degF] 98 % 98 % 98/60 mm[Hg] Aminta Johnson NP [address] [facility], [address], [place], [address], [facility] 4 13:12:27 Social History Question Answer Notes LastModified by Organizat ion Details LastModified Time Tobacco Smoking Status Never Smoker RADHA PAREKH NP [address] [facility], [address], [place], [address], [facility] 04/22/2024 14:28:36 Do You Have An Advance Directive? Yes Information not available 04/28/2024 What Is Your Code Status? Full Code [email or web address] Information not available 04/22/2024 Where Do You Live? Apartment With Daughter, Full Flight Of Stairs To Enter. Ambulates Ad Flori. Has grey roll worker During The Day While Family Works. [email or web address] Information not available 04/22/2024 Legal Guardian? No Information not available 04/28/2024 Do You Have A Medical Power Of Executive Administrator? Yes Has HCP, Invoked 04/22/24 Information not available 04/28/2024 What Was The Date Of Your Most Recent Tobacco Screening? 04/22/2024 [email or web address] Information not available 04/22/2024 Do You Have [...] other forms of tobacco or nicotine? No [email or web address] Information not available 04/22/2024 What is your level of alcohol consumption? None [email or web address] Information not available 04/22/2024 Mental Status None recorded. Family History Relationship Description Onset Age of this Age Resolved Age Notes LastModified by Organization Details LastModified Time Father Heart disease [email or web address] Not available 2023 14:28:07 Mother Diabetes mellitus Not available 2023 14:28:16 Medical History No medical history recorded. Gynecological HistoryNo gynecological history recorded. Obstetrics History GPAL:G 0 P 0 0 0 0 Immunizations Vaccine Type Date Status Note Provider Nam e and Address Organization Details Recorded Time DTaP, unspecified formulation 10/30/2018 completed Jessica ashby [facility] 04/22/2024 13:04:17 Tdap 03/08/2020 completed Jessica ashby [facility] 04/22/2024 13:04:33 Tdap 09/28/2020 jorge Raye Ha [facility], [facility] 04/22/2024 13:04:41 Tdap 11/01/2021 completed Jessica Bonner [facility], [facility] 04/22/2024 13:04:48 Td(adult) unspecified formulation 03/03/2018 completed Jessica Bonner [facility], [facility] 04/22/2024 13:05:02 influenza, unspecified formulation 06/28/2023 completed Jessica Bonner [facility] 04/22/2024 13:05:17 SARS-COV-2 (COVID-19) vaccine, UNSPECIFIED 12/07/2020 completed Jessica Bonner [facility] 04/22/2024 13:05:34 SARS-COV-2 (COVID-19) vaccine, UNSPECIFIED 12/28/2020 completed Jessica Bonner [facility] 04/22/2024 13:05:41 Past Encounters Encounter ID Performer Location Encounter Start Date Encounter Closed Date Diagnosis/Indication Diagnosis SNOMED-CT Code Diagnosis ICD10 Code Diagnosis IMO Codes Diagnosis Note [id number] RADHA PAREKH NP [facility] [address] [facility] [facility] [place] [address] 04/22/2024 12:23:51 04/23/2024 13:07:55 Seizure 35454164 R56.9 Suspected sz. activity resulting in fall with injury.See n by Dr. Barnes ar [facility], no med changes made.Usual Neurologis t is Dr. Cordero in [place] ([facility]), missed last appt., encouraged daughter to reschedule in light of recent sz. activity.C urrent meds:Xcopr i 200 mg qdPhenobar bital 129.6 mg q HSClobazam 5 mg q am, 25 mg q pmAptiom 600 mg q HSGabapent in 300 mg bidMonitor neuro status closely Fracture o f tibia AND fibula 393282241 S82.201A Right tib-fib fx. resulting from fall at home.Under went IMN 04/18 by britt Cat. wellWBATCa m boot at all timesDCD to remain in place.love nox 40 mg qd x 42 days for ACAPAP 975 mg tid scheduled and oxycodone 5 mg q 6 hrs prn for pain mgmt. - monitor use and effect, adjust as needed.PT OT eval and tx.Goal is to return home.Updat e Ortho with concerns, follow up in 2 wks. Anemia 727550246 D64.9 Post op, down to 7.4, transfused with 2 units PRBCs with improvemen t to 10.4Now on ACMonitor s/s active bleedingMo nitor CBCs Psychotic disorder 23081 001 F29 Continue home meds:gabap entin 300 mg bidhaldol 5 mg q am, 10 mg q pmInvoke HCP 04/22/24Mon itor mood and behaviorsP sych eval prn Major depr essive disorder 187794663 F32.9 Not on antidepres santsMonit or mood and behaviors Hypomagnesemia 495922544 E83.42 Continue Mag Ox 400 mg qdLast Mg. level 1.7, monitor. Gastroesop hageal reflux disease without esophagitis 057254830 K21.9 Continue pantoprazo le 40 mg qdMonitor GIsx. Irritable bowel syndrome 69367147 K58.9 Continue bentyl 10 mg qidMonitor GI sx. [id number] RADHA PAREKH, MELBA [address] [address] 04/24/2024 11:21:09 04/25/2024 15:37:36 Seizure 23069519 R56.9 Suspected sz. activity resulting in fall with injury.See n by Dr. Barnes ar [facility], no med changes made.Usual Neurologis t is Dr. Cordero in [place] ([facility]), missed last appt., encouraged daughter to reschedule in light of recent sz. activity.C urrent meds:Xcopr i 200 mg qdPhenobar bital 129.6 mg q HSClobazam 5 mg q am, 25 mg q pmAptiom 600 mg q HSGabapent in 300 mg bidMonitor neuro status closely, no sz. activity so far while here. Fracture o f tibia AND fibula 834871677 S82.201A Right tib-fib fx. resulting from fall at home.Under went IMN 04/18 by britt Cat. wellWBATCa m boot at all timesDCD to remain in place.love nox 40 mg qd x 42 days for ACAPAP 975 mg tid scheduled and oxycodone 5 mg q 6 hrs prn for pain mgmt. - monitor use and effect, adjust as needed.PT OT eval and tx.Goal is to return home.Updat e Ortho with concerns, follow up in 2 wks. Anemia 943619696 D64.9 Post op, down to 7.4, transfused with 2 units PRBCs with improvemen t to 10.4Curren t hgb 9.9.Now on ACMonitor s/s active bleedingMo nitor CBCs Psychotic disorder 47718 001 F29 Continue home meds:gabap entin 300 mg bidhaldol 5 mg q am, 10 mg q pmInvoke HCP 04/22/24Mon itor mood and behaviorsP sych eval prn Major depr essive disorder 083006325 F32.9 Not on antidepres santsMonit or mood and behaviors Hypomagnesemia 019673238 E83.42 Continue Mag Ox 400 mg qdLast Mg. level 1.7, monitor. Gastroesop hageal reflux disease without esophagitis 610109351 K21.9 Continue pantoprazo le 40 mg qdMonitor GIsx. Irritable bowel syndrome 26144741 K58.9 Continue bentyl 10 mg qidMonitor GI sx. [id number] Lavinia Munoz MD [address] [address] 04/28/2024 15:38:43 05/12/2024 14:58:50 Seizure 90539353 G40.89 With long hx of seizures, difficult to control, she has also had poor tolerance to meds.At last neuro appt at [facility] with Dr. Cordero she reported 3 [...] planned. Fracture o f tibia AND fibula 430104154 S82.51XD S82.61XD Recovering well from ORIF of right tib-fib fx.May WBATTo wear Cam boot at all timesConti nue APAP 975 mg TID scheduled and oxycodone 5 mg q 6 hrs prn.Contin ue Lovenox 40 mg qd for DVT prophylaxi s for 6 wks post-op..F /U with ortho as planned.. Anemia 747190521 D62 D64.89 Acute on chronic.Wa s stable as of 04/24, no labs done today.Clari tor labs.Consi annabella adding iron. Psychotic disorder 30124 001 F28 No evidence of delusions since here.Lizbeth nue gabapentin 300 mg BID and haldol 5 mg q am and 10 mg q pmMonitor mood and behaviorsP sych eval prn Major depr essive disorder 802537561 F32.89 As above. Hypomagnesemia 744148012 E83.42 Continue Mag Ox 400 mg qdMonitor levels Gastroesop hageal reflux disease without esophagitis 918348014 K21.9 No current sxs.Contin ue pantoprazo le 40 mg qdMonitor GI sxs. Irritable bowel syndrome 68932142 K58.9 Continue bentyl 10 mg qidMonitor GI sxs. Impaired cognition 40827 6002 R41.89 With poor short term recall regarding medical issues especially .Likely due to craniotomi es and frequent seizures.B IM was 05/08.HCP invoked 04/22/24Con tinue supportive care, expect decline.Mo nitor mood and behaviors. Psych consult prn. [id number] [facility]KH[facility] [address] 04/29/2024 10:41:26 04/30/2024 19:12:03 Seizure 44196891 G40.89 With long hx of seizures, difficult to control, she has also had poor tolerance to meds.At last neuro appt at [facility] with Dr. Cordero she reported 3 [...] planned. Fracture o f tibia AND fibula 700975804 S82.51XD S82.61XD Recovering well from ORIF of right tib-fib fx.January WBATTo wear Cam boot at all times - encourage compliance .Continue APAP 975 mg TID scheduled and oxycodone 5 mg q 6 hrs prn.Contin ue Lovenox 40 mg qd for DVT prophylaxi s for 6 wks post-op..F /U with ortho as planned.. Anemia 072777551 D62 D64.89 Acute on chronic.Wa s stable as of 04/24, repeat labs 05/05Monito r labs.Consi annabella adding iron. Psychotic disorder 68112 001 F28 No evidence of delusions since here.Lizbeth nue gabapentin 300 mg BID and haldol 5 mg q am and 10 mg q pmMonitor mood and behaviorsP sych eval prn Major depr essive disorder 872732795 F32.89 As above. Hypomagnesemia 387226143 E83.42 Continue Mag Ox 400 mg qdMonitor levels Gastroesop hageal reflux disease without esophagitis 365673598 K21.9 No current sxs.Contin ue pantoprazo le 40 mg qdMonitor GI sxs. Irritable bowel syndrome 74231940 K58.9 Continue bentyl 10 mg qidMonitor GI sxs. Impaired cognition 95498 6002 R41.89 With poor short term recall regarding medical issues especially .Likely due to craniotomi es and frequent seizures.B IM was 05/08.HCP invoked 04/22/24Con tinue supportive care, expect decline.Mo nitor mood and behaviors. Psych consult prn. [id number] RADHA PAREKH NP [address] [address] 05/01/2024 12:48:05 05/06/2024 15:42:55 Seizure 40442626 G40.89 With long hx of seizures, difficult to control, she has also had poor tolerance to meds.At last neuro appt at [facility] with Dr. Cordero she reported 3 [...] or for seizures.F /U with Dr. Cordero ([phone]) as planned. Fracture o f tibia AND fibula 096513855 S82.51XD S82.61XD Recovering well from ORIF of right tib-fib fx.May WBATTo wear Cam boot at all times - encourage compliance .Continue APAP 975 mg TID scheduled and oxycodone 5 mg q 6 hrs prn.Contin ue Lovenox 40 mg qd for DVT prophylaxi s for 6 wks post-op..F /U with ortho as planned..P MR recommendi ng Ibuprofen 800 mg bid x 2 wks, will add and monitor closely Anemia 471021587 D62 D64.89 Acute on chronic, improvingM onitor labs. Psychotic disorder 78643 001 F28 No evidence of delusions since here.Lizbeth nue gabapentin 300 mg BID and haldol 5 mg q am and 10 mg q pmMonitor mood and behaviorsP sych eval prn Major depr essive disorder 453802478 F32.89 As above. Hypomagnesemia 938509654 E83.42 Mg 1.6Continu e Mag Ox 400 mg qdMonitor levels Gastroesop hageal reflux disease without esophagitis 847100134 K21.9 No current sxs.Contin ue pantoprazo le 40 mg qdMonitor GI sxs. Irritable bowel syndrome 34046511 K58.9 Continue bentyl 10 mg qidMonitor GI sxs. Impaired cognition 50934 6002 R41.89 With poor short term recall regarding medical issues especially .Likely due to craniotomi es and frequent seizures.B IM was 05/08.HCP invoked 04/22/24Con tinue supportive care, expect decline.Mo nitor mood and behaviors. Psych consult prn. [id number] RADHA PAREKH NP [address] [place] [address] 05/06/2024 12:39:48 05/07/2024 13:34:53 Seizure 64842478 G40.89 Long hx of seizures, difficult to control, with poor tolerance to meds.At last neuro appt at [facility] with Dr. Cordero she reported 3 [...] planned. Fracture o f tibia AND fibula 350712983 S82.51XD S82.61XD s/p ORIF of right tib-fib [...] then reeval.F/U with ortho as planned. Anemia 497049107 D62 D64.89 Acute on chronicMon itor labs. Psychotic disorder 07107 001 F28 No report of delusions since here.No change in mood or behaviors. Continues to be suspicious Continue:g abapentin 300 mg BIDhaldol 5 mg q am and 10 mg q pmMonitor mood and behaviorsP sych eval prn Major depr essive disorder 415149467 F32.89 No change in mood and behaviorsC ontinue:ga bapentin 300 mg BIDhaldol 5 mg q am and 10 mg q pmMonitor mood and behaviorsP sych eval prn Hypomagnesemia 576700983 E83.42 Mg 1.6Continu e Mag Ox 400 mg qdMonitor labs Gastroesop hageal reflux disease without esophagitis 765779745 K21.9 Asymptomat icContinue pantoprazo le 40 mg qdMonitor sxs. Irritable bowel syndrome 55504292 K58.9 Continue bentyl 10 mg qidNo reported GI sxs.Monito r GI sxs. Impaired cognition 76629 6002 R41.89 Continues with poor short term recall especially medical issuesLike ly due to frequent sz and hx of craniotomi esBIM was 05/08 on 04/22/24.HC P invoked 04/22/24Con tinue supportive care, expect decline.Mo nitor mood and behaviors. Psych consult prn. [id number] Aminta Johnson NP [address] [address] 05/09/2024 13:11:48 05/16/2024 15:24:40 Fracture of tibia AND fibula 004001229 S82.51XD S82.61XD s/p ORIF of right tib-fib [...] as planned outpt and with pcp Seizure 24948461 G40.89 Long hx of seizures, difficult to control, with poor tolerance to meds.At last neuro appt at [facility] with Dr. Cordero she reported 3 [...] planned outpt and with pcp outpt Anemia 654598710 D62 D64.89 Acute on chronicMon itor labs outpt per pcp Psychotic disorder 09178 001 F28 No report of delusions since here.No change in mood or behaviors. Continues to be suspicious at timesCont: gabapentin 300 mg BIDhaldol 5 mg q am and 10 mg q pmMonitor mood and behaviorsP sych eval prn outpt Major depr essive disorder 815531099 F32.89 No change in mood and behaviorsC ont:gabape ntin 300 mg BIDhaldol 5 mg q am and 10 mg q pmMonitor mood and behaviorsP sych eval prn outpt Hypomagnesemia 958463581 E83.42 Mg 1.6Continu e Mag Ox 400 mg qdMonitor labs outpt with pcp Gastroesop hageal reflux disease without esophagitis 930704719 K21.9 Asymptomat icContinue pantoprazo le 40 mg qdMonitor sxs. outpt iwth pcp Irritable bowel syndrome 93954620 K58.9 Continue bentyl 10 mg qidNo reported GI sxs.Monito r GI sxs outpt with pcp Impaired cognition 36382 6002 R41.89 Continues with poor short term recall especially medical issuesLike ly due to frequent sz and hx of craniotomi esBIM was 8/15 on 04/22/24.HC P invoked 04/22/24Con tinue supportive care, expect decline.Mo nitor mood and behaviors. Psych consult prn outptdaugh janiya is helpful and has hotel lobby concierge to help with needs, vna Health Concerns Section Related Observation LastModified by Organization Detai ls LastModified Time None Recorded Concern Status LastModified by Organization Details LastModified Time None Recorded Advance Directives Directive Y: Payers Insurance Date Sequence Insurance Name Policy Number Policy Mims Covered Member ID Mims Member ID Guarantor Name 04/24/2024 2 [place] [employer] Nanci Dee [id number] Nanci Dee 04/24/2024 1 [place] [email or web address] Nanci Dee [id number] Nanci eDe Notes Date Note Type Note Provider Name and Address Organization Details Recorded Time 04/28/2024 text/html This is a 58 yo woman who is here for rehab after an acute hospitalization for a right tib-fib fx after a fall caused by a seizure.She presented to the [facility] ED on 04/16 after having a seizure [...] seizure disorder from last neuro appt in [place]: refractory epilepsy and psychotic syndrome. 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 A February 2017 EMU admission captured [...] her face. I see her with a hungarian speaking staff member.She tells me her leg [...] aphasia, hyponatremia, and GERD Lavinia Munoz MD [address] [place] [address], [address], [place], [address], [facility] [employer] 04/28/2024 19:24:46 04/29/2024 text/html Nanci is seen today for an acute visit. She is a 58 yo woman who is here for rehab after an acute hospitalization for a right tib-fib fx after a fall caused by a seizure.She presented to the [facility] ED on 04/16 after having a seizure [...] seizure disorder from last neuro appt in [place]: refractory epilepsy and psychotic syndrome. 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 A February 2017 EMU admission captured [...] hyponatremia, and GERD RADHA PAREKH, MELBA [address] [facility], [address], [place], [address], [facility] [facility] [employer] 04/29/2024 14:03:12 05/01/2024 text/html Nanci is seen today for an acute visit. She is a 58 yo woman who is here for rehab after an acute hospitalization for a right tib-fib fx after a fall caused by a seizure.She presented to the [facility] on 04/16 after having a seizure [...] seizure disorder from last neuro appt in [place]: refractory epilepsy and psychotic syndrome. 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 A February 2017 EMU admission captured multiple electrographic and electroclinical seizures despite ASDs polytherapy and VNS. She underwent further parietal corticectomy in March [address] Mcfadden with path c/w gliosis. Since here she has been working off and on with rehab.Staff reporting she is still non compliant with her boot.Seen by PMR, lilliana. APAP and ibuprofen (800 mg bid x 2 wks) recommendedVSS, BP remains variable.Labs stable. Upon exam, Nanci is in bed, alert, holding sheets up near her head, eyeing me suspiciously. Weight Checker present during visit, her main complaint is [...] hyponatremia, and GERD RADHA PAREKH, MELBA [address], [address], [place], [address], [facility] 05/01/2024 13:07:38 05/06/2024 text/html ROS as noted in the HPI Nanci is seen today for an acute visit. Felisha is a 58 yo woman who is here for rehab after hospitalization for a fall caused by a seizure that resulted in a right tib-fib fx. She presented to the [facility] on 04/16 after having a seizure [...] with recovery to 10.2.She was transferred to [facility] on 04/21. Of note, a brief hx of her seizure disorder from last neuro appt in [place]: refractory epilepsy and psychotic syndrome. 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 A February 2017 EMU admission captured [...] ataxia, expressive aphasia, hyponatremia, and GERD RADHA PAREKH NP [address], [address], [place], [address], [facility] [employer] 05/06/2024 20:31:24 05/09/2024 text/html ROS as noted in the HPI Nanci is seen today for a discharge [...] tib-fib fx. Felisha initially presented to the [facility] on 04/16 after having a seizure [...] possible vagus stimulator. She was transferred to [facility] on 04/21 for continued care and [...] seen sitting up in her room in [facility]. She denies any pain and allows [...] appt planned aswell. Aminta Johnson NP [address], [address], [place], [address], [facility] - [employer] 05/09/2024 13:51:35 OBGyn Episode No OBEpisode recorded.
== END 2025-06-24 15:18 | disposition home or self-care (01) ==
LOC: HO.HSMS 14:18
PROVIDERS: Visit Provider Psychiatry & Neurology Neurology
DX: G40.909 Epilepsy, unspecified, not intractable, without status epilepticus (principal); R41.89 Other symptoms and signs involving cognitive functions and awareness
CPT/HCPCS: 99204

== ENCOUNTER → 2025-06-24 14:17 | Outpatient (BNVA) | payer MEDICARE, MEDICAID, SELFPAY | PROVIDERS: Visit Provider Psychiatry & Neurology Neurology | DX: G40.909 Epilepsy, unspecified, not intractable, without status epilepticus (principal); R41.89 Other symptoms and signs involving cognitive functions and awareness | CPT/HCPCS: 99202 ==

== ENCOUNTER 2025-07-01 14:39 | Outpatient (AMB) | payer MEDICARE, MEDICAID, SELFPAY ==
--- NOTE | 2025-07-01 14:53 | MHC.OFFVIS ---
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 Intake Note: here for bait tier annual Casing Tier Required: Yes Casing Tier Services: Casing Tier Offered & Declined Casing Tier Name: daughter timothy reyna Information Interpreted: non-clinical & clinical Medication Administration Professional: Medication Administration Professional Present (sil) Accompanied by: Daughter Allergies Iodinated Contrast Media (IV Dye, Iodine Containing) Allergy (Intermediate, Verified 06/24/25 14:23) RED ALL OVER NAUSEA AND LOST RESPIRATIONS Penicillins (PENICILLINS) Allergy (Intermediate, Verified 06/24/25 14:23) Unknown phenytoin (From Dilantin) Allergy (Intermediate, Verified 06/24/25 14:23) gum swelling lamotrigine (From Lamictal) Allergy (Unknown, Verified 06/24/25 14:23) unknown Medication List - Last Reconciled 07/01/25 by Romina Reyes LPN acetaminophen (Tylenol Extra Strength) 500 mg PO Q6H PRN [bed rail As directed] cenobamate (Xcopri) 200 mg PO DAILY clobazam 25 mg PO BEDTIME clobazam 5 mg PO DAILY dicyclomine 20 mg PO BID eslicarbazepine (Aptiom) 600 mg PO BEDTIME furosemide (Lasix) 40 mg PO DAILY 30 days haloperidol 5 mg PO BID lacosamide 100 mg PO BID magnesium oxide 400 mg PO BEDTIME multivitamin 1 tab PO DAILY pantoprazole (Protonix) 40 mg PO DAILY@0630 90 days phenobarbital 129.6 mg PO BEDTIME sennosides (Senna Laxative) 17.2 mg PO BEDTIME PRN [transport wheelchair As directed] [wipes As directed] Do you need a note to return to daycare/school/sports/work: No HPI Comments Details: Patient is a postmenopausal woman presenting for her annual bait tier examination, accompanied by her daughter Timothy who is also requesting to be her passenger conductor. Coordinator Volunteer Services concerns: none. Currently not sexually active. Denies any vaginal dryness or irritation. Timothy reports a decreased appetite this week. Limited exercise. Last pap smear; 2020, negative. Last mammogram; 2023. Colonoscopy is UTD. Denies any family history of breast, ovarian or colon cancer. [facility] Medical History Seizure disorder Closed head injury Intractable generalized seizure disorder Seizure History of fibula fracture Hyperkalemia Hypomagnesemia Urinary incontinence Hyponatremia Fracture of proximal phalanx of finger of left hand Fracture of proximal phalanx of finger of right hand Toxic metabolic encephalopathy Drowsiness Right tibial fracture Right fibular fracture Nasal bone fracture History of tibial fracture Closed rib fracture Fracture of proximal humerus with routine healing Humeral surgical neck fracture Diarrhea Irritable bowel syndrome with diarrhea Delusional disorder Epilepsy Fracture of T12 vertebra Psychosis Recurrent seizures Burn injury IBS (irritable bowel syndrome) Overactive bladder Class 1 obesity due to excess calories with body mass index (BMI) of 30.0 to 30.9 in adult Mild recurrent major depression Gait instability Polyarthralgia Unsteady gait Expressive aphasia Encephalomalacia GERD (gastroesophageal reflux disease) Hypotension Seizures Surgical History H/O colonoscopy History of tumor H/O prior ablation treatment History of skin graft History of tubal ligation Surgical history unknown Family History Father Heart problem Dementia Mother Diabetes Low blood pressure Family/Other Substance use disorder Mental health disorder Social History Household Members: Family Household Members Other:: with daughter Housing: House Do you presently have visiting nurse or other home services: Yes Unable to assess alcohol history related to: Unable to respond Alcohol intake: never Comment: 1:1 sitter Patient Tobacco Use Status: Never used Tobacco e-Cigarette/Vaping Use: Never Used Second Hand Smoke Exposure: No Advance Directives Date on File: 01/09/23 service: No Current occupational status: disabled Current occupation: rt handed Sexual orientation: Straight/Heterosexual Gender identity: Female Cognitive needs: Yes (walker) Hearing needs: No Vision needs: Yes (glasses) Female Reproductive History Menstrual Menopause type: natural Total pregnancies: 3 Number of Living Children: 2 Ab spontaneous: 1 Date of last pap smear: 03/25/21 History of abnormal pap smear: No Date of Mammogram: 10/22/23 History of abnormal mammogram: No Review of Systems Const All systems reviewed & are unremarkable except as noted in HPI and below Reports as per HPI Eyes Reports no additional complaints ENT Reports no additional complaints Card Reports no additional complaints Resp Reports no additional complaints GI Reports as per HPI and Reports no additional complaints Reports as per HPI Musc Reports no additional complaints Skin/Breast Reports as per HPI Neuro Reports no additional complaints Psych Reports no additional complaints Endo Reports no additional complaints Manpreet/Lymph Reports no additional complaints Aller/Immun Reports no additional complaints Physical Exam Vital Signs: Last Vital Signs BP 116/76 07/01/25 14:56 BMI result Body Mass Index 25.8 Const General: cooperative, healthy appearing, no acute distress, well developed and alert Orientation/consciousness: patient oriented x3 HEENT Head: Yes normal to inspection Eyes General: appearance normal, both eyes and all related structures Neck Neck: Yes normal visual inspection Thyroid: Thyroid normal Chest Chest palpation & inspection: normal inspection of the chest and other (no puckering, dimpling, peau de orange, retraction, discharge, masses) Breast/axilla inspection: normal inspection of the breasts Breast/axilla palpation: normal palpation of the breasts Resp Effort & Inspection: normal respiratory effort GI Inspection: Yes normal to inspection Palpation (GI): Soft to palpation Rectal Exam - Female: deferred General: Yes bladder normal to palpation External Female Exam: normal external appearance and normal appearance of the urethra Speculum Exam - Vagina: normal appearance of the vagina, normal palpation, normal vaginal discharge and vagina atrophic Speculum Exam - Cervix: normal appearance of the cervix and normal palpation Bimanual exam- vagina & uterus: normal bimanual exam, normal palpation, uterine size normal, bladder normal to palpation, normal palpation and non-tender Bimanual Exam- Adnexa, other: no masses Skin General skin exam: no rashes or lesions noted Rashes: no rashes Neuro General: patient oriented x3 Cognition (Neuro): normal cognition Extrem General: Yes normal to inspection Psych Attitude: cooperative Thought process: Normal thought process present Assessment & Plan Assessment & Plan (1) Encounter for well woman exam with routine gynecological exam: Code(s): Z01.419 - Encounter for gynecological examination (general) (routine) without abnormal findings Plan Discussed: Current recommendations for pap smears per ASCCP guidelines. Breast awareness, periodic self breast exams and yearly mammogram. Maintain a healthy lifestyle, well balanced diet including Calcium 1,200 mg and Vitamin D 600 IU daily, and routine exercise. Contact the office with any postmenopausal bleeding. Patient verbalizes understanding and agrees to the plan of care. She was given opportunity to ask questions and all questions were answered to the best of my ability. RTO in 1 year for annual bait tier exam. This note is constructed using voice recognition software. While every effort has been made to ensure accuracy, computing services director errors may have been included. Coding Level of Care Code Est Pt Prev Care 40-64y(04137) Diagnoses Encounter for well woman exam with routine gynecological exam Z01.419
[2025-07-01 14:56] VITALS: BP 116/76; BMI 25.8
== END 2025-07-01 15:56 | disposition home or self-care (01) ==
LOC: HO.HWS 14:39
PROVIDERS: PCP Internal Medicine; Visit Provider Advanced Practice Midwife
DX: Z01.419 Encounter for gynecological examination (general) (routine) without abnormal findings (principal)
CPT/HCPCS: 99396; 99459

== ENCOUNTER → 2025-07-01 14:39 | Outpatient (BNVA) | payer MEDICARE, MEDICAID, SELFPAY | PROVIDERS: PCP Internal Medicine; Visit Provider Advanced Practice Midwife | DX: Z01.419 Encounter for gynecological examination (general) (routine) without abnormal findings (principal) | CPT/HCPCS: 99396 ==

== ENCOUNTER 2025-07-13 14:18 | Outpatient (REF) | payer MEDICARE, MEDICAID, SELFPAY ==
--- NOTE | ~2025-07-13 | MM_ITS ---
EXAMINATION: MM SCREENING DIGITAL BREAST TOMOSYNTHESIS, BILATERAL CLINICAL INFORMATION: Screening. Asymptomatic. COMPARISON: Mammography: Comparison is made with available priors TECHNIQUE: Digital breast mammography with tomosynthesis is performed in both the craniocaudal and mediolateral oblique views along with computer-aided detection (CAD). FINDINGS: There are scattered areas of fibroglandular density. Left: Pacemaker overlies and obscures the superior posterior left breast on MLO view. There are no significant masses, abnormal calcifications, or other abnormalities. Right: Asymmetry axillary region on MLO view. No suspicious calcifications or other abnormal findings. MM/MM tomosynthesis screening BI IMPRESSION: Additional imaging is recommended ASSESSMENT: BI-RADS Category 0: Incomplete - Need additional Imaging Evaluation RECOMMENDATION: 1. Additional views of the right breast. 2. Targeted ultrasound if warranted after review of the additional views. 3. Radiology department staff will contact the patient for additional imaging. Additional Imaging required Electronically signed by: Dhara Ku DO 07/14/2025 12:51 PM EDT
== END 2025-07-13 14:19 | disposition home or self-care (01) ==
LOC: HO.MAMMO 14:18
PROVIDERS: PCP Internal Medicine; Visit Provider Internal Medicine
DX: Z12.31 Encounter for screening mammogram for malignant neoplasm of breast (principal)
CPT/HCPCS: 77063; 77067

== ENCOUNTER → 2025-07-13 14:45 | Outpatient (BNV) | payer MEDICARE, MEDICAID, SELFPAY | PROVIDERS: PCP Internal Medicine; Visit Provider Internal Medicine | DX: Z12.31 Encounter for screening mammogram for malignant neoplasm of breast (principal) | CPT/HCPCS: 77063; 77067 ==